=== PATIENT | female | born 1935 | race Hispanic/Latino ===

== ENCOUNTER → 2017-11-28 | Outpatient (CLI) | payer OTHER ==
[~2017-11-28] MED LIST: DIOVAN80 MG PO; METFORMIN HCL500 MG PO; OMEPRAZOLE40 MG PO; ULTRAM 50MG50 MG PO
--- NOTE | 2017-11-28 13:18 | Diagnostic Imaging Report ---
PROCEDURE:US RETROPERITONEAL ( KIDNEY ). COMPARISON:Patients [facility], US, US ABDOMEN COMPLETE, 05/24/2016, 10:15. INDICATIONS:Bladder Infection TECHNIQUE:Ultrasound examination was performed of the kidneys and bladder. FINDINGS: RIGHT KIDNEY:9.4 cm in length. No solid or cystic mass, echogenic calculi, or hydronephrosis. Normal parenchymal echogenicity. LEFT KIDNEY: 10.5 cm in length. No solid or cystic mass, echogenic calculi, or hydronephrosis. Normal parenchymal echogenicity. Mild prominence of the left renal pelvis likely a small extrarenal pelvis without dilatation of the calyceal system. BLADDER:Normal. CONCLUSION: Small left extrarenal pelvis, otherwise unremarkable renal ultrasound. Bettina ADAM M.D. DICTATED BY: Bettina ADAM M.D. ON 11/28/2017 AT 13:20 ELECTRONICALLY APPROVED BY: Bettina ADAM M.D. ON 11/28/2017 AT 13:20
== END ==
LOC: US 11:45
PROVIDERS: ATTEND Urology
DX: N30.90 Cystitis, unspecified without hematuria (principal)
CPT/HCPCS: 76770

== ENCOUNTER → 2018-07-16 | Outpatient (CLI) | payer OTHER ==
[~2018-07-16] MED LIST changes: +ACETAMINOPHEN325 M1 PO; +HYDROCHLOROTHIA25 MG PO; +IOPAMIDOL 370 MG/ML 200 ML INFUS..BTL INJ ONE; +LOSARTAN POTAS100 MG PO; +SODIUM CHLORIDE 0.9% 50ML 50 ML ONE; +TRADJENTA5 MG PEG; +linzess PO
[2018-07-16 14:05] LABS: BLOOD UREA NITROGEN 8 mg/dL (7-26); BUN/CREATININE RATIO 10 (6-25); EST GLOMERULAR FILTRATION RATE > 60 ML/MIN (60-)
--- NOTE | 2018-07-16 15:08 | Diagnostic Imaging Report ---
EXAM: CT Abdomen and Pelvis WITH contrast INDICATION: ^[id number] ^1430 ^LOWER ABD PAIN/DIVERTICULOSIS COMPARISON: None. TECHNIQUE: Abdomen and pelvis were scanned utilizing a multidetector helical scanner from the lung base to the pubic symphysis after administration of IV contrast. Coronal and sagittal reformations were obtained. Dose modulation, iterative reconstruction, and/or weight based adjustment of the mA/kV was utilized to reduce the radiation dose to as low as reasonably achievable. Routine protocol was performed. Scan was performed when during portal venous phase. IV CONTRAST: 100 mL of Isovue-370 ORAL CONTRAST: Water COMPLICATIONS: None RADIATION DOSE: Total DLP: 590.30 mGy*cm Estimated effective dose: (DLP x 0.015 x size factor) mSv CTDIvol has been reviewed. It is below the limits set by the Radiation Protocol Committee (RPC). FINDINGS: LINES and TUBES: None. LOWER THORAX: Unremarkable HEPATOBILIARY: No focal hepatic lesions. No biliary ductal dilation. GALLBLADDER: Not visualized. SPLEEN: No splenomegaly. PANCREAS: No focal masses or ductal dilatation. ADRENALS: No adrenal nodules KIDNEYS/URETERS: Kidneys enhance symmetrically. No hydronephrosis. Mildly hyperdense exophytic left inferior pole hypodensity, could represent a complex cyst. There are additional left renal subcentimeter hypodensities which are too small to characterize. No stones. GI TRACT: No abnormal distention, wall thickening, or evidence of bowel obstruction. Few scattered colonic diverticula without evidence of diverticulitis. Appendix is surgically absent. PELVIC ORGANS/BLADDER: Status post hysterectomy. Bladder is unremarkable. LYMPH NODES: No lymphadenopathy. VESSELS: Moderate aortoiliac atherosclerotic disease. PERITONEUM / RETROPERITONEUM: No free air or fluid. BONES: No acute osseous abnormalities. Degenerative changes of the hips and spine, most notable at L5-S1. SOFT TISSUES: Evidence of abdominal wall hernia repair. IMPRESSION: 1. No acute inflammatory process in the abdomen/pelvis. 2. Mildly hyperdense left renal inferior pole lesion is probably a complex cyst. Renal ultrasound can be obtained for further evaluation. Signed by: Dr. Mitul Guadarrama MD on 07/16/2018 3:05 PM
== END ==
LOC: CT 12:30
PROVIDERS: ATTEND Family Medicine
DX: R10.30 Lower abdominal pain, unspecified (principal); R11.2 Nausea with vomiting, unspecified; K57.90 Diverticulosis of intestine, part unspecified, without perforation or abscess without bleeding
CPT/HCPCS: 36415; 74177; 82565; 84520; Q9967

== ENCOUNTER 2018-07-17 22:57 | Emergency (ER) | payer MEDICARE ==
[~2018-07-17] VITALS: Ht 149.9 cm; Wt 60.8 kg
[~2018-07-17 22:57] MED LIST changes: -ACETAMINOPHEN325 M1 PO; -HYDROCHLOROTHIA25 MG PO; -IOPAMIDOL 370 MG/ML 200 ML INFUS..BTL INJ ONE; -LOSARTAN POTAS100 MG PO; -SODIUM CHLORIDE 0.9% 50ML 50 ML ONE; -TRADJENTA5 MG PEG; -linzess PO
--- OUTSIDE RECORDS SUMMARY | 2018-07-17 23:00 | XMS REPORT ---
Author Author [facility] Address Unknown Phone Unavailable Care Team Providers Care Destination Specialist Name Role Phone LIGIA WEST Unavailable Unavailable Christi RINCON Unavailable Unavailable Payers Payer Name Policy Type Policy Number Effective Date Expiration Date Problems This patient has no known problems. Allergies, Adverse Reactions, Alerts Allergy Name Allergy Type Status Severity Reaction(s) Onset Date Inactive Date Treating Clinician Comments codeine DA Active MO 2018-06-28 00:00:00 codeine DA Active MO 2017-07-17 00:00:00 Medications This patient has no known medications. Results Test Description Test Time Test Comments Text Results Atomic Results Result Comments CT ABDOMEN/PELVIS W 2018-07-16 14:47:00 [place] [address] Patient Name: SHARLENE MOORE MR #: [id number] : 1935 Age/Sex: 83/F Req #: [id number] Adm Physician: Ordered by: LIGIA WEST DO Report #: [id number] Location: CT Room/Bed: Procedure: [id number] CT/CT ABDOMEN/PELVIS W Exam Date: 07/16/18 Exam Time: 1430 REPORT STATUS: Signed EXAM: CT Abdomen and Pelvis WITH contrast INDICATIO N: [id number] 1430 LOWER ABD PAIN/DIVERTICULOSIS COMPARISON: None. TECHNIQUE: Abdomen and pelvis were scanned utilizing a multidetector helical scanner from the lung base to the pubic symphysis after administration of IV contrast. Coronal and sagittal reformations were obtained. Dose modulation, iterative reconstruction, and/or weight based adjustment of the mA/kV was utilized to reduce the radiation dose to as low as reasonably achievable. Routine protocol was performed. Scan was performed when during portal venous phase. IV CONTRAST: 100 mL of Isovue-370 ORAL CONTRAST: Water COMPLICATIONS: None RADIATION DOSE: Total DLP: 590.30 mGy*cm Estimated effective dose: (DLP x 0.015 x size factor) mSv CTDIvol has been reviewed. It is below the limits set by the Radiation Protocol Committee (RPC). FINDINGS: LINES and TUBES: None. LOWER THORAX: Unremarkable HEPATOBILIARY: No focal hepatic l esions. No biliary ductal dilation. GALLBLADDER: Not visualized. SPLEEN: No splenomegaly. PANCREAS: No focal masses or ductal dilatation. ADRENALS: No adrenal nodules KIDNEYS/URETERS: Kidneys enhance symmetrically. No hydronephrosis. Mildly hyperdense exophytic left inferior pole hypodensity, could represent a complex cyst. There are additional left renal subcentimeter hypodensities which are too small to characterize. No stones. GI TRACT: No abnormal distention, wall thickening, or evidence of bowel obstruction. Few scattered colonic diverticula without evidence of diverticulitis. Appendix is surgically absent. PELVIC ORGANS/BLADDER: Status post hysterectomy. Bladder is unremarkable. LYMPH NODES: No lymphadenopathy. VESSELS: Moderate aortoiliac atherosclerotic disease. PERITONEUM / RETROPERITONEUM: No free air or fluid. BONES: No acute osseous abnormalities. Degenerative changes of the hips and spine, most notable at L5- S1. SOFT TISSUES: Evidence of abdominal wall hernia repair. IMPRESSION: 1. No acute inflammatory process in the abdomen/pelvis. 2. Mildly hyperdense left renal inferior pole lesion is probably a complex cyst. Renal ultrasound can be obtained for further evaluation. Signed by: Dr. Mitul Witt MD on 07/16/2018 3:05 PM Dictated By: MITUL WITT MD 1502 Transcribed By: JOHN on 07/16/18 1501 COPY TO: LIGIA WEST DO US RENAL RETROPERITONEAL COMP [place] [address] Patient Name: SHARLENE MOORE MR #: [id number] : 1935 Age/Sex: 82/F Req #: [id number] Adm Physician: Ordered by: JILLIAN RINCON MD Report #: [id number] Location: Room/Bed: Procedure: [id number] US/US RENAL RETROPERITONEAL COMP Exam Date: Exam Time: REPORT STATUS: Signed PROCEDURE: US RETROPERITONEAL ( KIDNEY ). COMPARISON: Patients [facility], US, US ABDOMEN COMPLETE, 05/24/2016, 10:15. INDICATIONS: Bladder Infection TECHNIQUE: Ultrasound examination was performed of the kidneys and bladder. FINDINGS: RIGHT KIDNEY: 9.4 cm in length. No solid or cystic mass, echogenic calculi, or hydronephrosis. Normal parenchymal echogenicity. LEFT KIDNEY: 10.5 cm in length. No solid or cystic mass, echogenic calculi, or hydronephrosis. Normal parenchymal echogenicity. Mild prominence of the left renal pelvis likely a small extrarenal pelvis without dilatation of the calyceal system. BLADDER: Normal. CONCLUSION: Small left extrarenal pelvis, otherwise unremarkable renal ultrasound. Bettina ADAM M.D. DICTATED BY: Bettina ADAM M.D. ON 11/28/2017 AT 13:20 ELECTRONICALLY APPROVED BY: Bettina ADAM M.D. ON 11/28/2017 AT 13:20 Dictated By: YAMIL ADAM MD, MD 1320 Transcribed By: ALIN on 11/28/17 1320 COPY TO: JILLIAN RINCON MD
[2018-07-17] MEDS ORDERED: CLONIDINE HCL 0.2 MG TAB PO ONE (23:15)
[2018-07-17] MEDS ORDERED: HYDROCHLOROTHIA25 MG PO (23:58)
[2018-07-17] MEDS ORDERED: LOSARTAN POTAS100 MG PO (23:58)
[2018-07-17] MEDS ORDERED: TRADJENTA5 MG PEG (23:58)
[2018-07-17] MEDS ORDERED: ACETAMINOPHEN325 M1 PO (23:58)
[2018-07-18 01:41] VITALS: BP 140/69
[2018-07-19] MEDS ORDERED: linzess PO (21:22)
== END 2018-07-18 01:52 | disposition home or self-care (01) ==
LOC: ER 22:57
DX: I10 Essential (primary) hypertension (principal); E11.9 Type 2 diabetes mellitus without complications; E78.00 Pure hypercholesterolemia, unspecified
CPT/HCPCS: 99282

== ENCOUNTER 2018-07-19 16:38 | Observation (INO) | payer MEDICARE, OTHER ==
[~2018-07-19] VITALS: Ht 149.9 cm; Wt 61.0 kg
[~2018-07-19 16:38] MED LIST changes: +ACETAMINOPHEN325 M1 PO; +HYDROCHLOROTHIA25 MG PO; +LOSARTAN POTAS100 MG PO; +TRADJENTA5 MG PEG
[2018-07-19] MEDS ORDERED: ASPIRIN 81 MG CHEW TAB PO ONE (17:30)
--- NOTE | 2018-07-19 18:42 | Diagnostic Imaging Report ---
EXAMINATION: CHEST SINGLE (PORTABLE) INDICATION: CHEST PAIN COMPARISON: None FINDINGS: TUBES and LINES: None. LUNGS: Mild left basilar subsegmental atelectasis. There is no evidence of pneumonia or pulmonary edema. PLEURA: No pleural effusion or pneumothorax. HEART AND MEDIASTINUM: The cardiomediastinal silhouette is unremarkable. BONES AND SOFT TISSUES: No acute osseous lesion. UPPER ABDOMEN: No free air under the diaphragm. IMPRESSION: No acute thoracic abnormality. Signed by: Dr. Bettina Clements M.D. on 07/19/2018 6:38 PM
[2018-07-19 19:00] LABS: BASOPHILS % 0.5 % (0.0-1.0); EOSINOPHILS # (AUTO) 0.1 (0.0-0.4); EOSINOPHILS % 0.9 % (0.0-6.0); HEMATOCRIT 39.2 % (34.2-44.1); HEMOGLOBIN 13.7 g/dL (12.0-16.0); LYMPHOCYTES # (AUTO) 1.1 (1.0-3.2); LYMPHOCYTES % 14.2 % (18.0-39.1); MEAN CORPUSCULAR HEMOGLOBIN 32.9 pg (28-32); MEAN CORPUSCULAR HGB CONC 34.9 g/dL (31-35); MONOCYTES # (AUTO) 0.6 (0.2-0.8); MONOCYTES % 7.6 % (4.4-11.3); NEUTROPHILS # (AUTO) 5.6 (2.1-6.9); NEUTROPHILS % 76.1 % (38.7-80.0); PLATELET COUNT 293 x10e3/uL (140-360); RED BLOOD COUNT 4.17 x10e6/uL (3.6-5.1); RED CELL DISTRIBUTION WIDTH 11.8 % (11.7-14.4)
[2018-07-19 19:27] LABS: INR 0.84; PROTHROMBIN TIME 12.3 seconds (11.9-14.5)
[2018-07-19 19:28] LABS: ALANINE AMINOTRANSFERASE 15 IU/L (0-55); ALBUMIN 4.5 g/dL (3.5-5.0); ALBUMIN/GLOBULIN RATIO 1.4 (0.8-2.0); ALKALINE PHOSPHATASE 93 IU/L (40-150); ANION GAP 14.8 mmol/L (8-16); BLOOD UREA NITROGEN 13 mg/dL (7-26); BUN/CREATININE RATIO 16 (6-25); CALCIUM 9.7 mg/dL (8.4-10.2); CARBON DIOXIDE 23 mmol/L (22-29); CHLORIDE 91 mmol/L (98-107); CREATINE KINASE 123 IU/L (29-168); CREATININE, SERUM 0.81 mg/dL (0.57-1.11); EST GLOMERULAR FILTRATION RATE > 60 ML/MIN (60-); GLUCOSE 112 mg/dL (74-118); PARTIAL THROMBOPLASTIN TIME 29.9 seconds (23.8-35.5); POTASSIUM 3.8 mmol/L (3.5-5.1); SODIUM 125 mmol/L (136-145)
[2018-07-19] MEDS ORDERED: CLONIDINE HCL 0.1 MG TAB PO ONE (20:00)
[2018-07-19] MEDS ORDERED: SODIUM CHLORIDE 0.9% 1000ML 1,000 ML IV STA (20:10)
[2018-07-19] MEDS ORDERED: linzess PO (21:22)
[2018-07-19] MEDS ORDERED: SODIUM CHLORIDE 0.9% 1000ML 1,000 ML IV SCH (21:22)
[2018-07-19] MEDS ORDERED: HYDRALAZINE HCL 20 MG/ML VIAL IV PRN (21:30)
[2018-07-19] MEDS ORDERED: DEXTROSE 50% SYRINGE 50 ML IV PRN (21:30)
[2018-07-19 21:54] LABS: CLARITY,URINE HAZY (CLEAR); COLOR,URINE YELLOW (YELLOW)
[2018-07-19 21:55] LABS: BILIRUBIN,URINE NEGATIVE (NEGATIVE); KETONES,URINE NEGATIVE (NEGATIVE); LEUKOCYTE ESTERASE ,URINE 1+ (NEGATIVE); NITRITE,URINE NEGATIVE (NEGATIVE); PROTEIN,URINE DIPSTICK NEGATIVE (NEGATIVE); URINE UROBILINOGEN 0.2 mg/dL (0.2 - 1)
[2018-07-19 21:56] LABS: BACTERIA,URINE MODERATE /HPF; EPITHELIAL CELLS,URINE FEW /LPF
[2018-07-19 22:31] VITALS: BP 148/65
[2018-07-19 22:56] VITALS: BP_SYST 144; BP_SYST 148; BP_DIAS 47; BP_DIAS 65
--- NOTE | 2018-07-19 23:00 | NUR ---
Received patient from ER via stretcher. AAOx3 and amb with stand by assist. Patient claimed to have fallen in the past at the MD office few days ago. No s/s of resp distress. Denies pain, DOWNS, or n/v/d at this time. Has RAC20# and started n/s @ 75cc/hr. Noted edema to ble +1. Oriented to room. Call light within reach and instructed to call for assistance. Patient verbalized understanding to instructions. Bed alarm on.
[2018-07-19 23:06] VITALS: BP 144/65
[2018-07-20 04:00] VITALS: BP 121/55
[2018-07-20 05:58] LABS: BASOPHILS % 0.7 % (0.0-1.0); EOSINOPHILS # (AUTO) 0.1 (0.0-0.4); EOSINOPHILS % 1.9 % (0.0-6.0); HEMATOCRIT 32.8 % (34.2-44.1); HEMOGLOBIN 11.3 g/dL (12.0-16.0); LYMPHOCYTES % 16.8 % (18.0-39.1); MEAN CORPUSCULAR HEMOGLOBIN 32.8 pg (28-32); MEAN CORPUSCULAR HGB CONC 34.5 g/dL (31-35); MEAN CORPUSCULAR VOLUME 95.3 fL (81-99); MONOCYTES # (AUTO) 0.7 (0.2-0.8); MONOCYTES % 12.1 % (4.4-11.3); PLATELET COUNT 244 x10e3/uL (140-360); RED BLOOD COUNT 3.44 x10e6/uL (3.6-5.1); RED CELL DISTRIBUTION WIDTH 11.9 % (11.7-14.4)
[2018-07-20 06:11] LABS: ALANINE AMINOTRANSFERASE 11 IU/L (0-55); ALBUMIN 3.2 g/dL (3.5-5.0); ALBUMIN/GLOBULIN RATIO 1.3 (0.8-2.0); ALKALINE PHOSPHATASE 65 IU/L (40-150); BLOOD UREA NITROGEN 11 mg/dL (7-26); BUN/CREATININE RATIO 15 (6-25); CALCIUM 8.4 mg/dL (8.4-10.2); CARBON DIOXIDE 23 mmol/L (22-29); CHLORIDE 103 mmol/L (98-107); CREATININE, SERUM 0.72 mg/dL (0.57-1.11); EST GLOMERULAR FILTRATION RATE > 60 ML/MIN (60-); GLUCOSE 104 mg/dL (74-118); SODIUM 134 mmol/L (136-145)
--- NOTE | 2018-07-20 07:00 | NUR ---
SHIFT REPORT RECEIVED FROM NIGHT RN. PT DENIES NEEDS AT THIS TIME.
[2018-07-20] MEDS: INSULIN REGULAR, HUMAN 100 UNIT/1 ML 3ML VIAL SQ SCH ×4 (07:30→20:28)
[2018-07-20 08:00] VITALS: BP 121/55
[2018-07-20 08:34] VITALS: BP 132/60
[2018-07-20] MEDS ORDERED: LINZESS 145 MG PO SCH (09:00)
[2018-07-20] MEDS ORDERED: LINACLOTIDE 145 MCG CAPSULE PO SCH (09:00)
[2018-07-20] MEDS: NON-FORMULARY MEDICATION (Linagliptin (Tradjenta) 5 MG) PEG SCH (09:00)
[2018-07-20] MEDS: METOPROLOL TARTRATE 25 MG TAB PO SCH ×2 (09:10→17:43)
[2018-07-20] MEDS: LOSARTAN POTASSIUM 100 MG TAB PO SCH (09:10)
--- NOTE | 2018-07-20 10:16 | Consultation ---
DATE OF CONSULTATION: July 20, 2018 NEPHROLOGY CONSULTATION REASON FOR CONSULTATION: Hypertension and hyponatremia. HISTORY OF PRESENT ILLNESS: An 83-year-old female with history of hypertension presented to [facility] on July 19, 2018 with weakness and difficult to control blood pressure. The patient apparently had been in the hospital emergency room 2 nights prior with difficult to control blood pressure. Her blood pressure was brought down and she was told to followup with her primary care physician. The patient went to see her primary care physician and was instructed to go to the emergency room. The patient at this time feels much improved. She is eating breakfast and has no further complaints. REVIEW OF SYSTEMS: As above. All other systems negative. PAST MEDICAL HISTORY 1. Hypertension. 2. Diabetes. PAST SURGICAL HISTORY 1. Hernia repair. 2. Hysterectomy. 3. Appendectomy. 4. Cholecystectomy. SOCIAL HISTORY: No tobacco. No alcohol. No IV drugs. FAMILY HISTORY: Positive for hypertension and diabetes. ALLERGIES: CODEINE. CURRENT MEDICATIONS: See list. Home medications included hydrochlorothiazide, losartan, Linzess, Tradjenta. PHYSICAL EXAMINATION VITAL SIGNS: Blood pressure 121/55, pulse 76, respiratory rate 20, temperature 97.4. GENERAL: In no apparent distress. HEENT: Oropharynx is clear. No scleral icterus. No periorbital edema. NECK: Supple. No elevation of jugular venous pressure. No lymphadenopathy. CHEST: Clear to auscultation anteriorly bilaterally. CARDIOVASCULAR: Regular rhythm. No murmurs, rubs or gallops. ABDOMEN: Soft. Positive bowel sounds. No tenderness. No rebound. EXTREMITIES: No edema. No clubbing. No cyanosis. SKIN: Warm. LABS: Sodium 134 up from 125, potassium 4, chloride 103; CO2 of 23, BUN 11; creatinine 0.72, albumin 3.2. White count 5.89, hemoglobin 11.3, hematocrit 32.8; platelets 244. Urine osmolality pending, urine sodium 38, and 11 to 20 wbc's. ASSESSMENT AND PLAN 1. Hypertension. Blood pressure well controlled on current regimen. The patient should be discharged on metoprolol and losartan and hydrochlorothiazide should be discontinued. 2. Hyponatremia with symptoms of weakness suspected volume depletion. Hydrochlorothiazide again should be discontinued, instructed the patient. 3. Euvolemic on exam. The patient appeared dry when she came into the emergency room. We will discontinue IV fluids. 4. Diabetes per primary team. Job#: [id number] LAKIA
[2018-07-20] MEDS: CEFTRIAXONE SOD 1 GM/NS 50 ML 50 ML IV SCH (12:37)
--- NOTE | 2018-07-20 13:58 | History and Physical ---
CHIEF COMPLAINT: Weakness. HISTORY OF PRESENT ILLNESS: This is an 83-year-old woman who presented to [facility] with generalized weakness. Patient also states that she had diarrhea for 2 days. Patient currently take linaclotide in a formalin just for chronic constipation. In the emergency room, everything was unremarkable. Her sodium is 125. She was also found to have blood pressure of 197/86 on admission. The patient denies any chest pain at this time. Patient underwent a chest x-ray, which was unremarkable. Patient was admitted for further evaluation and treatment. Repeat electrolyte this morning revealed sodium of 134. Patient did receive a liter of normal saline overnight. Patient's B type natriuretic peptide level was normal at 29. In the emergency room, patient had urinalysis done, which revealed 1+ leukocytes esterase, 6 to 10 red blood cells per high power field, 11 to 20 white blood cells per high power field, and moderate bacteria. Urine was also hazy and yellow in color. REVIEW OF SYSTEMS GENERAL: Weight has been stable, just complaint of weakness over the last few days. HEENT: No headaches. No visual changes. CARDIOVASCULAR/RESPIRATORY: No chest pain or cough. GI: Has chronic constipation for the past few days. She has had diarrhea. : Complaints of urinary frequency, but no UTI type symptoms. NEUROMUSCULAR: No limb weakness or numbness. PAST MEDICAL HISTORY 1. Hypertensive heart disease. 2. Type 2 diabetes mellitus. 3. Chronic constipation. PAST SURGICAL HISTORY 1. Abdominal hernia repair 3 times, last one in 2016. 2. Cholecystectomy. 3. Hysterectomy. ALLERGIES: CODEINE. FAMILY HISTORY: Noncontributory. SOCIAL HISTORY: Woman has been for many years, currently lives with an adult son and granddaughter. No history of tobacco or alcohol use. HOME MEDICATIONS 1. Tradjenta 5 mg daily. 2. Losartan 100 mg daily. 3. Hydrochlorothiazide 25 mg. 4. Linzess 145 mcg daily. PHYSICAL EXAMINATION GENERAL: She is awake, alert and found in distress, very pleasant. VITALS: Height is 4 feet 11 inches, weight is 134 pounds, and BMI 27. Her adult son is at bedside who provides most of the history. Blood pressure is 130/60, pulse 72, respiratory rate is 18, oxygen saturation 99%, and temperature 97.0. INTEGUMENT: Skin is warm and dry. No pallor, jaundice or diaphoresis. HEENT: Anicteric sclerae. Moist mucous membranes. NECK: Supple. CARDIOVASCULAR: Distant heart sounds. Regular rate and rhythm. No S4 or gallops. LUNGS: No rales. No rhonchi. No wheezing. ABDOMEN: Soft. Nontender. No masses or organomegaly appreciated. EXTREMITIES: No edema or deformity. DIAGNOSES 1. Hypertensive heart disease. 2. Hypernatremia likely secondary to hypervolemia and diuretic use. 3. Urinary tract infection. 4. Type 2 diabetes mellitus. 5. Iatrogenic diarrhea (likely secondary to linaclotide). PLAN 1. Stop linaclotide in form of Linzess because of diarrhea. 2. Discontinue hydrochlorothiazide as per renal's recommendation. 3. Stop intravenous fluid, suspicion has hypertensive heart disease. 4. Blood pressure controlled. 5. Continue metoprolol 25 mg twice a day and losartan 100 mg for blood pressure control. 6. We will follow urine culture. 7. We will start empiric intravenous ceftriaxone for patient's urinary tract infection. 8. Follow electrolytes. I spent 45 minutes in the care of this patient. Job#: [id number] GEORGIA CENTENO
[2018-07-20 14:44] VITALS: BP 127/59
--- NOTE | 2018-07-20 15:11 | NUR ---
Nutrition Screen Note RD Recommendation for Physician: Continue diet as ordered Plan of Care: RD following, monitoring for adequacy and tolerance Nutrition reason for involvement: Nutrition Risk Trigger - MST Primary Diagnose(s): HTN/hyponatremia Ht:59 in Wt:134.44lbs BMI:27.2 kg/m2 IBW:95lbs RD Assessment:(07/20/2018) Initial encounter with patient. Pt denies nausea, vomiting or diarrhea, nor has any difficulty chewing or swallowing. Pt states that she avoids spicy foods. Current Diet: 1800 ADA Malnutrition Evaluation (07/20/2018) The patient does not meet criteria for a specified degree of malnutrition at this time. Will re-evaluate at follow-up as appropriate. Diet Education Needs Assessment: Diet education not indicated. Diet Adequacy: Meeting calorie needs, Meeting protein needs, Meeting fluid needs Tolerance: Tolerating PO Nutrition Care Level: Erik Figuerao RD, LD, CNSC
[2018-07-20 16:53] VITALS: BP 141/63
[2018-07-20 20:00] VITALS: BP 149/68
[2018-07-21] VITALS: BP 168/71
[2018-07-21 00:45] VITALS: BP 132/70
[2018-07-21 04:00] VITALS: BP 132/61
[2018-07-21 06:21] LABS: BASOPHILS # (AUTO) 0.1 (0.0-0.1); BASOPHILS % 0.8 % (0.0-1.0); EOSINOPHILS # (AUTO) 0.2 (0.0-0.4); HEMATOCRIT 37.6 % (34.2-44.1); HEMOGLOBIN 12.6 g/dL (12.0-16.0); LYMPHOCYTES # (AUTO) 1.3 (1.0-3.2); LYMPHOCYTES % 17.6 % (18.0-39.1); MEAN CORPUSCULAR HEMOGLOBIN 32.5 pg (28-32); MEAN CORPUSCULAR HGB CONC 33.5 g/dL (31-35); MEAN CORPUSCULAR VOLUME 96.9 fL (81-99); MONOCYTES # (AUTO) 0.9 (0.2-0.8); MONOCYTES % 11.7 % (4.4-11.3); NEUTROPHILS # (AUTO) 5.2 (2.1-6.9); NEUTROPHILS % 67.6 % (38.7-80.0); PLATELET COUNT 265 x10e3/uL (140-360); RED BLOOD COUNT 3.88 x10e6/uL (3.6-5.1); RED CELL DISTRIBUTION WIDTH 12.3 % (11.7-14.4)
[2018-07-21 06:51] LABS: ANION GAP 13.2 mmol/L (8-16); BLOOD UREA NITROGEN 13 mg/dL (7-26); BUN/CREATININE RATIO 18 (6-25); CALCIUM 9.3 mg/dL (8.4-10.2); CARBON DIOXIDE 24 mmol/L (22-29); CHLORIDE 104 mmol/L (98-107); CREATININE, SERUM 0.72 mg/dL (0.57-1.11); EST GLOMERULAR FILTRATION RATE > 60 ML/MIN (60-); GLUCOSE 104 mg/dL (74-118); POTASSIUM 4.2 mmol/L (3.5-5.1); SODIUM 137 mmol/L (136-145)
--- NOTE | 2018-07-21 07:00 | NUR ---
SHIFT REPORT RECEIVED FROM NIGHT RN. PT DENIES NEEDS AT THIS TIME.
[2018-07-21] MEDS: INSULIN REGULAR, HUMAN 100 UNIT/1 ML 3ML VIAL SQ SCH ×2 (07:30→11:30)
[2018-07-21 08:00] VITALS: BP 132/61
[2018-07-21 08:16] VITALS: BP 157/70
[2018-07-21] MEDS: NON-FORMULARY MEDICATION (Linagliptin (Tradjenta) 5 MG) PEG SCH (08:20)
[2018-07-21] MEDS: LOSARTAN POTASSIUM 100 MG TAB PO SCH (08:21)
[2018-07-21] MEDS ORDERED: METOPROLOL TARTRATE 25 MG TAB PO SCH (09:00)
[2018-07-21 12:02] VITALS: BP 142/66
[2018-07-21] MEDS: CEFTRIAXONE SOD 1 GM/NS 50 ML 50 ML IV SCH (12:39)
[2018-07-21] MEDS ORDERED: CEFUROXIME250 MG PO (12:59)
[2018-07-21] MEDS ORDERED: LOSARTAN POTAS100 MG PO (13:02)
[2018-07-21] MEDS ORDERED: METOPROLOL TART25 MG PO (13:02)
--- NOTE | 2018-07-21 13:12 | Discharge Summary ---
ADMISSION DIAGNOSES 1. Hypertensive heart disease. 2. Hyponatremia likely secondary to hypovolemia and diuretic use. 3. Urinary tract infection. 4. Type 2 diabetes mellitus. 5. Iatrogenic diarrhea likely secondary to linaclotide. DISCHARGE DIAGNOSES 1. Hyponatremia, resolved. 2. Hypertensive heart disease. 3. Urinary tract infection. 4. Iatrogenic diarrhea, resolved. HOSPITAL COURSE: This is an 83-year-old white woman who was initially admitted to [facility] with diagnosis of hypertensive heart disease and hyponatremia. The patient was seen by nephrology during this hospitalization, namely Dr. Marco Ferrera. Aboriginal Education Worker Coordinator felt that the patient's hyponatremia was secondary to volume depletion and diuretic use, namely hydrochlorothiazide. The patient was also diagnosed with urinary tract infection during this hospitalization, but urine culture did not reveal any bacterial growth. The patient's blood pressure was adequately controlled with oral losartan 100 mg daily and metoprolol tartrate 25 mg twice mg. The patient apparently had untoward reaction, namely altered mental status with intravenous hydralazine. The patient's hyponatremia resolved with intravenous saline and with the discontinuation of hydrochlorothiazide. The patient's condition on discharge was stable. DISCHARGE MEDICATIONS 1. Metoprolol tartrate 25 mg p.o. b.i.d. 2. Losartan 100 mg daily. 3. Cefuroxime 250 mg twice a day for 5 more days. We are going to discontinue hydrochlorothiazide, linagliptin, and Linzess. FOLLOWUP INSTRUCTIONS: Patient is instructed to follow up with her primary care doctor, namely Dr. Alma Rosa Silverio within 1 week. LEVON ESCOBAR MD Job#: [id number] ANGÉLICA cc: DR. AL[facility]
== END 2018-07-21 14:23 | disposition home or self-care (01) ==
LOC: ER 16:38 → INTOOBSV 21:32 → ERHOLD 21:32 → MED/SURG 22:32
DX: I11.9 Hypertensive heart disease without heart failure (principal); E87.1 Hypo-osmolality and hyponatremia; K52.1 Toxic gastroenteritis and colitis; T50.995A Adverse effect of other drugs, medicaments and biological substances, initial encounter; E11.9 Type 2 diabetes mellitus without complications; K59.09 Other constipation; T50.2X5A Adverse effect of carbonic-anhydrase inhibitors, benzothiadiazides and other diuretics, initial encounter; N39.0 Urinary tract infection, site not specified
CPT/HCPCS: 36415 ×3; 71045; 80048; 80053 ×2; 81001; 82550; 82553; 82948 ×3; 83880; 83935; 84300; 84484; 85025 ×3; 85610; 85730; 87086; 93005; 96361; 99284; G0378 ×3; J0360; J0696 ×2; J7030

== ENCOUNTER → 2018-08-05 | Outpatient (CLI) | payer OTHER ==
[~2018-08-05] MED LIST changes: +CEFUROXIME250 MG PO; +METOPROLOL TART25 MG PO; +linzess PO
--- NOTE | 2018-08-05 15:54 | Diagnostic Imaging Report ---
EXAM: BONE MINERAL DENSITY HISTORY: Bone mineralization evaluation COMPARISON: None DISCUSSION: Evaluation of the left hip and lumbar spine was performed utilizing DEXA Hologic bone densitometer. The study is technically adequate. The patient's fracture risk is compared to an age-matched control. The patient denies prior surgery/fracture of the spine, hips or forearm. Left hip femoral neck bone mineral density: 0.82 g/cm2, T-score is -0.2, Z-score is 2.3. Left hip total bone mineral density: 0.89 g/cm2, T-score is -0.4, Z-score is 1.9. Lumbar spine total bone mineral density: 0.95 gm/cm2, T-score is -0.9, Z-score is 1.9. Impression: Bone mineralization by WHO Classification is normal, the fracture risk is not increased. Signed by: Dr. Gregor Arrington M.D. on 08/05/2018 3:51 PM
== END ==
LOC: DX 13:08
PROVIDERS: ATTEND Family Medicine
DX: M81.0 Age-related osteoporosis without current pathological fracture (principal)
CPT/HCPCS: 77080

== ENCOUNTER 2018-08-11 14:48 | Emergency (ER) | payer OTHER ==
[~2018-08-11] VITALS: Ht 137.2 cm; Wt 58.5 kg
[2018-08-11 15:51] LABS: BASOPHILS # (AUTO) 0.1 (0.0-0.1); BASOPHILS % 0.8 % (0.0-1.0); EOSINOPHILS # (AUTO) 0.1 (0.0-0.4); EOSINOPHILS % 1.1 % (0.0-6.0); HEMATOCRIT 35.8 % (34.2-44.1); HEMOGLOBIN 12.6 g/dL (12.0-16.0); LYMPHOCYTES # (AUTO) 0.9 (1.0-3.2); LYMPHOCYTES % 14.1 % (18.0-39.1); MEAN CORPUSCULAR HEMOGLOBIN 33.4 pg (28-32); MEAN CORPUSCULAR HGB CONC 35.2 g/dL (31-35); MONOCYTES # (AUTO) 0.4 (0.2-0.8); MONOCYTES % 6.6 % (4.4-11.3); NEUTROPHILS # (AUTO) 4.8 (2.1-6.9); NEUTROPHILS % 77.1 % (38.7-80.0); PLATELET COUNT 266 x10e3/uL (140-360); RED BLOOD COUNT 3.77 x10e6/uL (3.6-5.1); RED CELL DISTRIBUTION WIDTH 12.4 % (11.7-14.4)
[2018-08-11 15:58] LABS: CLARITY,URINE CLEAR (CLEAR); COLOR,URINE YELLOW (YELLOW)
[2018-08-11 15:59] LABS: BILIRUBIN,URINE NEGATIVE (NEGATIVE); KETONES,URINE NEGATIVE (NEGATIVE); LEUKOCYTE ESTERASE ,URINE 1+ (NEGATIVE); NITRITE,URINE NEGATIVE (NEGATIVE); PROTEIN,URINE DIPSTICK NEGATIVE (NEGATIVE); URINE UROBILINOGEN 0.2 mg/dL (0.2 - 1)
[2018-08-11 16:03] LABS: BACTERIA,URINE FEW /HPF; EPITHELIAL CELLS,URINE FEW /LPF; RBC,URINE 0-5 /HPF (0-5)
[2018-08-11 16:04] LABS: ALANINE AMINOTRANSFERASE 22 IU/L (0-55); ALBUMIN 4.1 g/dL (3.5-5.0); ALBUMIN/GLOBULIN RATIO 1.4 (0.8-2.0); ALKALINE PHOSPHATASE 69 IU/L (40-150); BLOOD UREA NITROGEN 8 mg/dL (7-26); BUN/CREATININE RATIO 11 (6-25); CALCIUM 9.3 mg/dL (8.4-10.2); CARBON DIOXIDE 26 mmol/L (22-29); CHLORIDE 102 mmol/L (98-107); CREATININE, SERUM 0.75 mg/dL (0.57-1.11); EST GLOMERULAR FILTRATION RATE > 60 ML/MIN (60-); GLUCOSE 100 mg/dL (74-118); SODIUM 139 mmol/L (136-145)
--- NOTE | 2018-08-11 16:25 | NUR ---
AWAITING PHARMACY TO VERIFY MEDS.
--- NOTE | 2018-08-11 16:40 | NUR ---
AWAITING PHARMACY TO VERIFY MEDS.
--- NOTE | 2018-08-11 16:47 | NUR ---
S/W PHARMACY REGARDING UNVERIFIED MEDS
--- NOTE | 2018-08-11 17:16 | Diagnostic Imaging Report ---
EXAM: CT Abdomen and Pelvis WITHOUT contrast INDICATION: Pain COMPARISON: 07/16/2018 CT, no report available. TECHNIQUE: Abdomen and Pelvis was scanned utilizing a multidetector helical scanner without the use of IV contrast. Coronal and sagittal reformations were obtained. IV CONTRAST: None COMPLICATIONS: None RADIATION DOSE: Total DLP: 230 mGy*cm Estimated effective dose: (DLP x 0.015 x size factor) mSv CTDIvol has been reviewed. It is below the limits set by the Radiation Protocol Committee (RPC). Appropriate CT dose reduction techniques were utilized. FINDINGS: Abdomen: Lung Bases: Atelectasis. 3 x 6 mm nodule left lower lobe series 3 image 61 Solid Organs: Evaluation limited by lack of IV contrast. Mild bilateral perinephric stranding statistically senescent. No renal or ureteral calculi. Remainder nonenhanced exam unremarkable. Upper GI Tract: No small bowel obstructive changes. Vascularity: Moderate aortic vascular calcifications with no aneurysm. Lymph Nodes: No suspicious adenopathy. Other: Tiny fat-containing ventral wall hernia with additional postsurgical changes ventral wall. Pelvis: Bladder: Unremarkable. Other: Uterus absent. Colon: No acute colonic findings. Bones: Degenerative changes. IMPRESSION: 1. Within limitations of nonenhanced exam, no definite acute finding. No hydronephrosis or renal calculi. No definite ureteral calculi although presumed vascular calcifications are in close proximity to distal ureters, somewhat limiting evaluation. 2. Other stable findings as above. Signed by: Dr. Yasir Dias MD on 08/11/2018 5:13 PM
[2018-08-11] MEDS ORDERED: MORPHINE SULFATE 2 MG/ML SYR 1ML IV STA (17:30)
[2018-08-11] MEDS ORDERED: CEFTRIAXONE SOD 1 GM/NS 50 ML 50 ML IV ONE (17:30)
[2018-08-11] MEDS ORDERED: CEFTRIAXONE SOD 1 GM VIAL IV ONE (17:45)
[2018-08-11] MEDS ORDERED: ONDANSETRON HCL INJ 2MG/ML 2ML 2 MG/ML VIAL IV ONE (18:15)
[2018-08-11] MEDS ORDERED: TRAMADOL/APAP 37.5MG-325MG TAB PO PRN (18:45)
[2018-08-11] MEDS ORDERED: KEFLEX500 MG PO (19:06)
[2018-08-11] MEDS ORDERED: ULTRAM50 MG PO (19:07)
[2018-08-11 19:14] VITALS: BP 159/54
== END 2018-08-11 19:37 | disposition home or self-care (01) ==
LOC: ER 14:48
DX: R10.32 Left lower quadrant pain (principal); M54.5 Low back pain; R11.2 Nausea with vomiting, unspecified; N39.0 Urinary tract infection, site not specified; I10 Essential (primary) hypertension; E11.9 Type 2 diabetes mellitus without complications; K21.9 Gastro-esophageal reflux disease without esophagitis
CPT/HCPCS: 36415; 74176; 80053; 81001; 85025; 99284; J0696; J2405

== ENCOUNTER → 2018-08-29 | Day surgery (SDC) | payer MEDICARE, OTHER ==
[~2018-08-29] MED LIST changes: +KEFLEX500 MG PO; +LABETALOL HCL 5 MG/ML 20ML VIAL ONE; +OMEPRAZOLE20 MG PO; +PHENERGAN25 MG/1 ML PO; +PROPOFOL IV EMULSION 10 MG/ML 50 ML VIAL ONE; +ULTRAM50 MG PO
[2018-08-29 09:45] VITALS: BP 136/64
== END | disposition home or self-care (01) ==
LOC: OR 06:34
PROVIDERS: ATTEND Internal Medicine Gastroenterology
DX: K29.40 Chronic atrophic gastritis without bleeding (principal); K21.9 Gastro-esophageal reflux disease without esophagitis; K44.9 Diaphragmatic hernia without obstruction or gangrene; Z71.3 Dietary counseling and surveillance; E66.3 Overweight; I10 Essential (primary) hypertension; E11.9 Type 2 diabetes mellitus without complications; M19.90 Unspecified osteoarthritis, unspecified site; Z88.6 Allergy status to analgesic agent; Z79.84 Long term (current) use of oral hypoglycemic drugs; Z68.25 Body mass index [BMI] 25.0-25.9, adult
CPT/HCPCS: 36415; 43239; 82948; 88305; 88312; J2704; J3490

== ENCOUNTER 2019-02-10 16:23 | Emergency (ER) | payer MEDICARE, OTHER ==
[~2019-02-10] VITALS: Ht 137.2 cm; Wt 58.5 kg
[~2019-02-10 16:23] MED LIST changes: -LABETALOL HCL 5 MG/ML 20ML VIAL ONE; -PROPOFOL IV EMULSION 10 MG/ML 50 ML VIAL ONE
--- OUTSIDE RECORDS SUMMARY | 2019-02-10 16:27 | XMS REPORT | CCD ---
Author Author Auto Generated Organization [facility] Address Unknown Phone Unavailable Care Team Providers Care Record Press Supervisor Name Role Phone Apolonia Costello CP [phone] Zeina Venegas CP Jagdeep Britt CP Unavailable Adán Tran CP Unavailable Albert Tate CP ChartServer, Login CP Unavailable Donny Rivera CP Unavailable Antoinette Nieves CP Unavailable Charlie Badillo CP Unavailable Marilou Blair CP Unavailable SYSTEM, SYSTEM CP Unavailable Giancarlo Richardson CP [phone] Vilma Hernandez CP Unavailable Ángel Medellin CP Unavailable Samson Mathur CP Sharlene Maciel CP Unavailable Allergies, Adverse Reactions, Alerts Substance Reaction Status codeine ?? Active Medications Medication Instructions Start Date End Date Status Pepto-Bismol 262 262 mg, 15 ml, PO, QID, PRN, 120 05/22/2011 ?? Ordered mg/15 mL oral ml, for dyspepsia, Substitution suspension Allowed, SUSP Zofran 4 mg, Route: IVP, Drug form: INJ, 05/22/2011 05/22/2011 Completed ONCE, Priority: STAT, Start date: 05/22/11 23:06:00, Stop date: 05/22/11 23:06:00 morphine Sulfate 2 mg, Route: IVP, ONCE, Priority: 05/22/2011 05/22/2011 Completed STAT, Start date: 05/22/11 23:06:00, Stop date: 05/22/11 23:06:00 Sodium Chloride 0.9% 500 mL, Rate: 1,000 ml/hr, Infuse 05/22/2011 05/22/2011 Completed (Bolus) IV 500 mL over: 0.5 hr, Route: IV, Total Volume: 500, Bolus dose, Priority: STAT, Start date: 05/22/11 21:18:00, Duration: 1 doses or times, Stop date: 05/22/11 21:47:00 Saline Flush 0.9% 5 ml, Route: IVP, Drug Form: INJ, 05/22/2011 05/23/2011 Discontinued PRN, PRN Line Flush, Start date: 05/22/11 21:18:00, Duration: 24 hr, Stop date: 05/23/11 21:17:00 Reglan 10 mg oral 10 mg, 1 tab, PO, QID, PRN, 28 tab, 05/22/2011 05/29/2011 Ordered tablet nausea, Substitution Allowed, TAB Vital Signs Most recent to oldest [Reference Range]: 1 2 3 Height 152.40 cm (05/22/2011 19:11:00) ? Temperature Oral [96.4-99.1 DegF] 98.5 DegF (05/23/2011 00:12:00) ?? 98.3 DegF (05/23/2011 00:02:00) ?? 98 DegF (05/22/2011 22:23:00) ?? Systolic Blood Pressure [90-140 mmHg] 147 mmHg *HI* (05/23/2011 00:12:00) ?? 141 mmHg *HI* (05/23/2011 00:02:00) ?? 196 mmHg *HI* (05/22/2011 22:27:00) ?? Diastolic Blood Pressure [60-90 mmHg] 86 mmHg (05/23/2011 00:12:00) ?? 71 mmHg (05/23/2011 00:02:00) ?? 70 mmHg (05/22/2011 22:27:00) ?? Respiratory Rate [14-20 BRMIN] 18 BRMIN (05/23/2011 00:12:00) ?? 18 BRMIN (05/23/2011 00:02:00) ?? 16 BRMIN (05/22/2011 22:27:00) ?? Peripheral Pulse Rate [60-100 bpm] 78 bpm (05/23/2011 00:12:00) ?? 78 bpm (05/23/2011 00:02:00) ?? 72 bpm (05/22/2011 22:27:00) ?? Weight 63.636 kg (05/22/2011 19:11:00) ? Results URINALYSIS Most recent to oldest [Reference Range]: 1 UA Turbidity [>Clear] Clear (05/22/2011 19:40:00) ?? UA Color [>Yellow] Yellow *NA* (05/22/2011 19:40:00) ?? UA pH [5.0-8.0] 6.0 (05/22/2011 19:40:00) ?? UA Spec Grav [<<=1.030] 1.010 (05/22/2011 19:40:00) ?? UA Glucose [>Negative] Negative (05/22/2011 19:40:00) ?? UA Blood [>Negative] Negative (05/22/2011 19:40:00) ?? UA Ketones [>Negative] Negative *NA* (05/22/2011 19:40:00) ?? UA Protein [>Negative] Negative (05/22/2011 19:40:00) ?? UA Urobilinogen [0.1-1.0 EU/dL] 0.2 EU/dL (05/22/2011 19:40:00) ?? UA Bili [>Negative] Negative *NA* (05/22/2011 19:40:00) ?? UA Leuk Est [>Negative] Trace *ABN* (05/22/2011 19:40:00) ?? UA Nitrite [>Negative] Negative (05/22/2011 19:40:00) ?? UA WBC [>None Seen /HPF] 3-5 /HPF (05/22/2011 19:40:00) ?? UA RBC [>0-2] None Seen (05/22/2011 19:40:00) ?? UA Bacteria [>None Seen] None Seen (05/22/2011 19:40:00) ?? UA Sq Epi [>Few] None Seen (05/22/2011 19:40:00) ?? CHEMISTRY Most recent to oldest [Reference Range]: 1 Sodium Lvl [135-145 mEq/L] 140 mEq/L (05/22/2011 20:55:00) ?? Potassium Lvl [3.5-5.1 mEq/L] 3.9 mEq/L (05/22/2011 20:55:00) ?? Chloride Lvl [95-109 mEq/L] 103 mEq/L (05/22/2011 20:55:00) ?? CO2 [24-32 mEq/L] 32 mEq/L (05/22/2011 20:55:00) ?? AGAP [10.0-20.0 mEq/L] 8.9 mEq/L *LOW* (05/22/2011 20:55:00) ?? Creatinine Lvl [0.5-1.4 mg/dL] 0.6 mg/dL (05/22/2011 20:55:00) ?? BUN [7-22 mg/dL] 11 mg/dL (05/22/2011 20:55:00) ?? B/C Ratio [6-25] 18 (05/22/2011 20:55:00) ?? Glucose Lvl 105 mg/dL 1 *NA* (05/22/2011 20:55:00) ?? Total Protein [6.4-8.4 g/dL] 8.5 g/dL *HI* (05/22/2011 20:55:00) ?? Albumin Lvl [3.5-5.0 g/dL] 4.3 g/dL (05/22/2011 20:55:00) ?? Globulin [2.0-4.0 g/dL] 4.2 g/dL *HI* (05/22/2011 20:55:00) ?? A/G Ratio [0.7-1.6] 1.0 (05/22/2011 20:55:00) ?? Calcium Lvl [8.5-10.5 mg/dL] 9.3 mg/dL (05/22/2011 20:55:00) ?? ALT [0-65 U/L] 31 U/L (05/22/2011 20:55:00) ?? AST [0-37 U/L] 25 U/L (05/22/2011 20:55:00) ?? Alk Phos [39-136 U/L] 75 U/L (05/22/2011 20:55:00) ?? Bili Total [0.2-1.3 mg/dL] 0.4 mg/dL (05/22/2011 20:55:00) ?? Lipase Lvl [73-393 U/L] 88 U/L (05/22/2011 20:55:00) ?? Total CK [12-191 U/L] 90 U/L (05/22/2011 20:55:00) ?? CK MB [0.5-3.6 ng/mL] 0.6 ng/mL (05/22/2011 20:55:00) ?? CK MB Index [0.0-2.5] 0.7 (05/22/2011 20:55:00) ?? Troponin-I [0.00-0.40 ng/mL] <0.02 ng/mL (05/22/2011 20:55:00) ?? 1Interpretive Data: Reference Ranges : 0 - 7 days : 41 - 90 mg/dL7 days - 150 yrs : 70 - 99 mg/dL (fasting), based on the clinical recommendations of the [place] [employer]. HEMATOLOGY Most recent to oldest [Reference Range]: 1 WBC [3.7-10.4 K/CMM] 6.9 K/CMM (05/22/2011 20:55:00) ?? RBC [4.20-5.40 M/CMM] 4.14 M/CMM *LOW* (05/22/2011 20:55:00) ?? Hgb [12.0-16.0 g/dL] 13.3 g/dL (05/22/2011 20:55:00) ?? Hct [36.0-48.0 %] 38.4 % (05/22/2011 20:55:00) ?? MCV [81.0-99.0 fL] 92.9 fL (05/22/2011 20:55:00) ?? MCH [27.0-31.0 pg] 32.1 pg *HI* (05/22/2011:55:00) ?? MCHC [32.0-36.0 g/dL] 34.5 g/dL (05/22/2011 20:55:00) ?? RDW [11.5-14.5 %] 13.2 % (05/22/2011 20:55:00) ?? Platelet [133-450 K/CMM] 270 K/CMM (05/22/2011 20:55:00) ?? MPV [7.4-10.4 fL] 9.4 fL (05/22/2011 20:55:00) ?? Segs [45.0-75.0 %] 63.2 % (05/22/2011 20:55:00) ?? Lymphocytes [20.0-40.0 %] 24.8 % (05/22/2011 20:55:00) ?? Monocytes [2.0-12.0 %] 6.8 % (05/22/2011 20:55:00) ?? Eosinophils [0.0-4.0 %] 4.3 % *HI* (05/22/2011 20:55:00) ?? Basophils [0.0-1.0 %] 0.9 % (05/22/2011 20:55:00) ?? Segs-Bands # [1.5-8.1 K/CMM] 4.4 K/CMM (05/22/2011 20:55:00) ?? Lymphocytes # [1.0-5.5 K/CMM] 1.7 K/CMM (05/22/2011 20:55:00) ?? Monocytes # [0.0-0.8 K/CMM] 0.5 K/CMM (05/22/2011 20:55:00) ?? Eosinophils # [0.0-0.5 K/CMM] 0.3 K/CMM (05/22/2011 20:55:00) ?? Basophils # [0.0-0.2 K/CMM] 0.1 K/CMM (05/22/2011 20:55:00) ??
--- OUTSIDE RECORDS SUMMARY | 2019-02-10 16:27 | XMS REPORT | Continuity of Care Document ---
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 Role Phone [employer] Information [email or web address] Unavailable Unavailable Problems Problem Status Onset Date Classification Date Reported Comments Source DX: M25.512-PAIN IN LEFT SHOULDER Active 01/30/2019 [facility] OSTEOPOROSIS Active 03/11/2014 [facility] ROUTINE SCREENING Active 02/01/2012 [facility] ABNORMAL CHEST XRAY Active 08/21/2011 [facility] INCISIONAL HERNIA 553.21/62615 Active 07/28/2011 [facility] INCISIONAL HERNIA Active 07/28/2011 [facility] ABD PAIN Active 05/09/2011 [facility] DM - Diabetes mellitus Active Problem 08/29/2011 [facility] GERD - Gastro-esophageal reflux disease Active Problem 08/29/2011 [facility] HTN - Hypertension Active Problem 08/29/2011 [facility] Incisional hernia Active Problem 08/29/2011 [facility] Arthritis Active Problem 02/04/2019 [facility] DM - Diabetes mellitus Active Problem 02/04/2019 [facility] GERD - Gastro-esophageal reflux disease Active Problem 02/04/2019 [facility] HTN - Hypertension Active Problem 02/04/2019 [facility] Incisional hernia Active Problem 02/04/2019 [facility] Arthritis Active Problem 08/29/2011 [facility] Hypertension Active Problem 08/12/2018 [facility] Hyponatremia Active Problem 08/12/2018 [facility] INCISIONAL HERNIA Active [facility] Medications Medication Details Route Status Patient Instructions Ordering Provider Order Date Source Cephalexin Monohydrate (Keflex) 500 Mg Capsule Every 6 Hours Active Christian 08/11/2018 [facility] Tramadol Hcl (Ultram) 50 Mg Tablet Every 6 Hours as needed for Pain Active Christian 08/11/2018 [facility] Hydrochlorothiazide 25 Mg Tablet, 12.5 Mg Oral Daily@0600 Active 07/21/2018 [facility] Linagliptin (Tradjenta) 5 Mg Tablet, 5 Mg Peg Tube Daily Active 07/21/2018 [facility] Linzess , 145 Mg Oral Daily Active 07/21/2018 [facility] Acetaminophen 325 Mg Tablet, 325 Mg Oral Daily as needed for Pain Active 07/19/2018 [facility] Tramadol Hcl (Ultram 50MG*) 50 Mg Tab, 37.5 Mg Oral As Needed for Pain Active 07/19/2018 [facility] Metformin Hcl 500 Mg Tablet, 500 Mg Oral Twice A Day Active 07/17/2018 [facility] Omeprazole 40 Mg Capsule.dr, 1 Cap Oral Daily Active 07/17/2018 [facility] Valsartan (Diovan) 80 Mg Tab, 80 Mg Oral Daily Active 07/17/2018 [facility] Restoril 15 mg, 1 cap, Route: PO, Drug form: CAP, Bedtime, PRN Sleep, Start date: 08/26/11 12:04:00, Duration: 30 day, Stop date: 09/25/11 12:03:00 PO No Longer Active Gelber 08/26/2011 [facility] Crestor 20 mg, 2 tab, Route: PO, Drug form: TAB, Bedtime, Start date: 08/25/11 21:00:00, Duration: 30 day, Stop date: 09/23/11 21:00:00 PO No Longer Active Hadad 08/26/2011 [facility] tramadol 50 mg oral tablet 50 mg, 1 tab, Route: PO, Drug form: TAB, Q4H, PRN Pain, Start date: 08/25/11 17:31:00, Duration: 30 day, Stop date: 09/24/11 17:30:00 PO No Longer Active Hadad 08/25/2011 [facility] Tylenol 325 mg, 1 tab, Route: PO, Drug form: TAB, Q4H, PRN Pain, Start date: 08/25/11 17:31:00, Duration: 30 day, Stop date: 09/24/11 17:30:00 PO No Longer Active Hadad 08/25/2011 [facility] Ultracet oral tablet 1 tab, Route: PO, Drug Form: TAB, Q4H, PRN Pain, Start date: 08/25/11 11:05:00, Duration: 30 day, Stop date: 09/24/11 11:04:00 PO No Longer Active Hadad 08/25/2011 [facility] Milk of Magnesia 60 ml, Route: PO, Drug Form: SUSP, ONCE, Start date: 08/25/11 11:04:00, Stop date: 08/25/11 11:04:00 PO No Longer Active Hadad 08/25/2011 [facility] Diovan 80 mg, 1 tab, Route: PO, Drug form: TAB, Daily, Start date: 08/25/11 9:00:00, Duration: 30 day, Stop date: 09/23/11 9:00:00 PO No Longer Active Hadad 08/25/2011 [facility] metFORmin 500 mg oral tablet 500 mg, 1 tab, Route: PO, Drug form: TAB, Breakfast, Start date: 08/25/11 8:00:00, Duration: 30 day, Stop date: 09/23/11 8:00:00 PO No Longer Active Hadad 08/25/2011 [facility] acetaminophen-hydrocodone 325 mg-5 mg oral tablet 1 tab, Route: PO, Drug Form: TAB, Q4H, PRN Pain, Start date: 08/24/11 13:06:00, Duration: 30 day, Stop date: 09/23/11 13:05:00 PO No Longer Active Hadad 08/24/2011 [facility] Dilaudid 0.5 mg, 0.25 mL, Route: IVP, Drug form: INJ, Q3H, PRN Severe Pain, Start date: 08/24/11 13:06:00, Duration: 30 day, Stop date: 09/23/11 13:05:00 IVP No Longer Active Hadad 08/24/2011 [facility] NovoLog FlexPen 18 unit, 0.18 mL, Route: SUB-Q, Drug form: SOLN, Q6H, PRN Blood Glucose Results, Start date: 08/24/11 13:04:00, Duration: 30 day, Stop date: 09/23/11 13:03:00 SUB-Q No Longer Active Hadad 08/24/2011 [facility] glucagon 1 mg, Route: IM, Drug form: PDR/INJ, PRN, PRN Blood Glucose Results, Start date: 08/24/11 13:04:00, Duration: 30 day, Stop date: 09/23/11 14:03:00 IM No Longer Active Hadad 08/24/2011 [facility] Dextrose 50% in Water IV 50 mL, Route: IVP, PRN, Blood Glucose Results, Start date: 08/24/11 13:04:00, Duration: 30 day, Stop date: 09/23/11 14:03:00 IVP No Longer Active Hadad 08/24/2011 [facility] NovoLog FlexPen 9 unit, 0.09 mL, Route: SUB-Q, Drug form: SOLN, Q6H, PRN Blood Glucose Results, Start date: 08/24/11 13:03:00, Duration: 30 day, Stop date: 09/23/11 13:02:00 SUB-Q No Longer Active Hadad 08/24/2011 [facility] Crestor 20 mg oral tablet 20 mg, 1 tab, Bedtime, Substitution Allowed On Hold 08/24/2011 [facility] metFORmin 500 mg oral tablet 500 mg, 1 tab, PO, Daily, Substitution Allowed, with breakfastwith breakfast PO On Hold 08/24/2011 [facility] Unasyn 3 gm, 1 ea, Route: IVPB, ABXQ6H, Start date: 08/23/11 18:00:00, Duration: 24 hr, Stop date: 08/24/11 12:00:00 IVPB No Longer Active Hadad 08/24/2011 [facility] Protonix 40 mg, Route: IVP, Drug form: INJ, Before Dinner, Start date: 08/23/11 18:00:00, Duration: 30 day, Stop date: 09/22/11 16:30:00 IVP No Longer Active Hadad 08/24/2011 [facility] No Lovenox No Lovenox, 1, Drug form: MISC, Route: MISC, Continuous, 08/23/11 17:30:00, Duration: 30 day, Stop date: 09/22/11 18:29:00 MISC No Longer Active Hadad 08/23/2011 [facility] Dilaudid 1.5 mg, 0.75 mL, Route: IVP, Drug form: INJ, Q3H, PRN Pain, Start date: 08/23/11 17:06:00, Duration: 30 day, Stop date: 09/22/11 17:05:00 IVP No Longer Active Hadad 08/23/2011 [facility] Dextrose 5% with 0.45% NaCl IV 1,000 mL 1,000 mL, Rate: 120 ml/hr, Infuse over: 8.3 hr, Route: IV, Total Volume: 1,000, Start date: 08/23/11 17:04:00, Duration: 30 day, Stop date: 09/22/11 17:03:00 [facility] Diovan 80 mg, PO, Daily, Substitution Allowed PO On Hold 08/23/2011 [facility] lidocaine 1% 0.5 mL, Route: SUB-Q, Drug Form: INJ, ONCALL, Start date: 08/23/11 10:00:00, Duration: 1 doses or times SUB-Q No Longer Active [facility] 08/23/2011 [facility] Lactated Ringers Injection IV 1,000 mL 1,000 mL, Rate: 25 ml/hr, Infuse over: 40 hr, Route: IV, Total Volume: 1,000, Start date: 08/23/11 9:44:00, Duration: 30 day, Stop date: 09/22/11 9:43:00 IV No Longer Active [facility] 08/23/2011 [facility] Reglan 10 mg oral tablet 10 mg, 1 tab, PO, QID, PRN, 28 tab, nausea, Substitution Allowed, TAB PO Active [facility] 05/23/2011 [facility] Pepto-Bismol 262 mg/15 mL oral suspension 262 mg, 15 ml, PO, QID, PRN, 120 ml, for dyspepsia, Substitution Allowed, SUSP PO Active [facility] 05/23/2011 [facility] Zofran 4 mg, Route: IVP, Drug form: INJ, ONCE, Priority: STAT, Start date: 05/22/11 23:06:00, Stop date: 05/22/11 23:06:00 IVP No Longer Active [facility] 05/23/2011 [facility] morphine Sulfate 2 mg, Route: IVP, ONCE, Priority: STAT, Start date: 05/22/11 23:06:00, Stop date: 05/22/11 23:06:00 IVP No Longer Active [facility] 05/23/2011 [facility] Sodium Chloride 0.9% (Bolus) IV 500 mL 500 mL, Rate: 1,000 ml/hr, Infuse over: 0.5 hr, Route: IV, Total Volume: 500, Bolus dose, Priority: STAT, Start date: 05/22/11 21:18:00, Duration: 1 doses or times, Stop date: 05/22/11 21:47:00 IV No Longer Active [facility] 05/23/2011 [facility] Saline Flush 0.9% 5 ml, Route: IVP, Drug Form: INJ, PRN, PRN Line Flush, Start date: 05/22/11 21:18:00, Duration: 24 hr, Stop date: 05/23/11 21:17:00 IVP No Longer Active [facility] 05/23/2011 [facility] Cefuroxime Axetil (Cefuroxime) 250 Mg Tablet Every 12 Hours Active [facility] Losartan Potassium 100 Mg Tablet Daily Active [facility] Metoprolol Tartrate 25 Mg Tablet Twice A Day Active [facility] Allergies, Adverse Reactions, Alerts Substance Category Reaction Severity Reaction type Status Date Reported Comments Source Codeine STOMACH PAIN Intermediate Allergy to Substance Active 08/11/2018 [facility] codeine Assertion Drug allergy Active [facility] Immunizations No Data Provided for This Section Results Order Name Results Value Reference Range Date Interpretation Comments Source Urine color determination YELLOW YELLOW 08/11/2018 [facility] Urine clarity CLEAR CLEAR 08/11/2018 [facility] Specific gravity of Urine by Test strip 1.000 1.010 - 1.025 08/11/2018 [facility] Urine pH measurement by automated test strip 7 5 - 7 08/11/2018 [facility] Urine leukocyte esterase detection by dipstick 1+ NEGATIVE 08/11/2018 [facility] Urine nitrite detection NEGATIVE NEGATIVE 08/11/2018 [facility] Urine protein measurement by test strip (mass/volume) NEGATIVE NEGATIVE 08/11/2018 [facility] Urine glucose detection NEGATIVE NEGATIVE 08/11/2018 [facility] Urine ketones detection by automated test strip NEGATIVE NEGATIVE 08/11/2018 [facility] Urine urobilinogen measurement by test strip (mass/volume) 0.2 0.2 - 1 08/11/2018 [facility] Urine total bilirubin measurement (mass/volume) NEGATIVE NEGATIVE 08/11/2018 [facility] Urine erythrocytes detection NEGATIVE NEGATIVE 08/11/2018 [facility] Automated urine sediment leukocyte count by microscopy (number/high power field) 11-20 0 - 5 08/11/2018 [facility] Erythrocytes detection in urine sediment by light microscopy 0-5 0 - 5 08/11/2018 [facility] Bacteria detection in urine sediment by light microscopy FEW NONE 08/11/2018 [facility] Epithelial cells detection in urine sediment by light microscopy FEW NONE 08/11/2018 [facility] Blood leukocytes automated count (number/volume) 6.17 4.8 - 10.8 08/11/2018 [facility] Blood erythrocytes automated count (number/volume) 3.77 3.6 - 5.1 08/11/2018 [facility] Blood hemoglobin measurement (moles/volume) 12.6 12.0 - 16.0 08/11/2018 [facility] Automated blood hematocrit (volume fraction) 35.8 34.2 - 44.1 08/11/2018 [facility] Automated erythrocyte mean corpuscular volume 95.0 81 - 99 08/11/2018 [facility] Automated erythrocyte mean corpuscular hemoglobin (mass per erythrocyte) 33.4 28 - 32 08/11/2018 [facility] Automated erythrocyte mean corpuscular hemoglobin concentration measurement (mass/volume) 35.2 31 - 35 08/11/2018 [facility] RDW BldCo-Rto 12.4 11.7 - 14.4 08/11/2018 [facility] Automated blood platelet count (count/volume) 266 140 - 360 08/11/2018 [facility] Automated blood segmented neutrophil count as percentage of total leukocytes 77.1 38.7 - 80.0 08/11/2018 [facility] Automated blood lymphocyte count as percentage ot total leukocytes 14.1 18.0 - 39.1 08/11/2018 [facility] Automated blood monocyte count as percentage of total leukocytes 6.6 4.4 - 11.3 08/11/2018 [facility] Automated blood eosinophil count as percentage of total leukocytes 1.1 0.0 - 6.0 08/11/2018 [facility] Automated blood basophil count as percentage of total leukocytes 0.8 0.0 - 1.0 08/11/2018 [facility] IM GRANULOCYTES % 0.3 0.0 - 1.0 08/11/2018 [facility] Automated blood neutrophil count 4.8 2.1 - 6.9 08/11/2018 [facility] Blood lymphocytes count (number/volume) 0.9 1.0 - 3.2 08/11/2018 [facility] Blood monocytes automated count (number/volume) 0.4 0.2 - 0.8 08/11/2018 [facility] Automated blood eosinophil count 0.1 0.0 - 0.4 08/11/2018 [facility] Automated blood basophil count (count/volume) 0.1 0.0 - 0.1 08/11/2018 [facility] Absolute Immature Granulocyte (auto 0.02 0 - 0.1 08/11/2018 [facility] Serum or plasma sodium measurement (moles/volume) 139 136 - 145 08/11/2018 [facility] Serum or plasma potassium measurement (moles/volume) 4.0 3.5 - 5.1 08/11/2018 [facility] Serum or plasma chloride measurement (moles/volume) 102 98 - 107 08/11/2018 [facility] Serum or plasma carbon dioxide, total measurement (moles/volume) 26 22 - 29 08/11/2018 [facility] Serum or plasma anion gap 15.0 8 - 16 08/11/2018 [facility] Serum or plasma urea nitrogen measurement (mass/volume) 8 7 - 26 08/11/2018 [facility] Serum or plasma creatinine measurement (mass/volume) 0.75 0.57 - 1.11 08/11/2018 [facility] Serum or plasma urea nitrogen/creatinine mass ratio 11 6 - 25 08/11/2018 [facility] Estimated glomerular filtration rate (GFR) determination > 60 60 08/11/2018 [facility] Glucose measurement 100 74 - 118 08/11/2018 [facility] Serum or plasma calcium measurement (mass/volume) 9.3 8.4 - 10.2 08/11/2018 [facility] Serum or plasma total bilirubin measurement (mass/volume) 0.4 0.2 - 1.2 08/11/2018 [facility] Aspartate Amino Transf (AST/SGOT) 28 5 - 34 08/11/2018 [facility] Serum or plasma alanine aminotransferase measurement (enzymatic activity/volume) 22 0 - 55 08/11/2018 [facility] Serum or plasma protein measurement (mass/volume) 7.1 6.5 - 8.1 08/11/2018 [facility] Serum or plasma albumin measurement (mass/volume) 4.1 3.5 - 5.0 08/11/2018 [facility] Plasma globulin measurement (mass/volume) 3.0 2.3 - 3.5 08/11/2018 [facility] Serum or plasma albumin/globulin mass ratio 1.4 0.8 - 2.0 08/11/2018 [facility] Serum or plasma alkaline phosphatase measurement (enzymatic activity/volume) 69 40 - 150 08/11/2018 [facility] Capillary blood glucose measurement by glucometer (mass/volume) 145 70 - 120 07/21/2018 [facility] Prothrombin time (PT) in platelet poor plasma by coagulation assay 12.3 11.9 - 14.5 07/19/2018 [facility] INR in Platelet poor plasma by Coagulation assay 0.84 07/19/2018 [facility] Activated partial thromboplastin time (aPTT) in platelet poor plasma bycoagulation assay 29.9 23.8 - 35.5 07/19/2018 [facility] BNP Bld-mCnc 29.9 0 - 100 07/19/2018 [facility] Serum or plasma creatine kinase measurement (enzymatic activity/volume) 123 29 - 168 07/19/2018 [facility] Serum or plasma creatine kinase MB measurement (mass/volume) 1.40 0 - 5.0 07/19/2018 [facility] Troponin I measurement by highly sensitive enzyme immunoassay < 0.001 0 - 0.300 07/19/2018 [facility] Urine sodium measurement (moles/volume) 38 07/19/2018 [facility] Osmolality of Urine 136 . 07/19/2018 [facility] BEDSIDE GLUCOSE TESTING Comment1 Notify LOUISA/ 08/27/2011 NA [facility] BEDSIDE GLUCOSE TESTING Gluc POC Lifscn 108 65 - 110 08/27/2011 Normal <sup>1</sup>Interpretive Data: Upper Reportable Limit: 200 mg/dL. [facility] BEDSIDE GLUCOSE TESTING Gluc POC Lifscn 124 65 - 110 08/27/2011 HI <sup>2</sup>Interpretive Data: Upper Reportable Limit: 200 mg/dL. [facility] BEDSIDE GLUCOSE TESTING Comment1 Notify LOUISA/ 08/27/2011 [facility] BEDSIDE GLUCOSE TESTING Gluc POC Lifscn 117 65 - 110 08/26/2011 HI <sup>3</sup>Interpretive Data: Upper Reportable Limit: 200 mg/dL. [facility] BEDSIDE GLUCOSE TESTING Comment1 Notify LOUISA/ 08/26/2011 [facility] CHEMISTRY AGAP 12.3 10.0 - 20.0 08/25/2011 Normal [facility] CHEMISTRY Creatinine Lvl 0.6 0.5 - 1.4 08/25/2011 Normal [facility] CHEMISTRY Sodium Lvl 142 135 - 145 08/25/2011 Normal [facility] CHEMISTRY Potassium Lvl 4.3 3.5 - 5.1 08/25/2011 Normal [facility] CHEMISTRY Calcium Lvl 7.6 8.5 - 10.5 08/25/2011 LOW [facility] CHEMISTRY CO2 28 24 - 32 08/25/2011 Normal [facility] CHEMISTRY Chloride Lvl 106 95 - 109 08/25/2011 Normal [facility] CHEMISTRY BUN 5 7 - 22 08/25/2011 LOW [facility] CHEMISTRY Glucose Lvl 131 08/25/2011 NA <sup>4</sup>Interpretive Data: Reference Ranges : 0 - 7 days : 41 - 90 mg/dL 7 days - 150 yrs : 70 - 99 mg/dL (fasting), based on the clinical recommendations of the [place] [employer]. [facility] HEMATOLOGY Hgb 10.9 12.0 - 16.0 08/25/2011 LOW [facility] HEMATOLOGY RBC 3.48 4.20 - 5.40 08/25/2011 LOW [facility] HEMATOLOGY WBC 7.1 3.7 - 10.4 08/25/2011 Normal [facility] HEMATOLOGY RDW 13.9 11.5 - 14.5 08/25/2011 Normal [facility] HEMATOLOGY MCHC 33.5 32.0 - 36.0 08/25/2011 Normal [facility] HEMATOLOGY MCH 31.5 27.0 - 31.0 08/25/2011 HI [facility] HEMATOLOGY MCV 94.0 81.0 - 99.0 08/25/2011 Normal [facility] HEMATOLOGY Hct 32.7 36.0 - 48.0 08/25/2011 LOW [facility] HEMATOLOGY MPV 9.3 7.4 - 10.4 08/25/2011 Normal [facility] HEMATOLOGY Platelet 208 133 - 450 08/25/2011 Normal [facility] HEMATOLOGY Atypical Lymphs 0.0 <=0.0 08/25/2011 Normal [facility] HEMATOLOGY RBC Morph Normal (08/25/2011 04:07:00) 08/25/2011 Normal [facility] HEMATOLOGY Plt Morph Normal (08/25/2011 04:07:00) 08/25/2011 Normal [facility] HEMATOLOGY Tot Cell Ct 100 08/25/2011 NA [facility] HEMATOLOGY Monocytes 5.0 2.0 - 12.0 08/25/2011 Normal [facility] HEMATOLOGY Eosinophils 0.0 0.0 - 4.0 08/25/2011 Normal [facility] HEMATOLOGY Basophils 0.0 0.0 - 1.0 08/25/2011 Normal [facility] HEMATOLOGY Lymphocytes 26.0 20.0 - 40.0 08/25/2011 Normal [facility] HEMATOLOGY Segs-Bands # 4.9 1.5 - 8.1 08/25/2011 Normal [facility] HEMATOLOGY Monocytes # 0.4 0.0 - 0.8 08/25/2011 Normal [facility] HEMATOLOGY Bands 0.0 0.0 - 11.0 08/25/2011 Normal [facility] HEMATOLOGY Lymphocytes # 1.8 1.0 - 5.5 08/25/2011 Normal [facility] HEMATOLOGY Segs 69.0 45.0 - 75.0 08/25/2011 Normal [facility] CHEMISTRY AGAP 13.3 10.0 - 20.0 08/24/2011 Normal [facility] CHEMISTRY Glucose Lvl 133 08/24/2011 NA <sup>5</sup>Interpretive Data: Reference Ranges : 0 - 7 days : 41 - 90 mg/dL 7 days - 150 yrs : 70 - 99 mg/dL (fasting), based on the clinical recommendations of the [place] [employer]. [facility] CHEMISTRY CO2 26 24 - 32 08/24/2011 Normal [facility] CHEMISTRY Calcium Lvl 7.8 8.5 - 10.5 08/24/2011 LOW [facility] CHEMISTRY Potassium Lvl 4.3 3.5 - 5.1 08/24/2011 Normal [facility] CHEMISTRY Chloride Lvl 106 95 - 109 08/24/2011 Normal [facility] CHEMISTRY BUN 8 7 - 22 08/24/2011 Normal [facility] CHEMISTRY Sodium Lvl 141 135 - 145 08/24/2011 Normal [facility] CHEMISTRY Creatinine Lvl 0.7 0.5 - 1.4 08/24/2011 Normal [facility] HEMATOLOGY Segs-Bands # 7.4 1.5 - 8.1 08/24/2011 Normal [facility] HEMATOLOGY Monocytes # 0.7 0.0 - 0.8 08/24/2011 Normal [facility] HEMATOLOGY Lymphocytes # 0.7 1.0 - 5.5 08/24/2011 LOW [facility] HEMATOLOGY Basophils 0.0 0.0 - 1.0 08/24/2011 Normal [facility] HEMATOLOGY Eosinophils # 0.0 0.0 - 0.5 08/24/2011 Normal [facility] HEMATOLOGY Basophils # 0.0 0.0 - 0.2 08/24/2011 Normal [facility] HEMATOLOGY Segs 84.5 45.0 - 75.0 08/24/2011 HI [facility] HEMATOLOGY Monocytes 7.8 2.0 - 12.0 08/24/2011 Normal [facility] HEMATOLOGY Eosinophils 0.0 0.0 - 4.0 08/24/2011 Normal [facility] HEMATOLOGY Lymphocytes 7.7 20.0 - 40.0 08/24/2011 LOW [facility] HEMATOLOGY MCHC 34.5 32.0 - 36.0 08/24/2011 Normal [facility] HEMATOLOGY RDW 13.2 11.5 - 14.5 08/24/2011 Normal [facility] HEMATOLOGY WBC 8.7 3.7 - 10.4 08/24/2011 Normal [facility] HEMATOLOGY MCV 93.3 81.0 - 99.0 08/24/2011 Normal [facility] HEMATOLOGY MCH 32.2 27.0 - 31.0 08/24/2011 HI [facility] HEMATOLOGY Hct 33.1 36.0 - 48.0 08/24/2011 LOW [facility] HEMATOLOGY RBC 3.55 4.20 - 5.40 08/24/2011 LOW [facility] HEMATOLOGY Hgb 11.4 12.0 - 16.0 08/24/2011 LOW [facility] HEMATOLOGY Platelet 228 133 - 450 08/24/2011 Normal [facility] HEMATOLOGY MPV 9.2 7.4 - 10.4 08/24/2011 Normal [facility] CHEMISTRY ALT 24 0 - 65 08/21/2011 Normal [facility] CHEMISTRY Total Protein 7.5 6.4 - 8.4 08/21/2011 Normal [facility] CHEMISTRY Albumin Lvl 3.8 3.5 - 5.0 08/21/2011 Normal [facility] CHEMISTRY Alk Phos 95 39 - 136 08/21/2011 Normal [facility] CHEMISTRY Bili Total 0.3 0.2 - 1.3 08/21/2011 Normal [facility] CHEMISTRY AST 16 0 - 37 08/21/2011 Normal [facility] CHEMISTRY Calcium Lvl 8.4 8.5 - 10.5 08/21/2011 LOW [facility] CHEMISTRY CO2 27 24 - 32 08/21/2011 Normal [facility] CHEMISTRY Potassium Lvl 3.8 3.5 - 5.1 08/21/2011 Normal [facility] CHEMISTRY Chloride Lvl 104 95 - 109 08/21/2011 Normal [facility] CHEMISTRY BUN 13 7 - 22 08/21/2011 Normal [facility] CHEMISTRY Sodium Lvl 141 135 - 145 08/21/2011 Normal [facility] CHEMISTRY Creatinine Lvl 0.6 0.5 - 1.4 08/21/2011 Normal [facility] CHEMISTRY Glucose Lvl 117 08/21/2011 NA <sup>6</sup>Interpretive Data: Reference Ranges : 0 - 7 days : 41 - 90 mg/dL 7 days - 150 yrs : 70 - 99 mg/dL (fasting), based on the clinical recommendations of the [place] [employer]. [facility] CHEMISTRY Globulin 3.7 2.0 - 4.0 08/21/2011 Normal [facility] CHEMISTRY A/G Ratio 1.0 0.7 - 1.6 08/21/2011 Normal [facility] CHEMISTRY B/C Ratio 22 6 - 25 08/21/2011 Normal [facility] CHEMISTRY AGAP 13.8 10.0 - 20.0 08/21/2011 Normal [facility] HEMATOLOGY PTT 30.3 22.9 - 35.8 08/21/2011 Normal <sup>8</sup>Interpretive Data: Heparin Therapeutic Range: 57 - 92 Seconds [facility] HEMATOLOGY PT 11.8 12.0 - 14.7 08/21/2011 LOW [facility] HEMATOLOGY INR 0.86 0.85 - 1.17 08/21/2011 Normal <sup>7</sup>Interpretive Data: RECOMMENDED RANGES FOR PROTIME INR: 2.0-3.0 for most medical and surgical thromboembolic states. 2.5-3.5 for artificial heart valves and recurrent embolism. INR SHOULD BE USED ONLY FOR PATIENTS ON STABLE ANTICOAGULANT THERAPY. [facility] HEMATOLOGY MPV 9.3 7.4 - 10.4 08/21/2011 Normal [facility] HEMATOLOGY RDW 13.0 11.5 - 14.5 08/21/[address] [facility] Platelet 232 133 - 450 08/21/[address] [facility] Hct 36.6 36.0 - 48.0 08/21/[address] [facility] MCHC 34.6 32.0 - 36.0 08/21/2011 Normal [facility] HEMATOLOGY MCV 92.3 81.0 - 99.0 08/21/[address] [facility] Hgb 12.6 12.0 - 16.0 08/21/[address] [facility] MCH 31.9 27.0 - 31.0 08/21/2011 HI [facility] HEMATOLOGY RBC 3.96 4.20 - 5.40 08/21/2011 LOW [facility] HEMATOLOGY WBC 5.5 3.7 - 10.4 08/21/2011 Normal [facility] HEMATOLOGY Basophils # 0.0 0.0 - 0.2 08/21/2011 Normal [facility] HEMATOLOGY Lymphocytes # 1.0 1.0 - 5.5 08/21/2011 Normal [facility] HEMATOLOGY Eosinophils # 0.3 0.0 - 0.5 08/21/2011 Normal [facility] HEMATOLOGY Eosinophils 5.3 0.0 - 4.0 08/21/2011 HI [facility] HEMATOLOGY Segs-Bands # 3.7 1.5 - 8.1 08/21/2011 Normal [facility] HEMATOLOGY Monocytes # 0.4 0.0 - 0.8 08/21/2011 Normal [facility] HEMATOLOGY Basophils 0.9 0.0 - 1.0 08/21/2011 Normal [facility] HEMATOLOGY Monocytes 7.6 2.0 - 12.0 08/21/2011 Normal [facility] HEMATOLOGY Lymphocytes 18.7 20.0 - 40.0 08/21/2011 LOW [facility] HEMATOLOGY Segs 67.5 45.0 - 75.0 08/21/2011 Normal [facility] CHEMISTRY CK MB Index 0.7 0.0 - 2.5 05/23/2011 Normal [facility] CHEMISTRY CK MB 0.6 0.5 - 3.6 05/23/2011 Normal [facility] CHEMISTRY Total CK 90.0 12 - 191 05/23/2011 Normal [facility] CHEMISTRY Troponin-I <0.02 0.00 - 0.40 05/23/2011 Normal [facility] CHEMISTRY Lipase Lvl 88.0 73 - 393 05/23/2011 Normal [facility] CHEMISTRY A/G Ratio 1.0 0.7 - 1.6 05/23/2011 Normal [facility] CHEMISTRY AST 25.0 0 - 37 05/23/2011 Normal [facility] CHEMISTRY Bili Total 0.4 0.2 - 1.3 05/23/2011 Normal [facility] CHEMISTRY AGAP 8.9 10.0 - 20.0 05/23/2011 LOW [facility] CHEMISTRY B/C Ratio 18.0 6 - 25 05/23/2011 Normal [facility] CHEMISTRY Globulin 4.2 2.0 - 4.0 05/23/2011 HI [facility] CHEMISTRY Glucose Lvl 105.0 05/23/2011 NA <sup>1</sup>Interpretive Data: Reference Ranges : 0 - 7 days : 41 - 90 mg/dL 7 days - 150 yrs : 70 - 99 mg/dL (fasting), based on the clinical recommendations of the [place] [employer]. [facility] CHEMISTRY BUN 11.0 7 - 22 05/23/2011 Normal [facility] CHEMISTRY Creatinine Lvl 0.6 0.5 - 1.4 05/23/2011 Normal [facility] CHEMISTRY Chloride Lvl 103.0 95 - 109 05/23/2011 Normal [facility] CHEMISTRY CO2 32.0 24 - 32 05/23/2011 Normal [facility] CHEMISTRY Sodium Lvl 140.0 135 - 145 05/23/2011 Normal [facility] CHEMISTRY Potassium Lvl 3.9 3.5 - 5.1 05/23/2011 Normal [facility] CHEMISTRY Calcium Lvl 9.3 8.5 - 10.5 05/23/2011 Normal [facility] CHEMISTRY Total Protein 8.5 6.4 - 8.4 05/23/2011 HI [facility] CHEMISTRY Alk Phos 75.0 39 - 136 05/23/2011 Normal [facility] CHEMISTRY Albumin Lvl 4.3 3.5 - 5.0 05/23/2011 Normal [facility] CHEMISTRY ALT 31.0 0 - 65 05/23/2011 Normal [facility] HEMATOLOGY Monocytes # 0.5 0.0 - 0.8 05/23/2011 Normal [facility] HEMATOLOGY Eosinophils # 0.3 0.0 - 0.5 05/23/2011 Normal [facility] HEMATOLOGY Lymphocytes # 1.7 1.0 - 5.5 05/23/2011 Normal [facility] HEMATOLOGY Eosinophils 4.3 0.0 - 4.0 05/23/2011 HI [facility] HEMATOLOGY Segs-Bands # 4.4 1.5 - 8.1 05/23/2011 Normal [facility] HEMATOLOGY Basophils 0.9 0.0 - 1.0 05/23/2011 Normal [facility] HEMATOLOGY Monocytes 6.8 2.0 - 12.0 05/23/2011 Normal [facility] HEMATOLOGY Lymphocytes 24.8 20.0 - 40.0 05/23/2011 Normal [facility] HEMATOLOGY Segs 63.2 45.0 - 75.0 05/23/2011 Normal [facility] HEMATOLOGY Basophils # 0.1 0.0 - 0.2 05/23/2011 Normal [facility] HEMATOLOGY MPV 9.4 7.4 - 10.4 05/23/2011 Normal [facility] HEMATOLOGY Platelet 270.0 133 - 450 05/23/2011 Normal [facility] HEMATOLOGY RDW 13.2 11.5 - 14.5 05/23/2011 Normal [facility] HEMATOLOGY MCH 32.1 27.0 - 31.0 05/23/2011 [facility] HEMATOLOGY MCHC 34.5 32.0 - 36.0 05/23/2011 Normal [facility] HEMATOLOGY MCV 92.9 81.0 - 99.0 05/23/2011 Normal [facility] HEMATOLOGY Hgb 13.3 12.0 - 16.0 05/23/2011 Normal [facility] HEMATOLOGY Hct 38.4 36.0 - 48.0 05/23/2011 Normal [facility] HEMATOLOGY RBC 4.14 4.20 - 5.40 05/23/2011 LOW [facility] HEMATOLOGY WBC 6.9 3.7 - 10.4 05/23/2011 Normal [facility] URINALYSIS UA Nitrite Negative (05/22/2011 19:40:00) ?? >Negative 05/23/2011 Normal [facility] URINALYSIS UA Bacteria None Seen (05/22/2011 19:40:00) ?? >None Seen 05/23/2011 Normal [facility] URINALYSIS UA Leuk Est Trace *ABN* (05/22/2011 19:40:00) ?? >Negative 05/23/2011 ABN [facility] URINALYSIS UA Sq Epi None Seen (05/22/2011 19:40:00) ?? >Few 05/23/2011 Normal [facility] URINALYSIS UA WBC 3-5 /HPF (05/22/2011 19:40:00) ?? >None Seen 05/23/2011 Normal [facility] URINALYSIS UA Ketones Negative *NA* (05/22/2011 19:40:00) ?? >Negative 05/23/2011 NA [facility] URINALYSIS UA Bili Negative *NA* (05/22/2011 19:40:00) ?? >Negative 05/23/2011 NA [facility] URINALYSIS UA Blood Negative (05/22/2011 19:40:00) ?? >Negative 05/23/2011 Normal [facility] URINALYSIS UA Urobilinogen 0.2 0.1 - 1.0 05/23/2011 Normal [facility] URINALYSIS UA RBC None Seen (05/22/2011 19:40:00) ?? >0 - 2 05/23/2011 Normal [facility] URINALYSIS UA Glucose Negative (05/22/2011 19:40:00) ?? >Negative 05/23/2011 Normal [facility] URINALYSIS UA pH 6.0 5.0 - 8.0 05/23/2011 Normal [facility] URINALYSIS UA Protein Negative (05/22/2011 19:40:00) ?? >Negative 05/23/2011 Normal [facility] URINALYSIS UA Turbidity Clear (05/22/2011 19:40:00) ?? >Clear 05/23/2011 Normal [facility] URINALYSIS UA Spec Grav 1.01 <<=1.030 05/23/2011 Normal [facility] URINALYSIS UA Color Yellow *NA* (05/22/2011 19:40:00) ?? >Yellow 05/23/2011 NA [facility] Pathology Reports No Data Provided for This Section Diagnostic Reports No Data Provided for This Section Consultation Notes No Data Provided for This Section Discharge Summaries No Data Provided for This Section History and Physicals No Data Provided for This Section Vital Signs Vital Sign Value Date Comments Source Temperature Oral (F) 98.3 F 08/27/2011 [facility] Diastolic (mm Hg) 76 08/27/2011 [facility] Systolic (mm Hg) 119 08/27/2011 [facility] Respitory Rate 18 08/27/2011 [facility] Heart Rate 76 08/27/2011 [facility] Temperature Oral (F) 98.3 F 08/27/2011 [facility] Heart Rate 82 08/27/2011 [facility] Respitory Rate 18 08/27/2011 [facility] Systolic (mm Hg) 121 08/27/2011 [facility] Diastolic (mm Hg) 69 08/27/2011 [facility] Systolic (mm Hg) 116 08/27/2011 [facility] Respitory Rate 18 08/27/2011 [facility] Diastolic (mm Hg) 74 08/27/2011 [facility] Temperature Oral (F) 98.0 F 08/27/2011 [facility] Heart Rate 84 08/27/2011 [facility] Height 152.40 cm 08/25/2011 [facility] Weight 63.636 08/25/2011 [facility] Weight 63.636 08/21/2011 [facility] Height 154.94 cm 08/21/2011 [facility] Temperature Oral (F) 98.5 F 05/23/2011 [facility] Respitory Rate 18.0 05/23/2011 [facility] Diastolic (mm Hg) 86.0 05/23/2011 [facility] Heart Rate 78.0 05/23/2011 [facility] Systolic (mm Hg) 147.0 05/23/2011 [facility] Temperature Oral (F) 98.3 F 05/23/2011 [facility] Heart Rate 78.0 05/23/2011 [facility] Respitory Rate 18.0 05/23/2011 [facility] Systolic (mm Hg) 141.0 05/23/2011 [facility] Diastolic (mm Hg) 71.0 05/23/2011 [facility] Systolic (mm Hg) 196.0 05/23/2011 [facility] Respitory Rate 16.0 05/23/2011 [facility] Heart Rate 72.0 05/23/2011 [facility] Diastolic (mm Hg) 70.0 05/23/2011 [facility] Temperature Oral (F) 98.0 F 05/23/2011 [facility] Height 152.4 cm 05/23/2011 [facility] Weight 63.636 05/23/2011 [facility] Encounters Location Location Details Encounter Type Encounter Number Reason For Visit Attending Provider ADM Date DC Date Status Source [facility] Emergency [id number] ELISE OVALLES 05/22/2011 05/23/2011 Discharged [facility] [id number] ABNORMAL CHEST XRAY KIMBERLY HADAD 08/22/2011 Active [facility] [id number] INCISIONAL HERNIA [id number] KIMBERLY HADAD 08/23/2011 08/27/2011 Active [facility] [id number] JILLIAN RINCON MD 11/28/2017 [facility] Registered [facility] [id number] LIGIA WEST DO 07/16/2018 [facility] Departed Emergency Room [id number] ÁNGEL VERONICA MD 07/17/2018 07/18/2018 [facility] Discharged Inpatient (obs) [id number] HAYLEY PETERSEN MD 07/19/2018 07/21/2018 [facility] [id number] LIGIA WEST DO 08/05/2018 [facility] Departed Emergency Room [id number] DAVIDA ENAMORADO MD 08/11/2018 08/11/2018 [facility] Outpatient [id number] Ángel Soares 02/02/2019 02/03/2019 [facility] [id number] ROUTINE SCREENING KERON LYON Active [facility] Procedures Procedure Code Date Perfomer Comments Source CT of abdomen and pelvis without contrast [id number] 08/11/2018 CHRISTIAN [facility] Computed tomography of abdomen and pelvis with contrast [id number] 07/16/2018 [facility] Ultrasound, renal [id number] 11/28/2017 [facility] Assessment and Plan No Data Provided for This Section Plan of Care Plan of Care Date Source Discharge Date 08/11/18 7:37pm Disposition ADMITTED Condition at Discharge Stable Instructions/Education Provided Urinary Tract Infection - Women Forms Provided Work/School Excuse Prescriptions See Medication Section Referrals FANNIE FONTANA MD Address: [address] [place] [phone] Additional Instructions/Education 1. Please f/u with the urologist for your frequent UTIs 08/11/2018 [facility] Social History Social History Date Source Social History TypeResponse 02/03/2019 [facility] Smoking Status Start Date Stop Date Never Smoker 08/11/2018 [facility] Family History No Data Provided for This Section Advance Directives Order Name Results Value Date Source Advance Directives Advance Directives Directive Response Recorded Date/Time Does the patient have an advance directive? No 07/19/18 10:37pm Do you have a Directive to Physician? No 08/11/18 3:53pm Do you have a Medical Power of Manufacturing Project Engineer? No 08/11/18 3:53pm Do you have an out of hospital Do Not Resuscitate Order? No 08/11/18 3:53pm Do you have any special needs we should be aware of? No 08/11/18 3:53pm Do you have a support person here with you today? No 08/11/18 3:53pm Did patient receive Notice of Privacy Practices? Yes 08/11/18 3:53pm Did patient receive patient rights and responsibilities? Yes 08/11/18 3:53pm 08/11/2018 [facility] Functional Status No Data Provided for This Section
--- OUTSIDE RECORDS SUMMARY | 2019-02-10 16:27 | XMS REPORT | CCD ---
Author Author Auto Generated Organization [facility] Address Unknown Phone Unavailable Care Team Providers Care Auto Body Technician Name Role Phone Christo Hernadez RP Allergies, Adverse Reactions, Alerts Substance Reaction Status codeine Active Problem List Condition Effective Dates Status DM - Diabetes mellitus Active GERD - Gastro-esophageal reflux disease Active HTN - Hypertension Active Incisional hernia Active
--- OUTSIDE RECORDS SUMMARY | 2019-02-10 16:27 | XMS REPORT | Summary of Care ---
Author Author [facility] Organization [facility] Address Unknown Phone Unavailable Encounter HQ Encntr_rell(FIN) [id number] Date(s): 02/02/19 - 02/02/19 [facility] [address] [place] [address]- Discharge Disposition: Home or Self Care Attending Physician: Ángel Soares MD Referring Physician: Ángel Soares MD Vital Signs No data available for this section Problem List Condition Effective Dates Status Health Status Informant Arthritis(Confirmed) Active DM - Diabetes Active mellitus(Confirmed) GERD - Active Gastro-esophageal reflux disease(Confirmed) HTN - Active Hypertension(Confirm ed) Incisional Active hernia(Confirmed) Allergies, Adverse Reactions, Alerts Substance Reaction Severity Status codeine Active Medications No data available for this section Results No data available for this section Immunizations No data available for this section Procedures No data available for this section Social History Social History Type Response Assessment and Plan No data available for this section
--- OUTSIDE RECORDS SUMMARY | 2019-02-10 16:27 | XMS REPORT | CCD ---
Author Author Auto Generated Organization [facility] Address Unknown Phone Unavailable Care Team Providers Care Material Reclaimer Name Role Phone Christo Hernadez RP Allergies, Adverse Reactions, Alerts Substance Reaction Status codeine Active Problem List Condition Effective Dates Status Arthritis Active DM - Diabetes mellitus Active GERD - Gastro-esophageal reflux disease Active HTN - Hypertension Active Incisional hernia Active Medications Medication Instructions Start Date End Date Status NovoLog FlexPen 18 unit, 0.18 mL, Route: SUB-Q, 08/24/2011 08/27/2011 Discontinued Drug form: SOLN, Q6H, PRN Blood Glucose Results, Start date: 08/24/11 13:04:00, Duration: 30 day, Stop date: 09/23/11 13:03:00 NovoLog FlexPen 15 unit, 0.15 mL, Route: SUB-Q, 08/24/2011 08/27/2011 Discontinued Drug form: SOLN, Q6H, PRN Blood Glucose Results, Start date: 08/24/11 13:04:00, Duration: 30 day, Stop date: 09/23/11 13:03:00 NovoLog FlexPen 12 unit, 0.12 mL, Route: SUB-Q, 08/24/2011 08/27/2011 Discontinued Drug form: SOLN, Q6H, PRN Blood Glucose Results, Start date: 08/24/11 13:04:00, Duration: 30 day, Stop date: 09/23/11 13:03:00 NovoLog FlexPen 9 unit, 0.09 mL, Route: SUB-Q, Drug 08/24/2011 08/27/2011 Discontinued form: SOLN, Q6H, PRN Blood Glucose Results, Start date: 08/24/11 13:03:00, Duration: 30 day, Stop date: 09/23/11 13:02:00 NovoLog FlexPen 6 unit, 0.06 mL, Route: SUB-Q, Drug 08/24/2011 08/27/2011 Discontinued form: SOLN, Q6H, PRN Blood Glucose Results, Start date: 08/24/11 13:03:00, Duration: 30 day, Stop date: 09/23/11 13:02:00 Crestor 20 mg oral 20 mg, 1 tab, Bedtime, Substitution 08/24/2011 Suspended tablet Allowed NovoLog FlexPen 3 unit, 0.03 mL, Route: SUB-Q, Drug 08/24/2011 08/27/2011 Discontinued form: SOLN, Q6H, PRN Blood Glucose Results, Start date: 08/24/11 13:03:00, Duration: 30 day, Stop date: 09/23/11 13:02:00 metFORmin 500 mg 500 mg, 1 tab, PO, Daily, 08/24/2011 Suspended oral tablet Substitution Allowed, with breakfast with breakfast Crestor 20 mg, 2 tab, Route: PO, Drug form: 08/25/2011 08/27/2011 Discontinued TAB, Bedtime, Start date: 08/25/11 21:00:00, Duration: 30 day, Stop date: 09/23/11 21:00:00 Diovan 80 mg, 1 tab, Route: PO, Drug form: 08/25/2011 08/27/2011 Discontinued TAB, Daily, Start date: 08/25/11 9:00:00, Duration: 30 day, Stop date: 09/23/11 9:00:00 metFORmin 500 mg 500 mg, 1 tab, Route: PO, Drug 08/25/2011 08/27/2011 Discontinued oral tablet form: TAB, Breakfast, Start date: 08/25/11 8:00:00, Duration: 30 day, Stop date: 09/23/11 8:00:00 tramadol 50 mg oral 50 mg, 1 tab, Route: PO, Drug form: 08/25/2011 08/27/2011 Discontinued tablet TAB, Q4H, PRN Pain, Start date: 08/25/11 17:31:00, Duration: 30 day, Stop date: 09/24/11 17:30:00 Tylenol 325 mg, 1 tab, Route: PO, Drug 08/25/2011 08/27/2011 Discontinued form: TAB, Q4H, PRN Pain, Start date: 08/25/11 17:31:00, Duration: 30 day, Stop date: 09/24/11 17:30:00 Diovan 80 mg, PO, Daily, Substitution 08/23/2011 Suspended Allowed Unasyn 3 gm, 1 ea, Route: IVPB, ABXQ6H, 08/23/2011 08/24/2011 Completed Start date: 08/23/11 18:00:00, Duration: 24 hr, Stop date: 08/24/11 12:00:00 Ultracet oral tablet 1 tab, Route: PO, Drug Form: TAB, 08/25/2011 08/27/2011 Discontinued Q4H, PRN Pain, Start date: 08/25/11 11:05:00, Duration: 30 day, Stop date: 09/24/11 11:04:00 Milk of Magnesia 60 ml, Route: PO, Drug Form: SUSP, 08/25/2011 08/25/2011 Completed ONCE, Start date: 08/25/11 11:04:00, Stop date: 08/25/11 11:04:00 lidocaine 1% 0.5 mL, Route: SUB-Q, Drug Form: 08/23/2011 08/24/2011 Discontinued INJ, ONCALL, Start date: 08/23/11 10:00:00, Duration: 1 doses or times Lactated Ringers 1,000 mL, Rate: 25 ml/hr, Infuse 08/23/2011 08/23/2011 Discontinued Injection IV 1,000 over: 40 hr, Route: IV, Total mL Volume: 1,000, Start date: 08/23/11 9:44:00, Duration: 30 day, Stop date: 09/22/11 9:43:00 acetaminophen-hydroc 1 tab, Route: PO, Drug Form: TAB, 08/24/2011 08/25/2011 Deleted odone 325 mg-5 mg Q4H, PRN Pain, Start date: 08/24/11 oral tablet 13:06:00, Duration: 30 day, Stop date: 09/23/11 13:05:00 Restoril 15 mg, 1 cap, Route: PO, Drug form: 08/26/2011 08/27/2011 Discontinued CAP, Bedtime, PRN Sleep, Start date: 08/26/11 12:04:00, Duration: 30 day, Stop date: 09/25/11 12:03:00 Dilaudid 1.5 mg, 0.75 mL, Route: IVP, Drug 08/23/2011 08/24/2011 Discontinued form: INJ, Q3H, PRN Pain, Start date: 08/23/11 17:06:00, Duration: 30 day, Stop date: 09/22/11 17:05:00 Protonix 40 mg, Route: IVP, Drug form: INJ, 08/23/2011 08/27/2011 Discontinued Before Dinner, Start date: 08/23/11 18:00:00, Duration: 30 day, Stop date: 09/22/11 16:30:00 Dilaudid 0.5 mg, 0.25 mL, Route: IVP, Drug 08/24/2011 08/27/2011 Discontinued form: INJ, Q3H, PRN Severe Pain, Start date: 08/24/11 13:06:00, Duration: 30 day, Stop date: 09/23/11 13:05:00 No Lovenox No Lovenox, 1, Drug form: MISC, 08/23/2011 08/27/2011 Discontinued Route: MISC, Continuous, 08/23/11 17:30:00, Duration: 30 day, Stop date: 09/22/11 18:29:00 Dextrose 5% with 1,000 mL, Rate: 120 ml/hr, Infuse 08/23/2011 08/26/2011 Discontinued 0.45% NaCl IV 1,000 over: 8.3 hr, Route: IV, Total mL Volume: 1,000, Start date: 08/23/11 17:04:00, Duration: 30 day, Stop date: 09/22/11 17:03:00 glucagon 1 mg, Route: IM, Drug form: 08/24/2011 08/27/2011 Discontinued PDR/INJ, PRN, PRN Blood Glucose Results, Start date: 08/24/11 13:04:00, Duration: 30 day, Stop date: 09/23/11 14:03:00 Dextrose 50% in 50 mL, Route: IVP, PRN, Blood 08/24/2011 08/27/2011 Discontinued Water IV Glucose Results, Start date: 08/24/11 13:04:00, Duration: 30 day, Stop date: 09/23/11 14:03:00 Vital Signs Most recent to oldest [Reference Range]: 1 2 3 Height 152.40 cm (08/24/2011 19:24:00) 154.94 cm (08/21/2011 11:08:00) Temperature Oral [96.4-99.1 DegF] 98.3 DegF (08/27/2011 12:00:00) 98.3 DegF (08/27/2011 08:00:00) 98.0 DegF (08/27/2011 04:00:00) Systolic Blood Pressure [90-140 mmHg] 119 mmHg (08/27/2011 12:00:00) 121 mmHg (08/27/2011 08:00:00) 116 mmHg (08/27/2011 04:00:00) Diastolic Blood Pressure [60-90 mmHg] 76 mmHg (08/27/2011 12:00:00) 69 mmHg (08/27/2011 08:00:00) 74 mmHg (08/27/2011 04:00:00) Respiratory Rate [14-20 BRMIN] 18 BRMIN (08/27/2011 12:00:00) 18 BRMIN (08/27/2011 08:00:00) 18 BRMIN (08/27/2011 04:00:00) Peripheral Pulse Rate [60-100 bpm] 76 bpm (08/27/2011 12:00:00) 82 bpm (08/27/2011 08:00:00) 84 bpm (08/27/2011 04:00:00) Weight 63.636 kg (08/24/2011 19:24:00) 63.636 kg (08/21/2011 11:08:00) Results BEDSIDE GLUCOSE TESTING Most recent to oldest [Reference Range]: 1 2 3 Gluc POC Lif[place]n [65-110 mg/dL] 108 mg/dL 1 (08/27/2011 10:41:00) 124 mg/dL 2 *HI* (08/27/2011 07:05:00) 117 mg/dL 3 *HI* (08/26/2011 15:21:00) Comment1 Notify RN/MD *NA* (08/27/2011 10:41:00) Notify RN/MD *NA* (08/27/2011 07:05:00) Notify RN/MD *NA* (08/26/2011 15:21:00) 1Interpretive Data: Upper Reportable Limit: 200 mg/dL. 2Interpretive Data: Upper Reportable Limit: 200 mg/dL. 3Interpretive Data: Upper Reportable Limit: 200 mg/dL. CHEMISTRY Most recent to oldest [Reference Range]: 1 2 3 Sodium Lvl [135-145 mEq/L] 142 mEq/L (08/25/2011 04:07:00) 141 mEq/L (08/24/2011 04:20:00) 141 mEq/L (08/21/2011 11:20:00) Potassium Lvl [3.5-5.1 mEq/L] 4.3 mEq/L (08/25/2011 04:07:00) 4.3 mEq/L (08/24/2011 04:20:00) 3.8 mEq/L (08/21/2011 11:20:00) Chloride Lvl [95-109 mEq/L] 106 mEq/L (08/25/2011 04:07:00) 106 mEq/L (08/24/2011 04:20:00) 104 mEq/L (08/21/2011 11:20:00) CO2 [24-32 mEq/L] 28 mEq/L (08/25/2011 04:07:00) 26 mEq/L (08/24/2011 04:20:00) 27 mEq/L (08/21/2011 11:20:00) AGAP [10.0-20.0 mEq/L] 12.3 mEq/L (08/25/2011 04:07:00) 13.3 mEq/L (08/24/2011 04:20:00) 13.8 mEq/L (08/21/2011 11:20:00) Creatinine Lvl [0.5-1.4 mg/dL] 0.6 mg/dL (08/25/2011 04:07:00) 0.7 mg/dL (08/24/2011 04:20:00) 0.6 mg/dL (08/21/2011 11:20:00) BUN [7-22 mg/dL] 5 mg/dL *LOW* (08/25/2011 04:07:00) 8 mg/dL (08/24/2011 04:20:00) 13 mg/dL (08/21/2011 11:20:00) B/C Ratio [6-25] 22 (08/21/2011 11:20:00) Glucose Lvl 131 mg/dL 4 *NA* (08/25/2011 04:07:00) 133 mg/dL 5 *NA* (08/24/2011 04:20:00) 117 mg/dL 6 *NA* (08/21/2011 11:20:00) Total Protein [6.4-8.4 g/dL] 7.5 g/dL (08/21/2011 11:20:00) Albumin Lvl [3.5-5.0 g/dL] 3.8 g/dL (08/21/2011 11:20:00) Globulin [2.0-4.0 g/dL] 3.7 g/dL (08/21/2011 11:20:00) A/G Ratio [0.7-1.6] 1.0 (08/21/2011 11:20:00) Calcium Lvl [8.5-10.5 mg/dL] 7.6 mg/dL *LOW* (08/25/2011 04:07:00) 7.8 mg/dL *LOW* (08/24/2011 04:20:00) 8.4 mg/dL *LOW* (08/21/2011 11:20:00) ALT [0-65 U/L] 24 U/L (08/21/2011 11:20:00) AST [0-37 U/L] 16 U/L (08/21/2011 11:20:00) Alk Phos [39-136 U/L] 95 U/L (08/21/2011 11:20:00) Bili Total [0.2-1.3 mg/dL] 0.3 mg/dL (08/21/2011 11:20:00) 4Interpretive Data: Reference Ranges : 0 - 7 days : 41 - 90 mg/dL7 days - 150 yrs : 70 - 99 mg/dL (fasting), based on the clinical recommendations of the [place] [employer]. 5Interpretive Data: Reference Ranges : 0 - 7 days : 41 - 90 mg/dL7 days - 150 yrs : 70 - 99 mg/dL (fasting), based on the clinical recommendations of the [place] [employer]. 6Interpretive Data: Reference Ranges : 0 - 7 days : 41 - 90 mg/dL7 days - 150 yrs : 70 - 99 mg/dL (fasting), based on the clinical recommendations of the [place] [employer]. HEMATOLOGY Most recent to oldest [Reference Range]: 1 2 3 WBC [3.7-10.4 K/CMM] 7.1 K/CMM (08/25/2011 04:07:00) 8.7 K/CMM (08/24/2011 04:20:00) 5.5 K/CMM (08/21/2011 11:20:00) RBC [4.20-5.40 M/CMM] 3.48 M/CMM *LOW* (08/25/2011 04:07:00) 3.55 M/CMM *LOW* (08/24/2011 04:20:00) 3.96 M/CMM *LOW* (08/21/2011 11:20:00) Hgb [12.0-16.0 g/dL] 10.9 g/dL *LOW* (08/25/2011 04:07:00) 11.4 g/dL *LOW* (08/24/2011 04:20:00) 12.6 g/dL (08/21/2011 11:20:00) Hct [36.0-48.0 %] 32.7 % *LOW* (08/25/2011 04:07:00) 33.1 % *LOW* (08/24/2011 04:20:00) 36.6 % (08/21/2011 11:20:00) MCV [81.0-99.0 fL] 94.0 fL (08/25/2011 04:07:00) 93.3 fL (08/24/2011 04:20:00) 92.3 fL (08/21/2011 11:20:00) MCH [27.0-31.0 pg] 31.5 pg *HI* (08/25/2011 04:07:00) 32.2 pg *HI* (08/24/2011 04:20:00) 31.9 pg *HI* (08/21/2011 11:20:00) MCHC [32.0-36.0 g/dL] 33.5 g/dL (08/25/2011 04:07:00) 34.5 g/dL (08/24/2011 04:20:00) 34.6 g/dL (08/21/2011 11:20:00) RDW [11.5-14.5 %] 13.9 % (08/25/2011 04:07:00) 13.2 % (08/24/2011 04:20:00) 13.0 % (08/21/2011 11:20:00) Platelet [133-450 K/CMM] 208 K/CMM (08/25/2011 04:07:00) 228 K/CMM (08/24/2011 04:20:00) 232 K/CMM (08/21/2011 11:20:00) MPV [7.4-10.4 fL] 9.3 fL (08/25/2011 04:07:00) 9.2 fL (08/24/2011 04:20:00) 9.3 fL (08/21/2011 11:20:00) Segs [45.0-75.0 %] 69.0 % (08/25/2011 04:07:00) 84.5 % *HI* (08/24/2011 04:20:00) 67.5 % (08/21/2011 11:20:00) Bands [0.0-11.0 %] 0.0 % (08/25/2011 04:07:00) Lymphocytes [20.0-40.0 %] 26.0 % (08/25/2011 04:07:00) 7.7 % *LOW* (08/24/2011 04:20:00) 18.7 % *LOW* (08/21/2011 11:20:00) Atypical Lymphs [<=0.0 %] 0.0 % (08/25/2011 04:07:00) Monocytes [2.0-12.0 %] 5.0 % (08/25/2011 04:07:00) 7.8 % (08/24/2011 04:20:00) 7.6 % (08/21/2011 11:20:00) Eosinophils [0.0-4.0 %] 0.0 % (08/25/2011 04:07:00) 0.0 % (08/24/2011 04:20:00) 5.3 % *HI* (08/21/2011 11:20:00) Basophils [0.0-1.0 %] 0.0 % (08/25/2011 04:07:00) 0.0 % (08/24/2011 04:20:00) 0.9 % (08/21/2011 11:20:00) Segs-Bands # [1.5-8.1 K/CMM] 4.9 K/CMM (08/25/2011 04:07:00) 7.4 K/CMM (08/24/2011 04:20:00) 3.7 K/CMM (08/21/2011 11:20:00) Lymphocytes # [1.0-5.5 K/CMM] 1.8 K/CMM (08/25/2011 04:07:00) 0.7 K/CMM *LOW* (08/24/2011 04:20:00) 1.0 K/CMM (08/21/2011 11:20:00) Monocytes # [0.0-0.8 K/CMM] 0.4 K/CMM (08/25/2011 04:07:00) 0.7 K/CMM (08/24/2011 04:20:00) 0.4 K/CMM (08/21/2011 11:20:00) Eosinophils # [0.0-0.5 K/CMM] 0.0 K/CMM (08/24/2011 04:20:00) 0.3 K/CMM (08/21/2011 11:20:00) Basophils # [0.0-0.2 K/CMM] 0.0 K/CMM (08/24/2011 04:20:00) 0.0 K/CMM (08/21/2011 11:20:00) Tot Cell Ct 100 *NA* (08/25/2011 04:07:00) RBC Morph Normal (08/25/2011 04:07:00) Plt Morph Normal (08/25/2011 04:07:00) PT [12.0-14.7 seconds] 11.8 seconds *LOW* (08/21/2011 11:20:00) INR [0.85-1.17] 0.86 7 (08/21/2011 11:20:00) PTT [22.9-35.8 seconds] 30.3 seconds 8 (08/21/2011 11:20:00) 7Interpretive Data: RECOMMENDED RANGES FOR PROTIME INR: 2.0-3.0 for most medical and surgical thromboembolic states. 2.5-3.5 for artificial heart valves and recurrent embolism.INR SHOULD BE USED ONLY FOR PATIENTS ON STABLE ANTICOAGULANT THERAPY. 8Interpretive Data: Heparin Therapeutic Range: 57 - 92 Seconds
--- NOTE | 2019-02-10 17:21 | NUR ---
PATIENT TO ROOM 9
[2019-02-10 18:07] LABS: CLARITY,URINE CLEAR (CLEAR); COLOR,URINE YELLOW (YELLOW); LEUKOCYTE ESTERASE ,URINE TRACE (NEGATIVE); NITRITE,URINE NEGATIVE (NEGATIVE); URINE UROBILINOGEN 0.2 mg/dL (0.2 - 1)
[2019-02-10 18:08] LABS: BILIRUBIN,URINE NEGATIVE (NEGATIVE); KETONES,URINE NEGATIVE (NEGATIVE); PROTEIN,URINE DIPSTICK NEGATIVE (NEGATIVE)
[2019-02-10 18:32] LABS: WBC,URINE (MAN) 0-5 /HPF (0-5)
[2019-02-10 18:33] LABS: BACTERIA,URINE RARE /HPF; RBC,URINE 0-5 /HPF (0-5)
[2019-02-10 18:43] LABS: BASOPHILS % 0.5 % (0.0-1.0); EOSINOPHILS # (AUTO) 0.1 (0.0-0.4); EOSINOPHILS % 1.3 % (0.0-6.0); HEMATOCRIT 35.3 % (34.2-44.1); HEMOGLOBIN 11.6 g/dL (12.0-16.0); LYMPHOCYTES # (AUTO) 0.8 (1.0-3.2); LYMPHOCYTES % 12.9 % (18.0-39.1); MEAN CORPUSCULAR HEMOGLOBIN 31.5 pg (28-32); MEAN CORPUSCULAR HGB CONC 32.9 g/dL (31-35); MEAN CORPUSCULAR VOLUME 95.9 fL (81-99); MONOCYTES # (AUTO) 0.5 (0.2-0.8); MONOCYTES % 7.8 % (4.4-11.3); NEUTROPHILS # (AUTO) 4.9 (2.1-6.9); NEUTROPHILS % 77.2 % (38.7-80.0); PLATELET COUNT 265 x10e3/uL (140-360); RED BLOOD COUNT 3.68 x10e6/uL (3.6-5.1); RED CELL DISTRIBUTION WIDTH 12.2 % (11.7-14.4)
[2019-02-10 18:46] LABS: INR 0.85; PROTHROMBIN TIME 12.1 seconds (11.9-14.5)
[2019-02-10 18:47] LABS: PARTIAL THROMBOPLASTIN TIME 29.7 seconds (23.8-35.5)
[2019-02-10 18:55] LABS: ALANINE AMINOTRANSFERASE 12 IU/L (0-55); ALBUMIN 3.5 g/dL (3.5-5.0); ALKALINE PHOSPHATASE 85 IU/L (40-150); ANION GAP 15.1 mmol/L (8-16); BLOOD UREA NITROGEN 11 mg/dL (7-26); BUN/CREATININE RATIO 15 (6-25); CALCIUM 9.1 mg/dL (8.4-10.2); CARBON DIOXIDE 24 mmol/L (22-29); CHLORIDE 102 mmol/L (98-107); CREATINE KINASE 37 IU/L (29-168); CREATININE, SERUM 0.75 mg/dL (0.57-1.11); EST GLOMERULAR FILTRATION RATE > 60 ML/MIN (60-); GLUCOSE 103 mg/dL (74-118); POTASSIUM 4.1 mmol/L (3.5-5.1); SODIUM 137 mmol/L (136-145)
[2019-02-10] MEDS ORDERED: D3 PO (18:59)
[2019-02-10] MEDS ORDERED: TRADJENTA5 MG PO (18:59)
[2019-02-10] MEDS ORDERED: B-121000 MCG PO (18:59)
[2019-02-10 19:15] LABS: THYROID STIMULATING HORMONE 1.311 uIU/mL (0.350-4.940)
[2019-02-10 20:13] VITALS: BP 153/77
--- NOTE | 2019-02-10 20:17 | Diagnostic Imaging Report ---
Examination: Single AP view of the chest. COMPARISON: Portable chest 07/19/2018 INDICATION: Doesn't feel well, fatigue, bodyaches IMPRESSION: 1. Lines and Tubes: None 2. Lungs are grossly clear. No consolidation or effusion. 3. Cardiomediastinal silhouette is normal. Pulmonary vasculature is normal. 4. No acute bony abnormalities. Signed by: Dr. Albert Her M.D. on 02/10/2019 8:14 PM
== END 2019-02-10 20:20 | disposition home or self-care (01) ==
LOC: ER 16:23
DX: R53.83 Other fatigue (principal); R53.1 Weakness; I10 Essential (primary) hypertension; E11.9 Type 2 diabetes mellitus without complications; K21.9 Gastro-esophageal reflux disease without esophagitis
CPT/HCPCS: 36415; 71045; 80053; 81001; 82550; 82553; 84443; 84484; 85025; 85610; 85730; 87086; 93005; 99283

== ENCOUNTER → 2019-03-21 | Outpatient (CLI) | payer MEDICARE, OTHER ==
[~2019-03-21] MED LIST changes: +B-121000 MCG PO; +D3 PO; +TRADJENTA5 MG PO
--- NOTE | 2019-03-21 14:27 | Diagnostic Imaging Report ---
Exam: Cervical spine series Clinical history: Neck pain Findings: There is no evidence of acute fracture or malalignment. Mild degenerative changes are noted at C5-6 and C7-T1 levels with loss in disc height. The prevertebral soft tissue is unremarkable. Impression: 1. No radiographic evidence of acute osseous injury. Degenerative disc disease as described. Signed by: Dr. Darien Quiñones MD on 03/21/2019 2:24 PM
--- NOTE | 2019-03-21 14:30 | Diagnostic Imaging Report ---
Exam: Lumbar spine series Clinical history: Back pain Findings: There is no evidence of acute fracture or malalignment. Degenerative disc disease is noted at T11-T12 and L5-S1 levels with loss in disc heights and endplate sclerosis. Atherosclerotic calcification of the aorta is also noted. Impression: 1. No radiographic evidence of acute osseous injury. Degenerative disc disease as described. Signed by: Dr. Darien Quiñones MD on 03/21/2019 2:27 PM
--- NOTE | 2019-03-21 14:34 | Diagnostic Imaging Report ---
Exam: Bilateral knee 3 views Clinical history: Knee pain Findings: There is no evidence of acute fracture or malalignment. Mild narrowing of the left patellofemoral space is noted. In addition, chondrocalcinosis of bilateral knee joints are noted likely degenerative in nature. The soft tissue is unremarkable. Impression: 1. No radiographic evidence of acute osseous injury. Degenerative changes as noted. Signed by: Dr. Darien Quiñones MD on 03/21/2019 2:31 PM
== END ==
LOC: RAD 12:22
DX: M54.2 Cervicalgia (principal); M54.5 Low back pain; M25.562 Pain in left knee; M25.561 Pain in right knee
CPT/HCPCS: 72040; 72100

== ENCOUNTER 2019-09-28 04:45 | Inpatient (IN) | payer MEDICARE, OTHER ==
[~2019-09-28] VITALS: Ht 149.9 cm; Wt 58.5 kg
[2019-09-28] VITALS (7 sets, daily range): BP systolic 122–172; BP diastolic 73–90
[2019-09-28 05:31] LABS: BASOPHILS % 0.3 % (0.0-1.0); EOSINOPHILS # (AUTO) 0.1 (0.0-0.4); EOSINOPHILS % 0.5 % (0.0-6.0); HEMATOCRIT 41.6 % (34.2-44.1); HEMOGLOBIN 13.9 g/dL (12.0-16.0); LYMPHOCYTES # (AUTO) 1.2 (1.0-3.2); LYMPHOCYTES % 8.3 % (18.0-39.1); MEAN CORPUSCULAR HEMOGLOBIN 31.1 pg (28-32); MEAN CORPUSCULAR HGB CONC 33.4 g/dL (31-35); MEAN CORPUSCULAR VOLUME 93.1 fL (81-99); MONOCYTES # (AUTO) 0.6 (0.2-0.8); MONOCYTES % 4.5 % (4.4-11.3); PLATELET COUNT 295 x10e3/uL (140-360); RED BLOOD COUNT 4.47 x10e6/uL (3.6-5.1); RED CELL DISTRIBUTION WIDTH 13.2 % (11.7-14.4)
[2019-09-28 05:49] LABS: ALANINE AMINOTRANSFERASE 22 IU/L (0-55); ALBUMIN 4.3 g/dL (3.5-5.0); ALBUMIN/GLOBULIN RATIO 1.1 (0.8-2.0); ALKALINE PHOSPHATASE 79 IU/L (40-150); ANION GAP 14.3 mmol/L (8-16); BLOOD UREA NITROGEN 11 mg/dL (7-26); BUN/CREATININE RATIO 13 (6-25); CARBON DIOXIDE 25 mmol/L (22-29); CHLORIDE 100 mmol/L (98-107); CREATINE KINASE 39 IU/L (29-168); CREATININE, SERUM 0.84 mg/dL (0.57-1.11); EST GLOMERULAR FILTRATION RATE > 60 ML/MIN (60-); GLUCOSE 153 mg/dL (74-118); LIPASE 7 U/L (8-78); POTASSIUM 4.3 mmol/L (3.5-5.1); SODIUM 135 mmol/L (136-145)
[2019-09-28] MEDS ORDERED: IOPAMIDOL 370 MG/ML 200 ML INFUS..BTL INJ ONE (06:10)
[2019-09-28] MEDS ORDERED: SODIUM CHLORIDE 0.9% 50ML 50 ML ONE (06:10)
[2019-09-28 06:37] LABS: CLARITY,URINE CLEAR (CLEAR); COLOR,URINE YELLOW (YELLOW)
[2019-09-28 06:38] LABS: KETONES,URINE 1+ (NEGATIVE); LEUKOCYTE ESTERASE ,URINE SMALL (NEGATIVE); NITRITE,URINE NEGATIVE (NEGATIVE); PROTEIN,URINE DIPSTICK 1+ (NEGATIVE); URINE UROBILINOGEN 0.2 mg/dL (0.2 - 1)
[2019-09-28 06:39] LABS: BACTERIA,URINE RARE /HPF; BILIRUBIN,URINE SMALL (NEGATIVE); EPITHELIAL CELLS,URINE FEW /LPF
--- NOTE | 2019-09-28 07:04 | Diagnostic Imaging Report ---
EXAM: CT Abdomen and Pelvis WITH contrast INDICATION: Epigastric pain. COMPARISON: 04/28/19. TECHNIQUE: Abdomen and pelvis were scanned utilizing a multidetector helical scanner from the lung base to the pubic symphysis after administration of IV contrast. Coronal and sagittal reformations were obtained. Routine protocol was performed. Scan was performed when during portal venous phase. IV CONTRAST: 100 cc Isovue 300 ORAL CONTRAST: Water RADIATION DOSE: Total DLP: 259.58 mGy*cm Estimated effective dose: (DLP x 0.015 x size factor) mSv COMPLICATIONS: None FINDINGS: LINES and TUBES: None. LOWER THORAX: Unremarkable HEPATOBILIARY: Cholecystectomy. GALLBLADDER: No radio-opaque stones or sludge. No wall thickening. SPLEEN: No splenomegaly. PANCREAS: No focal masses or ductal dilatation. ADRENALS: No adrenal nodules KIDNEYS/URETERS: Kidneys enhance symmetrically. No hydronephrosis. Small low-attenuation lesions in the left kidney are too small to be characterize, however, most suggestive of cysts. 1.4 cm cyst in the lower pole of the left kidney. No stones. GI TRACT: Mild dilatation of multiple small bowel loops with a decompressed, narrow small bowel loop in the anterior pelvis on image 45 series 2. There is however mild distention of the small bowel loops proximal and distal to it. The compressed small bowel loop may represent stricture, however, evaluation is limited due to the lack of contrast. There is fluid attenuation throughout the colon. Appendix is nonvisualized. PELVIC ORGANS/BLADDER: The uterus is absent. LYMPH NODES: No lymphadenopathy. VESSELS: There is moderate atherosclerotic disease in the aorta and major arterial branches. PERITONEUM / RETROPERITONEUM: No free air or fluid. BONES: There are degenerative changes in the lumbar spine. SOFT TISSUES: Unremarkable. IMPRESSION: 1. Findings concerning for small bowel obstruction, possibly partial with transitional point in the anterior pelvis. Recommend surgical consultation. Signed by: Dr. Bettina Clements M.D. on 09/28/2019 7:01 AM
--- NOTE | 2019-09-28 07:07 | Diagnostic Imaging Report ---
EXAMINATION: CHEST 2 VIEWS INDICATION: Pain. COMPARISON: 07/19/2018. FINDINGS: TUBES and LINES: None. LUNGS: Lungs are well inflated. Mild bilateral perihilar peribronchial thickening. There is no evidence of pneumonia or pulmonary edema. PLEURA: No pleural effusion or pneumothorax. HEART AND MEDIASTINUM: The cardiomediastinal silhouette is unremarkable. BONES AND SOFT TISSUES: No acute osseous lesion. Soft tissues are unremarkable. UPPER ABDOMEN: No free air under the diaphragm. IMPRESSION: No acute thoracic abnormality. Signed by: Dr. Bettina Clements M.D. on 09/28/2019 7:04 AM
[2019-09-28] MEDS ORDERED: BENZOCAINE/TETRACAINE/BUTAMBEN AERO SPRAY 56 GM CAN TOP ONE (08:15)
[2019-09-28] MEDS ORDERED: ONDANSETRON HCL INJ 2MG/ML 2ML 2 MG/ML VIAL IV PRN ×2 (08:15→13:00)
[2019-09-28] MEDS: PIPER-TAZ 3.375 GM / NS 50ML IV SCH ×2 (09:00→20:31)
[2019-09-28] MEDS: SODIUM CHLORIDE 0.9% 1000ML 1,000 ML IV SCH ×2 (09:00→20:31)
--- NOTE | 2019-09-28 09:55 | NUR ---
patient received from ER via stretcher. see admit assess. left nare NGT to low int sx. patient very anxious. c/o loose stools. consult to Dr Dequan fuller.
--- NOTE | 2019-09-28 10:17 | Diagnostic Imaging Report ---
Exam: Abdominal film Clinical History: Enteric tube placement Comparison: None. DISCUSSION: Enteric tube with the distal tip left of midline overlying the left upper quadrant. Side port above the GE junction. IMPRESSION: Enteric tube in satisfactory position overlying the left upper quadrant Signed by: Dr. Gregor Arrington M.D. on 09/28/2019 10:13 AM
--- NOTE | 2019-09-28 12:08 | NUR ---
patient threatening to go AMA. convinced her to wait for the doctor.
[2019-09-28] MEDS ORDERED: HYDRALAZINE HCL 20 MG/ML VIAL IV PRN (12:45)
--- NOTE | 2019-09-28 13:21 | Consultation ---
DATE OF CONSULTATION: 09/28/2019 REASON FOR CONSULTATION: Small bowel obstruction. HISTORY OF PRESENT ILLNESS: The patient is an 84-year-old female, who developed abdominal pain yesterday, sort of mid abdominal, described as crampy, associated with nausea. Reason for which she came to the emergency room. In the emergency room, she had a CT scan of the abdomen that revealed a partial small bowel obstruction. Of note, this is the fact that the patient now complains of diarrhea following the performance of the CT scan. However, according to the report, this was given with water only. PAST MEDICAL HISTORY: Significant for hypertension, diabetes, and arthritis. She has a history of dyspeptic symptoms in the past. PAST SURGICAL HISTORY: She has had multiple abdominal surgeries, which include three ventral hernia repairs, open cholecystectomy, open appendectomy, and hysterectomy. SOCIAL HISTORY: The patient does not drink. Does not smoke. MEDICATIONS: She does not know the name of the medicines which she is currently taking, but she says she takes medicines for diabetes, hypertension, and arthritis. REVIEW OF SYSTEMS: Significant for what has been stated. PHYSICAL EXAMINATION: GENERAL: Reveals an 84-year-old female, awake and alert. She is in no acute distress. HEAD, EYES, EARS, NOSE, AND THROAT: Reveals no acute process. There is an NG tube, which is draining clear fluid. LUNGS: Clear. HEART: Reveals regular sinus rhythm. ABDOMEN: Soft without any peritoneal signs. There are multiple scars. There are no incarcerated ventral hernias. EXTREMITIES: Reveal no clubbing, cyanosis, or edema. LABORATORY DATA: Admission labs reveal a white count of 13, with a normal hemoglobin and hematocrit. Admission chemistries are essentially normal. Blood sugar 153. Admission urine reveals a trace of blood and a small amounts of leukocyte esterase. Admission CAT scan reveals a probable partial small bowel obstruction with transition zone in the anterior pelvis. Admission chest x-rays reveals no acute abnormality. ASSESSMENT: 1. Partial small bowel obstruction. 2. Multiple previous abdominal surgeries. 3. History of diabetes. 4. History of hypertension. 5. History of arthritis. PLAN: Continue NG tube decompression of the stomach. Check serial x-rays flat and right, and labs. I have discussed in detail the treatment plan with the patient. She clearly understands that at this point, the NG tube is required. I cannot tell her exactly how long she will be needing the NG tube and at this point, she is agreeable to the current treatment plan. MD MARIA VICTORIA Mayo/MARIE /[id number]
[2019-09-28 13:58] LABS: CREATINE KINASE MB 2.3 ng/mL (0-5.0)
--- NOTE | 2019-09-28 14:41 | History and Physical ---
HISTORY OF PRESENT ILLNESS: The patient is an 84-year-old female with past medical history positive for hypertension and diabetes, came here with abdominal pain and vomiting. She was found to have a small bowel obstruction, admitted to the hospital. REVIEW OF SYSTEMS: CARDIOVASCULAR: No chest pain, no palpitation. RESPIRATORY: No shortness of breath. No cough. GASTROINTESTINAL: She has nausea, vomiting, abdominal pain, which is less now after the NG tube was placed. GENITOURINARY: No frequency or dysuria. ALLERGIES: SHE IS ALLERGIC TO CODEINE AND LORAZEPAM. PAST MEDICAL HISTORY: Positive for hypertension and diabetes. SOCIAL HISTORY: She does not smoke. She does not drink. PHYSICAL EXAMINATION: HEART: Showed regular rhythm. Normal S1, S2 sounds. LUNGS: Clear bilaterally. ABDOMEN: Soft, nontender. No distention. No visceromegaly. EXTREMITIES: Show no edema. VITAL SIGNS: Blood pressure 154/73, temperature 97.5, heart rate 83 per minute, respiratory rate 18 per minute, oxygen saturation 100%. LABORATORY DATA: On the CBC, white blood count 13.93, hemoglobin 13.9, hematocrit 41.6, platelet count 295,000. On the CMP, sodium 135, potassium 4.3, chloride 100, CO2 of 25, BUN of 11, creatinine 0.84, GFR 60, glucose 153, calcium 10.0, total bilirubin 0.3, AST 27, ALT 22, alkaline phosphatase 79, creatine kinase 39, troponin 0.001, total protein 8.1, albumin 4.3, lipase 7. Urinalysis came back showing some red blood cells, white blood cells, and epithelial cells. On the abdomen and pelvis CT, it show findings concerning for small bowel obstruction, possible partial with transition up in the anterior pelvis. Recommend surgical consultation. Last abdominal x-ray done today show enteric tube in satisfactory position overlying the left upper quadrant. IMPRESSION: 1. Small-bowel obstruction. 2. Uncontrolled diabetes mellitus, type 2. 3. Hypertension. PLAN OF TREATMENT: N.p.o. NG tube to suction. Surgical consult, Dr. Baires. We are going to continue Zofran 4 mg IV q.4 hours as needed for nausea, normal saline 75 mL an hour, Zosyn 3.375 g IV q.8 hours. We are going to use hydralazine 25 mg IV every 4 hours as needed for hypertension. MD BLAKE Mcdonough/MARIE /[id number]
[2019-09-28] MEDS: INSULIN LISPRO 100 UNIT/1 ML 3ML VIAL SQ SCH ×2 (16:02→21:00)
[2019-09-28] MEDS: METOPROLOL TARTRATE 25 MG TAB PO SCH (17:15)
--- NOTE | 2019-09-28 17:17 | NUR ---
patient c/o chest pain. EKG ordered.
[2019-09-28] MEDS: NITROGLYCERIN 0.4 MG SUBL SL PRN ×2 (17:35→17:42)
--- NOTE | 2019-09-28 17:55 | NUR ---
spoke with Dr Neri. instructed to give SL nitro up to 3 times and if no relief, to consult cardiology. relief obtained with 2 sl doses 5 minutes apart.
[2019-09-28] MEDS ORDERED: CHLORASEPTIC SPRAY 177 ML BTL MM PRN (20:00)
[2019-09-28] MEDS ORDERED: ACETAMINOPHEN 1000 MG/100 ML IV PRN (20:00)
[2019-09-28] MEDS ORDERED: DIPHENHYDRAMINE HCL INJ 50 MG/ML VIAL IV PRN (20:00)
[2019-09-29] VITALS (11 sets, daily range): BP systolic 111–166; BP diastolic 64–85
[2019-09-29 05:51] LABS: BASOPHILS # (AUTO) 0.1 (0.0-0.1); BASOPHILS % 0.5 % (0.0-1.0); EOSINOPHILS # (AUTO) 0.2 (0.0-0.4); EOSINOPHILS % 1.8 % (0.0-6.0); HEMATOCRIT 40.7 % (34.2-44.1); HEMOGLOBIN 13.3 g/dL (12.0-16.0); LYMPHOCYTES # (AUTO) 1.7 (1.0-3.2); LYMPHOCYTES % 18.5 % (18.0-39.1); MEAN CORPUSCULAR HEMOGLOBIN 30.2 pg (28-32); MEAN CORPUSCULAR HGB CONC 32.7 g/dL (31-35); MEAN CORPUSCULAR VOLUME 92.3 fL (81-99); MONOCYTES # (AUTO) 0.9 (0.2-0.8); MONOCYTES % 9.4 % (4.4-11.3); NEUTROPHILS # (AUTO) 6.3 (2.1-6.9); NEUTROPHILS % 69.5 % (38.7-80.0); PLATELET COUNT 341 x10e3/uL (140-360); RED BLOOD COUNT 4.41 x10e6/uL (3.6-5.1); RED CELL DISTRIBUTION WIDTH 13.4 % (11.7-14.4)
--- NOTE | 2019-09-29 05:54 | Diagnostic Imaging Report ---
EXAM: ABDOMEN 2 VIEW, DATE: 09/29/2019 INDICATION: Small bowel obstruction. COMPARISON: 09/28/2019. FINDINGS: LINES/TUBES: NG/orogastric tube with distal tip projected on the gastric body, however, sidehole at the level of the GE junction; recommend advancing 2 to 3 cm. BOWEL PATTERN: Compared to the rn ent KUB of the recent CT examination, small bowel loops appear decreased in caliber. SOFT TISSUES: No abnormal calcifications. No mass effect. LUNG BASES: Clear. BONES: No acute findings. IMPRESSION: Findings suggesting resolving small bowel dilatation. Signed by: Dr. Bettina Clements M.D. on 09/29/2019 5:50 AM
[2019-09-29 06:14] LABS: ALANINE AMINOTRANSFERASE 19 IU/L (0-55); ALBUMIN 3.8 g/dL (3.5-5.0); ALBUMIN/GLOBULIN RATIO 1.2 (0.8-2.0); ALKALINE PHOSPHATASE 61 IU/L (40-150); ANION GAP 13.1 mmol/L (8-16); BLOOD UREA NITROGEN 9 mg/dL (7-26); BUN/CREATININE RATIO 12 (6-25); CALCIUM 9.1 mg/dL (8.4-10.2); CARBON DIOXIDE 22 mmol/L (22-29); CHLORIDE 108 mmol/L (98-107); CREATININE, SERUM 0.78 mg/dL (0.57-1.11); EST GLOMERULAR FILTRATION RATE > 60 ML/MIN (60-); GLUCOSE 95 mg/dL (74-118); POTASSIUM 4.1 mmol/L (3.5-5.1); SODIUM 139 mmol/L (136-145)
[2019-09-29] MEDS: PIPER-TAZ 3.375 GM / NS 50ML IV SCH ×3 (06:43→22:05)
[2019-09-29] MEDS: INSULIN LISPRO 100 UNIT/1 ML 3ML VIAL SQ SCH ×4 (07:30→20:41)
[2019-09-29] MEDS: PANTOPRAZOLE 40 MG 10ML VIAL IV SCH (08:25)
[2019-09-29] MEDS: METOPROLOL TARTRATE 25 MG TAB PO SCH ×2 (09:00→17:00)
--- NOTE | 2019-09-29 10:30 | NUR ---
DR MILLI PETERSEN TO SEE PT.
--- NOTE | 2019-09-29 10:30 | NUR ---
ASSESSMENT: Spiritual concern Pt relieved to be "feeling better" but worried about COVID-19. Pt identifies as Oriental Orthodox and is a student of the Bible. Intervention: Provided hospitality and information on how to reach chicle grinder feeder, if needed. Outcome: Pt expressed appreciation for visit. No need to follow at this time. CARMINE KAUR Photostatic Copy Maker Spiritual Care Department O: [phone]
--- NOTE | 2019-09-29 16:00 | NUR ---
PT RESTING. IV INFILTRATED WARM COMPRESS APPLIED.
--- NOTE | 2019-09-29 18:55 | NUR ---
BEDSIDE REPORT GIVEN NO OTHER CHANGES IN PT STATUS AT THIS TIME.
--- NOTE | 2019-09-29 19:00 | NUR ---
RECEIVED PATIENT IN BEDSIDE SHIFT REPORT. PATIENT RESTING AT THIS TIME, A&OX3. NO PAIN REPORTED. NO S&S OF DISTRESS NOTED. IV TO R AC 20G ASYMPTOMATIC, INTACT, AND PATENT, RUNNING NS @ 75ML/HR. BED LOCKED IN LOWEST POSITION, SIDE RIALS UPX2, CALL LIGHT IN REACH.
--- NOTE | 2019-09-29 21:29 | NUR ---
MADIHA PETERSEN AT THIS TIME, PATIENT REQUESTING PAIN MEDICATION, NONE AVAILABLE. AWAITING CALL BACK.
[2019-09-29] MEDS: CEPACOL SORE THROAT LOZENGES PO PRN (22:11)
--- NOTE | 2019-09-29 23:09 | NUR ---
SPOKE WITH MD Reji PETERSEN, NEW ORDERS RECEIVED. PATIENT HAS NO NG TUBE AND IS PASSING GAS, SO MD OK'D PAIN MEDICATION. NO SLEEP MEDS FOR NOW.
[2019-09-29] MEDS: HYDROMORPHONE 1MG/1ML INJ IV PRN (23:40)
[2019-09-30] VITALS (8 sets, daily range): BP systolic 123–176; BP diastolic 66–85
[2019-09-30 05:18] LABS: BASOPHILS % 0.6 % (0.0-1.0); EOSINOPHILS # (AUTO) 0.1 (0.0-0.4); HEMATOCRIT 34.3 % (34.2-44.1); HEMOGLOBIN 11.3 g/dL (12.0-16.0); LYMPHOCYTES # (AUTO) 1.3 (1.0-3.2); LYMPHOCYTES % 19.4 % (18.0-39.1); MEAN CORPUSCULAR HGB CONC 32.9 g/dL (31-35); MONOCYTES # (AUTO) 0.7 (0.2-0.8); MONOCYTES % 10.2 % (4.4-11.3); NEUTROPHILS # (AUTO) 4.4 (2.1-6.9); NEUTROPHILS % 67.3 % (38.7-80.0); PLATELET COUNT 234 x10e3/uL (140-360); RED BLOOD COUNT 3.65 x10e6/uL (3.6-5.1); RED CELL DISTRIBUTION WIDTH 13.4 % (11.7-14.4)
[2019-09-30 05:39] LABS: ANION GAP 13.6 mmol/L (8-16); BLOOD UREA NITROGEN 12 mg/dL (7-26); BUN/CREATININE RATIO 18 (6-25); CALCIUM 8.1 mg/dL (8.4-10.2); CARBON DIOXIDE 19 mmol/L (22-29); CHLORIDE 109 mmol/L (98-107); CREATININE, SERUM 0.66 mg/dL (0.57-1.11); EST GLOMERULAR FILTRATION RATE > 60 ML/MIN (60-); GLUCOSE 66 mg/dL (74-118); POTASSIUM 3.6 mmol/L (3.5-5.1); SODIUM 138 mmol/L (136-145)
[2019-09-30] MEDS: PIPER-TAZ 3.375 GM / NS 50ML IV SCH ×3 (05:51→21:19)
[2019-09-30] MEDS: INSULIN LISPRO 100 UNIT/1 ML 3ML VIAL SQ SCH ×4 (07:30→20:41)
--- NOTE | 2019-09-30 08:12 | Diagnostic Imaging Report ---
TECHNIQUE: Frontal views of the abdomen. INDICATION: 84-year-old woman with small bowel obstruction. COMPARISON: Abdomen radiographs 09/29/2019. IMPRESSION: Nonobstructive bowel gas pattern. Interval removal of the nasogastric/orogastric tube. Bones and soft tissues are unremarkable. Signed by: Polly Shepherd MD on 09/30/2019 8:08 AM
[2019-09-30] MEDS: METOPROLOL TARTRATE 25 MG TAB PO SCH ×2 (09:02→16:55)
[2019-09-30] MEDS: PANTOPRAZOLE 40 MG 10ML VIAL IV SCH (09:02)
--- NOTE | 2019-09-30 16:43 | NUR ---
Right AC infiltrated, removed IV, covered with dry dressing. New IV 20guage put in left forearm. Will continue to monitor.
[2019-09-30] MEDS: SODIUM CHLORIDE 0.9% 1000ML 1,000 ML IV SCH (18:44)
[2019-09-30] MEDS ORDERED: SODIUM CHLORIDE 0.9% 1000ML 1,000 ML ONE (18:49)
--- NOTE | 2019-09-30 19:00 | NUR ---
RECEIVED PATIENT IN BEDSIDE SHIFT REPORT. PATIENT RESTING IN BED AT THIS TIME. NO PAIN REPORTED. NO S&S OF DISTRESS NOTED. BED LOCKED IN LOWEST POSITION, SIDE RAILS UPX2, CALL LIGHT IN REACH.
--- NOTE | 2019-09-30 21:15 | NUR ---
PATIENT STATED SHE FELT OFF AND REQUESTED BP BE CHECKED. MANUAL BP CHECK SHOWED 176/78, PRN BP MEDS GIVEN.
[2019-09-30] MEDS: CEPACOL SORE THROAT LOZENGES PO PRN (22:18)
[2019-09-30] MEDS: HYDROMORPHONE 1MG/1ML INJ IV PRN (23:55)
[2019-10-01] VITALS: BP 122/62
[2019-10-01 04:00] VITALS: BP 128/71
[2019-10-01] MEDS: CEPACOL SORE THROAT LOZENGES PO PRN (05:13)
[2019-10-01] MEDS: PIPER-TAZ 3.375 GM / NS 50ML IV SCH (05:13)
--- NOTE | 2019-10-01 07:00 | NUR ---
RECEIVED PATIENT RESTING IN BED NO S/S OF DISTRESS. BED LOW, WHEELS LOCKED, SIDE RAILS X2. CALL LIGHT IN REACH WILL CONTINUE TO MONITOR PATIENT.
[2019-10-01] MEDS: INSULIN LISPRO 100 UNIT/1 ML 3ML VIAL SQ SCH ×2 (07:30→11:30)
[2019-10-01 07:42] VITALS: BP 161/70
[2019-10-01] MEDS: PANTOPRAZOLE 40 MG 10ML VIAL IV SCH (09:08)
[2019-10-01] MEDS: METOPROLOL TARTRATE 25 MG TAB PO SCH (09:08)
[2019-10-01 09:56] VITALS: BP 161/70
--- NOTE | 2019-10-01 11:22 | NUR ---
DR. Montrell LOFTON ROUNDING ON PATIENT. PATIENT OK TO BE DISCHARGED FROM HIS STANDPOINT.
--- NOTE | 2019-10-01 11:30 | NUR ---
SPOKE WITH DR. PETERSEN REGARDING NO INSULIN UNIT AMOUNT LISTED. PATIENT TO TAKE WHATEVER SHE TAKES AT HOME FOR BLOOD SUGAR COVERAGE. PATIENT IS BEING DISCHARGED AND WILL CONTINUE HOME MEDICATIONS UPON DISCHARGE.
[2019-10-01 11:31] VITALS: BP 142/65
--- NOTE | 2019-10-01 12:05 | NUR ---
REMOVED PATIENTS IV. CATHETER TIP INTACT AND PRESSURE DRESSING APPLIED.
--- NOTE | 2019-10-01 12:54 | NUR ---
PATIENT DISCHARGED FROM FACILITY. PATIENT GATHERED ALL PERSONAL BELONGINGS, DISCHARGE INSTRUCTIONS, AND FOLLOW UP INFORMATION. PATIENT LEFT UNIT IN WHEELCHAIR AND WENT HOME VIA PRIVATE AUTO. NO S/S OF DISTRESS WHEN LEAVING FACILITY.
--- NOTE | 2019-11-14 04:06 | Discharge Summary ---
CHIEF COMPLAINT: Abdominal pain and vomiting. FINAL DIAGNOSES: 1. Small bowel obstruction, resolved. 2. Diabetes type 2. 3. Hypertension. DISPOSITION: Home. HOSPITAL COURSE: 84-year-old female with past medical history of hypertension and diabetes, presents to the ER with complaints of abdominal pain and vomiting. Underwent review and evaluation in the emergency room. Following the conclusion of the studies, admission was made regarding findings of small bowel obstruction, uncontrolled diabetes type 2, and hypertension. NG tube will be placed to low intermittent wall suction requested surgical follow up, will be managing antibiotics as well as nausea medication, requesting a surgical followup. With her admission regarding the small bowel obstruction and findings, General Surgery was requested to follow with this. Was reviewed by Dr. Baires. Following his evaluation, his impression was partial small bowel obstruction, multiple previous abdominal surgeries, history of diabetes, hypertension, and arthritis. Recommend continuing NG tube management. Followup KUBs for resolution. The patient was admitted to the Med-Surg floor, she is on ADA diet, n.p.o. initially. She was resting comfortably. She has some gas. Her NG tube was in place. She was started on medication. Her vital signs as well as labs were being followed along with followup KUB. She was progressing her NG tube, was able to discontinue it. Diet was being slowly advanced as tolerated. The x-rays were showing resolution of her small bowel obstruction. She was tolerating her diet well. She was cleared for discharge and was able to be released home in good condition. IMAGING: Initial abdomen pelvis CT shows findings concerning for small bowel obstruction, possibly partial with transitional point in the anterior pelvis. Chest x-ray was carried out. Findings were showing no acute thoracic abnormality. Further KUBs were carried out to monitor the patient's progress of improvement. For final KUB shows nonobstructive bowel gas pattern. Interval removal of the NG tube. Bones and soft tissues are unremarkable. LABORATORY STUDIES: Shows a CBC with initial white cell count 13,900. Followup white cell counts were normal. Initial H and H were 13.9 and 41.6, final study 11.3 and 34.3. Urinalysis 1+ protein, 1+ ketones, trace of occult blood. Microscopic examination was showing 6 to 10 RBCs per high-power field, 6 to 10 WBCs by high-power field. Chemistries; initial panel, electrolytes stable, glucose 153. First set of cardiac enzymes were normal. Second set of cardiac enzymes were normal. Third set of enzymes are normal. Further electrolytes were normal. Glucose levels were normal. Final glucose 88. The patient recovered nicely, was able to be discharged home in good condition. With discharge, she will continue on her current diet. No equipments or supplies were necessary. No drain or Parikh was needed. Activity level as directed by myself as well as by Dr. Baires. She will be following up with her PCP within 7 to 10 days. CURRENT MEDICATIONS: She will be continuing on vitamin B12 a 1000 mcg daily p.o., Tradjenta 5 mg p.o. daily, metoprolol tartrate 25 mg p.o. b.i.d., tramadol 50 mg p.o. q.6, D3 of 25 mcg p.o. daily. She develops recurrence of abdominal pain, unrelieved or any new concerns, she will be contacting her PCP. Dictated by DEMETRIUS Davis Abdirizak Meng MD CC/MODL /[id number]
[2019-11-18] MEDS ORDERED: PRINIVIL20 MG PO (13:34)
== END 2019-10-01 12:54 | disposition home or self-care (01) | DRG 390 ==
LOC: ER 04:45 → ERHOLD 08:19 → MED/SURG 08:58
DX: K56.600 Partial intestinal obstruction, unspecified as to cause (principal); I10 Essential (primary) hypertension; E11.65 Type 2 diabetes mellitus with hyperglycemia; M19.90 Unspecified osteoarthritis, unspecified site
CPT/HCPCS: 36415; 71046; 74018; 74019; 74177; 80048; 80053; 81001; 82550; 82553; 82948; 83690; 84484; 85025; 93005; 96361; 99284; J0360; J1170; J1200; J2543; J7030; Q9967

== ENCOUNTER 2019-10-31 15:23 | Emergency (ER) | payer MEDICARE, OTHER ==
[~2019-10-31] VITALS: Ht 149.9 cm; Wt 58.5 kg
--- NOTE | 2019-10-31 15:43 | NUR ---
PATIENT CURRENTLY ON SUCRALAFATE AND FDGARD, BUT STATES THAT THEY DO NOT HELP
[2019-10-31 16:55] LABS: BILIRUBIN,URINE NEGATIVE (NEGATIVE); CLARITY,URINE SL CLOUDY (CLEAR); COLOR,URINE YELLOW (YELLOW); KETONES,URINE 1+ (NEGATIVE); LEUKOCYTE ESTERASE ,URINE 1+ (NEGATIVE); NITRITE,URINE NEGATIVE (NEGATIVE); PROTEIN,URINE DIPSTICK NEGATIVE (NEGATIVE); URINE UROBILINOGEN 0.2 mg/dL (0.2 - 1)
[2019-10-31 17:12] LABS: BACTERIA,URINE FEW /HPF; EPITHELIAL CELLS,URINE FEW /LPF; RBC,URINE 0-5 /HPF (0-5)
[2019-10-31 17:18] LABS: BASOPHILS # (AUTO) 0.1 (0.0-0.1); BASOPHILS % 0.7 % (0.0-1.0); EOSINOPHILS % 0.5 % (0.0-6.0); HEMATOCRIT 37.3 % (34.2-44.1); HEMOGLOBIN 12.6 g/dL (12.0-16.0); LYMPHOCYTES # (AUTO) 0.8 (1.0-3.2); LYMPHOCYTES % 10.9 % (18.0-39.1); MEAN CORPUSCULAR HEMOGLOBIN 31.2 pg (28-32); MEAN CORPUSCULAR HGB CONC 33.8 g/dL (31-35); MEAN CORPUSCULAR VOLUME 92.3 fL (81-99); MONOCYTES # (AUTO) 0.6 (0.2-0.8); MONOCYTES % 7.4 % (4.4-11.3); NEUTROPHILS # (AUTO) 6.2 (2.1-6.9); NEUTROPHILS % 80.2 % (38.7-80.0); PLATELET COUNT 293 x10e3/uL (140-360); RED BLOOD COUNT 4.04 x10e6/uL (3.6-5.1); RED CELL DISTRIBUTION WIDTH 13.2 % (11.7-14.4)
[2019-10-31 17:49] LABS: ALANINE AMINOTRANSFERASE 14 IU/L (0-55); ALBUMIN 4.1 g/dL (3.5-5.0); ALBUMIN/GLOBULIN RATIO 1.3 (0.8-2.0); ALKALINE PHOSPHATASE 69 IU/L (40-150); ANION GAP 15.3 mmol/L (8-16); BLOOD UREA NITROGEN 15 mg/dL (7-26); BUN/CREATININE RATIO 20 (6-25); CALCIUM 9.2 mg/dL (8.4-10.2); CARBON DIOXIDE 24 mmol/L (22-29); CHLORIDE 99 mmol/L (98-107); CREATINE KINASE 36 IU/L (29-168); CREATININE, SERUM 0.74 mg/dL (0.57-1.11); EST GLOMERULAR FILTRATION RATE > 60 ML/MIN (60-); GLUCOSE 93 mg/dL (74-118); POTASSIUM 4.3 mmol/L (3.5-5.1); SODIUM 134 mmol/L (136-145)
[2019-10-31] MEDS ORDERED: BELLADONNA ALK/PHENOBARBITAL 5 ML UDC PO SCH (18:15)
[2019-10-31] MEDS ORDERED: MAGNESIUM/ALUMINUM/SIMETHICONE 30 ML UDC PO ONE (18:15)
[2019-10-31] MEDS ORDERED: LIDOCAINE VISC 2% SOLN 15 ML UDC PO ONE (18:15)
--- NOTE | 2019-10-31 18:39 | Diagnostic Imaging Report ---
EXAM: Abdomen 1 View INDICATION: ^abd fullness ^[id number] ^1800 COMPARISON: Abdominal x-ray dated September 30, 2019 FINDINGS: Nonobstructive bowel gas pattern. No signs of pneumoperitoneum. Moderate colonic stool burden. Clear lung bases. No acute osseous abnormality. Degenerative changes of lower lumbar spine. IMPRESSION: Nonobstructive bowel gas pattern. Signed by: Dr. Mitul Guadarrama MD on 10/31/2019 6:35 PM
[2019-10-31 19:03] VITALS: BP 152/72
== END 2019-10-31 19:07 | disposition home or self-care (01) ==
LOC: ER 15:23
DX: R10.13 Epigastric pain (principal); R10.84 Generalized abdominal pain; I10 Essential (primary) hypertension; E11.9 Type 2 diabetes mellitus without complications; E78.5 Hyperlipidemia, unspecified; F41.9 Anxiety disorder, unspecified; K21.9 Gastro-esophageal reflux disease without esophagitis
CPT/HCPCS: 36415; 74018; 80053; 81001; 82150; 82550; 82553; 83690; 84484; 85025; 87086; 93005; 99283

== ENCOUNTER → 2019-11-24 | Day surgery (SDC) | payer MEDICARE, OTHER ==
[2019-11-20 09:33] LABS: BASOPHILS # (AUTO) 0.1 (0.0-0.1); BASOPHILS % 0.7 % (0.0-1.0); EOSINOPHILS # (AUTO) 0.2 (0.0-0.4); HEMOGLOBIN 11.8 g/dL (12.0-16.0); LYMPHOCYTES # (AUTO) 0.9 (1.0-3.2); LYMPHOCYTES % 13.3 % (18.0-39.1); MEAN CORPUSCULAR HEMOGLOBIN 30.2 pg (28-32); MEAN CORPUSCULAR HGB CONC 31.9 g/dL (31-35); MEAN CORPUSCULAR VOLUME 94.6 fL (81-99); MONOCYTES # (AUTO) 0.6 (0.2-0.8); MONOCYTES % 9.2 % (4.4-11.3); NEUTROPHILS # (AUTO) 5.1 (2.1-6.9); NEUTROPHILS % 73.4 % (38.7-80.0); PLATELET COUNT 273 x10e3/uL (140-360); RED BLOOD COUNT 3.91 x10e6/uL (3.6-5.1); RED CELL DISTRIBUTION WIDTH 13.4 % (11.7-14.4)
[~2019-11-24] MED LIST changes: +FENTANYL CITRATE/PF 100MCG/2 ML INJ ONE; +GLYCOPYRROLATE INJ 0.2 MG/ML VIAL ONE; +PRINIVIL20 MG PO; +PROPOFOL IV EMULSION 10 MG/ML 20 ML VIAL ONE; +VITAMIN D310 MCG PO
--- OUTSIDE RECORDS SUMMARY | 2019-11-24 08:13 | XMS REPORT | Summary of Care ---
Author Author [facility] Outpatient Imaging - [facility] Organization [facility] Outpatient Imaging - [facility] Address Unknown Phone Unavailable Encounter HQ Dianntr_rell(FIN) [id number] Date(s): 09/01/19 - 09/01/19 [facility] Outpatient Imaging - [place] [address] [place] [address] [phone] Discharge Disposition: Home or Self Care Attending Physician: Ángel Soares MD Referring Physician: Ángel Soares MD Vital Signs No data available for this section Problem List Condition Effective Dates Status Health Status Informan t Arthritis(Confirmed) Active DM - Diabetes Active mellitus(Confirmed) [...]
--- OUTSIDE RECORDS SUMMARY | 2019-11-24 08:13 | XMS REPORT | Summary of Care ---
Author Author [facility] Outpatient Imaging - [facility] Organization [facility] Outpatient Imaging - [facility] Address Unknown Phone Unavailable Encounter HQ Dianntr_rell(FIN) [id number] Date(s): 02/14/19 - 02/14/19 [facility] Outpatient Imaging - [place] [address] [place] [address] [phone] Discharge Disposition: Home or Self Care Attending [...]
--- OUTSIDE RECORDS SUMMARY | 2019-11-24 08:13 | XMS REPORT | Continuity of Care Document ---
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 Name Role Phone [employer] Unavailable Un available Problems Problem Status Onset Date Classification Date Reported Comments Source DX: M25.512-PAIN IN LEFT SHOULDER Active 01/30/2019 [facility] OSTEOPOROSIS Active 03/11/2014 [facility] ROUTINE SCREENING Active 02/01/2012 [facility] ABNORMAL CHEST XRAY Active 08/21/2011 [facility] INCISIONAL HERNIA [id number]/04024 Active 07/28/2011 [facility] INCISIONAL HERNIA Active 07/28/2011 [facility] ABD PAIN Active 05/09/2011 [facility] DM - Diabetes mellitus Active Problem 08/29/2011 [facility] GERD - Gastro-esophageal reflux disease Active Problem 08/29/2011 [facility] HTN - Hypertension Active Problem 08/29/2011 [facility] Incisional hernia Active Problem 08/29/2011 [facility] Arthritis (disorder) Active Problem 09/04/2019 [facility] [place] Diabetes mellitus (disorder) A ctive Problem [facility] [place] Gastroesophageal reflux disease (disorder) Active Problem 09/04/2019 [facility] [place] Hypertensive disorder, systemic arterial (disorder) Active Problem 09/04/2019 MARTIND [place] Incisional hernia (disorder) A ctive Problem [facility] [place] Arthritis Active Problem 08/29/2011 [facility] INCISIONAL HERNIA Active [facility] Medications Medication Details Route Status Patient Instructions Ordering Provider Order Date Source Restoril 15 mg, 1 cap, Route: PO, Drug form: CAP, Bedtime, PRN Sleep, Start date: 08/26/11 12:04:00, Duration: 30 day, Stop date: 09/25/11 12:03:00 PO No Longer Active Gelber 08/26/2011 [facility] Crestor 20 mg, 2 tab, Route: P O, Drug form: TAB, Bedtime, Start date: 08/25/11 21:00:00, Duration: 30 day, Stop date: 09/23/11 21:00:00 PO No Longer Active Hadad 08/26/2011 [facility] tramadol 50 mg oral tablet 50 mg, 1 tab, Route: PO, Drug form: TAB, Q4H, PRN Pain, Start date: 08/25/11 17:31:00, Duration: 30 day, Stop date: 09/24/11 17:30:00 PO No Longer Active Hadad 08/25/2011 [facility] Tylenol 325 mg, 1 tab, Route: PO, Drug form: TAB, Q4H, PRN Pain, Start date: 08/25/11 17:31:00, Duration: 30 day, Stop date: 09/24/11 17:30:00 PO No Longer Active Hadad 08/25/2011 [facility] Ultracet oral tablet 1 tab, Ro brody: PO, Drug Form: TAB, Q4H, PRN Pain, Start date: 08/25/11 11:05:00, Duration: 30 day, Stop date: 09/24/11 11:04:00 PO No Longer Active Hadad 08/25/2011 [facility] Milk of Magnesia 60 ml, Route: PO, Drug Form: SUSP, ONCE, Start date: 08/25/11 11:04:00, Stop date: 08/25/11 11:04:00 PO No Longer Active Hadad 08/25/2011 [facility] Diovan 80 mg, 1 tab, Route: PO , Drug form: TAB, Daily, Start date: 08/25/11 9:00:00, Duration: 30 day, Stop date: 09/23/11 9:00:00 PO No Longer Active Hadad 08/25 [facility] metFORmin 500 mg oral tablet 5 00 mg, 1 tab, Route: PO, Drug form: TAB, Breakfast, Start date: 08/25/11 8:00:00, Duration: 30 day, Stop date: 09/23/11 8:00:00 PO No Longer Active Hadad 08/25/2011 [facility] acetaminophen-hydrocodone 325 mg-5 mg oral tablet 1 tab, Route: PO, Drug Form: TAB, Q4H, PRN Pain, Start date: 08/24/11 13:06:00, Duration: 30 day, Stop date: 09/23/11 13:05:00 PO No Longer Active Hadad 08/24/2011 [facility] Dilaudid 0.5 mg, 0.25 mL, Rout e: IVP, Drug form: INJ, Q3H, PRN Severe Pain, Start date: 08/24/11 13:06:00, Duration: 30 day, Stop date: 09/23/11 13:05:00 IVP No Longer Active Hadad 08/24/2011 [facility] NovoLog FlexPen 18 unit, 0.18 mL, Route: SUB-Q, Drug form: SOLN, Q6H, PRN Blood Glucose Results, Start date: 08/24/11 13:04:00, Duration: 30 day, Stop date: 09/23/11 13:03:00 SUB-Q No Longer Active Hadad 08/24/2011 [facility] glucagon 1 mg, Route: IM, Drug form: PDR/INJ, PRN, PRN Blood Glucose Results, Start date: 08/24/11 13:04:00, Duration: 30 day, Stop date: 09/23/11 14:03:00 IM No Longer Active Hadad 08/24/2011 [facility] Dextrose 50% in Water IV 50 mL , Route: IVP, PRN, Blood Glucose Results, Start date: 08/24/11 13:04:00, Duration: 30 day, Stop date: 09/23/11 14:03:00 IVP No Longer Active Hadad 08/24/2011 [facility] NovoLog FlexPen 9 unit, 0.09 m L, Route: SUB-Q, Drug form: SOLN, Q6H, PRN Blood Glucose Results, Start date: 08/24/11 13:03:00, Duration: 30 day, Stop date: 09/23/11 13:02:00 SUB-Q No Longer Active Hadad 08/24/2011 [facility] Crestor 20 mg oral tablet 20 m g, 1 tab, Bedtime, Substitution Allowed On Hold 08/24/2011 [facility] metFORmin 500 mg oral tablet 5 00 mg, 1 tab, PO, Daily, Substitution Allowed, with breakfastwith breakfast PO On Hold 08/24/2011 [facility] Unasyn 3 gm, 1 ea, Route: IVPB , ABXQ6H, Start date: 08/23/11 18:00:00, Duration: 24 hr, Stop date: 08/24/11 12:00:00 IVPB No Longer Active Hadad 08/24/2011 [facility] Protonix 40 mg, Route: IVP, Dr ug form: INJ, Before Dinner, Start date: 08/23/11 18:00:00, Duration: 30 day, Stop date: 09/22/11 16:30:00 IVP No Longer Active Hadad 08/24/2011 [facility] No Lovenox No Lovenox, 1, Drug form: MISC, Route: MISC, Continuous, 08/23/11 17:30:00, Duration: 30 day, Stop date: 09/22/11 18:29:00 MISC No Longer Active Hadad 08/23 [facility] Dilaudid 1.5 mg, 0.75 mL, Rout e: IVP, Drug form: INJ, Q3H, PRN Pain, Start date: 08/23/11 17:06:00, Duration: 30 day, Stop date: 09/22/11 17:05:00 IVP No Longer Active Hadad 08/23/2011 [facility] Dextrose 5% with 0.45% NaCl IV 1,000 mL 1,000 mL, Rate: 120 ml/hr, Infuse over: 8.3 hr, Route: IV, Total Volume: 1,000, Start date: 08/23/11 17:04:00, Duration: 30 day, Stop date: 09/22/11 17:03:00 IV No Longer Active Hadad 08/23/2011 [facility] Diovan 80 mg, PO, Daily, Subst itution Allowed PO On Hold 08/23/2011 [facility] lidocaine 1% 0.5 mL, Route: RAINES B-Q, Drug Form: INJ, ONCALL, Start date: 08/23/11 10:00:00, Duration: 1 doses or times SUB-Q No Longer Active Hadad 08/23/2011 [facility] Lactated Ringers Injection IV 1,000 mL 1,000 mL, Rate: 25 ml/hr, Infuse over: 40 hr, Route: IV, Total Volume: 1,000, Start date: 08/23/11 9:44:00, Duration: 30 day, Stop date: 09/22/11 9:43:00 IV No Longer Active Jarred 08/23/2011 [facility] Reglan 10 mg oral tablet 10 mg , 1 tab, PO, QID, PRN, 28 tab, nausea, Substitution Allowed, TAB PO Active Zoe jasmine 05/23/2011 [facility] Pepto-Bismol 262 mg/15 mL oral suspension 262 mg, 15 ml, PO, QID, PRN, 120 ml, for dyspepsia, Substitution Allowed, SUSP PO Active joanne05/23/2011 [facility] Zofran 4 mg, Route: IVP, Drug form: INJ, ONCE, Priority: STAT, Start date: 05/22/11 23:06:00, Stop date: 05/22/11 23:06:00 IVP No Longer Active 05/23/2011 [facility] morphine Sulfate 2 mg, Route: IVP, ONCE, Priority: STAT, Start date: 05/22/11 23:06:00, Stop date: 05/22/11 23:06:00 IVP No Longer Active 05/23/2011 [facility] Sodium Chloride 0.9% (Bolus) IV 500 mL 500 mL, Rate: 1,000 ml/hr, Infuse over: 0.5 hr, Route: IV, Total Volume: 500, Bolus dose, Priority: STAT, Start date: 05/22/11 21:18:00, Duration: 1 doses or times, Stop date: 05/22/11 21:47:00 IV No Longer Active [facility] 05/23/2011 [facility] Saline Flush 0.9% 5 ml, Route: IVP, Drug Form: INJ, PRN, PRN Line Flush, Start date: 05/22/11 21:18:00, Duration: 24 hr, Stop date: 05/23/11 21:17:00 IVP No Longer Active [facility] 05/23/2011 [facility] Allergies, Adverse Reactions, Alerts Substance Category Reaction Severity Reaction type Status Date Reported Comments Source codeine Assertion Drug allergy Active [facility] [place] Immunizations No Data Provided for This Section Results Order Name Results Value Reference Range Date Interpretation Comments Source BEDSIDE GLUCOSE TESTING Comment1 Notify RN/ 08/27/2011 STARLA [facility] BEDSIDE GLUCOSE TESTING Gluc POC Lif scn 108 65 - 110 08/27/2011 Normal <sup>1</sup>Interpretive Data: Upper Reportable Limit: 200 mg/dL. [facility] BEDSIDE GLUCOSE TESTING Gluc POC Lif scn 124 65 - 110 08/27/2011 [place] <sup>2</sup>Interpretive Data: Upper Reportable Limit: 200 mg/dL. [facility] BEDSIDE GLUCOSE TESTING Comment1 Notify LOUISA/ 08/27/2011 NA [facility] BEDSIDE GLUCOSE TESTING Gluc POC Lif scn 117 65 - 110 08/26/2011 [place] <sup>3</sup>Interpretive Data: Upper Reportable Limit: 200 mg/dL. [facility] BEDSIDE GLUCOSE TESTING Comment1 Notify LOUISA/ 08/26/2011 NA [facility] CHEMISTRY AGAP 12.3 10.0 - 20.0 08/25/2011 Normal [facility] CHEMISTRY Creatinine Lvl 0.6 0.5 - 1.4 08/25/2011 Normal [facility] CHEMISTRY Sodium Lvl 142 135 - 145 08/25/2011 Normal [facility] CHEMISTRY Potassium Lvl 4.3 3.5 - 5.1 08/25/2011 Normal [facility] CHEMISTRY Calcium Lvl 7.6 8.5 - 10.5 08/25/2011 LOW [facility] CHEMISTRY CO2 28 24 - 32 08/25/2011 Normal [facility] CHEMISTRY Chloride Lvl 106 95 - 109 08/25/2011 Normal [facility] CHEMISTRY BUN 5 7 - 22 08/25/2011 LOW [facility] CHEMISTRY Glucose Lvl 131 08/25/2011 NA <sup>4</sup>Interpretive Data: Reference Ranges : 0 - 7 days : 41 - 90 mg/dL 7 days - 150 yrs : 70 - 99 mg/dL (fasting), based on the clinical recommendations of the [place] [employer]. [facility] HEMATOLOGY Hgb 10.9 12.0 - 16.0 08/25/2011 LOW [facility] HEMATOLOGY RBC 3.48 4.20 - 5.40 08/25/2011 LOW [facility] HEMATOLOGY WBC 7.1 3.7 - 10.4 08/25/2011 Normal [facility] HEMATOLOGY RDW 13.9 11.5 - 14.5 08/25/2011 Normal [facility] HEMATOLOGY MCHC 33.5 32.0 - 36.0 08/25/2011 Normal [facility] HEMATOLOGY MCH 31.5 27.0 - 31.0 08/25/2011 HI [facility] HEMATOLOGY MCV 94.0 81.0 - 99.0 08/25/2011 Normal [facility] HEMATOLOGY Hct 32.7 36.0 - 48.0 08/25/2011 LOW [facility] HEMATOLOGY MPV 9.3 7.4 - 10.4 08/25/2011 Normal [facility] HEMATOLOGY Platelet 208 133 - 450 08/25/2011 Normal [facility] HEMATOLOGY Atypical Lymphs 0.0 <=0.0 08/25/2011 Normal [facility] HEMATOLOGY RBC Morph Lynnette l (08/25/2011 04:07:00) 08/25/2011 Normal [facility] HEMATOLOGY Plt Morph Lynnette l (08/25/2011 04:07:00) 08/25/2011 Normal [facility] HEMATOLOGY Tot Cell Ct 100 08/25/2011 NA [facility] HEMATOLOGY Monocytes 5.0 2.0 - 12.0 08/25/2011 Normal [facility] HEMATOLOGY Eosinophils 0.0 0.0 - 4.0 08/25/2011 Normal [facility] HEMATOLOGY Basophils 0.0 0.0 - 1.0 08/25/2011 Normal [facility] HEMATOLOGY Lymphocytes 26.0 20.0 - 40.0 08/25/2011 Normal [facility] HEMATOLOGY Segs-Bands # 4.9 1.5 - 8.1 08/25/2011 Normal [facility] HEMATOLOGY Monocytes # 0.4 0.0 - 0.8 08/25/2011 Normal [facility] HEMATOLOGY Bands 0.0 0.0 - 11.0 08/25/2011 Normal [facility] HEMATOLOGY Lymphocytes # 1.8 1.0 - 5.5 08/25/2011 Normal [facility] HEMATOLOGY Segs 69.0 45.0 - 75.0 08/25/2011 Normal [facility] CHEMISTRY AGAP 13.3 10.0 - 20.0 08/24/2011 Normal [facility] CHEMISTRY Glucose Lvl 133 08/24/2011 NA <sup>5</sup>Interpretive Data: Reference Ranges : 0 - 7 days : 41 - 90 mg/dL 7 days - 150 yrs : 70 - 99 mg/dL (fasting), based on the clinical recommendations of the [place] [employer]. [facility] CHEMISTRY CO2 26 24 - 32 08/24/2011 Normal [facility] CHEMISTRY Calcium Lvl 7.8 8.5 - 10.5 08/24/2011 LOW [facility] CHEMISTRY Potassium Lvl 4.3 3.5 - 5.1 08/24/2011 Normal [facility] CHEMISTRY Chloride Lvl 106 95 - 109 08/24/2011 Normal [facility] CHEMISTRY BUN 8 7 - 22 08/24/2011 Normal [facility] CHEMISTRY Sodium Lvl 141 135 - 145 08/24/2011 Normal [facility] CHEMISTRY Creatinine Lvl 0.7 0.5 - 1.4 08/24/2011 Normal [facility] HEMATOLOGY Segs-Bands # 7.4 1.5 - 8.1 08/24/2011 Normal [facility] HEMATOLOGY Monocytes # 0.7 0.0 - 0.8 [...] MCHC 34.5 32.0 - 36.0 08/24/2011 Normal [facility] HEMATOLOGY RDW 13.2 11.5 - 14.5 08/24/2011 Normal [facility] HEMATOLOGY WBC 8.7 3.7 - 10.4 08/24/2011 Normal [facility] HEMATOLOGY MCV 93.3 81.0 - 99.0 08/24/2011 Normal [facility] HEMATOLOGY MCH 32.2 27.0 - 31.0 08/24/2011 [facility] HEMATOLOGY Hct 33.1 36.0 - 48.0 08/24/2011 LOW [facility] HEMATOLOGY RBC 3.55 4.20 - 5.40 08/24/2011 LOW [facility] HEMATOLOGY Hgb 11.4 12.0 - 16.0 08/24/2011 LOW [facility] HEMATOLOGY Platelet 228 133 - 450 08/24/2011 Normal [facility] HEMATOLOGY MPV 9.2 7.4 - 10.4 08/24/2011 Normal [facility] CHEMISTRY ALT 24 0 - 65 08/21/2011 Normal [facility] CHEMISTRY Total Protein 7.5 6.4 - 8.4 08/21/2011 Normal [facility] CHEMISTRY Albumin Lvl 3.8 3.5 - 5.0 08/21/2011 Normal [facility] CHEMISTRY Alk Phos 95 39 - 136 08/21/2011 Normal [facility] CHEMISTRY Bili Total 0.3 0.2 - 1.3 08/21/2011 Normal [facility] CHEMISTRY AST 16 0 - 37 08/21/2011 Normal [facility] CHEMISTRY Calcium Lvl 8.4 8.5 - 10.5 08/21/2011 LOW [facility] CHEMISTRY CO2 27 24 - 32 08/21/2011 Normal [facility] CHEMISTRY Potassium Lvl 3.8 3.5 - 5.1 08/21/2011 Normal [facility] CHEMISTRY Chloride Lvl 104 95 - 109 08/21/2011 Normal [facility] CHEMISTRY BUN 13 7 - 22 08/21/2011 Normal [facility] CHEMISTRY Sodium Lvl 141 135 - 145 08/21/2011 Normal [facility] CHEMISTRY Creatinine Lvl 0.6 0.5 - 1.4 08/21/2011 Normal [facility] CHEMISTRY Glucose Lvl 117 08/21/2011 NA <sup>6</sup>Interpretive Data: Reference Ranges : 0 - 7 days : 41 - 90 mg/dL 7 days - 150 yrs : 70 - 99 mg/dL (fasting), based on the clinical recommendations of the [place] [employer]. [facility] CHEMISTRY Globulin 3.7 2.0 - 4.0 08/21/2011 Normal [facility] CHEMISTRY A/G Ratio 1.0 0.7 - 1.6 08/21/2011 Normal [facility] CHEMISTRY B/C Ratio 22 6 - 25 08/21/2011 Normal [facility] CHEMISTRY AGAP 13.8 10.0 - 20.0 08/21/2011 Normal [facility] HEMATOLOGY PTT 30.3 22.9 - 35.8 08/21/2011 Normal <sup>8</sup>Interpretive Data: Heparin T herapeutic Range: 57 - 92 Seconds [facility] HEMATOLOGY PT 11.8 12.0 - 14.7 08/21/2011 LOW [facility] HEMATOLOGY INR 0.86 0.85 - 1.17 08/21/2011 Normal <sup>7</sup>Interpretive Data: RECOMMEND ED RANGES FOR PROTIME INR: 2.0-3.0 for most medical and surgical thromboembolic states. 2.5-3.5 for artificial heart valves and recurrent embolism. INR SHOULD BE USED ONLY FOR PATIENTS ON STABLE ANTICOAGULANT THERAPY. [facility] HEMATOLOGY MPV 9.3 7.4 - 10.4 08/21/2011 Normal [facility] HEMATOLOGY RDW 13.0 11.5 - 14.5 08/21/2011 Normal [facility] HEMATOLOGY Platelet 232 133 - 450 08/21/2011 Normal [facility] HEMATOLOGY Hct 36.6 36.0 - 48.0 08/21/2011 Normal [facility] HEMATOLOGY MCHC 34.6 32.0 - 36.0 08/21/2011 Normal [facility] HEMATOLOGY MCV 92.3 81.0 - 99.0 08/21/2011 Normal [facility] HEMATOLOGY Hgb 12.6 12.0 - 16.0 08/21/2011 Normal [facility] HEMATOLOGY MCH 31.9 27.0 - 31.0 08/21/2011 HI [facility] HEMATOLOGY RBC 3.96 4.20 - 5.40 08/21/2011 LOW [facility] HEMATOLOGY WBC 5.5 3.7 - 10.4 08/21/2011 Normal [facility] HEMATOLOGY Basophils # 0.0 0.0 - 0.2 08/21/2011 Normal [facility] HEMATOLOGY Lymphocytes # 1.0 1.0 - 5.5 08/21/2011 Normal [facility] HEMATOLOGY Eosinophils # 0.3 0.0 - 0.5 08/21/2011 Normal [facility] HEMATOLOGY Eosinophils 5.3 0.0 - 4.0 08/21/2011 HI [facility] HEMATOLOGY Segs-Bands # 3.7 1.5 - 8.1 08/21/2011 Normal [facility] HEMATOLOGY Monocytes # 0.4 0.0 - 0.8 08/21/2011 Normal [facility] HEMATOLOGY Basophils 0.9 0.0 - 1.0 08/21/2011 Normal [facility] HEMATOLOGY Monocytes 7.6 2.0 - 12.0 08/21/2011 Normal [facility] HEMATOLOGY Lymphocytes 18.7 20.0 - 40.0 08/21/2011 LOW [facility] HEMATOLOGY Segs 67.5 45.0 - 75.0 08/21/2011 Normal [facility] CHEMISTRY CK MB Index 0.7 0.0 - 2.5 05/23/2011 Normal [facility] CHEMISTRY CK MB 0.6 0.5 - 3.6 05/23/2011 Normal [facility] CHEMISTRY Total CK 90.0 12 - 191 05/23/2011 Normal [facility] CHEMISTRY Troponin-I <0.02 0.00 - 0.40 05/23/2011 Normal [facility] CHEMISTRY Lipase Lvl 88.0 73 - 393 05/23/2011 Normal [facility] CHEMISTRY A/G Ratio 1.0 0.7 - 1.6 05/23/2011 Normal [facility] CHEMISTRY AST 25.0 0 - 37 05/23/2011 Normal [facility] CHEMISTRY Bili Total 0.4 0.2 - 1.3 05/23/2011 Normal [facility] CHEMISTRY AGAP 8.9 10.0 - 20.0 05/23/2011 LOW [facility] CHEMISTRY B/C Ratio 18.0 6 - 25 05/23/2011 Normal [facility] CHEMISTRY Globulin 4.2 2.0 - 4.0 05/23/2011 [facility] CHEMISTRY Glucose Lvl 105.0 05/23/2011 NA <sup>1</sup>Interpretive Data: Reference Ranges : 0 - 7 days : 41 - 90 mg/dL 7 days - 150 yrs : 70 - 99 mg/dL (fasting), based on the clinical recommendations of the [place] [employer]. [facility] CHEMISTRY BUN 11.0 7 - 22 05/23/2011 Normal [facility] CHEMISTRY Creatinine Lvl 0.6 0.5 - 1.4 05/23/2011 Normal [facility] CHEMISTRY Chloride Lvl 103.0 95 - 109 05/23/2011 Normal [facility] CHEMISTRY CO2 32.0 24 - 32 05/23/2011 Normal [facility] CHEMISTRY Sodium Lvl 140.0 135 - 145 05/23/2011 Normal [facility] CHEMISTRY Potassium Lvl 3.9 3.5 - 5.1 05/23/2011 Normal [facility] CHEMISTRY Calcium Lvl 9.3 8.5 - 10.5 05/23/2011 Normal [facility] CHEMISTRY Total Protein 8.5 6.4 - 8.4 05/23/2011 [facility] CHEMISTRY Alk Phos 75.0 39 - [...] HEMATOLOGY Eosinophils 4.3 0.0 - 4.0 05/23/2011 [facility] HEMATOLOGY Segs-Bands # 4.4 1.5 - 8.1 05/23/2011 Normal [facility] HEMATOLOGY Basophils 0.9 0.0 - 1.0 05/23/2011 Normal [facility] HEMATOLOGY Monocytes 6.8 2.0 - 12.0 05/23/2011 Normal [facility] HEMATOLOGY Lymphocytes 24.8 20.0 - 40.0 05/23/2011 Normal [facility] HEMATOLOGY Segs 63.2 45.0 - 75.0 05/23/2011 Normal [facility] HEMATOLOGY Basophils # 0.1 0.0 - 0.2 05/23/2011 Normal [facility] HEMATOLOGY MPV 9.4 7.4 - 10.4 05/23/2011 Normal [facility] HEMATOLOGY Platelet 270.0 133 - 450 05/23/2011 Normal [facility] HEMATOLOGY RDW 13.2 11.5 - 14.5 05/23/2011 Normal [facility] HEMATOLOGY MCH 32.1 27.0 - 31.0 05/23/2011 HI [facility] HEMATOLOGY MCHC 34.5 32.0 - 36.0 05/23/2011 Normal [facility] HEMATOLOGY MCV 92.9 81.0 - 99.0 05/23/2011 Normal [facility] HEMATOLOGY Hgb 13.3 12.0 - 16.0 05/23/2011 Normal [facility] HEMATOLOGY Hct 38.4 36.0 - 48.0 05/23/2011 Normal [facility] HEMATOLOGY RBC 4.14 4.20 - 5.40 05/23/2011 LOW [facility] HEMATOLOGY WBC 6.9 3.7 - 10.4 05/23/2011 Normal [facility] URINALYSIS UA Nitrite Negat dayna (05/22/2011 19:40:00) ?? >Nega tive 05/23/2011 Normal [facility] URINALYSIS UA Bacteria None Seen (05/22/2011 19:40:00) ?? >None Seen 05/23/2011 Normal [facility] URINALYSIS UA Leuk Est Trace *ABN* (05/22/2011 19:40:00) ?? >Nega tive 05/23/2011 ABN [facility] URINALYSIS UA Sq Epi None Seen (05/22/2011 19:40:00) ?? >Few 05/23/2011 Normal [facility] URINALYSIS UA WBC 3-5 / HPF (05/22/2011 19:40:00) ?? >None Seen 05/23/2011 Normal [facility] URINALYSIS UA Ketones Negat dayna *NA* (05/22/2011 19:40:00) ?? >Nega tive 05/23/2011 NA [facility] URINALYSIS UA Bili Negat dayna *NA* (05/22/2011 19:40:00) ?? >Nega tive 05/23/2011 NA [facility] URINALYSIS UA Blood Negat dayna (05/22/2011 19:40:00) ?? >Nega tive 05/23/2011 Normal [facility] URINALYSIS UA Urobilinogen 0.2 0.1 - 1.0 05/23/2011 Normal [facility] URINALYSIS UA RBC None Seen (05/22/2011 19:40:00) ?? >0 - 2 05/23/2011 Normal [facility] URINALYSIS UA Glucose Negat dayna (05/22/2011 19:40:00) ?? >Nega tive 05/23/2011 Normal [facility] URINALYSIS UA pH 6.0 5.0 - 8.0 05/23/2011 Normal [facility] URINALYSIS UA Protein Negat dayna (05/22/2011 19:40:00) ?? >Nega tive 05/23/2011 Normal [facility] URINALYSIS UA Turbidity Clear (05/22/2011 19:40:00) ?? >Clear 05/23/2011 Normal [facility] URINALYSIS UA Spec Grav 1.01 <<=1.030 05/23/2011 Normal [facility] URINALYSIS UA Color Yello w *NA* (05/22/2011 19:40:00) ?? >Eagle ow 05/23/2011 NA [facility] Pathology Reports No Data Provided for This Section Diagnostic Reports Report Value Date Source Hand 2 views DX Exam: Wrist co mplete DX, Hand 2 views DX, left Reason for Exam: - M79.642 Pain in left hand Comparison Exam: None Discussion: No acute bony abnormalities appreciated. 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 No suspicious osteoblastic or osteolytic lesions seen to suggest pathologic involvement. Impression: 1. 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 09/01/2019 ADDISON Slade Wrist complete DX Exam: Wrist complete DX, Hand 2 views DX, left Reason for Exam: - M79.642 Pain in left hand Comparison Exam: None Discussion: No acute bony abnormalities appreciated. 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 No suspicious osteoblastic or osteolytic lesions seen to suggest pathologic involvement. Impression: 1. 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 09/01/2019 LEONEL Slade Shoulder wo contrast MRI EXAMI NATION: MR right shoulder without contrast HISTORY: M25.511 Pain in right shoulder - M25.511 Pain in right shoulder; AGE: 84 years GENDER: Female COMPARISON: There are no radiographs available for review. TECHNIQUE: Multiplanar, multisequence magnetic resonance imaging of the right shoulder is performed with a local coil. Transverse, oblique coronal, and oblique sagittal images are obtained. FINDINGS: Biceps: The long head of the biceps tendon is not visualized sinus intra- articular portion suggesting rupture. There is no significant tenosynovitis of the long head of the biceps tendon. Labrum: The glenoid labrum appears intact on this non-arthrographic examination. Rotator cuff tendons: Moderate subscapularis tendinosis without evidence of tear. Moderate supraspinatus tendinosis without tear. Mild infraspinatus tendinosis without tear. Muscles: There is normal signal intensity and muscle bulk of the rotator cuff musculature. Acromio-osseous outlet: There is a type 1 acromion without a subacromial spur. The coracoacromial and coracoclavicular ligaments are intact. Moderate acromioclavicular joint osteoarthritis Bone: There are no acute fractures. There are no suspicious bone marrow replacing lesions. Cartilage: There is no focal glenohumeral chondral defect. Soft tissue: There is no fluid in the subacromial-subdeltoid bursa. A physiologic amount of fluid is present in the glenohumeral joint. The glenohumeral capsule is intact. The inferior glenohumeral ligament is unremarkable..The axilla and visualized portions of the hemithorax are unremarkable. IMPRESSION: 1. Complete rupture of the intra-articul ar biceps tendon. 2. Moderate subscapularis and supraspina tus tendinosis without tear. 3. Moderate acromio clavicular joint ost eoarthritis. 02/14/2019 ADDISON Slade Consultation Notes No Data Provided for This Section Discharge Summaries No Data Provided for This Section History and Physicals No Data Provided for This Section Vital Signs Vital Sign Value Date Comments Source Temperature Oral (F) 98.3 F 08/27/2011 [facility] Diastolic (mm Hg) 76 08/27/2011 [facility] Systolic (mm Hg) 119 08/27/2011 [facility] Respitory Rate 18 08/27/2011 [facility] Heart Rate 76 08/27/2011 [facility] Temperature Oral (F) 98.3 F 08/27/2011 [facility] Heart Rate 82 08/27/2011 [facility] Respitory Rate 18 08/27/2011 [facility] Systolic (mm Hg) 121 08/27/2011 [facility] Diastolic (mm Hg) 69 08/27/2011 [facility] Systolic (mm Hg) 116 08/27/2011 [facility] Respitory Rate 18 08/27/2011 [facility] Diastolic (mm Hg) 74 08/27/2011 [facility] Temperature Oral (F) 98.0 F 08/27/2011 [facility] Heart Rate 84 08/27/2011 [facility] Height 152.40 cm 08/25/2011 [facility] Weight 63.636 08/25/2011 [facility] Weight 63.636 08/21/2011 [facility] Height 154.94 cm 08/21/2011 [facility] Temperature Oral (F) 98.5 F 05/23/2011 [facility] Respitory Rate 18.0 05/23/2011 [facility] Diastolic (mm Hg) 86.0 05/23/2011 [facility] Heart Rate 78.0 05/23/2011 [facility] Systolic (mm Hg) 147.0 05/23/2011 [facility] Temperature Oral (F) 98.3 F 05/23/2011 [facility] Heart Rate 78.0 05/23/2011 [facility] Respitory Rate 18.0 05/23/2011 [facility] Systolic (mm Hg) 141.0 05/23/2011 [facility] Diastolic (mm Hg) 71.0 05/23/2011 [facility] Systolic (mm Hg) 196.0 05/23/2011 [facility] Respitory Rate 16.0 05/23/2011 [facility] Heart Rate 72.0 05/23/2011 [facility] Diastolic (mm Hg) 70.0 05/23/2011 [facility] Temperature Oral (F) 98.0 F 05/23/2011 [facility] Height 152.4 cm 05/23/2011 [facility] Weight 63.636 05/23/2011 [facility] Encounters Location Location Details Encounter Type Encounter Number Reason For Visit Attending Provider ADM Date DC Date Status Source [facility] Emergency [id number] ELISE OVALLES 05/22/2011 05/23/2011 [facility]charged [facility] Outpatient [id number] ABNORMAL CHEST XR AY KIMBERLY HADAD 08/22/2011 [facility] Inpatient [id number] INCISIONAL HERNIA [phone] KIMBERLY HADAD 08/23/2011 08/27/2011 Active [facility] Outpatient [id number] Ángel Victorth 02/02/2019 02/03/2019 [facility] [place] [facility] [id number] Ángel [facility] 02[facility]14/2019 02/15/2019 [facility] [place] [facility] [place] [facility] [id number] [facility] 09/01/2019 09/02/2019 [facility] [place] [facility] Outpatient [id number] ROUTINE SCREENING KERON LYON Active [facility] Procedures No Data Provided for This Section Assessment and Plan No Data Provided for This Section Plan of Care No Data Provided for This Section Social History Social History Date Source Social History TypeResponse 09/02/2019 [facility] [place] Social History TypeResponse 02/03/2019 [facility] Family History No Data Provided for This Section Advance Directives No Data Provided for This Section Functional Status No Data Provided for This Section
--- OUTSIDE RECORDS SUMMARY | 2019-11-24 08:14 | XMS REPORT ---
Author Author [facility] t Organization [facility] Address [address] [place] [address] Phone Unavailable Care Team Providers Care Skill Training Program Coordinator Name Role Phone LIGIA WEST DO PCP DAVIDA VALE Attphys Unavailable HAYLEY PETERSEN Attphys Unavailable Homero Soares Attphys Montrell HOOPER Attphys Unavailable Patrick BAEZ (NON STAFF) FAVIOLA Attphys Unavailable Patrick ABDULLAHI Attphys Unavailable LIGIA WEST Attphys Unavailable Pramod FUNES Attphys Unavailable Christi RINCON Attphys Unavailable HAYLEY PETERSEN Admphys Unavailable Payers Payer Name Policy Type Policy Number Effective Date Expiration Date S chloé [employer] [id number] 2019 00:00:00 [facility] [id number] 2011 00:00 :00 [facility] [id number] 2018 00:00:00 [facility] [id number] 2018 00:00 :00 [facility] [id number] 2011 00:00 :00 [facility] [id number] [facility] [id number] 2018 00:00:00 [facility] [id number] 2011 00:00 :00 [facility] [id number] 2017 00:00:00 [facility] [id number] [facility] [id number] 2017 00:00 :00 [facility] [id number] [facility] Problems Condition Name Condition Details Condition Category Status Onset Date Resolution Date Last Treatment Date Treating Clinician Comments Source Hypertension Hypertension Problem Active [facility] Hyponatremia Hyponatremia Problem Active [facility] INTESTNL ADHESIONS, UNSP TO PARTIAL VERSUS COMPLETE OBS T Problem Active [facility] PARTIAL INTESTINAL OBSTRUCTION, UNSPECIFIED TO CAUSE Problem Active [facility] Allergies, Adverse Reactions, Alerts Allergy Name Allergy Type Status Severity Reaction(s) Onset Date Inacti ve Date Treating Clinician Comments Source Lorazepam Allergy to Substance Active Moderate 2019-09-28 00:00:00 [facility] Codeine Allergy to Substance Active Moderate STOMACH PAIN 2019-02-10 00 :00:00 [facility] codeine DA Active MO 2018-06-28 00:00:00 [facility] codeine DA Active MO 2017-07-17 00:00:00 [facility] Medications Ordered Medication Name Filled Medication Name Start Date Stop Da te Current Medication? Ordering Clinician Indication Dosage Frequency Signature (SIG) Comments Components Source Tramadol Hcl (Ultram) 50 Mg Tablet Tramadol Hcl (Ultram) 50 Mg Tablet 2018-08-11 00:00:00 Yes Marilyjulian Jenniferr Do 50 Every 6 Hours as n eeded for Pain [facility] Cephalexin Monohydrate (Keflex) 500 Mg Capsule, 500 Mg Oral Cephalexin Monohydrate (Keflex) 500 Mg Capsule, 500 Mg Oral 2018-08-11 00:00:00 08-29 00:00:00 No Davida Rodriguezr Do 500 Every 6 Hours [facility] Cyanocobalamin (Vitamin B-12) (B-12) 1,000 Mcg Tablet. er Cyanocobalamin (Vitamin B-12) (B-12) 1,000 Mcg Tablet.er Yes 1 Daily [facility] D3 D3 Yes 25 [facility] Linagliptin (Tradjenta) 5 Mg Tablet Linagliptin (Tradjenta) 5 Mg Tabl et Yes 5 Daily [facility] Metoprolol Tartrate 25 Mg Tablet Metoprolol Tartrate 25 Mg Tablet Yes 25 Twice A Day [facility] Losartan Potassium 100 Mg Tablet, 100 Mg Oral Losartan Potassium 100 Mg Tablet, 100 Mg Oral 2019-02-10 00:00:00 No 100 Daily [facility] Metformin Hcl 500 Mg Tablet, 500 Mg Oral Metformin Hcl 500 Mg Tablet, 500 Mg Oral 2019-02-10 00:00:00 No 500 Daily [facility] Omeprazole 20 Mg Capsule., 20 Mg Oral Omeprazole 20 Mg Cap olga., 20 Mg Oral 2019-02-10 00:00:00 No 20 Daily [facility] Promethazine Hcl (Phenergan) 25 Mg/1 Ml Ampul, 25 Mg O ral Promethazine Hcl (Phenergan) 25 Mg/1 Ml Ampul, 25 Mg Oral 2019-02-10 00:00:00 No 25 As Needed as needed for Nausea [facility] Cefuroxime Axetil (Cefuroxime) 250 Mg Tablet, 250 Mg O ral Cefuroxime Axetil (Cefuroxime) 250 Mg Tablet, 250 Mg Oral 2018-08-29 00:00:00 No 250 Every 12 Hours [facility] Losartan Potassium 100 Mg Tablet, 100 Mg Oral Losartan Potassium 100 Mg Tablet, 100 Mg Oral 2018-08-29 00:00:00 No 100 Daily [facility] Hydrochlorothiazide 25 Mg Tablet, 12.5 Mg Oral Hydroch lorothiazide 25 Mg Tablet, 12.5 Mg Oral 2018-07-21 00:00:00 No 12.5 Daily@0600 [facility] Linagliptin (Tradjenta) 5 Mg Tablet, 5 Mg Peg Tube Candace agliptin (Tradjenta) 5 Mg Tablet, 5 Mg Peg Tube 2018-07-21 00:00:00 No 5 Da bartolome [facility] Linzess , 145 Mg Oral Linzess , 145 Mg Oral 2018-07-21 00:00:00 No 145 Daily [facility] Acetaminophen 325 Mg Tablet, 325 Mg Oral Acetaminophen 325 Mg Tablet, 325 Mg Oral 2018-07-19 00:00:00 No 325 Daily as needed fo r Pain [facility] Tramadol Hcl (Ultram 50MG*) 50 Mg Tab, 37.5 Mg Oral Tr amadol Hcl (Ultram 50MG*) 50 Mg Tab, 37.5 Mg Oral 2018-07-19 00:00:00 No 37.5 As Needed for Pain [facility] Metformin Hcl 500 Mg Tablet, 500 Mg Oral Metformin Hcl 500 Mg Tablet, 500 Mg Oral 2018-07-17 00:00:00 No 500 Twice A Day [facility] Omeprazole 40 Mg Capsule., 1 Cap Oral Omeprazole 40 Mg Cap olga., 1 Cap Oral 2018-07-17 00:00:00 No 1 Daily [facility] Valsartan (Diovan) 80 Mg Tab, 80 Mg Oral Valsartan (Di ovan) 80 Mg Tab, 80 Mg Oral 2018-07-17 00:00:00 No 80 Daily [facility] Procedures Procedure Date / Time Performed Performing Clinician [facility] e Computed tomography of abdomen and pelvis with contrast 2019 00:00:00 ZAINAB CHUNG [facility] X-ray of chest, two views 2019-09-28 00:00:00 ZAINAB CHUNG [facility] Computed tomography of abdomen and pelvis with contrast 2018 00:00:00 FLORENCE HOOPER [facility] Encounters Start Date/Time End Date/Time [facility] ID Source 2019-09-28 08:19:00 2019-10-01 12:54:00 Discharged Inpatient 1 STEVEN PETERSENMAGI [facility] [id number] [facility] 2019-09-01 16:04:00 2019-09-01 23:59:00 [id number] Out patient Imaging - [facility] 2019-04-28 14:18:00 2019-04-28 18:43:00 Departed Emergency Room 1 FLORENCE HOOPER [facility] [id number] [facility] 2019-03-21 12:22:00 2019-03-21 12:22:00 Registered Clinic 3 FAVIOLA BAEZ [facility] [id number] [facility] 2019-02-14 08:53:00 2019-02-14 23:59:00 Outpatient Ángel Soares [facility] [id number] [facility] Out patient Imaging - [facility] 2019-02-10 16:23:00 2019-02-10 20:20:00 Departed Emergency Room 1 EMILY ABDULLAHI [facility] [id number] [facility] 2019-02-02 16:24:00 2019-02-02 23:59:00 Outpatient Ángel Soares [facility] [id number] [facility] 2019-02-02 16:24:00 2019-02-02 16:24:00 Outpatient [id number] 2018-08-29 06:34:00 2018-08-29 06:34:00 Registered Surgical Day Care [facility] [id number] [facility] 2018-08-11 14:48:00 2018-08-11 19:37:00 Departed Emergency Room 1 DAVIDA ENAMORADO [facility] [id number] [facility] 2018-08-05 13:08:00 2018-08-05 13:08:00 Registered Clinic 3 LIGIA CERVANTES [facility] [id number] [facility] 2018-07-19 21:32:00 2018-07-21 14:23:00 Discharged Inpatient (obs) 1 STELLA FUNES [facility] [id number] [facility] 2018-07-17 22:57:00 2018-07-18 01:52:00 Departed Emergency Room [facility] [id number] [facility] 2018-07-16 12:30:00 2018-07-16 12:30:00 Registered Clinic 3 LIGIA CERVANTES [facility] [id number] [facility] 2017-11-28 11:45:00 2017-11-28 11:45:00 Registered Clinic 3 JILLIAN RINCON [facility] [id number] [facility] Results Test Description Test Time Test Comments Results Result Comments Source ABDOMEN-1VIEW (KUB) 2019-10-31 18:34:00 [facility] [address] [place] [address] Patient Name: SHARLENE MOORE MR #: [id number] : 1935 Age/Sex: 84/F Req #: [id number] Adm Physician: Ordered by: ZAINAB PATTERSON FLARE WORKER Report #: [id number] Location: ER Room/Bed: Procedure: [id number] DX/ABDOMEN-1VIEW (KUB) Exam Date: 10/31/19 Exam Time: 1800 REPORT STATUS: Signed EXAM: Abdomen 1 View INDICATION: abd fullness [id number] COMPARISON: Abdominal x-ray dated September 30, 2019 FINDINGS: Nonobstructive bowel gas pattern. No signs of pneumoperitoneum. Moderate colonic stool burden. Clear lung bases. No acute osseous abnormality. Degenerative changes of lower lumbar spine. IMPRESSION: Nonobstructive bowel gas pattern. Signed by: Dr. Jenny Witt MD on 10/31/2019 6:35 PM Dictated By: JENNY WITT MD 34 Transcribed By: JOHN on 10/31/191834 COPY TO: ZAINAB PATTERSON FLARE WORKER Bedside Glucose 2019-10-01 14:39:00 Test Item Bedside Glucose (test code = 09710-0) 140 70-120 Meter ID: [id number] [facility] 2019-09-30 08:03:00 [place] [address] Patient Name: SHARLENE MOORE MR #: [id number] : 1935 Age/Sex: 84/F Req #: [id number] Adm Physician: HAYLEY PETERSEN MD Ordered by: CAREY LOFTON MD Report #: [id number] Location: MED/SURG Room/Bed: 114-1 Procedure: [id number] DX/ABDOMEN 2 VIEW Exam Date: 09/30/19 Exam Time: 05 REPORT STATUS: Signed TECHN IQUE: Frontal views of the abdomen. INDICATION: 84-year-old woman with smal l bowel obstruction. COMPARISON: Abdomen radiographs 09/29/2019. IMPRES JOHN: Nonobstructive bowel gas pattern. Interval removal of the nasogastr ic/orogastric tube. Bones and soft tissues are unremarkable. Signed by : Milton Shepherd MD on 09/30/2019 8:08 AM Dictated By: MILTON SHEPHERD MD 08 Transcribed By: Bev RAMIREZ on 09/30/19 0808 COPY TO: CAREY LOFTON MD Sodium Kciop7018-69-61 05:40:00* Test Item Value Reference Range Interpretation Comments Sodium Level (test code = 2951-2) 138 136-145 [facility] Center[facility]assium Naeqt1435-96-54 05:40:00* Test Item Value Reference Range Interpretation Comments Potassium Level (test code = 2823-3) 3.6 3.5-5.1 [facility] CenterChloride Gxrcu9197-13-44 05:40:00* Test Item Value Reference Range Interpretation Comments Chloride Level (test code = 2075-0) 109 98-107 [facility] CenterCarbon Dioxide Cybbj2105-82-68 05:40:00* Test Item Value Reference Range Interpretation Comments Carbon Dioxide Level (test code = 2028-9) 19 22-29 [facility] CenterAnion Hqa9004-10-59 05:40:00* Test Item Value Reference Range Interpretation Comments Anion Gap (test code = 47647-8) 13.6 8-16 [facility] CenterBlood Urea Unhdpxae1444-37-53 05:40:00* Test Item Value Reference Range Interpretation Comments Blood Urea Nitrogen (test code = 3094-0) 12 7-26 [facility] CenterCreatinine2020-03-24 05:40:00* Test Item Value Reference Range Interpretation Comments Creatinine (test code = 2160-0) 0.66 0.57-1.11 [facility] CenterBUN/Creatinine Bdkqc8881-97-08 05:40:00* Test Item Value Reference Range Interpretation Comments BUN/Creatinine Ratio (test code = 3097-3) 18 - [facility] CenterEstimat Glomerular Filtration Rate 2019-09-30 05:40:00* Test Item Value Reference Range Interpretation Comments Estimat Glomerular Filtration Rate (test code = 752860376) > 60 >60 Ranges were taken from the National Kidney Disease Education Program and the [facility] literature.Reference ranges:60 or greater: Kadzhk41-30 ( for 3 consecutive months): Chronic kidney disease 15 or less: Kidney failureHCA [facility] Healthcare Medical CenterGlucose Bqtll8169-09-29 05:40:00* Test Item Value Reference Range Interpretation Comments Glucose Level (test code = ETN4987) 66 74-118 [facility] CenterCalcium Zyskz1579-67-76 05:40:00* Test Item Value Reference Range Interpretation Comments Calcium Level (test code = 26869-9) 8.1 8.4-10.2 [facility] CenterWhite Blood Gogcv7256-15-96 05:21:00* Test Item Value Reference Range Interpretation Comments White Blood Count (test code = 6690-2) 6.54 4.8-10.8 [facility] CenterRed Blood Aigfc3481-46-46 05:21:00* Test Item Value Reference Range Interpretation Comments Red Blood Count (test code = 789-8) 3.65 3.6-5.1 [facility] CenterHemoglobin2020-03-24 05:21:00* Test Item Value Reference Range Interpretation Comments Hemoglobin (test code = 81992-3) 11.3 12.0-16.0 [facility] CenterHematocrit2020-03-24 05:21:00* Test Item Value Reference Range Interpretation Comments Hematocrit (test code = 4544-3) 34.3 34.2-44.1 [facility] CenterMean Corpuscular Inbigz8870-26-63 05:21:00* Test Item Value Reference Range Interpretation Comments Mean Corpuscular Volume (test code = 787-2) 94.0 81-99 [facility] CenterMean Corpuscular Tjinxtkmno3420-02-53 05:21:00* Test Item Value Reference Range Interpretation Comments Mean Corpuscular Hemoglobin (test code = 785-6) 31.0 28-32 [facility] CenterMean Corpuscular Hemoglobin Concent 2019-09-30 05:21:00* Test Item Value Reference Range Interpretation Comments Mean Corpuscular Hemoglobin Concent (test code = 786-4) 32.9 31-35 [facility] CenterRed Cell Distribution Conyz5844-09-77 05:21:00* Test Item Value Reference Range Interpretation Comments Red Cell Distribution Width (test code = 03912-1) 13.4 11.7 -14.4 [facility] CenterPlatelet Phadr5122-81-99 05:21:00* Test Item Value Reference Range Interpretation Comments Platelet Count (test code = 777-3) 234 140-360 [facility] CenterNeutrophils (%) (Auto)2019-09-30 05:21:00 * Test Item Value Reference Range Interpretation Comments Neutrophils (%) (Auto) (test code = 61139-4) 67.3 38.7-80.0 [facility] CenterLymphocytes (%) (Auto)2019-09-30 05:21:00 * Test Item Value Reference Range Interpretation Comments Lymphocytes (%) (Auto) (test code = 736-9) 19.4 18.0-39.1 [facility] CenterMonocytes (%) (Auto)2019-09-30 05:21:00* Test Item Value Reference Range Interpretation Comments Monocytes (%) (Auto) (test code = 5905-5) 10.2 4.4-11.3 [facility] CenterEosinophils (%) (Auto)2019-09-30 05:21:00 * Test Item Value Reference Range Interpretation Comments Eosinophils (%) (Auto) (test code = 713-8) 2.0 0.0-6.0 [facility] CenterBasophils (%) (Auto)2019-09-30 05:21:00* Test Item Value Reference Range Interpretation Comments Basophils (%) (Auto) (test code = 706-2) 0.6 0.0-1.0 [facility] CenterIM GRANULOCYTES %2019-09-30 05:21:00* Test Item Value Reference Range Interpretation Comments IM GRANULOCYTES % (test code = IM GRANULOCYTES %) 0.5 0.0- 1.0 [facility] CenterNeutrophils # (Auto)2019-09-30 05:21:00* Test Item Value Reference Range Interpretation Comments Neutrophils # (Auto) (test code = 751-8) 4.4 2.1-6.9 [facility] CenterLymphocytes # (Auto)2019-09-30 05:21:00* Test Item Value Reference Range Interpretation Comments Lymphocytes # (Auto) (test code = 32088-9) 1.3 1.0-3.2 [facility] CenterMonocytes # (Auto)2019-09-30 05:21:00* Test Item Value Reference Range Interpretation Comments Monocytes # (Auto) (test code = 742-7) 0.7 0.2-0.8 [facility] CenterEosinophils # (Auto)2019-09-30 05:21:00* Test Item Value Reference Range Interpretation Comments Eosinophils # (Auto) (test code = 711-2) 0.1 0.0-0.4 [facility] CenterBasophils # (Auto)2019-09-30 05:21:00* Test Item Value Reference Range Interpretation Comments Basophils # (Auto) (test code = 704-7) 0.0 0.0-0.1 [facility] CenterAbsolute Immature Granulocyte (auto 2019-09-30 05:21:00* Test Item Value Reference Range Interpretation Comments Absolute Immature Granulocyte (auto (lionel t code = Absolute Immature Granulocyte (auto) 0.03 0-0.1 [facility] CenterCreatine Kinase CN5243-31-50 06:37:00* Test Item Value Reference Range Interpretation Comments Creatine Kinase MB (test code = 42500-8) 2.00 0-5.0 [facility] CenterTroponin P0430-87-12 06:37:00* Test Item Value Reference Range Interpretation Comments Troponin I (test code = OEI6972) 0.001 0-0.300 [facility] CenterCreatine Gvggae3910-67-88 06:30:00* Test Item Value Reference Range Interpretation Comments Creatine Kinase (test code = 2157-6) 69 29-168 [facility] CenterTotal Xazfehkzw8633-56-05 06:22:00* Test Item Value Reference Range Interpretation Comments Total Bilirubin (test code = 1975-2) 0.5 0.2-1.2 [facility] CenterAspartate Amino Transf (AST/SGOT) 2019-09-29 06:22:00* Test Item Value Reference Range Interpretation Comments Aspartate Amino Transf (AST/SGOT) (test code = Aspartate Amino Transf (AST/SGOT)) 22 5-34 [facility] CenterAlanine Aminotransferase (ALT/SGPT) 2019-09-29 06:22:00* Test Item Value Reference Range Interpretation Comments Alanine Aminotransferase (ALT/SGPT) (test code = 1742-6) 19 0-55 [facility] CenterTotal Ttnhefz1689-95-94 06:22:00* Test Item Value Reference Range Interpretation Comments Total Protein (test code = 2885-2) 7.1 6.5-8.1 [facility] CenterAlbumin2020-03-23 06:22:00* Test Item Value Reference Range Interpretation Comments Albumin (test code = 1751-7) 3.8 3.5-5.0 [facility] CenterGlobulin2020-03-23 06:22:00* Test Item Value Reference Range Interpretation Comments Globulin (test code = 59255-2) 3.3 2.3-3.5 [facility] CenterAlbumin/Globulin Uqihg5588-89-93 06:22:00 * Test Item Value Reference Range Interpretation Comments Albumin/Globulin Ratio (test code = 1759-0) 1.2 0.8-2.0 [facility] CenterAlkaline Axclqkzkeis9817-61-77 06:22:00* Test Item Value Reference Range Interpretation Comments Alkaline Phosphatase (test code = 6768-6) 61 40-150 [facility] CenterABDOMEN 2 DJCD7606-38-67 05:44:00 [facility] [address] [place] [address] Patient Name: SHRALENE MOORE MR #: [id number] : 1935 Age/Sex: 84/F Req #: [id number] Adm Physician: HAYLEY PETERSEN MD Ordered by: CAREY LOFTON MD Report #: [id number] Location: MED/SURG Room/Bed: [facility] Procedure: 032 04 DX/ABDOMEN 2 VIEW Exam Date: 09/29/19 Exam Time: 0530 REPORT STATUS: Signed EXAM: ABDOMEN 2 VIEW, DATE: 09/29/2019 INDICATION: Small bowel obstruction. COMPARISON: 09/28/2019. FINDINGS: LINES/TUBES: NG/orogastric tube with d istal tip projected on the gastric body, however, sidehole at the level of the GE junction; recommend advancing 2 to 3 cm. BOWEL PATTERN: Compared to the makeup artist KUB of the recent CT examination, small bowel loops appear decreased in caliber. SOFT TISSUES: No abnormal calcifications. No mass effect. LUNG BASES: Clear. BONES: No acute findings. IMPRESSION: Findings s uggesting resolving small bowel dilatation. Signed by: Dr. Bettina Adam M.D. on 09/29/2019 5:50 AM Dictated By: YAMIL Baez MD 0550 Transcrib ed By: JOHN on 09/29/19 0550 COPY TO: CAREY LOFTON MD ABDOMEN-1VIEW (KUB)2019-09-28 10:12:00 [place] [address] Patient Name: SHARLENE MOORE MR #: [id number] : 1935 Age/Sex: 84/F Req #: [id number] Adm Physician: JAZZ CORDOVA MD Ordered by: EMILY ABDULLAHI MD Report #: [id number] Location: MED/SURG Room/Bed: [facility] Procedure: [id number] DX/ ABDOMEN-1VIEW (KUB) Exam Date: 09/28/19 Exam Time: 0 926 REPORT STATUS: Signed Exa m: Abdominal film Clinical History: Enteric tube placement Comparison : None. DISCUSSION: Enteric tube with the distal tip left of midline overlying the left upper quadrant. Side port above the GE junction. IM PRESSION: Enteric tube in satisfactory position overlying the left upper qu adrant Signed by: Dr. Alma Rosa Luna M.D. on 09/28/2019 1 0:13 AM Dictated By: ALMA ROSA LUNA MD 1013 Transcribed By: JOHN on 09/28/19 1013 COPY TO: EMILY ABDULLAHI MD CHEST 2 FFRJT4286-64-62 07:03:00 [place] [address] Patient Name: SHARLENE MOORE MR #: [id number] : 1935 Age/Sex: 84/F Req #: [id number] Adm Physician: Ordered by: ZAINAB CHUNG DO Report #: [id number] Location: ER Room/Bed: Procedure: [id number] DX/CH EST 2 VIEWS Exam Date: 09/28/19 Exam Time: 0620 REPORT STATUS: Signed EXAMINATION: CHEST 2 VIEWS INDICATION: Pain. COMPARISON: 07/19/2018. FINDINGS: TUBES and LINES: None. LUNGS: Lungs are well inflated. Mild b ilateral perihilar peribronchial thickening. There is no evidence of pneumonia or pulmonary edema. PLEURA: No pleural effusion or pneumothorax. HEA RT AND MEDIASTINUM: The cardiomediastinal silhouette is unremarkable. BONES AND SOFT TISSUES: No acute osseous lesion. Soft tissues are unremarkab le. UPPER ABDOMEN: No free air under the diaphragm. IMPRESSION: No acute thoracic abnormality. Signed by: Dr. Bettina Adam M.D. on 09/28/2019 7:04 AM Dictated By: YAMIL ADAM MD, MD 3 Transcribed By: JOHN on 703 COPY TO: ZAINAB CHUNG DO CT ABDOMEN/PELVIS W 2019-09-28 06:48:00 [place] [address] Patient Name: SHARLENE MOORE MR #: [id number] : 1935 Age/Sex: 84/F Req #: [id number] Adm Physician: Ordered by: ZAINAB CHUNG DO Report #: [id number] Location: ER Room/Bed: Procedure: [id number] CT/CT ABDOMEN/PELVIS W Exam Date: 09/28/19 Exam Time: 0620 REPORT STATUS: Signed EXAM: CT Abdomen and Pelvis WITH contrast INDICATION: Epigastric pain. COMPARISON: 04/28/19. TECHNIQUE: Abdomen and pelvis were scanned utilizing a multidetector helical scanner from the lung base to the pubic symphysis after administration of IV contrast. Coronal and sagittal reformations were obtained. Routine pr otocol was performed. Scan was performed when during portal venous phase. IV CONTRAST: 100 cc Isovue 300 ORAL CONTRAST: Water RADIATION DOSE: Total DLP: 259.58 mGy*cm Estimated effe ctive dose: (DLP x 0.015 x size factor) mSv COMPLICATIONS: None FINDINGS: LINES and TUBES: None. LOWER THORAX: Unremarkable H EPATOBILIARY: Cholecystectomy. GALLBLADDER: No radio-opaque stones or sludg e. No wall thickening. SPLEEN: No splenomegaly. PANCREAS: No focal m asses or ductal dilatation. ADRENALS: No adrenal nodules KIDNEYS /URETERS: Kidneys enhance symmetrically. No hydronephrosis. Small low-attenua tion lesions in the left kidney are too small to be characterize, however, mos t suggestive of cysts. 1.4 cm cyst in the lower pole of the left kidney. No st ones. GI TRACT: Mild dilatation of multiple small bowel loops with a decomp ressed, narrow small bowel loop in the anterior pelvis on image 45 series 2. T here is however mild distention of the small bowel loops proximal and distal t o it. The compressed small bowel loop may represent stricture, however, evalua tion is limited due to the lack of contrast. There is fluid attenuation throug hout the colon. Appendix is nonvisualized. PELVIC ORGANS/BLADDER: The uterus is absent. LYMPH NODES: No lymphadenopathy. VESSELS: There is moderate atherosclerotic disease in the aorta and major arterial branches. PERITONEUM / RETROPERITONEUM: No free air or fluid. BONES: There are degenerative changes in the lumbar spine. SOFT TISSUES: Unremarkable. IMPRESSION: 1. Findings concerning for small bowel obstruction, possibly partial with transitional point in the anterior pelvis. Recommend surgical c onsultation. Signed by: Dr. Bettina Adam M.D. on 09/28/2019 7:01 AM Dictated By: YAMIL ADAM MD, MD 0 Transcribed By: JOHN on 09/28/19700 COPY TO: ZAINAB CHUNG DO Urine [id number] 06:39:00* Test Item Value Reference Range Interpretation Comments Urine Color (test code = 5778-6) YELLOW YELLOW [facility] [id number] 06:39:00* Test Item Value Reference Range Interpretation Comments Urine Clarity (test code = 99971-0) CLEAR CLEAR [facility] Specific Dgikgqj9462-70-66 06:39:00 * Test Item Value Reference Range Interpretation Comments Urine Specific [place] (test code = 5811-5) >=1.030 1.010-1.02 5 [facility] [id number] 06:39:00* Test Item Value Reference Range Interpretation Comments Urine pH (test code = 89654-5) 5.5 5-7 [facility] Leukocyte Atzorlfu2278-71-95 06:39:00* Test Item Value Reference Range Interpretation Comments Urine Leukocyte Esterase (test code = 5799-2) SMALL NEGATIVE [facility] Ypffvrf8514-83-48 06:39:00* Test Item Value Reference Range Interpretation Comments Urine Nitrite (test code = 69154-1) NEGATIVE NEGATIVE [facility] Zaqjfns8972-21-90 06:39:00* Test Item Value Reference Range Interpretation Comments Urine Protein (test code = 5804-0) 1+ NEGATIVE [facility] Glucose (UA)2019-09-28 06:39:00* Test Item Value Reference Range Interpretation Comments Urine Glucose (UA) (test code = 2349-9) NEGATIVE NEGATIVE [facility] Kxdnowd1563-90-47 06:39:00* Test Item Value Reference Range Interpretation Comments Urine Ketones (test code = 13718-0) 1+ NEGATIVE [facility] Pzdpdnjzunsl5616-08-48 06:39:00* Test Item Value Reference Range Interpretation Comments Urine Urobilinogen (test code = 31654-5) 0.2 0.2-1 [facility] Odcrhblhj6299-49-79 06:39:00* Test Item Value Reference Range Interpretation Comments Urine Bilirubin (test code = 1978-6) SMALL NEGATIVE [facility] Jjbiq0542-36-14 06:39:00* Test Item Value Reference Range Interpretation Comments Urine Blood (test code = 50014-5) TRACE NEGATIVE [facility] [id number] 06:39:00* Test Item Value Reference Range Interpretation Comments Urine WBC (test code = 5821-4) 6-10 0-5 [facility] [id number] 06:39:00* Test Item Value Reference Range Interpretation Comments Urine RBC (test code = 26447-6) 6-10 0-5 [facility] Vxdtjhol8326-13-30 06:39:00* Test Item Value Reference Range Interpretation Comments Urine Bacteria (test code = 04400-6) RARE NONE [facility] Epithelial Uhham7353-67-07 06:39:00 * Test Item Value Reference Range Interpretation Comments Urine Epithelial Cells (test code = 17796-6) FEW NONE [facility] CenterLipase2020-03-22 05:57:00* Test Item Value Reference Range Interpretation Comments Lipase (test code = 3040-3) 7 8-78 [facility] CenterCT [facility]PELVIS [id number] 16:36:00 [facility] [address] [place] [address] Patient Name: SHARLENE MOORE MR #: [id number] : 1935 Age/Sex: 84/F Req #: [id number] Adm Physician: Ordered by: FLORENCE HOOPER MD Report #: [id number] Location: ER Room/Bed: Procedure: [id number] CT/CT ABDOMEN/PELVIS W Exam Date: 04/28/19 Exam Time : 1540 REPORT STATUS: Signed EXA M: CT Abdomen and Pelvis WITH intravenous contrast INDICATION: Abdominal pain, suprapubic pain COMPARISON: None. TECHNIQUE: Abdomen and pelvis were scanned utilizing a multidetector helical scanner from the lung base to t he pubic symphysis after administration of IV contrast. Coronal and sagittal r eformations were obtained. Routine protocol was performed. Scan was performed during portal venous phase. IV CONTRAST: 100mL of Isovue 370 ORAL CO NTRAST: Gastrografin RADIATION DOSE: Total DLP: 216.2 mGy*cm Dose m odulation, iterative reconstruction, and/or weight based adjustment of the mA/ kV was utilized to reduce the radiation dose to as low as reasonably achievabl e. FINDINGS: LOWER THORAX: Minimal bibasilar subsegmental atelectasis. HEPATOBILIARY: Diffuse hepatic steatosis. No focal liver lesions. No biliary ductal dilation. Status post cholecystectomy. SPLEEN: No splenomegaly. PANCREAS: No focal masses or ductal dilatation. ADRENALS: No adrenal nodul es. KIDNEYS/URETERS: No hydronephrosis, stones, or solid mass lesions. Left lo wer pole exophytic 1.5 cm cyst. PELVIC ORGANS/BLADDER: Status post hysterect dina. PERITONEUM / RETROPERITONEUM: No free air or fluid. LYMPH NODES: No lymphadenopathy. VESSELS: Scattered atherosclerotic calcifications of the linda neurysmal abdominal aorta and major branches. GI TRACT: Minimal diverticu losis. No CT evidence of diverticulitis. No abnormal bowel wall thickening. No bowel obstruction. Status post appendectomy. BONES AND SOFT TISSUES: Unrem arkable. IMPRESSION: Minimal diverticulosis. No CT evidence of diverticu litis. Diffuse hepatic steatosis. Signed by: Coy Churchill MD on 019 4:54 PM Dictated By: COY CHURCHILL MD 53 Transcribed By: JOHN on 04/28/191653 COPY TO: FLORENCE HOOPER MD URINALYSIS [id number] 22:55:00* Test Item Value Reference Range Interpretation Comments UA COLOR (test code = COLU) YELLOW YELLOW UA APPEARANCE (test code = APPU) CLEAR CLEAR UA GLUCOSE DIPSTICK (test code = DGLUU) norm mg/dL NEGATIVE UA BILIRUBIN DIPSTICK (test code = BILU) NEGATIVE mg/dL NEGATIVE UA KETONE DIPSTICK (test code = KETU) neg mg/dL NEGATIVE UA SPECIFIC GRAVITY (test code = SGU) 1.020 1.001-1.035 UA BLOOD DIPSTICK (test code = LASHAY) 25 (1+) Prosper/uL NEGATIVE A UA PH DIPSTICK (test code = GENNY) 5.0 5.0-8.0 UA PROTEIN DIPSTICK (test code = PROU) 30 (1+) mg/dL Neg-15 A UA UROBILINIOGEN DIPSTICK (test code = URO) norm mg/dL 0.0-0.2 UA NITRITE DIPSTICK (test code = MATTIE) NEGATIVE NEGATIVE UA LEUKOCYTE ESTERASE DIPSTICK (test code = LEUU) 500 Jerald/uL (3+) u L NEGATIVE A UA WBC (test code = WBCU) 11-20 per HPF 0-5 A UA RBC (test code = RBCU) 0-3 per HPF 0-5 UA EPITHELIAL CELLS (test code = EPIU) Few (2-5/hpf) per HPF Few UA BACTERIA (test code = BACU) MODERATE per HPF NONE A Urine Source? Clean CatchKNEE THREE VIEWS [id number] 14:30:00 [place] [id number] [place] [address] Patient Name: SHARLENE MOORE MR #: [id number] : 1935 Age/Sex: 84/F Req #: [id number] Adm Physician: Ordered by: FAVIOLA BAEZ Report #: [id number] Location: [facility] Room/Bed: Procedure: [id number] DX/KN EE THREE VIEWS BILATERAL Exam Date: 03/21/19 Exam Ti me: 1310 REPORT STATUS: Signed E xam: Bilateral knee 3 views Clinical history: Knee pain Findings: Ther e is no evidence of acute fracture or malalignment. Mild narrowing of the left patellofemoral space is noted. In addition, chondrocalcinosis of bilateral kn ee joints are noted likely degenerative in nature. The soft tissue is unremark able. Impression: 1. No radiographic evidence of acute osseous injury. De generative changes as noted. Signed by: Dr. Darien Quiñones MD on 03/21/2019 2:31 PM Dictated By: JAEL QUIÑONES MD 1431 Transcribed By: JOHN on 03/21/19 1431 COPY TO: FAVIOLA BAEZ (NON STAFF) SP LUMBAR AP LATERAL [id number] 14:26:00 [place] [address] Patient Name: SHARLENE MOORE MR #: [id number] : 1935 Age/Sex: 84/F Req #: [id number] Adm Physician: Ordered by: FAVIOLA BAEZ Report #: [id number] Location: RAD Room/Bed: Procedure: [id number] DX/SP LUMBAR AP LATERAL 2-3VWS Exam Date: 03/21/19 Exam Time: 1310 REPORT STATUS: Signed Exam: Lumbar spine series Clinical history: Back pain Findings: There is no evidence of acute fracture or malalignment. Degenerative disc disease is noted at T11-T12 and L5-S1 levels with loss in disc heights and endplate sc lerosis. Atherosclerotic calcification of the aorta is also noted. Impressi on: 1. No radiographic evidence of acute osseous injury. Degenerative disc dis ease as described. Signed by: Dr. Darien Quiñones MD on 03/21/2019 2:27 PM Dictated By: JAEL QUIÑONES MD 26 Transcribed By: JOHN on 03/21/191426 COPY TO: FAVIOLA RODRIGUEZ (NON STAFF) CERVICAL 3 [id number] 14:23:00 [place] [address] Patient Name: SHARLENE MOORE MR #: [id number] : 1935 Age/Sex: 84/F Req #: [id number] Adm Physician: Ordered by: FAVIOLA BAEZ Report #: [id number] Location: RAD Room/Bed: Procedure: [id number] DX/CE RVICAL 3 VIEWS Exam Date: 03/21/19 Exam Time: 1310 REPORT STATUS: Signed Exam: Cervi sunday spine series Clinical history: Neck pain Findings: There is no julian dence of acute fracture or malalignment. Mild degenerative changes are noted a t C5-6 and C7-T1 levels with loss in disc height. The prevertebral soft tissue is unremarkable. Impression: 1. No radiographic evidence of acute osseous injury. Degenerative disc disease as described. Signed by: Dr. Darien herrera MD on 03/21/2019 2:24 PM Dictated By: JAEL QUIÑONES MD Electronical ly Signed By: JAEL QUIÑONES MD on 03/21/191423 Transcribed By: JOHN on 1423 COPY TO: FAVIOLA BAEZ (NON STAFF) CHEST SINGLE (PORTABLE)2019-02-10 20:14:00 [place] [address] Patient Name: SHARLENE MOORE MR #: [id number] : 1935 Age/Sex: 84/F Req #: [id number] Adm Physician: Ordered by: EMILY ABDULLAHI MD Report #: [id number] Location: ER Room/Bed: Procedure: [id number] DX/C HEST SINGLE (PORTABLE) Exam Date: 02/10/19 Exam Time : 1845 REPORT STATUS: Signed Exa mination: Single AP view of the chest. COMPARISON: Portable chest 07/19/2018 INDICATION: Doesn't feel well, fatigue, bodyaches IMPRESSION: 1. Lines and Tubes: None 2. Lungs are grossly clear. No consolidation or effusion. 3. Cardiomediastinal silhouette is normal. Pulmonary vasculature is normal. 4. No acute bony abnormalities. Signed by: Dr. Albert lake M.D. on 02/10/2019 8:14 PM Dictated By: ALBERT EVERETT MD Electronic ally Signed By: ALBERT EVERETT MD on 02/10/192013 Transcribed By: JOHN on 0 02/10/192013 COPY TO: EMILY ABDULLAHI MD Thyroid Stimulating Hormone (TSH)2019-02-10 19:20:00* Test Item Value Reference Range Interpretation Comments Thyroid Stimulating Hormone (TSH) (test code = 60605-1) 1.311 0.350-4.940 [facility] CenterProthrombin [id number] 18:49:00* Test Item Value Reference Range Interpretation Comments Prothrombin Time (test code = 5902-2) 12.1 11.9-14.5 [facility] CenterProthromb Time International Ratio 2019-02-10 18:49:00* Test Item Value Reference Range Interpretation Comments Prothromb Time International Ratio (test code = 6301-6) 0.85 Oral Anticoagulant Therapy INR Values:1. Low Intensity Therapy 1.5 - 2.02 . Moderate Intensity Therapy 2.0 - 3.03. High Intensity Therapy(1) 2.5 - 3. 54. High Intensity Therapy(2) 3.0 - 4.05. Panic Value INR > 5.0 [facility] CenterActivated Partial Thromboplast Time 2019-02-10 18:49:00* Test Item Value Reference Range Interpretation Comments Activated Partial Thromboplast Time (test code = 24799-7) 29.7 23.8-35.5 [facility] CenterURINALYSIS [id number] 12:37:00* Test Item Value Reference Range Interpretation Comments UA COLOR (test code = COLU) YELLOW YELLOW UA APPEARANCE (test code = APPU) CLEAR CLEAR UA GLUCOSE DIPSTICK (test code = DGLUU) norm mg/dL NEGATIVE UA BILIRUBIN DIPSTICK (test code = BILU) NEGATIVE mg/dL NEGATIVE UA KETONE DIPSTICK (test code = KETU) neg mg/dL NEGATIVE UA SPECIFIC GRAVITY (test code = SGU) 1.010 1.001-1.035 UA BLOOD DIPSTICK (test code = LASHAY) neg Prosper/uL NEGATIVE UA PH DIPSTICK (test code = GENNY) 7.0 5.0-8.0 UA PROTEIN DIPSTICK (test code = PROU) neg mg/dL Neg-15 UA UROBILINIOGEN DIPSTICK (test code = URO) norm mg/dL 0.0-0.2 UA NITRITE DIPSTICK (test code = MATTIE) NEGATIVE NEGATIVE UA LEUKOCYTE ESTERASE DIPSTICK (test code = LEUU) 25 Jerald/uL (Tra ce) uL NEGATIVE A UA WBC (test code = WBCU) 3-5 per HPF 0-5 UA RBC (test code = RBCU) 0-3 per HPF 0-5 UA EPITHELIAL CELLS (test code = EPIU) FEW per HPF Few UA BACTERIA (test code = BACU) RARE per HPF NONE Urine Source? Clean CatchURINALYSIS [id number] 12:29:00* Test Item Value Reference Range Interpretation Comments UA COLOR (test code = COLU) YELLOW YELLOW UA APPEARANCE (test code = APPU) CLEAR CLEAR UA GLUCOSE DIPSTICK (test code = DGLUU) norm mg/dL NEGATIVE UA BILIRUBIN DIPSTICK (test code = BILU) NEGATIVE mg/dL NEGATIVE UA KETONE DIPSTICK (test code = KETU) neg mg/dL NEGATIVE UA SPECIFIC GRAVITY (test code = SGU) 1.010 1.001-1.035 UA BLOOD DIPSTICK (test code = LASHAY) neg Prosper/uL NEGATIVE UA PH DIPSTICK (test code = GENNY) 7.0 5.0-8.0 UA PROTEIN DIPSTICK (test code = PROU) neg mg/dL Neg-15 UA UROBILINIOGEN DIPSTICK (test code = URO) norm mg/dL 0.0-0.2 UA NITRITE DIPSTICK (test code = MATTIE) NEGATIVE NEGATIVE UA LEUKOCYTE ESTERASE DIPSTICK (test code = LEUU) 25 Jerald/uL (Tra ce) uL NEGATIVE A UA WBC (test code = WBCU) per HPF 0-5 UA RBC (test code = RBCU) per HPF 0-5 UA EPITHELIAL CELLS (test code = EPIU) per HPF Few UA BACTERIA (test code = BACU) per HPF NONE Urine Source? Clean CatchCT ABDOMEN/PELVIS [id number] 17:09:00 [place] [id number] [place] [address] Patient Name: SHARLENE MOORE MR #: [id number] : 1935 Age/Sex: 83/F Req #: [id number] Adm Physician: Ordered by: DAVIDA ENAMORADO MD Report #: [id number] Location: ER Room/Bed: Procedure: [id number] CT /CT ABDOMEN/PELVIS WO Exam Date: 08/11/18 Exam Time: 1642 REPORT STATUS: Signed EXAM: CT Abdomen and Pelvis WITHOUT contrast INDICATION: Pain COMPARIS ON: 07/16/2018 CT, no report available. TECHNIQUE: Abdomen and Pelvis was sc anned utilizing a multidetector helical scanner without the use of IV contrast . Coronal and sagittal reformations were obtained. IV CONTRAST: None COMPLICATIONS: None RADIATION DOSE: Tota l DLP: 230 mGy*cm Estimated effective dose: (DLP x 0.015 x size factor) m Sv CTDIvol has been reviewed. It is below the limits set by the Radiation Protocol Committee (RPC). Appropriate CT dose reduction techniques were uti lized. FINDINGS: Abdomen: Lung Bases: Atelectasis. 3 x 6 mm nodule left lower lobe series 3 image 61 Solid Organs: Evaluation limited by lack of IV contrast. Mild bilateral perinephric stranding statistically sen escent. No renal or ureteral calculi. Remainder nonenhanced exam unremarkable. Upper GI Tract: No small bowel obstructive changes. Vascularity: Mode rate aortic vascular calcifications with no aneurysm. Lymph Nodes: No suspi cious adenopathy. Other: Tiny fat-containing ventral wall hernia with addit ional postsurgical changes ventral wall. Pelvis: Bladder: Unr emarkable. Other: Uterus absent. Colon: No acute colonic findings. Bones: Degenerative changes. IMPRESSION: 1. Within limitations of nonenhanced exam, no definite acute finding. No hydronephrosis or renal calcul i. No definite ureteral calculi although presumed vascular calcifications are in close proximity to distal ureters, somewhat limiting evaluation. 2. O ther stable findings as above. Signed by: Dr. Sarai Dias MD on 08/11/2018 5:13 PM Dictated By: SARAI DIAS MD 12 Transcribed By: JOHN on 08/11/181712 COPY TO: DAVIDA ENAMORADO MD BONE DXA DUAL [id number] 15:50:00 [place] [address] Patient Name: SHARLENE MOORE MR #: [id number] : 1935 Age/Sex: 83/F Req #: [id number] Adm Physician: Ordered by: LIGIA WEST DO Report #: [id number] Location: DX Room/Bed: Procedure: [id number] DX/B ONE DXA DUAL ENERGY Exam Date: Exam Time: REPORT STATUS: Signed EXAM: BONE MINERAL DENSITY HISTORY: Bone mineralization evaluation COMPARISON: None DISCU SSION: Evaluation of the left hip and lumbar spine was performed utilizing [employer] Hologic bone densitometer. The study is technically adequate. The jami ent's fracture risk is compared to an age-matched control. The patient denies prior surgery/fracture of the spine, hips or forearm. Left hip femoral neck bone mineral density: 0.82 g/cm2, T-score is -0.2, Z-score is 2.3. Left h ip total bone mineral density: 0.89 g/cm2, T-score is -0.4, Z-score is 1.9. Lumbar spine total bone mineral density: 0.95 gm/cm2, T-score is -0.9, Z-score is 1.9. Impression: Bone mineralization by WHO Classification is nor mal, the fracture risk is not increased. Signed by: Edilberto Alcala on 08/05/2018 3:51 PM Dictated By: ALMA ROSA LUNA MD 50 Transcribed By: JOHN on 1550 COPY TO: JENNALIGIA DO CHEST SINGLE (PORTABLE) 2018-07-19 18:37:00 [place] [address] Patient Name: SHARLENE MOORE MR #: [id number] : 1935 Age/Sex: 83/F Req #: [id number] Adm Physician: Ordered by: STELLA FUNES MD Report #: [id number] Location: ER Room/Bed: Procedure: [id number] DX /CHEST SINGLE (PORTABLE) Exam Date: 07/19/18 Exam Ti me: 1810 REPORT STATUS: Signed E XAMINATION: CHEST SINGLE (PORTABLE) INDICATION: CHEST PAIN TAMIKO RISON: None FINDINGS: TUBES and LINES: None. LUNGS: Mild left basilar subsegmental atelectasis. There is no evidence of pneumonia or pulmon letha edema. PLEURA: No pleural effusion or pneumothorax. HEART AND MED IASTINUM: The cardiomediastinal silhouette is unremarkable. BONES AND SOFT TISSUES: No acute osseous lesion. UPPER ABDOMEN: No free air under t he diaphragm. IMPRESSION: No acute thoracic abnormality. Signed by: Dr. Bettina Adam M.D. on 07/19/2018 6:38 PM Dictated By: YAMIL ADAM MD, MD 37 Transcribed By: JOHN on 07/19/181837 COPY TO: STELLA FUNES MD CT ABDOMEN/PELVIS [id number] 14:47:00 [place] [address] Patient Name: SHARLENE MOORE MR #: [id number] : 1935 Age/Sex: 83/F Req #: [id number] Adm Physician: Ordered by: LIGIA WEST DO Report #: [id number] Location: CT Room/Bed: Procedure: [id number] CT/C T ABDOMEN/PELVIS W Exam Date: 07/16/18 Exam Time: 14 30 REPORT STATUS: Signed EXAM: C T Abdomen and Pelvis WITH contrast INDICATION: [id number] LOWER ABD PAIN/DIVERTICULOSIS COMPARISON: None. TECHNIQUE: Abdomen and pelv is were scanned utilizing a multidetector helical scanner from the lung base t o the pubic symphysis after administration of IV contrast. Coronal and sagitta l reformations were obtained. Dose modulation, iterative reconstruction, and/o r weight based adjustment of the mA/kV was utilized to reduce the radiation do se to as low as reasonably achievable. Routine protocol was performed. Scan wa s performed when during portal venous phase. IV CONTRAST: 100 mL of Isovue-370 ORAL CONTRAST: Water COMPLICATIONS: None RADIATION DOSE: Total DLP: 590.30 mGy*cm Estimated effective dose: (DLP x 0.015 x size factor) mSv CTDIvol has been reviewed. It is below the limits set by the Radiation Protocol Committee (RPC). FINDINGS: LINES and TUBES: None. LOWER THORAX: Unremarkable HEPATOBILIARY: No focal hepatic lesions. No biliary ductal dilation. GALLBLADDER: Not v isualized. SPLEEN: No splenomegaly. PANCREAS: No focal masses or duct al dilatation. ADRENALS: No adrenal nodules KIDNEYS/URETERS: Kid neys enhance symmetrically. No hydronephrosis. Mildly hyperdense exophytic le ft inferior pole hypodensity, could represent a complex cyst. There are additi onal left renal subcentimeter hypodensities which are too small to characteriz e. No stones. GI TRACT: No abnormal distention, wall thickening, or eviden ce of bowel obstruction. Few scattered colonic diverticula without evidence o f diverticulitis. Appendix is surgically absent. PELVIC ORGANS/BLADDER: Status post hysterectomy. Bladder is unremarkable. LYMPH NODES: No lymphade nopathy. VESSELS: Moderate aortoiliac atherosclerotic disease. PERITON EUM / RETROPERITONEUM: No free air or fluid. BONES: No acute osseous abnorm alities. Degenerative changes of the hips and spine, most notable at L5-S1. SOFT TISSUES: Evidence of abdominal wall hernia repair. IMPR ESSION: 1. No acute inflammatory process in the abdomen/pelvis. 2. Mildly hyperdense left renal inferior pole lesion is probably a complex cyst. Renal ultrasound can be obtained for further evaluation. Signed by: Dr. Jenny alarcon MD on 07/16/2018 3:05 PM Dictated By: JENNY WITT MD Electronicall y Signed By: JENNY WITT MD on 07/16/18 1504 Transcribed By: JOHN on 07/16 1505 COPY TO: LIGIA WEST DO RENAL RETROPERITONEAL COMP [place] [address] Patient Name: SHARLENE MOORE MR #: [id number] : 0 1935 Age/Sex: 82/F Req #: [id number] Adm Physician: Ordered by: JILLIAN RINCON MD Report #: [id number] Location: Room/ Bed: Procedure: [id number] US/US RENAL RETROPERITONEAL COMP Exam Date: Exam Time: REPORT STATUS: S igned PROCEDURE: US RETROPERITONEAL ( KIDNEY ). [facility] COM[facility]TE, 05/24/2016, 10:15. INDICATIO NS: Bladder Infection TECHNIQUE: Ultrasound examination was performed of the kidneys and bladder. FINDINGS: RIGHT KIDNEY: 9.4 cm in le ngth. No solid or cystic mass, echogenic calculi, or hydronephrosis. Normal parenchymal echogenicity. LEFT KIDNEY: 10.5 cm in length. No solid or c ystic mass, echogenic calculi, or hydronephrosis. Normal parenchymal echogeni city. Mild prominence of the left renal pelvis likely a small extrarenal pelv is without dilatation of the calyceal system. BLADDER: Normal. CONCLUSION: Small left extrarenal pelvis, otherwise unremarkable renal ultra sound. Bettina ADAM M.D. DICTATED BY: Bettina ADAM M.D. ON 11/28/2017 AT 13:20 ELECTRONICALLY APPROVED BY: Bettina ADAM M.D. ON 11/28/2017 AT 13:20 Dictated By: YAMIL ADAM MD, MD 1320 Transcribed By: ALIN on 11/28/17 1320 COPY TO: JILLIAN RINCON MD
[2019-11-24 13:30] VITALS: BP 119/70
--- NOTE | 2019-11-24 13:45 | Operative Report ---
DATE OF PROCEDURE: 11/24/2019 SURGEON: Calvin Meng MD PROCEDURE: EGD with polypectomy and biopsies. INDICATIONS FOR EGD: Upper abdominal pain, bloating, black stools. MEDICATIONS: The patient was done under MAC, please see anesthesiologist's note. PROCEDURE IN DETAIL: With the patient in the left lateral decubitus position, a flexible fiberoptic Olympus gastroscope was introduced into the esophagus under direct visualization without any difficulty. There was some patchy erythema noted in distal esophagus. The scope was then advanced with ease into the stomach. Mucosa overlying the body appeared somewhat atrophic and biopsies were obtained to rule out atrophic gastritis. Two minute polyps were partially excised with the cold biopsy forceps from the lesser curvature of the body. Biopsies were obtained from the antrum and sent to stain for H. pylori. Pylorus was of normal contour and shape, was intubated with ease and the scope was advanced all the way to the second portion of the duodenum. Biopsies were obtained from the proximal second portion and the duodenal bulb to rule out sprue. The scope was then withdrawn back into the stomach and retroflexed, and mucosa overlying the fundus and the cardia grossly appeared to be within normal limits. The scope was then straightened out, it was subsequently withdrawn, and the patient tolerated the procedure well. IMPRESSION: 1. Distal esophagitis, mild. 2. Rule out atrophic gastritis. 3. Gastric polyps, body, lesser curvature, partially excised with the cold biopsy forceps. 4. Rule out sprue. PLAN: Follow up histology. Initiate Protonix 40 mg one p.o. q.a.m. before meals and Carafate 1 g p.o. before meals t.i.d. and at bedtime. Calvin Meng MD [facility] [place]/MODL /[id number] cc: Salvatore Silverio DO
== END | disposition home or self-care (01) ==
LOC: OR 08:07
PROVIDERS: ATTEND Internal Medicine Gastroenterology
DX: K29.50 Unspecified chronic gastritis without bleeding (principal); K31.7 Polyp of stomach and duodenum; K29.80 Duodenitis without bleeding; K31.89 Other diseases of stomach and duodenum; K20.9 Esophagitis, unspecified; K59.00 Constipation, unspecified; I10 Essential (primary) hypertension; E11.9 Type 2 diabetes mellitus without complications; Z88.6 Allergy status to analgesic agent; Z88.8 Allergy status to other drugs, medicaments and biological substances; Z01.810 Encounter for preprocedural cardiovascular examination; Z01.812 Encounter for preprocedural laboratory examination; Z11.59 Encounter for screening for other viral diseases; Z79.84 Long term (current) use of oral hypoglycemic drugs
CPT/HCPCS: 36415 ×2; 43239; 82948; 85025; 87635; 93005; J2704; J3010

== ENCOUNTER 2019-12-15 07:07 | Emergency (ER) | payer MEDICARE, OTHER ==
[~2019-12-15] VITALS: Ht 149.9 cm; Wt 58.5 kg
[~2019-12-15 07:07] MED LIST changes: -FENTANYL CITRATE/PF 100MCG/2 ML INJ ONE; -GLYCOPYRROLATE INJ 0.2 MG/ML VIAL ONE; -PROPOFOL IV EMULSION 10 MG/ML 20 ML VIAL ONE
--- OUTSIDE RECORDS SUMMARY | 2019-12-15 07:11 | XMS REPORT | Continuity of Care Document ---
Author Author Joseph Altmanann [employer] ([place]), SHARLENE Mendoza Organization [employer] Address Unknown Phone Unavailable Care Team Providers Care Authorizer Name Role Phone [employer] Information [employer] Unavailable Un available Problems Problem Status Onset Date Classification Date Reported Comments Source DX: M25.512-PAIN IN LEFT SHOULDER Active 01/30/2019 [facility] OSTEOPOROSIS Active 03/11/2014 [facility] ROUTINE SCREENING Active 02/01/2012 [facility] ABNORMAL CHEST XRAY Active 08/21/2011 [facility] INCISIONAL HERNIA [id number] Active 07/28/2011 [facility] INCISIONAL HERNIA Active 07/28/2011 [facility] ABD PAIN Active 05/09/2011 [facility] DM - Diabetes mellitus Active Problem 08/29/2011 [facility] GERD - Gastro-esophageal reflux disease Active Problem 08/29/2011 [facility] HTN - Hypertension Active Problem 08/29/2011 [facility] Incisional hernia Active Problem 08/29/2011 [facility] Arthritis (disorder) Active Problem 09/04/2019 [facility] [place] Diabetes mellitus (disorder) A ctive Problem [facility] [place] Gastroesophageal reflux disease (disorder) Active Problem 09/04/2019 [facility] [place] Hypertensive disorder, systemic arterial (disorder) Active Problem 09/04/2019 MARTIND [place] Incisional hernia (disorder) A ctive Problem [facility] [place] Arthritis Active Problem 08/29/2011 [facility] INCISIONAL HERNIA Active [facility] Medications Medication Details Route Status Patient Instructions Ordering Provider Order Date Source Restoril 15 mg, 1 cap, Route: PO, Drug form: CAP, Bedtime, PRN Sleep, Start date: 08/26/11 12:04:00, Duration: 30 day, Stop date: 09/25/11 12:03:00 PO No Longer Active Gelber 08/26/2011 [facility] Crestor 20 mg, 2 tab, Route: P O, Drug form: TAB, Bedtime, Start date: 08/25/11 21:00:00, Duration: 30 day, Stop date: 09/23/11 21:00:00 PO No Longer Active Hadad 08/26/2011 [facility] tramadol 50 mg oral tablet 50 mg, 1 tab, Route: PO, Drug form: TAB, Q4H, PRN Pain, Start date: 08/25/11 17:31:00, Duration: 30 day, Stop date: 09/24/11 17:30:00 PO No Longer Active Hadad 08/25/2011 [facility] Tylenol 325 mg, 1 tab, Route: PO, Drug form: TAB, Q4H, PRN Pain, Start date: 08/25/11 17:31:00, Duration: 30 day, Stop date: 09/24/11 17:30:00 PO No Longer Active Hadad 08/25/2011 [facility] Ultracet oral tablet 1 tab, Ro brody: PO, Drug Form: TAB, Q4H, PRN Pain, Start date: 08/25/11 11:05:00, Duration: 30 day, Stop date: 09/24/11 11:04:00 PO No Longer Active Hadad 08/25/2011 [facility] Milk of Magnesia 60 ml, Route: PO, Drug Form: SUSP, ONCE, Start date: 08/25/11 11:04:00, Stop date: 08/25/11 11:04:00 PO No Longer Active Hadad 08/25/2011 [facility] Diovan 80 mg, 1 tab, Route: PO , Drug form: TAB, Daily, Start date: 08/25/11 9:00:00, Duration: 30 day, Stop date: 09/23/11 9:00:00 PO No Longer Active Hadad 08/25 [facility] metFORmin 500 mg oral tablet 5 00 mg, 1 tab, Route: PO, Drug form: TAB, Breakfast, Start date: 08/25/11 8:00:00, Duration: 30 day, Stop date: 09/23/11 8:00:00 PO No Longer Active Hadad 08/25/2011 [facility] acetaminophen-hydrocodone 325 mg-5 mg oral tablet 1 tab, Route: PO, Drug Form: TAB, Q4H, PRN Pain, Start date: 08/24/11 13:06:00, Duration: 30 day, Stop date: 09/23/11 13:05:00 PO No Longer Active Hadad 08/24/2011 [facility] Dilaudid 0.5 mg, 0.25 mL, Rout e: IVP, Drug form: INJ, Q3H, PRN Severe Pain, Start date: 08/24/11 13:06:00, Duration: 30 day, Stop date: 09/23/11 13:05:00 IVP No Longer Active Hadad 08/24/2011 [facility] NovoLog FlexPen 18 unit, 0.18 mL, Route: SUB-Q, Drug form: SOLN, Q6H, PRN Blood Glucose Results, Start date: 08/24/11 13:04:00, Duration: 30 day, Stop date: 09/23/11 13:03:00 SUB-Q No Longer Active Hadad 08/24/2011 [facility] glucagon 1 mg, Route: IM, Drug form: PDR/INJ, PRN, PRN Blood Glucose Results, Start date: 08/24/11 13:04:00, Duration: 30 day, Stop date: 09/23/11 14:03:00 IM No Longer Active Hadad 08/24/2011 [facility] Dextrose 50% in Water IV 50 mL , Route: IVP, PRN, Blood Glucose Results, Start date: 08/24/11 13:04:00, Duration: 30 day, Stop date: 09/23/11 14:03:00 IVP No Longer Active Hadad 08/24/2011 [facility] NovoLog FlexPen 9 unit, 0.09 m L, Route: SUB-Q, Drug form: SOLN, Q6H, PRN Blood Glucose Results, Start date: 08/24/11 13:03:00, Duration: 30 day, Stop date: 09/23/11 13:02:00 SUB-Q No Longer Active Hadad 08/24/2011 [facility] Crestor 20 mg oral tablet 20 m g, 1 tab, Bedtime, Substitution Allowed On Hold 08/24/2011 [facility] metFORmin 500 mg oral tablet 5 00 mg, 1 tab, PO, Daily, Substitution Allowed, with breakfastwith breakfast PO On Hold 08/24/2011 [facility] Unasyn 3 gm, 1 ea, Route: IVPB , ABXQ6H, Start date: 08/23/11 18:00:00, Duration: 24 hr, Stop date: 08/24/11 12:00:00 IVPB No Longer Active Hadad 08/24/2011 [facility] Protonix 40 mg, Route: IVP, Dr ug form: INJ, Before Dinner, Start date: 08/23/11 18:00:00, Duration: 30 day, Stop date: 09/22/11 16:30:00 IVP No Longer Active Hadad 08/24/2011 [facility] No Lovenox No Lovenox, 1, Drug form: MISC, Route: MISC, Continuous, 08/23/11 17:30:00, Duration: 30 day, Stop date: 09/22/11 18:29:00 MISC No Longer Active Hadad 08/23 [facility] Dilaudid 1.5 mg, 0.75 mL, Rout e: IVP, Drug form: INJ, Q3H, PRN Pain, Start date: 08/23/11 17:06:00, Duration: 30 day, Stop date: 09/22/11 17:05:00 IVP No Longer Active Hadad 08/23/2011 [facility] Dextrose 5% with 0.45% NaCl IV 1,000 mL 1,000 mL, Rate: 120 ml/hr, Infuse over: 8.3 hr, Route: IV, Total Volume: 1,000, Start date: 08/23/11 17:04:00, Duration: 30 day, Stop date: 09/22/11 17:03:00 IV No Longer Active Hadad 08/23/2011 [facility] Diovan 80 mg, PO, Daily, Subst itution Allowed PO On Hold 08/23/2011 [facility] lidocaine 1% 0.5 mL, Route: RAINES B-Q, Drug Form: INJ, ONCALL, Start date: 08/23/11 10:00:00, Duration: 1 doses or times SUB-Q No Longer Active Hadad 08/23/2011 [facility] Lactated Ringers Injection IV 1,000 mL 1,000 mL, Rate: 25 ml/hr, Infuse over: 40 hr, Route: IV, Total Volume: 1,000, Start date: 08/23/11 9:44:00, Duration: 30 day, Stop date: 09/22/11 9:43:00 IV No Longer Active Jarred 08/23/2011 [facility] Reglan 10 mg oral tablet 10 mg , 1 tab, PO, QID, PRN, 28 tab, nausea, Substitution Allowed, TAB PO Active Zoe jasmine 05/23/2011 [facility] Pepto-Bismol 262 mg/15 mL oral suspension 262 mg, 15 ml, PO, QID, PRN, 120 ml, for dyspepsia, Substitution Allowed, SUSP PO Active joanne05/23/2011 [facility] Zofran 4 mg, Route: IVP, Drug form: INJ, ONCE, Priority: STAT, Start date: 05/22/11 23:06:00, Stop date: 05/22/11 23:06:00 IVP No Longer Active 05/23/2011 [facility] morphine Sulfate 2 mg, Route: IVP, ONCE, Priority: STAT, Start date: 05/22/11 23:06:00, Stop date: 05/22/11 23:06:00 IVP No Longer Active 05/23/2011 [facility] Sodium Chloride 0.9% (Bolus) IV 500 mL 500 mL, Rate: 1,000 ml/hr, Infuse over: 0.5 hr, Route: IV, Total Volume: 500, Bolus dose, Priority: STAT, Start date: 05/22/11 21:18:00, Duration: 1 doses or times, Stop date: 05/22/11 21:47:00 IV No Longer Active [facility] 05/23/2011 [facility] Saline Flush 0.9% 5 ml, Route: IVP, Drug Form: INJ, PRN, PRN Line Flush, Start date: 05/22/11 21:18:00, Duration: 24 hr, Stop date: 05/23/11 21:17:00 IVP No Longer Active [facility] 05/23/2011 [facility] Allergies, Adverse Reactions, Alerts Substance Category Reaction Severity Reaction type Status Date Reported Comments Source codeine Assertion Drug allergy Active [facility] [place] Immunizations No Data Provided for This Section Results Order Name Results Value Reference Range Date Interpretation Comments Source BEDSIDE GLUCOSE TESTING Comment1 Notify RN/ 08/27/2011 STARLA [facility] BEDSIDE GLUCOSE TESTING Gluc POC Lif scn 108 65 - 110 08/27/2011 Normal <sup>1</sup>Interpretive Data: Upper Reportable Limit: 200 mg/dL. [facility] BEDSIDE GLUCOSE TESTING Gluc POC Lif scn 124 65 - 110 08/27/2011 [place] <sup>2</sup>Interpretive Data: Upper Reportable Limit: 200 mg/dL. [facility] BEDSIDE GLUCOSE TESTING Comment1 Notify LOUISA/ 08/27/2011 NA [facility] BEDSIDE GLUCOSE TESTING Gluc POC Lif scn 117 65 - 110 08/26/2011 [place] <sup>3</sup>Interpretive Data: Upper Reportable Limit: 200 mg/dL. [facility] BEDSIDE GLUCOSE TESTING Comment1 Notify LOUISA/ 08/26/2011 NA [facility] CHEMISTRY AGAP 12.3 10.0 - 20.0 08/25/2011 Normal [facility] CHEMISTRY Creatinine Lvl 0.6 0.5 - 1.4 08/25/2011 Normal [facility] CHEMISTRY Sodium Lvl 142 135 - 145 08/25/2011 Normal [facility] CHEMISTRY Potassium Lvl 4.3 3.5 - 5.1 08/25/2011 Normal [facility] CHEMISTRY Calcium Lvl 7.6 8.5 - 10.5 08/25/2011 LOW [facility] CHEMISTRY CO2 28 24 - 32 08/25/2011 Normal [facility] CHEMISTRY Chloride Lvl 106 95 - 109 08/25/2011 Normal [facility] CHEMISTRY BUN 5 7 - 22 08/25/2011 LOW [facility] CHEMISTRY Glucose Lvl 131 08/25/2011 NA <sup>4</sup>Interpretive Data: Reference Ranges : 0 - 7 days : 41 - 90 mg/dL 7 days - 150 yrs : 70 - 99 mg/dL (fasting), based on the clinical recommendations of the [place] [employer]. [facility] HEMATOLOGY Hgb 10.9 12.0 - 16.0 08/25/2011 LOW [facility] HEMATOLOGY RBC 3.48 4.20 - 5.40 08/25/2011 LOW [facility] HEMATOLOGY WBC 7.1 3.7 - 10.4 08/25/2011 Normal [facility] HEMATOLOGY RDW 13.9 11.5 - 14.5 08/25/2011 Normal [facility] HEMATOLOGY MCHC 33.5 32.0 - 36.0 08/25/2011 Normal [facility] HEMATOLOGY MCH 31.5 27.0 - 31.0 08/25/2011 HI [facility] HEMATOLOGY MCV 94.0 81.0 - 99.0 08/25/2011 Normal [facility] HEMATOLOGY Hct 32.7 36.0 - 48.0 08/25/2011 LOW [facility] HEMATOLOGY MPV 9.3 7.4 - 10.4 08/25/2011 Normal [facility] HEMATOLOGY Platelet 208 133 - 450 08/25/2011 Normal [facility] HEMATOLOGY Atypical Lymphs 0.0 <=0.0 08/25/2011 Normal [facility] HEMATOLOGY RBC Morph Lynnette l (08/25/2011 04:07:00) 08/25/2011 Normal [facility] HEMATOLOGY Plt Morph Lynnette l (08/25/2011 04:07:00) 08/25/2011 Normal [facility] HEMATOLOGY Tot Cell Ct 100 08/25/2011 NA [facility] HEMATOLOGY Monocytes 5.0 2.0 - 12.0 08/25/2011 Normal [facility] HEMATOLOGY Eosinophils 0.0 0.0 - 4.0 08/25/2011 Normal [facility] HEMATOLOGY Basophils 0.0 0.0 - 1.0 08/25/2011 Normal [facility] HEMATOLOGY Lymphocytes 26.0 20.0 - 40.0 08/25/2011 Normal [facility] HEMATOLOGY Segs-Bands # 4.9 1.5 - 8.1 08/25/2011 Normal [facility] HEMATOLOGY Monocytes # 0.4 0.0 - 0.8 08/25/2011 Normal [facility] HEMATOLOGY Bands 0.0 0.0 - 11.0 08/25/2011 Normal [facility] HEMATOLOGY Lymphocytes # 1.8 1.0 - 5.5 08/25/2011 Normal [facility] HEMATOLOGY Segs 69.0 45.0 - 75.0 08/25/2011 Normal [facility] CHEMISTRY AGAP 13.3 10.0 - 20.0 08/24/2011 Normal [facility] CHEMISTRY Glucose Lvl 133 08/24/2011 NA <sup>5</sup>Interpretive Data: Reference Ranges : 0 - 7 days : 41 - 90 mg/dL 7 days - 150 yrs : 70 - 99 mg/dL (fasting), based on the clinical recommendations of the [place] [employer]. [place] CHEMISTRY CO2 26 24 - 32 08/24/2011 Normal [facility] CHEMISTRY Calcium Lvl 7.8 8.5 - 10.5 08/24/2011 LOW [facility] CHEMISTRY Potassium Lvl 4.3 3.5 - 5.1 08/24/2011 Normal [facility] CHEMISTRY Chloride Lvl 106 95 - 109 08/24/2011 Normal [facility] CHEMISTRY BUN 8 7 - 22 08/24/2011 Normal [facility] CHEMISTRY Sodium Lvl 141 135 - 145 08/24/2011 Normal [facility] CHEMISTRY Creatinine Lvl 0.7 0.5 - [...] HEMATOLOGY MCH 32.2 27.0 - 31.0 08/24/2011 [facility] [place] HEMATOLOGY Hct 33.1 36.0 - [...] Total 0.3 0.2 - 1.3 08/21/2011 Normal [facility] CHEMISTRY AST 16 0 - 37 08/21/2011 Normal [facility] CHEMISTRY Calcium Lvl 8.4 8.5 - 10.5 08/21/2011 LOW [facility] CHEMISTRY CO2 27 24 - 32 08/21/2011 Normal [facility] CHEMISTRY Potassium Lvl 3.8 3.5 - 5.1 08/21/2011 Normal [facility] CHEMISTRY Chloride Lvl 104 95 - 109 08/21/2011 Normal [facility] CHEMISTRY BUN 13 7 - 22 08/21/2011 Normal [facility] CHEMISTRY Sodium Lvl 141 135 - 145 08/21/2011 Normal [facility] CHEMISTRY Creatinine Lvl 0.6 0.5 - 1.4 08/21/2011 Normal [facility] CHEMISTRY Glucose Lvl 117 08/21/2011 NA <sup>6</sup>Interpretive Data: Reference Ranges : 0 - 7 days : 41 - 90 mg/dL 7 days - 150 yrs : 70 - 99 mg/dL (fasting), based on the clinical recommendations of the [place] [employer]. [facility] CHEMISTRY Globulin 3.7 2.0 - 4.0 08/21/2011 Normal [facility] CHEMISTRY A/G Ratio 1.0 0.7 - 1.6 08/21/2011 Normal [facility] CHEMISTRY B/C Ratio 22 6 - 25 08/21/2011 Normal [facility] CHEMISTRY AGAP 13.8 10.0 - 20.0 08/21/2011 Normal [facility] HEMATOLOGY PTT 30.3 22.9 - 35.8 08/21/2011 Normal <sup>8</sup>Interpretive Data: Heparin T herapeutic Range: 57 - 92 Seconds [facility] HEMATOLOGY PT 11.8 12.0 - 14.7 08/21/2011 LOW [facility] HEMATOLOGY INR 0.86 0.85 - 1.17 08/21/2011 Normal <sup>7</sup>Interpretive Data: RECOMMEND ED RANGES FOR PROTIME INR: 2.0-3.0 for most medical and surgical thromboembolic states. 2.5-3.5 for artificial heart valves and recurrent embolism. INR SHOULD BE USED ONLY FOR PATIENTS ON STABLE ANTICOAGULANT THERAPY. [facility] HEMATOLOGY MPV 9.3 7.4 - 10.4 08/21/2011 Normal [facility] HEMATOLOGY RDW 13.0 11.5 - 14.5 08/21/2011 Normal [facility] HEMATOLOGY Platelet 232 133 - 450 [...] Troponin-I <0.02 0.00 - 0.40 05/23/2011 Normal [facility] CHEMISTRY Lipase Lvl 88.0 73 - 393 05/23/2011 Normal [facility] CHEMISTRY A/G Ratio 1.0 0.7 - 1.6 05/23/2011 Normal [facility] CHEMISTRY AST 25.0 0 - 37 05/23/2011 Normal [facility] CHEMISTRY Bili Total 0.4 0.2 - 1.3 05/23/2011 Normal [facility] CHEMISTRY AGAP 8.9 10.0 - 20.0 05/23/2011 LOW [facility] CHEMISTRY B/C Ratio 18.0 6 - 25 05/23/2011 Normal [facility] CHEMISTRY Globulin 4.2 2.0 - 4.0 05/23/2011 [facility] [place] CHEMISTRY Glucose Lvl 105.0 05/23/2011 NA <sup>1</sup>Interpretive Data: Reference Ranges : 0 - 7 days : 41 - 90 mg/dL 7 days - 150 yrs : 70 - 99 mg/dL (fasting), based on the clinical recommendations of the [place] [employer]. [facility] CHEMISTRY BUN 11.0 7 [...] Total Protein 8.5 6.4 - 8.4 05/23/2011 [facility] CHEMISTRY Alk Phos 75.0 39 [...] HEMATOLOGY Eosinophils 4.3 0.0 - 4.0 05/23/2011 [facility] HEMATOLOGY Segs-Bands # 4.4 1.5 - 8.1 05/23/2011 Normal [facility] HEMATOLOGY Basophils 0.9 0.0 - 1.0 05/23/2011 Normal [facility] HEMATOLOGY Monocytes 6.8 2.0 - 12.0 05/23/2011 Normal [facility] HEMATOLOGY Lymphocytes 24.8 20.0 - 40.0 05/23/2011 Normal [facility] HEMATOLOGY Segs 63.2 45.0 - 75.0 05/23/2011 Normal [facility] HEMATOLOGY Basophils # 0.1 0.0 - 0.2 05/23/2011 Normal [facility] HEMATOLOGY MPV 9.4 7.4 - 10.4 05/23/2011 Normal [facility] HEMATOLOGY Platelet 270.0 133 - 450 05/23/2011 Normal [facility] HEMATOLOGY RDW 13.2 11.5 - 14.5 05/23/2011 Normal [facility] HEMATOLOGY MCH 32.1 27.0 - 31.0 05/23/2011 HI [facility] HEMATOLOGY MCHC 34.5 32.0 - 36.0 05/23/2011 Normal [facility] HEMATOLOGY MCV 92.9 81.0 - 99.0 05/23/2011 Normal [facility] HEMATOLOGY Hgb 13.3 12.0 - 16.0 05/23/2011 Normal [facility] HEMATOLOGY Hct 38.4 36.0 - 48.0 05/23/2011 Normal [facility] HEMATOLOGY RBC 4.14 4.20 - 5.40 05/23/2011 LOW [facility] HEMATOLOGY WBC 6.9 3.7 - 10.4 05/23/2011 Normal [facility] URINALYSIS UA Nitrite Negat dayna (05/22/2011 19:40:00) ?? >Nega tive 05/23/2011 Normal [facility] URINALYSIS UA Bacteria None Seen (05/22/2011 19:40:00) ?? >None Seen 05/23/2011 Normal [facility] URINALYSIS UA Leuk Est Trace *ABN* (05/22/2011 19:40:00) ?? >Nega tive 05/23/2011 ABN [facility] URINALYSIS UA Sq Epi None Seen (05/22/2011 19:40:00) ?? >Few 05/23/2011 Normal [facility] URINALYSIS UA WBC 3-5 / HPF (05/22/2011 19:40:00) ?? >None Seen 05/23/2011 Normal [facility] URINALYSIS UA Ketones Negat dayna *NA* (05/22/2011 19:40:00) ?? >Nega tive 05/23/2011 NA [facility] URINALYSIS UA Bili Negat dayna *NA* (05/22/2011 19:40:00) ?? >Nega tive 05/23/2011 NA [facility] URINALYSIS UA Blood Negat dayna (05/22/2011 19:40:00) ?? >Nega tive 05/23/2011 Normal [facility] URINALYSIS UA Urobilinogen 0.2 0.1 - 1.0 05/23/2011 Normal [facility] URINALYSIS UA RBC None Seen (05/22/2011 19:40:00) ?? >0 - 2 05/23/2011 Normal [facility] URINALYSIS UA Glucose Negat dayna (05/22/2011 19:40:00) ?? >Nega tive 05/23/2011 Normal [facility] URINALYSIS UA pH 6.0 5.0 - 8.0 05/23/2011 Normal [facility] URINALYSIS UA Protein Negat dayna (05/22/2011 19:40:00) ?? >Nega tive 05/23/2011 Normal [facility] URINALYSIS UA Turbidity Clear (05/22/2011 19:40:00) ?? >Clear 05/23/2011 Normal [facility] URINALYSIS UA Spec Grav 1.01 <<=1.030 05/23/2011 Normal [facility] URINALYSIS UA Color Yello w *NA* (05/22/2011 19:40:00) ?? >[place] ow 05/23/2011 NA [facility] Pathology Reports No Data Provided for [...] 18 08/27/2011 [facility] Heart Rate 76 08/27/2011 [facility] Temperature Oral (F) 98.3 F 08/27/2011 [facility] Heart Rate 82 08/27/2011 [facility] Respitory Rate 18 08/27/2011 [facility] Systolic (mm Hg) 121 08/27/2011 [facility] Diastolic (mm Hg) 69 08/27/2011 [facility] Systolic (mm Hg) 116 08/27/2011 [facility] Respitory Rate 18 08/27/2011 [facility] Diastolic (mm Hg) 74 08/27/2011 [facility] Temperature Oral (F) 98.0 F 08/27/2011 [facility] Heart Rate 84 08/27/2011 [facility] Height 152.40 cm 08/25/2011 [facility] Weight 63.636 08/25/2011 [facility] Weight 63.636 08/21/2011 [facility] Height 154.94 cm 08/21/2011 [facility] Temperature Oral (F) 98.5 F 05/23/2011 [facility] Respitory Rate 18.0 05/23/2011 [facility] Diastolic (mm Hg) 86.0 05/23/2011 [facility] Heart Rate 78.0 05/23/2011 [facility] Systolic (mm Hg) 147.0 05/23/2011 [facility] Temperature Oral (F) 98.3 F 05/23/2011 [facility] Heart Rate 78.0 05/23/2011 [facility] Respitory Rate 18.0 05/23/2011 [facility] Systolic (mm Hg) 141.0 05/23/2011 [facility] Diastolic (mm Hg) 71.0 05/23/2011 [facility] Systolic (mm Hg) 196.0 05/23/2011 [facility] Respitory Rate 16.0 05/23/2011 [facility] Heart Rate 72.0 05/23/2011 [facility] Diastolic (mm Hg) 70.0 05/23/2011 [facility] Temperature Oral (F) 98.0 F 05/23/2011 [facility] Height 152.4 cm 05/23/2011 [facility] Weight 63.636 05/23/2011 [facility] Encounters Location Location Details Encounter Type Encounter Number Reason For Visit Attending Provider ADM Date DC Date Status Source [facility] Emergency [id number] ELISE OVALLES 05/22/2011 05/23/2011 Discharged [facility] Outpatient [id number] ABNORMAL CHEST XR AY KIMBERLY HADAD 08/22/2011 [facility] Inpatient [id number] INCISIONAL HERNIA [id number] KIMBERLY HADAD 08/23/2011 08/27/2011 Active [facility] Outpatient [id number] Ángel Victorth 02/02/2019 02/03/2019 [facility] [place] [facility] [id number] Ángel [facility] 02/14/2019 02/15/2019 [facility] [place] [facility] Outpatient Imaging - [place] [facility] Di[facility] Services [id number] [facility] 09/01/2019 09/02/2019 [facility] [place] [facility] Outpatient [id number] ROUTINE SCREENING KERON LYON Active [facility] Procedures No Data Provided for This Section Assessment and Plan No Data Provided for This Section Plan of Care No Data Provided for This Section Social History Social History Date Source Social History TypeResponse 09/02/2019 [facility] [place] Social History TypeResponse 02/03/2019 [facility] Family History No Data Provided for This Section Advance Directives No Data Provided for This Section Functional Status No Data Provided for This Section
--- OUTSIDE RECORDS SUMMARY | 2019-12-15 07:12 | XMS REPORT | Continuity of Care Document ---
Author Author [facility] t Organization [facility] Address [address] [place] [address] Phone Unavailable Care Team Providers Care Surgery Specialist Name Role Phone LIGIA WEST DO PCP DAVIDA GANT Attphys Unavailable PETERSEN, SOUHEIL Attphys Unavailable Homero Soares Attphys Montrell HOOPER Attphys Unavailable Patrick BAEZ (NON STAFF) FAVIOLA Attphys Unavailable Patrick ABDULLAHI Attphys Unavailable LIGIA WEST Attphys Unavailable Pramod FUNES Attphys Unavailable Christi RINCON Attphys Unavailable PETERSEN, SOUHEIL Admphys Unavailable Payers Payer Name Policy Type Policy Number Effective Date Expiration Date Reji luevano [facility] [id number] 2019 00:00:00 [facility] [id number] 2011 00:00 :00 [facility] [id number] 2017 00:00:[address] [facility] Reji [facility] Problems Condition Name Condition Details Condition Category Status Onset Date Resolution Date Last Treatment Date Treating Clinician Comments Source DX: M25.512-PAIN IN LEFT SHOULDER DX: M25.512-PAIN IN LEFT SHOULDER Active 01/30/2019 [facility] Active 2019-01-30 00:00:00 2019-02-02 16:34:00 [facility] OSTEOPOROSIS OSTE OPOROSIS Active 03/11/2014 [facility] Active 2014-03-11 00:00:00 2014-04-13 15:26:00 [facility] ROUTINE SCREENING ROUT INE SCREENING Active 02/01/2012 [facility] Active 2012-02-01 00:00:00 2012-03-15 13:58:00 [facility] ABNORMAL CHEST XRAY ABNO RMAL CHEST XRAY Active 08/21/2011 [facility] Active 2011-08-21 00:00:00 2011-08-22 14:12:00 [facility] INCISIONAL HERNIA 553.21/29917 INCISIONAL HERNIA 553.21/53089 Active 07/28/2011 [facility] Active 07-28 00:00:00 2011-12-25 11:49:00 [facility] INCISIONAL HERNIA INCI SIONAL HERNIA Active 07/28/2011 [facility] Active 2011-07-28 00:00:00 2011-08-11 13:57:00 [facility] ABD PAIN ABD PAIN Active 05/09/2011 [facility] Active 2011-05-09 00:00:00 2011-05-22 22:11:00 [facility] Hypertension Hypertension Problem Active [facility] Hyponatremia Hyponatremia Problem Active [facility] INTESTNL ADHESIONS, UNSP TO PARTIAL VERSUS COMPLETE OBS T Problem Active [facility] PARTIAL INTESTINAL OBSTRUCTION, UNSPECIFIED TO CAUSE Problem Active [facility] DM - Diabetes mellitus DM - Diabetes mellitus Active Problem 08/29/2011 [facility] Active 2011-08-29 09:01:4 5 [facility] GERD - Gastro-esophageal reflux disease GERD - Gastro- esophageal reflux disease Active Problem 08/29/2011 [facility] Problem A ctive 2011-08-29 09:01:45 [facility] HTN - Hypertension HTN - Hypertension Active Problem 08/29/2011 [facility] Problem Active 2011-08-29 09:01:45 [facility] Incisional hernia Inci sional hernia Active Problem 08/29/2011 [facility] Problem Active 2011-08-29 09:01:45 [facility] Arthritis (disorder) Arth ritis (disorder) Active Problem 09/04/2019 OPID [place] Problem Active 2019-09-04 00:02:54 [facility] Diabetes mellitus (disorder) D iabetes mellitus (disorder) Active Problem 09/04/2019 ADDISON Slade [facility] Problem Active 2019-09-04 00:02:54 [facility] Gastroesophageal reflux disease (disorder) Gastroesophageal reflux disease (disorder) Active Problem 09/04/2019 ADDISON Slade [facility] Problem Active 2019-09-04 00:02:54 [facility] Incisional hernia (disorder) I ncisional hernia (disorder) Active Problem 09/04/2019 ADDISON Slade [facility] Problem Active 2019-09-04 00:02:54 [facility] Arthritis Arth ritis Active Problem 08/29/2011 [facility] Problem Active 2011-08-29 09:01:45 Me morial [facility] INCISIONAL HERNIA INCI SIONAL HERNIA Active [facility] Diagnosis Active 2011-12-25 11:49:00 [facility] Allergies, Adverse Reactions, Alerts Allergy Name Allergy Type Status Severity Reaction(s) Onset Date Inacti ve Date Treating Clinician Comments Source Lorazepam Allergy to Substance Active Moderate 2019-09-28 00:00:00 [facility] codeine DA Active [place] 2018-06-28 00:00:00 [facility] codeine DA Active [place] 2017-07-17 00:00:00 [facility] codeine codeine Active [facility] Medications Ordered Medication Name Filled Medication Name Start Date Stop Da te Current Medication? Ordering Clinician Indication Dosage Frequency Signature (SIG) Comments Components Source Tramadol Hcl (Ultram) 50 Mg Tablet Tramadol Hcl (Ultram) 50 Mg Tablet 2018-08-11 00:00:00 Yes Davida Gant Do 50 Every 6 Hours as n eeded for Pain [facility] Cephalexin Monohydrate (Keflex) 500 Mg Capsule, 500 Mg Oral Cephalexin Monohydrate (Keflex) 500 Mg Capsule, 500 Mg Oral 2018-08-11 00:00:00 08-29 00:00:00 No Davida Gant Do 500 Every 6 Hours [facility] Restoril 2011-08-26 18:04:00 No Larry Boyer Gelber 15 mg, 1 cap, Route: PO, Drug form: CAP, Bedtime, PRN Sleep, Start date: 08/26/11 12:04:00, Duration: 30 day, Stop date: 09/25/11 12:03:00 [facility] rafa Obrien Crestor 2011-08-26 03:00:00 No Christo R Hadad 20 mg, 2 tab, Route: PO, Drug form: TAB, Bedtime, Start date: 08/25/11 21:00:00, Duration: 30 day, Stop date: 09/23/11 21:00:00 [facility] tramadol 50 mg oral tablet 2011-08-25 23:31:00 No Aniba l R Hadad 50 mg, 1 tab, Route: PO, Drug form: TAB, Q4H, PRN Pain, Start date: 08/25/11 17:31:00, Duration: 30 day, Stop date: 09/24/11 17:30:00 [facility] Tylenol 2011-08-25 23:31:00 No Christo R Hadad 325 mg, 1 tab, Route: PO, Drug form: TAB, Q4H, PRN Pain, Start date: 08/25/11 17:31:00, Duration: 30 day, Stop date: 09/24/11 17:30:00 [facility] Ultracet oral tablet 2011-08-25 17:05:00 No Christo R Goode dad 1 tab, Route: PO, Drug Form: TAB, Q4H, PRN Pain, Start date: 08/25/11 11:05:00, Duration: 30 day, Stop date: 09/24/11 11:04:00 [facility] Milk of Magnesia 2011-08-25 17:04:00 No Christo R Hadad 60 ml, Route: PO, Drug Form: SUSP, ONCE, Start date: 08/25/11 11:04:00, Stop date: 08/25/11 11:04:00 [facility] Diovan 2011-08-25 15:00:00 No Christo R Hadad 80 mg, 1 tab, Route: PO, Drug form: TAB, Daily, Start date: 08/25/11 9:00:00, Duration: 30 day, Stop date: 09/23/11 9:00:00 [facility] metFORmin 500 mg oral tablet 2011-08-25 14:00:00 No Ani bal R Hadad 500 mg, 1 tab, Route: PO, Drug form: TAB, Breakfast, Start date: 08/25/11 8:00:00, Duration: 30 day, Stop date: 09/23/11 8:00:00 [facility] acetaminophen-hydrocodone 325 mg-5 mg oral tablet 19:06:00 No Christo R Hadad 1 tab, Route: PO , Drug Form: TAB, Q4H, PRN Pain, Start date: 08/24/11 13:06:00, Duration: 30 day, Stop date: 09/23/11 13:05:00 [facility] Dilaudid 2011-08-24 19:06:00 No Christo R Hadad 0.5 mg, 0.25 mL, Route: IVP, Drug form: INJ, Q3H, PRN Severe Pain, Start date: 08/24/11 13:06:00, Duration: 30 day, Stop date: 09/23/11 13:05:00 [facility] NovoLog FlexPen 2011-08-24 19:04:00 No Christo R Hadad 18 unit, 0.18 mL, Route: SUB-Q, Drug form: SOLN, Q6H, PRN Blood Glucose Results, Start date: 08/24/11 13:04:00, Duration: 30 day, Stop date: 09/23/11 13:03:00 [facility] glucagon 2011-08-24 19:04:00 No Christo R Hadad 1 mg, Route: IM, Drug form: PDR/INJ, PRN, PRN Blood Glucose Results, Start date: 08/24/11 13:04:00, Duration: 30 day, Stop date: 09/23/11 14:03:00 [facility] Dextrose 50% in Water IV 2011-08-24 19:04:00 No Christo R Hadad 50 mL, Route: IVP, PRN, Blood Glucose Results, Start date: 08/24/11 13:04:00, Duration: 30 day, Stop date: 09/23/11 14:03:00 [facility] NovoLog FlexPen 2011-08-24 19:03:00 No Christo R Hadad 9 unit, 0.09 mL, Route: SUB-Q, Drug form: SOLN, Q6H, PRN Blood Glucose Results, Start date: 08/24/11 13:03:00, Duration: 30 day, Stop date: 09/23/11 13:02:00 [facility] Crestor 20 mg oral tablet 2011-08-24 17:53:48 Yes 20 mg, 1 tab, Bedtime, Substitution Allowed [facility] metFORmin 500 mg oral tablet 2011-08-24 17:52:53 Yes 500 mg, 1 tab, PO, Daily, Substitution Allowed, with breakfastwith breakfast [facility] Unasyn 2011-08-24 00:00:00 No Christo R Hadad 3 gm, 1 ea, Route: IVPB, ABXQ6H, Start date: 08/23/11 18:00:00, Duration: 24 hr, Stop date: 08/24/11 12:00:00 [facility] Protonix 2011-08-24 00:00:00 No Christo R Hadad 40 mg, Route: IVP, Drug form: INJ, Before Dinner, Start date: 08/23/11 18:00:00, Duration: 30 day, Stop date: 09/22/11 16:30:00 [facility] No Lovenox 2011-08-23 23:30:00 No Christo R Hadad No Lovenox, 1, Drug form: MISC, Route: MISC, Continuous, 08/23/11 17:30:00, Duration: 30 day, Stop date: 09/22/11 18:29:00 [facility] Dilaudid 2011-08-23 23:06:00 No Christo R Hadad 1.5 mg, 0.75 mL, Route: IVP, Drug form: INJ, Q3H, PRN Pain, Start date: 08/23/11 17:06:00, Duration: 30 day, Stop date: 09/22/11 17:05:00 Aristeo Hood Dextrose 5% with 0.45% NaCl IV 1,000 mL 2011-08-23 23:04:0 0 No Christo R Hadad 1,000 mL, Rate: 120 ml/hr, Infuse over: 8.3 hr, Route: IV, Total Volume: 1,000, Start date: 08/23/11 17:04:00, Duration: 30 day, Stop date: 09/22/11 17:03:00 [facility] Diovan 2011-08-23 16:32:59 Yes 80 mg, PO, Daily, Substitution Allowed [facility] lidocaine 1% 2011-08-23 16:00:00 No Christo R Hadad 0.5 mL, Route: SUB- Q, Drug Form: INJ, ONCALL, Start date: 08/23/11 10:00:00, Duration: 1 doses or times [facility] Lactated Ringers Injection IV 1,000 mL 2011-08-23 15:44:00 No Salvador Dumont Jarred 1,000 mL, Rate: 25 ml/hr, Infuse over: 40 hr, Route: IV, Total Volume: 1,000, Start date: 08/23/11 9:44:00, Duration: 30 day, Stop date: 09/22/11 9:43:00 [facility] Reglan 10 mg oral tablet 2011-05-23 05:47:07 Yes Samson Kutsen 10 mg, 1 tab, PO, QID, PRN, 28 tab, nausea, Substitution Allowed, TAB [facility] Pepto-Bismol 262 mg/15 mL oral suspension 2011-05-23 05:46 :38 Yes Samson Kutsen 262 mg, 15 ml, P O, QID, PRN, 120 ml, for dyspepsia, Substitution Allowed, SUSP [facility] Zofran 2011-05-23 05:06:00 No Samson Kutsen 4 mg, Route: IVP, Drug form: INJ, ONCE, Priority: STAT, Start date: 05/22/11 23:06:00, Stop date: 05/22/11 23:06:00 [facility] morphine Sulfate 2011-05-23 05:06:00 No Samson Kutsen 2 mg, Route: IVP, ONCE, Priority: STAT, Start date: 05/22/11 23:06:00, Stop date: 05/22/11 23:06:00 [facility] Sodium Chloride 0.9% (Bolus) IV 500 mL 2011-05-23 03:18:00 No Samson Kutsen 500 mL, Rate: 1, 000 ml/hr, Infuse over: 0.5 hr, Route: IV, Total Volume: 500, Bolus dose, Priority: STAT, Start date: 05/22/11 21:18:00, Duration: 1 doses or times, Stop date: 05/22/11 21:47:00 [facility] Saline Flush 0.9% 2011-05-23 03:18:00 No Samson Mathur 5 ml, Route: IVP, Drug Form: INJ, PRN, PRN Line Flush, Start date: 05/22/11 21:18:00, Duration: 24 hr, Stop date: 05/23/11 21:17:00 [facility] Cyanocobalamin (Vitamin B-12) (B-12) 1,000 Mcg Tablet. er Cyanocobalamin (Vitamin B-12) (B-12) 1,000 Mcg Tablet.er Yes 1 Daily [facility] D3 D3 Yes 25 [facility] Linagliptin (Tradjenta) 5 Mg Tablet Linagliptin (Tradjenta) 5 Mg Tabl et Yes 5 Daily [facility] Metoprolol Tartrate 25 Mg Tablet Metoprolol Tartrate 25 Mg Tablet Yes 25 Twice A Day [facility] Losartan Potassium 100 Mg Tablet, 100 Mg Oral Losartan Potassium 100 Mg Tablet, 100 Mg Oral 2019-02-10 00:00:00 No 100 Daily [facility] Metformin Hcl 500 Mg Tablet, 500 Mg Oral Metformin Hcl 500 Mg Tablet, 500 Mg Oral 2019-02-10 00:00:00 No 500 Daily [facility] Omeprazole 20 Mg Capsule., 20 Mg Oral Omeprazole 20 Mg Cap olga., 20 Mg Oral 2019-02-10 00:00:00 No 20 Daily [facility] Promethazine Hcl (Phenergan) 25 Mg/1 Ml Ampul, 25 Mg O ral Promethazine Hcl (Phenergan) 25 Mg/1 Ml Ampul, 25 Mg Oral 2019-02-10 00:00:00 No 25 As Needed as needed for Nausea [facility] Cefuroxime Axetil (Cefuroxime) 250 Mg Tablet, 250 Mg O ral Cefuroxime Axetil (Cefuroxime) 250 Mg Tablet, 250 Mg Oral 2018-08-29 00:00:00 No 250 Every 12 Hours [facility] Losartan Potassium 100 Mg Tablet, 100 Mg Oral Losartan Potassium 100 Mg Tablet, 100 Mg Oral 2018-08-29 00:00:00 No 100 Daily [facility] Hydrochlorothiazide 25 Mg Tablet, 12.5 Mg Oral Hydroch lorothiazide 25 Mg Tablet, 12.5 Mg Oral 2018-07-21 00:00:00 No 12.5 Daily@0600 [facility] Linagliptin (Tradjenta) 5 Mg Tablet, 5 Mg Peg Tube Candace agliptin (Tradjenta) 5 Mg Tablet, 5 Mg Peg Tube 2018-07-21 00:00:00 No 5 Da bartolome [facility] Linzess , 145 Mg Oral Linzess , 145 Mg Oral 2018-07-21 00:00:00 No 145 Daily [facility] Acetaminophen 325 Mg Tablet, 325 Mg Oral Acetaminophen 325 Mg Tablet, 325 Mg Oral 2018-07-19 00:00:00 No 325 Daily as needed fo r Pain [facility] Tramadol Hcl (Ultram 50MG*) 50 Mg Tab, 37.5 Mg Oral Tr amadol Hcl (Ultram 50MG*) 50 Mg Tab, 37.5 Mg Oral 2018-07-19 00:00:00 No 37.5 As Needed for Pain [facility] Metformin Hcl 500 Mg Tablet, 500 Mg Oral Metformin Hcl 500 Mg Tablet, 500 Mg Oral 2018-07-17 00:00:00 No 500 Twice A Day [facility] Omeprazole 40 Mg Capsule., 1 Cap Oral Omeprazole 40 Mg Cap olga., 1 Cap Oral 2018-07-17 00:00:00 No 1 Daily [facility] Valsartan (Diovan) 80 Mg Tab, 80 Mg Oral Valsartan (Di ovan) 80 Mg Tab, 80 Mg Oral 2018-07-17 00:00:00 No 80 Daily [facility] Vital Signs Vital Name Observation Time Observation Value Comments Source Temperature Oral (F) 2011-08-27 18:00:00 98.3 F [facility] Diastolic (mm Hg) 2011-08-27 18:00:00 Mem o[facility] Systolic (mm Hg) 2011-08-27 18:00:00 Jacob rial [facility]ah Respitory Rate 2011-08-27 18:00:00 [facility]ori [facility] Heart Rate 2011-08-27 18:00:00 [facility] Temperature Oral (F) 2011-08-27 14:00:00 98.3 F [facility] Heart Rate 2011-08-27 14:00:00 [facility] Respitory Rate 2011-08-27 14:00:00 [facility] Systolic (mm Hg) 2011-08-27 14:00:00 Jacob rial [facility] Diastolic (mm Hg) 2011-08-27 14:00:00 Mem [facility] Systolic (mm Hg) 2011-08-27 10:00:00 Jacob rial [facility] Respitory Rate 2011-08-27 10:00:00 [facility] Diastolic (mm Hg) 2011-08-27 10:00:00 Mem [facility] Temperature Oral (F) 2011-08-27 10:00:00 98.0 F [facility] Heart Rate 2011-08-27 10:00:00 [facility] Height 2011-08-25 01:24:00 152.40 cm [facility] Weight 2011-08-25 01:24:00 [facility] Weight 2011-08-21 17:08:00 [facility] Height 2011-08-21 17:08:00 154.94 cm [facility] Temperature Oral (F) 2011-05-23 06:12:00 98.5 F [facility] Respitory Rate 2011-05-23 06:12:00 [facility] Diastolic (mm Hg) 2011-05-23 06:12:00 Mem o[facility] Heart Rate 2011-05-23 06:12:00 [facility] Systolic (mm Hg) 2011-05-23 06:12:00 Jacob rial [facility] Temperature Oral (F) 2011-05-23 06:02:00 98.3 F [facility] Heart Rate 2011-05-23 06:02:00 [facility] Respitory Rate 2011-05-23 06:02:00 [facility] Systolic (mm Hg) 2011-05-23 06:02:00 Jacob rial [facility]ah Diastolic (mm Hg) 2011-05-23 06:02:00 Mem [facility] Systolic (mm Hg) 2011-05-23 04:27:00 Jacob rial [facility] Respitory Rate 2011-05-23 04:27:00 [facility] Heart Rate 2011-05-23 04:27:00 [facility] Diastolic (mm Hg) 2011-05-23 04:27:00 Mem o[facility] Temperature Oral (F) 2011-05-23 04:23:00 98.0 F [facility] Height 2011-05-23 01:11:00 152.4 cm [facility] Weight 2011-05-23 01:11:00 [facility] Procedures Procedure Date / Time Performed Performing Clinician [facility] e Computed tomography of abdomen and pelvis with contrast 2019 00:00:00 ZAINAB CHUNG [facility] X-ray of chest, two views 2019-09-28 00:00:00 ZAINAB CHUNG [facility] Computed tomography of abdomen and pelvis with contrast 2018 00:00:00 FLORENCE HOOPER [facility] Encounters Start Date/Time End Date/Time Encounter Type Admission Type [facility] Care Department Encounter ID Source 2019-09-28 08:19:00 2019-10-01 12:54:00 Discharged Inpatient 1 HAYLEY PETERSEN [facility] [id number] [facility] 2019-09-01 16:04:00 2019-09-01 23:59:00 Outpatient Ángel Soares [facility] [id number] 2019-04-28 14:18:00 2019-04-28 18:43:00 Departed Emergency Room 1 FLORENCE HOOPER [facility] [id number] [facility] 2019-03-21 12:22:00 2019-03-21 12:22:00 Registered Clinic 3 FAVIOLA BAEZ [facility] [id number] [facility] 2019-02-14 08:53:00 2019-02-14 23:59:00 Outpatient Ángel Soares [facility] [id number] 2019-02-10 16:23:00 2019-02-10 20:20:00 Departed Emergency Room 1 EMILY ABDULLAHI [facility] [id number] [facility] 2019-02-02 16:24:00 2019-02-02 23:59:00 Outpatient Fariba Soares [facility] [id number] 2019-02-02 16:24:00 2019-02-02 16:24:00 Outpatient [id number] [facility] 2018-08-29 06:34:00 2018-08-29 06:34:00 Registered Surgical Day Care [facility] [id number] [facility] 2018-08-11 14:48:00 2018-08-11 19:37:00 Departed Emergency Room 1 DAVIDA ENAMORADO [facility] [id number] [facility] 2018-08-05 13:08:00 2018-08-05 13:08:00 Registered Clinic 3 LIGIA CERVANTES [facility] [id number] [facility] 2018-07-19 21:32:00 2018-07-21 14:23:00 Discharged Inpatient (obs) 1 STELLA FUNES [facility] [id number] [facility] 2018-07-17 22:57:00 2018-07-18 01:52:00 Departed Emergency Room [facility] [id number] [facility] 2018-07-16 12:30:00 2018-07-16 12:30:00 Registered Clinic 3 LIGIA CERVANTES [facility] [id number] [facility] 2017-11-28 11:45:00 2017-11-28 11:45:00 Registered Clinic 3 JILLIAN RINCON [facility] [id number] [facility] Results Test Description Test Time Test Comments Results Result Comments Source ABDOMEN-1VIEW (KUB) 2019-10-31 18:34:00 [facility] [address] [place] [address] Patient Name: SHARLENE MOORE MR #: [id number] : 1935 Age/Sex: 84/F Req #: [id number] Adm Physician: Ordered by: ZAINAB PATTERSON ZINC ETCHER Report #: [id number] Location: ER Room/Bed: Procedure: [id number] DX/ABDOMEN-1VIEW (KUB) Exam Date: 10/31/19 Exam Time: 1800 REPORT STATUS: Signed EXAM: Abdomen 1 View INDICATION: abd fullness [id number] COMPARISON: Abdominal x-ray dated September 30, 2019 FINDINGS: Nonobstructive bowel gas pattern. No signs of pneumoperitoneum. Moderate colonic stool burden. Clear lung bases. No acute osseous abnormality. Degenerative changes of lower lumbar spine. IMPRESSION: Nonobstructive bowel gas pattern. Signed by: Dr. Mitul Witt MD on 10/31/2019 6:35 PM Dictated By: MITUL WITT MD 34 Transcribed By: JOHN on 10/31/191834 COPY TO: ZAINAB PATTERSON ZINC ETCHER Bedside Glucose 2019-10-01 14:39:00 Test Item Bedside Glucose (test code = 61084-6) 140 70-120 H Meter ID: [id number] 2019-09-30 08:03:00 [facility] [address] [place] [address] Patient Name: SHARLENE MOORE MR #: [id number] : 1935 Age/Sex: 84/F Req #: [id number] Adm Physician: HAYLEY PEETRSEN MD Ordered by: CAREY LOFTON MD Report #: [id number] Location: MED/SURG Room/Bed: 114-1 Procedure: [id number] DX/ABDOMEN 2 VIEW Exam Date: 09/30/19 Exam Time: 0530 REPORT STATUS: Signed TECHN IQUE: Frontal views of the abdomen. INDICATION: 84-year-old woman with smal l bowel obstruction. COMPARISON: Abdomen radiographs 09/29/2019. IMPRES JOHN: Nonobstructive bowel gas pattern. Interval removal of the nasogastr ic/orogastric tube. Bones and soft tissues are unremarkable. Signed by : Milton Shepherd MD on 09/30/2019 8:08 AM Dictated By: MILTON SHEPHERD MD [id number] Transcribed By: Bev RAMIREZ on 09/30/19 0808 COPY TO: CAREY LOFTON MD Sodium [id number] 05:40:00* Test Item Value Reference Range Interpretation Comments Sodium Level (test code = 2951-2) 138 136-145 [facility] [id number] 05:40:00* Test Item Value Reference Range Interpretation Comments Potassium Level (test code = 2823-3) 3.6 3.5-5.1 [facility] [id number] 05:40:00* Test Item Value Reference Range Interpretation Comments Chloride Level (test code = 2075-0) 109 98-107 H [facility] Dioxide [id number] 05:40:00* Test Item Value Reference Range Interpretation Comments Carbon Dioxide Level (test code = 2028-9) 19 22-29 L [facility]ion [id number] 05:40:00* Test Item Value Reference Range Interpretation Comments Anion Gap (test code = 26182-2) 13.6 8-16 [facility] Urea [id number] 05:40:00* Test Item Value Reference Range Interpretation Comments Blood Urea Nitrogen (test code = 3094-0) 12 7-26 [facility]2020-03-24 05:40:00* Test Item Value Reference Range Interpretation Comments Creatinine (test code = 2160-0) 0.66 0.57-1.11 [facility]/Creatinine [id number] 05:40:00* Test Item Value Reference Range Interpretation Comments BUN/Creatinine Ratio (test code = 3097-3) 18 6- [facility] Glomerular Filtration Rate 2019-09-30 05:40:00* Test Item Value Reference Range Interpretation Comments Estimat Glomerular Filtration Rate (test code = 119714987) > 60 >60 Ranges were taken from the National Kidney Disease Education Program and the [facility] literature.Reference ranges:60 or greater: Pmdiqh75-26 ( for 3 consecutive months): Chronic kidney disease 15 or less: Kidney failure[facility]Glucose Objte1530-53-79 05:40:00* Test Item Value Reference Range Interpretation Comments Glucose Level (test code = HJW5573) 66 74-118 L [facility]cium Ttvdf1415-15-10 05:40:00* Test Item Value Reference Range Interpretation Comments Calcium Level (test code = 17892-3) 8.1 8.4-10.2 L [facility] Blood [id number] 05:21:00* Test Item Value Reference Range Interpretation Comments White Blood Count (test code = 6690-2) 6.54 4.8-10.8 [facility] Blood Bfcoo6151-08-60 05:21:00* Test Item Value Reference Range Interpretation Comments Red Blood Count (test code = 789-8) 3.65 3.6-5.1 [facility]2020-03-24 05:21:00* Test Item Value Reference Range Interpretation Comments Hemoglobin (test code = 52794-1) 11.3 12.0-16.0 L [facility]ematocrit2020-03-24 05:21:00* Test Item Value Reference Range Interpretation Comments Hematocrit (test code = 4544-3) 34.3 34.2-44.1 [facility] Corpuscular Uwldbx0237-10-62 05:21:00* Test Item Value Reference Range Interpretation Comments Mean Corpuscular Volume (test code = 787-2) 94.0 81-99 [facility]Mean Corpuscular Qvipfpxtfj0820-37-60 05:21:00* Test Item Value Reference Range Interpretation Comments Mean Corpuscular Hemoglobin (test code = 785-6) 31.0 28-32 [facility] Corpuscular Hemoglobin Concent 2019-09-30 05:21:00* Test Item Value Reference Range Interpretation Comments Mean Corpuscular Hemoglobin Concent (test code = 786-4) 32.9 31-35 [facility]anoRed Cell Distribution Eenax7010-53-72 05:21:00* Test Item Value Reference Range Interpretation Comments Red Cell Distribution Width (test code = 88031-5) 13.4 11.7 -14.4 [facility]anoPlatelet Kmljh8764-58-31 05:21:00* Test Item Value Reference Range Interpretation Comments Platelet Count (test code = 777-3) 234 140-360 [facility]anoNeutrophils (%) (Auto)2019-09-30 05:21:00 * Test Item Value Reference Range Interpretation Comments Neutrophils (%) (Auto) (test code = 98595-3) 67.3 38.7-80.0 [facility]anoLymphocytes (%) (Auto)2019-09-30 05:21:00 * Test Item Value Reference Range Interpretation Comments Lymphocytes (%) (Auto) (test code = 736-9) 19.4 18.0-39.1 [facility]anoMonocytes (%) (Auto)2019-09-30 05:21:00* Test Item Value Reference Range Interpretation Comments Monocytes (%) (Auto) (test code = 5905-5) 10.2 4.4-11.3 [facility]anoEosinophils (%) (Auto)2019-09-30 05:21:00 * Test Item Value Reference Range Interpretation Comments Eosinophils (%) (Auto) (test code = 713-8) 2.0 0.0-6.0 [facility]Basophils (%) (Auto)2019-09-30 05:21:00* Test Item Value Reference Range Interpretation Comments Basophils (%) (Auto) (test code = 706-2) 0.6 0.0-1.0 [facility]anoIM GRANULOCYTES %2019-09-30 05:21:00* Test Item Value Reference Range Interpretation Comments IM GRANULOCYTES % (test code = IM GRANULOCYTES %) 0.5 0.0- 1.0 [facility]anoNeutrophils # (Auto)2019-09-30 05:21:00* Test Item Value Reference Range Interpretation Comments Neutrophils # (Auto) (test code = 751-8) 4.4 2.1-6.9 [facility]anoLymphocytes # (Auto)2019-09-30 05:21:00* Test Item Value Reference Range Interpretation Comments Lymphocytes # (Auto) (test code = 28711-2) 1.3 1.0-3.2 [facility]anoMonocytes # (Auto)2019-09-30 05:21:00* Test Item Value Reference Range Interpretation Comments Monocytes # (Auto) (test code = 742-7) 0.7 0.2-0.8 [facility]anoEosinophils # (Auto)2019-09-30 05:21:00* Test Item Value Reference Range Interpretation Comments Eosinophils # (Auto) (test code = 711-2) 0.1 0.0-0.4 [facility]anoBasophils # (Auto)2019-09-30 05:21:00* Test Item Value Reference Range Interpretation Comments Basophils # (Auto) (test code = 704-7) 0.0 0.0-0.1 [facility]anoAbsolute Immature Granulocyte (auto 2019-09-30 05:21:00* Test Item Value Reference Range Interpretation Comments Absolute Immature Granulocyte (auto (lionel t code = Absolute Immature Granulocyte (auto) 0.03 0-0.1 [facility]anoCreatine Kinase SC7497-59-32 06:37:00* Test Item Value Reference Range Interpretation Comments Creatine Kinase MB (test code = 90911-1) 2.00 0-5.0 [facility]anoTroponin A8193-23-04 06:37:00* Test Item Value Reference Range Interpretation Comments Troponin I (test code = ZME1392) 0.001 0-0.300 [facility]anoCreatine Ooywvb2782-58-58 06:30:00* Test Item Value Reference Range Interpretation Comments Creatine Kinase (test code = 2157-6) 69 29-168 [facility]anoTotal Zqavsiusw3941-87-75 06:22:00* Test Item Value Reference Range Interpretation Comments Total Bilirubin (test code = 1975-2) 0.5 0.2-1.2 [facility] PlanoAspartate Amino Transf (AST/SGOT) 2019-09-29 06:22:00* Test Item Value Reference Range Interpretation Comments Aspartate Amino Transf (AST/SGOT) (test code = Aspartate Amino Transf (AST/SGOT)) 22 5-34 [facility]anoAlanine Aminotransferase (ALT/SGPT) 2019-09-29 06:22:00* Test Item Value Reference Range Interpretation Comments Alanine Aminotransferase (ALT/SGPT) (test code = 1742-6) 19 0-55 [facility]anoTotal Tnrdprf9436-62-98 06:22:00* Test Item Value Reference Range Interpretation Comments Total Protein (test code = 2885-2) 7.1 6.5-8.1 [facility]anoAlbumin2020-03-23 06:22:00* Test Item Value Reference Range Interpretation Comments Albumin (test code = 1751-7) 3.8 3.5-5.0 [facility]anoGlobulin2020-03-23 06:22:00* Test Item Value Reference Range Interpretation Comments Globulin (test code = 83919-2) 3.3 2.3-3.5 [facility]anoAlbumin/Globulin Qhakq5278-03-28 06:22:00 * Test Item Value Reference Range Interpretation Comments Albumin/Globulin Ratio (test code = 1759-0) 1.2 0.8-2.0 [facility]anoAlkaline Kxbyqsoxhcp8166-48-24 06:22:00* Test Item Value Reference Range Interpretation Comments Alkaline Phosphatase (test code = 6768-6) 61 40-150 [facility]anoABDOMEN 2 DCFI2679-58-17 05:44:00 [facility] [address] [place] [address] Patient Name: SHARLENE MOORE MR #: [id number] : 1935 Age/Sex: 84/F Req #: [id number] Adm Physician: HAYLEY PETERSEN MD Ordered by: CAREY LOFTON MD Report #: [id number] Location: MED/SURG Room/Bed: [facility] Procedure: 032 04 DX/ABDOMEN 2 VIEW Exam Date: 09/29/19 Exam Time: 0530 REPORT STATUS: Signed EXAM: ABDOMEN 2 VIEW, DATE: 09/29/2019 INDICATION: Small bowel obstruction. COMPARISON: 09/28/2019. FINDINGS: LINES/TUBES: NG/orogastric tube with d istal tip projected on the gastric body, however, sidehole at the level of the GE junction; recommend advancing 2 to 3 cm. BOWEL PATTERN: Compared to the family practitioner KUB of the recent CT examination, small [...] TO: CAREY LOFTON MD ABDOMEN-1VIEW (KUB)2019-09-28 10:12:00 [place] [address] Patient Name: SHARLENE MOORE MR #: [id number] : 1935 Age/Sex: 84/F Req #: [id number] Adm Physician: JAZZ CORDOVA MD Ordered by: EMILY ABDULLAHI MD Report #: [id number] Location: MED/SURG Room/Bed: [facility] Procedure: [id number] DX/ ABDOMEN-1VIEW (KUB) Exam Date: 09/28/19 Exam [...] COPY TO: EMILY ABDULLAHI MD CHEST 2 RERWL9001-24-88 07:03:00 [place] [id number] [place] [address] Patient Name: SHARLENE MOORE MR #: [id number] : 1935 Age/Sex: 84/F Req #: [id number] Adm Physician: Ordered by: ZAINAB CHUNG DO Report #: [id number] Location: ER Room/Bed: Procedure: [id number] DX/CH EST 2 VIEWS Exam Date: 09/28/19 [...] YAMIL ADAM MD, MD 3 Transcribed By: OJHN on 0704 COPY TO: ZAINAB CHUNG DO CT ABDOMEN/PELVIS W 2019-09-28 06:48:00 [facility] [address] [place] [address] Patient Name: SHARLENE MOORE MR #: [id number] : 1935 Age/Sex: 84/F Req #: [id number] Adm Physician: Ordered by: ZAINAB CHUNG DO Report #: [id number] Location: ER Room/Bed: Procedure: [id number] CT/CT ABDOMEN/PELVIS W Exam Date: 09/28/19 Exam [...] 09/28/19700 COPY TO: ZAINAB CHUNG DO Urine Vphcb8470-29-74 06:39:00* Test Item Value Reference Range Interpretation Comments Urine Color (test code = 5778-6) YELLOW YELLOW [facility]anoUrine Dpdlnfw9766-01-89 06:39:00* Test Item Value Reference Range Interpretation Comments Urine Clarity (test code = 14352-8) CLEAR CLEAR [facility]anoUrine Specific Rpvykpz5204-44-22 06:39:00 * Test Item Value Reference Range Interpretation Comments Urine Specific [place] (test code = 5811-5) >=1.030 1.010-1.02 5 [facility]anoUrine pR8394-75-10 06:39:00* Test Item Value Reference Range Interpretation Comments Urine pH (test code = 37159-0) 5.5 5-7 [facility]anoUrine Leukocyte Qwlulqwo7530-85-02 06:39:00* Test Item Value Reference Range Interpretation Comments Urine Leukocyte Esterase (test code = 5799-2) SMALL NEGATIVE [facility]anoUrine Nrxfvkg5966-43-48 06:39:00* Test Item Value Reference Range Interpretation Comments Urine Nitrite (test code = 84874-9) NEGATIVE NEGATIVE [facility]anoUrine Eifeqjq6579-92-54 06:39:00* Test Item Value Reference Range Interpretation Comments Urine Protein (test code = 5804-0) 1+ NEGATIVE H [facility]anoUrine Glucose (UA)2019-09-28 06:39:00* Test Item Value Reference Range Interpretation Comments Urine Glucose (UA) (test code = 2349-9) NEGATIVE NEGATIVE [facility] Iguptxi5259-27-28 06:39:00* Test Item Value Reference Range Interpretation Comments Urine Ketones (test code = 05228-4) 1+ NEGATIVE H [facility] Xhwkqsyjdrzr8111-24-59 06:39:00* Test Item Value Reference Range Interpretation Comments Urine Urobilinogen (test code = 15080-0) 0.2 0.2-1 [facility] Rsfnnmsml9823-68-09 06:39:00* Test Item Value Reference Range Interpretation Comments Urine Bilirubin (test code = 1978-6) SMALL NEGATIVE [facility] Ynvzm5342-55-12 06:39:00* Test Item Value Reference Range Interpretation Comments Urine Blood (test code = 88514-0) TRACE NEGATIVE H [facility]anoUrine KYM5021-12-57 06:39:00* Test Item Value Reference Range Interpretation Comments Urine WBC (test code = 5821-4) 6-10 0-5 H [facility]anoUrine LRN4052-13-84 06:39:00* Test Item Value Reference Range Interpretation Comments Urine RBC (test code = 99452-0) 6-10 0-5 H [facility]anoUrine Gotfodmn8591-04-94 06:39:00* Test Item Value Reference Range Interpretation Comments Urine Bacteria (test code = 23731-1) RARE NONE [facility]anoUrine Epithelial Qfvca6052-96-69 06:39:00 * Test Item Value Reference Range Interpretation Comments Urine Epithelial Cells (test code = 26317-0) FEW NONE [facility] PlanoLipase2020-03-22 05:57:00* Test Item Value Reference Range Interpretation Comments Lipase (test code = 3040-3) 7 8-78 L [facility]anoCT ABDOMEN/PELVIS V8679-50-41 16:36:00 [facility] [address] [place] [address] Patient Name: SHARLENE MOORE MR #: [id number] : 1935 Age/Sex: 84/F Req #: [id number] Adm Physician: Ordered by: FLORENCE HOOPER MD Report #: [id number] Location: ER Room/Bed: Procedure: [id number] CT/CT ABDOMEN/PELVIS W Exam Date: 04/28/19 Exam [...] on 04/28/191653 COPY TO: FLORENCE HOOPER MD Urine VRZ8279-24-71 15:20:00* Test Item Value Reference Range Interpretation Comments Urine WBC (test code = 5821-4) 0-5 0-5 [facility]anoUrine PCR6475-56-28 15:20:00* Test Item Value Reference Range Interpretation Comments Urine RBC (test code = 85530-0) NONE 0-5 [facility]anoUrine Ukkajmdl1468-53-70 15:20:00* Test Item Value Reference Range Interpretation Comments Urine Bacteria (test code = 82568-4) NONE NONE [facility]anoUrine Epithelial Kyylz8820-18-14 15:20:00 * Test Item Value Reference Range Interpretation Comments Urine Epithelial Cells (test code = 24305-8) FEW NONE [facility]anoUrine Yoeiy4501-02-74 15:10:00* Test Item Value Reference Range Interpretation Comments Urine Color (test code = 5778-6) YELLOW YELLOW [facility]anoUrine Xkbmxug2336-88-92 15:10:00* Test Item Value Reference Range Interpretation Comments Urine Clarity (test code = 42922-0) CLEAR CLEAR [facility]anoUrine Specific Sqqwral6958-15-81 15:10:00 * Test Item Value Reference Range Interpretation Comments Urine Specific [place] (test code = 5811-5) 1.010 1.010-1.02 5 [facility]anoUrine rA6037-45-22 15:10:00* Test Item Value Reference Range Interpretation Comments Urine pH (test code = 46918-0) 6 5-7 [facility]anoUrine Leukocyte Ubtiqcwq1141-19-14 15:10:00* Test Item Value Reference Range Interpretation Comments Urine Leukocyte Esterase (test code = 27760-1) SMALL NEGATIV E [facility] Zhqfbrj5268-37-14 15:10:00* Test Item Value Reference Range Interpretation Comments Urine Nitrite (test code = 64702-1) NEGATIVE NEGATIVE [facility] Yjwnjqb6222-15-20 15:10:00* Test Item Value Reference Range Interpretation Comments Urine Protein (test code = 19614-1) NEGATIVE NEGATIVE [facility] Glucose (UA)2019-04-28 15:10:00* Test Item Value Reference Range Interpretation Comments Urine Glucose (UA) (test code = 75462-3) NEGATIVE NEGATIVE [facility] Cdvleqc2262-53-71 15:10:00* Test Item Value Reference Range Interpretation Comments Urine Ketones (test code = 23589-4) 1+ NEGATIVE H [facility] Zitgpppvmdof2833-61-52 15:10:00* Test Item Value Reference Range Interpretation Comments Urine Urobilinogen (test code = 52680-0) 0.2 0.2-1 [facility] Eefgqnyyh7868-67-28 15:10:00* Test Item Value Reference Range Interpretation Comments Urine Bilirubin (test code = 1977-8) NEGATIVE NEGATIVE [facility] Oeopu3494-66-97 15:10:00* Test Item Value Reference Range Interpretation Comments Urine Blood (test code = 28348-3) TRACE NEGATIVE H [facility] Vnmtl2151-08-81 15:09:00* Test Item Value Reference Range Interpretation Comments Sodium Level (test code = 2951-2) 134 136-145 L [facility]anoPotassium Lmeqr9234-95-97 15:09:00* Test Item Value Reference Range Interpretation Comments Potassium Level (test code = 2823-3) 5.0 3.5-5.1 [facility]anoChloride Pjoji1093-88-65 15:09:00* Test Item Value Reference Range Interpretation Comments Chloride Level (test code = 2075-0) 100 98-107 [facility] PlanoCarbon Dioxide Fvqfk2198-09-53 15:09:00* Test Item Value Reference Range Interpretation Comments Carbon Dioxide Level (test code = 2028-9) 20 22-29 L [facility] PlanoAnion Iuu2867-82-28 15:09:00* Test Item Value Reference Range Interpretation Comments Anion Gap (test code = 15331-3) 19.0 8-16 H [facility]anoBlood Urea Lqpqsllp0279-78-32 15:09:00* Test Item Value Reference Range Interpretation Comments Blood Urea Nitrogen (test code = 3094-0) 14 7-26 [facility]anoCreatinine2019-10-21 15:09:00* Test Item Value Reference Range Interpretation Comments Creatinine (test code = 2160-0) 0.82 0.57-1.11 [facility]anoBUN/Creatinine Lvhrh6626-54-14 15:09:00* Test Item Value Reference Range Interpretation Comments BUN/Creatinine Ratio (test code = 3097-3) 17 6-25 [facility] PlanoEstimat Glomerular Filtration Rate 2019-04-28 15:09:00* Test Item Value Reference Range Interpretation Comments Estimat Glomerular Filtration Rate (test code = 954829216) > 60 >60 Ranges were taken from the National Kidney Disease Education Program and the B[employer] replaced by [facility] [employer] literature.Reference ranges:60 or greater: Psedwq39-72 ( for 3 consecutive months): Chronic kidney disease 15 or less: Kidney failureTexas Health Presbyterian Hospital PlanoGlucose Gyihv7401-72-58 15:09:00* Test Item Value Reference Range Interpretation Comments Glucose Level (test code = MIE9188) 104 74-118 [facility]anoCalcium Upbkn8494-56-88 15:09:00* Test Item Value Reference Range Interpretation Comments Calcium Level (test code = 74781-2) 9.9 8.4-10.2 [facility]anoWhite Blood Uujji8963-59-44 14:49:00* Test Item Value Reference Range Interpretation Comments White Blood Count (test code = 6690-2) 7.98 4.8-10.8 [facility] PlanoRed Blood Tszjx9003-50-16 14:49:00* Test Item Value Reference Range Interpretation Comments Red Blood Count (test code = 789-8) 4.25 3.6-5.1 [facility]anoHemoglobin2019-10-21 14:49:00* Test Item Value Reference Range Interpretation Comments Hemoglobin (test code = 65052-3) 13.1 12.0-16.0 [facility]anoHematocrit2019-10-21 14:49:00* Test Item Value Reference Range Interpretation Comments Hematocrit (test code = 4544-3) 39.2 34.2-44.1 [facility]anoMean Corpuscular Ljsyzm5524-30-80 14:49:00* Test Item Value Reference Range Interpretation Comments Mean Corpuscular Volume (test code = 787-2) 92.2 81-99 [facility]anoMean Corpuscular Zkoyzlabay2066-45-90 14:49:00* Test Item Value Reference Range Interpretation Comments Mean Corpuscular Hemoglobin (test code = 785-6) 30.8 28-32 [facility]anoMean Corpuscular Hemoglobin Concent 2019-04-28 14:49:00* Test Item Value Reference Range Interpretation Comments Mean Corpuscular Hemoglobin Concent (test code = 786-4) 33.4 31-35 [facility] PlanoRed Cell Distribution Icocz7181-66-35 14:49:00* Test Item Value Reference Range Interpretation Comments Red Cell Distribution Width (test code = 91686-4) 12.5 11.7 -14.4 [facility] PlanoPlatelet Ryagd7099-40-84 14:49:00* Test Item Value Reference Range Interpretation Comments Platelet Count (test code = 777-3) 266 140-360 [facility]anoNeutrophils (%) (Auto)2019-04-28 14:49:00 * Test Item Value Reference Range Interpretation Comments Neutrophils (%) (Auto) (test code = 36591-8) 82.7 38.7-80.0 H [facility] PlanoLymphocytes (%) (Auto)2019-04-28 14:49:00 * Test Item Value Reference Range Interpretation Comments Lymphocytes (%) (Auto) (test code = 736-9) 10.5 18.0-39.1 L [facility]anoMonocytes (%) (Auto)2019-04-28 14:49:00* Test Item Value Reference Range Interpretation Comments Monocytes (%) (Auto) (test code = 5905-5) 5.4 4.4-11.3 [facility]anoEosinophils (%) (Auto)2019-04-28 14:49:00 * Test Item Value Reference Range Interpretation Comments Eosinophils (%) (Auto) (test code = 713-8) 0.5 0.0-6.0 [facility]anoBasophils (%) (Auto)2019-04-28 14:49:00* Test Item Value Reference Range Interpretation Comments Basophils (%) (Auto) (test code = 706-2) 0.5 0.0-1.0 [facility]anoIM GRANULOCYTES %2019-04-28 14:49:00* Test Item Value Reference Range Interpretation Comments IM GRANULOCYTES % (test code = IM GRANULOCYTES %) 0.4 0.0- 1.0 [facility]anoNeutrophils # (Auto)2019-04-28 14:49:00* Test Item Value Reference Range Interpretation Comments Neutrophils # (Auto) (test code = 751-8) 6.6 2.1-6.9 [facility]anoLymphocytes # (Auto)2019-04-28 14:49:00* Test Item Value Reference Range Interpretation Comments Lymphocytes # (Auto) (test code = 21533-1) 0.8 1.0-3.2 L [facility]anoMonocytes # (Auto)2019-04-28 14:49:00* Test Item Value Reference Range Interpretation Comments Monocytes # (Auto) (test code = 742-7) 0.4 0.2-0.8 [facility]anoEosinophils # (Auto)2019-04-28 14:49:00* Test Item Value Reference Range Interpretation Comments Eosinophils # (Auto) (test code = 711-2) 0.0 0.0-0.4 [facility]anoBasophils # (Auto)2019-04-28 14:49:00* Test Item Value Reference Range Interpretation Comments Basophils # (Auto) (test code = 704-7) 0.0 0.0-0.1 [facility]anoAbsolute Immature Granulocyte (auto 2019-04-28 14:49:00* Test Item Value Reference Range Interpretation Comments Absolute Immature Granulocyte (auto (lionel t code = Absolute Immature Granulocyte (auto) 0.03 0-0.1 [facility]anoURINALYSIS DFAFBDGB1604-25-31 22:55:00* Test Item Value Reference Range Interpretation [...] A Urine Source? Clean CatchKNEE THREE VIEWS LAUKCNXXJ2240-74-82 14:30:00 [place] [address] Patient Name: SHARLENE MOORE MR #: [id number] : 1935 Age/Sex: 84/F Req #: [id number] Adm Physician: Ordered by: FAVIOLA BAEZ Report #: [id number] Location: [facility] Room/Bed: Procedure: [id number] DX/KN EE THREE VIEWS BILATERAL Exam Date: [...] BAEZ (NON STAFF) SP LUMBAR AP LATERAL 9-0FPZ6182-873UIS4366-37-46 14:26:00 [place] [address] Patient Name: SHARLENE MOORE MR #: [id number] : 1935 Age/Sex: 84/F Req #: [id number] Adm Physician: Ordered by: FAVIOLA BAEZ Report #: [id number] Location: RAD Room/Bed: Procedure: [id number] DX/SP LUMBAR AP LATERAL 2-3VWS Exam Date: [...] QUIÑONES MD 26 Transcribed By: JOHN on 03/21/19 142 COPY TO: FAVIOLA RODRIGUEZ (NON STAFF) CERVICAL 3 NAOWZ7052-32-67 14:23:00 [place] [address] Patient Name: SHARLENE MOORE MR #: [id number] : 1935 Age/Sex: 84/F Req #: [id number] Adm Physician: Ordered by: FAVIOLA BAEZ Report #: [id number] Location: RAD Room/Bed: Procedure: DX/CE RVICAL 3 VIEWS Exam Date: 03/21/19 [...] ly Signed By: JAEL QUIÑONES MD on 03/21/19 1424 Transcribed By: JOHN on 1424 COPY TO: FAVIOLA BAEZ (NON STAFF) CHEST SINGLE (PORTABLE)2019-02-10 20:14:00 [place] [address] Patient Name: SHARLENE MOORE MR #: [id number] : 1935 Age/Sex: 84/F Req #: [id number] Adm Physician: Ordered by: EMILY ABDULLAHI MD Report #: [id number] Location: ER Room/Bed: Procedure: DX/C HEST SINGLE (PORTABLE) Exam Date: 02/10/19 [...] 0 02/10/192013 COPY TO: EMILY ABDULLAHI MD Creatine Kinase MB 2019-02-10 19:20:00* Test Item Value Reference Range Interpretation Comments Creatine Kinase MB (test code = 38637-1) 0.60 0-5.0 [facility] O1674-04-23 19:20:00* Test Item Value Reference Range Interpretation Comments Troponin I (test code = DRL7712) < 0.001 0-0.300 [facility]anoThyroid Stimulating Hormone (TSH) 2019-02-10 19:20:00* Test Item Value Reference Range Interpretation Comments Thyroid Stimulating Hormone (TSH) (test code = 11905-7) 1.311 0.350-4.940 [facility]anoCreatine Kinase ZX5825-79-05 19:20:00* Test Item Value Reference Range Interpretation Comments Creatine Kinase MB (test code = 94395-4) 0.60 0-5.0 [facility]anoTroponin K6880-69-60 19:20:00* Test Item Value Reference Range Interpretation Comments Troponin I (test code = KZQ3114) < 0.001 0-0.300 [facility]anoThyroid Stimulating Hormone (TSH) 2019-02-10 19:20:00* Test Item Value Reference Range Interpretation Comments Thyroid Stimulating Hormone (TSH) (test code = 40711-9) 1.311 0.350-4.940 [facility]anoThyroid Stimulating Hormone (TSH) 2019-02-10 19:20:00* Test Item Value Reference Range Interpretation Comments Thyroid Stimulating Hormone (TSH) (test code = 82088-6) 1.311 0.350-4.940 [facility] Obnzy5132-27-14 18:57:00* Test Item Value Reference Range Interpretation Comments Sodium Level (test code = 2951-2) 137 136-145 [facility]anoPotassium Ihryg0388-78-90 18:57:00* Test Item Value Reference Range Interpretation Comments Potassium Level (test code = 2823-3) 4.1 3.5-5.1 [facility]anoChloride Oyngn2948-41-35 18:57:00* Test Item Value Reference Range Interpretation Comments Chloride Level (test code = 2075-0) 102 98-107 [facility] PlanoCarbon Dioxide Ntfwp6439-67-87 18:57:00* Test Item Value Reference Range Interpretation Comments Carbon Dioxide Level (test code = 2028-9) 24 22-29 [facility] PlanoAnion Pgr5686-11-77 18:57:00* Test Item Value Reference Range Interpretation Comments Anion Gap (test code = 97078-8) 15.1 8-16 [facility]anoBlood Urea Biewrntt9457-01-67 18:57:00* Test Item Value Reference Range Interpretation Comments Blood Urea Nitrogen (test code = 3094-0) 11 7-26 [facility] [place]Creatinine2019-08-05 18:57:00* Test Item Value Reference Range Interpretation Comments Creatinine (test code = 2160-0) 0.75 0.57-1.11 [facility]anoBUN[facility]Creatinine Kfqoh5946-64-31 18:57:00* Test Item Value Reference Range Interpretation Comments BUN/Creatinine Ratio (test code = 3097-3) 15 6-25 [facility] [place]anoEstimat Glomerular Filtration Rate 2019-02-10 18:57:00* Test Item Value Reference Range Interpretation Comments Estimat Glomerular Filtration Rate (test code = 890950022) > 60 >60 Ranges were taken from the National Kidney Disease Education Program and the [facility] literature.Reference ranges:60 or greater: Gyljko11-33 ( for 3 consecutive months): Chronic kidney disease 15 or less: Kidney failureTexas [facility] PlanoGlucose Ttnpd9577-38-57 18:57:00* Test Item Value Reference Range Interpretation Comments Glucose Level (test code = VZR0043) 103 74-118 [facility] [place]anoCalcium Mdnqw2105-48-30 18:57:00* Test Item Value Reference Range Interpretation Comments Calcium Level (test code = 22654-0) 9.1 8.4-10.2 [facility] [place]anoTotal Gjknlypuf7287-07-31 18:57:00* Test Item Value Reference Range Interpretation Comments Total Bilirubin (test code = 1975-2) 0.2 0.2-1.2 [facility] PlanoAspartate Amino Transf (AST/SGOT) 2019-02-10 18:57:00* Test Item Value Reference Range Interpretation Comments Aspartate Amino Transf (AST/SGOT) (test code = Aspartate Amino Transf (AST/SGOT)) 19 5-34 [facility] [place]anoAlanine Aminotransferase (ALT/SGPT) 2019-02-10 18:57:00* Test Item Value Reference Range Interpretation Comments Alanine Aminotransferase (ALT/SGPT) (test code = 1742-6) 12 0-55 [facility] [place]anoTotal Mzrmshz0464-75-94 18:57:00* Test Item Value Reference Range Interpretation Comments Total Protein (test code = 2885-2) 6.9 6.5-8.1 [facility] [place]anoAlbumin2019-08-05 18:57:00* Test Item Value Reference Range Interpretation Comments Albumin (test code = 1751-7) 3.5 3.5-5.0 [facility] [place]anoGlobulin2019-08-05 18:57:00* Test Item Value Reference Range Interpretation Comments Globulin (test code = 00440-6) 3.4 2.3-3.5 [facility] [place]anoAlbumin/Globulin Pwksn8940-99-66 18:57:00 * Test Item Value Reference Range Interpretation Comments Albumin/Globulin Ratio (test code = 1759-0) 1.0 0.8-2.0 [facility] [place]anoAlkaline Owijfrpcebh7108-41-85 18:57:00* Test Item Value Reference Range Interpretation Comments Alkaline Phosphatase (test code = 6768-6) 85 40-150 [facility] PlanoCreatine Cjpnxi8460-57-77 18:57:00* Test Item Value Reference Range Interpretation Comments Creatine Kinase (test code = 2157-6) 37 29-168 [facility] [place]anoTotal Sipflrnew8757-58-94 18:57:00* Test Item Value Reference Range Interpretation Comments Total Bilirubin (test code = 1975-2) 0.2 0.2-1.2 [facility] [place]anoAspartate Amino Transf (AST/SGOT) 2019-02-10 18:57:00* Test Item Value Reference Range Interpretation Comments Aspartate Amino Transf (AST/SGOT) (test code = Aspartate Amino Transf (AST/SGOT)) 19 5-34 [facility] [place]anoAlanine Aminotransferase (ALT/SGPT) 2019-02-10 18:57:00* Test Item Value Reference Range Interpretation Comments Alanine Aminotransferase (ALT/SGPT) (test code = 1742-6) 12 0-55 [facility] [place]anoTotal Xdiahpa7837-92-10 18:57:00* Test Item Value Reference Range Interpretation Comments Total Protein (test code = 2885-2) 6.9 6.5-8.1 [facility] [place]anoAlbumin2019-08-05 18:57:00* Test Item Value Reference Range Interpretation Comments Albumin (test code = 1751-7) 3.5 3.5-5.0 [facility] [place]anoGlobulin2019-08-05 18:57:00* Test Item Value Reference Range Interpretation Comments Globulin (test code = 92657-4) 3.4 2.3-3.5 [facility] [place]anoAlbumin/Globulin Wqadj5022-00-38 18:57:00 * Test Item Value Reference Range Interpretation Comments Albumin/Globulin Ratio (test code = 1759-0) 1.0 0.8-2.0 [facility] [place]anoAlkaline Mcpbetfwkah5403-28-84 18:57:00* Test Item Value Reference Range Interpretation Comments Alkaline Phosphatase (test code = 6768-6) 85 40-150 [facility] [place]anoCreatine Eectte8142-94-90 18:57:00* Test Item Value Reference Range Interpretation Comments Creatine Kinase (test code = 2157-6) 37 29-168 [facility] PlanoProthrombin Fiye0000-99-99 18:49:00* Test Item Value Reference Range Interpretation Comments Prothrombin Time (test code = 5902-2) 12.1 11.9-14.5 [facility] PlanoProthromb Time International Ratio 2019-02-10 18:49:00* Test Item Value Reference Range Interpretation Comments Prothromb Time International Ratio (test code = 6301-6) 0.85 Oral Anticoagulant Therapy INR Values:1. Low Intensity Therapy 1.5 - 2.02 . Moderate Intensity Therapy 2.0 - 3.03. High Intensity Therapy(1) 2.5 - 3. 54. High Intensity Therapy(2) 3.0 - 4.05. Panic Value INR > 5.0 [facility] PlanoActivated Partial Thromboplast Time 2019-02-10 18:49:00* Test Item Value Reference Range Interpretation Comments Activated Partial Thromboplast Time (test code = 35908-2) 29.7 23.8-35.5 [facility] [place]anoProthrombin Shjv8781-71-05 18:49:00* Test Item Value Reference Range Interpretation Comments Prothrombin Time (test code = 5902-2) 12.1 11.9-14.5 [facility] [place]anoProthromb Time International Ratio 2019-02-10 18:49:00* Test Item Value Reference Range Interpretation Comments Prothromb Time International Ratio (test code = 6301-6) 0.85 Oral Anticoagulant Therapy INR Values:1. Low Intensity Therapy 1.5 - 2.02 . Moderate Intensity Therapy 2.0 - 3.03. High Intensity Therapy(1) 2.5 - 3. 54. High Intensity Therapy(2) 3.0 - 4.05. Panic Value INR > 5.0 [facility] [place]anoActivated Partial Thromboplast Time 2019-02-10 18:49:00* Test Item Value Reference Range Interpretation Comments Activated Partial Thromboplast Time (test code = 96990-5) 29.7 23.8-35.5 [facility] PlanoProthrombin Khnn3694-79-76 18:49:00* Test Item Value Reference Range Interpretation Comments Prothrombin Time (test code = 5902-2) 12.1 11.9-14.5 [facility] [place]anoProthromb Time International Ratio 2019-02-10 18:49:00* Test Item Value Reference Range Interpretation Comments Prothromb Time International Ratio (test code = 6301-6) 0.85 Oral Anticoagulant Therapy INR Values:1. Low Intensity Therapy 1.5 - 2.02 . Moderate Intensity Therapy 2.0 - 3.03. High Intensity Therapy(1) 2.5 - 3. 54. High Intensity Therapy(2) 3.0 - 4.05. Panic Value INR > 5.0 [facility] [place]anoActivated Partial Thromboplast Time 2019-02-10 18:49:00* Test Item Value Reference Range Interpretation Comments Activated Partial Thromboplast Time (test code = 29042-4) 29.7 23.8-35.5 [facility] [place]anoWhite Blood Qchcj4417-71-30 18:44:00* Test Item Value Reference Range Interpretation Comments White Blood Count (test code = 6690-2) 6.37 4.8-10.8 [facility] PlanoRed Blood Cfbrs4828-53-45 18:44:00* Test Item Value Reference Range Interpretation Comments Red Blood Count (test code = 789-8) 3.68 3.6-5.1 [facility] PlanoHemoglobin2019-08-05 18:44:00* Test Item Value Reference Range Interpretation Comments Hemoglobin (test code = 11688-6) 11.6 12.0-16.0 L [facility] PlanoHematocrit2019-08-05 18:44:00* Test Item Value Reference Range Interpretation Comments Hematocrit (test code = 4544-3) 35.3 34.2-44.1 [facility] [place]anoMean Corpuscular Ntdqnc6404-20-94 18:44:00* Test Item Value Reference Range Interpretation Comments Mean Corpuscular Volume (test code = 787-2) 95.9 81-99 [facility] [place]anoMean Corpuscular Snecuqbabu6210-47-56 18:44:00* Test Item Value Reference Range Interpretation Comments Mean Corpuscular Hemoglobin (test code = 785-6) 31.5 28-32 [facility] [place]anoMean Corpuscular Hemoglobin Concent 2019-02-10 18:44:00* Test Item Value Reference Range Interpretation Comments Mean Corpuscular Hemoglobin Concent (test code = 786-4) 32.9 31-35 [facility] PlanoRed Cell Distribution Ehddy3793-81-22 18:44:00* Test Item Value Reference Range Interpretation Comments Red Cell Distribution Width (test code = 76188-4) 12.2 11.7 -14.4 [facility] PlanoPlatelet Rlnuz4189-29-11 18:44:00* Test Item Value Reference Range Interpretation Comments Platelet Count (test code = 777-3) 265 140-360 [facility] PlanoNeutrophils (%) (Auto)2019-02-10 18:44:00 * Test Item Value Reference Range Interpretation Comments Neutrophils (%) (Auto) (test code = 13300-0) 77.2 38.7-80.0 [facility] PlanoLymphocytes (%) (Auto)2019-02-10 18:44:00 * Test Item Value Reference Range Interpretation Comments Lymphocytes (%) (Auto) (test code = 736-9) 12.9 18.0-39.1 L [facility] [place]anoMonocytes (%) (Auto)2019-02-10 18:44:00* Test Item Value Reference Range Interpretation Comments Monocytes (%) (Auto) (test code = 5905-5) 7.8 4.4-11.3 [facility] [place]anoEosinophils (%) (Auto)2019-02-10 18:44:00 * Test Item Value Reference Range Interpretation Comments Eosinophils (%) (Auto) (test code = 713-8) 1.3 0.0-6.0 [facility] [place]anoBasophils (%) (Auto)2019-02-10 18:44:00* Test Item Value Reference Range Interpretation Comments Basophils (%) (Auto) (test code = 706-2) 0.5 0.0-1.0 [facility] [place]anoIM GRANULOCYTES %2019-02-10 18:44:00* Test Item Value Reference Range Interpretation Comments IM GRANULOCYTES % (test code = IM GRANULOCYTES %) 0.3 0.0- 1.0 [facility] [place]anoNeutrophils # (Auto)2019-02-10 18:44:00* Test Item Value Reference Range Interpretation Comments Neutrophils # (Auto) (test code = 751-8) 4.9 2.1-6.9 [facility] PlanoLymphocytes # (Auto)2019-02-10 18:44:00* Test Item Value Reference Range Interpretation Comments Lymphocytes # (Auto) (test code = 05849-2) 0.8 1.0-3.2 L [facility] [place]anoMonocytes # (Auto)2019-02-10 18:44:00* Test Item Value Reference Range Interpretation Comments Monocytes # (Auto) (test code = 742-7) 0.5 0.2-0.8 [facility]anoEosinophils # (Auto)2019-02-10 18:44:00* Test Item Value Reference Range Interpretation Comments Eosinophils # (Auto) (test code = 711-2) 0.1 0.0-0.4 [facility]anoBasophils # (Auto)2019-02-10 18:44:00* Test Item Value Reference Range Interpretation Comments Basophils # (Auto) (test code = 704-7) 0.0 0.0-0.1 [facility] PlanoAbsolute Immature Granulocyte (auto 2019-02-10 18:44:00* Test Item Value Reference Range Interpretation Comments Absolute Immature Granulocyte (auto (lionel t code = Absolute Immature Granulocyte (auto) 0.02 0-0.1 [facility] PlanoUrine [id number] 18:33:00* Test Item Value Reference Range Interpretation Comments Urine WBC (test code = 5821-4) 0-5 0-5 [facility] PlanoUrine [id number] 18:33:00* Test Item Value Reference Range Interpretation Comments Urine RBC (test code = 99682-6) 0-5 0-5 [facility] PlanoUrine Mkcrlvvt3505-31-19 18:33:00* Test Item Value Reference Range Interpretation Comments Urine Bacteria (test code = 83227-1) RARE NONE [facility] PlanoUrine Epithelial Cxuvq9911-31-16 18:33:00 * Test Item Value Reference Range Interpretation Comments Urine Epithelial Cells (test code = 34834-6) NONE NONE [facility] PlanoUrine Aqzsy8822-95-18 18:08:00* Test Item Value Reference Range Interpretation Comments Urine Color (test code = 5778-6) YELLOW YELLOW [facility] PlanoUrine Sjefony1120-90-23 18:08:00* Test Item Value Reference Range Interpretation Comments Urine Clarity (test code = 94436-8) CLEAR CLEAR [facility] PlanoUrine Specific Fktsxxh7499-47-43 18:08:00 * Test Item Value Reference Range Interpretation Comments Urine Specific [place] (test code = 5811-5) 1.005 1.010-1.02 5 L [facility] PlanoUrine qD5455-94-40 18:08:00* Test Item Value Reference Range Interpretation Comments Urine pH (test code = 46895-8) 7 5-7 [facility] PlanoUrine Leukocyte Ocgytcor7542-72-64 18:08:00* Test Item Value Reference Range Interpretation Comments Urine Leukocyte Esterase (test code = 5799-2) TRACE NEGATIVE H [facility] PlanoUrine Ldmnyqd3981-32-85 18:08:00* Test Item Value Reference Range Interpretation Comments Urine Nitrite (test code = 60426-0) NEGATIVE NEGATIVE [facility] PlanoUrine Boxelmc7134-70-73 18:08:00* Test Item Value Reference Range Interpretation Comments Urine Protein (test code = 5804-0) NEGATIVE NEGATIVE [facility] PlanoUrine Glucose (UA)2019-02-10 18:08:00* Test Item Value Reference Range Interpretation Comments Urine Glucose (UA) (test code = 2349-9) NEGATIVE NEGATIVE [facility] PlanoUrine Pbuafzh7482-08-12 18:08:00* Test Item Value Reference Range Interpretation Comments Urine Ketones (test code = 74516-3) NEGATIVE NEGATIVE [facility] PlanoUrine Bqycpbsjqvgm5215-12-95 18:08:00* Test Item Value Reference Range Interpretation Comments Urine Urobilinogen (test code = 94140-6) 0.2 0.2-1 [facility]anoUrine Iaezqvbpd3879-08-34 18:08:00* Test Item Value Reference Range Interpretation Comments Urine Bilirubin (test code = 1978-6) NEGATIVE NEGATIVE [facility] PlanoUrine Tyvag7025-30-38 18:08:00* Test Item Value Reference Range Interpretation Comments Urine Blood (test code = 05722-6) TRACE NEGATIVE H [facility] PlanoURINALYSIS DPGLZQVM6423-66-74 12:37:00* Test Item Value Reference Range Interpretation [...] per HPF NONE Urine Source? Clean CatchURINALYSIS TRANPQJY2813-96-77 12:29:00* Test Item Value Reference Range Interpretation [...] BACU) per HPF NONE Urine Source? Clean CatchBedside Qajzfnt4172-90-64 08:01:00* Test Item Value Reference Range Interpretation Comments Bedside Glucose (test code = 71648-8) 115 70-120 Meter ID: [id number] [facility] 2018-08-29 08:01:00* Test Item Value Reference Range Interpretation Comments Bedside Glucose (test code = 62014-1) 115 70-120 Meter ID: [id number] [facility] 2018-08-11 17:09:00 [place] [address] Patient Name: SHARLENE MOORE MR #: [id number] : 1935 Age/Sex: 83/F Req #: [id number] Adm Physician: Ordered by: DAVIDA ENAMORADO MD Report #: [id number] Location: ER Room/Bed: Procedure: [id number] CT /CT ABDOMEN/PELVIS WO Exam Date: 08/11/18 [...] on 08/11/181712 COPY TO: DAVIDA ENAMORADO MD Sodium Mmtqo0981-23-00 16:07:00* Test Item Value Reference Range Interpretation Comments Sodium Level (test code = 2951-2) 139 136-145 [facility] PlanoPotassium Sqkqy6623-12-41 16:07:00* Test Item Value Reference Range Interpretation Comments Potassium Level (test code = 2823-3) 4.0 3.5-5.1 [facility] PlanoChloride Axfcn3583-42-67 16:07:00* Test Item Value Reference Range Interpretation Comments Chloride Level (test code = 2075-0) 102 98-107 [facility] PlanoCarbon Dioxide Qudvc3275-84-29 16:07:00* Test Item Value Reference Range Interpretation Comments Carbon Dioxide Level (test code = 2028-9) 26 22-29 [facility] PlanoAnion Tho7176-51-34 16:07:00* Test Item Value Reference Range Interpretation Comments Anion Gap (test code = 18140-5) 15.0 8-16 [facility] PlanoBlood Urea Awakgwdb1158-32-71 16:07:00* Test Item Value Reference Range Interpretation Comments Blood Urea Nitrogen (test code = 3094-0) 8 7-26 [facility] PlanoCreatinine2019-02-03 16:07:00* Test Item Value Reference Range Interpretation Comments Creatinine (test code = 2160-0) 0.75 0.57-1.11 [facility]anoBUN/Creatinine Toxnz5949-70-29 16:07:00* Test Item Value Reference Range Interpretation Comments BUN/Creatinine Ratio (test code = 3097-3) 11 6-25 [facility] PlanoEstimat Glomerular Filtration Rate 2018-08-11 16:07:00* Test Item Value Reference Range Interpretation Comments Estimat Glomerular Filtration Rate (test code = 390278736) > 60 >60 Ranges were taken from the National Kidney Disease Education Program and the [facility] literature.Reference ranges:60 or greater: Amxqhy75-31 ( for 3 consecutive months): Chronic kidney disease 15 or less: Kidney failureTexas [facility] Hospital PlanoGlucose Vihea8200-08-57 16:07:00* Test Item Value Reference Range Interpretation Comments Glucose Level (test code = ELR3227) 100 74-118 [facility] PlanoCalcium Ytgnu7819-38-13 16:07:00* Test Item Value Reference Range Interpretation Comments Calcium Level (test code = 62742-2) 9.3 8.4-10.2 [facility]anoTotal Abgvtfdhu5387-93-04 16:07:00* Test Item Value Reference Range Interpretation Comments Total Bilirubin (test code = 1975-2) 0.4 0.2-1.2 [facility] PlanoAspartate Amino Transf (AST/SGOT) 2018-08-11 16:07:00* Test Item Value Reference Range Interpretation Comments Aspartate Amino Transf (AST/SGOT) (test code = Aspartate Amino Transf (AST/SGOT)) 28 5-34 [facility] PlanoAlanine Aminotransferase (ALT/SGPT) 2018-08-11 16:07:00* Test Item Value Reference Range Interpretation Comments Alanine Aminotransferase (ALT/SGPT) (test code = 1742-6) 22 0-55 [facility] PlanoTotal Xtigbro5863-88-87 16:07:00* Test Item Value Reference Range Interpretation Comments Total Protein (test code = 2885-2) 7.1 6.5-8.1 [facility] PlanoAlbumin2019-02-03 16:07:00* Test Item Value Reference Range Interpretation Comments Albumin (test code = 1751-7) 4.1 3.5-5.0 [facility] PlanoGlobulin2019-02-03 16:07:00* Test Item Value Reference Range Interpretation Comments Globulin (test code = 73407-0) 3.0 2.3-3.5 [facility] PlanoAlbumin/Globulin Fqqoh9216-69-96 16:07:00 * Test Item Value Reference Range Interpretation Comments Albumin/Globulin Ratio (test code = 1759-0) 1.4 0.8-2.0 [facility] PlanoAlkaline Njflrszkjtf4920-63-02 16:07:00* Test Item Value Reference Range Interpretation Comments Alkaline Phosphatase (test code = 6768-6) 69 40-150 [facility] PlanoUrine NQO2511-04-14 16:03:00* Test Item Value Reference Range Interpretation Comments Urine WBC (test code = 5821-4) 11-20 0-5 H [facility] PlanoUrine EYI2281-23-20 16:03:00* Test Item Value Reference Range Interpretation Comments Urine RBC (test code = 79520-4) 0-5 0-5 [facility] PlanoUrine Cyvwjmiw6884-05-04 16:03:00* Test Item Value Reference Range Interpretation Comments Urine Bacteria (test code = 79440-4) FEW NONE [facility] PlanoUrine Epithelial Mpibe1221-72-00 16:03:00 * Test Item Value Reference Range Interpretation Comments Urine Epithelial Cells (test code = 04657-8) FEW NONE [facility] PlanoUrine Aqstt3989-98-85 15:59:00* Test Item Value Reference Range Interpretation Comments Urine Color (test code = 5778-6) YELLOW YELLOW [facility] PlanoUrine Okpzazi2341-16-19 15:59:00* Test Item Value Reference Range Interpretation Comments Urine Clarity (test code = 51338-7) CLEAR CLEAR [facility] PlanoUrine Specific Ovbdmks5577-20-41 15:59:00 * Test Item Value Reference Range Interpretation Comments Urine Specific [place] (test code = 5811-5) 1.000 1.010-1.02 5 L [facility] PlanoUrine [id number] 15:59:00* Test Item Value Reference Range Interpretation Comments Urine pH (test code = 06401-6) 7 5-7 [facility] PlanoUrine Leukocyte Vfdonnfd2058-06-45 15:59:00* Test Item Value Reference Range Interpretation Comments Urine Leukocyte Esterase (test code = 5799-2) 1+ NEGATIVE H [facility] PlanoUrine Waymfnh1080-48-28 15:59:00* Test Item Value Reference Range Interpretation Comments Urine Nitrite (test code = 53336-8) NEGATIVE NEGATIVE [facility] PlanoUrine Qhjuahn8924-64-94 15:59:00* Test Item Value Reference Range Interpretation Comments Urine Protein (test code = 5804-0) NEGATIVE NEGATIVE [facility]anoUrine Glucose (UA)2018-08-11 15:59:00* Test Item Value Reference Range Interpretation Comments Urine Glucose (UA) (test code = 2349-9) NEGATIVE NEGATIVE [facility] PlanoUrine Idrjfta9270-72-12 15:59:00* Test Item Value Reference Range Interpretation Comments Urine Ketones (test code = 95859-5) NEGATIVE NEGATIVE [facility] PlanoUrine Srkpadywifqe9958-12-92 15:59:00* Test Item Value Reference Range Interpretation Comments Urine Urobilinogen (test code = 55149-0) 0.2 0.2-1 [facility]anoUrine Agwvmxfyz7857-17-49 15:59:00* Test Item Value Reference Range Interpretation Comments Urine Bilirubin (test code = 1978-6) NEGATIVE NEGATIVE [facility] PlanoUrine Duzlt7079-25-95 15:59:00* Test Item Value Reference Range Interpretation Comments Urine Blood (test code = 46483-3) NEGATIVE NEGATIVE [facility] PlanoWhite Blood Dapkf8005-35-46 15:53:00* Test Item Value Reference Range Interpretation Comments White Blood Count (test code = 6690-2) 6.17 4.8-10.8 [facility] PlanoRed Blood Zkymz1983-17-67 15:53:00* Test Item Value Reference Range Interpretation Comments Red Blood Count (test code = 789-8) 3.77 3.6-5.1 [facility] PlanoHemoglobin2019-02-03 15:53:00* Test Item Value Reference Range Interpretation Comments Hemoglobin (test code = 79447-9) 12.6 12.0-16.0 [facility]anoHematocrit2019-02-03 15:53:00* Test Item Value Reference Range Interpretation Comments Hematocrit (test code = 4544-3) 35.8 34.2-44.1 [facility] PlanoMean Corpuscular Whdxlw4030-02-45 15:53:00* Test Item Value Reference Range Interpretation Comments Mean Corpuscular Volume (test code = 787-2) 95.0 81-99 [facility]anoMean Corpuscular Ugrauhbbdq0345-64-91 15:53:00* Test Item Value Reference Range Interpretation Comments Mean Corpuscular Hemoglobin (test code = 785-6) 33.4 28-32 H [facility]anoMean Corpuscular Hemoglobin Concent 2018-08-11 15:53:00* Test Item Value Reference Range Interpretation Comments Mean Corpuscular Hemoglobin Concent (test code = 786-4) 35.2 31-35 H [facility] PlanoRed Cell Distribution Ogqhd2117-76-40 15:53:00* Test Item Value Reference Range Interpretation Comments Red Cell Distribution Width (test code = 98799-9) 12.4 11.7 -14.4 [facility] PlanoPlatelet Uksqw2635-41-33 15:53:00* Test Item Value Reference Range Interpretation Comments Platelet Count (test code = 777-3) 266 140-360 [facility] PlanoNeutrophils (%) (Auto)2018-08-11 15:53:00 * Test Item Value Reference Range Interpretation Comments Neutrophils (%) (Auto) (test code = 88225-3) 77.1 38.7-80.0 [facility] PlanoLymphocytes (%) (Auto)2018-08-11 15:53:00 * Test Item Value Reference Range Interpretation Comments Lymphocytes (%) (Auto) (test code = 736-9) 14.1 18.0-39.1 L [facility] (%) (Auto)2018-08-11 15:53:00* Test Item Value Reference Range Interpretation Comments Monocytes (%) (Auto) (test code = 5905-5) 6.6 4.4-11.3 [facility]osinophils (%) (Auto)2018-08-11 15:53:00 * Test Item Value Reference Range Interpretation Comments Eosinophils (%) (Auto) (test code = 713-8) 1.1 0.0-6.0 [facility]Basophils (%) (Auto)2018-08-11 15:53:00* Test Item Value Reference Range Interpretation Comments Basophils (%) (Auto) (test code = 706-2) 0.8 0.0-1.0 [facility]anoIM GRANULOCYTES %2018-08-11 15:53:00* Test Item Value Reference Range Interpretation Comments IM GRANULOCYTES % (test code = IM GRANULOCYTES %) 0.3 0.0- 1.0 [facility]anoNeutrophils # (Auto)2018-08-11 15:53:00* Test Item Value Reference Range Interpretation Comments Neutrophils # (Auto) (test code = 751-8) 4.8 2.1-6.9 [facility]anoLymphocytes # (Auto)2018-08-11 15:53:00* Test Item Value Reference Range Interpretation Comments Lymphocytes # (Auto) (test code = 86002-3) 0.9 1.0-3.2 L [facility]anoMonocytes # (Auto)2018-08-11 15:53:00* Test Item Value Reference Range Interpretation Comments Monocytes # (Auto) (test code = 742-7) 0.4 0.2-0.8 [facility]Eosinophils # (Auto)2018-08-11 15:53:00* Test Item Value Reference Range Interpretation Comments Eosinophils # (Auto) (test code = 711-2) 0.1 0.0-0.4 [facility]Basophils # (Auto)2018-08-11 15:53:00* Test Item Value Reference Range Interpretation Comments Basophils # (Auto) (test code = 704-7) 0.1 0.0-0.1 [facility]anoAbsolute Immature Granulocyte (auto 2018-08-11 15:53:00* Test Item Value Reference Range Interpretation Comments Absolute Immature Granulocyte (auto (lionel t code = Absolute Immature Granulocyte (auto) 0.02 0-0.1 [facility]anoBONE DXA DUAL NYSATE8907-30-59 15:50:00 [facility] [address] [address] Patient Name: SHARLENE MOORE MR #: [id number] : 1935 Age/Sex: 83/F Req #: [id number] Adm Physician: Ordered by: LIGIA WEST DO Report #: [id number] Location: DX Room/Bed: Procedure: [id number] DX/B ONE DXA DUAL ENERGY Exam Date: Exam Time: REPORT STATUS: Signed EXAM: BONE MINERAL DENSITY HISTORY: Bone mineralization evaluation COMPARISON: None DISCU SSION: Evaluation of the left hip and lumbar spine was performed utilizing eCardio Hologic bone densitometer. The study is technically [...] PM Dictated By: ALMA ROSA LUNA MD [id number] Transcribed By: JOHN on 6301 COPY TO: LIGIA WEST DO Urine Gijvfjobum1364-45-71 22:38:00* Test Item Value Reference Range Interpretation Comments Urine Osmolality (test code = 2695-5) 136 . 24 hr : 300 - 900 Random: 50 - 1400 After 12hr fluid restriction: >850Performed at: HD - [facility] [address] [id number] Director: Lauri Read MD, Phone: [phone] Health Presbyterian Hospital PlanoUrine Osmolality 2018-07-22 22:38:00* Test Item Value Reference Range Interpretation Comments Urine Osmolality (test code = 2695-5) 136 . 24 hr : 300 - 900 Random: 50 - 1400 After 12hr fluid restriction: >850Performed at: HD - [facility] [address] [id number] Director: Lauri Read MD, Phone: [phone] Health Presbyterian Hospital PlanoUrine Osmolality 2018-07-22 22:38:00* Test Item Value Reference Range Interpretation Comments Urine Osmolality (test code = 2695-5) 136 . 24 hr : 300 - 900 Random: 50 - 1400 After 12hr fluid restriction: >850Performed at: HD - [facility] [address] [id number] Director: Lauri Read MD, Phone: [phone] Medical Center Glucose 2018-07-21 11:40:00* Test Item Value Reference Range Interpretation Comments Bedside Glucose (test code = 08669-9) 145 70-120 H Meter ID: [id number] Medical Center Glucose 2018-07-21 11:40:00* Test Item Value Reference Range Interpretation Comments Bedside Glucose (test code = 29503-8) 145 70-120 H Meter ID: [id number] Hermann Sugar Land Hospitalodium Level 2018-07-21 06:52:00* Test Item Value Reference Range Interpretation Comments Sodium Level (test code = 2951-2) 137 136-145 [facility] Centerassium Beiuw0162-32-69 06:52:00* Test Item Value Reference Range Interpretation Comments Potassium Level (test code = 2823-3) 4.2 3.5-5.1 [facility]anoChloride Fmjpq3467-20-62 06:52:00* Test Item Value Reference Range Interpretation Comments Chloride Level (test code = 2075-0) 104 98-107 [facility] PlanoCarbon Dioxide Bcbxu9815-27-07 06:52:00* Test Item Value Reference Range Interpretation Comments Carbon Dioxide Level (test code = 2028-9) 24 22-29 [facility]anoAnion Fpn7515-87-19 06:52:00* Test Item Value Reference Range Interpretation Comments Anion Gap (test code = 50708-5) 13.2 8-16 [facility]anoBlood Urea Nltndohv5733-65-13 06:52:00* Test Item Value Reference Range Interpretation Comments Blood Urea Nitrogen (test code = 3094-0) 13 7-26 [facility]anoCreatinine2019-01-13 06:52:00* Test Item Value Reference Range Interpretation Comments Creatinine (test code = 2160-0) 0.72 0.57-1.11 [facility]anoBUN/Creatinine Sukdz8408-14-15 06:52:00* Test Item Value Reference Range Interpretation Comments BUN/Creatinine Ratio (test code = 3097-3) 18 6-25 [facility]anoEstimat Glomerular Filtration Rate 2018-07-21 06:52:00* Test Item Value Reference Range Interpretation Comments Estimat Glomerular Filtration Rate (test code = 406260233) > 60 >60 Ranges were taken from the National Kidney Disease Education Program and the Bia replaced by [facility] Foundation literature.Reference ranges:60 or greater: Asosjf17-81 ( for 3 consecutive months): Chronic kidney disease 15 or less: Kidney failureTexas Health Presbyterian Hospital PlanoGlucose Zracv1157-05-43 06:52:00* Test Item Value Reference Range Interpretation Comments Glucose Level (test code = DYL4956) 104 74-118 [facility]anoCalcium Qtqzw5904-02-68 06:52:00* Test Item Value Reference Range Interpretation Comments Calcium Level (test code = 14666-0) 9.3 8.4-10.2 [facility]anoWhite Blood Gqttg1090-52-75 06:27:00* Test Item Value Reference Range Interpretation Comments White Blood Count (test code = 6690-2) 7.61 4.8-10.8 [facility] PlanoRed Blood Ligow6681-85-39 06:27:00* Test Item Value Reference Range Interpretation Comments Red Blood Count (test code = 789-8) 3.88 3.6-5.1 [facility]anoHemoglobin2019-01-13 06:27:00* Test Item Value Reference Range Interpretation Comments Hemoglobin (test code = 80313-3) 12.6 12.0-16.0 [facility]anoHematocrit2019-01-13 06:27:00* Test Item Value Reference Range Interpretation Comments Hematocrit (test code = 4544-3) 37.6 34.2-44.1 [facility]anoMean Corpuscular Iqihyh4952-80-26 06:27:00* Test Item Value Reference Range Interpretation Comments Mean Corpuscular Volume (test code = 787-2) 96.9 81-99 [facility]anoMean Corpuscular Pdmlpwuuzw5941-40-40 06:27:00* Test Item Value Reference Range Interpretation Comments Mean Corpuscular Hemoglobin (test code = 785-6) 32.5 28-32 H [facility] PlanoMean Corpuscular Hemoglobin Concent 2018-07-21 06:27:00* Test Item Value Reference Range Interpretation Comments Mean Corpuscular Hemoglobin Concent (test code = 786-4) 33.5 31-35 [facility] PlanoRed Cell Distribution Ejjxt3424-01-30 06:27:00* Test Item Value Reference Range Interpretation Comments Red Cell Distribution Width (test code = 96022-7) 12.3 11.7 -14.4 [facility] PlanoPlatelet Zndjg4010-39-12 06:27:00* Test Item Value Reference Range Interpretation Comments Platelet Count (test code = 777-3) 265 140-360 [facility]anoNeutrophils (%) (Auto)2018-07-21 06:27:00 * Test Item Value Reference Range Interpretation Comments Neutrophils (%) (Auto) (test code = 48900-1) 67.6 38.7-80.0 [facility] PlanoLymphocytes (%) (Auto)2018-07-21 06:27:00 * Test Item Value Reference Range Interpretation Comments Lymphocytes (%) (Auto) (test code = 736-9) 17.6 18.0-39.1 L [facility]anoMonocytes (%) (Auto)2018-07-21 06:27:00* Test Item Value Reference Range Interpretation Comments Monocytes (%) (Auto) (test code = 5905-5) 11.7 4.4-11.3 H [facility]anoEosinophils (%) (Auto)2018-07-21 06:27:00 * Test Item Value Reference Range Interpretation Comments Eosinophils (%) (Auto) (test code = 713-8) 2.0 0.0-6.0 [facility]anoBasophils (%) (Auto)2018-07-21 06:27:00* Test Item Value Reference Range Interpretation Comments Basophils (%) (Auto) (test code = 706-2) 0.8 0.0-1.0 [facility]anoIM GRANULOCYTES %2018-07-21 06:27:00* Test Item Value Reference Range Interpretation Comments IM GRANULOCYTES % (test code = IM GRANULOCYTES %) 0.3 0.0- 1.0 [facility]anoNeutrophils # (Auto)2018-07-21 06:27:00* Test Item Value Reference Range Interpretation Comments Neutrophils # (Auto) (test code = 751-8) 5.2 2.1-6.9 [facility]anoLymphocytes # (Auto)2018-07-21 06:27:00* Test Item Value Reference Range Interpretation Comments Lymphocytes # (Auto) (test code = 80099-6) 1.3 1.0-3.2 [facility]anoMonocytes # (Auto)2018-07-21 06:27:00* Test Item Value Reference Range Interpretation Comments Monocytes # (Auto) (test code = 742-7) 0.9 0.2-0.8 H [facility]anoEosinophils # (Auto)2018-07-21 06:27:00* Test Item Value Reference Range Interpretation Comments Eosinophils # (Auto) (test code = 711-2) 0.2 0.0-0.4 [facility]anoBasophils # (Auto)2018-07-21 06:27:00* Test Item Value Reference Range Interpretation Comments Basophils # (Auto) (test code = 704-7) 0.1 0.0-0.1 [facility]anoAbsolute Immature Granulocyte (auto 2018-07-21 06:27:00* Test Item Value Reference Range Interpretation Comments Absolute Immature Granulocyte (auto (lionel t code = Absolute Immature Granulocyte (auto) 0.02 0-0.1 [facility] PlanoUrine Random Ivuryc9211-31-96 07:45:00* Test Item Value Reference Range Interpretation Comments Urine Random Sodium (test code = 2955-3) 38 [facility] PlanoUrine Random Rltbkw2911-45-36 07:45:00* Test Item Value Reference Range Interpretation Comments Urine Random Sodium (test code = 2955-3) 38 [facility] PlanoUrine Random Ldoigf0454-15-76 07:45:00* Test Item Value Reference Range Interpretation Comments Urine Random Sodium (test code = 2955-3) 38 [facility] PlanoUrine Random Trcaxf8268-75-86 07:45:00* Test Item Value Reference Range Interpretation Comments Urine Random Sodium (test code = 2955-3) 38 [facility] PlanoTotal Ikvvijeah5182-72-25 06:14:00* Test Item Value Reference Range Interpretation Comments Total Bilirubin (test code = 1975-2) 0.5 0.2-1.2 [facility] PlanoAspartate Amino Transf (AST/SGOT) 2018-07-20 06:14:00* Test Item Value Reference Range Interpretation Comments Aspartate Amino Transf (AST/SGOT) (test code = Aspartate Amino Transf (AST/SGOT)) 15 5-34 [facility] PlanoAlanine Aminotransferase (ALT/SGPT) 2018-07-20 06:14:00* Test Item Value Reference Range Interpretation Comments Alanine Aminotransferase (ALT/SGPT) (test code = 1742-6) 11 0-55 [facility] PlanoTotal Uvgqyek7634-94-53 06:14:00* Test Item Value Reference Range Interpretation Comments Total Protein (test code = 2885-2) 5.7 6.5-8.1 L [facility] PlanoAlbumin2019-01-12 06:14:00* Test Item Value Reference Range Interpretation Comments Albumin (test code = 1751-7) 3.2 3.5-5.0 L [facility]anoGlobulin2019-01-12 06:14:00* Test Item Value Reference Range Interpretation Comments Globulin (test code = 30037-9) 2.5 2.3-3.5 [facility]anoAlbumin/Globulin Tkazg5415-15-97 06:14:00 * Test Item Value Reference Range Interpretation Comments Albumin/Globulin Ratio (test code = 1759-0) 1.3 0.8-2.0 [facility]anoAlkaline Catrywnfrod2402-60-46 06:14:00* Test Item Value Reference Range Interpretation Comments Alkaline Phosphatase (test code = 6768-6) 65 40-150 [facility] PlanoUrine Qembz4019-61-24 21:56:00* Test Item Value Reference Range Interpretation Comments Urine Color (test code = 5778-6) YELLOW YELLOW [facility]anoUrine Cdflwuj9654-00-67 21:56:00* Test Item Value Reference Range Interpretation Comments Urine Clarity (test code = 46511-1) HAZY CLEAR [facility] PlanoUrine Specific Ilagtvy3567-46-29 21:56:00 * Test Item Value Reference Range Interpretation Comments Urine Specific [place] (test code = 5811-5) 1.005 1.010-1.02 5 L [facility]anoUrine cE0706-31-27 21:56:00* Test Item Value Reference Range Interpretation Comments Urine pH (test code = 90119-5) 6.5 5-7 [facility]anoUrine Leukocyte Jacndpfw2507-06-60 21:56:00* Test Item Value Reference Range Interpretation Comments Urine Leukocyte Esterase (test code = 5799-2) 1+ NEGATIVE H [facility]anoUrine Xujxyyb0496-66-54 21:56:00* Test Item Value Reference Range Interpretation Comments Urine Nitrite (test code = 23388-4) NEGATIVE NEGATIVE [facility]anoUrine Jiwfcea4065-90-10 21:56:00* Test Item Value Reference Range Interpretation Comments Urine Protein (test code = 5804-0) NEGATIVE NEGATIVE [facility]anoUrine Glucose (UA)2018-07-19 21:56:00* Test Item Value Reference Range Interpretation Comments Urine Glucose (UA) (test code = 2349-9) 1+ NEGATIVE H [facility]anoUrine Rrpxpxe5764-82-68 21:56:00* Test Item Value Reference Range Interpretation Comments Urine Ketones (test code = 23494-4) NEGATIVE NEGATIVE [facility]anoUrine Fqjxobbdooth6537-60-90 21:56:00* Test Item Value Reference Range Interpretation Comments Urine Urobilinogen (test code = 40615-5) 0.2 0.2-1 [facility]anoUrine Xvrzottfg6025-20-17 21:56:00* Test Item Value Reference Range Interpretation Comments Urine Bilirubin (test code = 1978-6) NEGATIVE NEGATIVE [facility]anoUrine Majab9753-80-13 21:56:00* Test Item Value Reference Range Interpretation Comments Urine Blood (test code = 99703-0) TRACE NEGATIVE H [facility]anoUrine VDT0037-57-54 21:56:00* Test Item Value Reference Range Interpretation Comments Urine WBC (test code = 5821-4) 11-20 0-5 H [facility]anoUrine AKN3707-53-77 21:56:00* Test Item Value Reference Range Interpretation Comments Urine RBC (test code = 77498-3) 6-10 0-5 H [facility]anoUrine Alxqgyqd9122-25-72 21:56:00* Test Item Value Reference Range Interpretation Comments Urine Bacteria (test code = 81252-5) MODERATE NONE H [facility]anoUrine Epithelial Blwxh4073-19-56 21:56:00 * Test Item Value Reference Range Interpretation Comments Urine Epithelial Cells (test code = 42282-8) FEW NONE [facility] PlanoCreatine Kinase QZ9224-03-67 19:37:00* Test Item Value Reference Range Interpretation Comments Creatine Kinase MB (test code = 44286-0) 1.40 0-5.0 [facility]anooponin J9620-42-70 19:37:00* Test Item Value Reference Range Interpretation Comments Troponin I (test code = IXM5377) < 0.001 0-0.300 [facility]anoCreatine Kinase EV6893-87-46 19:37:00* Test Item Value Reference Range Interpretation Comments Creatine Kinase MB (test code = 05165-7) 1.40 0-5.0 [place] [address]4876019-01-11 19:37:00* Test Item Value Reference Range Interpretation Comments Troponin I (test code = OEO9983) < 0.001 0-0.300 [facility] PlanoB-Type Natriuretic Kybyemm4479-40-42 19:33:00* Test Item Value Reference Range Interpretation Comments B-Type Natriuretic Peptide (test code = 64336-0) 29.9 0-100 [facility]anoB-Type Natriuretic Brmyjro5796-27-61 19:33:00* Test Item Value Reference Range Interpretation Comments B-Type Natriuretic Peptide (test code = 49486-6) 29.9 0-100 [facility] PlanoB-Type Natriuretic Lqcsbgg0865-33-54 19:33:00* Test Item Value Reference Range Interpretation Comments B-Type Natriuretic Peptide (test code = 97354-4) 29.9 0-100 [facility]anoB-Type Natriuretic Oqgxjeo1991-46-72 19:33:00* Test Item Value Reference Range Interpretation Comments B-Type Natriuretic Peptide (test code = 95498-1) 29.9 0-100 [facility] PlanoActivated Partial Thromboplast Time 2018-07-19 19:30:00* Test Item Value Reference Range Interpretation Comments Activated Partial Thromboplast Time (test code = 85874-1) 29.9 23.8-35.5 [facility]anoActivated Partial Thromboplast Time 2018-07-19 19:30:00* Test Item Value Reference Range Interpretation Comments Activated Partial Thromboplast Time (test code = 52208-4) 29.9 23.8-35.5 [facility]anoCreatine Bqrdug7466-20-97 19:29:00* Test Item Value Reference Range Interpretation Comments Creatine Kinase (test code = 2157-6) 123 29-168 [facility]anoCrepho[facility] Kvwynu4989-98-20 19:29:00* Test Item Value Reference Range Interpretation Comments Creatine Kinase (test code = 2157-6) 123 29-168 [facility] PlanoProthrombin Rsqu3764-96-06 19:28:00* Test Item Value Reference Range Interpretation Comments Prothrombin Time (test code = 5902-2) 12.3 11.9-14.5 [facility] PlanoProthromb Time International Ratio 2018-07-19 19:28:00* Test Item Value Reference Range Interpretation Comments Prothromb Time International Ratio (test code = 6301-6) 0.84 Oral Anticoagulant Therapy INR Values:1. Low Intensity Therapy 1.5 - 2.02 . Moderate Intensity Therapy 2.0 - 3.03. High Intensity Therapy(1) 2.5 - 3. 54. High Intensity Therapy(2) 3.0 - 4.05. Panic Value INR > 5.0 [facility] PlanoProthrombin Wliw2270-80-67 19:28:00* Test Item Value Reference Range Interpretation Comments Prothrombin Time (test code = 5902-2) 12.3 11.9-14.5 [facility]anoProthromb Time International Ratio 2018-07-19 19:28:00* Test Item Value Reference Range Interpretation Comments Prothromb Time International Ratio (test code = 6301-6) 0.84 Oral Anticoagulant Therapy INR Values:1. Low Intensity Therapy 1.5 - 2.02 . Moderate Intensity Therapy 2.0 - 3.03. High Intensity Therapy(1) 2.5 - 3. 54. High Intensity Therapy(2) 3.0 - 4.05. Panic Value INR > 5.0 [facility]2018-07-19 18:37:00 [address] [address] Patient Name: SHARLENE MOORE MR #: [id number] : 1935 Age/Sex: 83/F Req #: [id number] Adm Physician: Ordered by: STELLA FUNES MD Report #: [id number] Location: ER Room/Bed: Procedure: [id number] DX /CHEST SINGLE (PORTABLE) Exam Date: 07/19/18 [...] COPY TO: STELLA FUNES MD CT ABDOMEN/PELVIS B9552-41-08 14:47:00 [address] [address] Patient Name: SHARLENE MOORE MR #: [id number] : 1935 Age/Sex: 83/F Req #: [id number] [facility] Physician: Ordered by: LIGIA WEST DO Report #: [id number] Location: CT Room/Bed: Procedure: [id number] CT/C T ABDOMEN/PELVIS W Exam Date: 07/16/18 Exam Time: 14 30 REPORT STATUS: Signed EXAM: C T Abdomen and Pelvis WITH contrast INDICATION: [id number] LOWER ABD PAIN/DIVERTICULOSIS COMPARISON: None. TECHNIQUE: Abdomen [...] for further evaluation. Signed by: Dr. Mitul alarcon MD on 07/16/2018 3:05 PM Dictated By: MITUL WITT MD Electronicall y Signed By: MITUL WITT MD on 07/16/18 1505 Transcribed By: JOHN on 07/16 1505 COPY TO: LIGIA WEST DO Blood Urea Anaeuclj4326-74-49 14:19:00* Test Item Value Reference Range Interpretation Comments Blood Urea Nitrogen (test code = 3094-0) 8 7-26 [facility]anoCreatinine2019-01-08 14:19:00* Test Item Value Reference Range Interpretation Comments Creatinine (test code = 2160-0) 0.80 0.57-1.11 [facility] PlanoBUN/Creatinine Igkil4855-09-27 14:19:00* Test Item Value Reference Range Interpretation Comments BUN/Creatinine Ratio (test code = 3097-3) 10 6-25 [facility] PlanoEstimat Glomerular Filtration Rate 2018-07-16 14:19:00* Test Item Value Reference Range Interpretation Comments Estimat Glomerular Filtration Rate (test code = 538200044) > 60 >60 Ranges were taken from the National Kidney Disease Education Program and the Bia replaced by [facility]ney Foundation literature.Reference ranges:60 or greater: Vnipdt65-94 ( for 3 consecutive months): Chronic kidney disease 15 or less: Kidney failureTexas Health Presbyterian Hospital PlanoBEDSIDE GLUCOSE JOPQRUB1961-51-56 16:41:64720 [facility] GLUCOSE YLRRGVZ4363-91-76 13:05:18348Ljinreyd Mccarr BEDSIDE GLUCOSE XEIWTBH6979-83-83 21:21:[address] RmygkkkXFFAPOAAH7187-46-42 10:07:0012.3[facility] WatbsgzNPKDXSUFV0896-07-91 10:07:000.6[facility] RFUXMJAAJ9771-13-53 10:07:97904Ehddjafv BsmkiohHJFYDLEMP4212-99-65 10:07:004.3 [facility] GrjipwoXQJWJUFRN6780-99-40 10:07:007.6[facility] HermannCHEMISTRY 2011-08-25 10:07:0028[facility] IutjrxsBMGUPADYO5985-77-27 10:07:47379Kojtpitl XijfmcvDDJYTCSCB2596-59-88 10:07:005[facility] EgjookqJGZMFHNMT2240-83-65 10:07:00 131[facility] MhuoitdMDGJMPTQHF3332-98-65 10:07:0010.9[facility] HermannHEMATOLOGY 2011-08-25 10:07:003.48[facility] SagwxnqQMTSKWWCJZ5283-24-14 10:07:007.1[facility] AbnbgdwUJIOGVZDPP0959-18-72 10:07:0013.9[facility] SxowvffZUKWWZXYPR8917-94-29 10:07:0033.5[facility] ZohuoblHZHSWTCMTH9153-27-77 10:07:00* Test Item Value Reference Range Interpretation Comments MCH (test code = MCH) 31.5 pg 27.0-31.0 H [facility] PpgnlqoNXEEEYQTRI8870-70-11 10:07:0094.0[facility] HermannHEMATOLOGY 2011-08-25 10:07:0032.7[facility] VhaezefFDUCQUADYT4877-01-05 10:07:009.3[facility] KcjdhdgSBRYFSWYBQ3262-78-91 10:07:14803Gyzbmmtn SxgoagdQFBAALYRCI2869-12-76 10:07:000.0[facility] MyqacqtZMDBWCQUXT1615-73-74 10:07:00Normal (08/25/2011 04:07:00) [facility] FqjnkizMJPBQRBEWU1738-62-39 10:07:00Normal (08/25/2011 04:07:00) [facility] NehtwmxTVZIMKWDXF2429-09-11 10:07:00* Test Item Value Reference Range Interpretation Comments Tot Cell Ct (test code = Tot Cell Ct) 100 1 [facility] FpebqmgUTMDUYUVKZ5054-02-69 10:07:005.0[facility] HermannHEMATOLOGY 2011-08-25 10:07:000.0[facility] PrenefmNQOHYWXNGG4236-68-50 10:07:000.0[facility] ZgocsypGWZXPRJAKS0832-31-03 10:07:0026.0[facility] AaqvfdvXMLUGTKXZH6509-50-92 10:07:004.9[facility] LvvrrhvVWCDVXTVMH9955-64-74 10:07:000.4[facility] M[facility] ZOFFDQEOMX8884-67-43 10:07:000.0[facility] UxtzmwuTDAZPLPTYG9138-56-90 10:07:001.8 [facility] NcdwplsQKQLQDSATE3534-46-53 10:07:0069.0[facility] HermannCHEMISTRY 2011-08-24 10:20:0013.3[facility] QqvzdwhBVREROCAC6830-08-47 10:20:95106Rlgyqoer QmsrwdxVZHRNTGFF4215-12-10 10:20:0026[facility] LptzgqlMMORMUFDB1134-62-04 10:20:007.8[facility] YijfrzbSFCTRZLPR8975-95-18 10:20:004.3[facility] UUWSGHGCS4801-24-30 10:20:87122Gliwgdtd HhwzewwRJDZZQPUA3471-82-75 10:20:008 [facility] AqnnzhlBUQNVXEJL5614-89-11 10:20:68055Uglaxvsi HermannCHEMISTRY 2011-08-24 10:20:000.7[facility] LfzwunzUVXSMHKYRI4233-20-83 10:20:007.4[facility] FfbjpkrREEYAYREIY3668-65-40 10:20:000.7[facility] UexvaswHWSCEHPOGB2464-41-27 10:20:000.7[facility] EemvketBOFJBNBZUB1075-17-83 10:20:000.0[facility] Mccarr QFMLBPUNQD3432-17-76 10:20:000.0[facility] JmsrissKQRGLNLIWK9340-93-38 10:20:000.0 [facility] SqdqjqhLNKNOKVTQI2256-21-05 10:20:0084.5[facility]annHEMATOLOGY 2011-08-24 10:20:007.8[facility] NazculfFTBSMDLUWZ4753-42-98 10:20:000.0[facility] TqepekuSFHBASZNVJ4701-50-92 10:20:007.7[facility] BhjexpkVFVINKJRZV8944-82-39 10:20:0034.5[facility] PvlrsisWXYQKBCEYQ6487-73-51 10:20:0013.2[facility] UKDFHSZTKK3554-67-97 10:20:008.7[facility] PphnjlkWKVXVKAEOA7176-85-48 10:20:00 93.3[facility] SgdgsdcTDNTLCWNAY6264-48-18 10:20:00* Test Item Value Reference Range Interpretation Comments MCH (test code = MCH) 32.2 pg 27.0-31.0 H [facility] AuwyjogWYGDLDNNOE8362-41-94 10:20:0033.1[facility]annHEMATOLOGY 2011-08-24 10:20:003.55[facility] MpcofdvLCOXSPHZJY1474-23-15 10:20:0011.4[facility] MzylhqwHGNJETNAEV2113-96-99 10:20:39500Ilvzwyct BqjcbbpICWFFUSYTU6620-24-03 10:20:009.2[facility] XjbemfcOMPCIRWJL9091-47-29 17:20:0024[facility] QWUKUMTAO5940-78-33 17:20:007.5[facility] BwdztacCMTUHRCJP9409-35-27 17:20:003.8 [facility] LarxiggQDQWSZQDE6136-64-19 17:20:0095[facility]annCHEMISTRY 2011-08-21 17:20:000.3[facility] ZoyigciELMKMCGTR6186-19-15 17:20:0016[facility] IubbzazSDKOVQMMN9485-54-30 17:20:008.4[facility] TsvtywvOEWWVHWIJ5900-09-24 17:20:0027[facility] TqmqqjoMQDHGPBXN3549-50-23 17:20:003.8[facility] GEPSYXNDJ7246-30-44 17:20:56240Sbpouqze GqwjfymHYRUJFFYB7302-67-80 17:20:0013 [facility] WbzjtpyTAVVMGEKS0771-00-59 17:20:17781Onqclmbl HermannCHEMISTRY 2011-08-21 17:20:000.6[facility] EmufhxjNHNJHYCRN0374-03-80 17:20:46499Kkzntzbk HyrekktQDILJMSLO9133-44-77 17:20:003.7[facility] GpuaddvLRZCSFVRO4784-80-54 17:20:001.0[facility] KcuamqeGEAODTGEH8495-67-08 17:20:0022[facility] TBLNWCUZA0589-32-83 17:20:0013.8[facility] BdltpnoETLRIYXLDH2281-47-92 17:20:00* Test Item Value Reference Range Interpretation Comments PTT (test code = PTT) 30.3 s 22.9-35.8 N [facility] MeajhvvEFUPUMWXHA9393-38-57 17:20:00* Test Item Value Reference Range Interpretation Comments PT (test code = PT) 11.8 s 12.0-14.7 L [facility] BwacfqiDYLIABIHTT7018-80-04 17:20:000.86[facility]annHEMATOLOGY 2011-08-21 17:20:009.3[facility] FfrflkuAQADTIMHFI8438-82-43 17:20:0013.0[facility] SfifzqpLSAKTHOIXF2988-14-37 17:20:74374Bungfyrv EetiwnpGSWRQZGOYZ3826-33-54 17:20:0036.6[facility] AsypnhkUSOIJCJWLH7777-22-72 17:20:0034.6[facility] OQTJICUSZD0881-17-63 17:20:0092.3[facility] SyqwgkkTYBSZRBWCS4684-52-72 17:20:00 12.6[facility] CprmtghOQFJKPITWF1288-17-47 17:20:00* Test Item Value Reference Range Interpretation Comments MCH (test code = MCH) 31.9 pg 27.0-31.0 H [facility] TbamwenNKMMWYWMBQ6305-86-88 17:20:003.96[facility]annHEMATOLOGY 2011-08-21 17:20:005.5[facility] YwhupcfSGTOSHQSHH6092-95-51 17:20:000.0[facility] SjzpcmfEOYMKNQPMC0799-04-32 17:20:001.0[facility] PizocfiEMHUZMVFFW4143-18-83 17:20:000.3[facility] YwavnzwGVAFJNRFXV5198-98-50 17:20:005.3[facility] VRPEMPDPPN2677-73-27 17:20:003.7[facility] YpuyqzgKGCEWKAQCA0644-99-66 17:20:000.4 [facility] VaylitiYVCJVZOXXS1781-98-27 17:20:000.9[facility]annHEMATOLOGY 2011-08-21 17:20:007.6[facility] YmpgvmlYUQHPTLUUB7528-26-33 17:20:0018.7[facility] JpsmppqNTIIMUVRQW6589-25-24 17:20:0067.5[facility] PechddiNOVYIVIDB8975-67-98 02:55:00* Test Item Value Reference Range Interpretation Comments CK MB Index (test code = CK MB Index) 0.7 1 <=2.5 N [facility] UcwfitnYLBPVYWNI1718-53-38 02:55:000.6[facility] HermannCHEMISTRY 2011-05-23 02:55:0090.0[facility] CzeuozvYRKFKXAYW8212-53-00 02:55:00<0.02[facility] RasyrpnSPIVKUZIF3778-66-11 02:55:0088.0[facility] RxymtcgWZPFEYFRN7186-40-51 02:55:00* Test Item Value Reference Range Interpretation Comments A/G Ratio (test code = A/G Ratio) 1.0 1 0.7-1.6 N [facility] DcbxetvXPNMCHLAP0854-52-53 02:55:0025.0[facility] HermannCHEMISTRY 2011-05-23 02:55:000.4[facility] RnypxaaIQMKDOXPE1408-79-63 02:55:008.9[facility] HzxydamKTRERNCYK7528-42-28 02:55:00* Test Item Value Reference Range Interpretation Comments B/C Ratio (test code = B/C Ratio) 18.0 1 6-25 N [facility] UeozcfgOVOEISFLV8843-52-25 02:55:004.2[facility] HermannCHEMISTRY 2011-05-23 02:55:70380.0[facility] XbqlgfiMSYQDYXNL3818-50-13 02:55:0011.0[facility] FkrhdaoJWSVWISPZ8693-96-86 02:55:000.6[facility] DoaeukvAVOCQQHFO7762-49-86 02:55:19240.0[facility] RgzoazdVXGIVDVFB6652-11-54 02:55:0032.0[facility] YJEUOSLYR4108-45-03 02:55:18690.0[facility] TsmnadwEXJDJPVYK7280-30-01 02:55:003.9 [facility] WcaydutEWXNPRYNA0676-95-69 02:55:009.3[facility] HermannCHEMISTRY 2011-05-23 02:55:008.5[facility] UpkjgrsCHVJKLLNA1563-11-61 02:55:0075.0[facility] IsqzeeaRNSKZKEZV9970-73-09 02:55:004.3[facility] GkmyplaMRKGQKDNA4789-98-92 02:55:0031.0[facility] CswmatrKMSTJMDAGH3754-32-48 02:55:000.5[facility] TLSAHSKIHH2007-46-63 02:55:000.3[facility] UhzdgljWZPHFRFUQO4000-75-70 02:55:001.7 [facility] XtfsauoKWHHYFMERP5886-16-38 02:55:004.3[facility]annHEMATOLOGY 2011-05-23 02:55:004.4[facility] ZjfaqmlRWJHRIZMAB3598-69-17 02:55:000.9[facility] NeimbqcVTCMKWSKFZ4682-50-11 02:55:006.8[facility] PrbsyngYIEQFOBTOW8816-43-67 02:55:0024.8[facility] DjcwbxjWQEBAGYSUL4888-47-25 02:55:0063.2[facility] IWUMBTQNNQ3629-52-11 02:55:000.1[facility] YclrxnxCJYLBOIBWC3386-96-23 02:55:009.4 [facility] TwjrdoeURWHLKSOAI6752-88-28 02:55:11717.0[facility] HermannHEMATOLOGY 2011-05-23 02:55:0013.2[facility] BnppdqaBEBTTCCFWN0453-29-99 02:55:00* Test Item Value Reference Range Interpretation Comments MCH (test code = MCH) 32.1 pg 27.0-31.0 H [facility] KyynrtdCQPHUHLOJF0678-47-27 02:55:0034.5[facility] HermannHEMATOLOGY 2011-05-23 02:55:0092.9[facility] TgutvogLEACSHZNTF7041-02-91 02:55:0013.3[facility] YnfymddZFIYNBRPHW5413-98-78 02:55:0038.4[facility] ZuuzdgjJNHULJFZTY2307-30-70 02:55:004.14[facility] VvvkbmtANYVTSZEAL4636-85-97 02:55:006.9[facility] VCTFQQYVRX6439-07-05 01:40:00Negative (05/22/2011 19:40:00) ??[facility] LOVEDCWURR5082-34-44 01:40:00None Seen (05/22/2011 19:40:00) ??[facility] KURABPIJMK2188-27-70 01:40:00Trace *ABN*(05/22/2011 19:40:00) ??[facility] MUCKNTDWNG2347-58-66 01:40:00None Seen (05/22/2011 19:40:00) ??[facility] NRBDVLVHHM6551-83-09 01:40:003-5 /HPF (05/22/2011 19:40:00) ??[facility] ZILNLZOBME7019-98-27 01:40:00Negative *NA*(05/22/2011 19:40:00) ??[facility] YehiecmQGWAVXHRVK8735-35-32 01:40:00Negative *NA*(05/22/2011 19:40:00) ?? [facility] KslivttUGSVTTPYMJ4655-07-22 01:40:00Negative (05/22/2011 19:40:00) ?? [facility] DtljrzoPWEHCAHPOX6257-60-99 01:40:000.2[facility] 2011-05-23 01:40:00None Seen (05/22/2011 19:40:00) ??[facility]annURINALYSIS 2011-05-23 01:40:00Negative (05/22/2011 19:40:00) ??[facility]annURINALYSIS 2011-05-23 01:40:00* Test Item Value Reference Range Interpretation Comments UA pH (test code = UA pH) 6.0 1 5.0-8.0 N [facility] GgndeedWZEZBDNDJA1871-22-11 01:40:00Negative (05/22/2011 19:40:00) ?? [facility] AdxlsbkAXJGUFSEMF2307-53-27 01:40:00Clear (05/22/2011 19:40:00) ?? [facility] ZbcfharVWKZKEJXOX9739-84-40 01:40:00* Test Item Value Reference Range Interpretation Comments UA Spec Grav (test code = UA Spec Grav) 1.01 1 N [facility] PxinwigCUEAVNHUXV1300-13-49 01:40:00Yellow *NA*(05/22/2011 19:40:00) ?? [facility] [place] [address] Patient Name: SHARLENE MOORE MR #: [id number] : 1935 Age/Sex: 82/F Req #: [id number] Adm Physician: Ordered by: JILLIAN RINCON MD Report #: [id number] Location: Room/Bed: Procedure: [id number] US/US RENAL RETROPERITONEAL COMP Exam Date: Exam [...] ON 11/28/2017 AT 13:20 Dictated By: YAMIL DAAM MD, MD 1320 Transcribed By: ALIN on 11/28/17 1320 COPY TO: JILLIAN RINCON MD
[2019-12-15] MEDS ORDERED: ASPIRIN 81 MG CHEW TAB PO ONE (07:30)
--- NOTE | 2019-12-15 07:33 | Emergency Department Note ---
History of Present Illnes History of Present Illness Chief Complaint: Hypertension History of Present Illness This is a 84 year old female . c/o elevated bp dizzinss generalized weakness on set last night Chief Complaint Comment 84 Y/O FEMALE PT A&OX3 PRESENTS TO THE ER C/O DIZZINESS AND WEAKNESS ONSET LAST NIGHT AROUND 2230; PT STATES SHE TOOK HER BP WITH SBP READING 192 AND TOOK X1 CLONIDINE; PT REPORTS BP WAS STILL ELEVATED AND TOOK ANOTHER CLONIDINE; PT REPORTS TAKING AM LISINOPRIL THIS AM AT 0600; CURRENT BP IN TRIAGE 153/66, HR 72; PT DENIES CP OR SOB; DENIES TINNITUS, BLURRED VISION, N/V, OR DOWNS; NO NEURO DEFICITS NOTED; PT HAS UPRIGHT AND STEADY GAIT; PERRLA NOTED; 20G IV CATH PLACED IN LT AC; BLOOD OBTAINED FOR ANALYSIS; PT GIVEN SPECIMEN CUP FOR ANALYSIS; EKG PERFORMED AND GIVEN TO ER MD FOR REVIEW; Joyce PATTERSON ENP IN TRIAGE FOR INITIAL EVAL. Historian: Patient Arrival Mode: Car Onset (how long ago): day(s) (last night) Radiation: non-radiation, back, neck, extremity, abdomen, periumbilical, flank, proximal, distal, other Severity: mild Onset quality: sudden Duration (how long): day(s) (on set last night ) Timing of current episode: constant Progression: unchanged Context: recent illness, recent surgery, recent immobilization, recent travel, trauma/injury, new medications, hx of DVT/PE, non-compliance w/ medications, other Relieving factors: none Exacerbating factors: none Treatments prior to arrival: none Past Medical/Family History Physician Review I have reviewed the patient's past medical and family history. Any updates have been documented here. Past Medical History Recent Fever: No Clinical Suspicion of Infectio: No New/Unexplained Change in Ment: No Past Medical History: Hypertension, Diabetes, UTI's, Anxiety, Depression, GERD, Hyperlipedemia, Osteoarthritis Other Medical History: ARTHRITIS CHRONIC PAIN OSTEOPOROSIS Past Surgical History: Cholecysctectomy, Appendectomy, Hysterectomy, Hernia Repair Other Surgery: HYST GB APPY HERNIA X3 LT EAR Social History Smoking Cessation: Never Smoker Alcohol Use: None Any Illegal Drug Use: No TB Exposure/Symptoms: No Physically hurt or threatened: No Family History Family history of heart diseas: No Other Last Tetanus: UNKNOWN Any Pre-Existing Lines (PICC,: No Review of Systems Review of Systems Constitutional: weakness, other (fatigue) EENTM: no symptoms Cardiovascular: chest pain Respiratory: no symptoms Gastrointestinal: no symptoms Genitourinary: no symptoms Musculoskeletal: no symptoms Neurological: weakness; headache, numbness, paresthesia, pre-existing deficit, tingling Psychological: no symptoms Endocrine: no symptoms Hematological/Lymphatic: no symptoms Review of other systems All other systems reviewed and negative. Physical Exam Related Data Allergies: Coded Allergies: codeine (Verified Allergy, Intermediate, STOMACH PAIN, 10/31/19) lorazepam (Verified Allergy, Intermediate, 10/31/19) Triage Vital Signs Date Time Temp Pulse Resp B/P (MAP) Pulse Ox O2 Delivery O2 Flow Rate FiO2 12/15/19 07:13 97.4 74 18 153/66 99 Vital signs reviewed: Yes Physical Exam CONSTITUTIONAL Constitutional: well-developed, well-nourished HENT HENT: normocephalic, atraumatic, oropharynx clear/moist, nose normal HENT L/R: left ext ear normal, right ext ear normal EYES Eyes: PERRL, conjunctivae normal NECK Neck: ROM normal PULMONARY Pulmonary: effort normal, breath sounds normal CARDIOVASCULAR Cardiovascular: regular rhythm, heart sounds normal, capillary refill normal, normal rate GASTROINTESTINAL Abdominal: soft, nontender, bowel sounds normal GENITOURINARY Genitourinary: exam deferred SKIN Skin: warm, dry MUSCULOSKELETAL Musculoskeletal: ROM normal NEUROLOGICAL Neurological: alert, oriented x 3, no gross motor or sensory deficits PSYCHOLOGICAL Psychological: mood/affect normal, judgement normal Exam - additional comments c/o elevated bp dizzinss generalized weakness on set last night Results Laboratory Laboratory Laboratory Tests Test 12/15/19 07:32 White Blood Count 5.87 x10e3/uL (4.8-10.8) Red Blood Count 3.79 x10e6/uL (3.6-5.1) Hemoglobin 11.5 g/dL (12.0-16.0) Hematocrit 35.4 % (34.2-44.1) Mean Corpuscular Volume 93.4 fL (81-99) Mean Corpuscular Hemoglobin 30.3 pg (28-32) Mean Corpuscular Hemoglobin Concent 32.5 g/dL (31-35) Red Cell Distribution Width 13.5 % (11.7-14.4) Platelet Count 245 x10e3/uL (140-360) Neutrophils (%) (Auto) 72.2 % (38.7-80.0) Lymphocytes (%) (Auto) 15.7 % (18.0-39.1) Monocytes (%) (Auto) 9.4 % (4.4-11.3) Eosinophils (%) (Auto) 1.5 % (0.0-6.0) Basophils (%) (Auto) 0.9 % (0.0-1.0) Neutrophils # (Auto) 4.2 (2.1-6.9) Lymphocytes # (Auto) 0.9 (1.0-3.2) Monocytes # (Auto) 0.6 (0.2-0.8) Eosinophils # (Auto) 0.1 (0.0-0.4) Basophils # (Auto) 0.1 (0.0-0.1) Absolute Immature Granulocyte (auto 0.02 x10e3/uL (0-0.1) Prothrombin Time 11.8 seconds (11.9-14.5) Prothromb Time International Ratio 0.82 Activated Partial Thromboplast Time 29.5 seconds (23.8-35.5) Urine Color Yellow (YELLOW) Urine Clarity Sl cloudy (CLEAR) Urine pH 6.5 (5 - 7) Urine Specific [place] 1.025 (1.010-1.025) Urine Protein Negative (NEGATIVE) Urine Glucose (UA) Negative (NEGATIVE) Urine Ketones Negative (NEGATIVE) Urine Blood Trace (NEGATIVE) Urine Nitrite Negative (NEGATIVE) Urine Bilirubin Negative (NEGATIVE) Urine Urobilinogen 0.2 mg/dL (0.2 - 1) Urine Leukocyte Esterase Moderate (NEGATIVE) Urine RBC 0-5 /HPF (0-5) Urine WBC 21-50 /HPF (0-5) Urine Epithelial Cells Few /LPF (NONE) Urine Transitional Epithelial Cells Few (NONE) Urine Bacteria Moderate /HPF (NONE) Sodium Level 129 mmol/L (136-145) Potassium Level 3.8 mmol/L (3.5-5.1) Chloride Level 97 mmol/L (98-107) Carbon Dioxide Level 21 mmol/L (22-29) Anion Gap 14.8 mmol/L (8-16) Blood Urea Nitrogen 16 mg/dL (7-26) Creatinine 0.70 mg/dL (0.57-1.11) Estimat Glomerular Filtration Rate > 60 ML/MIN (60-) BUN/Creatinine Ratio 23 (6-25) Glucose Level 119 mg/dL (74-118) Calcium Level 9.3 mg/dL (8.4-10.2) Magnesium Level 1.8 MG/DL (1.3-2.1) Total Bilirubin 0.4 mg/dL (0.2-1.2) Aspartate Amino Transf (AST/SGOT) 20 IU/L (5-34) Alanine Aminotransferase (ALT/SGPT) 17 IU/L (0-55) Alkaline Phosphatase 74 IU/L (40-150) Creatine Kinase 37 IU/L (29-168) Creatine Kinase MB < 1.00 ng/mL (0-4.3) Troponin I < 0.05 ng/mL (0.0-0.40) B-Type Natriuretic Peptide 77.6 pg/mL (0-100) Total Protein 7.1 g/dL (6.5-8.1) Albumin 3.8 g/dL (3.5-5.0) Globulin 3.3 g/dL (2.3-3.5) Albumin/Globulin Ratio 1.2 (0.8-2.0) Lab results reviewed: Yes Imaging Impressions ct brain No acute abnormalities. Chronic findings: 1. Mild supratentorial white matter small vessel ischemic changes. Signed by: DR Ki Burgos M.D. 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 Clinical Decision Tools NIH Stroke Scale Interval: baselline NIH Stroke Score: NIH Stroke Score Response (Comments) Value Level of Consciousness Alert, Keenly Responsive 0 Level of Consciousness Questions Answers Both Correctly 0 Level of Consciousness Commands Performs Both Tasks 0 Lateral Gaze Paresis Normal 0 Visual Field Loss No Visual Loss 0 Facial Palsy Normal Symmetrical Move 0 Motor Left Arm No Drift, Arm Stays 45/90 0 Motor Right Arm No Drift, Arm Stays 45/90 0 Motor Left Leg No Drift, Arm Stays 45/90 0 Motor Right Leg No Drift, Arm Stays 45/90 0 Limb Ataxia Absent 0 Sensory Loss Normal 0 Language Aphasia No Aphasia, Normal 0 Dysarthria Normal 0 Extinction and Inattention No Abnormality 0 Total 0 Baseline increased by 4: Yes Assessment & Plan Reassessment Reassessment time: 07:38 Reassessment 84y f presented to ed c/o generalized weakness dizziness reported elevated bp 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 follow up with your doctor in 1-2 days without fail 2. return to ed as needed 3. tylenol and motrin as needed 4. increase oral fluids 5. meclizine omnicef Depart Disposition: HOME, SELF-detention Meds Reported Medications Cholecalciferol (Vitamin D3) (Vitamin D3) 10 Mcg Capsule, PO DAILY 11/24/19 Lisinopril (PRINIVIL) 20 Mg Tablet, 20 MG PO DAILY, #30 TAB 11/18/19 Linagliptin (TRADJENTA) 5 Mg Tablet, 5 MG PO DAILY 02/10/19 CRIS SMITH Dec 15, 2019 07:33
[2019-12-15] MEDS ORDERED: ONDANSETRON HCL 4 MG ORAL DISINTEGRATING TAB PO ONE (07:45)
[2019-12-15] MEDS ORDERED: MECLIZINE HCL 12.5 MG TAB PO ONE (07:45)
[2019-12-15 07:52] LABS: BASOPHILS # (AUTO) 0.1 (0.0-0.1); BASOPHILS % 0.9 % (0.0-1.0); EOSINOPHILS # (AUTO) 0.1 (0.0-0.4); EOSINOPHILS % 1.5 % (0.0-6.0); HEMATOCRIT 35.4 % (34.2-44.1); HEMOGLOBIN 11.5 g/dL (12.0-16.0); LYMPHOCYTES # (AUTO) 0.9 (1.0-3.2); LYMPHOCYTES % 15.7 % (18.0-39.1); MEAN CORPUSCULAR HEMOGLOBIN 30.3 pg (28-32); MEAN CORPUSCULAR HGB CONC 32.5 g/dL (31-35); MEAN CORPUSCULAR VOLUME 93.4 fL (81-99); MONOCYTES # (AUTO) 0.6 (0.2-0.8); MONOCYTES % 9.4 % (4.4-11.3); NEUTROPHILS # (AUTO) 4.2 (2.1-6.9); NEUTROPHILS % 72.2 % (38.7-80.0); PLATELET COUNT 245 x10e3/uL (140-360); RED BLOOD COUNT 3.79 x10e6/uL (3.6-5.1); RED CELL DISTRIBUTION WIDTH 13.5 % (11.7-14.4)
[2019-12-15 08:03] LABS: INR 0.82; PARTIAL THROMBOPLASTIN TIME 29.5 seconds (23.8-35.5); PROTHROMBIN TIME 11.8 seconds (11.9-14.5)
[2019-12-15 08:13] LABS: ALANINE AMINOTRANSFERASE 17 IU/L (0-55); ALBUMIN 3.8 g/dL (3.5-5.0); ALBUMIN/GLOBULIN RATIO 1.2 (0.8-2.0); ALKALINE PHOSPHATASE 74 IU/L (40-150); ANION GAP 14.8 mmol/L (8-16); BLOOD UREA NITROGEN 16 mg/dL (7-26); BUN/CREATININE RATIO 23 (6-25); CALCIUM 9.3 mg/dL (8.4-10.2); CARBON DIOXIDE 21 mmol/L (22-29); CHLORIDE 97 mmol/L (98-107); CREATINE KINASE 37 IU/L (29-168); EST GLOMERULAR FILTRATION RATE > 60 ML/MIN (60-); GLUCOSE 119 mg/dL (74-118); MAGNESIUM 1.8 MG/DL (1.3-2.1); POTASSIUM 3.8 mmol/L (3.5-5.1); SODIUM 129 mmol/L (136-145)
[2019-12-15 08:14] LABS: BILIRUBIN,URINE NEGATIVE (NEGATIVE); CLARITY,URINE SL CLOUDY (CLEAR); COLOR,URINE YELLOW (YELLOW); KETONES,URINE NEGATIVE (NEGATIVE); LEUKOCYTE ESTERASE ,URINE MODERATE (NEGATIVE); NITRITE,URINE NEGATIVE (NEGATIVE); PROTEIN,URINE DIPSTICK NEGATIVE (NEGATIVE); URINE UROBILINOGEN 0.2 mg/dL (0.2 - 1)
[2019-12-15 08:19] LABS: CREATINE KINASE MB < 1.00 ng/mL (0-4.3)
--- NOTE | 2019-12-15 08:23 | Diagnostic Imaging Report ---
EXAM: CHEST SINGLE (PORTABLE) DATE: 12/15/2019 7:53 AM INDICATION: Hypertension COMPARISON: None FINDINGS: The trachea is midline. The lungs are symmetrically expanded without evidence for large focal consolidation, pneumothorax, or significant pleural effusion. The cardiomediastinal silhouette and pulmonary vasculature are within normal limits. No acute osseous abnormality is identified. The surrounding soft tissues are unremarkable. IMPRESSION: No acute cardiopulmonary process identified. Signed by: Dr. Tobin Nicole MD on 12/15/2019 8:20 AM
[2019-12-15 08:24] LABS: WBC,URINE (MAN) 21-50 /HPF (0-5)
[2019-12-15 08:25] LABS: BACTERIA,URINE MODERATE /HPF; EPITHELIAL CELLS,URINE FEW /LPF; RBC,URINE 0-5 /HPF (0-5); TRANSITIONAL EPI CELLS,URINE FEW
[2019-12-15] MEDS ORDERED: CEFTRIAXONE SOD 1 GM/NS 50 ML 50 ML IV ONE (08:45)
--- NOTE | 2019-12-15 08:48 | Diagnostic Imaging Report ---
History:High blood pressure, dizziness, weakness. Comparison studies:None Technique: Axial images were obtained from the skull base to the vertex. Coronal and sagittal images reconstructed from the axial data. Intravenous contrast: None Dose modulation, iterative reconstruction, and/or weight based adjustment of the mA/kV was utilized to reduce the radiation dose to as low as reasonably achievable. Findings: Scalp/skull: No abnormalities. Extra-axial spaces: No masses. No fluid collections. Brain sulci: Mildly prominent. Ventricles: Mild compensatory dilatation. No hydrocephalus. Parenchyma: Few subtle hypodensities in the supratentorial white matter are small vessel ischemic changes. No masses, hemorrhage, acute or chronic cortical vascular insults. Sellar/suprasellar region: No abnormalities. Craniocervical junction: Patent foramen magnum. No Chiari one malformation. Incidental findings: Atherosclerotic calcifications in the carotid siphons . Subcentimeter left frontal sinus osteoma, incidentally noted. Impression: No acute abnormalities. Chronic findings: 1. Mild supratentorial white matter small vessel ischemic changes. Signed by: DR Ki Burgos M.D. on 12/15/2019 8:44 AM
[2019-12-15 09:32] LABS: THYROID STIMULATING HORMONE 3.462 uIU/mL (0.350-4.940)
[2019-12-15] MEDS ORDERED: CEFTRIAXONE SOD 1 GM VIAL ONE (09:32)
== END 2019-12-15 09:41 | disposition home or self-care (01) ==
LOC: ER 07:07
DX: R42 Dizziness and giddiness (principal); R53.1 Weakness; N39.0 Urinary tract infection, site not specified; I10 Essential (primary) hypertension; E11.9 Type 2 diabetes mellitus without complications; F41.9 Anxiety disorder, unspecified; K21.9 Gastro-esophageal reflux disease without esophagitis; E78.5 Hyperlipidemia, unspecified
CPT/HCPCS: 36415; 70450; 71045; 80053; 81001; 82550; 82553; 83735; 83880; 84443; 84484; 85025; 85610; 85730; 87086; 93005; 99284; J0696; Q0162

== ENCOUNTER 2019-12-27 19:29 | Emergency (ER) | payer MEDICARE, OTHER ==
[~2019-12-27] VITALS: Ht 149.9 cm; Wt 58.5 kg
[2019-12-27] MEDS ORDERED: SODIUM CHLORIDE 0.9% 1000ML 1,000 ML IV STA (19:54)
--- NOTE | 2019-12-27 20:00 | Emergency Department Note ---
History of Present Illnes History of Present Illness Chief Complaint: Hypertension History of Present Illness This is a 84 year old female . Past Medical/Family History Physician Review I have reviewed the patient's past medical and family history. Any updates have been documented here. Past Medical History Past Medical History: Hypertension, Diabetes, UTI's, Anxiety, Depression, GERD, Hyperlipedemia, Osteoarthritis Other Medical History: ARTHRITIS CHRONIC PAIN OSTEOPOROSIS Past Surgical History: Cholecysctectomy, Appendectomy, Hysterectomy, Hernia Repair Other Surgery: HYST GB APPY HERNIA X3 LT EAR Other Last Tetanus: UNKNOWN Review of Systems Review of Systems Constitutional: Reports weakness EENTM: Reports no symptoms Cardiovascular: Reports no symptoms Respiratory: Reports no symptoms Gastrointestinal: Reports no symptoms Genitourinary: Reports no symptoms Musculoskeletal: Reports no symptoms Integumentary: Reports no symptoms Neurological: Reports no symptoms Psychological: Reports no symptoms Endocrine: Reports no symptoms Hematological/Lymphatic: Reports no symptoms Physical Exam Related Data Allergies: Coded Allergies: codeine (Verified Allergy, Intermediate, STOMACH PAIN, 10/31/19) lorazepam (Verified Allergy, Intermediate, 10/31/19) Triage Vital Signs Vital Signs Date Time Temp Pulse Resp B/P (MAP) Pulse Ox O2 Delivery O2 Flow Rate FiO2 12/27/19 19:48 98.2 79 18 160/91 98 Vital signs reviewed: Yes Physical Exam CONSTITUTIONAL Constitutional: Present well-developed, Present well-nourished, Present morbidly obese HENT HENT: Present normocephalic, Present atraumatic, Present oropharynx clear/moist, Present nose normal HENT L/R: Present left ext ear normal, Present right ext ear normal EYES Eyes: Reports PERRL, Reports conjunctivae normal NECK Neck: Present ROM normal PULMONARY Pulmonary: Present effort normal, Present breath sounds normal CARDIOVASCULAR Cardiovascular: Present regular rhythm, Present heart sounds normal, Present capillary refill normal, Present normal rate GASTROINTESTINAL Abdominal: Present soft, Present nontender, Present bowel sounds normal GENITOURINARY Genitourinary: Present exam deferred SKIN Skin: Present warm, Present dry MUSCULOSKELETAL Musculoskeletal: Present ROM normal NEUROLOGICAL Neurological: Present alert, Present oriented x 3, Present no gross motor or sensory deficits PSYCHOLOGICAL Psychological: Present mood/affect normal, Present judgement normal Results Laboratory Lab results reviewed: Yes Laboratory comments Laboratory Tests Test 12/27/19 20:02 White Blood Count 7.05 x10e3/uL (4.8-10.8) Red Blood Count 3.88 x10e6/uL (3.6-5.1) Hemoglobin 11.8 g/dL (12.0-16.0) Hematocrit 36.4 % (34.2-44.1) Mean Corpuscular Volume 93.8 fL (81-99) Mean Corpuscular Hemoglobin 30.4 pg (28-32) Mean Corpuscular Hemoglobin Concent 32.4 g/dL (31-35) Red Cell Distribution Width 13.3 % (11.7-14.4) Platelet Count 321 x10e3/uL (140-360) Neutrophils (%) (Auto) 80.2 % (38.7-80.0) Lymphocytes (%) (Auto) 12.2 % (18.0-39.1) Monocytes (%) (Auto) 6.1 % (4.4-11.3) Eosinophils (%) (Auto) 0.6 % (0.0-6.0) Basophils (%) (Auto) 0.6 % (0.0-1.0) Neutrophils # (Auto) 5.7 (2.1-6.9) Lymphocytes # (Auto) 0.9 (1.0-3.2) Monocytes # (Auto) 0.4 (0.2-0.8) Eosinophils # (Auto) 0.0 (0.0-0.4) Basophils # (Auto) 0.0 (0.0-0.1) Absolute Immature Granulocyte (auto 0.02 x10e3/uL (0-0.1) Urine Color Yellow (YELLOW) Urine Clarity Clear (CLEAR) Urine pH 6 (5 - 7) Urine Specific [place] 1.010 (1.010-1.025) Urine Protein Negative (NEGATIVE) Urine Glucose (UA) Negative (NEGATIVE) Urine Ketones Negative (NEGATIVE) Urine Blood Trace (NEGATIVE) Urine Nitrite Negative (NEGATIVE) Urine Bilirubin Negative (NEGATIVE) Urine Urobilinogen 0.2 mg/dL (0.2 - 1) Urine Leukocyte Esterase Small (NEGATIVE) Urine RBC 6-10 /HPF (0-5) Urine WBC 6-10 /HPF (0-5) Urine Epithelial Cells Few /LPF (NONE) Urine Bacteria Rare /HPF (NONE) Sodium Level 134 mmol/L (136-145) Potassium Level 4.5 mmol/L (3.5-5.1) Chloride Level 103 mmol/L (98-107) Carbon Dioxide Level 25 mmol/L (22-29) Anion Gap 10.5 mmol/L (8-16) Blood Urea Nitrogen 14 mg/dL (7-26) Creatinine 0.79 mg/dL (0.57-1.11) Estimat Glomerular Filtration Rate > 60 ML/MIN (60-) BUN/Creatinine Ratio 18 (6-25) Glucose Level 100 mg/dL (74-118) Calcium Level 9.7 mg/dL (8.4-10.2) Total Bilirubin 0.2 mg/dL (0.2-1.2) Aspartate Amino Transf (AST/SGOT) 23 IU/L (5-34) Alanine Aminotransferase (ALT/SGPT) 20 IU/L (0-55) Alkaline Phosphatase 113 IU/L (40-150) Creatine Kinase 34 IU/L (29-168) Creatine Kinase MB 0.30 ng/mL (0-5.0) Troponin I < 0.001 ng/mL (0-0.300) B-Type Natriuretic Peptide 27.2 pg/mL (0-100) Total Protein 7.6 g/dL (6.5-8.1) Albumin 3.7 g/dL (3.5-5.0) Globulin 3.9 g/dL (2.3-3.5) Albumin/Globulin Ratio 0.9 (0.8-2.0) Imaging Imaging results reviewed: Yes Impressions [place] [id number] Patient Name: SHARLENE MOORE MR #: [id number] : 1935 Age/Sex: 84/F Req #: [id number] Adm Physician: Ordered by: ZAINAB CHUNG DO Report #: [id number] Location: ER Room/Bed: Procedure: [id number] CT/CT CHEST WO Exam Date: 12/27/19 Exam Time: 2154 REPORT STATUS: Signed EXAM: CT Chest WITHOUT contrast INDICATION: Weakness, elevated blood pressure COMPARISON: None TECHNIQUE: Chest was scanned utilizing a multidetector helical scanner from the lung apex through the level of the adrenal glands without administration of IV contrast. Absence of intravenous contrast decreases sensitivity for detection of lymphadenopathy and vascular pathology. Coronal and sagittal reformations were obtained. Routine protocol was performed. IV CONTRAST: None COMPLICATIONS: None RADIATION DOSE: Total DLP: 397 mGy*cm Estimated effective dose: (DLP x 0.014 x size factor) mSv CTDIvol has been reviewed. It is below the limits set by the Radiation Protocol Committee (RPC). Dose modulation, iterative reconstruction, and/or weight based adjustment of the mA/kV was utilized to reduce the radiation dose to as low as reasonably achievable. FINDINGS: LINES/ TUBES: None. LUNGS AND AIRWAYS: The lungs are unremarkable. Airways are normal. PLEURA: The pleural spaces are clear. HEART AND MEDIASTINUM: Multiple thyroid nodules, largest measures 1.5 cm. No mediastinal, hilar or axillary lymphadenopathy. The heart is normal in size. There is no pericardial effusion. Calcifications of the aorta and major branches including the coronary arteries. UPPER ABDOMEN: Pancreatic atrophy. BONES: The visualized bony thorax is within normal limits. SOFT TISSUES: Unremarkable. IMPRESSION: Triple vessel coronary artery calcific atherosclerosis. Multiple thyroid nodules, largest measures 1.5 cm. Recommend thyroid ultrasound for further evaluation. Signed by: Adrian Edwards DO on 12/27/2019 11:42 PM Dictated By: ADRIAN EDWARDS DO 41 Transcribed By: JOHN on 12/27/192341 COPY TO: ZAINAB CHUNG DO~ [place] [id number] Patient Name: SHARLENE MOORE MR #: [id number] : 1935 Age/Sex: 84/F Req #: [id number] Adm Physician: Ordered by: ZAINAB CHUNG DO Report #: [id number] Location: Room/Bed: Procedure: [id number] CT/CT BRAIN WO Exam Date: 12/27/19 Exam Time: 2154 REPORT STATUS: Signed CT BRAIN WO HISTORY: Weakness, high blood pressure COMPARISON: Head CT 12/15/2019 Technique: Noncontrast axial scans were obtained from skull base to the vertex. Coronal and sagittal reconstructions obtained from the axial data. One or more of the following dose reduction techniques were used: Automated exposure control, adjustment of the mA and/or kV according to patient size, and/or utilization of iterative reconstruction technique. DISCUSSION: Scalp/Skull: Unremarkable. Brain sulci: Mildly prominent. Ventricles: Compensatory dilatation. Extra-axial spaces: No masses or fluid collections. Carotid siphon calcifications are present. Parenchyma: Mild bilateral deep white matter hypodensity is likely chronic microvascular ischemic change. Otherwise, no masses, hemorrhage, or large vascular territory acute infarct. Dural sinuses: No abnormal densities. Sellar/Suprasellar region: Intact. Skull base: Intact. 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 IMPRESSION: 1. No acute intracranial abnormalities. 2. Mild supratentorial chronic microvascular ischemic change. Mild generalized cerebral volume loss. Signed by: Dr. Rishi Shukla M.D. 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 Date: Dec 27, 2019 Time: 19:59 Prior ECG tracings: reviewed Rhythm: sinus rhythm Rate: normal BPM: 76 QRS axis: normal ST segments normal: Yes T waves normal: Yes Clinical Impression: normal ECG Assessment & Plan Assessment & Plan Final Impression: (1) Dizziness Home Meds Reported Medications Cholecalciferol (Vitamin D3) (Vitamin D3) 10 Mcg Capsule, PO DAILY 11/24/19 Lisinopril (PRINIVIL) 20 Mg Tablet, 20 MG PO DAILY, #30 TAB 11/18/19 Linagliptin (TRADJENTA) 5 Mg Tablet, 5 MG PO DAILY 02/10/19 Medications in the ED Sodium Chloride 1,000 ml @ 0 mls/hr Q0M STAT IV ; Start 12/27/19 at 19:54; Stop 12/27/19 at 19:56; Status ZAINAB PARRISH DO Dec 27, 2019 20:00
[2019-12-27 20:17] LABS: BASOPHILS % 0.6 % (0.0-1.0); EOSINOPHILS % 0.6 % (0.0-6.0); HEMATOCRIT 36.4 % (34.2-44.1); HEMOGLOBIN 11.8 g/dL (12.0-16.0); LYMPHOCYTES # (AUTO) 0.9 (1.0-3.2); LYMPHOCYTES % 12.2 % (18.0-39.1); MEAN CORPUSCULAR HEMOGLOBIN 30.4 pg (28-32); MEAN CORPUSCULAR HGB CONC 32.4 g/dL (31-35); MEAN CORPUSCULAR VOLUME 93.8 fL (81-99); MONOCYTES # (AUTO) 0.4 (0.2-0.8); MONOCYTES % 6.1 % (4.4-11.3); NEUTROPHILS # (AUTO) 5.7 (2.1-6.9); NEUTROPHILS % 80.2 % (38.7-80.0); PLATELET COUNT 321 x10e3/uL (140-360); RED BLOOD COUNT 3.88 x10e6/uL (3.6-5.1); RED CELL DISTRIBUTION WIDTH 13.3 % (11.7-14.4)
[2019-12-27 20:24] LABS: CLARITY,URINE CLEAR (CLEAR); COLOR,URINE YELLOW (YELLOW); LEUKOCYTE ESTERASE ,URINE SMALL (NEGATIVE)
[2019-12-27 20:25] LABS: BILIRUBIN,URINE NEGATIVE (NEGATIVE); KETONES,URINE NEGATIVE (NEGATIVE); NITRITE,URINE NEGATIVE (NEGATIVE); PROTEIN,URINE DIPSTICK NEGATIVE (NEGATIVE); URINE UROBILINOGEN 0.2 mg/dL (0.2 - 1)
[2019-12-27 20:36] LABS: ALANINE AMINOTRANSFERASE 20 IU/L (0-55); ALBUMIN 3.7 g/dL (3.5-5.0); ALBUMIN/GLOBULIN RATIO 0.9 (0.8-2.0); ALKALINE PHOSPHATASE 113 IU/L (40-150); ANION GAP 10.5 mmol/L (8-16); BACTERIA,URINE RARE /HPF; BLOOD UREA NITROGEN 14 mg/dL (7-26); BUN/CREATININE RATIO 18 (6-25); CALCIUM 9.7 mg/dL (8.4-10.2); CARBON DIOXIDE 25 mmol/L (22-29); CHLORIDE 103 mmol/L (98-107); CREATINE KINASE 34 IU/L (29-168); CREATININE, SERUM 0.79 mg/dL (0.57-1.11); EST GLOMERULAR FILTRATION RATE > 60 ML/MIN (60-); GLUCOSE 100 mg/dL (74-118); POTASSIUM 4.5 mmol/L (3.5-5.1); SODIUM 134 mmol/L (136-145)
[2019-12-27 20:37] LABS: EPITHELIAL CELLS,URINE FEW /LPF
--- NOTE | 2019-12-27 22:43 | Diagnostic Imaging Report ---
CT BRAIN WO HISTORY: Weakness, high blood pressure COMPARISON: Head CT 12/15/2019 Technique: Noncontrast axial scans were obtained from skull base to the vertex. Coronal and sagittal reconstructions obtained from the axial data. One or more of the following dose reduction techniques were used: Automated exposure control, adjustment of the mA and/or kV according to patient size, and/or utilization of iterative reconstruction technique. DISCUSSION: Scalp/Skull: Unremarkable. Brain sulci: Mildly prominent. Ventricles: Compensatory dilatation. Extra-axial spaces: No masses or fluid collections. Carotid siphon calcifications are present. Parenchyma: Mild bilateral deep white matter hypodensity is likely chronic microvascular ischemic change. Otherwise, no masses, hemorrhage, or large vascular territory acute infarct. Dural sinuses: No abnormal densities. Sellar/Suprasellar region: Intact. Skull base: Intact. 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 IMPRESSION: 1. No acute intracranial abnormalities. 2. Mild supratentorial chronic microvascular ischemic change. Mild generalized cerebral volume loss. Signed by: Dr. Rishi Shukla M.D. on 12/27/2019 10:40 PM
[2019-12-27] MEDS ORDERED: SODIUM CHLORIDE 0.9% 1000ML 1,000 ML ONE (23:36)
--- NOTE | 2019-12-27 23:46 | Diagnostic Imaging Report ---
EXAM: CT Chest WITHOUT contrast INDICATION: Weakness, elevated blood pressure COMPARISON: None TECHNIQUE: Chest was scanned utilizing a multidetector helical scanner from the lung apex through the level of the adrenal glands without administration of IV contrast. Absence of intravenous contrast decreases sensitivity for detection of lymphadenopathy and vascular pathology. Coronal and sagittal reformations were obtained. Routine protocol was performed. IV CONTRAST: None COMPLICATIONS: None RADIATION DOSE: Total DLP: 397 mGy*cm Estimated effective dose: (DLP x 0.014 x size factor) mSv CTDIvol has been reviewed. It is below the limits set by the Radiation Protocol Committee (RPC). Dose modulation, iterative reconstruction, and/or weight based adjustment of the mA/kV was utilized to reduce the radiation dose to as low as reasonably achievable. FINDINGS: LINES/ TUBES: None. LUNGS AND AIRWAYS: The lungs are unremarkable. Airways are normal. PLEURA: The pleural spaces are clear. HEART AND MEDIASTINUM: Multiple thyroid nodules, largest measures 1.5 cm. No mediastinal, hilar or axillary lymphadenopathy. The heart is normal in size. There is no pericardial effusion. Calcifications of the aorta and major branches including the coronary arteries. UPPER ABDOMEN: Pancreatic atrophy. BONES: The visualized bony thorax is within normal limits. SOFT TISSUES: Unremarkable. IMPRESSION: Triple vessel coronary artery calcific atherosclerosis. Multiple thyroid nodules, largest measures 1.5 cm. Recommend thyroid ultrasound for further evaluation. Signed by: Adrian Edwards DO on 12/27/2019 11:42 PM
== END 2019-12-28 01:09 | disposition home or self-care (01) ==
LOC: ER 19:29
DX: R42 Dizziness and giddiness (principal); I10 Essential (primary) hypertension; E11.9 Type 2 diabetes mellitus without complications; F41.9 Anxiety disorder, unspecified; K21.9 Gastro-esophageal reflux disease without esophagitis; E78.5 Hyperlipidemia, unspecified; G89.29 Other chronic pain
CPT/HCPCS: 36415; 70450; 71250; 80053; 81001; 82550; 82553; 83880; 84484; 85025; 99284; J7030; 93005

== ENCOUNTER → 2020-01-27 | Outpatient (CLI) | payer MEDICARE, OTHER ==
--- NOTE | 2020-01-27 13:38 | Diagnostic Imaging Report ---
Small bowel follow-through Comparison: None Clinical History: Back tarry stools. Abdominal pain since . Total Patient Fluoro Time: 2.1 minutes Radiation dose: 10.0 mGy Kerma-area. Total number of images submitted: 8. Circular Shear Operator radiographs were obtained. After oral ingestion of barium overhead x-ray images were obtained over the abdomen periodically until the barium across the ileocecal valve. Spot compression views of the areas of interest were obtained through photospot images additionally. Report: Circular Shear Operator: Nonobstructive bowel gas pattern. Copious amounts of fecal matter. No calculi. No pneumatosis. No air over the liver. 5 lumbar type vertebrae. Degenerative changes of the bones. No aggressive bony lesions seen. Lower chest unremarkable. There is no evidence of intrinsic or extrinsic mass effect or mass involving the stomach or duodenum. The colon was visualized in 2 hours. The terminal ileum is not well-visualized. There is no evidence of bowel obstruction. The small bowel loops are non- dilated and the small bowel folds are none thickened. Incidentally noted are two Small bowel diverticula on the mesenteric border. Impression: Unremarkable small bowel follow through. Signed by: Elias Shepherd MD on 01/27/2020 1:34 PM
== END ==
LOC: DX 08:17
PROVIDERS: ATTEND Internal Medicine Gastroenterology
DX: K92.1 Melena (principal); Z11.59 Encounter for screening for other viral diseases
CPT/HCPCS: 36415; 74250; 82948; U0002

== ENCOUNTER 2020-02-24 15:55 | Emergency (ER) | payer MEDICARE, OTHER ==
[~2020-02-24] VITALS: Ht 149.9 cm; Wt 58.5 kg
[2020-02-24] MEDS ORDERED: ONDANSETRON HCL INJ 2MG/ML 2ML 2 MG/ML VIAL IV PRN (16:15)
[2020-02-24] MEDS ORDERED: FENTANYL CITRATE/PF 100MCG/2 ML INJ IV ONE (16:15)
--- NOTE | 2020-02-24 16:18 | Emergency Department Note ---
History of Present Illnes History of Present Illness Chief Complaint: Abdominal Complaints History of Present Illness This is a 85 year old female Chief Complaint Comment first states abd pain LLQ and now states pain to entire lower abd and across entire back. pt states painful. pt states nausea. pt aaox4. ambulatory. states stools are dark, history of constipation. denies hx of diverticulitis. pt states she talked to a doctor for a colonoscopy, but doesnt know who he is. Historian: Patient Arrival Mode: Car Super[employer] Required: No Onset (how long ago): week(s) (1) Location: LLQ Quality: Sharp Radiation: Reports back Severity: moderate Onset quality: gradual Duration (how long): week(s) Timing of current episode: constant Progression: worsening Chronicity: new Context: Denies recent illness Relieving factors: none Exacerbating factors: none Associated symptoms: Reports denies other symptoms Treatments prior to arrival: none (JONATHAN UNDERWOOD MD) Past Medical/Family History Physician Review I have reviewed the patient's past medical and family history. Any updates have been documented here. (JONATHAN UNDERWOOD MD) Past Medical History Recent Fever: No Clinical Suspicion of Infectio: No New/Unexplained Change in Ment: No Past Medical History: Hypertension, Diabetes, UTI's, Anxiety, Depression, GERD, Hyperlipedemia, Osteoarthritis Other Medical History: ARTHRITIS CHRONIC PAIN OSTEOPOROSIS Past Surgical History: Cholecysctectomy, Appendectomy, Hysterectomy, Hernia Repair Other Surgery: HYST GB APPY HERNIA X3 LT EAR (JONATHAN UNDERWOOD MD) Other Last Tetanus: UNKNOWN (JONATHAN UNDERWOOD MD) Review of Systems Review of Systems Constitutional: Reports no symptoms EENTM: Reports no symptoms Cardiovascular: Reports no symptoms Respiratory: Reports no symptoms Gastrointestinal: Reports as per HPI, Reports abdominal pain (LLQ) Genitourinary: Reports no symptoms Musculoskeletal: Reports no symptoms Integumentary: Reports no symptoms Neurological: Reports no symptoms Psychological: Reports no symptoms Endocrine: Reports no symptoms Hematological/Lymphatic: Reports no symptoms (JONATHAN UNDERWOOD MD) Physical Exam Related Data Allergies: Coded Allergies: codeine (Verified Allergy, Intermediate, STOMACH PAIN, 10/31/19) lorazepam (Verified Allergy, Intermediate, 10/31/19) Triage Vital Signs Vital Signs Date Time Temp Pulse Resp B/P (MAP) Pulse Ox O2 Delivery O2 Flow Rate FiO2 02/24/20 16:07 98.8 96 16 106/91 99 Room Air Vital signs reviewed: Yes (JONATHAN UNDERWOOD MD) Physical Exam CONSTITUTIONAL Constitutional: Present well-developed, Present well-nourished HENT HENT: Present normocephalic, Present atraumatic, Present oropharynx clear/moist, Present nose normal HENT L/R: Present left ext ear normal, Present right ext ear normal EYES Eyes: Reports PERRL, Reports conjunctivae normal NECK Neck: Present ROM normal PULMONARY Pulmonary: Present effort normal, Present breath sounds normal CARDIOVASCULAR Cardiovascular: Present regular rhythm, Present heart sounds normal, Present capillary refill normal, Present normal rate GASTROINTESTINAL Abdominal: Present soft, Present bowel sounds normal, Present tender (LLQ) GENITOURINARY Genitourinary: Present exam deferred SKIN Skin: Present warm, Present dry MUSCULOSKELETAL Musculoskeletal: Present ROM normal NEUROLOGICAL Neurological: Present alert, Present oriented x 3, Present no gross motor or sensory deficits PSYCHOLOGICAL Psychological: Present mood/affect normal, Present judgement normal (JONATHAN UNDERWOOD MD) Results Laboratory Laboratory Laboratory Tests Test 02/24/20 17:23 02/24/20 16:11 White Blood Count 6.91 x10e3/uL (4.8-10.8) Red Blood Count 4.08 x10e6/uL (3.6-5.1) Hemoglobin 12.6 g/dL (12.0-16.0) Hematocrit 38.3 % (34.2-44.1) Mean Corpuscular Volume 93.9 fL (81-99) Mean Corpuscular Hemoglobin 30.9 pg (28-32) Mean Corpuscular Hemoglobin Concent 32.9 g/dL (31-35) Red Cell Distribution Width 12.9 % (11.7-14.4) Platelet Count 266 x10e3/uL (140-360) Neutrophils (%) (Auto) 75.6 % (38.7-80.0) Lymphocytes (%) (Auto) 15.2 % (18.0-39.1) Monocytes (%) (Auto) 7.5 % (4.4-11.3) Eosinophils (%) (Auto) 0.7 % (0.0-6.0) Basophils (%) (Auto) 0.7 % (0.0-1.0) Neutrophils # (Auto) 5.2 (2.1-6.9) Lymphocytes # (Auto) 1.1 (1.0-3.2) Monocytes # (Auto) 0.5 (0.2-0.8) Eosinophils # (Auto) 0.1 (0.0-0.4) Basophils # (Auto) 0.1 (0.0-0.1) Absolute Immature Granulocyte (auto 0.02 x10e3/uL (0-0.1) Sodium Level 134 mmol/L (136-145) Potassium Level 4.2 mmol/L (3.5-5.1) Chloride Level 99 mmol/L (98-107) Carbon Dioxide Level 24 mmol/L (22-29) Anion Gap 15.2 mmol/L (8-16) Blood Urea Nitrogen 12 mg/dL (7-26) Creatinine 0.78 mg/dL (0.57-1.11) Estimat Glomerular Filtration Rate > 60 ML/MIN (60-) BUN/Creatinine Ratio 15 (6-25) Glucose Level 99 mg/dL (74-118) Calcium Level 9.7 mg/dL (8.4-10.2) Total Bilirubin 0.3 mg/dL (0.2-1.2) Aspartate Amino Transf (AST/SGOT) 24 IU/L (5-34) Alanine Aminotransferase (ALT/SGPT) 19 IU/L (0-55) Alkaline Phosphatase 87 IU/L (40-150) Troponin I 0.009 ng/mL (0-0.300) Total Protein 8.1 g/dL (6.5-8.1) Albumin 4.1 g/dL (3.5-5.0) Globulin 4.0 g/dL (2.3-3.5) Albumin/Globulin Ratio 1.0 (0.8-2.0) Lipase 8 U/L (8-78) Urine Color Yellow (YELLOW) Urine Clarity Sl cloudy (CLEAR) Urine pH 6.5 (5 - 7) Urine Specific [place] 1.025 (1.010-1.025) Urine Protein Negative (NEGATIVE) Urine Glucose (UA) Negative (NEGATIVE) Urine Ketones Trace (NEGATIVE) Urine Blood Trace (NEGATIVE) Urine Nitrite Negative (NEGATIVE) Urine Bilirubin Negative (NEGATIVE) Urine Urobilinogen 0.2 mg/dL (0.2 - 1) Urine Leukocyte Esterase Small (NEGATIVE) Urine RBC 6-10 /HPF (0-5) Urine WBC 6-10 /HPF (0-5) Urine Epithelial Cells Few /LPF (NONE) Urine Transitional Epithelial Cells Few (NONE) Urine Bacteria Many /HPF (NONE) Urine Mucus Many (RARE) Lab results reviewed: Yes (JOVANI VERONICA MD) Imaging Imaging results reviewed: Yes Impressions EXAMINATION: CT of the abdomen and pelvis with contrast. TECHNIQUE: Spiral CT images of the abdomen and pelvis were performed from the lung bases to the lesser trochanters after the intravenous administration of 100 cc of Isovue 370 and the oral administration of water. Coronal and sagittal reformatted images were obtained. COMPARISON: CT abdomen and pelvis 04/28/2019 and 09/28/2019 CLINICAL HISTORY:Left lower quadrant pain, nausea DISCUSSION: ABDOMEN/PELVIS: LOWER THORAX:Unremarkable. HEPATOBILIARY: No focal hepatic lesions. Mild to moderate prominence of the central intrahepatic bile ducts. The common bile duct is borderline to minimally dilated, which measures 6-7 mm at the john hepatis. No radiopaque intraluminal filling defects. GALLBLADDER: Not visualized. SPLEEN: No splenomegaly. PANCREAS: No focal masses or ductal dilatation. ADRENALS: No adrenal nodules. KIDNEYS/URETERS: No hydronephrosis, renal or ureteral calculi or solid enhancing masses. Stable 1.4 cm fluid density simple cyst in the left inferior pole (coronal image 50). Mild prominence of the distal portion of the left ureter, with minimal wall enhancement (best seen in coronal image 62). No perinephric stranding. PELVIC ORGANS/BLADDER: Bladder is moderately distended. No focal lesions or wall thickening. PERITONEUM/RETROPERITONEUM: No free air or fluid. LYMPH NODES: No intra-abdominal, retroperitoneal, pelvic or inguinal lymphadenopathy. VESSELS: The celiac trunk,superior and inferior mesenteric and bilateral renal arteries are patent The portal, superior mesenteric and splenic veins are patent. Atherosclerotic calcification of the abdominal aorta and proximal iliac vessels. GI TRACT: No bowel dilation or evidence of obstruction. No pericolonic inflammatory changes. A few scattered diverticula are noted in the sigmoid colon, without diverticulitis. BONES AND SOFT TISSUE: No aggressive lytic or suspicious focal sclerotic lesions. Degenerated disc in the lumbosacral spine, predominantly at L5-S1. Soft tissues are grossly unremarkable. IMPRESSION: 1. No acute abdominopelvic abnormalities. Specifically, no acute abnormal findings in the left lower quadrant to explain the patient's pain. 2. Moderately distended bladder. Correlate for bladder outlet obstruction. 3. Mild to moderate prominence of the central intrahepatic bile ducts and borderline to minimal dilation of the common bile duct, likely reflecting postcholecystectomy status. No radiopaque intraluminal filling defects are noted. Signed by: Dr. Keron Her M.D. on 02/24/2020 7:33 PM Dictated By: KERON HER MD 32 Transcribed By: JOHN on 02/24/201932 COPY TO: JONATHAN UNDERWOOD MD~ (JOVANI VERONICA MD) Assessment & Plan Medical Decision Making MDM Handed Patient off to Dr. Veronica [address] pending (JONATHAN UNDERWOOD MD) Reassessment Reassessment time: 16:15 Reassessment Well appearing, NAD (JONATHAN UNDERWOOD MD) Assessment & Plan Final Impression: (1) Abdominal pain (2) UTI (urinary tract infection) (JONATHAN UNDERWOOD MD) Last Vital Signs Date Time Temp Pulse Resp B/P (MAP) Pulse Ox O2 Delivery O2 Flow Rate FiO2 02/24/20 16:07 98.8 96 16 106/91 99 Room Air (JONATHAN UNDERWOOD MD) Home Meds Reported Medications Cholecalciferol (Vitamin D3) (Vitamin D3) 10 Mcg Capsule, PO DAILY 11/24/19 Lisinopril (PRINIVIL) 20 Mg Tablet, 20 MG PO DAILY, #30 TAB 11/18/19 Linagliptin (TRADJENTA) 5 Mg Tablet, 5 MG PO DAILY 02/10/19 Medications in the ED Ondansetron HCl 4 mg Q4H PRN IV NAUSEA AND VOMITING; Start 02/24/20 at 16:15; Stop 03/25/20 at 16:14 (JONATHAN UNDERWOOD MD) JONATHAN UNDERWOOD MD Feb 24, 2020 16:17 JOVANI VERONICA MD Feb 24, 2020 19:49
--- NOTE | 2020-02-24 16:52 | NUR ---
urine obtained in triage
[2020-02-24 17:33] LABS: BASOPHILS # (AUTO) 0.1 (0.0-0.1); BASOPHILS % 0.7 % (0.0-1.0); EOSINOPHILS # (AUTO) 0.1 (0.0-0.4); EOSINOPHILS % 0.7 % (0.0-6.0); HEMATOCRIT 38.3 % (34.2-44.1); HEMOGLOBIN 12.6 g/dL (12.0-16.0); LYMPHOCYTES # (AUTO) 1.1 (1.0-3.2); LYMPHOCYTES % 15.2 % (18.0-39.1); MEAN CORPUSCULAR HEMOGLOBIN 30.9 pg (28-32); MEAN CORPUSCULAR HGB CONC 32.9 g/dL (31-35); MEAN CORPUSCULAR VOLUME 93.9 fL (81-99); MONOCYTES # (AUTO) 0.5 (0.2-0.8); MONOCYTES % 7.5 % (4.4-11.3); NEUTROPHILS # (AUTO) 5.2 (2.1-6.9); NEUTROPHILS % 75.6 % (38.7-80.0); PLATELET COUNT 266 x10e3/uL (140-360); RED BLOOD COUNT 4.08 x10e6/uL (3.6-5.1); RED CELL DISTRIBUTION WIDTH 12.9 % (11.7-14.4)
[2020-02-24 17:53] LABS: CLARITY,URINE SL CLOUDY (CLEAR); COLOR,URINE YELLOW (YELLOW); KETONES,URINE TRACE (NEGATIVE); LEUKOCYTE ESTERASE ,URINE SMALL (NEGATIVE); NITRITE,URINE NEGATIVE (NEGATIVE); PROTEIN,URINE DIPSTICK NEGATIVE (NEGATIVE)
[2020-02-24 17:54] LABS: BILIRUBIN,URINE NEGATIVE (NEGATIVE); URINE UROBILINOGEN 0.2 mg/dL (0.2 - 1)
[2020-02-24 18:01] LABS: BACTERIA,URINE MANY /HPF; EPITHELIAL CELLS,URINE FEW /LPF; MUCUS,URINE MANY (RARE); TRANSITIONAL EPI CELLS,URINE FEW
[2020-02-24 18:01] LABS: ALANINE AMINOTRANSFERASE 19 IU/L (0-55); ALBUMIN 4.1 g/dL (3.5-5.0); ALKALINE PHOSPHATASE 87 IU/L (40-150); ANION GAP 15.2 mmol/L (8-16); BLOOD UREA NITROGEN 12 mg/dL (7-26); BUN/CREATININE RATIO 15 (6-25); CALCIUM 9.7 mg/dL (8.4-10.2); CARBON DIOXIDE 24 mmol/L (22-29); CHLORIDE 99 mmol/L (98-107); CREATININE, SERUM 0.78 mg/dL (0.57-1.11); EST GLOMERULAR FILTRATION RATE > 60 ML/MIN (60-); GLUCOSE 99 mg/dL (74-118); POTASSIUM 4.2 mmol/L (3.5-5.1); SODIUM 134 mmol/L (136-145)
--- OUTSIDE RECORDS SUMMARY | 2020-02-24 18:10 | XMS REPORT | Continuity of Care Document ---
Author Author Joseph Micah [employer], SHARLENE Mendoza Organization [facility] Address Unknown Phone Unavailable Care Team Providers Care Finance Manager Name Role Phone [employer] Information [employer] Unavailable Un available Problems Problem Status Onset Date Classification Date Reported Comments Source DX: M25.512-PAIN IN LEFT SHOULDER Active 01/30/2019 [facility] OSTEOPOROSIS Active 03/11/2014 [facility] ROUTINE SCREENING Active 02/01/2012 [facility] ABNORMAL CHEST XRAY Active 08/21/2011 [facility] INCISIONAL HERNIA [id number] Active 07/28/2011 [facility] INCISIONAL HERNIA Active 07/28/2011 [facility] ABD PAIN Active 05/09/2011 [facility] DM - Diabetes mellitus Active Problem 08/29/2011 [facility] GERD - Gastro-esophageal reflux disease Active Problem 08/29/2011 [facility] HTN - Hypertension Active Problem 08/29/2011 [facility] Incisional hernia Active Problem 08/29/2011 [facility] Arthritis (disorder) Active Problem 09/04/2019 [facility] [place] Diabetes mellitus (disorder) A ctive Problem [facility] [place] Gastroesophageal reflux disease (disorder) Active Problem 09/04/2019 [facility] [place] Hypertensive disorder, systemic arterial (disorder) Active Problem 09/04/2019 [facility] [place] Incisional hernia (disorder) A ctive Problem [facility] [place] Arthritis Active Problem 08/29/2011 [facility] INCISIONAL HERNIA Active [facility] Medications Medication Details Route Status Patient Instructions Ordering Provider Order Date Source Restoril 15 mg, 1 cap, Route: PO, Drug form: CAP, Bedtime, PRN Sleep, Start date: 08/26/11 12:04:00, Duration: 30 day, Stop date: 09/25/11 12:03:00 PO No Longer Active Gelber 08/26/2011 [facility] Crestor 20 mg, 2 tab, Route: P O, Drug form: TAB, Bedtime, Start date: 08/25/11 21:00:00, Duration: 30 day, Stop date: 09/23/11 21:00:00 PO No Longer Active Hadad 08/26/2011 [facility] tramadol 50 mg oral tablet 50 mg, 1 tab, Route: PO, Drug form: TAB, Q4H, PRN Pain, Start date: 08/25/11 17:31:00, Duration: 30 day, Stop date: 09/24/11 17:30:00 PO No Longer Active Hadad 08/25/2011 [facility] Tylenol 325 mg, 1 tab, Route: PO, Drug form: TAB, Q4H, PRN Pain, Start date: 08/25/11 17:31:00, Duration: 30 day, Stop date: 09/24/11 17:30:00 PO No Longer Active Hadad 08/25/2011 [facility] Ultracet oral tablet 1 tab, Ro brody: PO, Drug Form: TAB, Q4H, PRN Pain, Start date: 08/25/11 11:05:00, Duration: 30 day, Stop date: 09/24/11 11:04:00 PO No Longer Active Hadad 08/25/2011 [facility] Milk of Magnesia 60 ml, Route: PO, Drug Form: SUSP, ONCE, Start date: 08/25/11 11:04:00, Stop date: 08/25/11 11:04:00 PO No Longer Active Hadad 08/25/2011 [facility] Diovan 80 mg, 1 tab, Route: PO , Drug form: TAB, Daily, Start date: 08/25/11 9:00:00, Duration: 30 day, Stop date: 09/23/11 9:00:00 PO No Longer Active Hadad 08/25 [facility] metFORmin 500 mg oral tablet 5 00 mg, 1 tab, Route: PO, Drug form: TAB, Breakfast, Start date: 08/25/11 8:00:00, Duration: 30 day, Stop date: 09/23/11 8:00:00 PO No Longer Active Hadad 08/25/2011 [facility] acetaminophen-hydrocodone 325 mg-5 mg oral tablet 1 tab, Route: PO, Drug Form: TAB, Q4H, PRN Pain, Start date: 08/24/11 13:06:00, Duration: 30 day, Stop date: 09/23/11 13:05:00 PO No Longer Active Hadad 08/24/2011 [facility] Dilaudid 0.5 mg, 0.25 mL, Rout e: IVP, Drug form: INJ, Q3H, PRN Severe Pain, Start date: 08/24/11 13:06:00, Duration: 30 day, Stop date: 09/23/11 13:05:00 IVP No Longer Active Hadad 08/24/2011 [facility] NovoLog FlexPen 18 unit, 0.18 mL, Route: SUB-Q, Drug form: SOLN, Q6H, PRN Blood Glucose Results, Start date: 08/24/11 13:04:00, Duration: 30 day, Stop date: 09/23/11 13:03:00 SUB-Q No Longer Active Hadad 08/24/2011 [facility] glucagon 1 mg, Route: IM, Drug form: PDR/INJ, PRN, PRN Blood Glucose Results, Start date: 08/24/11 13:04:00, Duration: 30 day, Stop date: 09/23/11 14:03:00 IM No Longer Active Hadad 08/24/2011 [facility] Dextrose 50% in Water IV 50 mL , Route: IVP, PRN, Blood Glucose Results, Start date: 08/24/11 13:04:00, Duration: 30 day, Stop date: 09/23/11 14:03:00 IVP No Longer Active Hadad 08/24/2011 [facility] NovoLog FlexPen 9 unit, 0.09 m L, Route: SUB-Q, Drug form: SOLN, Q6H, PRN Blood Glucose Results, Start date: 08/24/11 13:03:00, Duration: 30 day, Stop date: 09/23/11 13:02:00 SUB-Q No Longer Active Hadad 08/24/2011 [facility] Crestor 20 mg oral tablet 20 m g, 1 tab, Bedtime, Substitution Allowed On Hold 08/24/2011 [facility] metFORmin 500 mg oral tablet 5 00 mg, 1 tab, PO, Daily, Substitution Allowed, with breakfastwith breakfast PO On Hold 08/24/2011 [facility] Unasyn 3 gm, 1 ea, Route: IVPB , ABXQ6H, Start date: 08/23/11 18:00:00, Duration: 24 hr, Stop date: 08/24/11 12:00:00 IVPB No Longer Active Hadad 08/24/2011 [facility] Protonix 40 mg, Route: IVP, Dr ug form: INJ, Before Dinner, Start date: 08/23/11 18:00:00, Duration: 30 day, Stop date: 09/22/11 16:30:00 IVP No Longer Active Hadad 08/24/2011 [facility] No Lovenox No Lovenox, 1, Drug form: MISC, Route: MISC, Continuous, 08/23/11 17:30:00, Duration: 30 day, Stop date: 09/22/11 18:29:00 MISC No Longer Active Hadad 08/23 [facility] Dilaudid 1.5 mg, 0.75 mL, Rout e: IVP, Drug form: INJ, Q3H, PRN Pain, Start date: 08/23/11 17:06:00, Duration: 30 day, Stop date: 09/22/11 17:05:00 IVP No Longer Active Hadad 08/23/2011 [facility] Dextrose 5% with 0.45% NaCl IV 1,000 mL 1,000 mL, Rate: 120 ml/hr, Infuse over: 8.3 hr, Route: IV, Total Volume: 1,000, Start date: 08/23/11 17:04:00, Duration: 30 day, Stop date: 09/22/11 17:03:00 IV No Longer Active Hadad 08/23/2011 [facility] Diovan 80 mg, PO, Daily, Subst itution Allowed PO On Hold 08/23/2011 [facility] lidocaine 1% 0.5 mL, Route: RAINES B-Q, Drug Form: INJ, ONCALL, Start date: 08/23/11 10:00:00, Duration: 1 doses or times SUB-Q No Longer Active Hadad 08/23/2011 [facility] Lactated Ringers Injection IV 1,000 mL 1,000 mL, Rate: 25 ml/hr, Infuse over: 40 hr, Route: IV, Total Volume: 1,000, Start date: 08/23/11 9:44:00, Duration: 30 day, Stop date: 09/22/11 9:43:00 IV No Longer Active Jrared 08/23/2011 [facility] Reglan 10 mg oral tablet 10 mg , 1 tab, PO, QID, PRN, 28 tab, nausea, Substitution Allowed, TAB PO Active Zoe jasmine 05/23/2011 [facility] Pepto-Bismol 262 mg/15 mL oral suspension 262 mg, 15 ml, PO, QID, PRN, 120 ml, for dyspepsia, Substitution Allowed, SUSP PO Active joanne05/23/2011 [facility] Zofran 4 mg, Route: IVP, Drug form: INJ, ONCE, Priority: STAT, Start date: 05/22/11 23:06:00, Stop date: 05/22/11 23:06:00 IVP No Longer Active 05/23/2011 [facility] morphine Sulfate 2 mg, Route: IVP, ONCE, Priority: STAT, Start date: 05/22/11 23:06:00, Stop date: 05/22/11 23:06:00 IVP No Longer Active 05/23/2011 [facility] Sodium Chloride 0.9% (Bolus) IV 500 mL 500 mL, Rate: 1,000 ml/hr, Infuse over: 0.5 hr, Route: IV, Total Volume: 500, Bolus dose, Priority: STAT, Start date: 05/22/11 21:18:00, Duration: 1 doses or times, Stop date: 05/22/11 21:47:00 IV No Longer Active [facility] 05/23/2011 [facility] Saline Flush 0.9% 5 ml, Route: IVP, Drug Form: INJ, PRN, PRN Line Flush, Start date: 05/22/11 21:18:00, Duration: 24 hr, Stop date: 05/23/11 21:17:00 IVP No Longer Active [facility] 05/23/2011 [facility] Allergies, Adverse Reactions, Alerts Substance Category Reaction Severity Reaction type Status Date Reported Comments Source codeine Assertion Drug allergy Active [facility] [place] Immunizations No Data Provided for This Section Results Order Name Results Value Reference Range Date Interpretation Comments Source BEDSIDE GLUCOSE TESTING Comment1 Notify RN/ 08/27/2011 STARLA [facility] BEDSIDE GLUCOSE TESTING Gluc POC Lif scn 108 65 - 110 08/27/2011 Normal <sup>1</sup>Interpretive Data: Upper Reportable Limit: 200 mg/dL. [facility] BEDSIDE GLUCOSE TESTING Gluc POC Lif scn 124 65 - 110 08/27/2011 [place] <sup>2</sup>Interpretive Data: Upper Reportable Limit: 200 mg/dL. [facility] BEDSIDE GLUCOSE TESTING Comment1 Notify LOUISA/ 08/27/2011 NA [facility] BEDSIDE GLUCOSE TESTING Gluc POC Lif scn 117 65 - 110 08/26/2011 [place] <sup>3</sup>Interpretive Data: Upper Reportable Limit: 200 mg/dL. [facility] BEDSIDE GLUCOSE TESTING Comment1 Notify LOUISA/ 08/26/2011 NA [facility] CHEMISTRY AGAP 12.3 10.0 - 20.0 08/25/2011 Normal [facility] CHEMISTRY Creatinine Lvl 0.6 0.5 - 1.4 08/25/2011 Normal [facility] CHEMISTRY Sodium Lvl 142 135 - 145 08/25/2011 Normal [facility] CHEMISTRY Potassium Lvl 4.3 3.5 - 5.1 08/25/2011 Normal [facility] CHEMISTRY Calcium Lvl 7.6 8.5 - 10.5 08/25/2011 LOW [facility] CHEMISTRY CO2 28 24 - 32 08/25/2011 Normal [facility] CHEMISTRY Chloride Lvl 106 95 - 109 08/25/2011 Normal [facility] CHEMISTRY BUN 5 7 - 22 08/25/2011 LOW [facility] CHEMISTRY Glucose Lvl 131 08/25/2011 NA <sup>4</sup>Interpretive Data: Reference Ranges : 0 - 7 days : 41 - 90 mg/dL 7 days - 150 yrs : 70 - 99 mg/dL (fasting), based on the clinical recommendations of the [place] [employer]. [facility] HEMATOLOGY Hgb 10.9 12.0 - 16.0 08/25/2011 LOW [facility] HEMATOLOGY RBC 3.48 4.20 - 5.40 08/25/2011 LOW [facility] HEMATOLOGY WBC 7.1 3.7 - 10.4 08/25/2011 Normal [facility] HEMATOLOGY RDW 13.9 11.5 - 14.5 08/25/2011 Normal [facility] HEMATOLOGY MCHC 33.5 32.0 - 36.0 08/25/2011 Normal [facility] HEMATOLOGY MCH 31.5 27.0 - 31.0 08/25/2011 HI [facility] HEMATOLOGY MCV 94.0 81.0 - 99.0 08/25/2011 Normal [facility] HEMATOLOGY Hct 32.7 36.0 - 48.0 08/25/2011 LOW [facility] HEMATOLOGY MPV 9.3 7.4 - 10.4 08/25/2011 Normal [facility] HEMATOLOGY Platelet 208 133 - 450 08/25/2011 Normal [facility] HEMATOLOGY Atypical Lymphs 0.0 <=0.0 08/25/2011 Normal [facility] HEMATOLOGY RBC Morph Lynnette l (08/25/2011 04:07:00) 08/25/2011 Normal [facility] HEMATOLOGY Plt Morph Lynnette l (08/25/2011 04:07:00) 08/25/2011 Normal [facility] HEMATOLOGY Tot Cell Ct 100 08/25/2011 NA [facility] HEMATOLOGY Monocytes 5.0 2.0 - 12.0 08/25/2011 Normal [facility] HEMATOLOGY Eosinophils 0.0 0.0 - 4.0 08/25/2011 Normal [facility] HEMATOLOGY Basophils 0.0 0.0 - 1.0 08/25/2011 Normal [facility] HEMATOLOGY Lymphocytes 26.0 20.0 - 40.0 08/25/2011 Normal [facility] HEMATOLOGY Segs-Bands # 4.9 1.5 - 8.1 08/25/2011 Normal [facility] HEMATOLOGY Monocytes # 0.4 0.0 - 0.8 08/25/2011 Normal [facility] HEMATOLOGY Bands 0.0 0.0 - 11.0 08/25/2011 Normal [facility] HEMATOLOGY Lymphocytes # 1.8 1.0 - 5.5 08/25/2011 Normal [facility] HEMATOLOGY Segs 69.0 45.0 - 75.0 08/25/2011 Normal [facility] CHEMISTRY AGAP 13.3 10.0 - 20.0 08/24/2011 Normal [facility] CHEMISTRY Glucose Lvl 133 08/24/2011 NA <sup>5</sup>Interpretive Data: Reference Ranges : 0 - 7 days : 41 - 90 mg/dL 7 days - 150 yrs : 70 - 99 mg/dL (fasting), based on the clinical recommendations of the [place] [employer]. [facility] CHEMISTRY CO2 26 24 - 32 08/24/2011 Normal [facility] CHEMISTRY Calcium Lvl 7.8 8.5 - 10.5 08/24/2011 LOW [facility] CHEMISTRY Potassium Lvl 4.3 3.5 - 5.1 08/24/2011 Normal [facility] CHEMISTRY Chloride Lvl 106 95 - 109 08/24/2011 Normal [facility] CHEMISTRY BUN 8 7 - 22 08/24/2011 Normal [facility] CHEMISTRY Sodium Lvl 141 135 - 145 08/24/2011 Normal [facility] CHEMISTRY Creatinine Lvl 0.7 0.5 - [...] HEMATOLOGY MCH 32.2 27.0 - 31.0 08/24/2011 [facility] HEMATOLOGY Hct 33.1 36.0 - [...] Total 0.3 0.2 - 1.3 08/21/2011 Normal [facility] CHEMISTRY AST 16 0 - 37 08/21/2011 Normal [facility] CHEMISTRY Calcium Lvl 8.4 8.5 - 10.5 08/21/2011 LOW [facility] CHEMISTRY CO2 27 24 - 32 08/21/2011 Normal [facility] CHEMISTRY Potassium Lvl 3.8 3.5 - 5.1 08/21/2011 Normal [facility] CHEMISTRY Chloride Lvl 104 95 - 109 08/21/2011 Normal [facility] CHEMISTRY BUN 13 7 - 22 08/21/2011 Normal [facility] CHEMISTRY Sodium Lvl 141 135 - 145 08/21/2011 Normal [facility] CHEMISTRY Creatinine Lvl 0.6 0.5 - 1.4 08/21/2011 Normal [facility] CHEMISTRY Glucose Lvl 117 08/21/2011 NA <sup>6</sup>Interpretive Data: Reference Ranges : 0 - 7 days : 41 - 90 mg/dL 7 days - 150 yrs : 70 - 99 mg/dL (fasting), based on the clinical recommendations of the [place] [employer]. [facility] CHEMISTRY Globulin 3.7 2.0 - 4.0 08/21/2011 Normal [facility] CHEMISTRY A/G Ratio 1.0 0.7 - 1.6 08/21/2011 Normal [facility] CHEMISTRY B/C Ratio 22 6 - 25 08/21/2011 Normal [facility] CHEMISTRY AGAP 13.8 10.0 - 20.0 08/21/2011 Normal [facility] HEMATOLOGY PTT 30.3 22.9 - 35.8 08/21/2011 Normal <sup>8</sup>Interpretive Data: Heparin T herapeutic Range: 57 - 92 Seconds [facility] HEMATOLOGY PT 11.8 12.0 - 14.7 08/21/2011 LOW [facility] HEMATOLOGY INR 0.86 0.85 - 1.17 08/21/2011 Normal <sup>7</sup>Interpretive Data: RECOMMEND ED RANGES FOR PROTIME INR: 2.0-3.0 for most medical and surgical thromboembolic states. 2.5-3.5 for artificial heart valves and recurrent embolism. INR SHOULD BE USED ONLY FOR PATIENTS ON STABLE ANTICOAGULANT THERAPY. [facility] HEMATOLOGY MPV 9.3 7.4 - 10.4 08/21/2011 Normal [facility] HEMATOLOGY RDW 13.0 11.5 - 14.5 08/21/2011 Normal [facility] HEMATOLOGY Platelet 232 133 - 450 [...] Troponin-I <0.02 0.00 - 0.40 05/23/2011 Normal [facility] CHEMISTRY Lipase Lvl 88.0 73 - 393 05/23/2011 Normal [facility] CHEMISTRY A/G Ratio 1.0 0.7 - 1.6 05/23/2011 Normal [facility] CHEMISTRY AST 25.0 0 - 37 05/23/2011 Normal [facility] CHEMISTRY Bili Total 0.4 0.2 - 1.3 05/23/2011 Normal [facility] CHEMISTRY AGAP 8.9 10.0 - 20.0 05/23/2011 LOW [facility] CHEMISTRY B/C Ratio 18.0 6 - 25 05/23/2011 Normal [facility] CHEMISTRY Globulin 4.2 2.0 - 4.0 05/23/2011 [facility] CHEMISTRY Glucose Lvl 105.0 05/23/2011 NA <sup>1</sup>Interpretive Data: Reference Ranges : 0 - 7 days : 41 - 90 mg/dL 7 days - 150 yrs : 70 - 99 mg/dL (fasting), based on the clinical recommendations of the [place] [employer]. [facility] CHEMISTRY BUN 11.0 7 [...] Total Protein 8.5 6.4 - 8.4 05/23/2011 [facility] CHEMISTRY Alk Phos 75.0 39 [...] HEMATOLOGY Eosinophils 4.3 0.0 - 4.0 05/23/2011 [facility] HEMATOLOGY Segs-Bands # 4.4 1.5 - 8.1 05/23/2011 Normal [facility] HEMATOLOGY Basophils 0.9 0.0 - 1.0 05/23/2011 Normal [facility] HEMATOLOGY Monocytes 6.8 2.0 - 12.0 05/23/2011 Normal [facility] HEMATOLOGY Lymphocytes 24.8 20.0 - 40.0 05/23/2011 Normal [facility] HEMATOLOGY Segs 63.2 45.0 - 75.0 05/23/2011 Normal [facility] HEMATOLOGY Basophils # 0.1 0.0 - 0.2 05/23/2011 Normal [facility] HEMATOLOGY MPV 9.4 7.4 - 10.4 05/23/2011 Normal [facility] HEMATOLOGY Platelet 270.0 133 - 450 05/23/2011 Normal [facility] HEMATOLOGY RDW 13.2 11.5 - 14.5 05/23/2011 Normal [facility] HEMATOLOGY MCH 32.1 27.0 - 31.0 05/23/2011 HI [facility] HEMATOLOGY MCHC 34.5 32.0 - 36.0 05/23/2011 Normal [facility] HEMATOLOGY MCV 92.9 81.0 - 99.0 05/23/2011 Normal [facility] HEMATOLOGY Hgb 13.3 12.0 - 16.0 05/23/2011 Normal [facility] HEMATOLOGY Hct 38.4 36.0 - 48.0 05/23/2011 Normal [facility] HEMATOLOGY RBC 4.14 4.20 - 5.40 05/23/2011 LOW [facility] HEMATOLOGY WBC 6.9 3.7 - 10.4 05/23/2011 Normal [facility] URINALYSIS UA Nitrite Negat dayna (05/22/2011 19:40:00) ?? >Nega tive 05/23/2011 Normal [facility] URINALYSIS UA Bacteria None Seen (05/22/2011 19:40:00) ?? >None Seen 05/23/2011 Normal [facility] URINALYSIS UA Leuk Est Trace *ABN* (05/22/2011 19:40:00) ?? >Nega tive 05/23/2011 ABN [facility] URINALYSIS UA Sq Epi None Seen (05/22/2011 19:40:00) ?? >Few 05/23/2011 Normal [facility] URINALYSIS UA WBC 3-5 / HPF (05/22/2011 19:40:00) ?? >None Seen 05/23/2011 Normal [facility] URINALYSIS UA Ketones Negat dayna *NA* (05/22/2011 19:40:00) ?? >Nega tive 05/23/2011 NA [facility] URINALYSIS UA Bili Negat dayna *NA* (05/22/2011 19:40:00) ?? >Nega tive 05/23/2011 NA [facility] URINALYSIS UA Blood Negat dayna (05/22/2011 19:40:00) ?? >Nega tive 05/23/2011 Normal [facility] URINALYSIS UA Urobilinogen 0.2 0.1 - 1.0 05/23/2011 Normal [facility] URINALYSIS UA RBC None Seen (05/22/2011 19:40:00) ?? >0 - 2 05/23/2011 Normal [facility] URINALYSIS UA Glucose Negat dayna (05/22/2011 19:40:00) ?? >Nega tive 05/23/2011 Normal [facility] URINALYSIS UA pH 6.0 5.0 - 8.0 05/23/2011 Normal [facility] URINALYSIS UA Protein Negat dayna (05/22/2011 19:40:00) ?? >Nega tive 05/23/2011 Normal [facility] URINALYSIS UA Turbidity Clear (05/22/2011 19:40:00) ?? >Clear 05/23/2011 Normal [facility] URINALYSIS UA Spec Grav 1.01 <<=1.030 05/23/2011 Normal [facility] URINALYSIS UA Color Yello w *NA* (05/22/2011 19:40:00) ?? >Pondera ow 05/23/2011 NA [facility] Pathology Reports No Data Provided for [...] 18 08/27/2011 [facility] Heart Rate 76 08/27/2011 [facility] Temperature Oral (F) 98.3 F 08/27/2011 [facility] Heart Rate 82 08/27/2011 [facility] Respitory Rate 18 08/27/2011 [facility] Systolic (mm Hg) 121 08/27/2011 [facility] Diastolic (mm Hg) 69 08/27/2011 [facility] Systolic (mm Hg) 116 08/27/2011 [facility] Respitory Rate 18 08/27/2011 [facility] Diastolic (mm Hg) 74 08/27/2011 [facility] Temperature Oral (F) 98.0 F 08/27/2011 [facility] Heart Rate 84 08/27/2011 [facility] Height 152.40 cm 08/25/2011 [facility] Weight 63.636 08/25/2011 [facility] Weight 63.636 08/21/2011 [facility] Height 154.94 cm 08/21/2011 [facility] Temperature Oral (F) 98.5 F 05/23/2011 [facility] Respitory Rate 18.0 05/23/2011 [facility] Diastolic (mm Hg) 86.0 05/23/2011 [facility] Heart Rate 78.0 05/23/2011 [facility] Systolic (mm Hg) 147.0 05/23/2011 [facility] Temperature Oral (F) 98.3 F 05/23/2011 [facility] Heart Rate 78.0 05/23/2011 [facility] Respitory Rate 18.0 05/23/2011 [facility] Systolic (mm Hg) 141.0 05/23/2011 [facility] Diastolic (mm Hg) 71.0 05/23/2011 [facility] Systolic (mm Hg) 196.0 05/23/2011 [facility] Respitory Rate 16.0 05/23/2011 [facility] Heart Rate 72.0 05/23/2011 [facility] Diastolic (mm Hg) 70.0 05/23/2011 [facility] Temperature Oral (F) 98.0 F 05/23/2011 [facility] Height 152.4 cm 05/23/2011 [facility] Weight 63.636 05/23/2011 [facility] Encounters Location Location Details Encounter Type Encounter Number Reason For Visit Attending Provider ADM Date DC Date Status Source [facility] Emergency [id number] ELISE OVALLES 05/22/2011 05/23/2011 Discharged [facility] Outpatient [id number] ABNORMAL CHEST XR AY KIMBERLY HADAD 08/22/2011 [facility] [id number] INCISIONAL HERNIA [id number] KIMBERLY HADAD 08/23/2011 08/27/2011 Active [facility] Outpatient [id number] Ángel Victorth 02/02/2019 02/03/2019 [facility] [place] [facility] [id number] Ángel [facility] 02/14/2019 02/15/2019 [facility] [place] [facility] [place] [facility] [id number] [facility] 09/01/2019 09/02/2019 [facility] [place] [facility] [id number] ROUTINE SCREENING KERON LYON Active [facility] Procedures No Data Provided for This Section Assessment and Plan No Data Provided for This Section Plan of Care No Data Provided for This Section Social History Social History Date Source Social History TypeResponse 09/02/2019 [facility] [place] Social History TypeResponse 02/03/2019 [facility] Family History No Data Provided for This Section Advance Directives No Data Provided for This Section Functional Status No Data Provided for This Section
--- OUTSIDE RECORDS SUMMARY | 2020-02-24 18:11 | XMS REPORT | Continuity of Care Document ---
Author Author [facility] t Organization [facility] Address [address] [place] [address] Phone Unavailable Care Team Providers Care Dining Room Busser Name Role Phone DO LIGIA WEST DO PCP JAY PETERSEN Attphys Unavailable ZAINAB CHUNG Attphys Unavailable CRIS SMITH MD Attphys Unavailable DAVIDA VALE Attphys Unavailable PETERSEN, SOUHEIL Attphys Unavailable Homero Soares Attphys Montrell HOOPER Attphys Unavailable Patrick BAEZ (NON STAFF) FAVIOLA Attphys Unavailable Patrick ABDULLAHI Attphys Unavailable LIGIA WEST Attphys Unavailable Pramod FUNES Attphys Unavailable Christi RINCON Attphys Unavailable PETERSEN, SOUHEIL Admphys Unavailable Payers Payer Name Policy Type Policy Number Effective Date Expiration Date Reji luevano [facility] [id number] 2019 00:00:00 [facility] [id number] 2019 00:00 :00 [facility] Cdc Review [id number] [facility] [id number] 2017 00:00:00 [facility] Problems Condition Name Condition Details Condition Category Status Onset Date Resolution Date Last Treatment Date Treating Clinician Comments Source DX: M25.512-PAIN IN LEFT SHOULDER DX: M25.512-PAIN IN LEFT SHOULDER Active 01/30/2019 [facility] Active 2019-01-30 00:00:00 2019-02-02 16:34:00 [facility] OSTEOPOROSIS OSTE OPOROSIS Active 03/11/2014 [facility] Active 2014-03-11 00:00:00 2014-04-13 15:26:00 [facility] ROUTINE SCREENING ROUT INE SCREENING Active 02/01/2012 [facility] Active 2012-02-01 00:00:00 2012-03-15 13:58:00 [facility] ABNORMAL CHEST XRAY ABNO RMAL CHEST XRAY Active 08/21/2011 [facility] Active 2011-08-21 00:00:00 2011-08-22 14:12:00 [facility] INCISIONAL HERNIA 553.21/[id number] INCISIONAL HERNIA 553.21/01690 Active 07/28/2011 [facility] Active 07-28 00:00:00 2011-12-25 11:49:00 [facility] INCISIONAL HERNIA INCI SIONAL HERNIA Active 07/28/2011 [facility] Active 2011-07-28 00:00:00 2011-08-11 13:57:00 [facility] ABD PAIN ABD PAIN Active 05/09/2011 [facility] Active 2011-05-09 00:00:00 2011-05-22 22:11:00 [facility] Hypertension Hypertension Problem Active [facility] Hyponatremia Hyponatremia Problem Active [facility] Dizziness Problem Active [facility] Urinary tract infection Problem Active [facility] DM - Diabetes mellitus DM - Diabetes mellitus Active Problem 08/29/2011 [facility] Active 2011-08-29 09:01:4 5 [facility] [place] GERD - Gastro-esophageal reflux disease GERD - Gastro- esophageal reflux disease Active Problem 08/29/2011 [facility] Problem A ctive 2011-08-29 09:01:45 [facility] [place] HTN - Hypertension HTN - Hypertension Active Problem 08/29/2011 [facility] Problem Active 2011-08-29 09:01:45 [facility] Incisional hernia Inci sional hernia Active Problem 08/29/2011 [facility] Problem Active 2011-08-29 09:01:45 [facility] Arthritis (disorder) Arth ritis (disorder) Active Problem 09/04/2019 ADDISON Slade [facility] Problem Active 2019-09-04 00:02:54 [facility] Diabetes mellitus (disorder) D iabetes mellitus (disorder) Active Problem 09/04/2019 ADDISON Slade [facility] Problem Active 2019-09-04 00:02:54 [facility] Gastroesophageal reflux disease (disorder) Gastroesophageal reflux disease (disorder) Active Problem 09/04[facility]2019 [facility] Active 2019-09-04 00:02:54 [facility] Incisional hernia (disorder) I ncisional hernia (disorder) Active Problem 09/04/2019 [facility] Active 2019-09-04 00:02:54 [facility] Arthritis Arth ritis Active Problem 08/29/2011 [facility] Problem Active 2011-08-29 09:01:45 [facility] HERNIA INCI SIONAL HERNIA Active [facility] Diagnosis Active 2011-12-25 11:49:00 [facility] Allergies, Adverse Reactions, Alerts Allergy Name Allergy Type Status Severity Reaction(s) Onset Date Inacti ve Date Treating Clinician Comments Source Lorazepam Allergy to substance Active Moderate 2019-10-31 00:00:00 [facility] codeine DA Active CT 2018-06-28 00:00:00 [facility] codeine DA Active CT 2017-07-17 00:00:00 [facility] codeine codeine Active [facility] Social History Social Habit Start Date Stop Date Quantity Comments Source Sex Assigned At 1935 00:00:00 1935 00:00:00 Female [facility] Medications Ordered Medication Name Filled Medication Name Start Date Stop Da te Current Medication? Ordering Clinician Indication Dosage Frequency Signature (SIG) Comments Components Source Tramadol Hcl (Ultram) 50 Mg TABLET Tramadol Hcl (Ultram) 50 Mg TABLET 2018-08-11 18:07:00 2019-11-18 00:00:00 No 50 Every 6 Hours as needed for Pain [facility] Cephalexin Monohydrate (Keflex) 500 Mg CAPSULE Cephale darcy Monohydrate (Keflex) 500 Mg CAPSULE 2018-08-11 18:06:00 2018-08-29 00:00:00 No 5 00 Every 6 Hours [facility] Restoril 2011-08-26 18:04:00 No Larry Boyer Gelber 15 mg, 1 cap, Route: PO, Drug form: CAP, Bedtime, PRN Sleep, Start date: 08/26/11 12:04:00, Duration: 30 day, Stop date: 09/25/11 12:03:00 [facility] rafa Obrien Crestor 2011-08-26 03:00:00 No Christo R Hadad 20 mg, 2 tab, Route: PO, Drug form: TAB, Bedtime, Start date: 08/25/11 21:00:00, Duration: 30 day, Stop date: 09/23/11 21:00:00 [facility] tramadol 50 mg oral tablet 2011-08-25 23:31:00 No Aniba l R Hadad 50 mg, 1 tab, Route: PO, Drug form: TAB, Q4H, PRN Pain, Start date: 08/25/11 17:31:00, Duration: 30 day, Stop date: 09/24/11 17:30:00 [facility] Tylenol 2011-08-25 23:31:00 No Christo R Hadad 325 mg, 1 tab, Route: PO, Drug form: TAB, Q4H, PRN Pain, Start date: 08/25/11 17:31:00, Duration: 30 day, Stop date: 09/24/11 [facility]:30[facility]acet oral [facility] 2011-08-25 17:05:00 No Christo R Goode dad 1 tab, Route: PO, Drug Form: TAB, Q4H, PRN Pain, Start date: 08/25/11 11:05:00, Duration: 30 day, Stop date: 09/24/11 11:04:00 [facility] Milk of Magnesia 2011-08-25 17:04:00 No Christo R Hadad 60 ml, Route: PO, Drug Form: SUSP, ONCE, Start date: 08/25/11 11:04:00, Stop date: 08/25/11 11:04:00 [facility] Diovan 2011-08-25 15:00:00 No Christo R Hadad 80 mg, 1 tab, Route: PO, Drug form: TAB, Daily, Start date: 08/25/11 9:00:00, Duration: 30 day, Stop date: 09/23/11 9:00:00 [facility] metFORmin 500 mg oral tablet 2011-08-25 14:00:00 No Ani bal R Hadad 500 mg, 1 tab, Route: PO, Drug form: TAB, Breakfast, Start date: 08/25/11 8:00:00, Duration: 30 day, Stop date: 09/23/11 8:00:00 [facility] acetaminophen-hydrocodone 325 mg-5 mg oral tablet 19:06:00 No Christo R Hadad 1 tab, Route: PO , Drug Form: TAB, Q4H, PRN Pain, Start date: 08/24/11 13:06:00, Duration: 30 day, Stop date: 09/23/11 13:05:00 [facility] Dilaudid 2011-08-24 19:06:00 No Christo R Hadad 0.5 mg, 0.25 mL, Route: IVP, Drug form: INJ, Q3H, PRN Severe Pain, Start date: 08/24/11 13:06:00, Duration: 30 day, Stop date: 09/23/11 13:05:00 [facility] NovoLog FlexPen 2011-08-24 19:04:00 No Christo R Hadad 18 unit, 0.18 mL, Route: SUB-Q, Drug form: SOLN, Q6H, PRN Blood Glucose Results, Start date: 08/24/11 13:04:00, Duration: 30 day, Stop date: 09/23/11 13:03:00 [facility] glucagon 2011-08-24 19:04:00 No Christo R Hadad 1 mg, Route: IM, Drug form: PDR/INJ, PRN, PRN Blood Glucose Results, Start date: 08/24/11 13:04:00, Duration: 30 day, Stop date: 09/23/11 14:03:00 [facility] Dextrose 50% in Water IV 2011-08-24 19:04:00 No Hcristo R Hadad 50 mL, Route: IVP, PRN, Blood Glucose Results, Start date: 08/24/11 13:04:00, Duration: 30 day, Stop date: 09/23/11 14:03:00 Veronica Obrien NovoLog FlexPen 2011-08-24 19:03:00 No Christo R Hadad 9 unit, 0.09 mL, Route: SUB-Q, Drug form: SOLN, Q6H, PRN Blood Glucose Results, Start date: 08/24/11 13:03:00, Duration: 30 day, Stop date: 09/23/11 13:02:00 [facility] Crestor 20 mg oral tablet 2011-08-24 17:53:48 Yes 20 mg, 1 tab, Bedtime, Substitution Allowed [facility] metFORmin 500 mg oral tablet 2011-08-24 17:52:53 Yes 500 mg, 1 tab, PO, Daily, Substitution Allowed, with breakfastwith breakfast [facility] Unasyn 2011-08-24 00:00:00 No Christo R Hadad 3 gm, 1 ea, Route: IVPB, ABXQ6H, Start date: 08/23/11 18:00:00, Duration: 24 hr, Stop date: 08/24/11 12:00:00 [facility] Protonix 2011-08-24 00:00:00 No Christo R Hadad 40 mg, Route: IVP, Drug form: INJ, Before Dinner, Start date: 08/23/11 18:00:00, Duration: 30 day, Stop date: 09/22/11 16:30:00 [facility] No Lovenox 2011-08-23 23:30:00 No Christo R Hadad No Lovenox, 1, Drug form: MISC, Route: MISC, Continuous, 08/23/11 17:30:00, Duration: 30 day, Stop date: 09/22/11 18:29:00 [facility] Dilaudid 2011-08-23 23:06:00 No Christo R Hadad 1.5 mg, 0.75 mL, Route: IVP, Drug form: INJ, Q3H, PRN Pain, Start date: 08/23/11 17:06:00, Duration: 30 day, Stop date: 09/22/11 17:05:00 Aristeo Hodo Dextrose 5% with 0.45% NaCl IV 1,000 mL 2011-08-23 23:04:0 0 No Christo R Hadad 1,000 mL, Rate: 120 ml/hr, Infuse over: 8.3 hr, Route: IV, Total Volume: 1,000, Start date: 08/23/11 17:04:00, Duration: 30 day, Stop date: 09/22/11 17:03:00 [facility] Diovan 2011-08-23 16:32:59 Yes 80 mg, PO, Daily, Substitution Allowed [facility] lidocaine 1% 2011-08-23 16:00:00 No Christo R Hadad 0.5 mL, Route: SUB- Q, Drug Form: INJ, ONCALL, Start date: 08/23/11 10:00:00, Duration: 1 doses or times [facility] Lactated Ringers Injection IV 1,000 mL 2011-08-23 15:44:00 No Salvador Delgadoen 1,000 mL, Rate: 25 ml/hr, Infuse over: 40 hr, Route: IV, Total Volume: 1,000, Start date: 08/23/11 9:44:00, Duration: 30 day, Stop date: 09/22/11 9:43:00 [facility] [place] [facility] Reglan 10 mg oral tablet 2011-05-23 05:47:07 Yes Samson Kutsen 10 mg, 1 tab, PO, QID, PRN, 28 tab, nausea, Substitution Allowed, TAB [facility] Pepto-Bismol 262 mg/15 mL oral suspension 2011-05-23 05:46 :38 Yes Samson Kutsen 262 mg, 15 ml, P O, QID, PRN, 120 ml, for dyspepsia, Substitution Allowed, SUSP [facility] Zofran 2011-05-23 05:06:00 No Samson Kutsen 4 mg, Route: IVP, Drug form: INJ, ONCE, Priority: STAT, Start date: 05/22/11 23:06:00, Stop date: 05/22/11 23:06:00 [facility] morphine Sulfate 2011-05-23 05:06:00 No Samson Kutsen 2 mg, Route: IVP, ONCE, Priority: STAT, Start date: 05/22/11 23:06:00, Stop date: 05/22/11 23:06:00 [facility] Sodium Chloride 0.9% (Bolus) IV 500 mL 2011-05-23 03:18:00 No Samson Enriquezen 500 mL, Rate: 1, 000 ml/hr, Infuse over: 0.5 hr, Route: IV, Total Volume: 500, Bolus dose, Priority: STAT, Start date: 05/22/11 21:18:00, Duration: 1 doses or times, Stop date: 05/22/11 21:47:00 [facility] Saline Flush 0.9% 2011-05-23 03:18:00 No Samson Enriquezen 5 ml, Route: IVP, Drug Form: INJ, PRN, PRN Line Flush, Start date: 05/22/11 21:18:00, Duration: 24 hr, Stop date: 05/23/11 21:17:00 [facility] Cholecalciferol (Vitamin D3) (Vitamin D3) 10 Mcg CAPSU LE Cholecalciferol (Vitamin D3) (Vitamin D3) 10 Mcg CAPSULE Yes Daily [facility] Linagliptin (Tradjenta) 5 Mg TABLET Linagliptin (Tradjenta) 5 Mg TABL ET Yes 5 Daily [facility] Lisinopril (Prinivil) 20 Mg TABLET Lisinopril (Prinivil) 20 Mg TABLET Yes 20 Daily [facility] Cyanocobalamin (Vitamin B-12) (B-12) 1,000 Mcg TABLET. ER Cyanocobalamin (Vitamin B-12) (B-12) 1,000 Mcg TABLET.ER 2019-11-18 00:00:00 No 1 Daily [facility] D3 D3 2019-11-18 00:00:00 No 25 [facility] Metoprolol Tartrate Metoprolol Tartrate 2019-11-18 00:00:00 No 25 Twice A Day [facility] Losartan Potassium Losartan Potassium 2019-02-10 00:00:00 No 100 Daily [facility] Metformin Hcl Metformin Hcl 2019-02-10 00:00:00 No 500 Daily [facility] Omeprazole Omeprazole 2019-02-10 00:00:00 No 20 Carmen ly [facility] Promethazine Hcl (Phenergan) 25 Mg/1 Ml AMPUL Prometha zine Hcl (Phenergan) 25 Mg/1 Ml AMPUL 2019-02-10 00:00:00 No 25 As Needed as needed for Nausea [facility] Cefuroxime Axetil (Cefuroxime) 250 Mg TABLET Cefuroxim e Axetil (Cefuroxime) 250 Mg TABLET 2018-08-29 00:00:00 No 250 Every 12 Hours [facility] Losartan Potassium Losartan Potassium 2018-08-29 00:00:00 No 100 Daily [facility] Hydrochlorothiazide Hydrochlorothiazide 2018-07-21 00:00:00 No 12.5 Daily@0600 [facility] Linagliptin (Tradjenta) 5 Mg TABLET Linagliptin (Tradjenta) 5 Mg TABLET 2018-07-21 00:00:00 No 5 Daily [facility] Linzess Linzess 2018-07-21 00:00:00 No 145 Daily [facility] Acetaminophen Acetaminophen 2018-07-19 00:00:00 No 325 Daily as needed for Pain [facility] Tramadol Hcl (Ultram 50MG*) 50 Mg TAB Tramadol Hcl (Ultram 50MG* ) 50 Mg TAB 2018-07-19 00:00:00 No 37.5 As Needed for Pain [facility] Metformin Hcl Metformin Hcl 2018-07-17 00:00:00 No 500 Twice A Day [facility] Omeprazole Omeprazole 2018-07-17 00:00:00 No 1 Carmen ly [facility] Valsartan (Diovan) 80 Mg TAB Valsartan (Diovan) 80 Mg TAB 2018-07-17 00:00:00 No 80 Daily [facility] Vital Signs Vital Name Observation Time Observation Value Comments Source Weight 2019-12-27 19:48:00 129 [lb_av] [facility] BMI (Body Mass Index) 2019-12-27 19:48:00 26.1 kg/m2 [facility] Weight 2019-12-15 07:13:00 129 [lb_av] [facility] BMI (Body Mass Index) 2019-12-15 07:13:00 26.1 kg/m2 [facility] Body Temperature 2019-11-24 12:59:00 97.6 [degF] [facility] Temperature Oral (F) 2011-08-27 18:00:00 98.3 F [facility] Diastolic (mm Hg) 2011-08-27 18:00:00 [facility] Systolic (mm Hg) 2011-08-27 18:00:00 [facility] [place] Respitory Rate 2011-08-27 18:00:00 [facility] Heart Rate 2011-08-27 18:00:00 [facility] [place] Temperature Oral (F) 2011-08-27 14:00:00 98.3 F [facility] Heart Rate 2011-08-27 14:00:00 [facility] [place] Respitory Rate 2011-08-27 14:00:00 [facility] [place] Systolic (mm Hg) 2011-08-27 14:00:00 [facility] Diastolic (mm Hg) 2011-08-27 14:00:00 [facility] [place] Systolic (mm Hg) 2011-08-27 10:00:00 Jacob [facility] [place] Respitory Rate 2011-08-27 10:00:00 [facility] Diastolic (mm Hg) 2011-08-27 10:00:00 [facility] [place] Temperature Oral (F) 2011-08-27 10:00:00 98.0 F [facility] Heart Rate 2011-08-27 10:00:00 [facility] [place] Height 2011-08-25 01:24:00 152.40 cm [facility] Weight 2011-08-25 01:24:00 [facility] [place] Weight 2011-08-21 17:08:00 [facility] Height 2011-08-21 17:08:00 154.94 cm [facility] Temperature Oral (F) 2011-05-23 06:12:00 98.5 F [facility] [place] Respitory Rate 2011-05-23 06:12:00 [facility] Diastolic (mm Hg) 2011-05-23 06:12:00 [facility] Heart Rate 2011-05-23 06:12:00 [facility] [place] Systolic (mm Hg) 2011-05-23 06:12:00 Jacob rial [place] Temperature Oral (F) 2011-05-23 06:02:00 98.3 F [facility] [place] Heart Rate 2011-05-23 06:02:00 [facility] Respitory Rate 2011-05-23 06:02:00 [facility] [place] Systolic (mm Hg) 2011-05-23 06:02:00 Jacob [facility] [place] Diastolic (mm Hg) 2011-05-23 06:02:00 [facility] Systolic (mm Hg) 2011-05-23 04:27:00 Jacob [facility] [place] Respitory Rate 2011-05-23 04:27:00 [facility] [place] Heart Rate 2011-05-23 04:27:00 [facility] Diastolic (mm Hg) 2011-05-23 04:27:00 Mem [facility] [place] Temperature Oral (F) 2011-05-23 04:23:00 98.0 F [facility] [place] Height 2011-05-23 01:11:00 152.4 cm [facility] Weight 2011-05-23 01:11:00 [facility] [place] Procedures Procedure Date / Time Performed Performing Clinician [facility] e Computed tomography of brain without radiopaque contrast 2019-12 00:00:00 [facility] Computed tomography of chest without contrast 2019-12-27 00:00:0 0 [facility] Computed tomography of brain without radiopaque contrast 2019-12 00:00:00 [facility] EMERGENCY DEPT VISIT 2019-12-15 00:00:00 [facility] EGD BIOPSY SINGLE/MULTIPLE 2019-11-24 00:00:00 Bev REDMOND [facility] Computed tomography of abdomen and pelvis with contrast 2019 00:00:00 ZAINAB CHUNG [facility] X-ray of chest, two views 2019-09-28 00:00:00 ZAINAB CHUNG [facility] Computed tomography of abdomen and pelvis with contrast 2018 00:00:00 FLORENCE HOOPER [facility] Plan of Care Planned Activity Planned Date Details Comments Source Instructions Dizziness [facility] Instructions Hypertension [facility] Encounters Start Date/Time End Date/Time Encounter Type Admission Type Attendi RUST Care Department Encounter ID Source 2019-12-27 19:29:00 2019-12-28 01:09:00 Departed Emergency Room 1 CHUNG ZAINAB [facility] [id number] [facility] 2019-12-15 07:07:00 2019-12-15 09:41:00 Departed Emergency Room 1 CRIS SMITH MD [facility] [id number] [facility] 2019-11-24 08:07:00 2019-11-24 08:07:00 Registered Surgical Day Care [facility] [id number] [facility] 2019-10-31 15:23:00 2019-10-31 19:07:00 Departed Emergency Room 1 DAVIDA VALE [facility] [id number] [facility] 2019-09-28 08:19:00 2019-10-01 12:54:00 Discharged Inpatient 1 HAYLEY PETERSEN [facility] [id number] [facility] 2019-09-01 16:04:00 2019-09-01 23:59:00 Outpatient Ángel Soares [facility] [id number] 2019-04-28 14:18:00 2019-04-28 18:43:00 Departed Emergency Room 1 FLORENCE HOOPER [facility] [id number] [facility] 2019-03-21 12:22:00 2019-03-21 12:22:00 Registered Clinic 3 FAVIOLA BAEZ [facility] [id number] [facility] 2019-02-14 08:53:00 2019-02-14 23:59:00 Outpatient Ángel Soares [facility] [id number] 2019-02-10 16:23:00 2019-02-10 20:20:00 Departed Emergency Room 1 EMILY ABDULLAHI [facility] [id number] [facility] 2019-02-02 16:24:00 2019-02-02 23:59:00 Outpatient Fariba Soares [facility] [id number] 2019-02-02 16:24:00 2019-02-02 16:24:00 Outpatient [id number] 2018-08-29 06:34:00 2018-08-29 06:34:00 Registered Surgical Day Care [facility] [id number] [facility] 2018-08-11 14:48:00 2018-08-11 19:37:00 Departed Emergency Room 1 DAVIDA ENAMORADO [facility] [id number] [facility] 2018-08-05 13:08:00 2018-08-05 13:08:00 Registered Clinic 3 LIGIA CERVANTES [facility] [id number] [facility] 2018-07-19 21:32:00 2018-07-21 14:23:00 Discharged Inpatient (obs) 1 STELLA FUNES [facility] [id number] [facility] 2018-07-17 22:57:00 2018-07-18 01:52:00 Departed Emergency Room [facility] [id number] [facility] Patients [facility] 2018-07-16 12:30:00 2018-07-16 12:30:00 Registered Clinic 3 LIGIA CERVANTES [facility] [id number] [facility]. [facility] Patients [facility] 2017-11-28 11:45:00 2017-11-28 11:45:00 Registered Clinic 3 JILLIAN RINCON [facility] [id number] [facility] Results Test Description Test Time Test Comments Results Result Comments Source SMALL BOWEL SERIES 2020-01-27 13:26:00 [facility] [address] [place], [place] [address] Patient Name: SHARLENE MOORE MR #: [id number] : 1935 Age/Sex: 84/F Req #: [id number] Adm Physician: Ordered by: JAY PETERSEN MD Report #: [id number] Location: DX Room/Bed: Procedure: [id number] DX/SMALL BOWEL SERIES Exam Date: 01/27/20 Exam Time: 837 REPORT STATUS: Signed Small bowel follow-through Comparison: None Clinical History: Back tarry stools. Abdominal pain since . Total Patient Fluoro Time: 2.1 minutes Radiation dose: 10.0 mGy Kerma-area. Total number of images submitted: 8. Bellperson radiographs were obtained. After oral ingestion of barium overhead x-ray images were obtained over the abdomen periodically until the barium across the ileocecal valve. Spot compression views of the areas of interest were obtained through photospot images additionally. Report: Bellperson: Nonobstructive bowel gas pattern. Copious amounts of fecal matter. No calculi. No pneumatosis. No air over the liver. 5 lumbar type vertebrae. Degenerative changes of the bones. No aggressive bony lesions seen. Lower chest unremarkable. There is no evidence of intrinsic or extrinsic mass effect or mass involving the stomach or duodenum. The colon was visualized in 2 hours. The terminal ileum is not well-visualized. There is no evidence of bowel obstruction. The small bowel loops are non- dilated and the small bowel folds are none thickened. Incidentally noted are two Small bowel diverticula on the mesenteric border. Impression: Unremarkable small bowel follow through. Signed by: Elias Ferrer MD on 01/27/2020 1:34 PM Dictated By: ELIAS FERRER MD [id number] Transcribed By: JOHN on 01/27/201333 COPY TO: JAY PETERSEN MD CT CHEST WO 2019-12-27 23:38:00 [place] [address] Patient Name: SHARLENE MOORE MR #: [id number] : 1935 Age/Sex: 84/F Req #: [id number] Adm Physician: Ordered by: ZAINAB CHUNG DO Report #: [id number] Location: ER Room/Bed: Procedure: [id number] CT/CT CHEST WO Exam Date: 12/27/19 Exam Time: 2154 REPORT STATUS: Signed EXAM: CT Chest WITHOUT contrast INDICATION: Weakness, elevated blood pressure COMPARISON: None TECHNIQUE: Chest was scanned utilizing a multidetector helical scanner from the lung apex through the level of the adrenal glands without administration of IV contrast. Absence of intravenous contrast decreases sensitivity for detection of lymphadenopathy and vascular pathology. Coronal and sagittal reformations were obtained. Routine protocol was performed. IV CONTRAST: None COMPLICATIONS: None RADIATION DOSE: Total DLP: 397 mGy*cm Estimated effective dose: (DLP x 0.014 x size factor) mSv CTDIvol has been reviewed. It is below the limits set by the Radiation Protocol Committee (RPC). Dose modulation, iterative reconstruction, and/or weight based adjustment of the mA/kV was utilized to reduce the radiation dose to as low as reasonably achievable. FINDINGS: LINES/ TUBES: None. LUNGS AND AIRWAYS: The lungs are unremarkable. Airways are normal. PLEURA: The pleural spaces are clear. HEART AND MEDIASTINUM: Multiple thyroid nodules, largest measures 1.5 cm. No mediastinal, hilar or axillary lymphadenopathy. The heart is normal in size. There is no pericardial effusion. Calcifications of the aorta and major branches including the coronary arteries. UPPER ABDOMEN: Pancreatic atrophy. BONES: The visualized bony thorax is within normal limits. SOFT TISSUES: Unremarkable. IMPRESSION: Triple vessel coronary artery calcific atherosclerosis. Multiple thyroid nodules, largest measures 1.5 cm. Recommend thyroid ultrasound for further evaluation. Signed by: Adrian Murdock DO on 12/27/2019 11:42 PM Dictated By: ADRIAN MURDOCK DO 41 Transcribed By: JOHN on 12/27/192341 COPY TO: ZAINAB CHUNG DO CT BRAIN WO 2019-12-27 22:35:00 [place] [address] Patient Name: SHARLENE MOORE MR #: [id number] : 1935 Age/Sex: 84/F Req #: [id number] Adm Physician: Ordered by: ZAINAB CHUNG DO Report #: [id number] Location: ER Room/Bed: Procedure: [id number] CT/CT BRAIN WO Exam Date: 12/27/19 Exam Time: 2154 REPORT STATUS: Signed CT BRAIN WO HISTORY: Weakness, high blood pressure COMPARISON: Head CT 12/15/2019 Technique: Noncontrast axial scans were obtained from skull base to the vertex. Coronal and sagittal reconstructions obtained from the axial data. One or more of the following dose reduction techniques were used: Automated exposure control, adjustment of the mA and/or kV according to patient size, and/or utilization of iterative reconstruction technique. DISCUSSION: Scalp/Skull: Unremarkable. Brain sulci: Mildly prominent. Ventricles: Compensatory dilatation. Extra- axial spaces: No masses or fluid collections. Carotid siphon calcifications are present. Parenchyma: Mild bilateral deep white matter hypodensity is likely chronic microvascular ischemic change. Otherwise, no masses, hemorrhage, or large vascular territory acute infarct. Dural sinuses: No abnormal densities. Sellar/Suprasellar region: Intact. Skull base: Intact. 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 IMPRESSION: 1. No acute intracranial abnormalities. 2. Mild supratentorial chronic microvascular ischemic change. Mild generalized cerebral volume loss. Signed by: Dr. Rishi Shukla M.D. on 12/27/2019 10:40 PM Dictated By: RISHI SHUKLA MD 39 Transcribed By: JOHN on 12/27/192239 COPY TO: ZAINAB CHUNG DO Blood leukocytes automated count (number/volume) 2019-12-27 20:02:00 Test Item White Blood Count (test code = 6690-2) 7.05 4.8-10.8 [facility] automated count (number/volume)2019-12-27 20:02:00* Test Item Value Reference Range Interpretation Comments Red Blood Count (test code = 789-8) 3.88 3.6-5.1 [facility]Blood hemoglobin measurement (moles/volume)2019-12-27 20:02:00* Test Item Value Reference Range Interpretation Comments Hemoglobin (test code = 34268-8) 11.8 12.0-16.0 [facility] HospitalAutomated blood hematocrit (volume fraction)2019-12-27 20:02:00* Test Item Value Reference Range Interpretation Comments Hematocrit (test code = 4544-3) 36.4 34.2-44.1 [facility] HospitalAutomated erythrocyte mean corpuscular dttbgg6818-24-04 20:02:00* Test Item Value Reference Range Interpretation Comments Mean Corpuscular Volume (test code = 787-2) 93.8 81-99 [facility] HospitalAutomated erythrocyte mean corpuscular hemoglobin (mass per erythrocyte)2019-12-27 20:02:00* Test Item Value Reference Range Interpretation Comments Mean Corpuscular Hemoglobin (test code = 785-6) 30.4 28-32 [facility] HospitalAutomated erythrocyte mean corpuscular hemoglobin concentration measurement (mass/volume)2019-12-27 20:02:00* Test Item Value Reference Range Interpretation Comments Mean Corpuscular Hemoglobin Concent (test code = 786-4) 32.4 31-35 [facility] HospitalRDW PfzVu-Anp5512-22-20 20:02:00* Test Item Value Reference Range Interpretation Comments Red Cell Distribution Width (test code = 23264-7) 13.3 11.7 -14.4 [facility] HospitalAutomated blood platelet count (count/volume)2019-12-27 20:02:00* Test Item Value Reference Range Interpretation Comments Platelet Count (test code = 777-3) 321 140-360 [facility] HospitalAutomated blood segmented neutrophil count as percentage of total utjplovtdr9579-95-94 20:02:00* Test Item Value Reference Range Interpretation Comments Neutrophils (%) (Auto) (test code = 24225-3) 80.2 38.7-80.0 [facility] HospitalAutomated blood lymphocyte count as percentage ot total ayoyyqupya8939-16-58 20:02:00* Test Item Value Reference Range Interpretation Comments Lymphocytes (%) (Auto) (test code = 736-9) 12.2 18.0-39.1 [facility] HospitalAutomated blood monocyte count as percentage of total ldrhtykuqe9947-83-43 20:02:00* Test Item Value Reference Range Interpretation Comments Monocytes (%) (Auto) (test code = 5905-5) 6.1 4.4-11.3 [facility] HospitalAutomated blood eosinophil count as percentage of total zgjbznkacx5488-17-56 20:02:00* Test Item Value Reference Range Interpretation Comments Eosinophils (%) (Auto) (test code = 713-8) 0.6 0.0-6.0 [facility] HospitalAutomated blood basophil count as percentage of total xzvkhuqgxm9946-26-63 20:02:00* Test Item Value Reference Range Interpretation Comments Basophils (%) (Auto) (test code = 706-2) 0.6 0.0-1.0 [facility] HospitalFluoroscopic procedure less than one hour rkwukqlb9077-42-67 20:02:00* Test Item Value Reference Range Interpretation Comments IM GRANULOCYTES % (test code = IM GRANULOCYTES %) 0.3 0.0- 1.0 [facility] HospitalAutomated blood neutrophil count 2019-12-27 20:02:00* Test Item Value Reference Range Interpretation Comments Neutrophils # (Auto) (test code = 751-8) 5.7 2.1-6.9 [facility] HospitalBlood lymphocytes count (number/volume) 2019-12-27 20:02:00* Test Item Value Reference Range Interpretation Comments Lymphocytes # (Auto) (test code = 22582-7) 0.9 1.0-3.2 [facility] HospitalBlood monocytes automated count (number/volume)2019-12-27 20:02:00* Test Item Value Reference Range Interpretation Comments Monocytes # (Auto) (test code = 742-7) 0.4 0.2-0.8 [facility] HospitalAutomated blood eosinophil count 2019-12-27 20:02:00* Test Item Value Reference Range Interpretation Comments Eosinophils # (Auto) (test code = 711-2) 0.0 0.0-0.4 [facility] HospitalAutomated blood basophil count (count/volume)2019-12-27 20:02:00* Test Item Value Reference Range Interpretation Comments Basophils # (Auto) (test code = 704-7) 0.0 0.0-0.1 [facility] HospitalFluoroscopic procedure less than one hour wdzzlbuw9837-51-08 20:02:00* Test Item Value Reference Range Interpretation Comments Absolute Immature Granulocyte (auto (lionel t code = Absolute Immature Granulocyte (auto) 0.02 0-0.1 [facility] HospitalUrine color ajsrouchnshgl6547-53-70 20:02:00* Test Item Value Reference Range Interpretation Comments Urine Color (test code = 5778-6) YELLOW YELLOW [facility] HospitalUrine ovdttaa3387-64-27 20:02:00* Test Item Value Reference Range Interpretation Comments Urine Clarity (test code = 29673-4) CLEAR CLEAR [facility]pecific gravity of Urine by Test strip 2019-12-27 20:02:00* Test Item Value Reference Range Interpretation Comments Urine Specific [place] (test code = 5811-5) 1.010 1.010-1.02 5 [facility] HospitalUrine pH measurement by automated test kdbxs8608-00-53 20:02:00* Test Item Value Reference Range Interpretation Comments Urine pH (test code = 89699-9) 6 5-7 [facility] HospitalUrine leukocyte esterase detection by nlrggjqk5777-00-74 20:02:00* Test Item Value Reference Range Interpretation Comments Urine Leukocyte Esterase (test code = 5799-2) SMALL NEGATIVE [facility] HospitalUrine nitrite rhnonqjar7940-23-03 20:02:00* Test Item Value Reference Range Interpretation Comments Urine Nitrite (test code = 15093-6) NEGATIVE NEGATIVE [facility] HospitalUrine protein measurement by test strip (mass/volume)2019-12-27 20:02:00* Test Item Value Reference Range Interpretation Comments Urine Protein (test code = 5804-0) NEGATIVE NEGATIVE [facility] HospitalUrine glucose rbsvjncrm4747-75-59 20:02:00* Test Item Value Reference Range Interpretation Comments Urine Glucose (UA) (test code = 2349-9) NEGATIVE NEGATIVE [facility] HospitalUrine ketones detection by automated test bdqtj8279-94-94 20:02:00* Test Item Value Reference Range Interpretation Comments Urine Ketones (test code = 27534-1) NEGATIVE NEGATIVE [facility] HospitalUrine urobilinogen measurement by test strip (mass/volume)2019-12-27 20:02:00* Test Item Value Reference Range Interpretation Comments Urine Urobilinogen (test code = 91402-6) 0.2 0.2-1 [facility] HospitalUrine total bilirubin measurement (mass/volume)2019-12-27 20:02:00* Test Item Value Reference Range Interpretation Comments Urine Bilirubin (test code = 1978-6) NEGATIVE NEGATIVE [facility] HospitalUrine erythrocytes vwzjlmqld8382-78-14 20:02:00* Test Item Value Reference Range Interpretation Comments Urine Blood (test code = 72820-2) TRACE NEGATIVE [facility] HospitalAutomated urine sediment leukocyte count by microscopy (number/high power field)2019-12-27 20:02:00* Test Item Value Reference Range Interpretation Comments Urine WBC (test code = 5821-4) 6-10 0-5 [facility] HospitalErythrocytes detection in urine sediment by light lxstdolmnw6286-48-01 20:02:00* Test Item Value Reference Range Interpretation Comments Urine RBC (test code = 89038-0) 6-10 0-5 [facility] HospitalBacteria detection in urine sediment by light lgyvnjjkaw1245-00-06 20:02:00* Test Item Value Reference Range Interpretation Comments Urine Bacteria (test code = 58782-9) RARE NONE [facility] HospitalEpithelial cells detection in urine sediment by light krmfbacyrg2303-07-78 20:02:00* Test Item Value Reference Range Interpretation Comments Urine Epithelial Cells (test code = 21889-7) FEW NONE [facility]kinerum or plasma sodium measurement (moles/volume)2019-12-27 20:02:00* Test Item Value Reference Range Interpretation Comments Sodium Level (test code = 2951-2) 134 136-145 [facility]kinerum or plasma potassium measurement (moles/volume)2019-12-27 20:02:00* Test Item Value Reference Range Interpretation Comments Potassium Level (test code = 2823-3) 4.5 3.5-5.1 [facility]kinerum or plasma chloride measurement (moles/volume)2019-12-27 20:02:00* Test Item Value Reference Range Interpretation Comments Chloride Level (test code = 2075-0) 103 98-107 [facility]kinerum or plasma carbon dioxide, total measurement (moles/volume)2019-12-27 20:02:00* Test Item Value Reference Range Interpretation Comments Carbon Dioxide Level (test code = 2028-9) 25 22-29 [facility]kinerum or plasma anion zbz5039-74-70 20:02:00* Test Item Value Reference Range Interpretation Comments Anion Gap (test code = 28342-5) 10.5 8-16 [facility]kinerum or plasma urea nitrogen measurement (mass/volume)2019-12-27 20:02:00* Test Item Value Reference Range Interpretation Comments Blood Urea Nitrogen (test code = 3094-0) 14 7-26 [facility]kinerum or plasma creatinine measurement (mass/volume)2019-12-27 20:02:00* Test Item Value Reference Range Interpretation Comments Creatinine (test code = 2160-0) 0.79 0.57-1.11 [facility]kinerum or plasma urea nitrogen/creatinine mass mlivp2220-86-94 20:02:00* Test Item Value Reference Range Interpretation Comments BUN/Creatinine Ratio (test code = 3097-3) 18 6-25 [facility] HospitalEstimated glomerular filtration rate (GFR) wrjqncbyqzsed5940-43-81 20:02:00* Test Item Value Reference Range Interpretation Comments Estimat Glomerular Filtration Rate (test code = 433507728) > 60 >60 Ranges were taken from the National Kidney Disease Education Program and the Bia count includes the [facility] Kidney Foundation literature.Reference ranges:60 or greater: Qudxcc23-13 ( for 3 consecutive months): Chronic kidney disease 15 or less: Kidney failureMemorial Hermann Cypress HospitalGlucose pgkdnvnjvpq2183-67-96 20:02:00* Test Item Value Reference Range Interpretation Comments Glucose Level (test code = BXW5420) 100 74-118 [facility]kinerum or plasma calcium measurement (mass/volume)2019-12-27 20:02:00* Test Item Value Reference Range Interpretation Comments Calcium Level (test code = 20161-9) 9.7 8.4-10.2 [facility]kinerum or plasma total bilirubin measurement (mass/volume)2019-12-27 20:02:00* Test Item Value Reference Range Interpretation Comments Total Bilirubin (test code = 1975-2) 0.2 0.2-1.2 [facility] HospitalFluoroscopic procedure less than one hour hjfqpiaj8077-22-37 20:02:00* Test Item Value Reference Range Interpretation Comments Aspartate Amino Transf (AST/SGOT) (test code = Aspartate Amino Transf (AST/SGOT)) 23 5-34 [facility]kinerum or plasma alanine aminotransferase measurement (enzymatic activity/volume)2019-12-27 20:02:00* Test Item Value Reference Range Interpretation Comments Alanine Aminotransferase (ALT/SGPT) (test code = 1742-6) 20 0-55 [facility]kinerum or plasma protein measurement (mass/volume)2019-12-27 20:02:00* Test Item Value Reference Range Interpretation Comments Total Protein (test code = 2885-2) 7.6 6.5-8.1 [facility]kinerum or plasma albumin measurement (mass/volume)2019-12-27 20:02:00* Test Item Value Reference Range Interpretation Comments Albumin (test code = 1751-7) 3.7 3.5-5.0 [facility] HospitalPlasma globulin measurement (mass/volume) 2019-12-27 20:02:00* Test Item Value Reference Range Interpretation Comments Globulin (test code = 47404-1) 3.9 2.3-3.5 [facility]kinerum or plasma albumin/globulin mass xsyat4939-22-00 20:02:00* Test Item Value Reference Range Interpretation Comments Albumin/Globulin Ratio (test code = 1759-0) 0.9 0.8-2.0 [facility]kinerum or plasma alkaline phosphatase measurement (enzymatic activity/volume)2019-12-27 20:02:00* Test Item Value Reference Range Interpretation Comments Alkaline Phosphatase (test code = 6768-6) 113 40-150 [facility] HospitalBNP Ndd-eRgo9076-85-20 20:02:00* Test Item Value Reference Range Interpretation Comments B-Type Natriuretic Peptide (test code = 82627-5) 27.2 0-100 [facility]kinerum or plasma creatine kinase measurement (enzymatic activity/volume)2019-12-27 20:02:00* Test Item Value Reference Range Interpretation Comments Creatine Kinase (test code = 2157-6) 34 29-168 [facility]kinerum or plasma creatine kinase MB measurement (mass/volume)2019-12-27 20:02:00* Test Item Value Reference Range Interpretation Comments Creatine Kinase MB (test code = 79252-6) 0.30 0-5.0 [facility] HospitalTroponin I measurement by highly sensitive enzyme szexooouqoy9470-16-98 20:02:00* Test Item Value Reference Range Interpretation Comments Troponin I (test code = 87570-8) < 0.001 0-0.300 [facility] PK[facility]85[facility]89 08:41:00 [facility] [address] [address] Patient Name: SHARLENE MOORE MR #: [id number] : 1935 Age/Sex: 84/F Req #: [id number] Adm Physician: Ordered by: LUIS CLEMENS, CRIS CLEMENS Report #: [id number] Location: [facility]/Bed: Procedure: [id number] CT/CT BRAIN WO Exam Date: 12/15/19 Exam Time: 0753 REPORT STATUS: Signed History:High blood pre ssure, dizziness, weakness. Comparison studies:None Technique: Axial im ages were obtained from the skull base to the vertex. Coronal and sagittal abram ges reconstructed from the axial data. Intravenous contrast: None Dose modul ation, iterative reconstruction, and/or weight based adjustment of the mA/kV w as utilized to reduce the radiation dose to as low as reasonably achievable. Findings: Scalp/skull: No abnormalities. Extra-axial spaces: No masses. No fluid collections. Brain sulci: Mildly prominent. Ventric les: Mild compensatory dilatation. No hydrocephalus. Parenchyma: Few sub tle hypodensities in the supratentorial white matter are small vessel ischemic changes. No masses, hemorrhage, acute or chronic cortical vascular insults. Sellar/suprasellar region: No abnormalities. Craniocervical junction: Bates nt foramen magnum. No Chiari one malformation. Incidental findings: Athe rosclerotic calcifications in the carotid siphons . Subcentimeter left frontal sinus osteoma, incidentally noted. Impression: No acute abnormalities . Chronic findings: 1. Mild supratentorial white matter small vessel isc hemic changes. Signed by: DR Ki Burgos M.D. on 12/15/2019 8:44 AM Dictated By: KI DODGE MD 3 Transcribed By: JOHN on 12/15/19843 [employer] Y TO: CRIS SMITH CHEST SINGLE (PORTABLE)2019-12-15 08:20:00 [place] [address] Patient Name: SHARLENE MOORE MR #: [id number] : 1935 Age/Sex: 84/F Req #: [id number] Adm Physician: Ordered by: CRIS SMITH MD, MD Report #: [id number] Location: [facility]/Bed: Procedure: [id number] DX/CHEST SI NGLE (PORTABLE) Exam Date: 12/15/19 Exam Time: 0753 REPORT STATUS: Signed EXAM: [facility] ST SINGLE (PORTABLE) DATE: 12/15/2019 7:53 AM INDICATION: Hypertension COMPARISON: None FINDINGS: The trachea is midline. The lungs are s ymmetrically expanded without evidence for large focal consolidation, pneumoth orax, or significant pleural effusion. The cardiomediastinal silhouette and pulmonary vasculature are within normal limits. No acute osseous abnormality is identified. The surrounding soft tissues are unremarkable. IMPRESSI ON: No acute cardiopulmonary process identified. Signed by: Dr. Tobin garcia MD on 12/15/2019 8:20 AM Dictated By: TOBIN SANDERS MD Electronical ly Signed By: TOBIN SANDERS MD on 12/15/19819 Transcribed By: JOHN on 12/14 COPY TO: CRIS SMITH Blood leukocytes automated count (number/volume)2019-12-15 07:32:00* Test Item Value Reference Range Interpretation Comments White Blood Count (test code = 6690-2) 5.87 4.8-10.8 [facility] HospitalB[facility] erythrocytes automated count (number/volume)2019-12-15 07:32:00* Test Item Value Reference Range Interpretation Comments Red Blood Count (test code = 789-8) 3.79 3.6-5.1 [facility] HospitalBlood hemoglobin measurement (moles/volume)2019-12-15 07:32:00* Test Item Value Reference Range Interpretation Comments Hemoglobin (test code = 57930-5) 11.5 12.0-16.0 [facility] HospitalAutomated blood hematocrit (volume fraction)2019-12-15 07:32:00* Test Item Value Reference Range Interpretation Comments Hematocrit (test code = 4544-3) 35.4 34.2-44.1 [facility] HospitalAutomated erythrocyte mean corpuscular mmnduh8355-33-82 07:32:00* Test Item Value Reference Range Interpretation Comments Mean Corpuscular Volume (test code = 787-2) 93.4 81-99 [facility] HospitalAutomated erythrocyte mean corpuscular hemoglobin (mass per erythrocyte)2019-12-15 07:32:00* Test Item Value Reference Range Interpretation Comments Mean Corpuscular Hemoglobin (test code = 785-6) 30.3 28-32 [facility] HospitalAutomated erythrocyte mean corpuscular hemoglobin concentration measurement (mass/volume)2019-12-15 07:32:00* Test Item Value Reference Range Interpretation Comments Mean Corpuscular Hemoglobin Concent (test code = 786-4) 32.5 31-35 [facility] HospitalRDW ImdTd-Nhg2492-35-08 07:32:00* Test Item Value Reference Range Interpretation Comments Red Cell Distribution Width (test code = 80787-3) 13.5 11.7 -14.4 [facility] HospitalAutomated blood platelet count (count/volume)2019-12-15 07:32:00* Test Item Value Reference Range Interpretation Comments Platelet Count (test code = 777-3) 245 140-360 [facility] HospitalAutomated blood segmented neutrophil count as percentage of total ztpxewpcqa8328-39-29 07:32:00* Test Item Value Reference Range Interpretation Comments Neutrophils (%) (Auto) (test code = 93794-2) 72.2 38.7-80.0 [facility] HospitalAutomated blood lymphocyte count as percentage ot total rntsgfxios9001-06-00 07:32:00* Test Item Value Reference Range Interpretation Comments Lymphocytes (%) (Auto) (test code = 736-9) 15.7 18.0-39.1 [facility] HospitalAutomated blood monocyte count as percentage of total hjpxjukfzy5024-94-52 07:32:00* Test Item Value Reference Range Interpretation Comments Monocytes (%) (Auto) (test code = 5905-5) 9.4 4.4-11.3 [facility] HospitalAutomated blood eosinophil count as percentage of total fsuxvkxtie2878-78-53 07:32:00* Test Item Value Reference Range Interpretation Comments Eosinophils (%) (Auto) (test code = 713-8) 1.5 0.0-6.0 [facility] HospitalAutomated blood basophil count as percentage of total bobuladdmz8582-77-92 07:32:00* Test Item Value Reference Range Interpretation Comments Basophils (%) (Auto) (test code = 706-2) 0.9 0.0-1.0 [facility] HospitalFluoroscopic procedure less than one hour rnxchajm5838-82-81 07:32:00* Test Item Value Reference Range Interpretation Comments IM GRANULOCYTES % (test code = IM GRANULOCYTES %) 0.3 0.0- 1.0 [facility] HospitalAutomated blood neutrophil count 2019-12-15 07:32:00* Test Item Value Reference Range Interpretation Comments Neutrophils # (Auto) (test code = 751-8) 4.2 2.1-6.9 [facility] HospitalBlood lymphocytes count (number/volume) 2019-12-15 07:32:00* Test Item Value Reference Range Interpretation Comments Lymphocytes # (Auto) (test code = 92575-4) 0.9 1.0-3.2 [facility] HospitalBlood monocytes automated count (number/volume)2019-12-15 07:32:00* Test Item Value Reference Range Interpretation Comments Monocytes # (Auto) (test code = 742-7) 0.6 0.2-0.8 [facility] HospitalAutomated blood eosinophil count 2019-12-15 07:32:00* Test Item Value Reference Range Interpretation Comments Eosinophils # (Auto) (test code = 711-2) 0.1 0.0-0.4 [facility] HospitalAutomated blood basophil count (count/volume)2019-12-15 07:32:00* Test Item Value Reference Range Interpretation Comments Basophils # (Auto) (test code = 704-7) 0.1 0.0-0.1 [facility] HospitalFluoroscopic procedure less than one hour qrmjjwjy8837-59-02 07:32:00* Test Item Value Reference Range Interpretation Comments Absolute Immature Granulocyte (auto (lionel t code = Absolute Immature Granulocyte (auto) 0.02 0-0.1 [facility] HospitalProthrombin time (PT) in platelet poor plasma by coagulation zybkk5849-07-53 07:32:00* Test Item Value Reference Range Interpretation Comments Prothrombin Time (test code = 5902-2) 11.8 11.9-14.5 [facility] HospitalINR in Platelet poor plasma by Coagulation lcnyv9245-92-35 07:32:00* Test Item Value Reference Range Interpretation Comments Prothromb Time International Ratio (test code = 6301-6) 0.82 Oral Anticoagulant Therapy INR Values:1. Low Intensity Therapy 1.5 - 2.02 . Moderate Intensity Therapy 2.0 - 3.03. High Intensity Therapy(1) 2.5 - 3. 54. High Intensity Therapy(2) 3.0 - 4.05. Panic Value INR > 5.0 [facility] HospitalActivated partial thromboplastin time (aPTT) in platelet poor plasma by coagulation pdkan4409-51-63 07:32:00* Test Item Value Reference Range Interpretation Comments Activated Partial Thromboplast Time (test code = 18964-5) 29.5 23.8-35.5 [facility] HospitalUrine color xybazinybbccb9014-34-03 07:32:00* Test Item Value Reference Range Interpretation Comments Urine Color (test code = 5778-6) YELLOW YELLOW [facility] HospitalUrine nbppgka9585-41-29 07:32:00* Test Item Value Reference Range Interpretation Comments Urine Clarity (test code = 63193-5) SL CLOUDY CLEAR [facility] gravity of Urine by Test strip 2019-12-15 07:32:00* Test Item Value Reference Range Interpretation Comments Urine Specific [place] (test code = 5811-5) 1.025 1.010-1.02 5 [facility] HospitalU[facility] pH measurement by automated test wifrf3930-02-78 07:32:00* Test Item Value Reference Range Interpretation Comments Urine pH (test code = 60220-7) 6.5 5-7 [facility] HospitalUrine leukocyte esterase detection by avbxfwrw1961-60-50 07:32:00* Test Item Value Reference Range Interpretation Comments Urine Leukocyte Esterase (test code = 5799-2) MODERATE NEGATIVE [facility] HospitalUrine nitrite wznoxdqkk4160-49-99 07:32:00* Test Item Value Reference Range Interpretation Comments Urine Nitrite (test code = 40035-9) NEGATIVE NEGATIVE [facility] HospitalUrine protein measurement by test strip (mass/volume)2019-12-15 07:32:00* Test Item Value Reference Range Interpretation Comments Urine Protein (test code = 5804-0) NEGATIVE NEGATIVE [facility] HospitalUrine glucose vpfiaiqbx9262-73-51 07:32:00* Test Item Value Reference Range Interpretation Comments Urine Glucose (UA) (test code = 2349-9) NEGATIVE NEGATIVE [facility] HospitalUrine ketones detection by automated test uscro7095-44-98 07:32:00* Test Item Value Reference Range Interpretation Comments Urine Ketones (test code = 93907-3) NEGATIVE NEGATIVE [facility] HospitalUrine urobilinogen measurement by test strip (mass/volume)2019-12-15 07:32:00* Test Item Value Reference Range Interpretation Comments Urine Urobilinogen (test code = 99708-6) 0.2 0.2-1 [facility] HospitalUrine total bilirubin measurement (mass/volume)2019-12-15 07:32:00* Test Item Value Reference Range Interpretation Comments Urine Bilirubin (test code = 1978-6) NEGATIVE NEGATIVE [facility] HospitalUrine erythrocytes dfzinzais7195-48-32 07:32:00* Test Item Value Reference Range Interpretation Comments Urine Blood (test code = 53005-7) TRACE NEGATIVE [facility] HospitalAutomated urine sediment leukocyte count by microscopy (number/high power field)2019-12-15 07:32:00* Test Item Value Reference Range Interpretation Comments Urine WBC (test code = 5821-4) 21-50 0-5 [facility] HospitalErythrocytes detection in urine sediment by light lhwttiffca8869-76-01 07:32:00* Test Item Value Reference Range Interpretation Comments Urine RBC (test code = 08780-1) 0-5 0-5 [facility] HospitalBacteria detection in urine sediment by light hgydyjtxeo7072-66-66 07:32:00* Test Item Value Reference Range Interpretation Comments Urine Bacteria (test code = 43139-0) MODERATE NONE [facility] HospitalEpithelial cells detection in urine sediment by light zlsxkqorro3187-25-09 07:32:00* Test Item Value Reference Range Interpretation Comments Urine Epithelial Cells (test code = 17140-9) FEW NONE [facility] HospitalTransitional cells detection in urine sediment by light lzoxyzxpqb0823-36-11 07:32:00* Test Item Value Reference Range Interpretation Comments Urine Transitional Epithelial Cells (test code = 8249-5) FEW NONE [facility] or plasma sodium measurement (moles/volume)2019-12-15 07:32:00* Test Item Value Reference Range Interpretation Comments Sodium Level (test code = 2951-2) 129 136-145 [facility]um or plasma potassium measurement (moles/volume)2019-12-15 07:32:00* Test Item Value Reference Range Interpretation Comments Potassium Level (test code = 2823-3) 3.8 3.5-5.1 [facility]um or plasma chloride measurement (moles/volume)2019-12-15 07:32:00* Test Item Value Reference Range Interpretation Comments Chloride Level (test code = 2075-0) 97 98-107 [facility]um or plasma carbon dioxide, total measurement (moles/volume)2019-12-15 07:32:00* Test Item Value Reference Range Interpretation Comments Carbon Dioxide Level (test code = 2028-9) 21 22-29 [facility]um or plasma anion pfo6289-86-11 07:32:00* Test Item Value Reference Range Interpretation Comments Anion Gap (test code = 58700-8) 14.8 8-16 [facility] or plasma urea nitrogen measurement (mass/volume)2019-12-15 07:32:00* Test Item Value Reference Range Interpretation Comments Blood Urea Nitrogen (test code = 3094-0) 16 7-26 [facility] or plasma creatinine measurement (mass/volume)2019-12-15 07:32:00* Test Item Value Reference Range Interpretation Comments Creatinine (test code = 2160-0) 0.70 0.57-1.11 [facility]um or plasma urea nitrogen/creatinine mass fbwdt4056-97-89 07:32:00* Test Item Value Reference Range Interpretation Comments BUN/Creatinine Ratio (test code = 3097-3) 23 6-25 [facility] HospitalEstimated glomerular filtration rate (GFR) baakzhoiwrneo0198-18-04 07:32:00* Test Item Value Reference Range Interpretation Comments Estimat Glomerular Filtration Rate (test code = 594355891) > 60 >60 Ranges were taken from the National Kidney Disease Education Program and the [facility] Kid[facility] Foundation literature.Reference ranges:60 or greater: Noqfcn72-11 ( for 3 consecutive months): Chronic kidney disease 15 or less: Kidney failureMemorial Hermann Cypress HospitalGlucose ulrduybmidt0690-39-21 07:32:00* Test Item Value Reference Range Interpretation Comments Glucose Level (test code = JSY4995) 119 74-118 [facility] or plasma calcium measurement (mass/volume)2019-12-15 07:32:00* Test Item Value Reference Range Interpretation Comments Calcium Level (test code = 22699-1) 9.3 8.4-10.2 [facility] or plasma magnesium measurement (mass/volume)2019-12-15 07:32:00* Test Item Value Reference Range Interpretation Comments Magnesium Level (test code = 92978-9) 1.8 1.3-2.1 [facility] or plasma total bilirubin measurement (mass/volume)2019-12-15 07:32:00* Test Item Value Reference Range Interpretation Comments Total Bilirubin (test code = 1975-2) 0.4 0.2-1.2 [facility] HospitalFluoroscopic procedure less than one hour fgfjpwkm9218-61-45 07:32:00* Test Item Value Reference Range Interpretation Comments Aspartate Amino Transf (AST/SGOT) (test code = Aspartate Amino Transf (AST/SGOT)) 20 5-34 [facility] or plasma alanine aminotransferase measurement (enzymatic activity/volume)2019-12-15 07:32:00* Test Item Value Reference Range Interpretation Comments Alanine Aminotransferase (ALT/SGPT) (test code = 1742-6) 17 0-55 [facility] or plasma protein measurement (mass/volume)2019-12-15 07:32:00* Test Item Value Reference Range Interpretation Comments Total Protein (test code = 2885-2) 7.1 6.5-8.1 [facility] or plasma albumin measurement (mass/volume)2019-12-15 07:32:00* Test Item Value Reference Range Interpretation Comments Albumin (test code = 1751-7) 3.8 3.5-5.0 [facility] HospitalPlasma globulin measurement (mass/volume) 2019-12-15 07:32:00* Test Item Value Reference Range Interpretation Comments Globulin (test code = 27143-7) 3.3 2.3-3.5 [facility] or plasma albumin/globulin mass votkb3388-27-51 07:32:00* Test Item Value Reference Range Interpretation Comments Albumin/Globulin Ratio (test code = 1759-0) 1.2 0.8-2.0 [facility] or plasma alkaline phosphatase measurement (enzymatic activity/volume)2019-12-15 07:32:00* Test Item Value Reference Range Interpretation Comments Alkaline Phosphatase (test code = 6768-6) 74 40-150 [facility] HospitalBNP Wbw-zXaz3526-06-08 07:32:00* Test Item Value Reference Range Interpretation Comments B-Type Natriuretic Peptide (test code = 54388-2) 77.6 0-100 [facility] or plasma creatine kinase measurement (enzymatic activity/volume)2019-12-15 07:32:00* Test Item Value Reference Range Interpretation Comments Creatine Kinase (test code = 2157-6) 37 29-168 [facility] or plasma creatine kinase MB measurement (mass/volume)2019-12-15 07:32:00* Test Item Value Reference Range Interpretation Comments Creatine Kinase MB (test code = 06910-0) < 1.00 0-4.3 [facility] or plasma troponin i.cardiac measurement (mass/volume)2019-12-15 07:32:00* Test Item Value Reference Range Interpretation Comments Troponin I (test code = 85931-7) < 0.05 0.0-0.40 [facility] or plasma thyrotropin measurement by detection limit <= 0.005 miu/l (units/volume)2019-12-15 07:32:00* Test Item Value Reference Range Interpretation Comments Thyroid Stimulating Hormone (TSH) (test code = 03796-5) 3.462 0.350-4.940 [facility] HospitalProthrombin time (PT) in platelet poor plasma by coagulation iiaez8247-24-42 07:32:00* Test Item Value Reference Range Interpretation Comments Prothrombin Time (test code = 5902-2) 11.8 11.9-14.5 [facility] HospitalINR in Platelet poor plasma by Coagulation spxfa9388-98-17 07:32:00* Test Item Value Reference Range Interpretation Comments Prothromb Time International Ratio (test code = 6301-6) 0.82 Oral Anticoagulant Therapy INR Values:1. Low Intensity Therapy 1.5 - 2.02 . Moderate Intensity Therapy 2.0 - 3.03. High Intensity Therapy(1) 2.5 - 3. 54. High Intensity Therapy(2) 3.0 - 4.05. Panic Value INR > 5.0 [facility] HospitalActivated partial thromboplastin time (aPTT) in platelet poor plasma by coagulation xnqqn2934-78-23 07:32:00* Test Item Value Reference Range Interpretation Comments Activated Partial Thromboplast Time (test code = 40568-4) 29.5 23.8-35.5 [facility] HospitalTransitional cells detection in urine sediment by light ysgzqhimga8961-89-93 07:32:00* Test Item Value Reference Range Interpretation Comments Urine Transitional Epithelial Cells (test code = 8249-5) FEW NONE [facility] or plasma magnesium measurement (mass/volume)2019-12-15 07:32:00* Test Item Value Reference Range Interpretation Comments Magnesium Level (test code = 98232-7) 1.8 1.3-2.1 [facility] or plasma thyrotropin measurement by detection limit <= 0.005 miu/l (units/volume)2019-12-15 07:32:00* Test Item Value Reference Range Interpretation Comments Thyroid Stimulating Hormone (TSH) (test code = 81650-6) 3.462 0.350-4.940 [facility] HospitalCapillary blood glucose measurement by glucometer (mass/volume)2019-11-24 11:43:00* Test Item Value Reference Range Interpretation Comments Bedside Glucose (test code = 79178-6) 94 70-120 Meter ID: [id number] Hermann Cypress HospitalCapillary blood glucose measurement by glucometer (mass/volume)2019-11-24 11:43:00* Test Item Value Reference Range Interpretation Comments Bedside Glucose (test code = 13228-0) 94 70-120 Meter ID: [id number] [facility] HospitalFluoroscopic procedure less than one hour vldbfzjq7231-71-87 09:32:00* Test Item Value Reference Range Interpretation Comments Coronavirus (PCR) (test code = Coronavirus (PCR)) NOT DETECTED NOTD ETECTED SARS-COV-2 (COVID19), HIGHRISK, RT-PCRNegative results do not preclude SARS-CoV- 2 infection and should not be used as the sole basis for patient management deci sions. Negative results must be combined with clinical observations, patient his tory, and epidemiological information. Optimum specimen types and timing for pea k viral levels during infections caused by SARS-CoV-2 have not been determined. Collection of multiple specimens ot types of specimens may be necessary to detec t virus. Improper specimen collection and handling, sequence variability under p rimers/probes, or organism present below the limit of detection may lead to fals e negative results. Positive and negative predictive values of testing are highl y dependent on prevalance. False negative test results are more likely when prev alence is high.The expected result is negative (not detected).The SARS-CoV-2 lionel t is intended for the qualitative detection of nucleic acid from SARS-CoV-2 in n asopharyngeal and oropharyngeal swab samples from patients who meet COVID-19 cli nical and or epidemiological criteria. For lower respiratory tract specimens, th e assay is submitted for authoriztion by FDA under an Emergency Use Authorizatio n (EUA). Testing methodology is real time RT-PCR. If received as separate collec tion devices, nasopharygeal and oropharyngeal specimens are combined for analysi s. Additional specimens may be split to a separate accession for analysi and rep orting as this test includes a single unit of service.Test results must be corre lated with clinical presentation and evaluated in the context of other laborator y and epidemiologic data. Test performance can be affected because the epidemiol ogy and clinical spectrum of infection caused by SARS-CoV-2 is not fully known. For example, the optimum types of specimens to collect and when during the cours e of infection these specimens are most likely to contain detectable viral RNA m ay not be known.This test has not been Food and Drug Administration (FDA) cleare d or approved and has been authorized by FDA under an Emergency Use Authorizatio n (EUA). The test is only authorized for the duration of the declaration that ci rcumstances exist justifying the authorization of emergency use of in vitro diag nostic tests for detection and/or diagnosis of SARS-CoV-2 under section 564(b) o f the Act, 21 U.S.C. section 360bbb-3(b)(1), unless the authorization is termina tierra or revoked sooner. [facility] are certified under the C linical Laboratory Improvement Amendments of 1988 (CLIA), 42 U.S.C. section 263a , to perform high complexity tests.Testing performed by [facility] [address] [phone] Director: Carlos Man M.D.CLIA # [id number] [facility] Fluoroscopic procedure less than one hour gjukxhzw6277-76-12 09:32:00* Test Item Value Reference Range Interpretation Comments Coronavirus (PCR) (test code = Coronavirus (PCR)) NOT DETECTED NOTD ETECTED SARS-COV-2 (COVID19), HIGHRISK, RT-PCRNegative results do not preclude SARS-CoV- 2 infection and should not be used as the sole basis for patient management deci sions. Negative results must be combined with clinical observations, patient his tory, and epidemiological information. Optimum specimen types and timing for pea k viral levels during infections caused by SARS-CoV-2 have not been determined. Collection of multiple specimens ot types of specimens may be necessary to detec t virus. Improper specimen collection and handling, sequence variability under p rimers/probes, or organism present below the limit of detection may lead to fals e negative results. Positive and negative predictive values of testing are highl y dependent on prevalance. False negative test results are more likely when prev alence is high.The expected result is negative (not detected).The SARS-CoV-2 lionel t is intended for the qualitative detection of nucleic acid from SARS-CoV-2 in n asopharyngeal and oropharyngeal swab samples from patients who meet COVID-19 cli nical and or epidemiological criteria. For lower respiratory tract specimens, th e assay is submitted for authoriztion by FDA under an Emergency Use Authorizatio n (EUA). Testing methodology is real time RT-PCR. If received as separate collec tion devices, nasopharygeal and oropharyngeal specimens are combined for analysi s. Additional specimens may be split to a separate accession for analysi and rep orting as this test includes a single unit of service.Test results must be corre lated with clinical presentation and evaluated in the context of other laborator y and epidemiologic data. Test performance can be affected because the epidemiol ogy and clinical spectrum of infection caused by SARS-CoV-2 is not fully known. For example, the optimum types of specimens to collect and when during the cours e of infection these specimens are most likely to contain detectable viral RNA m ay not be known.This test has not been Food and Drug Administration (FDA) cleare d or approved and has been authorized by FDA under an Emergency Use Authorizatio n (EUA). The test is only authorized for the duration of the declaration that ci rcumstances exist justifying the authorization of emergency use of in vitro diag nostic tests for detection and/or diagnosis of SARS-CoV-2 under section 564(b) o f the Act, 21 U.S.C. section 360bbb-3(b)(1), unless the authorization is termina tierra or revoked sooner. [facility] are certified under the C linical Laboratory Improvement Amendments of 1988 (CLIA), 42 U.S.C. section 263a , to perform high complexity tests.Testing performed by [facility] [id number] [place], [place] [phone] Director: Carlos Man M.D.CLIA # [id number] [facility] ABDOMEN-1VIEW (KUB)2019-10-31 18:34:00 [place] [address] Patient Name: SHARLENE MOORE MR #: [id number] : 1935 Age/Sex: 84/F Req #: [id number] Adm Physician: Ordered by: ZAINAB PATTERSON [employer] Report #: [id number] Location: ER Room/Bed: Procedure: [id number] DX /ABDOMEN-1VIEW (KUB) Exam Date: 10/31/19 Exam Time: 1800 REPORT STATUS: Signed EXAM: Abdomen 1 View INDICATION: abd fullness [id number] COMPAR JC: Abdominal x-ray dated September 30, 2019 FINDINGS: Nonobstructive bowel gas pattern. No signs of pneumoperitoneum. Moderate colonic stool burde n. Clear lung bases. No acute osseous abnormality. Degenerative changes of l ower lumbar spine. IMPRESSION: Nonobstructive bowel gas pattern. Signed by: Dr. Jenny Witt MD on 10/31/2019 6:35 PM Dictated By: JENNY WITT MD 34 Transcr ibed By: JOHN on 10/31/191834 COPY TO: ZAINAB PATTERSON NP Serum or plasma amylase measurement (enzymatic activity/volume)2019-10-31 17:00:00* Test Item Value Reference Range Interpretation Comments Amylase Level (test code = 1798-8) 37 [facility] plasma lipase measurement (enzymatic activity/volume)2019-10-31 17:00:00* Test Item Value Reference Range Interpretation Comments Lipase (test code = 3040-3) [facility] plasma amylase measurement (enzymatic activity/volume)2019-10-31 17:00:00* Test Item Value Reference Range Interpretation Comments Amylase Level (test code = 1798-8) 37 25-125 [facility] plasma lipase measurement (enzymatic activity/volume)2019-10-31 17:00:00* Test Item Value Reference Range Interpretation Comments Lipase (test code = 3040-3) [facility] HospitalBedside Qmeoexe6433-59-63 14:39:00* Test Item Value Reference Range Interpretation Comments Bedside Glucose (test code = 93995-7) 140 70-120 H Meter ID: [id number] [facility] HospitalAB[facility] 2019-09-30 08:03:00 [facility] [address] [place] [address] Patient Name: SHARLENE MOORE MR #: [id number] : 1935 Age/Sex: 84/F Req #: [id number] Adm Physician: HAYLEY PETERSEN MD Ordered by: CAREY LOFTON MD Report #: [id number] Location: MED/SURG Room/Bed: [facility] Procedure: [id number] DX/ABDOMEN 2 VIEW Exam [...] 8:08 AM Dictated By: MILTON SHEPHERD MD 7 Transcribed By: Bev RAMIREZ on 09/30/19807 COPY TO: CAREY LOFTON MD Sodium Klfbz7957-69-50 05:40:00* Test Item Value Reference Range Interpretation Comments Sodium Level (test code = 2951-2) 138 136-145 [facility] HospitalPotassium Sndax5751-27-24 05:40:00* Test Item Value Reference Range Interpretation Comments Potassium Level (test code = 2823-3) 3.6 3.5-5.1 [facility] HospitalChloride Kdqwm1067-74-73 05:40:00* Test Item Value Reference Range Interpretation Comments Chloride Level (test code = 2075-0) 109 98-107 H [facility] HospitalCarbon Dioxide Tevva5548-90-79 05:40:00* Test Item Value Reference Range Interpretation Comments Carbon Dioxide Level (test code = 2028-9) 19 22-29 L [facility] HospitalAnion Trl5525-66-22 05:40:00* Test Item Value Reference Range Interpretation Comments Anion Gap (test code = 27459-5) 13.6 8-16 [facility] HospitalBlood Urea Rnmygsmj7344-74-80 05:40:00* Test Item Value Reference Range Interpretation Comments Blood Urea Nitrogen (test code = 3094-0) 12 7-26 [facility] HospitalCreatinine2020-03-24 05:40:00* Test Item Value Reference Range Interpretation Comments Creatinine (test code = 2160-0) 0.66 0.57-1.11 [facility] HospitalBUN/Creatinine Jahrl2319-81-10 05:40:00* Test Item Value Reference Range Interpretation Comments BUN/Creatinine Ratio (test code = 3097-3) 18 6-25 [facility] HospitalEstimat Glomerular Filtration Rate 2019-09-30 05:40:00* Test Item Value Reference Range Interpretation Comments Estimat Glomerular Filtration Rate (test code = 161433689) > 60 >60 Ranges were taken from the National Kidney Disease Education Program and the [facility] Kid[facility] Foundation literature.Reference ranges:60 or greater: Shxtyw66-47 ( for 3 consecutive months): Chronic kidney disease 15 or less: Kidney failureMemorial Hermann Cypress HospitalGlucose Ahcmt1804-76-58 05:40:00* Test Item Value Reference Range Interpretation Comments Glucose Level (test code = BAM8205) 66 74-118 L [facility] HospitalCalcium Itrjm3518-66-68 05:40:00* Test Item Value Reference Range Interpretation Comments Calcium Level (test code = 47889-5) 8.1 8.4-10.2 L [facility] HospitalWhite Blood Wlybc9537-95-49 05:21:00* Test Item Value Reference Range Interpretation Comments White Blood Count (test code = 6690-2) 6.54 4.8-10.8 [facility] HospitalRed Blood Cnycx8333-71-75 05:21:00* Test Item Value Reference Range Interpretation Comments Red Blood Count (test code = 789-8) 3.65 3.6-5.1 [facility] HospitalHemoglobin2020-03-24 05:21:00* Test Item Value Reference Range Interpretation Comments Hemoglobin (test code = 02207-3) 11.3 12.0-16.0 L [facility] HospitalHematocrit2020-03-24 05:21:00* Test Item Value Reference Range Interpretation Comments Hematocrit (test code = 4544-3) 34.3 34.2-44.1 [facility] HospitalMean Corpuscular Qrxppp6796-25-05 05:21:00* Test Item Value Reference Range Interpretation Comments Mean Corpuscular Volume (test code = 787-2) 94.0 81-99 [facility] HospitalMean Corpuscular Juyupyrmbc4807-01-51 05:21:00* Test Item Value Reference Range Interpretation Comments Mean Corpuscular Hemoglobin (test code = 785-6) 31.0 28-32 [facility] HospitalMean Corpuscular Hemoglobin Concent 2019-09-30 05:21:00* Test Item Value Reference Range Interpretation Comments Mean Corpuscular Hemoglobin Concent (test code = 786-4) 32.9 31-35 [facility] HospitalRed Cell Distribution Tazkf7869-50-78 05:21:00* Test Item Value Reference Range Interpretation Comments Red Cell Distribution Width (test code = 26483-3) 13.4 11.7 -14.4 [facility] HospitalPlatelet Dxvth9996-21-83 05:21:00* Test Item Value Reference Range Interpretation Comments Platelet Count (test code = 777-3) 234 140-360 [facility] HospitalNeutrophils (%) (Auto)2019-09-30 05:21:00 * Test Item Value Reference Range Interpretation Comments Neutrophils (%) (Auto) (test code = 14980-1) 67.3 38.7-80.0 [facility] HospitalLymphocytes (%) (Auto)2019-09-30 05:21:00 * Test Item Value Reference Range Interpretation Comments Lymphocytes (%) (Auto) (test code = 736-9) 19.4 18.0-39.1 [facility] HospitalMonocytes (%) (Auto)2019-09-30 05:21:00* Test Item Value Reference Range Interpretation Comments Monocytes (%) (Auto) (test code = 5905-5) 10.2 4.4-11.3 [facility] HospitalEosinophils (%) (Auto)2019-09-30 05:21:00 * Test Item Value Reference Range Interpretation Comments Eosinophils (%) (Auto) (test code = 713-8) 2.0 0.0-6.0 [facility] (Auto)2019-09-30 05:21:00* Test Item Value Reference Range Interpretation Comments Basophils (%) (Auto) (test code = 706-2) 0.6 0.0-1.0 [facility] HospitalIM GRANULOCYTES %2019-09-30 05:21:00* Test Item Value Reference Range Interpretation Comments IM GRANULOCYTES % (test code = IM GRANULOCYTES %) 0.5 0.0- 1.0 [facility] HospitalNeutrophils # (Auto)2019-09-30 05:21:00* Test Item Value Reference Range Interpretation Comments Neutrophils # (Auto) (test code = 751-8) 4.4 2.1-6.9 [facility] HospitalLymphocytes # (Auto)2019-09-30 05:21:00* Test Item Value Reference Range Interpretation Comments Lymphocytes # (Auto) (test code = 22672-6) 1.3 1.0-3.2 [facility] HospitalMonocytes # (Auto)2019-09-30 05:21:00* Test Item Value Reference Range Interpretation Comments Monocytes # (Auto) (test code = 742-7) 0.7 0.2-0.8 [facility] HospitalEosinophils # (Auto)2019-09-30 05:21:00* Test Item Value Reference Range Interpretation Comments Eosinophils # (Auto) (test code = 711-2) 0.1 0.0-0.4 [facility] HospitalBasophils # (Auto)2019-09-30 05:21:00* Test Item Value Reference Range Interpretation Comments Basophils # (Auto) (test code = 704-7) 0.0 0.0-0.1 [facility] HospitalAbsolute Immature Granulocyte (auto 2019-09-30 05:21:00* Test Item Value Reference Range Interpretation Comments Absolute Immature Granulocyte (auto (lionel t code = Absolute Immature Granulocyte (auto) 0.03 0-0.1 [facility] HospitalCreatine Kinase FS5969-17-51 06:37:00* Test Item Value Reference Range Interpretation Comments Creatine Kinase MB (test code = 92490-0) 2.00 0-5.0 [facility] HospitalTroponin B4835-23-67 06:37:00* Test Item Value Reference Range Interpretation Comments Troponin I (test code = CFS0546) 0.001 0-0.300 [facility] HospitalCreatine Frhbbv8051-66-18 06:30:00* Test Item Value Reference Range Interpretation Comments Creatine Kinase (test code = 2157-6) 69 29-168 [facility] HospitalTotal Lbrryqxbv9511-53-32 06:22:00* Test Item Value Reference Range Interpretation Comments Total Bilirubin (test code = 1975-2) 0.5 0.2-1.2 [facility] HospitalAspartate Amino Transf (AST/SGOT) 2019-09-29 06:22:00* Test Item Value Reference Range Interpretation Comments Aspartate Amino Transf (AST/SGOT) (test code = Aspartate Amino Transf (AST/SGOT)) 22 5-34 [facility] HospitalAlanine Aminotransferase (ALT/SGPT) 2019-09-29 06:22:00* Test Item Value Reference Range Interpretation Comments Alanine Aminotransferase (ALT/SGPT) (test code = 1742-6) 19 0-55 [facility] HospitalTotal Yfriavv5145-79-61 06:22:00* Test Item Value Reference Range Interpretation Comments Total Protein (test code = 2885-2) 7.1 6.5-8.1 [facility] HospitalAlbumin2020-03-23 06:22:00* Test Item Value Reference Range Interpretation Comments Albumin (test code = 1751-7) 3.8 3.5-5.0 [facility] HospitalGlobulin2020-03-23 06:22:00* Test Item Value Reference Range Interpretation Comments Globulin (test code = 25881-8) 3.3 2.3-3.5 [facility] HospitalAlbumin/Globulin Oebfy1778-00-53 06:22:00 * Test Item Value Reference Range Interpretation Comments Albumin/Globulin Ratio (test code = 1759-0) 1.2 0.8-2.0 [facility] HospitalAlkaline Zltvwmnejua3774-62-03 06:22:00* Test Item Value Reference Range Interpretation Comments Alkaline Phosphatase (test code = 6768-6) 61 40-150 [facility] HospitalABDOMEN 2 EBSZ3258-61-69 05:44:00 [facility] [address] [address] Patient Name: SHARLENE MOORE MR #: [id number] : 1935 Age/Sex: 84/F Req #: [id number] Adm Physician: HAYLEY PETERSEN MD Ordered by: CAREY LOFTON MD Report #: [id number] Location: MED/SURG Room/Bed: [facility] Procedure: 04 DX/ABDOMEN 2 VIEW Exam Date: 09/29/19 Exam Time: 0530 REPORT STATUS: Signed EXAM: ABDOMEN 2 VIEW, DATE: 09/29/2019 INDICATION: Small bowel obstruction. COMPARISON: 09/28/2019. FINDINGS: LINES/TUBES: NG/orogastric tube with d istal tip projected on the gastric body, however, sidehole at the level of the GE junction; recommend advancing 2 to 3 cm. BOWEL PATTERN: Compared to the mixer foam rubber KUB of the recent CT examination, small [...] TO: CAREY LOFTON MD ABDOMEN-1VIEW (KUB)2019-09-28 10:12:00 [address] [address] Patient Name: SHARLENE MOORE MR #: [id number] : 1935 Age/Sex: 84/F Req #: [id number] Adm Physician: JAZZ CORDOVA MD Ordered by: EMILY ABDULLAHI MD Report #: [id number] Location: MED/SURG Room/Bed: [facility] Procedure: [id number] DX/ ABDOMEN-1VIEW (KUB) Exam Date: 09/28/19 Exam [...] COPY TO: EMILY ABDULLAHI MD CHEST 2 KYPIL1225-23-36 07:03:00 [address] [address] Patient Name: SHARLENE MOORE MR #: [id number] : 1935 Age/Sex: 84/F Req #: [id number] Adm Physician: Ordered by: ZAINAB CHUNG DO Report #: [id number] Location: ER Room/Bed: Procedure: [id number] DX/CH EST 2 VIEWS Exam Date: 09/28/19 [...] IMPRESSION: No acute thoracic abnormality. Signed by: Clinton King on 09/28/2019 7:04 AM Dictated By: YAMIL ADAM MD, MD 3 Transcribed By: JOHN on 703 COPY TO: ZAINAB CHUNG DO CT ABDOMEN/PELVIS W 2019-09-28 06:48:00 [address] [address] Patient Name: SHARLENE MOORE MR #: [id number] : 1935 Age/Sex: 84/F Req #: [id number] Adm Physician: Ordered by: ZAINAB CHUNG DO Report #: [id number] Location: ER Room/Bed: Procedure: [id number] CT/CT ABDOMEN/PELVIS W Exam Date: 09/28/19 Exam Time: 062 0 REPORT STATUS: Signed EXAM: CT Abdomen and Pelvis WITH contrast INDICATION: Epigastric pain. COMPARISON: 04/28/19. TECHNIQUE: Abdomen and pelvis were scanned utilizing a multidetecto r helical scanner from the lung base to the pubic symphysis after administrati on of IV contrast. Coronal and sagittal reformations [...] is absent. LYMPH NODES: No lymphadenopathy. VESSELS: Ther e is moderate atherosclerotic disease in the aorta and major arterial branches . PERITONEUM / RETROPERITONEUM: No free air or fluid. BONES: There ar e degenerative changes in the lumbar spine. SOFT TISSUES: Unremarkable. IMPRESSION: 1. Findings concerning for small bowel obstruction, possibl y partial with transitional point in the anterior pelvis. Recommend surgical c onsultation. Signed by: Dr. Bettina Adam M.D. on 09/28/2019 7:01 AM Dictated By: YAMIL ADAM MD, MD 0 Transcribed By: JOHN on 09/28/19 07 COPY TO: ZAINAB CHUNG DO Urine Rnxqk9817-55-81 06:39:00* Test Item Value Reference Range Interpretation Comments Urine Color (test code = 5778-6) YELLOW YELLOW [facility] HospitalUrine Yvjhnjn0817-10-86 06:39:00* Test Item Value Reference Range Interpretation Comments Urine Clarity (test code = 00771-0) CLEAR CLEAR [facility] HospitalUrine Specific Nwobslf4538-41-32 06:39:00 * Test Item Value Reference Range Interpretation Comments Urine Specific [place] (test code = 5811-5) >=1.030 1.010-1.02 5 [facility] HospitalUrine wA7249-92-48 06:39:00* Test Item Value Reference Range Interpretation Comments Urine pH (test code = 55986-5) 5.5 5-7 [facility] HospitalUrine Leukocyte Ygnrbruf0488-33-06 06:39:00* Test Item Value Reference Range Interpretation Comments Urine Leukocyte Esterase (test code = 5799-2) SMALL NEGATIVE [facility] HospitalUrine Ctlfdbp2903-51-25 06:39:00* Test Item Value Reference Range Interpretation Comments Urine Nitrite (test code = 96507-4) NEGATIVE NEGATIVE [facility] HospitalUrine Fplxzel5340-37-32 06:39:00* Test Item Value Reference Range Interpretation Comments Urine Protein (test code = 5804-0) 1+ NEGATIVE H [facility] Glucose (UA)2019-09-28 06:39:00* Test Item Value Reference Range Interpretation Comments Urine Glucose (UA) (test code = 2349-9) NEGATIVE NEGATIVE [facility] HospitalUrine Pcmoibi1145-09-06 06:39:00* Test Item Value Reference Range Interpretation Comments Urine Ketones (test code = 38425-4) 1+ NEGATIVE H [facility] Thtixrgkijbx6528-79-77 06:39:00* Test Item Value Reference Range Interpretation Comments Urine Urobilinogen (test code = 13923-1) 0.2 0.2-1 [facility] HospitalUrine Wqdpjzqyn9963-71-63 06:39:00* Test Item Value Reference Range Interpretation Comments Urine Bilirubin (test code = 1978-6) SMALL NEGATIVE [facility] HospitalUrine Xzsac2651-51-91 06:39:00* Test Item Value Reference Range Interpretation Comments Urine Blood (test code = 17637-9) TRACE NEGATIVE H [facility] HospitalUrine TWU1940-05-37 06:39:00* Test Item Value Reference Range Interpretation Comments Urine WBC (test code = 5821-4) 6-10 0-5 H [facility] HospitalUrine DID0972-91-94 06:39:00* Test Item Value Reference Range Interpretation Comments Urine RBC (test code = 70474-9) 6-10 0-5 H [facility] HospitalUrine Ynubwncx7365-57-25 06:39:00* Test Item Value Reference Range Interpretation Comments Urine Bacteria (test code = 18810-4) RARE NONE [facility] HospitalUrine Epithelial Wzbwe0913-61-04 06:39:00 * Test Item Value Reference Range Interpretation Comments Urine Epithelial Cells (test code = 97854-9) FEW NONE [facility] HospitalLipase2020-03-22 05:57:00* Test Item Value Reference Range Interpretation Comments Lipase (test code = 3040-3) 7 8-78 L [facility] HospitalCT ABDOMEN/PELVIS W3159-82-31 16:36:00 [facility] [address] [address] Patient Name: SHARLENE MOORE MR #: [id number] : 3 Age/Sex: 84/F Req #: [id number] Adm Physician: Ordered by: FLORENCE HOOPER MD Report #: [id number] Location: ER Room/Bed: Procedure: [id number] CT/CT ABDOMEN/PELVIS W Exam Date: 04/28/19 Exam [...] 04/28/191653 COPY TO: FLORENCE HOOPER MD Urine GNF6769-76-52 15:20:00* Test Item Value Reference Range Interpretation Comments Urine WBC (test code = 5821-4) 0-5 0-5 [facility] HospitalUrine KTW5983-33-30 15:20:00* Test Item Value Reference Range Interpretation Comments Urine RBC (test code = 99064-4) NONE 0-5 [facility] HospitalUrine Erhuuqjo6773-73-60 15:20:00* Test Item Value Reference Range Interpretation Comments Urine Bacteria (test code = 03501-5) NONE NONE [facility] HospitalUrine Epithelial Lbcyq5260-91-66 15:20:00 * Test Item Value Reference Range Interpretation Comments Urine Epithelial Cells (test code = 01813-4) FEW NONE [facility] HospitalUrine Hlqji9921-80-05 15:10:00* Test Item Value Reference Range Interpretation Comments Urine Color (test code = 5778-6) YELLOW YELLOW [facility] HospitalUrine Qhflqum5269-57-67 15:10:00* Test Item Value Reference Range Interpretation Comments Urine Clarity (test code = 29257-8) CLEAR CLEAR [facility] Specific Kbptwbn4799-14-78 15:10:00 * Test Item Value Reference Range Interpretation Comments Urine Specific [place] (test code = 5811-5) 1.010 1.010-1.02 5 [facility] HospitalUrine lC5633-02-31 15:10:00* Test Item Value Reference Range Interpretation Comments Urine pH (test code = 46478-2) 6 5-7 [facility] Leukocyte Vzhwrmom9528-17-18 15:10:00* Test Item Value Reference Range Interpretation Comments Urine Leukocyte Esterase (test code = 52696-6) SMALL NEGATIV E [facility] Msonaxq5497-66-17 15:10:00* Test Item Value Reference Range Interpretation Comments Urine Nitrite (test code = 34172-8) NEGATIVE NEGATIVE [facility] Uahcbfn9200-78-72 15:10:00* Test Item Value Reference Range Interpretation Comments Urine Protein (test code = 71427-2) NEGATIVE NEGATIVE [facility] Glucose (UA)2019-04-28 15:10:00* Test Item Value Reference Range Interpretation Comments Urine Glucose (UA) (test code = 68055-1) NEGATIVE NEGATIVE [facility] HospitalUrine Zmasihz8609-51-75 15:10:00* Test Item Value Reference Range Interpretation Comments Urine Ketones (test code = 83748-9) 1+ NEGATIVE H [facility] Psoeintcxxsv6500-77-92 15:10:00* Test Item Value Reference Range Interpretation Comments Urine Urobilinogen (test code = 79492-0) 0.2 0.2-1 [facility] HospitalUrine Okcvnofte2033-48-13 15:10:00* Test Item Value Reference Range Interpretation Comments Urine Bilirubin (test code = 1977-8) NEGATIVE NEGATIVE [facility] HospitalUrine Cwytt5080-75-18 15:10:00* Test Item Value Reference Range Interpretation Comments Urine Blood (test code = 93349-1) TRACE NEGATIVE H [facility]odium Dsonx9783-14-44 15:09:00* Test Item Value Reference Range Interpretation Comments Sodium Level (test code = 2951-2) 134 136-145 L [facility] HospitalPotassium Vwhuu5183-94-80 15:09:00* Test Item Value Reference Range Interpretation Comments Potassium Level (test code = 2823-3) 5.0 3.5-5.1 [facility] HospitalChloride Uanmz8688-16-85 15:09:00* Test Item Value Reference Range Interpretation Comments Chloride Level (test code = 2075-0) 100 98-107 [facility] HospitalCarbon Dioxide Mbdhn4656-72-82 15:09:00* Test Item Value Reference Range Interpretation Comments Carbon Dioxide Level (test code = 2028-9) 20 22-29 L [facility] HospitalAnion Gxc5256-63-19 15:09:00* Test Item Value Reference Range Interpretation Comments Anion Gap (test code = 58589-6) 19.0 8-16 H [facility] HospitalBlood Urea Wazbsukg4068-93-33 15:09:00* Test Item Value Reference Range Interpretation Comments Blood Urea Nitrogen (test code = 3094-0) 14 7-26 [facility] HospitalCreatinine2019-10-21 15:09:00* Test Item Value Reference Range Interpretation Comments Creatinine (test code = 2160-0) 0.82 0.57-1.11 [facility] HospitalBUN/Creatinine Relpj8292-23-21 15:09:00* Test Item Value Reference Range Interpretation Comments BUN/Creatinine Ratio (test code = 3097-3) 17 6-25 [facility] HospitalEstimat Glomerular Filtration Rate 2019-04-28 15:09:00* Test Item Value Reference Range Interpretation Comments Estimat Glomerular Filtration Rate (test code = 302662199) > 60 >60 Ranges were taken from the National Kidney Disease Education Program and the [facility] [employer] Foundation literature.Reference ranges:60 or greater: Mxqway00-19 ( for 3 consecutive months): Chronic kidney disease 15 or less: Kidney failureMemorial Hermann Cypress HospitalGlucose Yoveo9934-94-97 15:09:00* Test Item Value Reference Range Interpretation Comments Glucose Level (test code = UOU0040) 104 74-118 [facility] HospitalCalcium Yefih3830-59-82 15:09:00* Test Item Value Reference Range Interpretation Comments Calcium Level (test code = 43729-7) 9.9 8.4-10.2 [facility] HospitalWhite Blood Oaohs6436-19-89 14:49:00* Test Item Value Reference Range Interpretation Comments White Blood Count (test code = 6690-2) 7.98 4.8-10.8 [facility] HospitalRed Blood Jnims2490-08-89 14:49:00* Test Item Value Reference Range Interpretation Comments Red Blood Count (test code = 789-8) 4.25 3.6-5.1 [facility] HospitalHemoglobin2019-10-21 14:49:00* Test Item Value Reference Range Interpretation Comments Hemoglobin (test code = 39484-4) 13.1 12.0-16.0 [facility] HospitalHematocrit2019-10-21 14:49:00* Test Item Value Reference Range Interpretation Comments Hematocrit (test code = 4544-3) 39.2 34.2-44.1 [facility] HospitalMean Corpuscular Aszcql0697-21-61 14:49:00* Test Item Value Reference Range Interpretation Comments Mean Corpuscular Volume (test code = 787-2) 92.2 81-99 [facility] HospitalMean Corpuscular Ucnoleqnzs5734-25-69 14:49:00* Test Item Value Reference Range Interpretation Comments Mean Corpuscular Hemoglobin (test code = 785-6) 30.8 28-32 [facility] HospitalMean Corpuscular Hemoglobin Concent 2019-04-28 14:49:00* Test Item Value Reference Range Interpretation Comments Mean Corpuscular Hemoglobin Concent (test code = 786-4) 33.4 31-35 [facility] HospitalRed Cell Distribution Qpuqb6689-29-16 14:49:00* Test Item Value Reference Range Interpretation Comments Red Cell Distribution Width (test code = 54466-2) 12.5 11.7 -14.4 [facility] HospitalPlatelet Zviyu5477-75-77 14:49:00* Test Item Value Reference Range Interpretation Comments Platelet Count (test code = 777-3) 266 140-360 [facility] HospitalNeutrophils (%) (Auto)2019-04-28 14:49:00 * Test Item Value Reference Range Interpretation Comments Neutrophils (%) (Auto) (test code = 29930-1) 82.7 38.7-80.0 H [facility] HospitalLymphocytes (%) (Auto)2019-04-28 14:49:00 * Test Item Value Reference Range Interpretation Comments Lymphocytes (%) (Auto) (test code = 736-9) 10.5 18.0-39.1 L [facility] HospitalMonocytes (%) (Auto)2019-04-28 14:49:00* Test Item Value Reference Range Interpretation Comments Monocytes (%) (Auto) (test code = 5905-5) 5.4 4.4-11.3 [facility] HospitalEosinophils (%) (Auto)2019-04-28 14:49:00 * Test Item Value Reference Range Interpretation Comments Eosinophils (%) (Auto) (test code = 713-8) 0.5 0.0-6.0 [facility] HospitalBasophils (%) (Auto)2019-04-28 14:49:00* Test Item Value Reference Range Interpretation Comments Basophils (%) (Auto) (test code = 706-2) 0.5 0.0-1.0 [facility] HospitalIM GRANULOCYTES %2019-04-28 14:49:00* Test Item Value Reference Range Interpretation Comments IM GRANULOCYTES % (test code = IM GRANULOCYTES %) 0.4 0.0- 1.0 [facility] HospitalNeutrophils # (Auto)2019-04-28 14:49:00* Test Item Value Reference Range Interpretation Comments Neutrophils # (Auto) (test code = 751-8) 6.6 2.1-6.9 [facility] HospitalLymphocytes # (Auto)2019-04-28 14:49:00* Test Item Value Reference Range Interpretation Comments Lymphocytes # (Auto) (test code = 47412-0) 0.8 1.0-3.2 L [facility] HospitalMonocytes # (Auto)2019-04-28 14:49:00* Test Item Value Reference Range Interpretation Comments Monocytes # (Auto) (test code = 742-7) 0.4 0.2-0.8 [facility] HospitalEosinophils # (Auto)2019-04-28 14:49:00* Test Item Value Reference Range Interpretation Comments Eosinophils # (Auto) (test code = 711-2) 0.0 0.0-0.4 [facility] HospitalBasophils # (Auto)2019-04-28 14:49:00* Test Item Value Reference Range Interpretation Comments Basophils # (Auto) (test code = 704-7) 0.0 0.0-0.1 [facility] HospitalAbsolute Immature Granulocyte (auto 2019-04-28 14:49:00* Test Item Value Reference Range Interpretation Comments Absolute Immature Granulocyte (auto (lionel t code = Absolute Immature Granulocyte (auto) 0.03 0-0.1 [facility] HospitalURINALYSIS HYTIETUU8046-49-09 22:55:00* Test Item Value Reference Range Interpretation [...] A Urine Source? Clean CatchKNEE THREE VIEWS BGHSGASXE1112-98-79 14:30:[address] [address] Patient Name: SHARLENE MOORE MR #: [id number] : 1935 Age/Sex: 84/F Req #: [id number] Adm Physician: Ordered by: FAVIOLA BAEZ Report #: [id number] Location: [facility] Room/Bed: Procedure: [id number] DX/KN EE THREE VIEWS BILATERAL Exam Date: [...] BAEZ (NON STAFF) SP LUMBAR AP LATERAL 2-3VWS 2019-03-21 14:26:00 [address] [address] Patient Name: SHARLENE MOORE MR #: [id number] : 1935 Age/Sex: 84/F Req #: [id number] Adm Physician: Ordered by: FAVIOLA BAEZ Report #: [id number] Location: [facility] Room/Bed: Procedure: [id number] DX/SP LUMBAR AP LATERAL 2-3VWS Exam Date: 03/21/19 Exam Time: 1310 REPORT STATUS: Signed Exam: Lumbar spine series Clinical history: Back pain Findings: Ther e is no evidence [...] 2:27 PM Dictated By: JAEL QUIÑONES MD 1427 Transcribed By: JOHN on 03/21/191426 COPY TO: FAVIOLA RODRIGUEZ (NON STAFF) CERVICAL 3 ECNWR2700-86-72 14:23:00 [address] [address] Patient Name: SHARLENE MOORE MR #: [id number] : 1935 Age/Sex: 84/F Req #: [id number] Adm Physician: Ordered by: FAVIOLA BAEZ Report #: [id number] Location: [facility] Room/Bed: Procedure: [id number] DX/CE RVICAL 3 VIEWS Exam Date: 03/21/19 Exam Time: 1310 REPORT STATUS: Signed Exam: Cervi sunday spine series Clinical history: Neck pain Findings: There is no julian dence of acute fracture or malalignment. Mild degenerative changes are noted a t C5-6 and C7-T1 levels with loss in disc height. The prevertebral soft tissue is unremarkable. Impression: 1. No radiographic evidence of acute osseou s injury. Degenerative disc disease as described. Signed by: Dr. Darien herrera MD on 03/21/2019 2:24 PM Dictated By: JAEL QUIÑONES MD Electronical ly Signed By: JAEL QUIÑONES MD on 03/21/191423 Transcribed By: JOHN on 1423 COPY TO: FAVIOLA BAEZ (NON STAFF) CHEST SINGLE (PORTABLE)2019-02-10 20:14:00 [address] [address] Patient Name: SHARLENE MOORE MR #: [id number] : 1935 Age/Sex: 84/F Req #: [id number] [facility] Physician: Ordered by: EMILY ABDULLAHI MD Report #: [id number] Location: ER Room/Bed: Procedure: [id number] DX/C HEST SINGLE (PORTABLE) Exam Date: 02/10/19 Exam Time : 1844 REPORT STATUS: Signed Exa mination: Single AP [...] Comments Creatine Kinase MB (test code = 98301-6) 0.60 0-5.0 [facility] HospitalTroponin H0745-20-25 19:20:00* Test Item Value Reference Range Interpretation Comments Troponin I (test code = LMJ1776) < 0.001 0-0.300 [facility] HospitalThyroid Stimulating Hormone (TSH) 2019-02-10 19:20:00* Test Item Value Reference Range Interpretation Comments Thyroid Stimulating Hormone (TSH) (test code = 50207-4) 1.311 0.350-4.940 [facility] HospitalCreatine Kinase BP3387-38-14 19:20:00* Test Item Value Reference Range Interpretation Comments Creatine Kinase MB (test code = 28098-5) 0.60 0-5.0 [facility] HospitalTroponin W9078-62-36 19:20:00* Test Item Value Reference Range Interpretation Comments Troponin I (test code = SZW9108) < 0.001 0-0.300 [facility] HospitalThyroid Stimulating Hormone (TSH) 2019-02-10 19:20:00* Test Item Value Reference Range Interpretation Comments Thyroid Stimulating Hormone (TSH) (test code = 73380-5) 1.311 0.350-4.940 [facility] HospitalThyroid Stimulating Hormone (TSH) 2019-02-10 19:20:00* Test Item Value Reference Range Interpretation Comments Thyroid Stimulating Hormone (TSH) (test code = 97843-3) 1.311 0.350-4.940 [facility] Jwgan5335-00-70 18:57:00* Test Item Value Reference Range Interpretation Comments Sodium Level (test code = 2951-2) 137 136-145 [facility] HospitalPotassium Vwrjf5876-30-15 18:57:00* Test Item Value Reference Range Interpretation Comments Potassium Level (test code = 2823-3) 4.1 3.5-5.1 [facility] HospitalChloride Ygtiz9871-25-31 18:57:00* Test Item Value Reference Range Interpretation Comments Chloride Level (test code = 2075-0) 102 98-107 [facility] HospitalCarbon Dioxide Bowfo1077-08-21 18:57:00* Test Item Value Reference Range Interpretation Comments Carbon Dioxide Level (test code = 2028-9) 24 22-29 [facility] HospitalAnion Wxz0575-99-59 18:57:00* Test Item Value Reference Range Interpretation Comments Anion Gap (test code = 47755-9) 15.1 8-16 [facility] HospitalBlood Urea Audpwvok3783-15-13 18:57:00* Test Item Value Reference Range Interpretation Comments Blood Urea Nitrogen (test code = 3094-0) 11 7-26 [facility] HospitalCreatinine2019-08-05 18:57:00* Test Item Value Reference Range Interpretation Comments Creatinine (test code = 2160-0) 0.75 0.57-1.11 [facility] HospitalBUN/Creatinine Ixylg2059-18-32 18:57:00* Test Item Value Reference Range Interpretation Comments BUN/Creatinine Ratio (test code = 3097-3) 15 6-25 [facility] HospitalEstimat Glomerular Filtration Rate 2019-02-10 18:57:00* Test Item Value Reference Range Interpretation Comments Estimat Glomerular Filtration Rate (test code = 741444800) > 60 >60 Ranges were taken from the National Kidney Disease Education Program and the [facility] literature.Reference ranges:60 or greater: Bieibg67-26 ( for 3 consecutive months): Chronic kidney disease 15 or less: Kidney failureMemorial Hermann Cyp[facility] HospitalGlucose Tssji3692-41-36 18:57:00* Test Item Value Reference Range Interpretation Comments Glucose Level (test code = CTH7021) 103 74-118 [facility] HospitalCalcium Cskvo5853-87-18 18:57:00* Test Item Value Reference Range Interpretation Comments Calcium Level (test code = 38714-7) 9.1 8.4-10.2 [facility] HospitalTotal Haxqphken7453-03-00 18:57:00* Test Item Value Reference Range Interpretation Comments Total Bilirubin (test code = 1975-2) 0.2 0.2-1.2 [facility] HospitalAspartate Amino Transf (AST/SGOT) 2019-02-10 18:57:00* Test Item Value Reference Range Interpretation Comments Aspartate Amino Transf (AST/SGOT) (test code = Aspartate Amino Transf (AST/SGOT)) 19 5-34 [facility] HospitalAlanine Aminotransferase (ALT/SGPT) 2019-02-10 18:57:00* Test Item Value Reference Range Interpretation Comments Alanine Aminotransferase (ALT/SGPT) (test code = 1742-6) 12 0-55 [facility] HospitalTotal Ognkzdh9911-31-79 18:57:00* Test Item Value Reference Range Interpretation Comments Total Protein (test code = 2885-2) 6.9 6.5-8.1 [facility] HospitalAlbumin2019-08-05 18:57:00* Test Item Value Reference Range Interpretation Comments Albumin (test code = 1751-7) 3.5 3.5-5.0 [facility] HospitalGlobulin2019-08-05 18:57:00* Test Item Value Reference Range Interpretation Comments Globulin (test code = 62432-5) 3.4 2.3-3.5 [facility] HospitalAlbumin/Globulin Kfdgy1429-43-50 18:57:00 * Test Item Value Reference Range Interpretation Comments Albumin/Globulin Ratio (test code = 1759-0) 1.0 0.8-2.0 [facility] HospitalAlkaline Wotalljwpyn4098-53-37 18:57:00* Test Item Value Reference Range Interpretation Comments Alkaline Phosphatase (test code = 6768-6) 85 40-150 [facility] HospitalCreatine Qoaavq0183-36-19 18:57:00* Test Item Value Reference Range Interpretation Comments Creatine Kinase (test code = 2157-6) 37 29-168 [facility] HospitalTotal Actwjhtav8731-70-41 18:57:00* Test Item Value Reference Range Interpretation Comments Total Bilirubin (test code = 1975-2) 0.2 0.2-1.2 [facility] HospitalAspartate Amino Transf (AST/SGOT) 2019-02-10 18:57:00* Test Item Value Reference Range Interpretation Comments Aspartate Amino Transf (AST/SGOT) (test code = Aspartate Amino Transf (AST/SGOT)) 19 5-34 [facility] HospitalAlanine Aminotransferase (ALT/SGPT) 2019-02-10 18:57:00* Test Item Value Reference Range Interpretation Comments Alanine Aminotransferase (ALT/SGPT) (test code = 1742-6) 12 0-55 [facility] HospitalTotal Kuxcqyw7980-22-10 18:57:00* Test Item Value Reference Range Interpretation Comments Total Protein (test code = 2885-2) 6.9 6.5-8.1 [facility] HospitalAlbumin2019-08-05 18:57:00* Test Item Value Reference Range Interpretation Comments Albumin (test code = 1751-7) 3.5 3.5-5.0 [facility] HospitalGlobulin2019-08-05 18:57:00* Test Item Value Reference Range Interpretation Comments Globulin (test code = 97723-4) 3.4 2.3-3.5 [facility] HospitalAlbumin/Globulin Mzvky5080-40-65 18:57:00 * Test Item Value Reference Range Interpretation Comments Albumin/Globulin Ratio (test code = 1759-0) 1.0 0.8-2.0 [facility] HospitalAlkaline Vtmvdvnbeex3053-38-30 18:57:00* Test Item Value Reference Range Interpretation Comments Alkaline Phosphatase (test code = 6768-6) 85 40-150 [facility] HospitalCreatine Vrbopu4226-04-86 18:57:00* Test Item Value Reference Range Interpretation Comments Creatine Kinase (test code = 2157-6) 37 29-168 [facility] HospitalProthrombin Nuin5435-80-46 18:49:00* Test Item Value Reference Range Interpretation Comments Prothrombin Time (test code = 5902-2) 12.1 11.9-14.5 [facility] HospitalProthromb Time International Ratio 2019-02-10 18:49:00* Test Item Value Reference Range Interpretation Comments Prothromb Time International Ratio (test code = 6301-6) 0.85 Oral Anticoagulant Therapy INR Values:1. Low Intensity Therapy 1.5 - 2.02 . Moderate Intensity Therapy 2.0 - 3.03. High Intensity Therapy(1) 2.5 - 3. 54. High Intensity Therapy(2) 3.0 - 4.05. Panic Value INR > 5.0 [facility] HospitalActivated Partial Thromboplast Time 2019-02-10 18:49:00* Test Item Value Reference Range Interpretation Comments Activated Partial Thromboplast Time (test code = 82757-4) 29.7 23.8-35.5 [facility] HospitalProthrombin Jlom8070-28-69 18:49:00* Test Item Value Reference Range Interpretation Comments Prothrombin Time (test code = 5902-2) 12.1 11.9-14.5 [facility] HospitalProthromb Time International Ratio 2019-02-10 18:49:00* Test Item Value Reference Range Interpretation Comments Prothromb Time International Ratio (test code = 6301-6) 0.85 Oral Anticoagulant Therapy INR Values:1. Low Intensity Therapy 1.5 - 2.02 . Moderate Intensity Therapy 2.0 - 3.03. High Intensity Therapy(1) 2.5 - 3. 54. High Intensity Therapy(2) 3.0 - 4.05. Panic Value INR > 5.0 [facility] HospitalActivated Partial Thromboplast Time 2019-02-10 18:49:00* Test Item Value Reference Range Interpretation Comments Activated Partial Thromboplast Time (test code = 75121-2) 29.7 23.8-35.5 [facility] HospitalProthrombin Kypf9269-50-55 18:49:00* Test Item Value Reference Range Interpretation Comments Prothrombin Time (test code = 5902-2) 12.1 11.9-14.5 [facility] HospitalProthromb Time International Ratio 2019-02-10 18:49:00* Test Item Value Reference Range Interpretation Comments Prothromb Time International Ratio (test code = 6301-6) 0.85 Oral Anticoagulant Therapy INR Values:1. Low Intensity Therapy 1.5 - 2.02 . Moderate Intensity Therapy 2.0 - 3.03. High Intensity Therapy(1) 2.5 - 3. 54. High Intensity Therapy(2) 3.0 - 4.05. Panic Value INR > 5.0 [facility] HospitalActivated Partial Thromboplast Time 2019-02-10 18:49:00* Test Item Value Reference Range Interpretation Comments Activated Partial Thromboplast Time (test code = 07168-9) 29.7 23.8-35.5 [facility] HospitalWhite Blood Vrokx4087-50-80 18:44:00* Test Item Value Reference Range Interpretation Comments White Blood Count (test code = 6690-2) 6.37 4.8-10.8 [facility] HospitalRed Blood Gueyu3006-76-47 18:44:00* Test Item Value Reference Range Interpretation Comments Red Blood Count (test code = 789-8) 3.68 3.6-5.1 [facility] HospitalHemoglobin2019-08-05 18:44:00* Test Item Value Reference Range Interpretation Comments Hemoglobin (test code = 75561-7) 11.6 12.0-16.0 L [facility] HospitalHematocrit2019-08-05 18:44:00* Test Item Value Reference Range Interpretation Comments Hematocrit (test code = 4544-3) 35.3 34.2-44.1 [facility] HospitalMean Corpuscular Ooblwv0951-42-31 18:44:00* Test Item Value Reference Range Interpretation Comments Mean Corpuscular Volume (test code = 787-2) 95.9 81-99 [facility] HospitalMean Corpuscular Jpupwyhxph0525-68-77 18:44:00* Test Item Value Reference Range Interpretation Comments Mean Corpuscular Hemoglobin (test code = 785-6) 31.5 28-32 [facility] HospitalMean Corpuscular Hemoglobin Concent 2019-02-10 18:44:00* Test Item Value Reference Range Interpretation Comments Mean Corpuscular Hemoglobin Concent (test code = 786-4) 32.9 31-35 [facility] HospitalRed Cell Distribution Qsafq1257-23-18 18:44:00* Test Item Value Reference Range Interpretation Comments Red Cell Distribution Width (test code = 67434-1) 12.2 11.7 -14.4 [facility] HospitalPlatelet Kgkro2924-15-56 18:44:00* Test Item Value Reference Range Interpretation Comments Platelet Count (test code = 777-3) 265 140-360 [facility] HospitalNeutrophils (%) (Auto)2019-02-10 18:44:00 * Test Item Value Reference Range Interpretation Comments Neutrophils (%) (Auto) (test code = 69885-3) 77.2 38.7-80.0 [facility] HospitalLymphocytes (%) (Auto)2019-02-10 18:44:00 * Test Item Value Reference Range Interpretation Comments Lymphocytes (%) (Auto) (test code = 736-9) 12.9 18.0-39.1 L [facility] HospitalMonocytes (%) (Auto)2019-02-10 18:44:00* Test Item Value Reference Range Interpretation Comments Monocytes (%) (Auto) (test code = 5905-5) 7.8 4.4-11.3 [facility] HospitalEosinophils (%) (Auto)2019-02-10 18:44:00 * Test Item Value Reference Range Interpretation Comments Eosinophils (%) (Auto) (test code = 713-8) 1.3 0.0-6.0 [facility] HospitalBasophils (%) (Auto)2019-02-10 18:44:00* Test Item Value Reference Range Interpretation Comments Basophils (%) (Auto) (test code = 706-2) 0.5 0.0-1.0 [facility] HospitalIM GRANULOCYTES %2019-02-10 18:44:00* Test Item Value Reference Range Interpretation Comments IM GRANULOCYTES % (test code = IM GRANULOCYTES %) 0.3 0.0- 1.0 [facility] HospitalNeutrophils # (Auto)2019-02-10 18:44:00* Test Item Value Reference Range Interpretation Comments Neutrophils # (Auto) (test code = 751-8) 4.9 2.1-6.9 [facility] HospitalLymphocytes # (Auto)2019-02-10 18:44:00* Test Item Value Reference Range Interpretation Comments Lymphocytes # (Auto) (test code = 65479-2) 0.8 1.0-3.2 L [facility] HospitalMonocytes # (Auto)2019-02-10 18:44:00* Test Item Value Reference Range Interpretation Comments Monocytes # (Auto) (test code = 742-7) 0.5 0.2-0.8 [facility] HospitalEosinophils # (Auto)2019-02-10 18:44:00* Test Item Value Reference Range Interpretation Comments Eosinophils # (Auto) (test code = 711-2) 0.1 0.0-0.4 [facility] HospitalBasophils # (Auto)2019-02-10 18:44:00* Test Item Value Reference Range Interpretation Comments Basophils # (Auto) (test code = 704-7) 0.0 0.0-0.1 [facility] HospitalAbsolute Immature Granulocyte (auto 2019-02-10 18:44:00* Test Item Value Reference Range Interpretation Comments Absolute Immature Granulocyte (auto (lionel t code = Absolute Immature Granulocyte (auto) 0.02 0-0.1 [facility] HospitalUrine KUI0791-60-58 18:33:00* Test Item Value Reference Range Interpretation Comments Urine WBC (test code = 5821-4) 0-5 0-5 [facility] HospitalUrine HVV9786-72-05 18:33:00* Test Item Value Reference Range Interpretation Comments Urine RBC (test code = 81882-8) 0-5 0-5 [facility] HospitalUrine Cbvoowdy2521-03-62 18:33:00* Test Item Value Reference Range Interpretation Comments Urine Bacteria (test code = 95210-5) RARE NONE [facility] HospitalUrine Epithelial Wnjqj9773-59-94 18:33:00 * Test Item Value Reference Range Interpretation Comments Urine Epithelial Cells (test code = 47566-3) NONE NONE [facility] HospitalUrine Pkxpj5760-67-09 18:08:00* Test Item Value Reference Range Interpretation Comments Urine Color (test code = 5778-6) YELLOW YELLOW [facility] HospitalUrine Xpbfpus9802-05-91 18:08:00* Test Item Value Reference Range Interpretation Comments Urine Clarity (test code = 85135-9) CLEAR CLEAR [facility] HospitalUrine Specific Jpadwsf4823-39-55 18:08:00 * Test Item Value Reference Range Interpretation Comments Urine Specific [place] (test code = 5811-5) 1.005 1.010-1.02 5 L [facility] HospitalUrine zP7179-55-53 18:08:00* Test Item Value Reference Range Interpretation Comments Urine pH (test code = 21395-0) 7 5-7 [facility] HospitalUrine Leukocyte Giycocsl3551-78-85 18:08:00* Test Item Value Reference Range Interpretation Comments Urine Leukocyte Esterase (test code = 5799-2) [facility]ACE NEGATIVE [facility] Snmdeno7820-31-49 18:08:00* Test Item Value Reference Range Interpretation Comments Urine Nitrite (test code = 43747-4) NEGATIVE NEGATIVE [facility] HospitalUrine Xnrqpme1333-18-66 18:08:00* Test Item Value Reference Range Interpretation Comments Urine Protein (test code = 5804-0) NEGATIVE NEGATIVE [facility] HospitalUrine Glucose (UA)2019-02-10 18:08:00* Test Item Value Reference Range Interpretation Comments Urine Glucose (UA) (test code = 2349-9) NEGATIVE NEGATIVE [facility] HospitalUrine Lqvjzkr3280-21-75 18:08:00* Test Item Value Reference Range Interpretation Comments Urine Ketones (test code = 09108-9) NEGATIVE NEGATIVE [facility] HospitalUrine Hizzzepxbnnc7291-97-32 18:08:00* Test Item Value Reference Range Interpretation Comments Urine Urobilinogen (test code = 43237-1) 0.2 0.2-1 [facility] HospitalUrine Ywtdmkbur0872-14-33 18:08:00* Test Item Value Reference Range Interpretation Comments Urine Bilirubin (test code = 1978-6) NEGATIVE NEGATIVE [facility] HospitalUrine Zukar7064-87-91 18:08:00* Test Item Value Reference Range Interpretation Comments Urine Blood (test code = 37742-8) TRACE NEGATIVE [facility] CenterURINAL[facility]IS TGLFSEJO4398-57-86 12:37:00* Test Item Value Reference Range Interpretation [...] per HPF NONE Urine Source? Clean CatchURINALYSIS EYBMLURM0639-71-96 12:29:00* Test Item Value Reference Range Interpretation [...] per HPF NONE Urine Source? Clean CatchBedside Ntraxiq2822-38-08 08:01:00* Test Item Value Reference Range Interpretation Comments Bedside Glucose (test code = 26691-5) 115 70-120 Meter ID: [id number] [facility] Glucose 2018-08-29 08:01:00* Test Item Value Reference Range Interpretation Comments Bedside Glucose (test code = 44962-2) 115 70-120 Meter ID: [id number] [facility]LV[facility] WO 2018-08-11 17:09:00 [facility] [address] [address] Patient Name: SHARLENE MOORE MR #: [id number] : 1935 Age/Sex: 83/F Req #: [id number] Adm Physician: Ordered by: DAVIDA ENAMORADO MD Report #: [id number] Location: ER Room/Bed: Procedure: [id number] CT /CT ABDOMEN/PELVIS WO Exam Date: 08/11/18 Exam Time: 1642 REPORT STATUS: Signed EXAM : CT Abdomen and Pelvis WITHOUT contrast INDICATION: [...] 08/11/181712 COPY TO: DAVIDA ENAMORADO MD Sodium Xikot3836-36-78 16:07:00* Test Item Value Reference Range Interpretation Comments Sodium Level (test code = 2951-2) 139 136-145 [facility] HospitalPotassium Sgwbo8328-64-95 16:07:00* Test Item Value Reference Range Interpretation Comments Potassium Level (test code = 2823-3) 4.0 3.5-5.1 [facility] HospitalChloride Paipc1811-66-25 16:07:00* Test Item Value Reference Range Interpretation Comments Chloride Level (test code = 2075-0) 102 98-107 [facility] HospitalCarbon Dioxide Igjex6098-68-81 16:07:00* Test Item Value Reference Range Interpretation Comments Carbon Dioxide Level (test code = 2028-9) 26 22-29 [facility] HospitalAnion Bmg4337-00-30 16:07:00* Test Item Value Reference Range Interpretation Comments Anion Gap (test code = 53689-4) 15.0 8-16 [facility] HospitalBlood Urea Xhdwnqta1988-62-60 16:07:00* Test Item Value Reference Range Interpretation Comments Blood Urea Nitrogen (test code = 3094-0) 8 7-26 [facility] HospitalCreatinine2019-02-03 16:07:00* Test Item Value Reference Range Interpretation Comments Creatinine (test code = 2160-0) 0.75 0.57-1.11 [facility] HospitalBUN/Creatinine Bzuxp1832-34-48 16:07:00* Test Item Value Reference Range Interpretation Comments BUN/Creatinine Ratio (test code = 3097-3) 11 6-25 [facility] HospitalEstimat Glomerular Filtration Rate 2018-08-11 16:07:00* Test Item Value Reference Range Interpretation Comments Estimat Glomerular Filtration Rate (test code = 949897464) > 60 >60 Ranges were taken from the National Kidney Disease Education Program and the [facility] Kidney Foundation literature.Reference ranges:60 or greater: Dsqaqb25-73 ( for 3 consecutive months): Chronic kidney disease 15 or less: Kidney failureMemorial Hermann Cypress HospitalGlucose Vpouy8655-19-48 16:07:00* Test Item Value Reference Range Interpretation Comments Glucose Level (test code = YDH1704) 100 74-118 [facility] HospitalCalcium Sbhcp4085-97-01 16:07:00* Test Item Value Reference Range Interpretation Comments Calcium Level (test code = 49053-1) 9.3 8.4-10.2 [facility] HospitalTotal Zfgdqjbyl7034-28-09 16:07:00* Test Item Value Reference Range Interpretation Comments Total Bilirubin (test code = 1975-2) 0.4 0.2-1.2 [facility] HospitalAspartate Amino Transf (AST/SGOT) 2018-08-11 16:07:00* Test Item Value Reference Range Interpretation Comments Aspartate Amino Transf (AST/SGOT) (test code = Aspartate Amino Transf (AST/SGOT)) 28 5-34 [facility] HospitalAlanine Aminotransferase (ALT/SGPT) 2018-08-11 16:07:00* Test Item Value Reference Range Interpretation Comments Alanine Aminotransferase (ALT/SGPT) (test code = 1742-6) 22 0-55 [facility] HospitalTotal Jakvvic8466-39-36 16:07:00* Test Item Value Reference Range Interpretation Comments Total Protein (test code = 2885-2) 7.1 6.5-8.1 [facility] HospitalAlbumin2019-02-03 16:07:00* Test Item Value Reference Range Interpretation Comments Albumin (test code = 1751-7) 4.1 3.5-5.0 [facility] HospitalGlobulin2019-02-03 16:07:00* Test Item Value Reference Range Interpretation Comments Globulin (test code = 96880-5) 3.0 2.3-3.5 [facility] HospitalAlbumin/Globulin Gupnk4614-50-47 16:07:00 * Test Item Value Reference Range Interpretation Comments Albumin/Globulin Ratio (test code = 1759-0) 1.4 0.8-2.0 [facility] HospitalAlkaline Kkngnnvpsna1709-63-43 16:07:00* Test Item Value Reference Range Interpretation Comments Alkaline Phosphatase (test code = 6768-6) 69 40-150 [facility] HospitalUrine PXU2175-90-87 16:03:00* Test Item Value Reference Range Interpretation Comments Urine WBC (test code = 5821-4) 11-20 0-5 H [facility] HospitalUrine MFN5883-27-15 16:03:00* Test Item Value Reference Range Interpretation Comments Urine RBC (test code = 38574-0) 0-5 0-5 [facility] HospitalUrine Peowmdnm6139-78-86 16:03:00* Test Item Value Reference Range Interpretation Comments Urine Bacteria (test code = 68800-0) FEW NONE [facility] HospitalUrine Epithelial Jpvhe7103-16-81 16:03:00 * Test Item Value Reference Range Interpretation Comments Urine Epithelial Cells (test code = 93356-8) FEW NONE [facility] HospitalUrine Nayry4252-65-06 15:59:00* Test Item Value Reference Range Interpretation Comments Urine Color (test code = 5778-6) YELLOW YELLOW [facility] HospitalUrine Uidsasg1374-13-17 15:59:00* Test Item Value Reference Range Interpretation Comments Urine Clarity (test code = 40061-4) CLEAR CLEAR [facility] HospitalUrine Specific Dmlbgbj4323-37-53 15:59:00 * Test Item Value Reference Range Interpretation Comments Urine Specific [place] (test code = 5811-5) 1.000 1.010-1.02 5 L [facility] HospitalUrine wB1818-23-33 15:59:00* Test Item Value Reference Range Interpretation Comments Urine pH (test code = 46358-6) 7 5-7 [facility] Leukocyte Ioqiosaq2710-19-17 15:59:00* Test Item Value Reference Range Interpretation Comments Urine Leukocyte Esterase (test code = 5799-2) 1+ NEGATIVE H [facility] Mghtslj3442-48-86 15:59:00* Test Item Value Reference Range Interpretation Comments Urine Nitrite (test code = 55935-6) NEGATIVE NEGATIVE [facility] Axhbusr1273-34-59 15:59:00* Test Item Value Reference Range Interpretation Comments Urine Protein (test code = 5804-0) NEGATIVE NEGATIVE [facility] Glucose (UA)2018-08-11 15:59:00* Test Item Value Reference Range Interpretation Comments Urine Glucose (UA) (test code = 2349-9) NEGATIVE NEGATIVE [facility] Zutueva6088-48-88 15:59:00* Test Item Value Reference Range Interpretation Comments Urine Ketones (test code = 59769-4) NEGATIVE NEGATIVE [facility] Pzmrqenaremj3788-88-17 15:59:00* Test Item Value Reference Range Interpretation Comments Urine Urobilinogen (test code = 79991-1) 0.2 0.2-1 [facility] HospitalUrine Pivkbxvhz5492-08-92 15:59:00* Test Item Value Reference Range Interpretation Comments Urine Bilirubin (test code = 1978-6) NEGATIVE NEGATIVE [facility] Pkxzw2921-84-26 15:59:00* Test Item Value Reference Range Interpretation Comments Urine Blood (test code = 93436-2) NEGATIVE NEGATIVE [facility] HospitalWhite Blood Krflt1990-99-42 15:53:00* Test Item Value Reference Range Interpretation Comments White Blood Count (test code = 6690-2) 6.17 4.8-10.8 [facility] HospitalRed Blood Srxmo0853-77-73 15:53:00* Test Item Value Reference Range Interpretation Comments Red Blood Count (test code = 789-8) 3.77 3.6-5.1 [facility] HospitalHemoglobin2019-02-03 15:53:00* Test Item Value Reference Range Interpretation Comments Hemoglobin (test code = 60206-8) 12.6 12.0-16.0 [facility] HospitalHematocrit2019-02-03 15:53:00* Test Item Value Reference Range Interpretation Comments Hematocrit (test code = 4544-3) 35.8 34.2-44.1 [facility] HospitalMean Corpuscular Nxdrfx5255-03-66 15:53:00* Test Item Value Reference Range Interpretation Comments Mean Corpuscular Volume (test code = 787-2) 95.0 81-99 [facility] HospitalMean Corpuscular Qjgavzoyky5480-71-90 15:53:00* Test Item Value Reference Range Interpretation Comments Mean Corpuscular Hemoglobin (test code = 785-6) 33.4 28-32 H [facility] HospitalMean Corpuscular Hemoglobin Concent 2018-08-11 15:53:00* Test Item Value Reference Range Interpretation Comments Mean Corpuscular Hemoglobin Concent (test code = 786-4) 35.2 31-35 H [facility] HospitalRed Cell Distribution Morui5122-26-33 15:53:00* Test Item Value Reference Range Interpretation Comments Red Cell Distribution Width (test code = 49274-6) 12.4 11.7 -14.4 [facility] HospitalPlatelet Qrtre9724-10-74 15:53:00* Test Item Value Reference Range Interpretation Comments Platelet Count (test code = 777-3) 266 140-360 [facility] HospitalNeutrophils (%) (Auto)2018-08-11 15:53:00 * Test Item Value Reference Range Interpretation Comments Neutrophils (%) (Auto) (test code = 53964-6) 77.1 38.7-80.0 [facility] HospitalLymphocytes (%) (Auto)2018-08-11 15:53:00 * Test Item Value Reference Range Interpretation Comments Lymphocytes (%) (Auto) (test code = 736-9) 14.1 18.0-39.1 L [facility] HospitalMonocytes (%) (Auto)2018-08-11 15:53:00* Test Item Value Reference Range Interpretation Comments Monocytes (%) (Auto) (test code = 5905-5) 6.6 4.4-11.3 [facility] HospitalEosinophils (%) (Auto)2018-08-11 15:53:00 * Test Item Value Reference Range Interpretation Comments Eosinophils (%) (Auto) (test code = 713-8) 1.1 0.0-6.0 [facility] HospitalBasophils (%) (Auto)2018-08-11 15:53:00* Test Item Value Reference Range Interpretation Comments Basophils (%) (Auto) (test code = 706-2) 0.8 0.0-1.0 [facility] HospitalIM GRANULOCYTES %2018-08-11 15:53:00* Test Item Value Reference Range Interpretation Comments IM GRANULOCYTES % (test code = IM GRANULOCYTES %) 0.3 0.0- 1.0 [facility] HospitalNeutrophils # (Auto)2018-08-11 15:53:00* Test Item Value Reference Range Interpretation Comments Neutrophils # (Auto) (test code = 751-8) 4.8 2.1-6.9 [facility] HospitalLymphocytes # (Auto)2018-08-11 15:53:00* Test Item Value Reference Range Interpretation Comments Lymphocytes # (Auto) (test code = 92659-2) 0.9 1.0-3.2 L [facility] HospitalMonocytes # (Auto)2018-08-11 15:53:00* Test Item Value Reference Range Interpretation Comments Monocytes # (Auto) (test code = 742-7) 0.4 0.2-0.8 [facility] HospitalEosinophils # (Auto)2018-08-11 15:53:00* Test Item Value Reference Range Interpretation Comments Eosinophils # (Auto) (test code = 711-2) 0.1 0.0-0.4 [facility] HospitalBasophils # (Auto)2018-08-11 15:53:00* Test Item Value Reference Range Interpretation Comments Basophils # (Auto) (test code = 704-7) 0.1 0.0-0.1 [facility] HospitalAbsolute Immature Granulocyte (auto 2018-08-11 15:53:00* Test Item Value Reference Range Interpretation Comments Absolute Immature Granulocyte (auto (lionel t code = Absolute Immature Granulocyte (auto) 0.02 0-0.1 [facility] HospitalBONE DXA DUAL IBSYKL0148-36-88 15:50:00 [facility] [address] [place] [address] Patient Name: SHARLENE MOORE MR #: [id number] : 3 Age/Sex: 83/F Req #: [id number] Adm Physician: Ordered by: LIGIA WEST DO Report #: [id number] Location: DX Room/Bed: Procedure: [id number] DX/B ONE DXA DUAL ENERGY Exam Date: Exam Time: REPORT STATUS: Signed EXAM: BONE MINERA L DENSITY HISTORY: Bone mineralization evaluation COMPARISON: None DISCU SSION: Evaluation of the left hip and lumbar spine was performed utilizing [employer] Hologic bone densitometer. The study is technically [...] mineral density: 0.95 gm/cm2, T-score is -0.9, Z-scor e is 1.9. Impression: Bone mineralization by WHO Classification is nor mal, the fracture risk is not increased. Signed by: Edilberto Alcala on 08/05/2018 3:51 PM Dictated By: ALMA ROSA LUNA MD 50 Transcribed By: JOHN on 1550 COPY TO: LIGIA WEST DO Urine Yldqeqjraq1222-95-54 22:38:00* Test Item Value Reference Range Interpretation Comments Urine Osmolality (test code = 2695-5) 136 . 24 hr : 300 - 900 Random: 50 - 1400 After 12hr fluid restriction: >850Performed at: HD - [facility] [address] [id number] Director: Lauri Read MD, Phone: [phone] Hermann [facility] HospitalUrine Osmolality 2018-07-22 22:38:00* Test Item Value Reference Range Interpretation Comments Urine Osmolality (test code = 2695-5) 136 . 24 hr : 300 - 900 Random: 50 - 1400 After 12hr fluid restriction: >850Performed at: HD - [facility] [address] [id number] Director: Lauir Read MD, Phone: [phone] Hermann [facility] HospitalUrine Osmolality 2018-07-22 22:38:00* Test Item Value Reference Range Interpretation Comments Urine Osmolality (test code = 2695-5) 136 . 24 hr : 300 - 900 Random: 50 - 1400 After 12hr fluid restriction: >850Performed at: HD - [facility] [address] [id number] Director: Lauri Read MD, Phone: [phone] Hermann Cyp[facility] HospitalBedside Glucose 2018-07-21 11:40:00* Test Item Value Reference Range Interpretation Comments Bedside Glucose (test code = 62617-3) 145 70-120 H Meter ID: [id number] Hermann Cypress HospitalBedside Glucose 2018-07-21 11:40:00* Test Item Value Reference Range Interpretation Comments Bedside Glucose (test code = 61882-0) 145 70-120 H Meter ID: [id number]. Luke's Health [facility] Lufkinodium Level 2018-07-21 06:52:00* Test Item Value Reference Range Interpretation Comments Sodium Level (test code = 2951-2) 137 136-145 [facility] HospitalPotassium Wfhki2870-18-95 06:52:00* Test Item Value Reference Range Interpretation Comments Potassium Level (test code = 2823-3) 4.2 3.5-5.1 [facility] HospitalChloride Ipeod0233-95-36 06:52:00* Test Item Value Reference Range Interpretation Comments Chloride Level (test code = 2075-0) 104 98-107 [facility] HospitalCarbon Dioxide Mwtpq4596-65-67 06:52:00* Test Item Value Reference Range Interpretation Comments Carbon Dioxide Level (test code = 2028-9) 24 22-29 [facility] HospitalAnion Bgs8852-58-87 06:52:00* Test Item Value Reference Range Interpretation Comments Anion Gap (test code = 04820-7) 13.2 8-16 [facility] HospitalBlood Urea Lwerhzke0088-00-75 06:52:00* Test Item Value Reference Range Interpretation Comments Blood Urea Nitrogen (test code = 3094-0) 13 7-26 [facility] HospitalCreatinine2019-01-13 06:52:00* Test Item Value Reference Range Interpretation Comments Creatinine (test code = 2160-0) 0.72 0.57-1.11 [facility] HospitalBUN/Creatinine Qufew9555-82-73 06:52:00* Test Item Value Reference Range Interpretation Comments BUN/Creatinine Ratio (test code = 3097-3) 18 6-25 [facility] HospitalEstimat Glomerular Filtration Rate 2018-07-21 06:52:00* Test Item Value Reference Range Interpretation Comments Estimat Glomerular Filtration Rate (test code = 159563700) > 60 >60 Ranges were taken from the National Kidney Disease Education Program and the [facility] Kid[facility] Foundation literature.Reference ranges:60 or greater: Fznfnl48-28 ( for 3 consecutive months): Chronic kidney disease 15 or less: Kidney failureMemorial Hermann Cypress HospitalGlucose Nnnbf5147-54-89 06:52:00* Test Item Value Reference Range Interpretation Comments Glucose Level (test code = STJ4682) 104 74-118 [facility] HospitalCalcium Ntfkd9217-72-51 06:52:00* Test Item Value Reference Range Interpretation Comments Calcium Level (test code = 99574-8) 9.3 8.4-10.2 [facility] HospitalWhite Blood Smupq2828-51-11 06:27:00* Test Item Value Reference Range Interpretation Comments White Blood Count (test code = 6690-2) 7.61 4.8-10.8 [facility] HospitalRed Blood Yxtmb8097-95-56 06:27:00* Test Item Value Reference Range Interpretation Comments Red Blood Count (test code = 789-8) 3.88 3.6-5.1 [facility] HospitalHemoglobin2019-01-13 06:27:00* Test Item Value Reference Range Interpretation Comments Hemoglobin (test code = 45240-0) 12.6 12.0-16.0 [facility] HospitalHematocrit2019-01-13 06:27:00* Test Item Value Reference Range Interpretation Comments Hematocrit (test code = 4544-3) 37.6 34.2-44.1 [facility] HospitalMean Corpuscular Vyjpqk8155-52-40 06:27:00* Test Item Value Reference Range Interpretation Comments Mean Corpuscular Volume (test code = 787-2) 96.9 81-99 [facility] HospitalMean Corpuscular Wxlqvhkxqn5333-11-96 06:27:00* Test Item Value Reference Range Interpretation Comments Mean Corpuscular Hemoglobin (test code = 785-6) 32.5 28-32 H [facility] HospitalMean Corpuscular Hemoglobin Concent 2018-07-21 06:27:00* Test Item Value Reference Range Interpretation Comments Mean Corpuscular Hemoglobin Concent (test code = 786-4) 33.5 31-35 [facility] HospitalRed Cell Distribution Clshg4063-72-94 06:27:00* Test Item Value Reference Range Interpretation Comments Red Cell Distribution Width (test code = 87334-1) 12.3 11.7 -14.4 [facility] HospitalPlatelet Duvho7905-01-74 06:27:00* Test Item Value Reference Range Interpretation Comments Platelet Count (test code = 777-3) 265 140-360 [facility] HospitalNeutrophils (%) (Auto)2018-07-21 06:27:00 * Test Item Value Reference Range Interpretation Comments Neutrophils (%) (Auto) (test code = 45949-8) 67.6 38.7-80.0 [facility] HospitalLymphocytes (%) (Auto)2018-07-21 06:27:00 * Test Item Value Reference Range Interpretation Comments Lymphocytes (%) (Auto) (test code = 736-9) 17.6 18.0-39.1 L [facility] HospitalMonocytes (%) (Auto)2018-07-21 06:27:00* Test Item Value Reference Range Interpretation Comments Monocytes (%) (Auto) (test code = 5905-5) 11.7 4.4-11.3 H [facility] HospitalEosinophils (%) (Auto)2018-07-21 06:27:00 * Test Item Value Reference Range Interpretation Comments Eosinophils (%) (Auto) (test code = 713-8) 2.0 0.0-6.0 [facility] HospitalBasophils (%) (Auto)2018-07-21 06:27:00* Test Item Value Reference Range Interpretation Comments Basophils (%) (Auto) (test code = 706-2) 0.8 0.0-1.0 [facility] HospitalIM GRANULOCYTES %2018-07-21 06:27:00* Test Item Value Reference Range Interpretation Comments IM GRANULOCYTES % (test code = IM GRANULOCYTES %) 0.3 0.0- 1.0 [facility] HospitalNeutrophils # (Auto)2018-07-21 06:27:00* Test Item Value Reference Range Interpretation Comments Neutrophils # (Auto) (test code = 751-8) 5.2 2.1-6.9 [facility] HospitalLymphocytes # (Auto)2018-07-21 06:27:00* Test Item Value Reference Range Interpretation Comments Lymphocytes # (Auto) (test code = 85201-8) 1.3 1.0-3.2 [facility] HospitalMonocytes # (Auto)2018-07-21 06:27:00* Test Item Value Reference Range Interpretation Comments Monocytes # (Auto) (test code = 742-7) 0.9 0.2-0.8 H [facility] HospitalEosinophils # (Auto)2018-07-21 06:27:00* Test Item Value Reference Range Interpretation Comments Eosinophils # (Auto) (test code = 711-2) 0.2 0.0-0.4 [facility] HospitalBasophils # (Auto)2018-07-21 06:27:00* Test Item Value Reference Range Interpretation Comments Basophils # (Auto) (test code = 704-7) 0.1 0.0-0.1 [facility] HospitalAbsolute Immature Granulocyte (auto 2018-07-21 06:27:00* Test Item Value Reference Range Interpretation Comments Absolute Immature Granulocyte (auto (lionel t code = Absolute Immature Granulocyte (auto) 0.02 0-0.1 [facility] HospitalUrine Random Mjvozr0670-24-07 07:45:00* Test Item Value Reference Range Interpretation Comments Urine Random Sodium (test code = 2955-3) 38 [facility] HospitalUrine Random Kkbpby2463-75-34 07:45:00* Test Item Value Reference Range Interpretation Comments Urine Random Sodium (test code = 2955-3) 38 [facility] HospitalUrine Random Kwdiuz0351-84-62 07:45:00* Test Item Value Reference Range Interpretation Comments Urine Random Sodium (test code = 2955-3) 38 [facility] HospitalUrine Random Xpkkmj7614-49-46 07:45:00* Test Item Value Reference Range Interpretation Comments Urine Random Sodium (test code = 2955-3) 38 [facility] HospitalTotal Dftjviyac5153-93-18 06:14:00* Test Item Value Reference Range Interpretation Comments Total Bilirubin (test code = 1975-2) 0.5 0.2-1.2 [facility] HospitalAspartate Amino Transf (AST/SGOT) 2018-07-20 06:14:00* Test Item Value Reference Range Interpretation Comments Aspartate Amino Transf (AST/SGOT) (test code = Aspartate Amino Transf (AST/SGOT)) 15 5-34 [facility] HospitalAlanine Aminotransferase (ALT/SGPT) 2018-07-20 06:14:00* Test Item Value Reference Range Interpretation Comments Alanine Aminotransferase (ALT/SGPT) (test code = 1742-6) 11 0-55 [facility] Ihazsxj5287-41-57 06:14:00* Test Item Value Reference Range Interpretation Comments Total Protein (test code = 2885-2) 5.7 6.5-8.1 L [facility] HospitalAlbumin2019-01-12 06:14:00* Test Item Value Reference Range Interpretation Comments Albumin (test code = 1751-7) 3.2 3.5-5.0 L [facility] HospitalGlobulin2019-01-12 06:14:00* Test Item Value Reference Range Interpretation Comments Globulin (test code = 61511-8) 2.5 2.3-3.5 [facility] HospitalAlbumin/Globulin Vravk8261-36-46 06:14:00 * Test Item Value Reference Range Interpretation Comments Albumin/Globulin Ratio (test code = 1759-0) 1.3 0.8-2.0 [facility] HospitalAlkaline Advilliarit2515-90-08 06:14:00* Test Item Value Reference Range Interpretation Comments Alkaline Phosphatase (test code = 6768-6) 65 40-150 [facility] HospitalUrine Hdvex7402-28-14 21:56:00* Test Item Value Reference Range Interpretation Comments Urine Color (test code = 5778-6) YELLOW YELLOW [facility] HospitalUrine Dfujtbi6176-84-06 21:56:00* Test Item Value Reference Range Interpretation Comments Urine Clarity (test code = 06439-3) HAZY CLEAR [facility] HospitalUrine Specific Uxjiofr8955-09-67 21:56:00 * Test Item Value Reference Range Interpretation Comments Urine Specific [place] (test code = 5811-5) 1.005 1.010-1.02 5 L [facility] HospitalUrine iR1707-13-95 21:56:00* Test Item Value Reference Range Interpretation Comments Urine pH (test code = 88238-3) 6.5 5-7 [facility] Leukocyte Qnvujsqs6913-55-67 21:56:00* Test Item Value Reference Range Interpretation Comments Urine Leukocyte Esterase (test code = 5799-2) 1+ NEGATIVE H [facility] Pqpdigz4403-38-25 21:56:00* Test Item Value Reference Range Interpretation Comments Urine Nitrite (test code = 68067-4) NEGATIVE NEGATIVE [facility] Obyxcoi7268-19-25 21:56:00* Test Item Value Reference Range Interpretation Comments Urine Protein (test code = 5804-0) NEGATIVE NEGATIVE [facility] Glucose (UA)2018-07-19 21:56:00* Test Item Value Reference Range Interpretation Comments Urine Glucose (UA) (test code = 2349-9) 1+ NEGATIVE H [facility] Fkwbbef1914-95-83 21:56:00* Test Item Value Reference Range Interpretation Comments Urine Ketones (test code = 21529-4) NEGATIVE NEGATIVE [facility] HospitalUrine Kehpbglkywap7076-01-51 21:56:00* Test Item Value Reference Range Interpretation Comments Urine Urobilinogen (test code = 67212-1) 0.2 0.2-1 [facility] HospitalUrine Whyjoiqht0443-99-41 21:56:00* Test Item Value Reference Range Interpretation Comments Urine Bilirubin (test code = 1978-6) NEGATIVE NEGATIVE [facility] HospitalUrine Waodh7336-82-48 21:56:00* Test Item Value Reference Range Interpretation Comments Urine Blood (test code = 53363-1) TRACE NEGATIVE H [facility] HospitalUrine OOX0908-06-21 21:56:00* Test Item Value Reference Range Interpretation Comments Urine WBC (test code = 5821-4) 11-20 0-5 H [facility] HospitalUrine HIQ1857-30-84 21:56:00* Test Item Value Reference Range Interpretation Comments Urine RBC (test code = 15499-4) 6-10 0-5 H [facility] HospitalUrine Qziyrnbt2949-56-45 21:56:00* Test Item Value Reference Range Interpretation Comments Urine Bacteria (test code = 93825-1) MODERATE NONE H [facility] HospitalUrine Epithelial Osqsb9254-26-50 21:56:00 * Test Item Value Reference Range Interpretation Comments Urine Epithelial Cells (test code = 09303-5) FEW NONE [facility] HospitalCreatine Kinase MQ3714-24-98 19:37:00* Test Item Value Reference Range Interpretation Comments Creatine Kinase MB (test code = 17007-8) 1.40 0-5.0 [facility] HospitalTroponin X8276-43-33 19:37:00* Test Item Value Reference Range Interpretation Comments Troponin I (test code = GOS9713) < 0.001 0-0.300 [facility] HospitalCreatine Kinase NL6926-98-50 19:37:00* Test Item Value Reference Range Interpretation Comments Creatine Kinase MB (test code = 36252-7) 1.40 0-5.0 [facility] HospitalTroponin B6186-66-54 19:37:00* Test Item Value Reference Range Interpretation Comments Troponin I (test code = XKE4630) < 0.001 0-0.300 [facility] HospitalB-Type Natriuretic Soarmfn4926-27-52 19:33:00* Test Item Value Reference Range Interpretation Comments B-Type Natriuretic Peptide (test code = 89329-5) 29.9 0-100 [facility] HospitalB-Type Natriuretic Imgvbdj5893-77-34 19:33:00* Test Item Value Reference Range Interpretation Comments B-Type Natriuretic Peptide (test code = 90216-8) 29.9 0-100 [facility] HospitalB-Type Natriuretic Qyxfhxt1082-98-16 19:33:00* Test Item Value Reference Range Interpretation Comments B-Type Natriuretic Peptide (test code = 21963-9) 29.9 0-100 [facility] HospitalB-Type Natriuretic Zdqgirx7326-44-68 19:33:00* Test Item Value Reference Range Interpretation Comments B-Type Natriuretic Peptide (test code = 33181-1) 29.9 0-100 [facility] HospitalActivated Partial Thromboplast Time 2018-07-19 19:30:00* Test Item Value Reference Range Interpretation Comments Activated Partial Thromboplast Time (test code = 13265-0) 29.9 23.8-35.5 [facility] HospitalActivated Partial Thromboplast Time 2018-07-19 19:30:00* Test Item Value Reference Range Interpretation Comments Activated Partial Thromboplast Time (test code = 06100-4) 29.9 23.8-35.5 [facility] HospitalCreatine Kwrmcq9240-11-51 19:29:00* Test Item Value Reference Range Interpretation Comments Creatine Kinase (test code = 2157-6) 123 29-168 [facility] HospitalCreatine Ubmymm5748-61-39 19:29:00* Test Item Value Reference Range Interpretation Comments Creatine Kinase (test code = 2157-6) 123 29-168 [facility] HospitalProthrombin Qpap2295-78-59 19:28:00* Test Item Value Reference Range Interpretation Comments Prothrombin Time (test code = 5902-2) 12.3 11.9-14.5 [facility] HospitalProthromb Time International Ratio 2018-07-19 19:28:00* Test Item Value Reference Range Interpretation Comments Prothromb Time International Ratio (test code = 6301-6) 0.84 Oral Anticoagulant Therapy INR Values:1. Low Intensity Therapy 1.5 - 2.02 . Moderate Intensity Therapy 2.0 - 3.03. High Intensity Therapy(1) 2.5 - 3. 54. High Intensity Therapy(2) 3.0 - 4.05. Panic Value INR > 5.0 [facility] HospitalProthrombin Mstq9694-62-29 19:28:00* Test Item Value Reference Range Interpretation Comments Prothrombin Time (test code = 5902-2) 12.3 11.9-14.5 [facility] HospitalProthromb Time International Ratio 2018-07-19 19:28:00* Test Item Value Reference Range Interpretation Comments Prothromb Time International Ratio (test code = 6301-6) 0.84 Oral Anticoagulant Therapy INR Values:1. Low Intensity Therapy 1.5 - 2.02 . Moderate Intensity Therapy 2.0 - 3.03. High Intensity Therapy(1) 2.5 - 3. 54. High Intensity Therapy(2) 3.0 - 4.05. Panic Value INR > 5.0 [facility] HospitalCHEST SINGLE (PORTABLE)2018-07-19 18:37:00 [place] [address] Patient Name: SHARLENE MOORE MR #: [id number] : 1935 Age/Sex: 83/F Req #: [id number] Adm Physician: Ordered by: STELLA FUNES MD Report #: [id number] Location: ER Room/Bed: Procedure: [id number] DX /CHEST SINGLE (PORTABLE) Exam Date: 07/19/18 [...] M.D. on 07/19/2018 6:38 PM Dictated By: CESIA ADAM MD, MD Transcribed By: JOHN on 07/19/181837 COPY TO: STELLA FUNES MD CT ABDOMEN/PELVIS E0538-56-80 14:47:00 [place] [address] Patient Name: SHARLENE MOORE MR #: [id number] : 1935 Age/Sex: 83/F Req #: [id number] Adm Physician: Ordered by: LIGIA WEST DO Report #: [id number] Location: CT Room/Bed: Procedure: [id number] CT/C T ABDOMEN/PELVIS W Exam Date: 07/16/18 Exam Time: 14 30 REPORT STATUS: Signed EXAM: C T Abdomen and Pelvis WITH contrast INDICATION: [id number] 1430 LOWER ABD PAIN/DIVERTICULOSIS COMPARISON: None. TECHNIQUE: [...] DOSE: Total DLP: 590.30 mGy*cm Estimated effective dos e: (DLP x 0.015 x size factor) mSv [...] Signed By: JENNY WITT MD on 07/16/18 1505 Transcribed By: JOHN on 07/16 1505 COPY TO: LIGIA WEST DO Blood Urea Xsocxpwh7338-12-02 14:19:00* Test Item Value Reference Range Interpretation Comments Blood Urea Nitrogen (test code = 3094-0) 8 7-26 [facility] HospitalCreatinine2019-01-08 14:19:00* Test Item Value Reference Range Interpretation Comments Creatinine (test code = 2160-0) 0.80 0.57-1.11 [facility] HospitalBUN/Creatinine Qdjpc7809-38-49 14:19:00* Test Item Value Reference Range Interpretation Comments BUN/Creatinine Ratio (test code = 3097-3) 10 12-31 [facility] HospitalEstimat Glomerular Filtration Rate 2018-07-16 14:19:00* Test Item Value Reference Range Interpretation Comments Estimat Glomerular Filtration Rate (test code = 863818267) > 60 >60 Ranges were taken from the National Kidney Disease Education Program and the [facility] Kidney Foundation literature.Reference ranges:60 or greater: Setkha15-88 ( for 3 consecutive months): Chronic kidney disease 15 or less: Kidney failureMemorial Hermann Cypress HospitalBEDSIDE GLUCOSE RNOTWGA8424-34-88 16:41:63660 [facility] GLUCOSE ACDTFHL2294-97-75 13:05:12276Lpxewflg Micah BEDSIDE GLUCOSE DCXUAKS6843-66-82 21:21:44000Kmwrpugn IlejvrrMNPDXYVLB4580-25-86 10:07:0012.3[facility] BclnahaSZGLKKWCE2604-39-09 10:07:000.6[facility] WIFJWPDAC1164-46-60 10:07:73616Hzrdhacu HdjvltrMTCSOYXME4792-31-03 10:07:004.3 Memorial KrvlymzWQYKOPGPZ5057-41-52 10:07:007.6[facility] HermannCHEMISTRY 2011-08-25 10:07:0028[facility] XuxvjzwHEZSZSORF6641-34-15 10:07:21702Deqmnjmc CchqhfzCQXIJAFPX0401-46-64 10:07:005[facility] SryoxovKNSGLDDAL1308-47-75 10:07:00 131[facility] DvrcywfBEQTRUJKAQ4357-05-13 10:07:0010.9[facility] HermannHEMATOLOGY 2011-08-25 10:07:003.48[facility] YppzxxdYAUKYJCAXX6055-05-96 10:07:007.1[facility] PochqkqOWURBBYYCJ1440-61-22 10:07:0013.9[facility] TphkfdhQKPMSKOBBH3298-06-98 10:07:0033.5[facility] EfpenksWBIXHALVBS8927-07-57 10:07:00* Test Item Value Reference Range Interpretation Comments MCH (test code = MCH) 31.5 pg 27.0-31.0 H [facility] XrhdnzqAUCLQLVRWI4493-06-18 10:07:0094.0[facility] HermannHEMATOLOGY 2011-08-25 10:07:0032.7[facility] HfuykkqWNMSHDOUTW2483-05-70 10:07:009.3[facility] ExueyfqSFSCCJAAKG4793-33-10 10:07:72184Rhszjejq FltpbrvYHOSWQFZDU9860-82-42 10:07:000.0[facility] OjxmlexOMCDDITFYJ2065-72-95 10:07:00Normal (08/25/2011 04:07:00) [facility] UvxqwvtXPZICOEFBH8846-14-55 10:07:00Normal (08/25/2011 04:07:00) [facility] AkmaynjSEYBIEFPKV1542-37-01 10:07:00* Test Item Value Reference Range Interpretation Comments Tot Cell Ct (test code = Tot Cell Ct) 100 1 [facility] WipnypjLAANGBKEVT6320-89-52 10:07:005.0[facility] HermannHEMATOLOGY 2011-08-25 10:07:000.0[facility] XzrykeaTRUJYNSANV8343-77-16 10:07:000.0[facility] XnuofhcGQARMJNQWK8824-31-44 10:07:0026.0[facility] PkiunpnXCIBEVNNOU1682-00-52 10:07:004.9[facility] NjsjqujSPWEACLURG0870-51-39 10:07:000.4[facility] [place] DKNAXPKZQT0325-62-93 10:07:000.0[facility] ElaeipnHHEAODVTSG6575-70-22 10:07:001.8 Memorial FbefsnmTTNMTMKNHF8634-81-28 10:07:0069.0[facility] HermannCHEMISTRY 2011-08-24 10:20:0013.3[facility] QcbgznjBXIOFQADI0496-42-22 10:20:30228Qplfmwmo UvlrxcvYGXUNKRAA0675-69-01 10:20:0026[facility] GjlxbwaLFKEVUVWQ7014-34-05 10:20:007.8[facility] NeasjheAYZDKJXSI3443-11-87 10:20:004.3[facility] SWNEYSGNC5717-90-18 10:20:65287Tacsvagz KjatqjcTMGYLYXSO6594-97-76 10:20:008 Memorial GsetfgpRYCFBHUOS0758-29-38 10:20:46887Vjouhgla HermannCHEMISTRY 2011-08-24 10:20:000.7[facility] RcjnfkrVRCSHAZYRO1589-58-38 10:20:007.4[facility] EmvsvptMEGWWAFAVU8167-13-33 10:20:000.7[facility] MzookhpEJLJTFAKSO8645-39-69 10:20:000.7[facility] KwzizbdUQCFFLAOCU4649-76-48 10:20:000.0[facility] DZZCOIPNBF7086-39-99 10:20:000.0[facility] JhlpfnwCXUEGLNZQB0636-53-88 10:20:000.0 Memorial QgpgtsySOGAJYCXOL3590-29-39 10:20:0084.5[facility] HermannHEMATOLOGY 2011-08-24 10:20:007.8[facility] KnaekroESEHCBEAUX0811-01-68 10:20:000.0[facility] BzlieziACICLFLCYD8734-90-55 10:20:007.7[facility] QqlizghKJUGDLZHEA0360-32-26 10:20:0034.5[facility] CmeusklGANANRNTUF1082-66-12 10:20:0013.2[facility] GVAVZTIAZD0357-48-39 10:20:008.7[facility] AjjyzjeEBOPERJTUU5950-10-76 10:20:00 93.3[facility] ExcnvlkEXMUTSXWQG9171-91-14 10:20:00* Test Item Value Reference Range Interpretation Comments MCH (test code = MCH) 32.2 pg 27.0-31.0 H Memorial LmvkpzxQDCOGBLHND5022-92-05 10:20:0033.1[facility] HermannHEMATOLOGY 2011-08-24 10:20:003.55[facility] XhdjvzzDXMZBAHTRM8160-36-43 10:20:0011.4[facility] LdsdsdyCJTYBYNCHE4392-70-68 10:20:89804Kwawkcrq VerqcneYUXFFBSPHQ5503-11-99 10:20:009.2[facility] GjxerzlKTHFBLBEE6048-54-31 17:20:0024[facility] HRLHRJAPV4002-06-46 17:20:007.5[facility] DxcdchuWTQCDAFCT5875-78-96 17:20:003.8 [facility] MijqllrJNNHWEWTE8034-08-35 17:20:0095[facility] HermannCHEMISTRY 2011-08-21 17:20:000.3[facility] UngevobASVXGRVJU2249-19-30 17:20:0016[facility] RhwdfzlZRBEJASLK9072-21-31 17:20:008.4[facility] PfeufdxXSRFEMAJQ4474-33-00 17:20:0027[facility] ShorjhpXQIDENPDG4459-29-23 17:20:003.8[facility] [place] AOFKFCCPB3496-42-93 17:20:88485Iweghddt VdohvciYVAKDDHBO6549-12-22 17:20:0013 Memorial MxkeveoFDMYDYBCK5226-36-18 17:20:27479Sfxneikx HermannCHEMISTRY 2011-08-21 17:20:000.6[facility] ZzniluhBETJUBYIV6504-27-64 17:20:16347Gylexzql OhdmcqgOQIMBYJGU3226-69-24 17:20:003.7[facility] YcduityKCMTTRYID1469-18-28 17:20:001.0[facility] FhfirczWYNQJHQRN8671-45-73 17:20:0022[facility] TBLWYXXQR6952-63-21 17:20:0013.8[facility] FvrpsehEQJBLKFKDL6654-78-38 17:20:00* Test Item Value Reference Range Interpretation Comments PTT (test code = PTT) 30.3 s 22.9-35.8 N [facility] QwuqvxoTVSEDJKNIC7322-99-54 17:20:00* Test Item Value Reference Range Interpretation Comments PT (test code = PT) 11.8 s 12.0-14.7 L [facility] FwehqzqCMMNUCUQZF0246-13-44 17:20:000.86[facility]annHEMATOLOGY 2011-08-21 17:20:009.3[facility] AbkiidsEPUGXTDLXE9648-75-70 17:20:0013.0[facility] CjrsdgaZZIIDEIGEN6077-41-26 17:20:72924Zaegddov QagxcskLQHXIKJDXJ1396-73-97 17:20:0036.6[facility] VjvdmgySHRUGAYMMT1431-66-04 17:20:0034.6[facility] RUQHNEEOFY9246-60-63 17:20:0092.3[facility] YeswxmpRZUQYJAYNW1746-68-02 17:20:00 12.6[facility] VbaqnnsLHELMGLZLT2040-71-82 17:20:00* Test Item Value Reference Range Interpretation Comments MCH (test code = MCH) 31.9 pg 27.0-31.0 H [facility] SuorwebTVQFOXYZSU5398-04-36 17:20:003.96[facility]annHEMATOLOGY 2011-08-21 17:20:005.5[facility] PynycmgHHEQWEIFUD0492-31-99 17:20:000.0[facility] RpsxeseXMUCZYGBWB0744-31-23 17:20:001.0[facility] WusftpwDDNPQVAYBC2481-96-61 17:20:000.3[facility] ZgktktxZTTJEMGYDT6799-64-40 17:20:005.3[facility] UUUEJNQIUF9965-05-54 17:20:003.7[facility] WdverheXUAZZBPFKM8193-08-04 17:20:000.4 [facility] PcqnehqJKIHVWOHFA0772-96-16 17:20:000.9[facility]annHEMATOLOGY 2011-08-21 17:20:007.6[facility] YpwvvacYAPCRNNPCJ7182-97-32 17:20:0018.7[facility] WutmwsqJORCPYTHYN8230-65-04 17:20:0067.5[facility] CsacyfkOVNEGFUTU7547-97-93 02:55:00* Test Item Value Reference Range Interpretation Comments CK MB Index (test code = CK MB Index) 0.7 1 <=2.5 N [facility] AdnzkyrTHROIXOMM0934-34-88 02:55:000.6[facility] HermannCHEMISTRY 2011-05-23 02:55:0090.0[facility] UjggnxkTIPZBMYIZ5683-22-07 02:55:00<0.02[facility] RrefgfqMZTDANWSQ8285-99-88 02:55:0088.0[facility] KikscbhCTMYTMWHV7775-23-61 02:55:00* Test Item Value Reference Range Interpretation Comments A/G Ratio (test code = A/G Ratio) 1.0 1 0.7-1.6 N [facility] BblttumWHHTWJJYA0741-96-73 02:55:0025.0[facility] HermannCHEMISTRY 2011-05-23 02:55:000.4[facility] OatibgeJCZCTIQRY6793-88-31 02:55:008.9[facility] IzqwzxcZATVYMLRI9758-61-12 02:55:00* Test Item Value Reference Range Interpretation Comments B/C Ratio (test code = B/C Ratio) 18.0 1 6-25 N [facility] QasiihdGAFCJGABR0418-09-15 02:55:004.2[facility] HermannCHEMISTRY 2011-05-23 02:55:04018.0[facility] CzxciehJAENRHXZL4980-53-65 02:55:0011.0[facility] ClwksknUYFOVIBBC3774-17-29 02:55:000.6[facility] UzriokhPKUXLZXYG2327-82-04 02:55:72641.0[facility] ArjpmhnBTUGTBZES4183-54-67 02:55:0032.0[facility] OITTWUFQR6993-79-65 02:55:27676.0[facility] NeyaqknEKSCNYOZZ5413-30-24 02:55:003.9 [facility] CnfaqdnVCAAEWASR3096-24-12 02:55:009.3[facility] HermannCHEMISTRY 2011-05-23 02:55:008.5[facility] AjjjhqeBNVHBPJIG0765-68-21 02:55:0075.0[facility] HarliogWXKFBZZBX5916-81-22 02:55:004.3[facility] QnzkazbTWZANWWTC5407-51-05 02:55:0031.0[facility] EgzqgatYIWKCZXHCZ7163-42-15 02:55:000.5[facility] CSSHFXRBQD8688-76-29 02:55:000.3[facility] DqwqygeEZOJIUWXCP8130-42-57 02:55:001.7 [facility] WewpbazNTXQOHTMRB6114-07-61 02:55:004.3[facility]annHEMATOLOGY 2011-05-23 02:55:004.4[facility] UxlfjckLFHKJMIKKR2759-98-92 02:55:000.9[facility] WjlpmsoUGZABOJOZD8380-80-59 02:55:006.8[facility] MottcwqUBOLEXEERU0030-17-40 02:55:0024.8[facility] ExpkedeADSDBHGYNY5365-03-11 02:55:0063.2[facility] LZWMCIOPZS8625-27-95 02:55:000.1[facility] ApyjzskEPJABZDAAC8791-85-05 02:55:009.4 [facility] KsuisgvPUWVUHPRNH6635-68-20 02:55:04569.0[facility]annHEMATOLOGY 2011-05-23 02:55:0013.2[facility] WiboybwLMUQRIAKUO7799-61-83 02:55:00* Test Item Value Reference Range Interpretation Comments MCH (test code = MCH) 32.1 pg 27.0-31.0 H [facility] KirmgliMSGUAHNJUM7699-00-72 02:55:0034.5[facility]annHEMATOLOGY 2011-05-23 02:55:0092.9[facility] BolqunkSKWPAAWWSP4634-98-46 02:55:0013.3[facility] KnkbgwiQHYLJJNPSB6685-97-22 02:55:0038.4[facility] ZwmddvuXPBGJGQFJT2252-38-19 02:55:004.14[facility] MepdrqcBDDGCCOAOV8638-96-65 02:55:006.9[facility] GFWXFUTJKK3765-05-79 01:40:00Negative (05/22/2011 19:40:00) ??[facility] PDQTQUTGNK5604-10-00 01:40:00None Seen (05/22/2011 19:40:00) ??[facility] YJGFBDEEFY5716-98-97 01:40:00Trace *ABN*(05/22/2011 19:40:00) ??[facility] XBNDFFCUJY9026-96-46 01:40:00None Seen (05/22/2011 19:40:00) ??[facility] VYDNFYVUSX5907-60-19 01:40:003-5 /HPF (05/22/2011 19:40:00) ??[facility] EOYTZQTEJH0378-71-55 01:40:00Negative *NA*(05/22/2011 19:40:00) ??[facility] YrlsrvgUTACJIYLSX6610-71-00 01:40:00Negative *NA*(05/22/2011 19:40:00) ?? [facility] PfjrdocMOGSVLXQZH4943-13-84 01:40:00Negative (05/22/2011 19:40:00) ?? [facility] CrpdcjrQVIXABLKXM9321-07-11 01:40:000.2[facility]ann[facility] 2011-05-23 01:40:00None Seen (05/22/2011 19:40:00) ??[facility]annURINALYSIS 2011-05-23 01:40:00Negative (05/22/2011 19:40:00) ??[facility]annURINALYSIS 2011-05-23 01:40:00* Test Item Value Reference Range Interpretation Comments UA pH (test code = UA pH) 6.0 1 5.0-8.0 N [facility] CqchitbBACUQTRZEB4367-32-97 01:40:00Negative (05/22/2011 19:40:00) ?? [facility] XaensvzDFEHNHQRLI4933-25-36 01:40:00Clear (05/22/2011 19:40:00) ?? [facility] DeqgbssVUTBFVQYFN9885-25-06 01:40:00* Test Item Value Reference Range Interpretation Comments UA Spec Grav (test code = UA Spec Grav) 1.01 1 N [facility] JcomayzQOGTUWHARJ0312-97-24 01:40:00Yellow *NA*(05/22/2011 19:40:00) ?? [facility] [place] [address] Patient Name: SHARLENE MOORE MR #: [id number] : 1935 Age/Sex: 82/F Req #: [id number] [facility] Physician: Ordered by: JILLIAN RINCON MD Report #: [id number] Location: Room/Bed: Procedure: [id number] US/US RENAL RETROPERITONEAL COMP Exam Date: Exam [...]
--- NOTE | 2020-02-24 19:36 | Diagnostic Imaging Report ---
EXAMINATION: CT of the abdomen and pelvis with contrast. TECHNIQUE: Spiral CT images of the abdomen and pelvis were performed from the lung bases to the lesser trochanters after the intravenous administration of 100 cc of Isovue 370 and the oral administration of water. Coronal and sagittal reformatted images were obtained. COMPARISON: CT abdomen and pelvis 04/28/2019 and 09/28/2019 CLINICAL HISTORY:Left lower quadrant pain, nausea DISCUSSION: ABDOMEN/PELVIS: LOWER THORAX:Unremarkable. HEPATOBILIARY: No focal hepatic lesions. Mild to moderate prominence of the central intrahepatic bile ducts. The common bile duct is borderline to minimally dilated, which measures 6-7 mm at the john hepatis. No radiopaque intraluminal filling defects. GALLBLADDER: Not visualized. SPLEEN: No splenomegaly. PANCREAS: No focal masses or ductal dilatation. ADRENALS: No adrenal nodules. KIDNEYS/URETERS: No hydronephrosis, renal or ureteral calculi or solid enhancing masses. Stable 1.4 cm fluid density simple cyst in the left inferior pole (coronal image 50). Mild prominence of the distal portion of the left ureter, with minimal wall enhancement (best seen in coronal image 62). No perinephric stranding. PELVIC ORGANS/BLADDER: Bladder is moderately distended. No focal lesions or wall thickening. PERITONEUM/RETROPERITONEUM: No free air or fluid. LYMPH NODES: No intra-abdominal, retroperitoneal, pelvic or inguinal lymphadenopathy. VESSELS: The celiac trunk,superior and inferior mesenteric and bilateral renal arteries are patent The portal, superior mesenteric and splenic veins are patent. Atherosclerotic calcification of the abdominal aorta and proximal iliac vessels. GI TRACT: No bowel dilation or evidence of obstruction. No pericolonic inflammatory changes. A few scattered diverticula are noted in the sigmoid colon, without diverticulitis. BONES AND SOFT TISSUE: No aggressive lytic or suspicious focal sclerotic lesions. Degenerated disc in the lumbosacral spine, predominantly at L5-S1. Soft tissues are grossly unremarkable. IMPRESSION: 1. No acute abdominopelvic abnormalities. Specifically, no acute abnormal findings in the left lower quadrant to explain the patient's pain. 2. Moderately distended bladder. Correlate for bladder outlet obstruction. 3. Mild to moderate prominence of the central intrahepatic bile ducts and borderline to minimal dilation of the common bile duct, likely reflecting postcholecystectomy status. No radiopaque intraluminal filling defects are noted. Signed by: Dr. Albert Her M.D. on 02/24/2020 7:33 PM
== END 2020-02-24 20:36 | disposition home or self-care (01) ==
LOC: ER 16:08
DX: R10.32 Left lower quadrant pain (principal); N39.0 Urinary tract infection, site not specified; M54.5 Low back pain; I10 Essential (primary) hypertension; E11.9 Type 2 diabetes mellitus without complications; E78.5 Hyperlipidemia, unspecified; K21.9 Gastro-esophageal reflux disease without esophagitis; F41.9 Anxiety disorder, unspecified; G89.29 Other chronic pain
CPT/HCPCS: 36415; 74177; 80053; 81001; 83690; 84484; 85025; 99284; J2405; J3010

== ENCOUNTER 2020-03-25 16:01 | Emergency (ER) | payer MEDICARE, OTHER ==
[~2020-03-25] VITALS: Ht 149.9 cm; Wt 58.5 kg
--- NOTE | 2020-03-25 18:11 | Diagnostic Imaging Report ---
Exam: Abdominal film Clinical History: Loss of appetite, abdominal pain., Left lower quadrant pain today Comparison: CT abdomen and pelvis 02/24/2020 DISCUSSION: Frontal view of the abdomen shows a nonobstructive bowel gas pattern with mild amount of retained stool.There are no dilated, air-filled loops of bowel. There are no abnormal calcifications.No acute bone abnormality. IMPRESSION: 1. Nonobstructive bowel gas pattern with mild retained stool. The staff physician below has personally reviewed this exam on the date of dictation. Signed by: Dr. Albert Her M.D. on 03/25/2020 6:08 PM
[2020-03-25] MEDS ORDERED: DIATRIZOATE MEGL/DIATRIZOA SOD 30 ML BTL PO ONE (19:14)
[2020-03-25 19:19] LABS: BASOPHILS # (AUTO) 0.1 (0.0-0.1); BASOPHILS % 0.7 % (0.0-1.0); EOSINOPHILS % 0.3 % (0.0-6.0); HEMATOCRIT 38.3 % (34.2-44.1); HEMOGLOBIN 12.3 g/dL (12.0-16.0); LYMPHOCYTES # (AUTO) 0.8 (1.0-3.2); LYMPHOCYTES % 10.6 % (18.0-39.1); MEAN CORPUSCULAR HEMOGLOBIN 30.6 pg (28-32); MEAN CORPUSCULAR HGB CONC 32.1 g/dL (31-35); MEAN CORPUSCULAR VOLUME 95.3 fL (81-99); MONOCYTES # (AUTO) 0.5 (0.2-0.8); MONOCYTES % 6.9 % (4.4-11.3); NEUTROPHILS % 81.2 % (38.7-80.0); PLATELET COUNT 225 x10e3/uL (140-360); RED BLOOD COUNT 4.02 x10e6/uL (3.6-5.1); RED CELL DISTRIBUTION WIDTH 13.4 % (11.7-14.4)
[2020-03-25] MEDS ORDERED: MORPHINE SULFATE 2 MG/ML SYR 1ML IV STA (19:30)
[2020-03-25] MEDS ORDERED: ONDANSETRON HCL INJ 2MG/ML 2ML 2 MG/ML VIAL IV STA (19:30)
--- NOTE | 2020-03-25 19:33 | Emergency Department Note ---
History of Present Illnes History of Present Illness Chief Complaint: Abdominal Complaints History of Present Illness This is a 85 year old female IN FROM HOME WITH COMPLAINTS OF ABDOMINAL PAIN AND CRAMPING SINCE THIS MORNING; STATES SHE TOOK A LAXATIVE LAST NIGHT. PATIENT STATES SHE HAS HAD THIS PAIN OFF AND ON "FOR A LONG TIME". STATES HAD A BM THIS MORNING, BUT NOW WITH LLQ PAIN . Historian: Patient Arrival Mode: Car Onset (how long ago): hour(s) (8) Location: LLQ Quality: PAIN Radiation: Reports non-radiation Severity: moderate Onset quality: sudden (8) Duration (how long): hour(s) Timing of current episode: constant Progression: unchanged Chronicity: recurrent Context: Denies recent illness, Denies recent surgery Relieving factors: none Exacerbating factors: none Associated symptoms: Reports denies other symptoms Past Medical/Family History Physician Review I have reviewed the patient's past medical and family history. Any updates have been documented here. Past Medical History Recent Fever: No Clinical Suspicion of Infectio: No New/Unexplained Change in Ment: No Past Medical History: Hypertension, Diabetes, UTI's, Anxiety, Depression, GERD, Hyperlipedemia, Osteoarthritis Other Medical History: ARTHRITIS CHRONIC PAIN OSTEOPOROSIS Past Surgical History: Cholecysctectomy, Appendectomy, Hysterectomy, Hernia Repair Other Surgery: HYST GB APPY HERNIA X3 LT EAR Social History Smoking Cessation: Unknown if ever smoked Counseling Performed: No Alcohol Use: None Any Illegal Drug Use: No Other Last Tetanus: UNKNOWN Any Pre-Existing Lines (PICC,: No Review of Systems Review of Systems Constitutional: Reports no symptoms EENTM: Reports no symptoms Cardiovascular: Reports no symptoms Respiratory: Reports no symptoms Gastrointestinal: Reports as per HPI Genitourinary: Reports no symptoms Musculoskeletal: Reports no symptoms Integumentary: Reports no symptoms Neurological: Reports no symptoms Psychological: Reports no symptoms Endocrine: Reports no symptoms Hematological/Lymphatic: Reports no symptoms Physical Exam Related Data Allergies: Coded Allergies: codeine (Verified Allergy, Intermediate, STOMACH PAIN, 03/25/20) lorazepam (Verified Allergy, Intermediate, 03/25/20) Triage Vital Signs Vital Signs Date Time Temp Pulse Resp B/P (MAP) Pulse Ox O2 Delivery O2 Flow Rate FiO2 03/25/20 16:16 99.1 96 18 147/89 100 Room Air Vital signs reviewed: Yes Physical Exam CONSTITUTIONAL Constitutional: Absent distressed HENT HENT: Present normocephalic, Present atraumatic, Present oropharynx clear/moist, Present nose normal HENT L/R: Present left ext ear normal, Present right ext ear normal EYES Eyes: Reports PERRL, Reports conjunctivae normal NECK Neck: Present ROM normal PULMONARY Pulmonary: Present effort normal, Present breath sounds normal CARDIOVASCULAR Cardiovascular: Present regular rhythm, Present heart sounds normal, Present capillary refill normal, Present normal rate GASTROINTESTINAL Abdominal: Present soft, Present bowel sounds normal, Present tender (MODERATE TENDERNESS LLQ AND SUPRAPUBIC AREA) GENITOURINARY Genitourinary: Present exam deferred SKIN Skin: Present warm, Present dry MUSCULOSKELETAL Musculoskeletal: Present ROM normal NEUROLOGICAL Neurological: Present alert, Present oriented x 3, Present no gross motor or sensory deficits PSYCHOLOGICAL Psychological: Present mood/affect normal, Present judgement normal Results Laboratory Result Diagram: 03/25/201909 Laboratory Laboratory Tests Test 03/25/20 19:40 03/25/20 19:10 Urine Color Yellow (YELLOW) Urine Clarity Sl cloudy (CLEAR) Urine pH 7 (5 - 7) Urine Specific [place] 1.020 (1.010-1.025) Urine Protein Negative (NEGATIVE) Urine Glucose (UA) Negative (NEGATIVE) Urine Ketones 1+ (NEGATIVE) Urine Blood Trace (NEGATIVE) Urine Nitrite Negative (NEGATIVE) Urine Bilirubin Negative (NEGATIVE) Urine Urobilinogen 0.2 mg/dL (0.2 - 1) Urine Leukocyte Esterase Moderate (NEGATIVE) Urine RBC 0-5 /HPF (0-5) Urine WBC 11-20 /HPF (0-5) Urine Epithelial Cells Few /LPF (NONE) Urine Bacteria Few /HPF (NONE) White Blood Count 7.39 x10e3/uL (4.8-10.8) Red Blood Count 4.02 x10e6/uL (3.6-5.1) Hemoglobin 12.3 g/dL (12.0-16.0) Hematocrit 38.3 % (34.2-44.1) Mean Corpuscular Volume 95.3 fL (81-99) Mean Corpuscular Hemoglobin 30.6 pg (28-32) Mean Corpuscular Hemoglobin Concent 32.1 g/dL (31-35) Red Cell Distribution Width 13.4 % (11.7-14.4) Platelet Count 225 x10e3/uL (140-360) Neutrophils (%) (Auto) 81.2 % (38.7-80.0) Lymphocytes (%) (Auto) 10.6 % (18.0-39.1) Monocytes (%) (Auto) 6.9 % (4.4-11.3) Eosinophils (%) (Auto) 0.3 % (0.0-6.0) Basophils (%) (Auto) 0.7 % (0.0-1.0) Neutrophils # (Auto) 6.0 (2.1-6.9) Lymphocytes # (Auto) 0.8 (1.0-3.2) Monocytes # (Auto) 0.5 (0.2-0.8) Eosinophils # (Auto) 0.0 (0.0-0.4) Basophils # (Auto) 0.1 (0.0-0.1) Absolute Immature Granulocyte (auto 0.02 x10e3/uL (0-0.1) Sodium Level 136 mmol/L (136-145) Potassium Level 3.8 mmol/L (3.5-5.1) Chloride Level 101 mmol/L (98-107) Carbon Dioxide Level 25 mmol/L (22-29) Anion Gap 13.8 mmol/L (8-16) Blood Urea Nitrogen 14 mg/dL (7-26) Creatinine 0.75 mg/dL (0.57-1.11) Estimat Glomerular Filtration Rate > 60 ML/MIN (60-) BUN/Creatinine Ratio 19 (6-25) Glucose Level 107 mg/dL (74-118) Calcium Level 9.4 mg/dL (8.4-10.2) Total Bilirubin 0.4 mg/dL (0.2-1.2) Aspartate Amino Transf (AST/SGOT) 26 IU/L (5-34) Alanine Aminotransferase (ALT/SGPT) 23 IU/L (0-55) Alkaline Phosphatase 87 IU/L (40-150) Total Protein 7.8 g/dL (6.5-8.1) Albumin 4.5 g/dL (3.5-5.0) Globulin 3.3 g/dL (2.3-3.5) Albumin/Globulin Ratio 1.4 (0.8-2.0) Amylase Level 38 U/L (25-125) Lipase 8 U/L (8-78) Laboratory Tests Test 03/25/20 19:10 White Blood Count 7.39 x10e3/uL (4.8-10.8) Red Blood Count 4.02 x10e6/uL (3.6-5.1) Hemoglobin 12.3 g/dL (12.0-16.0) Hematocrit 38.3 % (34.2-44.1) Mean Corpuscular Volume 95.3 fL (81-99) Mean Corpuscular Hemoglobin 30.6 pg (28-32) Mean Corpuscular Hemoglobin Concent 32.1 g/dL (31-35) Red Cell Distribution Width 13.4 % (11.7-14.4) Platelet Count 225 x10e3/uL (140-360) Neutrophils (%) (Auto) 81.2 % (38.7-80.0) Lymphocytes (%) (Auto) 10.6 % (18.0-39.1) Monocytes (%) (Auto) 6.9 % (4.4-11.3) Eosinophils (%) (Auto) 0.3 % (0.0-6.0) Basophils (%) (Auto) 0.7 % (0.0-1.0) Neutrophils # (Auto) 6.0 (2.1-6.9) Lymphocytes # (Auto) 0.8 (1.0-3.2) Monocytes # (Auto) 0.5 (0.2-0.8) Eosinophils # (Auto) 0.0 (0.0-0.4) Basophils # (Auto) 0.1 (0.0-0.1) Absolute Immature Granulocyte (auto 0.02 x10e3/uL (0-0.1) Imaging Imaging results reviewed: Yes Impressions Procedure: [id number] CT/CT ABDOMEN/PELVIS W Exam Date: 03/25/20 Exam Time: 2100 REPORT STATUS: Signed EXAM: CT Abdomen and Pelvis WITH contrast INDICATION: LLQ PAIN, EVAL FOR DIVERTICULITIS COMPARISON: CT dated 02/24/2020. TECHNIQUE: Abdomen and pelvis were scanned utilizing a multidetector helical scanner from the lung base to the pubic symphysis after administration of IV contrast. Coronal and sagittal reformations were obtained. Routine protocol was performed. Scan was performed when during portal venous phase. IV CONTRAST: 100 mL of Isovue 370 ORAL CONTRAST: CT dated 07/16/2018 COMPLICATIONS: None RADIATION DOSE: Total DLP: 183.81 mGy*cm Estimated effective dose: (DLP x 0.015 x size factor) mSv CTDIvol has been reviewed. It is below the limits set by the Radiation Protocol Committee (RPC). Dose modulation, iterative reconstruction, and/or weight based adjustment of the mA/kV was utilized to reduce the radiation dose to as low as reasonably achievable. FINDINGS: LINES and TUBES: None. LOWER THORAX: Unremarkable HEPATOBILIARY: No focal hepatic lesions. Unchanged minimal intrahepatic biliary dilation likely post cholecystectomy reservoir effect. GALLBLADDER: There are cholecystectomy clips. No wall thickening. SPLEEN: No splenomegaly. PANCREAS: No focal masses or ductal dilatation. ADRENALS: No adrenal nodules KIDNEYS/URETERS: Kidneys enhance symmetrically. No hydronephrosis. Unchanged small left renal cyst. No stones. GI TRACT: No abnormal distention, wall thickening, or evidence of bowel obstruction. There are diverticula within the colon without evidence of diverticulitis. Appendix is not clearly identified. There is however no fat stranding or adenopathy in the right lower quadrant to suggest appendicitis. PELVIC ORGANS/BLADDER: No significant abnormality. Urinary bladder unremarkable. LYMPH NODES: No lymphadenopathy. VESSELS: Atherosclerosis without aneurysmal dilatation of the abdominal aorta. PERITONEUM / RETROPERITONEUM: No free air or fluid. BONES: There are degenerative changes in the spine. IMPRESSION: 1. No acute abdominopelvic process. 2. Mild colonic diverticulosis without evidence of acute diverticulitis. Signed by: Jai Nieves MD on 03/25/2020 9:37 PM Dictated By: JAI NIEVES MD 36 Transcribed By: JOHN on 03/25/202136 COPY TO: JOVANI VERONICA MD~ Assessment & Plan Medical Decision Making MDM PT WITH LLQ PAIN CBC, CMP, UA, CT ABD/PELVIS ORDERED TO EVAL FOR UTI, DIVERTICULITIS, COLITIS, PROCTITIS, ELECTROLYTE ABNORMALITY Assessment & Plan Final Impression: (1) Diverticulitis (2) Abdominal pain Depart Disposition: HOME, SELF-CARE Last Vital Signs Date Time Temp Pulse Resp B/P (MAP) Pulse Ox O2 Delivery O2 Flow Rate FiO2 03/25/20 18:52 98.6 87 18 177/77 100 Room Air Home Meds Reported Medications Cholecalciferol (Vitamin D3) (Vitamin D3) 10 Mcg Capsule, PO DAILY 11/24/19 Lisinopril (PRINIVIL) 20 Mg Tablet, 20 MG PO DAILY, #30 TAB 11/18/19 Linagliptin (TRADJENTA) 5 Mg Tablet, 5 MG PO DAILY 02/10/19 Medications in the ED Diatrizoate Meglum/ Diatrizoate Sod 30 ml STK-MED ONCE PO ; Start 03/25/20 at 19:14; Stop 03/25/20 at 19:07; Status DC JOVANI VERONICA MD Mar 25, 2020 19:33
[2020-03-25 19:37] LABS: ALANINE AMINOTRANSFERASE 23 IU/L (0-55); ALBUMIN 4.5 g/dL (3.5-5.0); ALBUMIN/GLOBULIN RATIO 1.4 (0.8-2.0); ALKALINE PHOSPHATASE 87 IU/L (40-150); ANION GAP 13.8 mmol/L (8-16); BLOOD UREA NITROGEN 14 mg/dL (7-26); BUN/CREATININE RATIO 19 (6-25); CALCIUM 9.4 mg/dL (8.4-10.2); CARBON DIOXIDE 25 mmol/L (22-29); CHLORIDE 101 mmol/L (98-107); CREATININE, SERUM 0.75 mg/dL (0.57-1.11); EST GLOMERULAR FILTRATION RATE > 60 ML/MIN (60-); GLUCOSE 107 mg/dL (74-118); POTASSIUM 3.8 mmol/L (3.5-5.1); SODIUM 136 mmol/L (136-145)
[2020-03-25 19:55] LABS: AMYLASE 38 U/L (25-125); LIPASE 8 U/L (8-78)
[2020-03-25 20:01] LABS: BILIRUBIN,URINE NEGATIVE (NEGATIVE); CLARITY,URINE SL CLOUDY (CLEAR); COLOR,URINE YELLOW (YELLOW); KETONES,URINE 1+ (NEGATIVE); LEUKOCYTE ESTERASE ,URINE MODERATE (NEGATIVE); NITRITE,URINE NEGATIVE (NEGATIVE); PROTEIN,URINE DIPSTICK NEGATIVE (NEGATIVE); URINE UROBILINOGEN 0.2 mg/dL (0.2 - 1)
[2020-03-25 20:16] LABS: BACTERIA,URINE FEW /HPF; EPITHELIAL CELLS,URINE FEW /LPF; RBC,URINE 0-5 /HPF (0-5)
--- NOTE | 2020-03-25 21:40 | Diagnostic Imaging Report ---
EXAM: CT Abdomen and Pelvis WITH contrast INDICATION: LLQ PAIN, EVAL FOR DIVERTICULITIS COMPARISON: CT dated 02/24/2020. TECHNIQUE: Abdomen and pelvis were scanned utilizing a multidetector helical scanner from the lung base to the pubic symphysis after administration of IV contrast. Coronal and sagittal reformations were obtained. Routine protocol was performed. Scan was performed when during portal venous phase. IV CONTRAST: 100 mL of Isovue 370 ORAL CONTRAST: CT dated 07/16/2018 COMPLICATIONS: None RADIATION DOSE: Total DLP: 183.81 mGy*cm Estimated effective dose: (DLP x 0.015 x size factor) mSv CTDIvol has been reviewed. It is below the limits set by the Radiation Protocol Committee (RPC). Dose modulation, iterative reconstruction, and/or weight based adjustment of the mA/kV was utilized to reduce the radiation dose to as low as reasonably achievable. FINDINGS: LINES and TUBES: None. LOWER THORAX: Unremarkable HEPATOBILIARY: No focal hepatic lesions. Unchanged minimal intrahepatic biliary dilation likely post cholecystectomy reservoir effect. GALLBLADDER: There are cholecystectomy clips. No wall thickening. SPLEEN: No splenomegaly. PANCREAS: No focal masses or ductal dilatation. ADRENALS: No adrenal nodules KIDNEYS/URETERS: Kidneys enhance symmetrically. No hydronephrosis. Unchanged small left renal cyst. No stones. GI TRACT: No abnormal distention, wall thickening, or evidence of bowel obstruction. There are diverticula within the colon without evidence of diverticulitis. Appendix is not clearly identified. There is however no fat stranding or adenopathy in the right lower quadrant to suggest appendicitis. PELVIC ORGANS/BLADDER: No significant abnormality. Urinary bladder unremarkable. LYMPH NODES: No lymphadenopathy. VESSELS: Atherosclerosis without aneurysmal dilatation of the abdominal aorta. PERITONEUM / RETROPERITONEUM: No free air or fluid. BONES: There are degenerative changes in the spine. IMPRESSION: 1. No acute abdominopelvic process. 2. Mild colonic diverticulosis without evidence of acute diverticulitis. Signed by: Alcides Stanton MD on 03/25/2020 9:37 PM
[2020-03-25 21:55] VITALS: BP 151/69
[2020-03-25] MEDS ORDERED: SODIUM CHLORIDE 0.9% 50ML 50 ML ONE (22:23)
[2020-03-25] MEDS ORDERED: IOPAMIDOL 370 MG/ML 200 ML INFUS..BTL INJ ONE (22:23)
--- OUTSIDE RECORDS SUMMARY | 2020-03-26 10:28 | XMS REPORT | Continuity of Care Document ---
Author Author Joseph Micah [employer], SHARLENE Mendoza Organization [employer] Address Unknown Phone Unavailable Care Team Providers Care [employer] Name Role Phone [employer] Information [employer] Unavailable Un available Problems Problem Status Onset Date Classification Date Reported Comments Source DX: M25.512-PAIN IN LEFT SHOULDER Active 01/30/2019 [facility] OSTEOPOROSIS Active 03/11/2014 [facility] ROUTINE SCREENING Active 02/01/2012 [facility] ABNORMAL CHEST XRAY Active 08/21/2011 [facility] INCISIONAL HERNIA [id number] Active 07/28/2011 [facility] INCISIONAL HERNIA Active 07/28/2011 [facility] ABD PAIN Active 05/09/2011 [facility] DM - Diabetes mellitus Active Problem 08/29/2011 [facility] GERD - Gastro-esophageal reflux disease Active Problem 08/29/2011 [facility] HTN - Hypertension Active Problem 08/29/2011 [facility] Incisional hernia Active Problem 08/29/2011 [facility] Arthritis (disorder) Active Problem 09/04/2019 [facility] [place] Diabetes mellitus (disorder) A ctive Problem [facility] [place] Gastroesophageal reflux disease (disorder) Active Problem 09/04/2019 [facility] [place] Hypertensive disorder, systemic arterial (disorder) Active Problem 09/04/2019 [facility] [place] Incisional hernia (disorder) A ctive Problem [facility] [place] Arthritis Active Problem 08/29/2011 [facility] INCISIONAL HERNIA Active [facility] Medications Medication Details Route Status Patient Instructions Ordering Provider Order Date Source Restoril 15 mg, 1 cap, Route: PO, Drug form: CAP, Bedtime, PRN Sleep, Start date: 08/26/11 12:04:00, Duration: 30 day, Stop date: 09/25/11 12:03:00 PO No Longer Active Gelber 08/26/2011 [facility] Crestor 20 mg, 2 tab, Route: P O, Drug form: TAB, Bedtime, Start date: 08/25/11 21:00:00, Duration: 30 day, Stop date: 09/23/11 21:00:00 PO No Longer Active Hadad 08/26/2011 [facility] tramadol 50 mg oral tablet 50 mg, 1 tab, Route: PO, Drug form: TAB, Q4H, PRN Pain, Start date: 08/25/11 17:31:00, Duration: 30 day, Stop date: 09/24/11 17:30:00 PO No Longer Active Hadad 08/25/2011 [facility] Tylenol 325 mg, 1 tab, Route: PO, Drug form: TAB, Q4H, PRN Pain, Start date: 08/25/11 17:31:00, Duration: 30 day, Stop date: 09/24/11 17:30:00 PO No Longer Active Hadad 08/25/2011 [facility] Ultracet oral tablet 1 tab, Ro brody: PO, Drug Form: TAB, Q4H, PRN Pain, Start date: 08/25/11 11:05:00, Duration: 30 day, Stop date: 09/24/11 11:04:00 PO No Longer Active Hadad 08/25/2011 [facility] Milk of Magnesia 60 ml, Route: PO, Drug Form: SUSP, ONCE, Start date: 08/25/11 11:04:00, Stop date: 08/25/11 11:04:00 PO No Longer Active Hadad 08/25/2011 [facility] Diovan 80 mg, 1 tab, Route: PO , Drug form: TAB, Daily, Start date: 08/25/11 9:00:00, Duration: 30 day, Stop date: 09/23/11 9:00:00 PO No Longer Active Hadad 08/25 [facility] metFORmin 500 mg oral tablet 5 00 mg, 1 tab, Route: PO, Drug form: TAB, Breakfast, Start date: 08/25/11 8:00:00, Duration: 30 day, Stop date: 09/23/11 8:00:00 PO No Longer Active Hadad 08/25/2011 [facility] acetaminophen-hydrocodone 325 mg-5 mg oral tablet 1 tab, Route: PO, Drug Form: TAB, Q4H, PRN Pain, Start date: 08/24/11 13:06:00, Duration: 30 day, Stop date: 09/23/11 13:05:00 PO No Longer Active Hadad 08/24/2011 [facility] Dilaudid 0.5 mg, 0.25 mL, Rout e: IVP, Drug form: INJ, Q3H, PRN Severe Pain, Start date: 08/24/11 13:06:00, Duration: 30 day, Stop date: 09/23/11 13:05:00 IVP No Longer Active Hadad 08/24/2011 [facility] NovoLog FlexPen 18 unit, 0.18 mL, Route: SUB-Q, Drug form: SOLN, Q6H, PRN Blood Glucose Results, Start date: 08/24/11 13:04:00, Duration: 30 day, Stop date: 09/23/11 13:03:00 SUB-Q No Longer Active Hadad 08/24/2011 [facility] glucagon 1 mg, Route: IM, Drug form: PDR/INJ, PRN, PRN Blood Glucose Results, Start date: 08/24/11 13:04:00, Duration: 30 day, Stop date: 09/23/11 14:03:00 IM No Longer Active Hadad 08/24/2011 [facility] Dextrose 50% in Water IV 50 mL , Route: IVP, PRN, Blood Glucose Results, Start date: 08/24/11 13:04:00, Duration: 30 day, Stop date: 09/23/11 14:03:00 IVP No Longer Active Hadad 08/24/2011 [facility] NovoLog FlexPen 9 unit, 0.09 m L, Route: SUB-Q, Drug form: SOLN, Q6H, PRN Blood Glucose Results, Start date: 08/24/11 13:03:00, Duration: 30 day, Stop date: 09/23/11 13:02:00 SUB-Q No Longer Active Hadad 08/24/2011 [facility] Crestor 20 mg oral tablet 20 m g, 1 tab, Bedtime, Substitution Allowed On Hold 08/24/2011 [facility] metFORmin 500 mg oral tablet 5 00 mg, 1 tab, PO, Daily, Substitution Allowed, with breakfastwith breakfast PO On Hold 08/24/2011 [facility] Unasyn 3 gm, 1 ea, Route: IVPB , ABXQ6H, Start date: 08/23/11 18:00:00, Duration: 24 hr, Stop date: 08/24/11 12:00:00 IVPB No Longer Active Hadad 08/24/2011 [facility] Protonix 40 mg, Route: IVP, Dr ug form: INJ, Before Dinner, Start date: 08/23/11 18:00:00, Duration: 30 day, Stop date: 09/22/11 16:30:00 IVP No Longer Active Hadad 08/24/2011 [facility] No Lovenox No Lovenox, 1, Drug form: MISC, Route: MISC, Continuous, 08/23/11 17:30:00, Duration: 30 day, Stop date: 09/22/11 18:29:00 MISC No Longer Active Hadad 08/23 [facility] Dilaudid 1.5 mg, 0.75 mL, Rout e: IVP, Drug form: INJ, Q3H, PRN Pain, Start date: 08/23/11 17:06:00, Duration: 30 day, Stop date: 09/22/11 17:05:00 IVP No Longer Active Hadad 08/23/2011 [facility] Dextrose 5% with 0.45% NaCl IV 1,000 mL 1,000 mL, Rate: 120 ml/hr, Infuse over: 8.3 hr, Route: IV, Total Volume: 1,000, Start date: 08/23/11 17:04:00, Duration: 30 day, Stop date: 09/22/11 17:03:00 IV No Longer Active Hadad 08/23/2011 [facility] Diovan 80 mg, PO, Daily, Subst itution Allowed PO On Hold 08/23/2011 [facility] lidocaine 1% 0.5 mL, Route: RAINES B-Q, Drug Form: INJ, ONCALL, Start date: 08/23/11 10:00:00, Duration: 1 doses or times SUB-Q No Longer Active Hadad 08/23/2011 [facility] Lactated Ringers Injection IV 1,000 mL 1,000 mL, Rate: 25 ml/hr, Infuse over: 40 hr, Route: IV, Total Volume: 1,000, Start date: 08/23/11 9:44:00, Duration: 30 day, Stop date: 09/22/11 9:43:00 IV No Longer Active Jarred 08/23/2011 [facility] Reglan 10 mg oral tablet 10 mg , 1 tab, PO, QID, PRN, 28 tab, nausea, Substitution Allowed, TAB PO Active Zoe jasmine 05/23/2011 [facility] Pepto-Bismol 262 mg/15 mL oral suspension 262 mg, 15 ml, PO, QID, PRN, 120 ml, for dyspepsia, Substitution Allowed, SUSP PO Active joanne05/23/2011 [facility] Zofran 4 mg, Route: IVP, Drug form: INJ, ONCE, Priority: STAT, Start date: 05/22/11 23:06:00, Stop date: 05/22/11 23:06:00 IVP No Longer Active 05/23/2011 [facility] morphine Sulfate 2 mg, Route: IVP, ONCE, Priority: STAT, Start date: 05/22/11 23:06:00, Stop date: 05/22/11 23:06:00 IVP No Longer Active 05/23/2011 [facility] Sodium Chloride 0.9% (Bolus) IV 500 mL 500 mL, Rate: 1,000 ml/hr, Infuse over: 0.5 hr, Route: IV, Total Volume: 500, Bolus dose, Priority: STAT, Start date: 05/22/11 21:18:00, Duration: 1 doses or times, Stop date: 05/22/11 21:47:00 IV No Longer Active [facility] 05/23/2011 [facility] Saline Flush 0.9% 5 ml, Route: IVP, Drug Form: INJ, PRN, PRN Line Flush, Start date: 05/22/11 21:18:00, Duration: 24 hr, Stop date: 05/23/11 21:17:00 IVP No Longer Active [facility] 05/23/2011 [facility] Allergies, Adverse Reactions, Alerts Substance Category Reaction Severity Reaction type Status Date Reported Comments Source codeine Assertion Drug allergy Active [facility] [place] Immunizations No Data Provided for This Section Results Order Name Results Value Reference Range Date Interpretation Comments Source BEDSIDE GLUCOSE TESTING Comment1 Notify RN/ 08/27/2011 STARLA [facility] BEDSIDE GLUCOSE TESTING Gluc POC Lif scn 108 65 - 110 08/27/2011 Normal <sup>1</sup>Interpretive Data: Upper Reportable Limit: 200 mg/dL. [facility] BEDSIDE GLUCOSE TESTING Gluc POC Lif scn 124 65 - 110 08/27/2011 [place] <sup>2</sup>Interpretive Data: Upper Reportable Limit: 200 mg/dL. [facility] BEDSIDE GLUCOSE TESTING Comment1 Notify LOUISA/ 08/27/2011 NA [facility] BEDSIDE GLUCOSE TESTING Gluc POC Lif scn 117 65 - 110 08/26/2011 [place] <sup>3</sup>Interpretive Data: Upper Reportable Limit: 200 mg/dL. [facility] BEDSIDE GLUCOSE TESTING Comment1 Notify LOUISA/ 08/26/2011 NA [facility] CHEMISTRY AGAP 12.3 10.0 - 20.0 08/25/2011 Normal [facility] CHEMISTRY Creatinine Lvl 0.6 0.5 - 1.4 08/25/2011 Normal [facility] CHEMISTRY Sodium Lvl 142 135 - 145 08/25/2011 Normal [facility] CHEMISTRY Potassium Lvl 4.3 3.5 - 5.1 08/25/2011 Normal [facility] CHEMISTRY Calcium Lvl 7.6 8.5 - 10.5 08/25/2011 LOW [facility] CHEMISTRY CO2 28 24 - 32 08/25/2011 Normal [facility] CHEMISTRY Chloride Lvl 106 95 - 109 08/25/2011 Normal [facility] CHEMISTRY BUN 5 7 - 22 08/25/2011 LOW [facility] CHEMISTRY Glucose Lvl 131 08/25/2011 NA <sup>4</sup>Interpretive Data: Reference Ranges : 0 - 7 days : 41 - 90 mg/dL 7 days - 150 yrs : 70 - 99 mg/dL (fasting), based on the clinical recommendations of the [place] [employer]. [facility] HEMATOLOGY Hgb 10.9 12.0 - 16.0 08/25/2011 LOW [facility] HEMATOLOGY RBC 3.48 4.20 - 5.40 08/25/2011 LOW [facility] HEMATOLOGY WBC 7.1 3.7 - 10.4 08/25/2011 Normal [facility] HEMATOLOGY RDW 13.9 11.5 - 14.5 08/25/2011 Normal [facility] HEMATOLOGY MCHC 33.5 32.0 - 36.0 08/25/2011 Normal [facility] HEMATOLOGY MCH 31.5 27.0 - 31.0 08/25/2011 HI [facility] HEMATOLOGY MCV 94.0 81.0 - 99.0 08/25/2011 Normal [facility] HEMATOLOGY Hct 32.7 36.0 - 48.0 08/25/2011 LOW [facility] HEMATOLOGY MPV 9.3 7.4 - 10.4 08/25/2011 Normal [facility] HEMATOLOGY Platelet 208 133 - 450 08/25/2011 Normal [facility] HEMATOLOGY Atypical Lymphs 0.0 <=0.0 08/25/2011 Normal [facility] HEMATOLOGY RBC Morph Lynnette l (08/25/2011 04:07:00) 08/25/2011 Normal [facility] HEMATOLOGY Plt Morph Lynnette l (08/25/2011 04:07:00) 08/25/2011 Normal [facility] HEMATOLOGY Tot Cell Ct 100 08/25/2011 NA [facility] HEMATOLOGY Monocytes 5.0 2.0 - 12.0 08/25/2011 Normal [facility] HEMATOLOGY Eosinophils 0.0 0.0 - 4.0 08/25/2011 Normal [facility] HEMATOLOGY Basophils 0.0 0.0 - 1.0 08/25/2011 Normal [facility] HEMATOLOGY Lymphocytes 26.0 20.0 - 40.0 08/25/2011 Normal [facility] HEMATOLOGY Segs-Bands # 4.9 1.5 - 8.1 08/25/2011 Normal [facility] HEMATOLOGY Monocytes # 0.4 0.0 - 0.8 08/25/2011 Normal [facility] HEMATOLOGY Bands 0.0 0.0 - 11.0 08/25/2011 Normal [facility] HEMATOLOGY Lymphocytes # 1.8 1.0 - 5.5 08/25/2011 Normal [facility] HEMATOLOGY Segs 69.0 45.0 - 75.0 08/25/2011 Normal [facility] CHEMISTRY AGAP 13.3 10.0 - 20.0 08/24/2011 Normal [facility] CHEMISTRY Glucose Lvl 133 08/24/2011 NA <sup>5</sup>Interpretive Data: Reference Ranges : 0 - 7 days : 41 - 90 mg/dL 7 days - 150 yrs : 70 - 99 mg/dL (fasting), based on the clinical recommendations of the [place] [employer]. [place] CHEMISTRY CO2 26 24 - 32 08/24/2011 Normal [facility] CHEMISTRY Calcium Lvl 7.8 8.5 - 10.5 08/24/2011 LOW [facility] CHEMISTRY Potassium Lvl 4.3 3.5 - 5.1 08/24/2011 Normal [facility] CHEMISTRY Chloride Lvl 106 95 - 109 08/24/2011 Normal [facility] CHEMISTRY BUN 8 7 - 22 08/24/2011 Normal [facility] CHEMISTRY Sodium Lvl 141 135 - 145 08/24/2011 Normal [facility] CHEMISTRY Creatinine Lvl 0.7 0.5 - 1.4 [...] HEMATOLOGY MCH 32.2 27.0 - 31.0 08/24/2011 [facility] [place] HEMATOLOGY Hct 33.1 36.0 - [...] Total 0.3 0.2 - 1.3 08/21/2011 Normal [facility] CHEMISTRY AST 16 0 - 37 08/21/2011 Normal [facility] CHEMISTRY Calcium Lvl 8.4 8.5 - 10.5 08/21/2011 LOW [facility] CHEMISTRY CO2 27 24 - 32 08/21/2011 Normal [facility] CHEMISTRY Potassium Lvl 3.8 3.5 - 5.1 08/21/2011 Normal [facility] CHEMISTRY Chloride Lvl 104 95 - 109 08/21/2011 Normal [facility] CHEMISTRY BUN 13 7 - 22 08/21/2011 Normal [facility] CHEMISTRY Sodium Lvl 141 135 - 145 08/21/2011 Normal [facility] CHEMISTRY Creatinine Lvl 0.6 0.5 - 1.4 08/21/2011 Normal [facility] CHEMISTRY Glucose Lvl 117 08/21/2011 NA <sup>6</sup>Interpretive Data: Reference Ranges : 0 - 7 days : 41 - 90 mg/dL 7 days - 150 yrs : 70 - 99 mg/dL (fasting), based on the clinical recommendations of the [place] [employer]. [facility] CHEMISTRY Globulin 3.7 2.0 - 4.0 08/21/2011 Normal [facility] CHEMISTRY A/G Ratio 1.0 0.7 - 1.6 08/21/2011 Normal [facility] CHEMISTRY B/C Ratio 22 6 - 25 08/21/2011 Normal [facility] CHEMISTRY AGAP 13.8 10.0 - 20.0 08/21/2011 Normal [facility] HEMATOLOGY PTT 30.3 22.9 - 35.8 08/21/2011 Normal <sup>8</sup>Interpretive Data: Heparin T herapeutic Range: 57 - 92 Seconds [facility] HEMATOLOGY PT 11.8 12.0 - 14.7 08/21/2011 LOW [facility] HEMATOLOGY INR 0.86 0.85 - 1.17 08/21/2011 Normal <sup>7</sup>Interpretive Data: RECOMMEND ED RANGES FOR PROTIME INR: 2.0-3.0 for most medical and surgical thromboembolic states. 2.5-3.5 for artificial heart valves and recurrent embolism. INR SHOULD BE USED ONLY FOR PATIENTS ON STABLE ANTICOAGULANT THERAPY. [facility] HEMATOLOGY MPV 9.3 7.4 - 10.4 08/21/2011 Normal [facility] HEMATOLOGY RDW 13.0 11.5 - 14.5 08/21/2011 Normal [facility] HEMATOLOGY Platelet 232 133 - 450 08/21/2011 [...] Troponin-I <0.02 0.00 - 0.40 05/23/2011 Normal [facility] CHEMISTRY Lipase Lvl 88.0 73 - 393 05/23/2011 Normal [facility] CHEMISTRY A/G Ratio 1.0 0.7 - 1.6 05/23/2011 Normal [facility] CHEMISTRY AST 25.0 0 - 37 05/23/2011 Normal [facility] CHEMISTRY Bili Total 0.4 0.2 - 1.3 05/23/2011 Normal [facility] CHEMISTRY AGAP 8.9 10.0 - 20.0 05/23/2011 LOW [facility] CHEMISTRY B/C Ratio 18.0 6 - 25 05/23/2011 Normal [facility] CHEMISTRY Globulin 4.2 2.0 - 4.0 05/23/2011 [facility] [place] CHEMISTRY Glucose Lvl 105.0 05/23/2011 [...] Total Protein 8.5 6.4 - 8.4 05/23/2011 [facility] CHEMISTRY Alk Phos 75.0 39 [...] HEMATOLOGY Eosinophils 4.3 0.0 - 4.0 05/23/2011 [facility] HEMATOLOGY Segs-Bands # 4.4 1.5 - 8.1 05/23/2011 Normal [facility] HEMATOLOGY Basophils 0.9 0.0 - 1.0 05/23/2011 Normal [facility] HEMATOLOGY Monocytes 6.8 2.0 - 12.0 05/23/2011 Normal [facility] HEMATOLOGY Lymphocytes 24.8 20.0 - 40.0 05/23/2011 Normal [facility] HEMATOLOGY Segs 63.2 45.0 - 75.0 05/23/2011 Normal [facility] HEMATOLOGY Basophils # 0.1 0.0 - 0.2 05/23/2011 Normal [facility] HEMATOLOGY MPV 9.4 7.4 - 10.4 05/23/2011 Normal [facility] HEMATOLOGY Platelet 270.0 133 - 450 05/23/2011 Normal [facility] HEMATOLOGY RDW 13.2 11.5 - 14.5 05/23/2011 Normal [facility] HEMATOLOGY MCH 32.1 27.0 - 31.0 05/23/2011 HI [facility] HEMATOLOGY MCHC 34.5 32.0 - 36.0 05/23/2011 Normal [facility] HEMATOLOGY MCV 92.9 81.0 - 99.0 05/23/2011 Normal [facility] HEMATOLOGY Hgb 13.3 12.0 - 16.0 05/23/2011 Normal [facility] HEMATOLOGY Hct 38.4 36.0 - 48.0 05/23/2011 Normal [facility] HEMATOLOGY RBC 4.14 4.20 - 5.40 05/23/2011 LOW [facility] HEMATOLOGY WBC 6.9 3.7 - 10.4 05/23/2011 Normal [place] URINALYSIS UA Nitrite Negat dayna (05/22/2011 19:40:00) ?? >Nega tive 05/23/2011 Normal [facility] URINALYSIS UA Bacteria None Seen (05/22/2011 19:40:00) ?? >None Seen 05/23/2011 Normal [facility] URINALYSIS UA Leuk Est Trace *ABN* (05/22/2011 19:40:00) ?? >Nega tive 05/23/2011 ABN [facility] URINALYSIS UA Sq Epi None Seen (05/22/2011 19:40:00) ?? >Few 05/23/2011 Normal [facility] URINALYSIS UA WBC 3-5 / HPF (05/22/2011 19:40:00) ?? >None Seen 05/23/2011 Normal [facility] URINALYSIS UA Ketones Negat dayna *NA* (05/22/2011 19:40:00) ?? >Nega tive 05/23/2011 NA [facility] URINALYSIS UA Bili Negat dayna *NA* (05/22/2011 19:40:00) ?? >Nega tive 05/23/2011 NA [facility] URINALYSIS UA Blood Negat dayna (05/22/2011 19:40:00) ?? >Nega tive 05/23/2011 Normal [facility] URINALYSIS UA Urobilinogen 0.2 0.1 - 1.0 05/23/2011 Normal [facility] URINALYSIS UA RBC None Seen (05/22/2011 19:40:00) ?? >0 - 2 05/23/2011 Normal [facility] URINALYSIS UA Glucose Negat dayna (05/22/2011 19:40:00) ?? >Nega tive 05/23/2011 Normal [facility] URINALYSIS UA pH 6.0 5.0 - 8.0 05/23/2011 Normal [facility] URINALYSIS UA Protein Negat dayna (05/22/2011 19:40:00) ?? >Nega tive 05/23/2011 Normal [facility] URINALYSIS UA Turbidity Clear (05/22/2011 19:40:00) ?? >Clear 05/23/2011 Normal [facility] URINALYSIS UA Spec Grav 1.01 <<=1.030 05/23/2011 Normal [facility] URINALYSIS UA Color Yello w *NA* (05/22/2011 19:40:00) ?? >[place] ow 05/23/2011 NA [facility] Pathology Reports No Data Provided for This [...] 18 08/27/2011 [place] Heart Rate 76 08/27/2011 [facility] Temperature Oral (F) 98.3 F 08/27/2011 [facility] Heart Rate 82 08/27/2011 [facility] Respitory Rate 18 08/27/2011 [facility] Systolic (mm Hg) 121 08/27/2011 [facility] Diastolic (mm Hg) 69 08/27/2011 [place] Systolic (mm Hg) 116 08/27/2011 [facility] Respitory Rate 18 08/27/2011 [facility] Diastolic (mm Hg) 74 08/27/2011 [facility] Temperature Oral (F) 98.0 F 08/27/2011 [facility] Heart Rate 84 08/27/2011 [place] Height 152.40 cm 08/25/2011 [place] Weight 63.636 08/25/2011 [place] Weight 63.636 08/21/2011 [facility] Height 154.94 cm 08/21/2011 [facility] Temperature Oral (F) 98.5 F 05/23/2011 [place] Respitory Rate 18.0 05/23/2011 [facility] Diastolic (mm Hg) 86.0 05/23/2011 [facility] Heart Rate 78.0 05/23/2011 [place] Systolic (mm Hg) 147.0 05/23/2011 [facility] Temperature Oral (F) 98.3 F 05/23/2011 [facility] Heart Rate 78.0 05/23/2011 [facility] Respitory Rate 18.0 05/23/2011 [facility] Systolic (mm Hg) 141.0 05/23/2011 [facility] Diastolic (mm Hg) 71.0 05/23/2011 [facility] Systolic (mm Hg) 196.0 05/23/2011 [facility] Respitory Rate 16.0 05/23/2011 [facility] Heart Rate 72.0 05/23/2011 [facility] Diastolic (mm Hg) 70.0 05/23/2011 [facility] Temperature Oral (F) 98.0 F 05/23/2011 [facility] Height 152.4 cm 05/23/2011 [facility] Weight 63.636 05/23/2011 [facility] Encounters Location Location Details Encounter Type Encounter Number Reason For Visit Attending Provider ADM Date DC Date Status Source [facility] Emergency [id number] ELISE OVALLES 05/22/2011 05/23/2011 Discharged [facility] Outpatient [id number] ABNORMAL CHEST XR AY KIBMERLY HADAD 08/22/2011 [facility] In[facility] [id number] INCISIONAL HERNIA [id number] KIMBERLY HADAD 08/23/2011 08/27/2011 Active [facility] Outpatient [id number] Ángel Victorth 02/02/2019 02/03/2019 [facility] [place] [facility] [id number] Ángel [facility] 02/14/2019 02/15/2019 [facility] [place] [facility] [place] [facility] [id number] [facility] 09/01/2019 09/02/2019 [facility] [place] [facility] Outpatient [id number] ROUTINE SCREENING KERON LYON Active [facility] Procedures No Data Provided for This Section Assessment and Plan No Data Provided for This Section Plan of Care No Data Provided for This Section Social History Social History Date Source Social History TypeResponse 09/02/2019 [facility] [place] Social History TypeResponse 02/03/2019 [facility] Family History No Data Provided for This Section Advance Directives No Data Provided for This Section Functional Status No Data Provided for This Section
--- OUTSIDE RECORDS SUMMARY | 2020-03-26 10:29 | XMS REPORT | Continuity of Care Document ---
Author Author [facility] Organization [facility] Address [address] [place] [address] Phone Unavailable Care Team Providers Care Riveter Helper Name Role Phone DO LIGIA WEST DO PCP Christi VERONICA Attphys Unavailable Tyrell Garza Attphys Unavailable JAY PETERSEN Attphys Unavailable ZAINAB CHUNG Attphys [...] Number Effective Date Expiration Date Reji luevano [facility] [id number] 2019 00:00:00 [facility] [id number] 2011 00:00 :00 [facility] Cdc Review Covid19 [id number] [facility] [id number] 2017 00:00:00 [facility] Reji [facility] Problems Condition Name Condition Details Condition Category Status Onset Date Resolution Date Last Treatment Date Treating Clinician Comments Source DX: M25.512-PAIN IN LEFT SHOULDER DX: M25.512-PAIN IN LEFT SHOULDER Active 01/30/2019 [facility] Active 2019-01-30 00:00:00 2019-02-02 16:34:00 [facility] OSTEOPOROSIS OSTE OPOROSIS Active 03/11/2014 [facility] Active 2014-03-11 00:00:00 2014-04-13 15:26:00 [facility] ROUTINE SCREENING ROUT INE SCREENING Active 02/01/2012 [facility] Active 2012-02-01 00:00:00 2012-03-15 13:58:00 [facility] ABNORMAL CHEST XRAY ABNO RMAL CHEST XRAY Active 08/21/2011 [facility] Active 2011-08-21 00:00:00 2011-08-22 14:12:00 [facility] INCISIONAL HERNIA 553.21/24406 INCISIONAL HERNIA 553.21/41977 Active 07/28/2011 [facility] Active 07-28 00:00:00 2011-12-25 11:49:00 [facility] INCISIONAL HERNIA INCI SIONAL HERNIA Active 07/28/2011 [facility] Active 2011-07-28 00:00:00 2011-08-11 13:57:00 [facility] ABD PAIN ABD PAIN Active 05/09/2011 [facility] Active 2011-05-09 00:00:00 2011-05-22 22:11:00 [facility] Hypertension Hypertension Problem Active [facility] Hyponatremia Hyponatremia Problem Active [facility] Dizziness Problem Active [facility] Urinary tract infection Problem Active [facility] Abdominal pain Problem Active [facility] Diverticulitis Problem Active [facility] DM - Diabetes mellitus DM - Diabetes mellitus Active Problem 08/29/2011 [facility] Active 2011-08-29 09:01:4 5 [facility] GERD - Gastro-esophageal reflux disease GERD - Gastro- esophageal reflux disease Active Problem 08/29/2011 [facility] Problem A ctive 2011-08-29 09:01:45 Joseph Novoa delgadillo HTN - Hypertension HTN - Hypertension Active Problem 08/29/2011 [facility] Problem Active 2011-08-29 09:01:45 [facility] [place] Incisional hernia Inci sional hernia Active Problem 08/29/2011 [facility] Problem Active 2011-08-29 09:01:45 [facility] [place] Arthritis (disorder) Arth ritis (disorder) Active Problem 09/04/2019 ADDISON Yany [facility] Problem Active 2019-09-04 00:02:54 [facility] Diabetes mellitus (disorder) D iabetes mellitus (disorder) Active Problem 09/04/2019 ADDISON [place] [facility] Problem Active 2019-09-04 00:02:54 [facility] Gastroesophageal reflux disease (disorder) Gastroesophageal reflux disease (disorder) Active Problem 09/04/2019 MART[facility]asha [facility] Problem Active 2019-09-04 00:02:54 [facility] [place] Incisional hernia (disorder) I ncisional hernia (disorder) Active Problem 09/04/2019 ADDISON [facility] Problem Active 2019-09-04 00:02:54 [facility] Arthritis Arth ritis Active Problem 08/29/2011 [facility] Problem Active 2011-08-29 09:01:45 [facility] INCISIONAL HERNIA INCI SIONAL HERNIA Active [facility] Diagnosis Active 2011-12-25 11:49:00 [facility] Allergies, Adverse Reactions, Alerts Allergy Name Allergy Type Status Severity Reaction(s) Onset Date Inacti ve Date Treating Clinician Comments Source Lorazepam Allergy to substance Active Moderate 2020-03-25 00:00:00 [facility] codeine DA Active [place] 2018-06-28 00:00:00 [facility] codeine DA Active [place] 2017-07-17 00:00:00 [facility] codeine codeine Active [facility] Social History Social Habit Start Date Stop Date Quantity Comments Source Sex Assigned At 1935 00:00:00 1935 00:00:00 Female [facility] Medications Ordered Medication Name Filled Medication Name Start Date Stop Da te Current Medication? Ordering Clinician Indication Dosage Frequency Signature (SIG) Comments Components Source Tramadol Hcl (Ultram) 50 Mg TABLET Tramadol Hcl (Ultram) 50 Mg TABLET 2018-08-11 18:07:00 2019-11-18 00:00:00 No 50 Every 6 Hours as needed for Pain [facility] Cephalexin Monohydrate (Keflex) 500 Mg CAPSULE Cephale darcy Monohydrate (Keflex) 500 Mg CAPSULE 2018-08-11 18:06:00 2018-08-29 00:00:00 No 5 00 Every 6 Hours [facility] Restoril 2011-08-26 18:04:00 No Larry Merlin Gelber 15 mg, 1 cap, Route: PO, Drug form: CAP, Bedtime, PRN Sleep, Start date: 08/26/11 12:04:00, Duration: 30 day, Stop date: 09/25/11 12:03:00 Veronica Obrien Crestor 2011-08-26 03:00:00 No Christo R Hadad 20 mg, 2 tab, Route: PO, Drug form: TAB, Bedtime, Start date: 08/25/11 21:00:00, Duration: 30 day, Stop date: 09/23/11 21:00:00 [facility] tramadol 50 mg oral tablet 2011-08-25 23:31:00 No Aniba l R Hadad 50 mg, 1 tab, Route: PO, Drug form: TAB, Q4H, PRN Pain, Start date: 08/25/11 17:31:00, Duration: 30 day, Stop date: 09/24/11 17:30:00 [facility] Tylenol 2011-08-25 23:31:00 No Christo R Hadad 325 mg, 1 tab, Route: PO, Drug form: TAB, Q4H, PRN Pain, Start date: 08/25/11 17:31:00, Duration: 30 day, Stop date: 09/24/11 17:30:00 [facility] Ultracet oral tablet 2011-08-25 17:05:00 No Christo R Goode dad 1 tab, Route: PO, Drug Form: TAB, Q4H, PRN Pain, Start date: 08/25/11 11:05:00, Duration: 30 day, Stop date: 09/24/11 11:04:00 [facility] Milk of Magnesia 2011-08-25 17:04:00 No Christo R Hadad 60 ml, Route: PO, Drug Form: SUSP, ONCE, Start date: 08/25/11 11:04:00, Stop date: 08/25/11 11:04:00 [facility] Diovan 2011-08-25 15:00:00 No Christo R Hadad 80 mg, 1 tab, Route: PO, Drug form: TAB, Daily, Start date: 08/25/11 9:00:00, Duration: 30 day, Stop date: 09/23/11 9:00:00 [facility] metFORmin 500 mg oral tablet 2011-08-25 14:00:00 No Ani bal R Hadad 500 mg, 1 tab, Route: PO, Drug form: TAB, Breakfast, Start date: 08/25/11 8:00:00, Duration: 30 day, Stop date: 09/23/11 8:00:00 [facility] acetaminophen-hydrocodone 325 mg-5 mg oral tablet 19:06:00 No Christo R Hadad 1 tab, Route: PO , Drug Form: TAB, Q4H, PRN Pain, Start date: 08/24/11 13:06:00, Duration: 30 day, Stop date: 09/23/11 13:05:00 [facility] Dilaudid 2011-08-24 19:06:00 No Christo R Hadad 0.5 mg, 0.25 mL, Route: IVP, Drug form: INJ, Q3H, PRN Severe Pain, Start date: 08/24/11 13:06:00, Duration: 30 day, Stop date: 09/23/11 13:05:00 [facility] NovoLog FlexPen 2011-08-24 19:04:00 No Christo R Hadad 18 unit, 0.18 mL, Route: SUB-Q, Drug form: SOLN, Q6H, PRN Blood Glucose Results, Start date: 08/24/11 13:04:00, Duration: 30 day, Stop date: 09/23/11 13:03:00 [facility] glucagon 2011-08-24 19:04:00 No Christo R Hadad 1 mg, Route: IM, Drug form: PDR/INJ, PRN, PRN Blood Glucose Results, Start date: 08/24/11 13:04:00, Duration: 30 day, Stop date: 09/23/11 14:03:00 [facility] Dextrose 50% in Water IV 2011-08-24 19:04:00 No Christo R Hadad 50 mL, Route: IVP, PRN, Blood Glucose Results, Start date: 08/24/11 13:04:00, Duration: 30 day, Stop date: 09/23/11 14:03:00 [facility] NovoLog FlexPen 2011-08-24 19:03:00 No Christo R Hadad 9 unit, 0.09 mL, Route: SUB-Q, Drug form: SOLN, Q6H, PRN Blood Glucose Results, Start date: 08/24/11 13:03:00, Duration: 30 day, Stop date: 09/23/11 13:02:00 [facility] Crestor 20 mg oral tablet 2011-08-24 17:53:48 Yes 20 mg, 1 tab, Bedtime, Substitution Allowed [facility] metFORmin 500 mg oral tablet 2011-08-24 17:52:53 Yes 500 mg, 1 tab, PO, Daily, Substitution Allowed, with breakfastwith breakfast [facility] Unasyn 2011-08-24 00:00:00 No Christo R Hadad 3 gm, 1 ea, Route: IVPB, ABXQ6H, Start date: 08/23/11 18:00:00, Duration: 24 hr, Stop date: 08/24/11 12:00:00 [facility] Protonix 2011-08-24 00:00:00 No Christo R Hadad 40 mg, Route: IVP, Drug form: INJ, Before Dinner, Start date: 08/23/11 18:00:00, Duration: 30 day, Stop date: 09/22/11 16:30:00 [facility] No Lovenox 2011-08-23 23:30:00 No Christo R Hadad No Lovenox, 1, Drug form: MISC, Route: MISC, Continuous, 08/23/11 17:30:00, Duration: 30 day, Stop date: 09/22/11 18:29:00 [facility] Dilaudid 2011-08-23 23:06:00 No Christo R Hadad 1.5 mg, 0.75 mL, Route: IVP, Drug form: INJ, Q3H, PRN Pain, Start date: 08/23/11 17:06:00, Duration: 30 day, Stop date: 09/22/11 17:05:00 Aristeo sussy Obrien Dextrose 5% with 0.45% NaCl IV 1,000 mL 2011-08-23 23:04:0 0 No Christo R Hadad 1,000 mL, Rate: 120 ml/hr, Infuse over: 8.3 hr, Route: IV, Total Volume: 1,000, Start date: 08/23/11 17:04:00, Duration: 30 day, Stop date: 09/22/11 17:03:00 Joseph Obrien Diovan 2011-08-23 16:32:59 Yes 80 mg, PO, Daily, Substitution Allowed Joseph Obrien lidocaine 1% 2011-08-23 16:00:00 No Christo R Hadad 0.5 mL, Route: SUB- Q, Drug Form: INJ, ONCALL, Start date: 08/23/11 10:00:00, Duration: 1 doses or times Joseph Obrien Lactated Ringers Injection IV 1,000 mL 2011-08-23 15:44:00 No Salvador Dumont Jarred 1,000 mL, Rate: 25 ml/hr, Infuse over: 40 hr, Route: IV, Total Volume: 1,000, Start date: 08/23/11 9:44:00, Duration: 30 day, Stop date: 09/22/11 9:43:00 [facility] Micah Reglan 10 mg oral tablet 2011-05-23 05:47:07 Yes Samson Kutsen 10 mg, 1 tab, PO, QID, PRN, 28 tab, nausea, Substitution Allowed, TAB [facility] Pepto-Bismol 262 mg/15 mL oral suspension 2011-05-23 05:46 :38 Yes Samson Kutsen 262 mg, 15 ml, P O, QID, PRN, 120 ml, for dyspepsia, Substitution Allowed, SUSP [facility] Zofran 2011-05-23 05:06:00 No Samson Kutsen 4 mg, Route: IVP, Drug form: INJ, ONCE, Priority: STAT, Start date: 05/22/11 23:06:00, Stop date: 05/22/11 23:06:00 [facility] morphine Sulfate 2011-05-23 05:06:00 No Samson Kutsen 2 mg, Route: IVP, ONCE, Priority: STAT, Start date: 05/22/11 23:06:00, Stop date: 05/22/11 23:06:00 [facility] Sodium Chloride 0.9% (Bolus) IV 500 mL 2011-05-23 03:18:00 No Samson Kutsen 500 mL, Rate: 1, 000 ml/hr, Infuse over: 0.5 hr, Route: IV, Total Volume: 500, Bolus dose, Priority: STAT, Start date: 05/22/11 21:18:00, Duration: 1 doses or times, Stop date: 05/22/11 21:47:00 [facility] Saline Flush 0.9% 2011-05-23 03:18:00 No Samson Kutsen 5 ml, Route: IVP, Drug Form: INJ, PRN, PRN Line Flush, Start date: 05/22/11 21:18:00, Duration: 24 hr, Stop date: 05/23/11 21:17:00 [facility] Cholecalciferol (Vitamin D3) (Vitamin D3) 10 Mcg CAPSU LE Cholecalciferol (Vitamin D3) (Vitamin D3) 10 Mcg CAPSULE Yes Daily [facility] Linagliptin (Tradjenta) 5 Mg TABLET Linagliptin (Tradjenta) 5 Mg TABL ET Yes 5 Daily [facility] Lisinopril (Prinivil) 20 Mg TABLET Lisinopril (Prinivil) 20 Mg TABLET Yes 20 Daily [facility] Cyanocobalamin (Vitamin B-12) (B-12) 1,000 Mcg TABLET. ER Cyanocobalamin (Vitamin B-12) (B-12) 1,000 Mcg TABLET.ER 2019-11-18 00:00:00 No 1 Daily [facility] D3 D3 2019-11-18 00:00:00 No 25 [facility] Metoprolol Tartrate Metoprolol Tartrate 2019-11-18 00:00:00 No 25 Twice A Day [facility] Losartan Potassium Losartan Potassium 2019-02-10 00:00:00 No 100 Daily [facility] Metformin Hcl Metformin Hcl 2019-02-10 00:00:00 No 500 Daily [facility] Omeprazole Omeprazole 2019-02-10 00:00:00 No 20 Carmen ly [facility] Promethazine Hcl (Phenergan) 25 Mg/1 Ml AMPUL Prometha zine Hcl (Phenergan) 25 Mg/1 Ml AMPUL 2019-02-10 00:00:00 No 25 As Needed as needed for Nausea [facility] Cefuroxime Axetil (Cefuroxime) 250 Mg TABLET Cefuroxim e Axetil (Cefuroxime) 250 Mg TABLET 2018-08-29 00:00:00 No 250 Every 12 Hours [facility] Losartan Potassium Losartan Potassium 2018-08-29 00:00:00 No 100 Daily [facility] Hydrochlorothiazide Hydrochlorothiazide 2018-07-21 00:00:00 No 12.5 Daily@0600 [facility] Linagliptin (Tradjenta) 5 Mg TABLET Linagliptin (Tradjenta) 5 Mg TABLET 2018-07-21 00:00:00 No 5 Daily [facility] Linzess Linzess 2018-07-21 00:00:00 No 145 Daily [facility] Acetaminophen Acetaminophen 2018-07-19 00:00:00 No 325 Daily as needed for Pain [facility] Tramadol Hcl (Ultram 50MG*) 50 Mg TAB Tramadol Hcl (Ultram 50MG* ) 50 Mg TAB 2018-07-19 00:00:00 No 37.5 As Needed for Pain [facility] Metformin Hcl Metformin Hcl 2018-07-17 00:00:00 No 500 Twice A Day [facility] Omeprazole Omeprazole 2018-07-17 00:00:00 No 1 Carmen ly [facility] Valsartan (Diovan) 80 Mg TAB Valsartan (Diovan) 80 Mg TAB 2018-07-17 00:00:00 No 80 Daily [facility] Vital Signs Vital Name Observation Time Observation Value Comments Source Weight 2020-03-25 16:16:00 129 [lb_av] [facility] BMI (Body Mass Index) 2020-03-25 16:16:00 26.1 kg/m2 [facility] Weight 2019-12-27 19:48:00 129 [lb_av] [facility] BMI (Body Mass Index) 2019-12-27 19:48:00 26.1 kg/m2 [facility] Weight 2019-12-15 07:13:00 129 [lb_av] [facility] BMI (Body Mass Index) 2019-12-15 07:13:00 26.1 kg/m2 [facility] Body Temperature 2019-11-24 12:59:00 97.6 [degF] [facility] Temperature Oral (F) 2011-08-27 18:00:00 98.3 [facility] [place] Diastolic (mm Hg) 2011-08-27 18:00:00 [facility] [place] Systolic (mm Hg) 2011-08-27 18:00:00 [facility] [place] Respitory Rate 2011-08-27 18:00:00 [facility] [place] Heart Rate 2011-08-27 18:00:00 [facility] Temperature Oral (F) 2011-08-27 14:00:00 98.3 F [facility] Heart Rate 2011-08-27 14:00:00 [facility] Respitory Rate 2011-08-27 14:00:00 [facility] Systolic (mm Hg) 2011-08-27 14:00:00 [facility] [place] Diastolic (mm Hg) 2011-08-27 14:00:00 [facility] [place] Systolic (mm Hg) 2011-08-27 10:00:00 [facility] [place] Respitory Rate 2011-08-27 10:00:00 [facility] Diastolic (mm Hg) 2011-08-27 10:00:00 [facility] [place] Temperature Oral (F) 2011-08-27 10:00:00 98.0 F [facility] [place] Heart Rate 2011-08-27 10:00:00 [facility] Height 2011-08-25 01:24:00 152.40 cm [facility] Weight 2011-08-25 01:24:00 [facility] Weight 2011-08-21 17:08:00 [facility] Height 2011-08-21 17:08:00 154.94 cm [facility] Temperature Oral (F) 2011-05-23 06:12:00 98.5 F [facility] [place] Respitory Rate 2011-05-23 06:12:00 [facility] Diastolic (mm Hg) 2011-05-23 06:12:00 [facility] [place] Heart Rate 2011-05-23 06:12:00 [facility] [place] Systolic (mm Hg) 2011-05-23 06:12:00 Jacob [facility] [place] Temperature Oral (F) 2011-05-23 06:02:00 98.3 F [facility] [place] Heart Rate 2011-05-23 06:02:00 [facility] Respitory Rate 2011-05-23 06:02:00 [facility] [place] Systolic (mm Hg) 2011-05-23 06:02:00 [facility] Diastolic (mm Hg) 2011-05-23 06:02:00 [facility] [place] Systolic (mm Hg) 2011-05-23 04:27:00 [facility] [place] Respitory Rate 2011-05-23 04:27:00 [facility] Heart Rate 2011-05-23 04:27:00 [facility] Diastolic (mm Hg) 2011-05-23 04:27:00 [facility] Temperature Oral (F) 2011-05-23 04:23:00 98.0 F [facility] [place] Height 2011-05-23 01:11:00 152.4 cm [facility] [place] Weight 2011-05-23 01:11:00 [facility] [place] Procedures Procedure Date / Time Performed Performing Clinician [facility] e Computed tomography of abdomen and pelvis with contrast 00:00:00 [facility] Computed tomography of abdomen and pelvis with contrast 00:00:00 [facility] Computed tomography of brain without radiopaque contrast 2019-12 00:00:00 [facility] Computed tomography of chest without contrast 2019-12-27 00:00:0 0 [facility] EMERGENCY DEPT VISIT 2019-12-27 00:00:00 [facility] Computed tomography of brain without radiopaque contrast 2019-12 00:00:00 [facility] EMERGENCY DEPT VISIT 2019-12-15 00:00:00 [facility] EGD BIOPSY SINGLE/MULTIPLE 2019-11-24 00:00:00 Bev REDMOND [facility] Computed tomography of abdomen and pelvis with contrast 2019 00:00:00 ZAINAB CHUNG [facility] X-ray of chest, two views 2019-09-28 00:00:00 ZAINAB CHUNG [facility] Plan of Care Planned Activity Planned Date Details Comments Source Instructions Diverticulitis [facility] Encounters Start Date/Time End Date/Time Encounter Type Admission Type Attendi [facility] Care Department Encounter ID Source 2020-03-25 16:27:00 2020-03-25 22:01:00 Departed Emergency Room 1 JOVANI VERONICA [facility] [id number] [facility] 2020-02-24 16:08:00 2020-02-24 20:36:00 Departed Emergency Room 1 Jonathan Garza [facility] [id number] [facility] 2020-01-27 08:17:00 2020-01-27 08:17:00 Registered Clinic 3 JAY PETERSEN [facility] [id number] [facility] 2019-12-27 19:29:00 2019-12-28 01:09:00 Departed Emergency Room 1 ZAINAB CHUNG [facility] [id number] [facility] 2019-12-15 07:07:00 2019-12-15 09:41:00 Departed Emergency Room 1 CRIS SMITH MD [facility] [id number] [facility] 2019-11-24 08:07:00 2019-11-24 08:07:00 Registered Surgical Day Care [facility] [id number] [facility] 2019-10-31 15:23:00 2019-10-31 19:07:00 Departed Emergency Room 1 DAVIDA VALE [facility] [id number] [facility] 2019-09-28 08:19:00 2019-10-01 12:54:00 Discharged Inpatient 1 HAYLEY PETERSEN [facility] [id number] [facility] 2019-09-01 16:04:00 2019-09-01 23:59:00 Outpatient Jovani Soares [facility] M[facility]IP [id number] 2019-04-28 14:18:00 2019-04-28 18:43:00 Departed Emergency Room 1 FLORENCE HOOPER [facility] [id number] [facility] 2019-03-21 12:22:00 2019-03-21 12:22:00 Registered Clinic 3 FAVIOLA BAEZ [facility] [id number] [facility] 2019-02-14 08:53:00 2019-02-14 23:59:00 Outpatient Jovani Soares HOIP HOIP [id number] 2019-02-10 16:23:00 2019-02-10 20:20:00 Departed Emergency Room 1 EMILY ABDULLAHI [facility] [id number] [facility] 2019-02-02 16:24:00 2019-02-02 23:59:00 Outpatient Fariba Soares [facility] [id number] 2019-02-02 16:24:00 2019-02-02 16:24:00 Outpatient [id number] 2018-08-29 06:34:00 2018-08-29 06:34:00 Registered Surgical Day Care [facility] [id number] [facility] 2018-08-11 14:48:00 2018-08-11 19:37:00 Departed Emergency Room 1 DAVIDA ENAMORADO [facility] [id number] [facility] 2018-08-05 13:08:00 2018-08-05 13:08:00 Registered Clinic 3 LIGIA CERVANTES [facility] [id number] [facility] 2018-07-19 21:32:00 2018-07-21 14:23:00 Discharged Inpatient (obs) 1 STELLA FUNES [facility] [id number] [facility] 2018-07-17 22:57:00 2018-07-18 01:52:00 Departed Emergency Room [facility] [id number] [facility] 2018-07-16 12:30:00 2018-07-16 12:30:00 Registered Clinic 3 LIGIA CERVANTES [facility] [id number] [facility] 2017-11-28 11:45:00 2017-11-28 11:45:00 Registered Clinic 3 SERGEY JILLIAN [facility] [id number] [facility] Results Test Description Test Time Test Comments Results Result Comments Source CT ABDOMEN/PELVIS W 2020-03-25 21:25:00 [facility] [address] [place] [address] Patient Name: SHARLENE MOORE MR #: [id number] : 1935 Age/Sex: 85/F Req #: [id number] Adm Physician: Ordered by: JOVANI VERONICA MD Report #: [id number] Location: ER Room/Bed: Procedure: [id number] CT/CT ABDOMEN/PELVIS W Exam Date: 03/25/20 Exam Time: 2100 REPORT STATUS: Signed EXAM: CT Abdomen and Pelvis WITH contrast INDICATION: LLQ PAIN, EVAL FOR DIVERTICULITIS COMPARISON: CT dated 02/24/2020. TECHNIQUE: Abdomen and pelvis were scanned utilizing a multidetector helical scanner from the lung base to the pubic symphysis after administration of IV contrast. Coronal and sagittal reformations were obtained. Routine protocol was performed. Scan was performed when during portal venous phase. IV CONTRAST: 100 mL of Isovue 370 ORAL CONTRAST: CT dated 07/16/2018 COMPLICATIONS: None RADIATION DOSE: Total DLP: 183.81 mGy*cm Estimated effective dose: (DLP x 0.015 x size factor) mSv CTDIvol has been reviewed. It is below the limits set by the Radiation Protocol Committee (RPC). Dose modulation, iterative reconstruction, and/or weight based adjustment of the mA/kV was utilized to reduce the radiation dose to as low as reasonably achievable. FINDINGS: LINES and TUBES: None. LOWER THORAX: Unremarkable HEPATOBILIARY: No focal hepatic lesions. Unchanged minimal intrahepatic biliary dilation likely post cholecystectomy reservoir effect. GALLBLADDER: There are cholecystectomy clips. No wall thickening. SPLEEN: No splenomegaly. PANCREAS: No focal masses or ductal dilatation. ADRENALS: No adrenal nodules KIDNEYS/URETERS: Kidneys enhance symmetrically. No hydronephrosis. Unchanged small left renal cyst. No stones. GI TRACT: No abnormal distention, wall thickening, or evidence of bowel obstruction. There are diverticula within the colon without evidence of diverticulitis. Appendix is not clearly identified. There is however no fat stranding or adenopathy in the right lower quadrant to suggest appendicitis. PELVIC ORGANS/BLADDER: No significant abnormality. Urinary bladder un remarkable. LYMPH NODES: No lymphadenopathy. VESSELS: Atherosclerosis without aneurysmal dilatation of the abdominal aorta. PERITONEUM / RETROPERITONEUM: No free air or fluid. BONES: There are degenerative changes in the spine. IMPRESSION: 1. No acute abdominopelvic process. 2. Mild colonic diverticulosis without evidence of acute diverticulitis. Signed by: Jai Stanton MD on 03/25/2020 9:37 PM Dictated By: JAI STANTON MD 36 Transcribed By: JOHN on 03/25/202136 COPY TO: JOVANI VERONICA MD Urine color determination 2020-03-25 19:40:00 Test Item Urine Color (test code = 5778-6) YELLOW [facility]LLOW [facility] hhaecma1101-42-78 19:40:00* Test Item Value Reference Range Interpretation Comments Urine Clarity (test code = 64551-6) SL CLOUDY CLEAR [facility] gravity of Urine by Test strip 2020-03-25 19:40:00* Test Item Value Reference Range Interpretation Comments Urine Specific [place] (test code = 5811-5) 1.020 1.010-1.02 5 [facility] pH measurement by automated test wgeey2293-05-05 19:40:00* Test Item Value Reference Range Interpretation Comments Urine pH (test code = 66987-2) 7 5-7 [facility] TylerU[facility] leukocyte esterase detection by weuyxwnr9510-16-45 19:40:00* Test Item Value Reference Range Interpretation Comments Urine Leukocyte Esterase (test code = 5799-2) MODERATE NEGATIVE [facility] TylerU[facility] nitrite jrjdmdtzk7092-54-50 19:40:00* Test Item Value Reference Range Interpretation Comments Urine Nitrite (test code = 88105-7) NEGATIVE NEGATIVE [facility] TylerU[facility] protein measurement by test strip (mass/volume)2020-03-25 19:40:00* Test Item Value Reference Range Interpretation Comments Urine Protein (test code = 5804-0) NEGATIVE NEGATIVE [facility] TylerU[facility] glucose iidczebrk6645-77-53 19:40:00* Test Item Value Reference Range Interpretation Comments Urine Glucose (UA) (test code = 2349-9) NEGATIVE NEGATIVE [facility] TylerU[facility] ketones detection by automated test ipsbx2467-02-60 19:40:00* Test Item Value Reference Range Interpretation Comments Urine Ketones (test code = 84197-4) 1+ NEGATIVE [facility] TylerUrine urobilinogen measurement by test strip (mass/volume)2020-03-25 19:40:00* Test Item Value Reference Range Interpretation Comments Urine Urobilinogen (test code = 47490-2) 0.2 0.2-1 [facility] Tyler[facility] total bilirubin measurement (mass/volume)2020-03-25 19:40:00* Test Item Value Reference Range Interpretation Comments Urine Bilirubin (test code = 1978-6) NEGATIVE NEGATIVE [facility] TylerU[facility] erythrocytes ibtzofcbt3100-21-25 19:40:00* Test Item Value Reference Range Interpretation Comments Urine Blood (test code = 16876-3) TRACE NEGATIVE [facility] TylerAutomated urine sediment leukocyte count by microscopy (number/high power field)2020-03-25 19:40:00* Test Item Value Reference Range Interpretation Comments Urine WBC (test code = 5821-4) 11-20 0-5 [facility] TylerErythrocytes detection in urine sediment by light wziuwidqld9763-17-29 19:40:00* Test Item Value Reference Range Interpretation Comments Urine RBC (test code = 11378-3) 0-5 0-5 [facility] TylerBacteria detection in urine sediment by light bbguqhrkil0376-29-88 19:40:00* Test Item Value Reference Range Interpretation Comments Urine Bacteria (test code = 48902-8) FEW NONE [facility] TylerEpithelial cells detection in urine sediment by light vdhdnqzgdn1902-40-89 19:40:00* Test Item Value Reference Range Interpretation Comments Urine Epithelial Cells (test code = 12905-7) FEW NONE [facility] TylerBlood leukocytes automated count (number/volume)2020-03-25 19:10:00* Test Item Value Reference Range Interpretation Comments White Blood Count (test code = 6690-2) 7.39 4.8-10.8 [facility] TylerBlood erythrocytes automated count (number/volume)2020-03-25 19:10:00* Test Item Value Reference Range Interpretation Comments Red Blood Count (test code = 789-8) 4.02 3.6-5.1 [facility] TylerBlood hemoglobin measurement (moles/volume)2020-03-25 19:10:00* Test Item Value Reference Range Interpretation Comments Hemoglobin (test code = 58872-8) 12.3 12.0-16.0 [facility] TylerAutomated blood hematocrit (volume fraction)2020-03-25 19:10:00* Test Item Value Reference Range Interpretation Comments Hematocrit (test code = 4544-3) 38.3 34.2-44.1 [facility] TylerAutomated erythrocyte mean corpuscular bhmjgo9744-29-20 19:10:00* Test Item Value Reference Range Interpretation Comments Mean Corpuscular Volume (test code = 787-2) 95.3 81-99 [facility] TylerAutomated erythrocyte mean corpuscular hemoglobin (mass per erythrocyte)2020-03-25 19:10:00* Test Item Value Reference Range Interpretation Comments Mean Corpuscular Hemoglobin (test code = 785-6) 30.6 28-32 [facility] erythrocyte mean corpuscular hemoglobin concentration measurement (mass/volume)2020-03-25 19:10:00* Test Item Value Reference Range Interpretation Comments Mean Corpuscular Hemoglobin Concent (test code = 786-4) 32.1 31-35 [facility] TylerRDW CxzAg-Pzp4178-52-17 19:10:00* Test Item Value Reference Range Interpretation Comments Red Cell Distribution Width (test code = 59356-8) 13.4 11.7 -14.4 [facility]Aut[facility] blood platelet count (count/volume)2020-03-25 19:10:00* Test Item Value Reference Range Interpretation Comments Platelet Count (test code = 777-3) 225 140-360 [facility] blood segmented neutrophil count as percentage of total nyjrqqfruf8012-02-82 19:10:00* Test Item Value Reference Range Interpretation Comments Neutrophils (%) (Auto) (test code = 15159-1) 81.2 38.7-80.0 [facility] blood lymphocyte count as percentage ot total wjbvztvfcm6133-39-70 19:10:00* Test Item Value Reference Range Interpretation Comments Lymphocytes (%) (Auto) (test code = 736-9) 10.6 18.0-39.1 [facility] TylerAutomated blood monocyte count as percentage of total ewkunczwmp7781-20-09 19:10:00* Test Item Value Reference Range Interpretation Comments Monocytes (%) (Auto) (test code = 5905-5) 6.9 4.4-11.3 [facility] TylerAutomated blood eosinophil count as percentage of total mbjmgjzzak8490-07-77 19:10:00* Test Item Value Reference Range Interpretation Comments Eosinophils (%) (Auto) (test code = 713-8) 0.3 0.0-6.0 [facility] TylerAutomated blood basophil count as percentage of total weevlofvkm8744-73-50 19:10:00* Test Item Value Reference Range Interpretation Comments Basophils (%) (Auto) (test code = 706-2) 0.7 0.0-1.0 [facility] TylerFluoroscopic procedure less than one hour pluejrhb0900-22-16 19:10:00* Test Item Value Reference Range Interpretation Comments IM GRANULOCYTES % (test code = IM GRANULOCYTES %) 0.3 0.0- 1.0 [facility] TylerAutomated blood neutrophil count 2020-03-25 19:10:00* Test Item Value Reference Range Interpretation Comments Neutrophils # (Auto) (test code = 751-8) 6.0 2.1-6.9 [facility] TylerBlood lymphocytes count (number/volume) 2020-03-25 19:10:00* Test Item Value Reference Range Interpretation Comments Lymphocytes # (Auto) (test code = 71512-9) 0.8 1.0-3.2 [facility] TylerBlood monocytes automated count (number/volume)2020-03-25 19:10:00* Test Item Value Reference Range Interpretation Comments Monocytes # (Auto) (test code = 742-7) 0.5 0.2-0.8 [facility] TylerAutomated blood eosinophil count 2020-03-25 19:10:00* Test Item Value Reference Range Interpretation Comments Eosinophils # (Auto) (test code = 711-2) 0.0 0.0-0.4 [facility] TylerAutomated blood basophil count (count/volume)2020-03-25 19:10:00* Test Item Value Reference Range Interpretation Comments Basophils # (Auto) (test code = 704-7) 0.1 0.0-0.1 [facility] TylerFluoroscopic procedure less than one hour xyojghgh8658-55-84 19:10:00* Test Item Value Reference Range Interpretation Comments Absolute Immature Granulocyte (auto (lionel t code = Absolute Immature Granulocyte (auto) 0.02 0-0.1 [facility]um or plasma sodium measurement (moles/volume)2020-03-25 19:10:00* Test Item Value Reference Range Interpretation Comments Sodium Level (test code = 2951-2) 136 136-145 [facility]heasterum or plasma potassium measurement (moles/volume)2020-03-25 19:10:00* Test Item Value Reference Range Interpretation Comments Potassium Level (test code = 2823-3) 3.8 3.5-5.1 [facility] Southeasterum or plasma chloride measurement (moles/volume)2020-03-25 19:10:00* Test Item Value Reference Range Interpretation Comments Chloride Level (test code = 2075-0) 101 98-107 [facility] Southeasterum or plasma carbon dioxide, total measurement (moles/volume)2020-03-25 19:10:00* Test Item Value Reference Range Interpretation Comments Carbon Dioxide Level (test code = 2028-9) 25 22-29 [facility] Southeasterum or plasma anion eyp6376-02-06 19:10:00* Test Item Value Reference Range Interpretation Comments Anion Gap (test code = 39120-8) 13.8 8-16 [facility] Southeasterum or plasma urea nitrogen measurement (mass/volume)2020-03-25 19:10:00* Test Item Value Reference Range Interpretation Comments Blood Urea Nitrogen (test code = 3094-0) 14 7-26 [facility] Southeasterum or plasma creatinine measurement (mass/volume)2020-03-25 19:10:00* Test Item Value Reference Range Interpretation Comments Creatinine (test code = 2160-0) 0.75 0.57-1.11 [facility]heasterum or plasma urea nitrogen/creatinine mass gxkcd0528-88-70 19:10:00* Test Item Value Reference Range Interpretation Comments BUN/Creatinine Ratio (test code = 3097-3) 19 6-25 [facility] TylerEstimated glomerular filtration rate (GFR) whwbivyyrnydl2665-35-99 19:10:00* Test Item Value Reference Range Interpretation Comments Estimat Glomerular Filtration Rate (test code = 821753760) > 60 >60 Ranges were taken from the National Kidney Disease Education Program and the [facility] Foundation literature.Reference ranges:60 or greater: Akvjik91-21 ( for 3 consecutive months): Chronic kidney disease 15 or less: Kidney failureUT Health North Campus TylerGlucose lnowcgnwcxx5826-46-21 19:10:00* Test Item Value Reference Range Interpretation Comments Glucose Level (test code = SWX3018) 107 74-118 [facility]heasterum or plasma calcium measurement (mass/volume)2020-03-25 19:10:00* Test Item Value Reference Range Interpretation Comments Calcium Level (test code = 11244-9) 9.4 8.4-10.2 [facility] Southeasterum or plasma total bilirubin measurement (mass/volume)2020-03-25 19:10:00* Test Item Value Reference Range Interpretation Comments Total Bilirubin (test code = 1975-2) 0.4 0.2-1.2 [facility] TylerFluoroscopic procedure less than one hour pduinnvs3482-95-19 19:10:00* Test Item Value Reference Range Interpretation Comments Aspartate Amino Transf (AST/SGOT) (test code = Aspartate Amino Transf (AST/SGOT)) 26 5-34 [facility] Southeasterum or plasma alanine aminotransferase measurement (enzymatic activity/volume)2020-03-25 19:10:00* Test Item Value Reference Range Interpretation Comments Alanine Aminotransferase (ALT/SGPT) (test code = 1742-6) 23 0-55 [facility]heasterum or plasma protein measurement (mass/volume)2020-03-25 19:10:00* Test Item Value Reference Range Interpretation Comments Total Protein (test code = 2885-2) 7.8 6.5-8.1 [facility] Southeasterum or plasma albumin measurement (mass/volume)2020-03-25 19:10:00* Test Item Value Reference Range Interpretation Comments Albumin (test code = 1751-7) 4.5 3.5-5.0 [facility] TylerPlasma globulin measurement (mass/volume) 2020-03-25 19:10:00* Test Item Value Reference Range Interpretation Comments Globulin (test code = 53073-1) 3.3 2.3-3.5 [facility]heasterum or plasma albumin/globulin mass xgwdu5396-45-58 19:10:00* Test Item Value Reference Range Interpretation Comments Albumin/Globulin Ratio (test code = 1759-0) 1.4 0.8-2.0 [facility] Southeasterum or plasma alkaline phosphatase measurement (enzymatic activity/volume)2020-03-25 19:10:00* Test Item Value Reference Range Interpretation Comments Alkaline Phosphatase (test code = 6768-6) 87 40-150 [facility]heasterum or plasma amylase measurement (enzymatic activity/volume)2020-03-25 19:10:00* Test Item Value Reference Range Interpretation Comments Amylase Level (test code = 1798-8) 38 25-125 [facility]heasterum or plasma lipase measurement (enzymatic activity/volume)2020-03-25 19:10:00* Test Item Value Reference Range Interpretation Comments Lipase (test code = 3040-3) 8 8-78 [facility] TylerABDOMEN-1VIEW (KUB)2020-03-25 18:06:00 [facility] [address] [place] [address] Patient Name: SHARLENE MOORE MR #: [id number] : 1935 Age/Sex: 85/F Req #: [id number] Adm Physician: Ordered by: DAVIDA VALE eport #: [id number] Location: Room /Bed: Procedure: [id number] DX/ABDOMEN-1 VIEW (KUB) Exam Date: 03/25/20 Exam Time: 1645 REPORT STATUS: Signed Exam: Abdomi nal film Clinical History: Loss of appetite, abdominal pain., Left lower q uadrant pain today Comparison: CT abdomen and pelvis 02/24/2020 DISCU SSION: Frontal view of the abdomen shows a nonobstructive bowel gas pattern wi th mild amount of retained stool.There are no dilated, air-filled loops of bow el. There are no abnormal calcifications.No acute bone abnormality. IMPR ESSION: 1. Nonobstructive bowel gas pattern with mild retained stool. The staff physician below has personally reviewed this exam on the date of dic tation. Signed by: Dr. Albert Everett M.D. on 03/25/2020 6:08 PM Dictated By: ALBERT EVERETT MD 07 Transcribed By: JOHN on 03/25/201807 COPY TO: DAVIDA VALE DO CT ABDOMEN/PELVIS I0507-44-07 19:24:00 [place] [address] Patient Name: SHARLENE MOORE MR #: [id number] : 1935 Age/Sex: 85/F Req #: [id number] Adm Physician: Ordered by: Jonathan Garza MD Report #: [id number] Location: ER [facility]/Bed: Procedure: [id number] CT/CT ABDO MEN/PELVIS W Exam Date: 02/24/20 Exam Time: 1853 REPORT STATUS: Signed EXAMINATION: CT of the abdomen and pelvis with contrast. TECHNIQUE: Spiral CT images of the abdomen and pelvis were performed from the lung bases to the lesser tro chanters after the intravenous administration of 100 cc of Isovue 370 and the oral administration of water. Coronal and sagittal reformatted images were ob tained. COMPARISON: CT abdomen and pelvis 04/28/2019 and 09/28/2019 CLI NICAL HISTORY:Left lower quadrant pain, nausea DISCUSSION: ABDOME N/PELVIS: LOWER THORAX:Unremarkable. HEPATOBILIARY: No focal hepatic l esions. Mild to moderate prominence of the central intrahepatic bile ducts. T he common bile duct is borderline to minimally dilated, which measures 6-7 mm at the john hepatis. No radiopaque intraluminal filling defects. GALLBLA DDER: Not visualized. SPLEEN: No splenomegaly. PANCREAS: No focal masses or ductal dilatation. ADRENALS: No adrenal nodules. KIDNEYS/U RETERS: No hydronephrosis, renal or ureteral calculi or solid enhancing masses . Stable 1.4 cm fluid density simple cyst in the left inferior pole (coronal i mage 50). Mild prominence of the distal portion of the left ureter, with minim al wall enhancement (best seen in coronal image 62). No perinephric stranding. PELVIC ORGANS/BLADDER: Bladder is moderately distended. No focal lesions o r wall thickening. PERITONEUM/RETROPERITONEUM: No free air or fluid. LYMPH NODES: No intra-abdominal, retroperitoneal, pelvic or inguinal lymphade nopathy. VESSELS: The celiac trunk,superior and inferior mesenteric and jerica ateral renal arteries are patent The portal, superior mesenteric and splenic veins are patent. Atherosclerotic calcification of the abdominal aorta and pr oximal iliac vessels. GI TRACT: No bowel dilation or evidence of obstruct ion. No pericolonic inflammatory changes. A few scattered diverticula are note d in the sigmoid colon, without diverticulitis. BONES AND SOFT TISSUE: No aggressive lytic or suspicious focal sclerotic lesions. Degenerated disc in the lumbosacral spine, predominantly at L5-S1. Soft tissues are grossly unrem arkable. IMPRESSION: 1. No acute abdominopelvic abnormalities. Spe cifically, no acute abnormal findings in the left lower quadrant to explain th e patient's pain. 2. Moderately distended bladder. Correlate for bladder ou tlet obstruction. 3. Mild to moderate prominence of the central intrahepatic b ile ducts and borderline to minimal dilation of the common bile duct, likely r eflecting postcholecystectomy status. No radiopaque intraluminal filling defec ts are noted. Signed by: Dr. Albert Everett M.D. on 02/24/2020 7:33 PM Dictated By: ALBERT EVERETT MD 32 Transcribed By: JOHN on 02/24/201932 COPY TO: JONATHAN GARZA MD Troponin I measurement by highly sensitive enzyme pqohjkxgbjq8261-42-76 17:23:00* Test Item Value Reference Range Interpretation Comments Troponin I (test code = 16648-9) 0.009 0-0.300 [facility] TylerTransitional cells detection in urine sediment by light oejtfelesd4971-11-71 16:11:00* Test Item Value Reference Range Interpretation Comments Urine Transitional Epithelial Cells (test code = 8249-5) FEW NONE [facility] TylerMucus detection in urine sediment by light jvkguqwfnz3146-44-48 16:11:00* Test Item Value Reference Range Interpretation Comments Urine Mucus (test code = 8247-9) MANY RARE [facility]EL WVKMOH1169-92-01 13:26:00 [place] [address] Patient Name: SHARLENE MOORE MR #: [id number] : 1935 Age/Sex: 84/F Req #: [id number] Adm Physician: Ordered by: JAY PETERSEN MD Report #: [id number] Location: DX Room/Bed: Procedure: [id number] DX/SMALL BOWEL SERIES Exam Date: 01/27/20 Exam Time: 08 REPORT STATUS: Signed Small bowel follow -through Comparison: None Clinical History: Back tarry stools. Abdominal pain since . Total Patient Fluoro Time: 2.1 minutes Radiation dose: 10. 0 mGy Kerma-area. Total number of images submitted: 8. Sample Grinder radiographs were obtained. After oral ingestion of barium overhead x-ray images were obta ined over the abdomen periodically until the barium across the ileocecal valve . Spot compression views of the areas of interest were obtained through photos pot images additionally. Report: Sample Grinder: Nonobstructive bowel gas pattern . Copious amounts of fecal matter. No calculi. No pneumatosis. No air over the liver. 5 lumbar type vertebrae. Degenerative changes of the bones. No aggress dayna bony lesions seen. Lower chest unremarkable. There is no evidence of intrinsic or extrinsic mass effect or mass involving the stomach or duodenum. The colon was visualized in 2 hours. The terminal ileum is not well-visualize d. There is no evidence of bowel obstruction. The small bowel loops are non- dilated and the small bowel folds are none thickened. Incidentally noted are two Small bowel diverticula on the mesenteric border. Impression: Unrem arkable small bowel follow through. Signed by: Elias Ferrer MD on 01/26 1:34 PM Dictated By: ELIAS FERRER MD 1334 Transcribed By: JOHN on 01/27/20 1334 COPY TO: JAY PETERSEN MD Capillary blood glucose measurement by glucometer (mass/volume)2020-01-27 11:35:00* Test Item Value Reference Range Interpretation Comments Bedside Glucose (test code = 71593-9) 101 70-120 Meter ID: [id number] [facility] CampusFluoroscopic procedure less than one hour jrmoriem8972-88-10 11:42:00* Test Item Value Reference Range Interpretation Comments [...] complexity tests.Testing performed by Clinical Path[facility] [id number] [place], [place] [phone] Director: Carlos Man M.D.CLIA # [id number] [facility] CampusCT CHEST LR0001-29-21 23:38:00 [place] [address] Patient Name: SHARLENE MOORE MR #: [id number] : 1935 Age/Sex: 84/F Req #: [id number] Adm Physician: Ordered by: ZAINAB CHUNG DO Report #: [id number] Location: ER Room/Bed: Procedure: [id number] CT/CT CHEST WO Exam Date: 12/27/19 Exam Time: 2154 REPORT STATUS: Signed EXAM: CT Chest WITHOUT cont rast INDICATION: Weakness, elevated blood pressure COMPARISON: None TECHNIQUE: Chest was scanned utilizing a multidetector helical scanner fro m the lung apex through the level of the adrenal glands without administration of IV contrast. Absence of intravenous contrast decreases sensitivity for det ection of lymphadenopathy and vascular pathology. Coronal and sagittal reforma tions were obtained. Routine protocol was performed. IV CONTRAST: None COMPLICATIONS: None RADIATION DOSE: Total DLP: 397 mGy*cm Estimated effective dose: (DLP x 0.014 x size factor) mSv CTDIvol h as been reviewed. It is below the limits set by the Radiation Protocol Committ ee (RPC). Dose modulation, iterative reconstruction, and/or weight based adjustment of the mA/kV was utilized to reduce the radiation dose to as low as reasonably achievable. FINDINGS: LINES/ TUBES: None. LUNGS AND AIRWAYS: The lungs are unremarkable. Airways are normal. PLE URA: The pleural spaces are clear. HEART AND MEDIASTINUM: Multiple thyroid nodules, largest measures 1.5 cm. No mediastinal, hilar or axillary lymphade nopathy. The heart is normal in size. There is no pericardial effusion. Calcifications of the aorta and major branches including the coronary arteries . UPPER ABDOMEN: Pancreatic atrophy. BONES: The visualized bony thorax is within normal limits. SOFT TISSUES: Unremarkable. IMPRESSION: Triple vessel coronary artery calcific atherosclerosis. Multiple thyroid nod ules, largest measures 1.5 cm. Recommend thyroid ultrasound for further evalua tion. Signed by: Adrian Murdock DO on 12/27/2019 11:42 PM Dictated B y: ADRIAN MURDOCK DO 2342 COPY TO: ZAINAB CHUNG CT BRAIN [id number] 22:35:00 [place] [address] Patient Name: SHARLENE MOORE MR #: [id number] : 1935 Age/Sex: 84/F Req #: [id number] Adm Physician: Ordered by: ZAINAB CHUNG DO Report #: [id number] Location: ER Room/Bed: Procedure: [id number] CT/CT BRAIN WO Exam Date: 12/27/19 Exam Time: 2154 REPORT STATUS: Signed CT BRAIN WO HISTORY: W efeess, high blood pressure COMPARISON: Head CT 12/15/2019 Technique: Noncontrast axial scans were obtained from skull base to the vertex. Coronal and sagittal reconstructions obtained from the axial data. One or more of th e following dose reduction techniques were used: Automated exposure control, adjustment of the mA and/or kV according to patient size, and/or utilization of iterative reconstruction technique. DISCUSSION: Scalp/Skull: Unrema rkable. Brain sulci: Mildly prominent. Ventricles: Compensatory dilatation. Extra-axial spaces: No masses or fluid collections. Carotid siphon calcifica tions are present. Parenchyma: Mild bilateral deep white matter hypodens ity is likely chronic microvascular ischemic change. Otherwise, no masses, hemorrhage, or large vascular territory acute infarct. Dural sinuses: No a bnormal densities. Sellar/Suprasellar region: Intact. Skull base: Intact. 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 IMPRES JOHN: 1. No acute intracranial abnormalities. 2. Mild supratentorial chron ic microvascular ischemic change. Mild generalized cerebral volume loss. Signed by: Dr. Rishi Shukla M.D. on 12/27/2019 10:40 PM Dictated By: RISHI SHUKLA MD 39 Transcribed By: JOHN on 12/27/192239 COPY TO: ZAINAB CHUNG DO Blood leukocytes automated count (number/volume)2019-12-27 20:02:00* Test Item Value Reference Range Interpretation Comments White Blood Count (test code = 6690-2) 7.05 4.8-10.8 [facility] TylerBlood erythrocytes automated count (number/volume)2019-12-27 20:02:00* Test Item Value Reference Range Interpretation Comments Red Blood Count (test code = 789-8) 3.88 3.6-5.1 [facility] TylerBlood hemoglobin measurement (moles/volume)2019-12-27 20:02:00* Test Item Value Reference Range Interpretation Comments Hemoglobin (test code = 53035-2) 11.8 12.0-16.0 [facility] TylerAutomated blood hematocrit (volume fraction)2019-12-27 20:02:00* Test Item Value Reference Range Interpretation Comments Hematocrit (test code = 4544-3) 36.4 34.2-44.1 [facility] TylerAutomated erythrocyte mean corpuscular bebrhe0638-51-03 20:02:00* Test Item Value Reference Range Interpretation Comments Mean Corpuscular Volume (test code = 787-2) 93.8 81-99 [facility] TylerAutomated erythrocyte mean corpuscular hemoglobin (mass per erythrocyte)2019-12-27 20:02:00* Test Item Value Reference Range Interpretation Comments Mean Corpuscular Hemoglobin (test code = 785-6) 30.4 28-32 [facility] TylerAutomated erythrocyte mean corpuscular hemoglobin concentration measurement (mass/volume)2019-12-27 20:02:00* Test Item Value Reference Range Interpretation Comments Mean Corpuscular Hemoglobin Concent (test code = 786-4) 32.4 31-35 [facility] TylerRDW UqoBv-Otq8636-16-20 20:02:00* Test Item Value Reference Range Interpretation Comments Red Cell Distribution Width (test code = 15083-4) 13.3 11.7 -14.4 [facility] TylerAutomated blood platelet count (count/volume)2019-12-27 20:02:00* Test Item Value Reference Range Interpretation Comments Platelet Count (test code = 777-3) 321 140-360 [facility] TylerAutomated blood segmented neutrophil count as percentage of total jjpohfxgku1313-53-20 20:02:00* Test Item Value Reference Range Interpretation Comments Neutrophils (%) (Auto) (test code = 41521-9) 80.2 38.7-80.0 [facility] TylerAutomated blood lymphocyte count as percentage ot total gityvyudso1476-88-49 20:02:00* Test Item Value Reference Range Interpretation Comments Lymphocytes (%) (Auto) (test code = 736-9) 12.2 18.0-39.1 [facility] TylerAutomated blood monocyte count as percentage of total yrqekmfwwc6523-57-51 20:02:00* Test Item Value Reference Range Interpretation Comments Monocytes (%) (Auto) (test code = 5905-5) 6.1 4.4-11.3 [facility] TylerAutomated blood eosinophil count as percentage of total eyauqaxjjx3709-73-73 20:02:00* Test Item Value Reference Range Interpretation Comments Eosinophils (%) (Auto) (test code = 713-8) 0.6 0.0-6.0 [facility] TylerAutomated blood basophil count as percentage of total nlvjzubbvh9748-83-04 20:02:00* Test Item Value Reference Range Interpretation Comments Basophils (%) (Auto) (test code = 706-2) 0.6 0.0-1.0 [facility] TylerFluoroscopic procedure less than one hour jieabuxh3229-54-84 20:02:00* Test Item Value Reference Range Interpretation Comments IM GRANULOCYTES % (test code = IM GRANULOCYTES %) 0.3 0.0- 1.0 [facility] TylerAutomated blood neutrophil count 2019-12-27 20:02:00* Test Item Value Reference Range Interpretation Comments Neutrophils # (Auto) (test code = 751-8) 5.7 2.1-6.9 [facility] TylerBlood lymphocytes count (number/volume) 2019-12-27 20:02:00* Test Item Value Reference Range Interpretation Comments Lymphocytes # (Auto) (test code = 81063-0) 0.9 1.0-3.2 [facility] TylerBlood monocytes automated count (number/volume)2019-12-27 20:02:00* Test Item Value Reference Range Interpretation Comments Monocytes # (Auto) (test code = 742-7) 0.4 0.2-0.8 [facility] TylerAutomated blood eosinophil count 2019-12-27 20:02:00* Test Item Value Reference Range Interpretation Comments Eosinophils # (Auto) (test code = 711-2) 0.0 0.0-0.4 [facility] TylerAutomated blood basophil count (count/volume)2019-12-27 20:02:00* Test Item Value Reference Range Interpretation Comments Basophils # (Auto) (test code = 704-7) 0.0 0.0-0.1 [facility] TylerFluoroscopic procedure less than one hour kwskagkr3129-45-60 20:02:00* Test Item Value Reference Range Interpretation Comments Absolute Immature Granulocyte (auto (lionel t code = Absolute Immature Granulocyte (auto) 0.02 0-0.1 [facility] TylerUrine color qesgyjhdeooqp1950-63-61 20:02:00* Test Item Value Reference Range Interpretation Comments Urine Color (test code = 5778-6) YELLOW YELLOW [facility] TylerUrine yplaucv8912-92-81 20:02:00* Test Item Value Reference Range Interpretation Comments Urine Clarity (test code = 46570-1) CLEAR CLEAR [facility]pecific gravity of Urine by Test strip 2019-12-27 20:02:00* Test Item Value Reference Range Interpretation Comments Urine Specific [place] (test code = 5811-5) 1.010 1.010-1.02 5 [facility] TylerU[facility] pH measurement by automated test dasjq0056-26-25 20:02:00* Test Item Value Reference Range Interpretation Comments Urine pH (test code = 97008-5) 6 5-7 [facility] TylerUrine leukocyte esterase detection by xbpglkqj2228-23-83 20:02:00* Test Item Value Reference Range Interpretation Comments Urine Leukocyte Esterase (test code = 5799-2) SMALL NEGATIVE [facility] TylerUrine nitrite sxdfoodll1306-18-73 20:02:00* Test Item Value Reference Range Interpretation Comments Urine Nitrite (test code = 85513-6) NEGATIVE NEGATIVE [facility] TylerUrine protein measurement by test strip (mass/volume)2019-12-27 20:02:00* Test Item Value Reference Range Interpretation Comments Urine Protein (test code = 5804-0) NEGATIVE NEGATIVE [facility] TylerUrine glucose kjahvgndm3036-37-42 20:02:00* Test Item Value Reference Range Interpretation Comments Urine Glucose (UA) (test code = 2349-9) NEGATIVE NEGATIVE [facility] TylerUrine ketones detection by automated test mross5664-95-36 20:02:00* Test Item Value Reference Range Interpretation Comments Urine Ketones (test code = 24670-2) NEGATIVE NEGATIVE [facility] TylerUrine urobilinogen measurement by test strip (mass/volume)2019-12-27 20:02:00* Test Item Value Reference Range Interpretation Comments Urine Urobilinogen (test code = 39159-6) 0.2 0.2-1 [facility] TylerUrine total bilirubin measurement (mass/volume)2019-12-27 20:02:00* Test Item Value Reference Range Interpretation Comments Urine Bilirubin (test code = 1978-6) NEGATIVE NEGATIVE [facility] TylerUrine erythrocytes obtmgxxoa2309-88-59 20:02:00* Test Item Value Reference Range Interpretation Comments Urine Blood (test code = 55363-4) TRACE NEGATIVE [facility] TylerAutomated urine sediment leukocyte count by microscopy (number/high power field)2019-12-27 20:02:00* Test Item Value Reference Range Interpretation Comments Urine WBC (test code = 5821-4) 6-10 0-5 [facility] TylerErythrocytes detection in urine sediment by light bdhueszxdv9724-40-34 20:02:00* Test Item Value Reference Range Interpretation Comments Urine RBC (test code = 72202-1) 6-10 0-5 [facility] TylerBacteria detection in urine sediment by light aczsdmctic1973-53-01 20:02:00* Test Item Value Reference Range Interpretation Comments Urine Bacteria (test code = 57905-9) RARE NONE [facility] TylerEpithelial cells detection in urine sediment by light bgajundhjf1535-43-96 20:02:00* Test Item Value Reference Range Interpretation Comments Urine Epithelial Cells (test code = 97565-2) FEW NONE [facility]asterum or plasma sodium measurement (moles/volume)2019-12-27 20:02:00* Test Item Value Reference Range Interpretation Comments Sodium Level (test code = 2951-2) 134 136-145 [facility]heasterum or plasma potassium measurement (moles/volume)2019-12-27 20:02:00* Test Item Value Reference Range Interpretation Comments Potassium Level (test code = 2823-3) 4.5 3.5-5.1 [facility]heasterum or plasma chloride measurement (moles/volume)2019-12-27 20:02:00* Test Item Value Reference Range Interpretation Comments Chloride Level (test code = 2075-0) 103 98-107 [facility]heasterum or plasma carbon dioxide, total measurement (moles/volume)2019-12-27 20:02:00* Test Item Value Reference Range Interpretation Comments Carbon Dioxide Level (test code = 2028-9) 25 22-29 [facility]heasterum or plasma anion qnk7925-17-49 20:02:00* Test Item Value Reference Range Interpretation Comments Anion Gap (test code = 66781-6) 10.5 8-16 [facility]asterum or plasma urea nitrogen measurement (mass/volume)2019-12-27 20:02:00* Test Item Value Reference Range Interpretation Comments Blood Urea Nitrogen (test code = 3094-0) 14 7-26 [facility]asterum or plasma creatinine measurement (mass/volume)2019-12-27 20:02:00* Test Item Value Reference Range Interpretation Comments Creatinine (test code = 2160-0) 0.79 0.57-1.11 [facility]asterum or plasma urea nitrogen/creatinine mass admbk3046-12-25 20:02:00* Test Item Value Reference Range Interpretation Comments BUN/Creatinine Ratio (test code = 3097-3) 18 6-25 [facility] TylerEstimated glomerular filtration rate (GFR) pxqhiywztmhtz3689-73-42 20:02:00* Test Item Value Reference Range Interpretation Comments Estimat Glomerular Filtration Rate (test code = 834032712) > 60 >60 Ranges were taken from the National Kidney Disease Education Program and the [facility] [employer] literature.Reference ranges:60 or greater: Nbilec78-64 ( for 3 consecutive months): Chronic kidney disease 15 or less: Kidney failureUT Health [facility] Campus TylerGlucose wdfkjhtuhgn9819-84-28 20:02:00* Test Item Value Reference Range Interpretation Comments Glucose Level (test code = DQI6671) 100 74-118 [facility]asterum or plasma calcium measurement (mass/volume)2019-12-27 20:02:00* Test Item Value Reference Range Interpretation Comments Calcium Level (test code = 73932-6) 9.7 8.4-10.2 [facility]asterum or plasma total bilirubin measurement (mass/volume)2019-12-27 20:02:00* Test Item Value Reference Range Interpretation Comments Total Bilirubin (test code = 1975-2) 0.2 0.2-1.2 [facility] TylerFluoroscopic procedure less than one hour yatyqzsj3171-12-87 20:02:00* Test Item Value Reference Range Interpretation Comments Aspartate Amino Transf (AST/SGOT) (test code = Aspartate Amino Transf (AST/SGOT)) 23 5-34 [facility]heasterum or plasma alanine aminotransferase measurement (enzymatic activity/volume)2019-12-27 20:02:00* Test Item Value Reference Range Interpretation Comments Alanine Aminotransferase (ALT/SGPT) (test code = 1742-6) 20 0-55 [facility]asterum or plasma protein measurement (mass/volume)2019-12-27 20:02:00* Test Item Value Reference Range Interpretation Comments Total Protein (test code = 2885-2) 7.6 6.5-8.1 [facility]heasterum or plasma albumin measurement (mass/volume)2019-12-27 20:02:00* Test Item Value Reference Range Interpretation Comments Albumin (test code = 1751-7) 3.7 3.5-5.0 [facility] TylerPlasma globulin measurement (mass/volume) 2019-12-27 20:02:00* Test Item Value Reference Range Interpretation Comments Globulin (test code = 48589-4) 3.9 2.3-3.5 [facility]asterum or plasma albumin/globulin mass pxuiu8036-30-88 20:02:00* Test Item Value Reference Range Interpretation Comments Albumin/Globulin Ratio (test code = 1759-0) 0.9 0.8-2.0 [facility]heasterum or plasma alkaline phosphatase measurement (enzymatic activity/volume)2019-12-27 20:02:00* Test Item Value Reference Range Interpretation Comments Alkaline Phosphatase (test code = 6768-6) 113 40-150 [facility] TylerBNP Fdz-eKth4021-58-20 20:02:00* Test Item Value Reference Range Interpretation Comments B-Type Natriuretic Peptide (test code = 75264-2) 27.2 0-100 [facility]heasterum or plasma creatine kinase measurement (enzymatic activity/volume)2019-12-27 20:02:00* Test Item Value Reference Range Interpretation Comments Creatine Kinase (test code = 2157-6) 34 29-168 [facility]asterum or plasma creatine kinase MB measurement (mass/volume)2019-12-27 20:02:00* Test Item Value Reference Range Interpretation Comments Creatine Kinase MB (test code = 45085-2) 0.30 0-5.0 [facility] TylerTroponin I measurement by highly sensitive enzyme vcmlydwopbk7025-61-30 20:02:00* Test Item Value Reference Range Interpretation Comments Troponin I (test code = 37520-6) < 0.001 0-0.300 [facility]-lGqe1235-72-19 20:02:00* Test Item Value Reference Range Interpretation Comments B-Type Natriuretic Peptide (test code = 74978-8) 27.2 0-100 [facility]heasterum or plasma creatine kinase measurement (enzymatic activity/volume)2019-12-27 20:02:00* Test Item Value Reference Range Interpretation Comments Creatine Kinase (test code = 2157-6) 34 29-168 [facility]asterum or plasma creatine kinase MB measurement (mass/volume)2019-12-27 20:02:00* Test Item Value Reference Range Interpretation Comments Creatine Kinase MB (test code = 44194-3) 0.30 0-5.0 [facility] TylerCT BRAIN CI7803-64-42 08:41:00 [place] [address] Patient Name: SHARLENE MOORE MR #: [id number] : 1935 Age/Sex: 84/F Req #: [id number] Adm Physician: Ordered by: LUIS CLEMENS, CRIS CLEMENS Report #: [id number] Location: [facility]/Bed: Procedure: CT/CT BRAIN WO Exam Date: 12/15/19 Exam [...] MD 3 Transcribed By: JOHN on 12/15/19843 AS400 CONSULTANT Y TO: CRIS SMITH CHEST SINGLE (PORTABLE)2019-12-15 08:20:00 [place] [address] Patient Name: SHARLENE MOORE MR #: [id number] : 1935 Age/Sex: 84/F Req #: [id number] Adm Physician: Ordered by: CRIS SMITH MD, MD Report #: [id number] Location: [facility]/Bed: Procedure: [id number] DX/CHEST SI NGLE (PORTABLE) Exam Date: 12/15/19 Exam Time: 0753 REPORT STATUS: Signed EXAM: [facility] SINGLE (PORTABLE) DATE: 12/15/2019 7:53 AM INDICATION: [...] Count (test code = 6690-2) 5.87 4.8-10.8 [facility] TylerBlood erythrocytes automated count (number/volume)2019-12-15 07:32:00* Test Item Value Reference Range Interpretation Comments Red Blood Count (test code = 789-8) 3.79 3.6-5.1 [facility] TylerBlood hemoglobin measurement (moles/volume)2019-12-15 07:32:00* Test Item Value Reference Range Interpretation Comments Hemoglobin (test code = 32185-6) 11.5 12.0-16.0 [facility] TylerAutomated blood hematocrit (volume fraction)2019-12-15 07:32:00* Test Item Value Reference Range Interpretation Comments Hematocrit (test code = 4544-3) 35.4 34.2-44.1 [facility] TylerAutomated erythrocyte mean corpuscular qimpec8372-43-11 07:32:00* Test Item Value Reference Range Interpretation Comments Mean Corpuscular Volume (test code = 787-2) 93.4 81-99 [facility] TylerAutomated erythrocyte mean corpuscular hemoglobin (mass per erythrocyte)2019-12-15 07:32:00* Test Item Value Reference Range Interpretation Comments Mean Corpuscular Hemoglobin (test code = 785-6) 30.3 28-32 [facility] TylerAutomated erythrocyte mean corpuscular hemoglobin concentration measurement (mass/volume)2019-12-15 07:32:00* Test Item Value Reference Range Interpretation Comments Mean Corpuscular Hemoglobin Concent (test code = 786-4) 32.5 31-35 [facility] TylerRDW IoeLd-Ytc1008-14-08 07:32:00* Test Item Value Reference Range Interpretation Comments Red Cell Distribution Width (test code = 55222-3) 13.5 11.7 -14.4 [facility] TylerAutomated blood platelet count (count/volume)2019-12-15 07:32:00* Test Item Value Reference Range Interpretation Comments Platelet Count (test code = 777-3) 245 140-360 [facility] TylerAutomated blood segmented neutrophil count as percentage of total mdyxwppvuu3926-77-01 07:32:00* Test Item Value Reference Range Interpretation Comments Neutrophils (%) (Auto) (test code = 45993-9) 72.2 38.7-80.0 [facility] TylerAutomated blood lymphocyte count as percentage ot total kfuzhqyfsn4683-53-43 07:32:00* Test Item Value Reference Range Interpretation Comments Lymphocytes (%) (Auto) (test code = 736-9) 15.7 18.0-39.1 [facility] TylerAutomated blood monocyte count as percentage of total wiwyaaizvf5986-35-40 07:32:00* Test Item Value Reference Range Interpretation Comments Monocytes (%) (Auto) (test code = 5905-5) 9.4 4.4-11.3 [facility] TylerAutomated blood eosinophil count as percentage of total eqstrniloa1931-87-98 07:32:00* Test Item Value Reference Range Interpretation Comments Eosinophils (%) (Auto) (test code = 713-8) 1.5 0.0-6.0 [facility] TylerAutomated blood basophil count as percentage of total odotjtpskm4584-02-66 07:32:00* Test Item Value Reference Range Interpretation Comments Basophils (%) (Auto) (test code = 706-2) 0.9 0.0-1.0 [facility] TylerFluoroscopic procedure less than one hour lrpwhcma5142-01-11 07:32:00* Test Item Value Reference Range Interpretation Comments IM GRANULOCYTES % (test code = IM GRANULOCYTES %) 0.3 0.0- 1.0 [facility] TylerAutomated blood neutrophil count 2019-12-15 07:32:00* Test Item Value Reference Range Interpretation Comments Neutrophils # (Auto) (test code = 751-8) 4.2 2.1-6.9 [facility] TylerBlood lymphocytes count (number/volume) 2019-12-15 07:32:00* Test Item Value Reference Range Interpretation Comments Lymphocytes # (Auto) (test code = 10302-0) 0.9 1.0-3.2 [facility] TylerBlood monocytes automated count (number/volume)2019-12-15 07:32:00* Test Item Value Reference Range Interpretation Comments Monocytes # (Auto) (test code = 742-7) 0.6 0.2-0.8 [facility] TylerAutomated blood eosinophil count 2019-12-15 07:32:00* Test Item Value Reference Range Interpretation Comments Eosinophils # (Auto) (test code = 711-2) 0.1 0.0-0.4 [facility] TylerAutomated blood basophil count (count/volume)2019-12-15 07:32:00* Test Item Value Reference Range Interpretation Comments Basophils # (Auto) (test code = 704-7) 0.1 0.0-0.1 [facility] TylerFluoroscopic procedure less than one hour tqmeodvj7013-12-69 07:32:00* Test Item Value Reference Range Interpretation Comments Absolute Immature Granulocyte (auto (lionel t code = Absolute Immature Granulocyte (auto) 0.02 0-0.1 [facility] TylerProthrombin time (PT) in platelet poor plasma by coagulation eyoou4608-09-21 07:32:00* Test Item Value Reference Range Interpretation Comments Prothrombin Time (test code = 5902-2) 11.8 11.9-14.5 [facility] TylerINR in Platelet poor plasma by Coagulation agamd4251-19-58 07:32:00* Test Item Value Reference Range Interpretation Comments Prothromb Time International Ratio (test code = 6301-6) 0.82 Oral Anticoagulant Therapy INR Values:1. Low Intensity Therapy 1.5 - 2.02 . Moderate Intensity Therapy 2.0 - 3.03. High Intensity Therapy(1) 2.5 - 3. 54. High Intensity Therapy(2) 3.0 - 4.05. Panic Value INR > 5.0 [facility] TylerActivated partial thromboplastin time (aPTT) in platelet poor plasma by coagulation ykjsa4545-50-69 07:32:00* Test Item Value Reference Range Interpretation Comments Activated Partial Thromboplast Time (test code = 62253-2) 29.5 23.8-35.5 [facility] TylerUrine color jvdkdjzurkusn1172-34-26 07:32:00* Test Item Value Reference Range Interpretation Comments Urine Color (test code = 5778-6) YELLOW YELLOW [facility] TylerUrine xxklugt5867-71-09 07:32:00* Test Item Value Reference Range Interpretation Comments Urine Clarity (test code = 82930-9) SL CLOUDY CLEAR [facility] of Urine by Test strip 2019-12-15 07:32:00* Test Item Value Reference Range Interpretation Comments Urine Specific [place] (test code = 5811-5) 1.025 1.010-1.02 5 [facility] TylerUrine pH measurement by automated test txgdh3682-48-94 07:32:00* Test Item Value Reference Range Interpretation Comments Urine pH (test code = 57216-3) 6.5 5-7 [facility] TylerUrine leukocyte esterase detection by uqwxovap9711-75-66 07:32:00* Test Item Value Reference Range Interpretation Comments Urine Leukocyte Esterase (test code = 5799-2) MODERATE NEGATIVE [facility] TylerUrine nitrite xzvucfiqw1128-61-26 07:32:00* Test Item Value Reference Range Interpretation Comments Urine Nitrite (test code = 37390-6) NEGATIVE NEGATIVE [facility] TylerUrine protein measurement by test strip (mass/volume)2019-12-15 07:32:00* Test Item Value Reference Range Interpretation Comments Urine Protein (test code = 5804-0) NEGATIVE NEGATIVE [facility] TylerUrine glucose yazxrupwg7360-76-17 07:32:00* Test Item Value Reference Range Interpretation Comments Urine Glucose (UA) (test code = 2349-9) NEGATIVE NEGATIVE [facility] TylerUrine ketones detection by automated test ezhwu3527-62-70 07:32:00* Test Item Value Reference Range Interpretation Comments Urine Ketones (test code = 22885-0) NEGATIVE NEGATIVE [facility] TylerUrine urobilinogen measurement by test strip (mass/volume)2019-12-15 07:32:00* Test Item Value Reference Range Interpretation Comments Urine Urobilinogen (test code = 52943-2) 0.2 0.2-1 [facility] TylerUrine total bilirubin measurement (mass/volume)2019-12-15 07:32:00* Test Item Value Reference Range Interpretation Comments Urine Bilirubin (test code = 1978-6) NEGATIVE NEGATIVE [facility] TylerUrine erythrocytes ajfqahdfi9478-17-96 07:32:00* Test Item Value Reference Range Interpretation Comments Urine Blood (test code = 79333-1) TRACE NEGATIVE [facility] TylerAutomated urine sediment leukocyte count by microscopy (number/high power field)2019-12-15 07:32:00* Test Item Value Reference Range Interpretation Comments Urine WBC (test code = 5821-4) 21-50 0-5 [facility] TylerErythrocytes detection in urine sediment by light ogvexxnlbj6951-05-71 07:32:00* Test Item Value Reference Range Interpretation Comments Urine RBC (test code = 78299-7) 0-5 0-5 [facility] TylerBacteria detection in urine sediment by light cgwynlozlj6751-11-52 07:32:00* Test Item Value Reference Range Interpretation Comments Urine Bacteria (test code = 08439-4) MODERATE NONE [facility] TylerEpithelial cells detection in urine sediment by light duhuzrfzji9111-29-44 07:32:00* Test Item Value Reference Range Interpretation Comments Urine Epithelial Cells (test code = 54246-9) FEW NONE [facility] TylerTransitional cells detection in urine sediment by light ziudhzxsem4122-05-37 07:32:00* Test Item Value Reference Range Interpretation Comments Urine Transitional Epithelial Cells (test code = 8249-5) FEW NONE [facility] or plasma sodium measurement (moles/volume)2019-12-15 07:32:00* Test Item Value Reference Range Interpretation Comments Sodium Level (test code = 2951-2) 129 136-145 [facility]asterum or plasma potassium measurement (moles/volume)2019-12-15 07:32:00* Test Item Value Reference Range Interpretation Comments Potassium Level (test code = 2823-3) 3.8 3.5-5.1 [facility]heasterum or plasma chloride measurement (moles/volume)2019-12-15 07:32:00* Test Item Value Reference Range Interpretation Comments Chloride Level (test code = 2075-0) 97 98-107 [facility]heasterum or plasma carbon dioxide, total measurement (moles/volume)2019-12-15 07:32:00* Test Item Value Reference Range Interpretation Comments Carbon Dioxide Level (test code = 2028-9) 21 22-29 [facility]asterum or plasma anion tqn8681-57-55 07:32:00* Test Item Value Reference Range Interpretation Comments Anion Gap (test code = 38241-7) 14.8 8-16 [facility]asterum or plasma urea nitrogen measurement (mass/volume)2019-12-15 07:32:00* Test Item Value Reference Range Interpretation Comments Blood Urea Nitrogen (test code = 3094-0) 16 7-26 [facility]asterum or plasma creatinine measurement (mass/volume)2019-12-15 07:32:00* Test Item Value Reference Range Interpretation Comments Creatinine (test code = 2160-0) 0.70 0.57-1.11 [facility]asterum or plasma urea nitrogen/creatinine mass kxkuj9630-92-04 07:32:00* Test Item Value Reference Range Interpretation Comments BUN/Creatinine Ratio (test code = 3097-3) 23 6-25 [facility] TylerEstimated glomerular filtration rate (GFR) azzhsvwogzree9289-98-40 07:32:00* Test Item Value Reference Range Interpretation Comments Estimat Glomerular Filtration Rate (test code = 995657712) > 60 >60 Ranges were taken from the National Kidney Disease Education Program and the [facility] literature.Reference ranges:60 or greater: Zfkcmi67-76 ( for 3 consecutive months): Chronic kidney disease 15 or less: Kidney failureUT Health North Campus TylerGlucose fknximmvhyj5902-21-01 07:32:00* Test Item Value Reference Range Interpretation Comments Glucose Level (test code = PGY7497) 119 74-118 [facility] plasma calcium measurement (mass/volume)2019-12-15 07:32:00* Test Item Value Reference Range Interpretation Comments Calcium Level (test code = 98777-0) 9.3 8.4-10.2 [facility] or plasma magnesium measurement (mass/volume)2019-12-15 07:32:00* Test Item Value Reference Range Interpretation Comments Magnesium Level (test code = 09683-7) 1.8 1.3-2.1 [facility]um or plasma total bilirubin measurement (mass/volume)2019-12-15 07:32:00* Test Item Value Reference Range Interpretation Comments Total Bilirubin (test code = 1975-2) 0.4 0.2-1.2 [facility] TylerFluoroscopic procedure less than one hour tpvpokad5627-97-96 07:32:00* Test Item Value Reference Range Interpretation Comments Aspartate Amino Transf (AST/SGOT) (test code = Aspartate Amino Transf (AST/SGOT)) 20 5-34 [facility] or plasma alanine aminotransferase measurement (enzymatic activity/volume)2019-12-15 07:32:00* Test Item Value Reference Range Interpretation Comments Alanine Aminotransferase (ALT/SGPT) (test code = 1742-6) 17 0-55 [facility]um or plasma protein measurement (mass/volume)2019-12-15 07:32:00* Test Item Value Reference Range Interpretation Comments Total Protein (test code = 2885-2) 7.1 6.5-8.1 [facility] or plasma albumin measurement (mass/volume)2019-12-15 07:32:00* Test Item Value Reference Range Interpretation Comments Albumin (test code = 1751-7) 3.8 3.5-5.0 [facility] TylerPlasma globulin measurement (mass/volume) 2019-12-15 07:32:00* Test Item Value Reference Range Interpretation Comments Globulin (test code = 71634-7) 3.3 2.3-3.5 [facility] or plasma albumin/globulin mass rfcwd8331-17-19 07:32:00* Test Item Value Reference Range Interpretation Comments Albumin/Globulin Ratio (test code = 1759-0) 1.2 0.8-2.0 [facility] or plasma alkaline phosphatase measurement (enzymatic activity/volume)2019-12-15 07:32:00* Test Item Value Reference Range Interpretation Comments Alkaline Phosphatase (test code = 6768-6) 74 40-150 [facility] TylerBNP Kwd-bMtl5702-16-08 07:32:00* Test Item Value Reference Range Interpretation Comments B-Type Natriuretic Peptide (test code = 65863-3) 77.6 0-100 [facility] or plasma creatine kinase measurement (enzymatic activity/volume)2019-12-15 07:32:00* Test Item Value Reference Range Interpretation Comments Creatine Kinase (test code = 2157-6) 37 29-168 [facility]asterum or plasma creatine kinase MB measurement (mass/volume)2019-12-15 07:32:00* Test Item Value Reference Range Interpretation Comments Creatine Kinase MB (test code = 17387-7) < 1.00 0-4.3 [facility]asterum or plasma troponin i.cardiac measurement (mass/volume)2019-12-15 07:32:00* Test Item Value Reference Range Interpretation Comments Troponin I (test code = 06512-5) < 0.05 0.0-0.40 [facility]um or plasma thyrotropin measurement by detection limit <= 0.005 miu/l (units/volume)2019-12-15 07:32:00* Test Item Value Reference Range Interpretation Comments Thyroid Stimulating Hormone (TSH) (test code = 23420-1) 3.462 0.350-4.940 [facility] TylerProthrombin time (PT) in platelet poor plasma by coagulation sdxyq8582-39-37 07:32:00* Test Item Value Reference Range Interpretation Comments Prothrombin Time (test code = 5902-2) 11.8 11.9-14.5 [facility] TylerINR in Platelet poor plasma by Coagulation zrtze3699-04-75 07:32:00* Test Item Value Reference Range Interpretation Comments Prothromb Time International Ratio (test code = 6301-6) 0.82 Oral Anticoagulant Therapy INR Values:1. Low Intensity Therapy 1.5 - 2.02 . Moderate Intensity Therapy 2.0 - 3.03. High Intensity Therapy(1) 2.5 - 3. 54. High Intensity Therapy(2) 3.0 - 4.05. Panic Value INR > 5.0 [facility] TylerActivated partial thromboplastin time (aPTT) in platelet poor plasma by coagulation zofsp5926-78-74 07:32:00* Test Item Value Reference Range Interpretation Comments Activated Partial Thromboplast Time (test code = 58236-4) 29.5 23.8-35.5 [facility] TylerTransitional cells detection in urine sediment by light slklsthemn6354-89-52 07:32:00* Test Item Value Reference Range Interpretation Comments Urine Transitional Epithelial Cells (test code = 8249-5) FEW NONE [facility] or plasma magnesium measurement (mass/volume)2019-12-15 07:32:00* Test Item Value Reference Range Interpretation Comments Magnesium Level (test code = 64314-4) 1.8 1.3-2.1 [facility] or plasma thyrotropin measurement by detection limit <= 0.005 miu/l (units/volume)2019-12-15 07:32:00* Test Item Value Reference Range Interpretation Comments Thyroid Stimulating Hormone (TSH) (test code = 82429-9) 3.462 0.350-4.940 [facility] TylerProthrombin time (PT) in platelet poor plasma by coagulation ekndx3716-26-80 07:32:00* Test Item Value Reference Range Interpretation Comments Prothrombin Time (test code = 5902-2) 11.8 11.9-14.5 [facility] TylerINR in Platelet poor plasma by Coagulation wlpfs3710-46-33 07:32:00* Test Item Value Reference Range Interpretation Comments Prothromb Time International Ratio (test code = 6301-6) 0.82 Oral Anticoagulant Therapy INR Values:1. Low Intensity Therapy 1.5 - 2.02 . Moderate Intensity Therapy 2.0 - 3.03. High Intensity Therapy(1) 2.5 - 3. 54. High Intensity Therapy(2) 3.0 - 4.05. Panic Value INR > 5.0 [facility] TylerActivated partial thromboplastin time (aPTT) in platelet poor plasma by coagulation qfais9923-46-65 07:32:00* Test Item Value Reference Range Interpretation Comments Activated Partial Thromboplast Time (test code = 17716-5) 29.5 23.8-35.5 [facility] or plasma magnesium measurement (mass/volume)2019-12-15 07:32:00* Test Item Value Reference Range Interpretation Comments Magnesium Level (test code = 08032-9) 1.8 1.3-2.1 [facility]asterum or plasma thyrotropin measurement by detection limit <= 0.005 miu/l (units/volume)2019-12-15 07:32:00* Test Item Value Reference Range Interpretation Comments Thyroid Stimulating Hormone (TSH) (test code = 85724-2) 3.462 0.350-4.940 [facility] TylerCapillary blood glucose measurement by glucometer (mass/volume)2019-11-24 11:43:00* Test Item Value Reference Range Interpretation Comments Bedside Glucose (test code = 14174-5) 94 70-120 Meter ID: [id number] [facility] CampusCapillary blood glucose measurement by glucometer (mass/volume)2019-11-24 11:43:00* Test Item Value Reference Range Interpretation Comments Bedside Glucose (test code = 85652-1) 94 70-120 Meter ID: [id number] [facility] TylerFluoroscopic procedure less than one hour qfieopua2644-72-62 09:32:00* Test Item Value Reference Range Interpretation [...] complexity tests.Testing performed by [facility] [address] [place], [place] [phone] Director: Carlos Man M.D.CLIA # [id number] [facility] Fluoroscopic procedure less than one hour aeppcfzt7743-34-51 09:32:00* Test Item Value Reference Range Interpretation [...] complexity tests.Testing performed by [facility] [address] [place], [place] [phone] Director: GAYATRI Sifuentes # [id number] [facility] ABDOMEN-1VIEW (KUB)2019-10-31 18:34:00 [place] [address] Patient Name: SHARLENE MOORE MR #: [id number] : 1935 Age/Sex: 84/F Req #: [id number] Adm Physician: Ordered by: ZAINAB PATTERSON [employer]ISHER [employer]PRENTICE Report #: [id number] Location: ER Room/Bed: Procedure: [id number] DX /ABDOMEN-1VIEW (KUB) Exam Date: 10/31/19 Exam Time: 1800 REPORT STATUS: Signed EXAM: Abdomen 1 View INDICATION: abd fullness [id number] 1800 COMPAR JC: Abdominal x-ray dated September 30, [...] JOHN on 10/31/191834 COPY TO: ZAINAB PATTERSON [employer] FINISHER APPRENTICE Serum or plasma amylase measurement (enzymatic activity/volume)2019-10-31 17:00:00* Test Item Value Reference Range Interpretation Comments Amylase Level (test code = 1798-8) 37 25-125 [facility] or plasma lipase measurement (enzymatic activity/volume)2019-10-31 17:00:00* Test Item Value Reference Range Interpretation Comments Lipase (test code = 3040-3) 6 78 [facility] or plasma amylase measurement (enzymatic activity/volume)2019-10-31 17:00:00* Test Item Value Reference Range Interpretation Comments Amylase Level (test code = 1798-8) 37 25-125 [facility] or plasma lipase measurement (enzymatic activity/volume)2019-10-31 17:00:00* Test Item Value Reference Range Interpretation Comments Lipase (test code = 3040-3) 6 [facility] TylerBedside Srcbssi1600-43-83 14:39:00* Test Item Value Reference Range Interpretation Comments Bedside Glucose (test code = 24143-8) 140 70-120 H Meter ID: [id number] [facility] TylerABDOMEN 2 VIEW 2019-09-30 08:03:00 [place] [address] Patient Name: SHARLENE MOORE MR #: [id number] : 1935 Age/Sex: 84/F Req #: [id number] Adm Physician: HAYLEY PETERSEN MD Ordered by: CAREY LOFTON MD Report #: [id number] Location: MED/SURG Room/Bed: [facility] Procedure: 0324-00 01 DX/ABDOMEN 2 VIEW Exam [...] 09/30/19807 COPY TO: CAREY LOFTON MD Sodium Mdfga4735-62-56 05:40:00* Test Item Value Reference Range Interpretation Comments Sodium Level (test code = 2951-2) 138 136-145 [facility] TylerPotassium Xqsze4768-06-45 05:40:00* Test Item Value Reference Range Interpretation Comments Potassium Level (test code = 2823-3) 3.6 3.5-5.1 [facility] TylerChloride Zqvvg3922-64-92 05:40:00* Test Item Value Reference Range Interpretation Comments Chloride Level (test code = 2075-0) 109 98-107 H [facility] TylerCarbon Dioxide Zdccg3965-37-07 05:40:00* Test Item Value Reference Range Interpretation Comments Carbon Dioxide Level (test code = 2028-9) 19 22-29 L [facility] TylerAnion Plw8433-59-48 05:40:00* Test Item Value Reference Range Interpretation Comments Anion Gap (test code = 34061-5) 13.6 8-16 [facility] TylerBlood Urea Tzexlhhv1544-14-47 05:40:00* Test Item Value Reference Range Interpretation Comments Blood Urea Nitrogen (test code = 3094-0) 12 7-26 [facility] TylerCreatinine2020-03-24 05:40:00* Test Item Value Reference Range Interpretation Comments Creatinine (test code = 2160-0) 0.66 0.57-1.11 [facility] TylerBUN/Creatinine Evmwx9465-15-04 05:40:00* Test Item Value Reference Range Interpretation Comments BUN/Creatinine Ratio (test code = 3097-3) 18 6-25 [facility] TylerEstimat Glomerular Filtration Rate 2019-09-30 05:40:00* Test Item Value Reference Range Interpretation Comments Estimat Glomerular Filtration Rate (test code = 341409810) > 60 >60 Ranges were taken from the National Kidney Disease Education Program and the [facility] Foundation literature.Reference ranges:60 or greater: Lmigdc63-29 ( for 3 consecutive months): Chronic kidney disease 15 or less: Kidney failureUT Health North Campus TylerGlucose Xvila7657-81-60 05:40:00* Test Item Value Reference Range Interpretation Comments Glucose Level (test code = COL3033) 66 74-118 L [facility] TylerCalcium Nkouc9500-97-04 05:40:00* Test Item Value Reference Range Interpretation Comments Calcium Level (test code = 40753-2) 8.1 8.4-10.2 L [facility] TylerWhite Blood Qiqsc2140-64-69 05:21:00* Test Item Value Reference Range Interpretation Comments White Blood Count (test code = 6690-2) 6.54 4.8-10.8 [facility] TylerRed Blood Pnqqr5975-91-61 05:21:00* Test Item Value Reference Range Interpretation Comments Red Blood Count (test code = 789-8) 3.65 3.6-5.1 [facility] TylerHemoglobin2020-03-24 05:21:00* Test Item Value Reference Range Interpretation Comments Hemoglobin (test code = 15339-4) 11.3 12.0-16.0 L [facility] TylerHematocrit2020-03-24 05:21:00* Test Item Value Reference Range Interpretation Comments Hematocrit (test code = 4544-3) 34.3 34.2-44.1 [facility] TylerMean Corpuscular Qffggk1395-02-35 05:21:00* Test Item Value Reference Range Interpretation Comments Mean Corpuscular Volume (test code = 787-2) 94.0 81-99 [facility] TylerMean Corpuscular Zmikvkyght9775-94-34 05:21:00* Test Item Value Reference Range Interpretation Comments Mean Corpuscular Hemoglobin (test code = 785-6) 31.0 28-32 [facility] TylerMean Corpuscular Hemoglobin Concent 2019-09-30 05:21:00* Test Item Value Reference Range Interpretation Comments Mean Corpuscular Hemoglobin Concent (test code = 786-4) 32.9 31-35 [facility] TylerRed Cell Distribution Zahdj2841-68-56 05:21:00* Test Item Value Reference Range Interpretation Comments Red Cell Distribution Width (test code = 41140-6) 13.4 11.7 -14.4 [facility] TylerPlatelet Dpmir5353-56-34 05:21:00* Test Item Value Reference Range Interpretation Comments Platelet Count (test code = 777-3) 234 140-360 [facility] TylerNeutrophils (%) (Auto)2019-09-30 05:21:00 * Test Item Value Reference Range Interpretation Comments Neutrophils (%) (Auto) (test code = 31655-7) 67.3 38.7-80.0 [facility] TylerLymphocytes (%) (Auto)2019-09-30 05:21:00 * Test Item Value Reference Range Interpretation Comments Lymphocytes (%) (Auto) (test code = 736-9) 19.4 18.0-39.1 [facility] TylerMonocytes (%) (Auto)2019-09-30 05:21:00* Test Item Value Reference Range Interpretation Comments Monocytes (%) (Auto) (test code = 5905-5) 10.2 4.4-11.3 [facility] TylerEosinophils (%) (Auto)2019-09-30 05:21:00 * Test Item Value Reference Range Interpretation Comments Eosinophils (%) (Auto) (test code = 713-8) 2.0 0.0-6.0 [facility] TylerBasophils (%) (Auto)2019-09-30 05:21:00* Test Item Value Reference Range Interpretation Comments Basophils (%) (Auto) (test code = 706-2) 0.6 0.0-1.0 [facility] TylerIM GRANULOCYTES %2019-09-30 05:21:00* Test Item Value Reference Range Interpretation Comments IM GRANULOCYTES % (test code = IM GRANULOCYTES %) 0.5 0.0- 1.0 [facility] TylerNeutrophils # (Auto)2019-09-30 05:21:00* Test Item Value Reference Range Interpretation Comments Neutrophils # (Auto) (test code = 751-8) 4.4 2.1-6.9 [facility] TylerLymphocytes # (Auto)2019-09-30 05:21:00* Test Item Value Reference Range Interpretation Comments Lymphocytes # (Auto) (test code = 60512-1) 1.3 1.0-3.2 [facility] TylerMonocytes # (Auto)2019-09-30 05:21:00* Test Item Value Reference Range Interpretation Comments Monocytes # (Auto) (test code = 742-7) 0.7 0.2-0.8 [facility] TylerEosinophils # (Auto)2019-09-30 05:21:00* Test Item Value Reference Range Interpretation Comments Eosinophils # (Auto) (test code = 711-2) 0.1 0.0-0.4 [facility] TylerBasophils # (Auto)2019-09-30 05:21:00* Test Item Value Reference Range Interpretation Comments Basophils # (Auto) (test code = 704-7) 0.0 0.0-0.1 [facility] TylerAbsolute Immature Granulocyte (auto 2019-09-30 05:21:00* Test Item Value Reference Range Interpretation Comments Absolute Immature Granulocyte (auto (lionel t code = Absolute Immature Granulocyte (auto) 0.03 0-0.1 [facility] TylerCreatine Kinase FP2344-56-85 06:37:00* Test Item Value Reference Range Interpretation Comments Creatine Kinase MB (test code = 32836-0) 2.00 0-5.0 [facility] TylerTroponin I1479-63-01 06:37:00* Test Item Value Reference Range Interpretation Comments Troponin I (test code = MKS9246) 0.001 0-0.300 [facility] TylerCreatine Moxubl2808-08-50 06:30:00* Test Item Value Reference Range Interpretation Comments Creatine Kinase (test code = 2157-6) 69 29-168 [facility] TylerTotal Tednpqftf4243-03-32 06:22:00* Test Item Value Reference Range Interpretation Comments Total Bilirubin (test code = 1975-2) 0.5 0.2-1.2 [facility] TylerAspartate Amino Transf (AST/SGOT) 2019-09-29 06:22:00* Test Item Value Reference Range Interpretation Comments Aspartate Amino Transf (AST/SGOT) (test code = Aspartate Amino Transf (AST/SGOT)) 22 5-34 [facility] TylerAlanine Aminotransferase (ALT/SGPT) 2019-09-29 06:22:00* Test Item Value Reference Range Interpretation Comments Alanine Aminotransferase (ALT/SGPT) (test code = 1742-6) 19 0-55 [facility] TylerTotal Tdgasrn1504-13-23 06:22:00* Test Item Value Reference Range Interpretation Comments Total Protein (test code = 2885-2) 7.1 6.5-8.1 [facility] TylerAlbumin2020-03-23 06:22:00* Test Item Value Reference Range Interpretation Comments Albumin (test code = 1751-7) 3.8 3.5-5.0 [facility] TylerGlobulin2020-03-23 06:22:00* Test Item Value Reference Range Interpretation Comments Globulin (test code = 83253-2) 3.3 2.3-3.5 [facility] TylerAlbumin/Globulin Fpcvj5510-28-90 06:22:00 * Test Item Value Reference Range Interpretation Comments Albumin/Globulin Ratio (test code = 1759-0) 1.2 0.8-2.0 [facility] TylerAlkaline Ielrndgkbsm5317-28-78 06:22:00* Test Item Value Reference Range Interpretation Comments Alkaline Phosphatase (test code = 6768-6) 61 40-150 [facility] TylerABDOMEN 2 LTNT1883-74-70 05:44:00 [facility] [address] [place] [address] Patient Name: SHARLENE MOORE MR #: [id number] : 1935 Age/Sex: 84/F Req #: [id number] Adm Physician: HAYLEY PETERSEN MD Ordered by: CAREY LOFTON MD Report #: [id number] Location: MED/SURG Room/Bed: [facility] Procedure: 0323-00 04 DX/ABDOMEN 2 VIEW Exam Date: 09/29/19 Exam Time: 0530 REPORT STATUS: Signed EXAM: ABDOMEN 2 VIEW, DATE: 09/29/2019 INDICATION: Small bowel obstruction. COMPARISON: 09/28/2019. FINDINGS: LINES/TUBES: NG/orogastric tube with d istal tip projected on the gastric body, however, sidehole at the level of the GE junction; recommend advancing 2 to 3 cm. 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 SOFT TISSUES: No abnormal calcifications. No mass effect. LUNG BASES: Clear. BONES: No acute findings. IMPRESSION: Findings s uggesting resolving small bowel dilatation. Signed by: Dr. Bettina Adam M.D. on 09/29/2019 5:50 AM Dictated By: YAMIL Baez MD 0565 Transcrib ed By: JOHN on 09/29/19 0527 COPY TO: CAREY LOFTON MD ABDOMEN-1VIEW (KUB)2019-09-28 10:12:00 [place] [id number] Patient Name: SHARLENE MOORE MR #: [id number] : 1935 Age/Sex: 84/F Req #: [id number] Adm Physician: JAZZ CORDOVA MD Ordered by: EMILY ABDULLAHI MD Report #: [id number] Location: MED/SURG Room/Bed: [facility] Procedure: [id number] DX/ ABDOMEN-1VIEW (KUB) Exam Date: 09/28/19 Exam [...] COPY TO: EMILY ABDULLAHI MD CHEST 2 MINBZ3974-23-06 07:03:[address] [address] Patient Name: SHARLENE MOORE MR #: [id number] : 1935 Age/Sex: 84/F Req #: [id number] Adm Physician: Ordered by: ZAINAB CHUNG DO Report #: [id number] Location: ER Room/Bed: Procedure: [id number] DX/CH EST 2 VIEWS Exam Date: 09/28/19 [...] CHUNG DO CT ABDOMEN/PELVIS W 2019-09-28 06:48:00 [place] [address] Patient Name: SHARLENE MOORE MR #: [id number] : 1935 Age/Sex: 84/F Req #: [id number] Adm Physician: Ordered by: ZAINAB CHUNG DO Report #: [id number] Location: ER Room/Bed: Procedure: [id number] CT/CT ABDOMEN/PELVIS W Exam Date: 09/28/19 Exam [...] 09/28/19700 COPY TO: ZAINAB CHUNG DO Urine Guknz9287-80-41 06:39:00* Test Item Value Reference Range Interpretation Comments Urine Color (test code = 5778-6) YELLOW YELLOW [facility] TylerUrine Xluifpb9401-79-91 06:39:00* Test Item Value Reference Range Interpretation Comments Urine Clarity (test code = 18023-0) CLEAR CLEAR [facility] TylerUrine Specific Pusrpui0027-88-25 06:39:00 * Test Item Value Reference Range Interpretation Comments Urine Specific [place] (test code = 5811-5) >=1.030 1.010-1.02 5 [facility] TylerUrine hA7831-67-37 06:39:00* Test Item Value Reference Range Interpretation Comments Urine pH (test code = 58714-8) 5.5 5-7 [facility] TylerUrine Leukocyte Fuqfzmkt3759-56-68 06:39:00* Test Item Value Reference Range Interpretation Comments Urine Leukocyte Esterase (test code = 5799-2) SMALL NEGATIVE [facility] TylerUrine Gwyindt3762-08-58 06:39:00* Test Item Value Reference Range Interpretation Comments Urine Nitrite (test code = 14139-8) NEGATIVE NEGATIVE [facility] TylerUrine Uktupfo6495-15-77 06:39:00* Test Item Value Reference Range Interpretation Comments Urine Protein (test code = 5804-0) 1+ NEGATIVE H [facility] TylerUrine Glucose (UA)2019-09-28 06:39:00* Test Item Value Reference Range Interpretation Comments Urine Glucose (UA) (test code = 2349-9) NEGATIVE NEGATIVE [facility] TylerUrine Fhjqqye7931-30-46 06:39:00* Test Item Value Reference Range Interpretation Comments Urine Ketones (test code = 10270-9) 1+ NEGATIVE H [facility] TylerUrine Zltuonguhsjs1335-68-45 06:39:00* Test Item Value Reference Range Interpretation Comments Urine Urobilinogen (test code = 76148-0) 0.2 0.2-1 [facility] TylerUrine Dhkxeftom3912-41-40 06:39:00* Test Item Value Reference Range Interpretation Comments Urine Bilirubin (test code = 1978-6) SMALL NEGATIVE [facility] TylerUrine Wddyc2189-71-02 06:39:00* Test Item Value Reference Range Interpretation Comments Urine Blood (test code = 64233-5) TRACE NEGATIVE H [facility] TylerUrine NYU2649-68-75 06:39:00* Test Item Value Reference Range Interpretation Comments Urine WBC (test code = 5821-4) 6-10 0-5 H [facility] TylerUrine WJT0987-43-90 06:39:00* Test Item Value Reference Range Interpretation Comments Urine RBC (test code = 70105-4) 6-10 0-5 H [facility] TylerUrine Rehymsfs5222-57-02 06:39:00* Test Item Value Reference Range Interpretation Comments Urine Bacteria (test code = 03606-0) RARE NONE [facility] TylerUrine Epithelial Ysjjf3001-36-11 06:39:00 * Test Item Value Reference Range Interpretation Comments Urine Epithelial Cells (test code = 60874-6) FEW NONE [facility] TylerLipase2020-03-22 05:57:00* Test Item Value Reference Range Interpretation Comments Lipase (test code = 3040-3) 7 8-78 L [facility] TylerCT ABDOMEN/PELVIS H5516-37-83 16:36:00 [facility] [address] [place] [address] Patient Name: SHARLENE MOORE MR #: [id number] : 3 Age/Sex: 84/F Req #: [id number] Adm Physician: Ordered by: FLORENCE HOOPER MD Report #: [id number] Location: ER Room/Bed: Procedure: [id number] CT/CT ABDOMEN/PELVIS W Exam Date: 04/28/19 Exam [...] 4:54 PM Dictated By: COY CHURCHILL MD 1075 Transcribed By: JOHN on 04/28/191653 COPY TO: FLORENCE HOOPER MD Urine GVS2247-57-21 15:20:00* Test Item Value Reference Range Interpretation Comments Urine WBC (test code = 5821-4) 0-5 0-5 [facility] TylerUrine JVS5108-22-61 15:20:00* Test Item Value Reference Range Interpretation Comments Urine RBC (test code = 60958-7) NONE 0-5 [facility] TylerUrine Yqvrmhbw0928-14-59 15:20:00* Test Item Value Reference Range Interpretation Comments Urine Bacteria (test code = 08545-4) NONE NONE [facility] TylerUrine Epithelial Vvgic2701-96-84 15:20:00 * Test Item Value Reference Range Interpretation Comments Urine Epithelial Cells (test code = 82020-3) FEW NONE [facility] [facility] Fwdkm7486-00-74 15:10:00* Test Item Value Reference Range Interpretation Comments Urine Color (test code = 5778-6) YELLOW [facility]LLOW [facility] Omhwllj1655-50-23 15:10:00* Test Item Value Reference Range Interpretation Comments Urine Clarity (test code = 66679-1) CLEAR CLEAR [facility] TylerUrine Specific Whtlmxr6338-04-57 15:10:00 * Test Item Value Reference Range Interpretation Comments Urine Specific [place] (test code = 5811-5) 1.010 1.010-1.02 5 [facility] TylerUrine hD6080-62-45 15:10:00* Test Item Value Reference Range Interpretation Comments Urine pH (test code = 51636-4) 6 5-7 [facility] Leukocyte Exurkpte0119-18-89 15:10:00* Test Item Value Reference Range Interpretation Comments Urine Leukocyte Esterase (test code = 45379-9) SMALL NEGATIV E [facility] TylerU[facility] Aycsnyh8526-48-58 15:10:00* Test Item Value Reference Range Interpretation Comments Urine Nitrite (test code = 48038-1) NEGATIVE NEGATIVE [facility] Tyler[facility] Yekryfl6401-81-19 15:10:00* Test Item Value Reference Range Interpretation Comments Urine Protein (test code = 08092-5) NEGATIVE NEGATIVE [facility] TylerUrine Glucose (UA)2019-04-28 15:10:00* Test Item Value Reference Range Interpretation Comments Urine Glucose (UA) (test code = 79786-2) NEGATIVE NEGATIVE [facility] TylerUrine Ohzldsa4342-38-61 15:10:00* Test Item Value Reference Range Interpretation Comments Urine Ketones (test code = 54461-0) 1+ NEGATIVE H [facility] TylerUrine Drwqohqurjtg8327-73-78 15:10:00* Test Item Value Reference Range Interpretation Comments Urine Urobilinogen (test code = 87216-6) 0.2 0.2-1 [facility] TylerUrine Zazsfzmjg4004-24-57 15:10:00* Test Item Value Reference Range Interpretation Comments Urine Bilirubin (test code = 1977-8) NEGATIVE NEGATIVE [facility] Tyler[facility]rine Dihtq7923-03-76 15:10:00* Test Item Value Reference Range Interpretation Comments Urine Blood (test code = 98966-3) TRACE NEGATIVE H [facility] Kklru7144-76-35 15:09:00* Test Item Value Reference Range Interpretation Comments Sodium Level (test code = 2951-2) 134 136-145 L [facility] TylerPotassium Xdsiq8037-68-29 15:09:00* Test Item Value Reference Range Interpretation Comments Potassium Level (test code = 2823-3) 5.0 3.5-5.1 [facility] TylerChloride Certh3490-30-48 15:09:00* Test Item Value Reference Range Interpretation Comments Chloride Level (test code = 2075-0) 100 98-107 [facility] TylerCarbon Dioxide Emerb6036-23-00 15:09:00* Test Item Value Reference Range Interpretation Comments Carbon Dioxide Level (test code = 2028-9) 20 22-29 L [facility] TylerAnion Cpd1488-25-52 15:09:00* Test Item Value Reference Range Interpretation Comments Anion Gap (test code = 79789-5) 19.0 8-16 H [facility] TylerBlood Urea Rxwfyoon4895-08-36 15:09:00* Test Item Value Reference Range Interpretation Comments Blood Urea Nitrogen (test code = 3094-0) 14 01-31 [facility] TylerCreatinine2019-10-21 15:09:00* Test Item Value Reference Range Interpretation Comments Creatinine (test code = 2160-0) 0.82 0.57-1.11 [facility] TylerBUN/Creatinine Xzygm7741-06-78 15:09:00* Test Item Value Reference Range Interpretation Comments BUN/Creatinine Ratio (test code = 3097-3) 17 12-31 [facility] TylerEstimat Glomerular Filtration Rate 2019-04-28 15:09:00* Test Item Value Reference Range Interpretation Comments Estimat Glomerular Filtration Rate (test code = 591900699) > 60 >60 Ranges were taken from the National Kidney Disease Education Program and the [facility] literature.Reference ranges:60 or greater: Hzitrf32-22 ( for 3 consecutive months): Chronic kidney disease 15 or less: Kidney failureUT [facility] TylerGlucose Zpmix3729-01-65 15:09:00* Test Item Value Reference Range Interpretation Comments Glucose Level (test code = QAY8130) 104 74-118 [facility] TylerCalcium Jdmjn3081-16-64 15:09:00* Test Item Value Reference Range Interpretation Comments Calcium Level (test code = 79131-5) 9.9 8.4-10.2 [facility] TylerWhite Blood Bvhhz7654-74-29 14:49:00* Test Item Value Reference Range Interpretation Comments White Blood Count (test code = 6690-2) 7.98 4.8-10.8 [facility] TylerRed Blood Czcff2736-13-47 14:49:00* Test Item Value Reference Range Interpretation Comments Red Blood Count (test code = 789-8) 4.25 3.6-5.1 [facility] TylerHemoglobin2019-10-21 14:49:00* Test Item Value Reference Range Interpretation Comments Hemoglobin (test code = 62481-3) 13.1 12.0-16.0 [facility] TylerHematocrit2019-10-21 14:49:00* Test Item Value Reference Range Interpretation Comments Hematocrit (test code = 4544-3) 39.2 34.2-44.1 [facility] TylerMean Corpuscular Pzfvhh6064-84-71 14:49:00* Test Item Value Reference Range Interpretation Comments Mean Corpuscular Volume (test code = 787-2) 92.2 81-99 [facility] TylerMean Corpuscular Szwgpsrgby7354-87-68 14:49:00* Test Item Value Reference Range Interpretation Comments Mean Corpuscular Hemoglobin (test code = 785-6) 30.8 28-32 [facility] TylerMean Corpuscular Hemoglobin Concent 2019-04-28 14:49:00* Test Item Value Reference Range Interpretation Comments Mean Corpuscular Hemoglobin Concent (test code = 786-4) 33.4 31-35 [facility] TylerRed Cell Distribution Psozz7797-06-28 14:49:00* Test Item Value Reference Range Interpretation Comments Red Cell Distribution Width (test code = 23246-2) 12.5 11.7 -14.4 [facility] TylerPlatelet Krhcj6751-84-38 14:49:00* Test Item Value Reference Range Interpretation Comments Platelet Count (test code = 777-3) 266 140-360 [facility] TylerNeutrophils (%) (Auto)2019-04-28 14:49:00 * Test Item Value Reference Range Interpretation Comments Neutrophils (%) (Auto) (test code = 88677-6) 82.7 38.7-80.0 H [facility] TylerLymphocytes (%) (Auto)2019-04-28 14:49:00 * Test Item Value Reference Range Interpretation Comments Lymphocytes (%) (Auto) (test code = 736-9) 10.5 18.0-39.1 L [facility] TylerMonocytes (%) (Auto)2019-04-28 14:49:00* Test Item Value Reference Range Interpretation Comments Monocytes (%) (Auto) (test code = 5905-5) 5.4 4.4-11.3 [facility] TylerEosinophils (%) (Auto)2019-04-28 14:49:00 * Test Item Value Reference Range Interpretation Comments Eosinophils (%) (Auto) (test code = 713-8) 0.5 0.0-6.0 [facility] TylerBasophils (%) (Auto)2019-04-28 14:49:00* Test Item Value Reference Range Interpretation Comments Basophils (%) (Auto) (test code = 706-2) 0.5 0.0-1.0 [facility] TylerIM GRANULOCYTES %2019-04-28 14:49:00* Test Item Value Reference Range Interpretation Comments IM GRANULOCYTES % (test code = IM GRANULOCYTES %) 0.4 0.0- 1.0 [facility] TylerNeutrophils # (Auto)2019-04-28 14:49:00* Test Item Value Reference Range Interpretation Comments Neutrophils # (Auto) (test code = 751-8) 6.6 2.1-6.9 [facility] TylerLymphocytes # (Auto)2019-04-28 14:49:00* Test Item Value Reference Range Interpretation Comments Lymphocytes # (Auto) (test code = 62930-9) 0.8 1.0-3.2 L [facility] TylerMonocytes # (Auto)2019-04-28 14:49:00* Test Item Value Reference Range Interpretation Comments Monocytes # (Auto) (test code = 742-7) 0.4 0.2-0.8 [facility] TylerEosinophils # (Auto)2019-04-28 14:49:00* Test Item Value Reference Range Interpretation Comments Eosinophils # (Auto) (test code = 711-2) 0.0 0.0-0.4 [facility] TylerBasophils # (Auto)2019-04-28 14:49:00* Test Item Value Reference Range Interpretation Comments Basophils # (Auto) (test code = 704-7) 0.0 0.0-0.1 [facility] TylerAbsolute Immature Granulocyte (auto 2019-04-28 14:49:00* Test Item Value Reference Range Interpretation Comments Absolute Immature Granulocyte (auto (lionel t code = Absolute Immature Granulocyte (auto) 0.03 0-0.1 [facility] SZOYMLXG7964-11-24 22:55:00* Test Item Value Reference Range Interpretation [...] A Urine Source? Clean CatchKNEE THREE VIEWS BFTXDUYZM1187-58-36 14:30:00 [facility] [address] [address] Patient Name: SHARLENE MOORE MR #: [id number] : 1935 Age/Sex: 84/F Req #: [id number] Adm Physician: Ordered by: FAVIOLA BAEZ Report #: [id number] Location: [facility] Room/Bed: Procedure: DX/KN EE THREE VIEWS BILATERAL Exam Date: [...] SP LUMBAR AP LATERAL 2-3VWS 2019-03-21 14:26:00 [place] [address] Patient Name: SHARLENE MOORE MR #: [id number] : 1935 Age/Sex: 84/F Req #: [id number] [facility] Physician: Ordered by: FAVIOLA BAEZ Report #: [id number] Location: [facility] Room/Bed: Procedure: [id number] DX/SP LUMBAR AP LATERAL 2-3VWS Exam Date: [...] TO: FAVIOLA RODRIGUEZ (NON STAFF) CERVICAL 3 WAOOY9477-12-82 14:23:00 [address] [address] Patient Name: SHARLENE MOORE MR #: [id number] : 1935 Age/Sex: 84/F Req #: [id number] [facility] Physician: Ordered by: FAVIOLA BAEZ Report #: [id number] Location: [facility] Room/Bed: Procedure: [id number] DX/CE RVICAL 3 VIEWS Exam Date: 03/21/19 [...] BAEZ (NON STAFF) CHEST SINGLE (PORTABLE)2019-02-10 20:14:[address] [address] Patient Name: SHARLENE MOORE MR #: [id number] : 1935 Age/Sex: 84/F Req #: [id number] Adm Physician: Ordered by: EMILY ABDULLAHI MD Report #: [id number] Location: ER Room/Bed: Procedure: [id number] DX/C HEST SINGLE (PORTABLE) Exam Date: 02/10/19 [...] No acute bony abnormalities. Signed by: Dr. Albret lake M.D. on 02/10/2019 8:14 PM Dictated By: ALBERT EVERETT MD Electronic ally Signed By: ALBERT EVERETT MD on 02/10/192013 Transcribed By: JOHN on 02/10/192013 COPY TO: EMILY ABDULLAHI MD Creatine Kinase MB 2019-02-10 19:20:00* Test Item Value Reference Range Interpretation Comments Creatine Kinase MB (test code = 43700-4) 0.60 0-5.0 [place] 51203019-08-05 19:20:00* Test Item Value Reference Range Interpretation Comments Troponin I (test code = JCZ5389) < 0.001 0-0.300 [facility] TylerThyroid Stimulating Hormone (TSH) 2019-02-10 19:20:00* Test Item Value Reference Range Interpretation Comments Thyroid Stimulating Hormone (TSH) (test code = 56881-3) 1.311 0.350-4.940 [facility] TylerCreatine Kinase ZL4134-32-80 19:20:00* Test Item Value Reference Range Interpretation Comments Creatine Kinase MB (test code = 56081-2) 0.60 0-5.0 [place] 51203019-08-05 19:20:00* Test Item Value Reference Range Interpretation Comments Troponin I (test code = TOX0153) < 0.001 0-0.300 [facility] TylerThyroid Stimulating Hormone (TSH) 2019-02-10 19:20:00* Test Item Value Reference Range Interpretation Comments Thyroid Stimulating Hormone (TSH) (test code = 77371-8) 1.311 0.350-4.940 [facility] TylerThyroid Stimulating Hormone (TSH) 2019-02-10 19:20:00* Test Item Value Reference Range Interpretation Comments Thyroid Stimulating Hormone (TSH) (test code = 98476-4) 1.311 0.350-4.940 [facility] Tzolf7561-84-66 18:57:00* Test Item Value Reference Range Interpretation Comments Sodium Level (test code = 2951-2) 137 136-145 [facility] TylerPotassium Nordc6483-64-36 18:57:00* Test Item Value Reference Range Interpretation Comments Potassium Level (test code = 2823-3) 4.1 3.5-5.1 [facility] TylerChloride Kwbup6481-24-61 18:57:00* Test Item Value Reference Range Interpretation Comments Chloride Level (test code = 2075-0) 102 98-107 [facility] TylerCarbon Dioxide Zgyor3025-26-03 18:57:00* Test Item Value Reference Range Interpretation Comments Carbon Dioxide Level (test code = 2028-9) 24 22-29 [facility] TylerAnion Gxz3570-61-94 18:57:00* Test Item Value Reference Range Interpretation Comments Anion Gap (test code = 32446-8) 15.1 8-16 [facility] TylerBlood Urea Pzucnhux2197-28-71 18:57:00* Test Item Value Reference Range Interpretation Comments Blood Urea Nitrogen (test code = 3094-0) 11 7- [facility] TylerCreatinine2019-08-05 18:57:00* Test Item Value Reference Range Interpretation Comments Creatinine (test code = 2160-0) 0.75 0.57-1.11 [facility] TylerBUN/Creatinine Kerie2094-68-75 18:57:00* Test Item Value Reference Range Interpretation Comments BUN/Creatinine Ratio (test code = 3097-3) 15 6- [facility] TylerEstimat Glomerular Filtration Rate 2019-02-10 18:57:00* Test Item Value Reference Range Interpretation Comments Estimat Glomerular Filtration Rate (test code = 303208925) > 60 >60 Ranges were taken from the National Kidney Disease Education Program and the [facility] Foundation literature.Reference ranges:60 or greater: Mwtzyg12-60 ( for 3 consecutive months): Chronic kidney disease 15 or less: Kidney failureUT Health North Campus TylerGlucose Ybtqh7250-57-32 18:57:00* Test Item Value Reference Range Interpretation Comments Glucose Level (test code = AQS9421) 103 74-118 [facility] TylerCalcium Geoow4819-80-68 18:57:00* Test Item Value Reference Range Interpretation Comments Calcium Level (test code = 95501-9) 9.1 8.4-10.2 [facility] TylerTotal Hbuiiroez0281-86-07 18:57:00* Test Item Value Reference Range Interpretation Comments Total Bilirubin (test code = 1974-2) 0.2 0.2-1.2 [facility] TylerAspartate Amino Transf (AST/SGOT) 2019-02-10 18:57:00* Test Item Value Reference Range Interpretation Comments Aspartate Amino Transf (AST/SGOT) (test code = Aspartate Amino Transf (AST/SGOT)) 19 5-34 [facility] TylerAlanine Aminotransferase (ALT/SGPT) 2019-02-10 18:57:00* Test Item Value Reference Range Interpretation Comments Alanine Aminotransferase (ALT/SGPT) (test code = 1742-6) 12 0-55 [facility] TylerTotal Ybfqspa9146-51-60 18:57:00* Test Item Value Reference Range Interpretation Comments Total Protein (test code = 2885-2) 6.9 6.5-8.1 [facility] TylerAlbumin2019-08-05 18:57:00* Test Item Value Reference Range Interpretation Comments Albumin (test code = 1751-7) 3.5 3.5-5.0 [facility] TylerGlobulin2019-08-05 18:57:00* Test Item Value Reference Range Interpretation Comments Globulin (test code = 84427-2) 3.4 2.3-3.5 [facility] TylerAlbumin/Globulin Ecbae2516-44-67 18:57:00 * Test Item Value Reference Range Interpretation Comments Albumin/Globulin Ratio (test code = 1759-0) 1.0 0.8-2.0 [facility] TylerAlkaline Lmjjisvuhbv6717-62-35 18:57:00* Test Item Value Reference Range Interpretation Comments Alkaline Phosphatase (test code = 6768-6) 85 40-150 [facility] TylerCreatine Mjpgdh7926-97-70 18:57:00* Test Item Value Reference Range Interpretation Comments Creatine Kinase (test code = 2157-6) 37 29-168 [facility] TylerTotal Dbjfwednl2825-69-67 18:57:00* Test Item Value Reference Range Interpretation Comments Total Bilirubin (test code = 1974-2) 0.2 0.2-1.2 [facility] TylerAspartate Amino Transf (AST/SGOT) 2019-02-10 18:57:00* Test Item Value Reference Range Interpretation Comments Aspartate Amino Transf (AST/SGOT) (test code = Aspartate Amino Transf (AST/SGOT)) 19 5-34 [facility] TylerAlanine Aminotransferase (ALT/SGPT) 2019-02-10 18:57:00* Test Item Value Reference Range Interpretation Comments Alanine Aminotransferase (ALT/SGPT) (test code = 1742-6) 12 0-55 [facility] TylerTotal Fkzlxew5680-11-48 18:57:00* Test Item Value Reference Range Interpretation Comments Total Protein (test code = 2885-2) 6.9 6.5-8.1 [facility] TylerAlbumin2019-08-05 18:57:00* Test Item Value Reference Range Interpretation Comments Albumin (test code = 1751-7) 3.5 3.5-5.0 [facility] TylerGlobulin2019-08-05 18:57:00* Test Item Value Reference Range Interpretation Comments Globulin (test code = 13472-9) 3.4 2.3-3.5 [facility] TylerAlbumin/Globulin Ddnyz8317-63-15 18:57:00 * Test Item Value Reference Range Interpretation Comments Albumin/Globulin Ratio (test code = 1759-0) 1.0 0.8-2.0 [facility] TylerAlkaline Qdwxtuuvgfa0742-90-32 18:57:00* Test Item Value Reference Range Interpretation Comments Alkaline Phosphatase (test code = 6768-6) 85 40-150 [facility] TylerCreatine Dfoxsb8925-64-72 18:57:00* Test Item Value Reference Range Interpretation Comments Creatine Kinase (test code = 2157-6) 37 29-168 [facility] TylerProthrombin Nwsl5326-44-98 18:49:00* Test Item Value Reference Range Interpretation Comments Prothrombin Time (test code = 5902-2) 12.1 11.9-14.5 [facility] TylerProthromb Time International Ratio 2019-02-10 18:49:00* Test Item Value Reference Range Interpretation Comments Prothromb Time International Ratio (test code = 6301-6) 0.85 Oral Anticoagulant Therapy INR Values:1. Low Intensity Therapy 1.5 - 2.02 . Moderate Intensity Therapy 2.0 - 3.03. High Intensity Therapy(1) 2.5 - 3. 54. High Intensity Therapy(2) 3.0 - 4.05. Panic Value INR > 5.0 [facility] TylerActivated Partial Thromboplast Time 2019-02-10 18:49:00* Test Item Value Reference Range Interpretation Comments Activated Partial Thromboplast Time (test code = 71428-9) 29.7 23.8-35.5 [facility] TylerProthrombin Xpcn4755-39-19 18:49:00* Test Item Value Reference Range Interpretation Comments Prothrombin Time (test code = 5902-2) 12.1 11.9-14.5 [facility] TylerProthromb Time International Ratio 2019-02-10 18:49:00* Test Item Value Reference Range Interpretation Comments Prothromb Time International Ratio (test code = 6301-6) 0.85 Oral Anticoagulant Therapy INR Values:1. Low Intensity Therapy 1.5 - 2.02 . Moderate Intensity Therapy 2.0 - 3.03. High Intensity Therapy(1) 2.5 - 3. 54. High Intensity Therapy(2) 3.0 - 4.05. Panic Value INR > 5.0 [facility] TylerActivated Partial Thromboplast Time 2019-02-10 18:49:00* Test Item Value Reference Range Interpretation Comments Activated Partial Thromboplast Time (test code = 25113-2) 29.7 23.8-35.5 [facility] TylerProthrombin Jmqp6942-71-87 18:49:00* Test Item Value Reference Range Interpretation Comments Prothrombin Time (test code = 5902-2) 12.1 11.9-14.5 [facility] TylerProthromb Time International Ratio 2019-02-10 18:49:00* Test Item Value Reference Range Interpretation Comments Prothromb Time International Ratio (test code = 6301-6) 0.85 Oral Anticoagulant Therapy INR Values:1. Low Intensity Therapy 1.5 - 2.02 . Moderate Intensity Therapy 2.0 - 3.03. High Intensity Therapy(1) 2.5 - 3. 54. High Intensity Therapy(2) 3.0 - 4.05. Panic Value INR > 5.0 [facility] TylerActivated Partial Thromboplast Time 2019-02-10 18:49:00* Test Item Value Reference Range Interpretation Comments Activated Partial Thromboplast Time (test code = 33616-5) 29.7 23.8-35.5 [facility] TylerWhite Blood Labfx8900-87-66 18:44:00* Test Item Value Reference Range Interpretation Comments White Blood Count (test code = 6690-2) 6.37 4.8-10.8 [facility] TylerRed Blood Ltkmw8598-03-68 18:44:00* Test Item Value Reference Range Interpretation Comments Red Blood Count (test code = 789-8) 3.68 3.6-5.1 [facility] TylerHemoglobin2019-08-05 18:44:00* Test Item Value Reference Range Interpretation Comments Hemoglobin (test code = 90555-9) 11.6 12.0-16.0 L [facility] TylerHematocrit2019-08-05 18:44:00* Test Item Value Reference Range Interpretation Comments Hematocrit (test code = 4544-3) 35.3 34.2-44.1 [facility] TylerMean Corpuscular Mwzhtd9490-26-36 18:44:00* Test Item Value Reference Range Interpretation Comments Mean Corpuscular Volume (test code = 787-2) 95.9 81-99 [facility] TylerMean Corpuscular Diwdjcimxz8669-77-86 18:44:00* Test Item Value Reference Range Interpretation Comments Mean Corpuscular Hemoglobin (test code = 785-6) 31.5 28-32 [facility] Corp[facility] Hemoglobin Concent 2019-02-10 18:44:00* Test Item Value Reference Range Interpretation Comments Mean Corpuscular Hemoglobin Concent (test code = 786-4) 32.9 31-35 [facility] TylerRed Cell Distribution Tqecw0261-47-91 18:44:00* Test Item Value Reference Range Interpretation Comments Red Cell Distribution Width (test code = 09334-1) 12.2 11.7 -14.4 [facility] TylerPlatelet Teeic9596-44-70 18:44:00* Test Item Value Reference Range Interpretation Comments Platelet Count (test code = 777-3) 265 140-360 [facility] TylerNeutrophils (%) (Auto)2019-02-10 18:44:00 * Test Item Value Reference Range Interpretation Comments Neutrophils (%) (Auto) (test code = 39954-1) 77.2 38.7-80.0 [facility] TylerLymphocytes (%) (Auto)2019-02-10 18:44:00 * Test Item Value Reference Range Interpretation Comments Lymphocytes (%) (Auto) (test code = 736-9) 12.9 18.0-39.1 L [facility] TylerMonocytes (%) (Auto)2019-02-10 18:44:00* Test Item Value Reference Range Interpretation Comments Monocytes (%) (Auto) (test code = 5905-5) 7.8 4.4-11.3 [facility] TylerEosinophils (%) (Auto)2019-02-10 18:44:00 * Test Item Value Reference Range Interpretation Comments Eosinophils (%) (Auto) (test code = 713-8) 1.3 0.0-6.0 [facility] TylerBasophils (%) (Auto)2019-02-10 18:44:00* Test Item Value Reference Range Interpretation Comments Basophils (%) (Auto) (test code = 706-2) 0.5 0.0-1.0 [facility] TylerIM GRANULOCYTES %2019-02-10 18:44:00* Test Item Value Reference Range Interpretation Comments IM GRANULOCYTES % (test code = IM GRANULOCYTES %) 0.3 0.0- 1.0 [facility] TylerNeutrophils # (Auto)2019-02-10 18:44:00* Test Item Value Reference Range Interpretation Comments Neutrophils # (Auto) (test code = 751-8) 4.9 2.1-6.9 [facility] TylerLymphocytes # (Auto)2019-02-10 18:44:00* Test Item Value Reference Range Interpretation Comments Lymphocytes # (Auto) (test code = 04304-8) 0.8 1.0-3.2 L [facility] TylerMonocytes # (Auto)2019-02-10 18:44:00* Test Item Value Reference Range Interpretation Comments Monocytes # (Auto) (test code = 742-7) 0.5 0.2-0.8 [facility] TylerEosinophils # (Auto)2019-02-10 18:44:00* Test Item Value Reference Range Interpretation Comments Eosinophils # (Auto) (test code = 711-2) 0.1 0.0-0.4 [facility] TylerBasophils # (Auto)2019-02-10 18:44:00* Test Item Value Reference Range Interpretation Comments Basophils # (Auto) (test code = 704-7) 0.0 0.0-0.1 [facility] TylerAbsolute Immature Granulocyte (auto 2019-02-10 18:44:00* Test Item Value Reference Range Interpretation Comments Absolute Immature Granulocyte (auto (lionel t code = Absolute Immature Granulocyte (auto) 0.02 0-0.1 [facility] TylerUrine ONN3350-03-46 18:33:00* Test Item Value Reference Range Interpretation Comments Urine WBC (test code = 5821-4) 0-5 0-5 [facility] TylerUrine TSH0868-42-60 18:33:00* Test Item Value Reference Range Interpretation Comments Urine RBC (test code = 35884-4) 0-5 0-5 [facility] TylerUrine Ouhnnful6057-86-99 18:33:00* Test Item Value Reference Range Interpretation Comments Urine Bacteria (test code = 35773-3) RARE NONE [facility] TylerUrine Epithelial Ifiie1737-67-85 18:33:00 * Test Item Value Reference Range Interpretation Comments Urine Epithelial Cells (test code = 98419-1) NONE NONE [facility] TylerUrine Bxpot7592-85-22 18:08:00* Test Item Value Reference Range Interpretation Comments Urine Color (test code = 5778-6) YELLOW YELLOW [facility] TylerUrine Qtxvosh5762-27-47 18:08:00* Test Item Value Reference Range Interpretation Comments Urine Clarity (test code = 61384-9) CLEAR CLEAR [facility] TylerUrine Specific Pszousg1253-74-62 18:08:00 * Test Item Value Reference Range Interpretation Comments Urine Specific [place] (test code = 5811-5) 1.005 1.010-1.02 5 L [facility] TylerUrine oN0230-81-23 18:08:00* Test Item Value Reference Range Interpretation Comments Urine pH (test code = 20194-2) 7 5-7 [facility] Leukocyte Uxlgjvpr5521-74-62 18:08:00* Test Item Value Reference Range Interpretation Comments Urine Leukocyte Esterase (test code = 5799-2) TRACE NEGATIVE H [facility] Xylpaxs3564-63-62 18:08:00* Test Item Value Reference Range Interpretation Comments Urine Nitrite (test code = 28242-9) NEGATIVE NEGATIVE [facility] Tyler[facility] Hiliyia2327-40-49 18:08:00* Test Item Value Reference Range Interpretation Comments Urine Protein (test code = 5804-0) NEGATIVE NEGATIVE [facility] TylerU[facility] Glucose (UA)2019-02-10 18:08:00* Test Item Value Reference Range Interpretation Comments Urine Glucose (UA) (test code = 2349-9) NEGATIVE NEGATIVE [facility] TylerUrine Qbworwe6643-48-59 18:08:00* Test Item Value Reference Range Interpretation Comments Urine Ketones (test code = 05935-2) NEGATIVE NEGATIVE [facility] Tyler[facility] Zucycspbndta8846-23-71 18:08:00* Test Item Value Reference Range Interpretation Comments Urine Urobilinogen (test code = 08705-8) 0.2 0.2-1 [facility] TylerUrine Lltjadbis0818-08-45 18:08:00* Test Item Value Reference Range Interpretation Comments Urine Bilirubin (test code = 1978-6) NEGATIVE NEGATIVE [facility] Tyler[facility] Amxlf3498-65-44 18:08:00* Test Item Value Reference Range Interpretation Comments Urine Blood (test code = 14815-1) TRACE NEGATIVE H [facility] YLWQBNWJ8664-55-19 12:37:00* Test Item Value Reference Range Interpretation [...] per HPF NONE Urine Source? Clean CatchURINALYSIS PXXZNTGU4989-20-37 12:29:00* Test Item Value Reference Range Interpretation [...] BACU) per HPF NONE [facility] Ihtuagf6020-30-31 08:01:00* Test Item Value Reference Range Interpretation Comments Bedside Glucose (test code = 83457-1) 115 70-120 Meter ID: [id number] [facility] Campus[facility] Glucose 2018-08-29 08:01:00* Test Item Value Reference Range Interpretation Comments Bedside Glucose (test code = 16063-0) 115 70-120 Meter ID: [id number] [facility] CampusCT [facility]BDOMEN[facility]PELVIS WO 2018-08-11 17:09:00 [place] [address] Patient Name: SHARLENE MOORE MR #: [id number] : 1935 Age/Sex: 83/F Req #: [id number] Adm Physician: Ordered by: DAVIDA ENAMORADO MD Report #: [id number] Location: ER Room/Bed: Procedure: [id number] CT /CT ABDOMEN/PELVIS WO Exam Date: 08/11/18 [...] 08/11/181712 COPY TO: DAVIDA ENAMORADO MD Sodium Ykizy1124-44-33 16:07:00* Test Item Value Reference Range Interpretation Comments Sodium Level (test code = 2951-2) 139 136-145 [facility] TylerPotassium Stpwy1290-72-38 16:07:00* Test Item Value Reference Range Interpretation Comments Potassium Level (test code = 2823-3) 4.0 3.5-5.1 [facility] TylerChloride Ihssq1884-54-84 16:07:00* Test Item Value Reference Range Interpretation Comments Chloride Level (test code = 2075-0) 102 98-107 [facility] TylerCarbon Dioxide Jsbpr3021-65-44 16:07:00* Test Item Value Reference Range Interpretation Comments Carbon Dioxide Level (test code = 2028-9) 26 22-29 [facility] TylerAnion Wrz0669-96-72 16:07:00* Test Item Value Reference Range Interpretation Comments Anion Gap (test code = 62585-0) 15.0 8-16 [facility] TylerBlood Urea Ayflxpyn9271-30-10 16:07:00* Test Item Value Reference Range Interpretation Comments Blood Urea Nitrogen (test code = 3094-0) 8 7-26 [facility] TylerCreatinine2019-02-03 16:07:00* Test Item Value Reference Range Interpretation Comments Creatinine (test code = 2160-0) 0.75 0.57-1.11 [facility] TylerBUN/Creatinine Vnlve6781-71-78 16:07:00* Test Item Value Reference Range Interpretation Comments BUN/Creatinine Ratio (test code = 3097-3) 11 6- [facility] TylerEstimat Glomerular Filtration Rate 2018-08-11 16:07:00* Test Item Value Reference Range Interpretation Comments Estimat Glomerular Filtration Rate (test code = 137231128) > 60 >60 Ranges were taken from the National Kidney Disease Education Program and the [facility] Kid[facility] Foundation literature.Reference ranges:60 or greater: Gqxfhy75-44 ( for 3 consecutive months): Chronic kidney disease 15 or less: Kidney failureUT Health North Campus TylerGlucose Tukjo8579-67-69 16:07:00* Test Item Value Reference Range Interpretation Comments Glucose Level (test code = TDS9336) 100 74-118 [facility] TylerCalcium Hnjhj4074-16-13 16:07:00* Test Item Value Reference Range Interpretation Comments Calcium Level (test code = 42255-4) 9.3 8.4-10.2 [facility] TylerTotal Cwdripvch2107-12-66 16:07:00* Test Item Value Reference Range Interpretation Comments Total Bilirubin (test code = 1975-2) 0.4 0.2-1.2 [facility] TylerAspartate Amino Transf (AST/SGOT) 2018-08-11 16:07:00* Test Item Value Reference Range Interpretation Comments Aspartate Amino Transf (AST/SGOT) (test code = Aspartate Amino Transf (AST/SGOT)) 28 5-34 [facility] TylerAlanine Aminotransferase (ALT/SGPT) 2018-08-11 16:07:00* Test Item Value Reference Range Interpretation Comments Alanine Aminotransferase (ALT/SGPT) (test code = 1742-6) 22 0-55 [facility] TylerTotal Muapbhr0563-95-21 16:07:00* Test Item Value Reference Range Interpretation Comments Total Protein (test code = 2885-2) 7.1 6.5-8.1 [facility] TylerAlbumin2019-02-03 16:07:00* Test Item Value Reference Range Interpretation Comments Albumin (test code = 1751-7) 4.1 3.5-5.0 [facility] TylerGlobulin2019-02-03 16:07:00* Test Item Value Reference Range Interpretation Comments Globulin (test code = 70570-9) 3.0 2.3-3.5 [facility] TylerAlbumin/Globulin Eaudg1020-74-65 16:07:00 * Test Item Value Reference Range Interpretation Comments Albumin/Globulin Ratio (test code = 1759-0) 1.4 0.8-2.0 [facility] TylerAlkaline Nfkmqfunloy1643-28-90 16:07:00* Test Item Value Reference Range Interpretation Comments Alkaline Phosphatase (test code = 6768-6) 69 40-150 [facility] TylerUrine KEQ9301-76-85 16:03:00* Test Item Value Reference Range Interpretation Comments Urine WBC (test code = 5821-4) 11-20 0-5 H [facility] TylerUrine UTB6382-02-25 16:03:00* Test Item Value Reference Range Interpretation Comments Urine RBC (test code = 03399-9) 0-5 0-5 [facility] TylerUrine Pjmggcms9498-27-64 16:03:00* Test Item Value Reference Range Interpretation Comments Urine Bacteria (test code = 31241-1) FEW NONE [facility] TylerUrine Epithelial Dfrhr0881-24-46 16:03:00 * Test Item Value Reference Range Interpretation Comments Urine Epithelial Cells (test code = 19722-7) FEW NONE [facility] TylerUrine Pjbwp8195-90-77 15:59:00* Test Item Value Reference Range Interpretation Comments Urine Color (test code = 5778-6) YELLOW YELLOW [facility] TylerUrine Viomohd4890-35-27 15:59:00* Test Item Value Reference Range Interpretation Comments Urine Clarity (test code = 64210-9) CLEAR CLEAR [facility] Specific Ejdhgss8478-19-10 15:59:00 * Test Item Value Reference Range Interpretation Comments Urine Specific [place] (test code = 5811-5) 1.000 1.010-1.02 5 L [facility] TylerUrine rG6694-05-81 15:59:00* Test Item Value Reference Range Interpretation Comments Urine pH (test code = 88361-0) 7 5-7 [facility] TylerUrine Leukocyte Cczvxjce0915-35-98 15:59:00* Test Item Value Reference Range Interpretation Comments Urine Leukocyte Esterase (test code = 5799-2) 1+ NEGATIVE H [facility] TylerUrine Wbgffaf9839-06-40 15:59:00* Test Item Value Reference Range Interpretation Comments Urine Nitrite (test code = 15945-3) NEGATIVE NEGATIVE [facility] TylerUrine Bqgjznb5379-94-46 15:59:00* Test Item Value Reference Range Interpretation Comments Urine Protein (test code = 5804-0) NEGATIVE NEGATIVE [facility] TylerUrine Glucose (UA)2018-08-11 15:59:00* Test Item Value Reference Range Interpretation Comments Urine Glucose (UA) (test code = 2349-9) NEGATIVE NEGATIVE [facility] TylerUrine Mwbpgrr2075-37-76 15:59:00* Test Item Value Reference Range Interpretation Comments Urine Ketones (test code = 87363-4) NEGATIVE NEGATIVE [facility] TylerUrine Mstnguojktrl0389-50-14 15:59:00* Test Item Value Reference Range Interpretation Comments Urine Urobilinogen (test code = 83462-0) 0.2 0.2-1 [facility] TylerUrine Htkuztlpj8641-50-45 15:59:00* Test Item Value Reference Range Interpretation Comments Urine Bilirubin (test code = 1978-6) NEGATIVE NEGATIVE [facility] TylerUrine Qtglk1318-01-34 15:59:00* Test Item Value Reference Range Interpretation Comments Urine Blood (test code = 38696-2) NEGATIVE NEGATIVE [facility] TylerWhite Blood Tbqdl9717-43-48 15:53:00* Test Item Value Reference Range Interpretation Comments White Blood Count (test code = 6690-2) 6.17 4.8-10.8 [facility] TylerRed Blood Bivyc8611-63-92 15:53:00* Test Item Value Reference Range Interpretation Comments Red Blood Count (test code = 789-8) 3.77 3.6-5.1 [facility] TylerHemoglobin2019-02-03 15:53:00* Test Item Value Reference Range Interpretation Comments Hemoglobin (test code = 97681-4) 12.6 12.0-16.0 [facility] TylerHematocrit2019-02-03 15:53:00* Test Item Value Reference Range Interpretation Comments Hematocrit (test code = 4544-3) 35.8 34.2-44.1 [facility] TylerMean Corpuscular Bwulqk9759-23-38 15:53:00* Test Item Value Reference Range Interpretation Comments Mean Corpuscular Volume (test code = 787-2) 95.0 81-99 [facility] TylerMean Corpuscular Uyonwkntav3871-28-05 15:53:00* Test Item Value Reference Range Interpretation Comments Mean Corpuscular Hemoglobin (test code = 785-6) 33.4 28-32 H [facility] TylerMean Corpuscular Hemoglobin Concent 2018-08-11 15:53:00* Test Item Value Reference Range Interpretation Comments Mean Corpuscular Hemoglobin Concent (test code = 786-4) 35.2 31-35 H [facility] TylerRed Cell Distribution Xejst9846-08-80 15:53:00* Test Item Value Reference Range Interpretation Comments Red Cell Distribution Width (test code = 53509-5) 12.4 11.7 -14.4 [facility] TylerPlatelet Dkzfr5635-35-03 15:53:00* Test Item Value Reference Range Interpretation Comments Platelet Count (test code = 777-3) 266 140-360 [facility] TylerNeutrophils (%) (Auto)2018-08-11 15:53:00 * Test Item Value Reference Range Interpretation Comments Neutrophils (%) (Auto) (test code = 82361-3) 77.1 38.7-80.0 [facility] TylerLymphocytes (%) (Auto)2018-08-11 15:53:00 * Test Item Value Reference Range Interpretation Comments Lymphocytes (%) (Auto) (test code = 736-9) 14.1 18.0-39.1 L [facility] TylerMonocytes (%) (Auto)2018-08-11 15:53:00* Test Item Value Reference Range Interpretation Comments Monocytes (%) (Auto) (test code = 5905-5) 6.6 4.4-11.3 [facility] TylerEosinophils (%) (Auto)2018-08-11 15:53:00 * Test Item Value Reference Range Interpretation Comments Eosinophils (%) (Auto) (test code = 713-8) 1.1 0.0-6.0 [facility] TylerBasophils (%) (Auto)2018-08-11 15:53:00* Test Item Value Reference Range Interpretation Comments Basophils (%) (Auto) (test code = 706-2) 0.8 0.0-1.0 [facility] TylerIM GRANULOCYTES %2018-08-11 15:53:00* Test Item Value Reference Range Interpretation Comments IM GRANULOCYTES % (test code = IM GRANULOCYTES %) 0.3 0.0- 1.0 [facility] TylerNeutrophils # (Auto)2018-08-11 15:53:00* Test Item Value Reference Range Interpretation Comments Neutrophils # (Auto) (test code = 751-8) 4.8 2.1-6.9 [facility] TylerLymphocytes # (Auto)2018-08-11 15:53:00* Test Item Value Reference Range Interpretation Comments Lymphocytes # (Auto) (test code = 02385-8) 0.9 1.0-3.2 L [facility] TylerMonocytes # (Auto)2018-08-11 15:53:00* Test Item Value Reference Range Interpretation Comments Monocytes # (Auto) (test code = 742-7) 0.4 0.2-0.8 [facility] TylerEosinophils # (Auto)2018-08-11 15:53:00* Test Item Value Reference Range Interpretation Comments Eosinophils # (Auto) (test code = 711-2) 0.1 0.0-0.4 [facility] TylerBasophils # (Auto)2018-08-11 15:53:00* Test Item Value Reference Range Interpretation Comments Basophils # (Auto) (test code = 704-7) 0.1 0.0-0.1 [facility] TylerAbsolute Immature Granulocyte (auto 2018-08-11 15:53:00* Test Item Value Reference Range Interpretation Comments Absolute Immature Granulocyte (auto (lionel t code = Absolute Immature Granulocyte (auto) 0.02 0-0.1 [facility] TylerBONE DXA DUAL OXNNPO3227-24-60 15:50:00 [facility] [address] [place] [address] Patient Name: SHARLENE MOORE MR #: [id number] : 3 Age/Sex: 83/F Req #: [id number] Adm Physician: Ordered by: LIGIA WEST DO Report #: [id number] Location: DX Room/Bed: Procedure: [id number] DX/B ONE DXA DUAL ENERGY Exam Date: Exam Time: REPORT STATUS: Signed EXAM: BONE MINERA L DENSITY HISTORY: Bone mineralization evaluation COMPARISON: None DISCU SSION: Evaluation of the left hip and lumbar spine was performed utilizing [employer] bone densitometer. The study is technically [...] 1550 COPY TO: LIGIA WEST DO Urine Mcdjiuwlwn0098-45-07 22:38:00* Test Item Value Reference Range Interpretation Comments Urine Osmolality (test code = 2695-5) 136 . 24 hr : 300 - 900 Random: 50 - 1400 After 12hr fluid restriction: >850Performed at: [facility] [id number] Director: Lauri Read MD, Phone: [phone] Health [facility] TylerUrine Osmolality 2018-07-22 22:38:00* Test Item Value Reference Range Interpretation Comments Urine Osmolality (test code = 2695-5) 136 . 24 hr : 300 - 900 Random: 50 - 1400 After 12hr fluid restriction: >850Performed at: [facility] [address] [id number] Director: Lauri Read MD, Phone: [phone] [facility] TylerUrine Osmolality 2018-07-22 22:38:00* Test Item Value Reference Range Interpretation Comments Urine Osmolality (test code = 2695-5) 136 . 24 hr : 300 - 900 Random: 50 - 1400 After 12hr fluid restriction: >850Performed at: [facility] - [facility] [address] [id number] Director: Lauri Read MD, Phone: [phone] [facility] Glucose 2018-07-21 11:40:00* Test Item Value Reference Range Interpretation Comments Bedside Glucose (test code = 43645-4) 145 70-120 H Meter ID: [id number] [facility] Glucose 2018-07-21 11:40:00* Test Item Value Reference Range Interpretation Comments Bedside Glucose (test code = 62981-0) 145 70-120 H Meter ID: [id number] Houston Healthcare Southeastodium Level 2018-07-21 06:52:00* Test Item Value Reference Range Interpretation Comments Sodium Level (test code = 2951-2) 137 136-145 [facility] TylerPotassium Rieed1607-54-94 06:52:00* Test Item Value Reference Range Interpretation Comments Potassium Level (test code = 2823-3) 4.2 3.5-5.1 [facility] TylerChloride Hqgig4338-96-54 06:52:00* Test Item Value Reference Range Interpretation Comments Chloride Level (test code = 2075-0) 104 98-107 [facility] TylerCarbon Dioxide Jimsk4062-84-03 06:52:00* Test Item Value Reference Range Interpretation Comments Carbon Dioxide Level (test code = 2028-9) 24 22-29 [facility] TylerAnion Unl9976-36-15 06:52:00* Test Item Value Reference Range Interpretation Comments Anion Gap (test code = 84182-5) 13.2 8-16 [facility] TylerBlood Urea Yuelltty4104-13-25 06:52:00* Test Item Value Reference Range Interpretation Comments Blood Urea Nitrogen (test code = 3094-0) 13 01-31 [facility] TylerCreatinine2019-01-13 06:52:00* Test Item Value Reference Range Interpretation Comments Creatinine (test code = 2160-0) 0.72 0.57-1.11 [facility] TylerBUN/Creatinine Ukilc4840-88-26 06:52:00* Test Item Value Reference Range Interpretation Comments BUN/Creatinine Ratio (test code = 3097-3) 18 12-31 [facility] TylerEstimat Glomerular Filtration Rate 2018-07-21 06:52:00* Test Item Value Reference Range Interpretation Comments Estimat Glomerular Filtration Rate (test code = 448936854) > 60 >60 Ranges were taken from the National Kidney Disease Education Program and the [facility] Kidney Foundation literature.Reference ranges:60 or greater: Cvdxoz42-97 ( for 3 consecutive months): Chronic kidney disease 15 or less: Kidney failureUT Health North Campus TylerGlucose Kdait6581-84-09 06:52:00* Test Item Value Reference Range Interpretation Comments Glucose Level (test code = BNZ1894) 104 74-118 [facility] TylerCalcium Mvkkc0741-13-50 06:52:00* Test Item Value Reference Range Interpretation Comments Calcium Level (test code = 96540-2) 9.3 8.4-10.2 [facility] TylerWhite Blood Ixcte6541-39-26 06:27:00* Test Item Value Reference Range Interpretation Comments White Blood Count (test code = 6690-2) 7.61 4.8-10.8 [facility] TylerRed Blood Rddvg3469-15-69 06:27:00* Test Item Value Reference Range Interpretation Comments Red Blood Count (test code = 789-8) 3.88 3.6-5.1 [facility] TylerHemoglobin2019-01-13 06:27:00* Test Item Value Reference Range Interpretation Comments Hemoglobin (test code = 58138-7) 12.6 12.0-16.0 [facility] TylerHematocrit2019-01-13 06:27:00* Test Item Value Reference Range Interpretation Comments Hematocrit (test code = 4544-3) 37.6 34.2-44.1 [facility] TylerMean Corpuscular Gwvosu0953-03-02 06:27:00* Test Item Value Reference Range Interpretation Comments Mean Corpuscular Volume (test code = 787-2) 96.9 81-99 [facility] TylerMean Corpuscular Meilazqqek7506-81-83 06:27:00* Test Item Value Reference Range Interpretation Comments Mean Corpuscular Hemoglobin (test code = 785-6) 32.5 28-32 [facility] Corpuscular Hemoglobin Concent 2018-07-21 06:27:00* Test Item Value Reference Range Interpretation Comments Mean Corpuscular Hemoglobin Concent (test code = 786-4) 33.5 31-35 [facility] TylerRed Cell Distribution Hrnmj9289-36-97 06:27:00* Test Item Value Reference Range Interpretation Comments Red Cell Distribution Width (test code = 27781-3) 12.3 11.7 -14.4 [facility] TylerPlatelet Bhkpn2539-99-10 06:27:00* Test Item Value Reference Range Interpretation Comments Platelet Count (test code = 777-3) 265 140-360 [facility] TylerNeutrophils (%) (Auto)2018-07-21 06:27:00 * Test Item Value Reference Range Interpretation Comments Neutrophils (%) (Auto) (test code = 99013-9) 67.6 38.7-80.0 [facility] TylerLymphocytes (%) (Auto)2018-07-21 06:27:00 * Test Item Value Reference Range Interpretation Comments Lymphocytes (%) (Auto) (test code = 736-9) 17.6 18.0-39.1 L [facility] TylerMonocytes (%) (Auto)2018-07-21 06:27:00* Test Item Value Reference Range Interpretation Comments Monocytes (%) (Auto) (test code = 5905-5) 11.7 4.4-11.3 H [facility] TylerEosinophils (%) (Auto)2018-07-21 06:27:00 * Test Item Value Reference Range Interpretation Comments Eosinophils (%) (Auto) (test code = 713-8) 2.0 0.0-6.0 [facility] TylerBasophils (%) (Auto)2018-07-21 06:27:00* Test Item Value Reference Range Interpretation Comments Basophils (%) (Auto) (test code = 706-2) 0.8 0.0-1.0 [facility] TylerIM GRANULOCYTES %2018-07-21 06:27:00* Test Item Value Reference Range Interpretation Comments IM GRANULOCYTES % (test code = IM GRANULOCYTES %) 0.3 0.0- 1.0 [facility] TylerNeutrophils # (Auto)2018-07-21 06:27:00* Test Item Value Reference Range Interpretation Comments Neutrophils # (Auto) (test code = 751-8) 5.2 2.1-6.9 [facility] TylerLymphocytes # (Auto)2018-07-21 06:27:00* Test Item Value Reference Range Interpretation Comments Lymphocytes # (Auto) (test code = 45283-5) 1.3 1.0-3.2 [facility] TylerMonocytes # (Auto)2018-07-21 06:27:00* Test Item Value Reference Range Interpretation Comments Monocytes # (Auto) (test code = 742-7) 0.9 0.2-0.8 H [facility] TylerEosinophils # (Auto)2018-07-21 06:27:00* Test Item Value Reference Range Interpretation Comments Eosinophils # (Auto) (test code = 711-2) 0.2 0.0-0.4 [facility] TylerBasophils # (Auto)2018-07-21 06:27:00* Test Item Value Reference Range Interpretation Comments Basophils # (Auto) (test code = 704-7) 0.1 0.0-0.1 [facility] TylerAbsolute Immature Granulocyte (auto 2018-07-21 06:27:00* Test Item Value Reference Range Interpretation Comments Absolute Immature Granulocyte (auto (lionel t code = Absolute Immature Granulocyte (auto) 0.02 0-0.1 [facility] TylerUrine Random Kysqov3316-61-25 07:45:00* Test Item Value Reference Range Interpretation Comments Urine Random Sodium (test code = 2955-3) 38 [facility] TylerUrine Random Tnuojr4467-24-83 07:45:00* Test Item Value Reference Range Interpretation Comments Urine Random Sodium (test code = 2955-3) 38 [facility] TylerUrine Random Wvwnja5849-23-87 07:45:00* Test Item Value Reference Range Interpretation Comments Urine Random Sodium (test code = 2955-3) 38 [facility] TylerUrine Random Evytln2420-62-93 07:45:00* Test Item Value Reference Range Interpretation Comments Urine Random Sodium (test code = 2955-3) 38 [facility] TylerTotal Zqgyoipsv3106-47-82 06:14:00* Test Item Value Reference Range Interpretation Comments Total Bilirubin (test code = 1975-2) 0.5 0.2-1.2 [facility] TylerAspartate Amino Transf (AST/SGOT) 2018-07-20 06:14:00* Test Item Value Reference Range Interpretation Comments Aspartate Amino Transf (AST/SGOT) (test code = Aspartate Amino Transf (AST/SGOT)) 15 5-34 [facility] TylerAlanine Aminotransferase (ALT/SGPT) 2018-07-20 06:14:00* Test Item Value Reference Range Interpretation Comments Alanine Aminotransferase (ALT/SGPT) (test code = 1742-6) 11 0-55 [facility] TylerTotal Hkfotol4261-06-96 06:14:00* Test Item Value Reference Range Interpretation Comments Total Protein (test code = 2885-2) 5.7 6.5-8.1 L [facility] TylerAlbumin2019-01-12 06:14:00* Test Item Value Reference Range Interpretation Comments Albumin (test code = 1751-7) 3.2 3.5-5.0 L [facility] TylerGlobulin2019-01-12 06:14:00* Test Item Value Reference Range Interpretation Comments Globulin (test code = 99599-2) 2.5 2.3-3.5 [facility] TylerAlbumin/Globulin Lubxw1771-47-98 06:14:00 * Test Item Value Reference Range Interpretation Comments Albumin/Globulin Ratio (test code = 1759-0) 1.3 0.8-2.0 [facility] TylerAlkaline Mgltxljcavy8393-70-08 06:14:00* Test Item Value Reference Range Interpretation Comments Alkaline Phosphatase (test code = 6768-6) 65 40-150 [facility] TylerUrine Hofpp7062-85-66 21:56:00* Test Item Value Reference Range Interpretation Comments Urine Color (test code = 5778-6) YELLOW YELLOW [facility] TylerUrine Ioieskb6480-84-94 21:56:00* Test Item Value Reference Range Interpretation Comments Urine Clarity (test code = 88024-8) HAZY CLEAR [facility] TylerUrine Specific Hvkgxao8328-99-06 21:56:00 * Test Item Value Reference Range Interpretation Comments Urine Specific [place] (test code = 5811-5) 1.005 1.010-1.02 5 L [facility] TylerUrine aF3053-99-86 21:56:00* Test Item Value Reference Range Interpretation Comments Urine pH (test code = 52629-8) 6.5 5-7 [facility] TylerUrine Leukocyte Klkdhteg3543-64-79 21:56:00* Test Item Value Reference Range Interpretation Comments Urine Leukocyte Esterase (test code = 5799-2) 1+ NEGATIVE H [facility] TylerUrine Nqkmzml5848-24-53 21:56:00* Test Item Value Reference Range Interpretation Comments Urine Nitrite (test code = 54072-8) [facility] Gwbibll7418-29-74 21:56:00* Test Item Value Reference Range Interpretation Comments Urine Protein (test code = 5804-0) [facility]GATIVE [facility]IVE [facility] Glucose (UA)2018-07-19 21:56:00* Test Item Value Reference Range Interpretation Comments Urine Glucose (UA) (test code = 2349-9) 1+ [facility]GATIVE [facility] Uasbakt5557-97-04 21:56:00* Test Item Value Reference Range Interpretation Comments Urine Ketones (test code = 76877-8) NEGATIVE NEGATIVE [facility] Spmalsbtypoh8517-32-72 21:56:00* Test Item Value Reference Range Interpretation Comments Urine Urobilinogen (test code = 24592-8) 0.2 0.2-1 [facility] Dibtsxaqf9398-53-07 21:56:00* Test Item Value Reference Range Interpretation Comments Urine Bilirubin (test code = 1978-6) NEGATIVE [facility]IVE [facility] Sesdj6617-89-22 21:56:00* Test Item Value Reference Range Interpretation Comments Urine Blood (test code = 19636-6) TRACE NEGATIVE H [facility] NGZ1022-63-56 21:56:00* Test Item Value Reference Range Interpretation Comments Urine WBC (test code = 5821-4) 11-20 0-5 [facility] VDK2671-19-90 21:56:00* Test Item Value Reference Range Interpretation Comments Urine RBC (test code = 15860-7) 6-10 0-5 [facility] Msdzsddz8452-00-77 21:56:00* Test Item Value Reference Range Interpretation Comments Urine Bacteria (test code = 09642-4) MODERATE NONE [facility] Epithelial Esppe6998-78-63 21:56:00 * Test Item Value Reference Range Interpretation Comments Urine Epithelial Cells (test code = 36764-1) FEW NONE [facility] Tyler[facility] Kinase YE7117-76-45 19:37:00* Test Item Value Reference Range Interpretation Comments Creatine Kinase MB (test code = 64362-4) 1.40 0-5.0 [facility] TylerTroponin R9205-81-46 19:37:00* Test Item Value Reference Range Interpretation Comments Troponin I (test code = NKV0316) < 0.001 0-0.300 [facility] Tyler[facility] Kinase WF9990-23-19 19:37:00* Test Item Value Reference Range Interpretation Comments Creatine Kinase MB (test code = 12955-3) 1.40 0-5.0 [facility] TylerTroponin A6372-89-70 19:37:00* Test Item Value Reference Range Interpretation Comments Troponin I (test code = JAT8049) < 0.001 0-0.300 [facility] Tyler[facility] Natriuretic Oicjfuf7105-31-93 19:33:00* Test Item Value Reference Range Interpretation Comments B-Type Natriuretic Peptide (test code = 07466-0) 29.9 0-100 [facility] Nat[facility] Wbgnkrb2794-76-31 19:33:00* Test Item Value Reference Range Interpretation Comments B-Type Natriuretic Peptide (test code = 26792-7) 29.9 0-100 [facility] Vclmcml3304-58-77 19:33:00* Test Item Value Reference Range Interpretation Comments B-Type Natriuretic Peptide (test code = 01056-2) 29.9 0-100 [facility] Tyler[facility] Tfyoegt4707-13-91 19:33:00* Test Item Value Reference Range Interpretation Comments B-Type Natriuretic Peptide (test code = 57777-7) 29.9 0-100 [facility] TylerAct[facility] Partial Thromboplast Time 2018-07-19 19:30:00* Test Item Value Reference Range Interpretation Comments Activated Partial Thromboplast Time (test code = 73096-6) 29.9 23.8-35.5 [facility] Tyler[facility] Partial Thromboplast Time 2018-07-19 19:30:00* Test Item Value Reference Range Interpretation Comments Activated Partial Thromboplast Time (test code = 22202-5) 29.9 23.8-35.5 [facility] TylerCreatine Lcpafp6794-28-96 19:29:00* Test Item Value Reference Range Interpretation Comments Creatine Kinase (test code = 2157-6) 123 29-168 [facility] TylerCreatine Lkthiv6508-15-78 19:29:00* Test Item Value Reference Range Interpretation Comments Creatine Kinase (test code = 2157-6) 123 29168 [facility] TylerProthrombin Vakl0380-23-95 19:28:00* Test Item Value Reference Range Interpretation Comments Prothrombin Time (test code = 5902-2) 12.3 11.9-14.5 [facility] TylerProthromb Time International Ratio 2018-07-19 19:28:00* Test Item Value Reference Range Interpretation Comments Prothromb Time International Ratio (test code = 6301-6) 0.84 Oral Anticoagulant Therapy INR Values:1. Low Intensity Therapy 1.5 - 2.02 . Moderate Intensity Therapy 2.0 - 3.03. High Intensity Therapy(1) 2.5 - 3. 54. High Intensity Therapy(2) 3.0 - 4.05. Panic Value INR > 5.0 [facility] TylerProthrombin Xsfz1360-54-34 19:28:00* Test Item Value Reference Range Interpretation Comments Prothrombin Time (test code = 5902-2) 12.3 11.9-14.5 [facility] TylerProthromb Time International Ratio 2018-07-19 19:28:00* Test Item Value Reference Range Interpretation Comments Prothromb Time International Ratio (test code = 6301-6) 0.84 Oral Anticoagulant Therapy INR Values:1. Low Intensity Therapy 1.5 - 2.02 . Moderate Intensity Therapy 2.0 - 3.03. High Intensity Therapy(1) 2.5 - 3. 54. High Intensity Therapy(2) 3.0 - 4.05. Panic Value INR > 5.0 [facility] Tyler[facility]LE [facility])2018-07-19 18:37:00 [place] [address] Patient Name: SHARLENE MOORE MR #: [id number] : 1935 Age/Sex: 83/F Req #: [id number] Adm Physician: Ordered by: STELLA FUNES MD Report #: [id number] Location: ER Room/Bed: Procedure: [id number] DX /CHEST SINGLE (PORTABLE) Exam Date: 07/19/18 [...] COPY TO: STELLA FUNES MD CT ABDOMEN/PELVIS I6877-54-77 14:47:00 [place] [address] Patient Name: SHARLENE MOORE MR #: [id number] : 1935 Age/Sex: 83/F Req #: [id number] Adm Physician: Ordered by: LIGIA WEST DO Report #: [id number] Location: CT Room/Bed: Procedure: [id number] CT/C T ABDOMEN/PELVIS W Exam Date: 07/16/18 Exam Time: REPORT STATUS: Signed EXAM: C T Abdomen and Pelvis WITH contrast INDICATION: [id number] 1430 LOWER ABD PAIN/DIVERTICULOSIS COMPARISON: None. TECHNIQUE: [...] COPY TO: LIGIA WEST DO Blood Urea Exyvmguh5904-14-07 14:19:00* Test Item Value Reference Range Interpretation Comments Blood Urea Nitrogen (test code = 3094-0) 8 - [facility] TylerCreatinine2019-[facility] 14:19:00* Test Item Value Reference Range Interpretation Comments Creatinine (test code = 2160-0) 0.80 0.57-1.11 [facility] TylerBUN/Creatinine Byeuc8271-83-35 14:19:00* Test Item Value Reference Range Interpretation Comments BUN/Creatinine Ratio (test code = 3097-3) 10 12-31 [facility] TylerEstimat Glomerular Filtration Rate 2018-07-16 14:19:00* Test Item Value Reference Range Interpretation Comments Estimat Glomerular Filtration Rate (test code = 293393914) > 60 >60 Ranges were taken from the National Kidney Disease Education Program and the [facility] literature.Reference ranges:60 or greater: Cutdwh63-31 ( for 3 consecutive months): Chronic kidney disease 15 or less: Kidney failureUT Health North Campus TylerBEDSIDE GLUCOSE YAKYAYZ6869-39-47 16:41:03535 [facility] GLUCOSE WNUSTSE4620-26-64 13:05:43773Hpxwdtvo [facility] BEDSIDE GLUCOSE PCJUFVG8423-36-59 21:21:95591[place] GlvuajkLWNDEOUHJ2537-61-52 10:07:0012.3[facility] QtftzrqMTQOQYYEJ7014-15-85 10:07:000.6[facility] JEREKHCES6272-49-75 10:07:19240Abvwotqx LmhzfoqRSJJVUJDV4517-90-38 10:07:004.3 [facility] FaadbjeQNKKNVEUO5399-74-05 10:07:007.6[facility] HermannCHEMISTRY 2011-08-25 10:07:0028[facility] IkojapbEUKGICCBI0011-73-51 10:07:33218Pscgccip GawgdjzWVZRRORVM4621-05-86 10:07:005[facility] EsxirkqTKDTSDYCN6646-74-84 10:07:00 131[facility] BkjthemSNKKWOJTIR1044-98-26 10:07:0010.9[facility] HermannHEMATOLOGY 2011-08-25 10:07:003.48[facility] TekwnslLDTHUXWMYK3598-64-74 10:07:007.1[facility] NgnmknmAAJPSVCMFM6598-31-30 10:07:0013.9[facility] InsisoxGFWJUPZVQQ3390-60-96 10:07:0033.5[facility] NnbycidXFOOASANOJ9398-14-50 10:07:00* Test Item Value Reference Range Interpretation Comments MCH (test code = MCH) 31.5 pg 27.0-31.0 H [facility] IbxgiawDHNYDZQEHT2884-16-50 10:07:0094.0[facility] HermannHEMATOLOGY 2011-08-25 10:07:0032.7[facility] ZujdurbCNJBWVYPLB8427-87-31 10:07:009.3[facility] VudcyxdORVJLTRGHX5696-76-69 10:07:28493Dwbofryp KscoptoOSIZXMTVEO9022-42-25 10:07:000.0[facility] VilirtoRVJGBEBAIQ5649-70-98 10:07:00Normal (08/25/2011 04:07:00) [facility] QwkxmeyFRLZARFHEB6756-66-53 10:07:00Normal (08/25/2011 04:07:00) [facility] LyuixwvMKBGNUBIWV9311-91-55 10:07:00* Test Item Value Reference Range Interpretation Comments Tot Cell Ct (test code = Tot Cell Ct) 100 1 [facility] DdainwjWVPAFGQBVM4835-26-89 10:07:005.0[facility] HermannHEMATOLOGY 2011-08-25 10:07:000.0[facility] JvkehhxUCOWZQFVQI1917-87-25 10:07:000.0[facility] NtyutkyRRNINLLGGB6547-83-97 10:07:0026.0[facility] UmfjfeaIQXTZPBVZA9639-15-60 10:07:004.9[facility] SufkdraZOCVLECLYB7310-88-75 10:07:000.4[facility] [place] FOHTTRNIUH3222-42-97 10:07:000.0[facility] DsgbifzISXBBPBRIH3708-81-16 10:07:001.8 [facility] MgjzgsiCQHFSUTXGI9723-88-25 10:07:0069.0[facility] HermannCHEMISTRY 2011-08-24 10:20:0013.3[facility] SiymnjxKESWFZFLC9880-54-26 10:20:33082Tcybgkeo GkvrrkoDASJMBRLE6160-81-22 10:20:0026[facility] CahlmakEERLLVEAD5414-99-16 10:20:007.8[facility] LcduekjRZYYDEYGG3795-50-91 10:20:004.3[facility] MEWUAHXFU7901-37-86 10:20:29440Frrttrme WbesnnjIDSLBWQMC3306-09-69 10:20:008 [facility] IasikvdABXIEZHXZ6724-30-90 10:20:92635Alejxjhy HermannCHEMISTRY 2011-08-24 10:20:000.7[facility] ZayqbrgJRIJMUXZRH6626-16-53 10:20:007.4[facility] EvnbejnEYGEORIBHS0964-70-43 10:20:000.7[facility] WxewymtEAMYIJJUBH3341-15-37 10:20:000.7[facility] WdlinypQGRAGWVEOQ8482-31-35 10:20:000.0[facility] BJSBNNAJXH5815-23-59 10:20:000.0[facility] IhfxclpHYNSUJCLEL3196-54-65 10:20:000.0 [facility] GeaxssiUTSOBPBBEK6628-35-93 10:20:0084.5[facility] HermannHEMATOLOGY 2011-08-24 10:20:007.8[facility] TohkokeVUKBRSAXHF6868-85-06 10:20:000.0[facility] OkvxognXPAOIBTTYG4988-91-36 10:20:007.7[facility] DhlrfeuNRGWEINJOI4001-38-59 10:20:0034.5[facility] WhzrquuRPOLMNGOYG6556-44-71 10:20:0013.2[facility] [place] EVVOGIMXFB0106-73-69 10:20:008.7[facility] KqjcquhNGAFVNKNCD6421-12-53 10:20:00 93.3[facility] QdoiiouJVUEKPLKTN2978-24-93 10:20:00* Test Item Value Reference Range Interpretation Comments MCH (test code = MCH) 32.2 pg 27.0-31.0 H [facility] FthbxcsPSIGSMQTUK4690-99-75 10:20:0033.1[facility] HermannHEMATOLOGY 2011-08-24 10:20:003.55[facility] MdzbrhxZSWIXNHRMR9042-94-80 10:20:0011.4[facility] FrrhxriEYTWRCLRAI8363-05-72 10:20:22122Noatffel TnchtxbZTFFHNPVLM5409-11-32 10:20:009.2[facility] JntehnlBXWKOHHRP3018-40-96 17:20:0024[facility] [place] HGVKZZVHY3802-50-15 17:20:007.5[facility] WzilhzvGPZDFRPZU1914-55-65 17:20:003.8 [facility] HpusjadYTFRDAIZW2413-85-26 17:20:0095[facility]annCHEMISTRY 2011-08-21 17:20:000.3[facility] VbdshogSQCHDTDSH5565-41-89 17:20:0016[facility] IpshiotOUJGJWORV4451-33-18 17:20:008.4[facility] OliodjsKCCFZXHNH2009-33-25 17:20:0027[facility] NjbcuxlVQENPTUAP6446-15-80 17:20:003.8[facility] [place] IAOVEUFXQ9206-08-81 17:20:46731Ngwibxyk KyqiswxYQIAAHTWM2509-44-91 17:20:0013 [facility] VqxoyakOHDJIFHRQ5079-49-62 17:20:11760[place] HermannCHEMISTRY 2011-08-21 17:20:000.6[facility] CiecwapQPSHWEPBI5974-28-27 17:20:70913Cxnffhtw DtjmkpdLYSTAJSHN1250-27-32 17:20:003.7[facility] EdqkhtzDWOMAFDQQ8409-28-10 17:20:001.0[facility] BnbwwywNHLOBNCTT0711-94-05 17:20:0022[facility] QMTJLQJLL9151-53-33 17:20:0013.8[facility] ZqyxsrnNIRPJJEPHE7332-51-80 17:20:00* Test Item Value Reference Range Interpretation Comments PTT (test code = PTT) 30.3 s 22.9-35.8 N [facility] OagbhmbCAQGQZYDGR6727-33-33 17:20:00* Test Item Value Reference Range Interpretation Comments PT (test code = PT) 11.8 s 12.0-14.7 L [facility] ElijbwjINNYWMEDGH3518-31-65 17:20:000.86[facility] HermannHEMATOLOGY 2011-08-21 17:20:009.3[facility] TzeraaeANHGZKMSPE4384-97-84 17:20:0013.0[facility] OcovpqlUUJSXBHOAF0049-82-21 17:20:52179Pcwxdbpd DfdlgplCPUVLIGWRH5069-30-22 17:20:0036.6[facility] MjhllksJKVIFAJFQX2770-16-96 17:20:0034.6[facility] [place] DSHVXPFCPI9022-98-81 17:20:0092.3[facility] FxfinysUATUHTIPDU0434-96-15 17:20:00 12.6[facility] IddszemMJHIQEPMLJ0286-33-40 17:20:00* Test Item Value Reference Range Interpretation Comments MCH (test code = MCH) 31.9 pg 27.0-31.0 H [facility] NsegkkxBVLKZFVZVJ6727-06-45 17:20:003.96[facility] HermannHEMATOLOGY 2011-08-21 17:20:005.5[facility] SuskbhpEJNVOWIXCR7514-43-62 17:20:000.0[facility] EsiqrtuKFWJQKQBFL2761-74-41 17:20:001.0[facility] HhuvngeEIPSCMUYOK1542-93-79 17:20:000.3[facility] JjfitmdPHQVMJYAHE0414-45-14 17:20:005.3[facility] [place] QMUMBNTLSB1932-81-99 17:20:003.7[facility] WauttgrQTLWAOTIHB7416-78-46 17:20:000.4 [facility] LjyzrveDXJFHCZTUU4944-18-38 17:20:000.9[facility] HermannHEMATOLOGY 2011-08-21 17:20:007.6[facility] XlhgvtbZQQKYIAYLH1817-05-15 17:20:0018.7[facility] MocykkoDPYCWMWPSJ2605-06-71 17:20:0067.5[facility] FuiwzihARQXGQXPG7823-62-26 02:55:00* Test Item Value Reference Range Interpretation Comments CK MB Index (test code = CK MB Index) 0.7 1 <=2.5 N [facility] XzsgzpeKUMKGVBLD9165-24-11 02:55:000.6[facility] HermannCHEMISTRY 2011-05-23 02:55:0090.0[facility] KxvujedGRNAVVUAK6886-14-19 02:55:00<0.02[facility] VuqkwpxBZKKNLFHS7699-99-29 02:55:0088.0[facility] PkcgyvvHZQLAMMXD0469-83-97 02:55:00* Test Item Value Reference Range Interpretation Comments A/G Ratio (test code = A/G Ratio) 1.0 1 0.7-1.6 N [facility] YajgnngOCFQRUTLE9745-56-63 02:55:0025.0[facility] HermannCHEMISTRY 2011-05-23 02:55:000.4[facility] IdkfzgdOOSVNQQFR3141-52-63 02:55:008.9[facility] JgmzsclPJDZDRIZG2780-64-34 02:55:00* Test Item Value Reference Range Interpretation Comments B/C Ratio (test code = B/C Ratio) 18.0 1 6-25 N [facility] SwgqnqhHVRNUAFPH2103-49-10 02:55:004.2[facility] HermannCHEMISTRY 2011-05-23 02:55:27983.0[facility] UqktpbySFHTNKVVV1457-31-89 02:55:0011.0[facility] FgrgsecGRJWKOXJH0122-28-36 02:55:000.6[facility] GksnptuIVFXGMXLE8127-46-35 02:55:81812.0[facility] IqhrzvqMMSAINQPR3495-58-94 02:55:0032.0[facility] BVULPBCAA5310-89-08 02:55:21857.0[facility] UljxbvoUZVAKDXTY3047-05-00 02:55:003.9 [facility] VutxvmcZRONWSHZT1862-32-21 02:55:009.3[facility] HermannCHEMISTRY 2011-05-23 02:55:008.5[facility] JnihhjlGUEYOZTVO9115-54-09 02:55:0075.0[facility] UxkcrydLJUZWJESX5239-89-74 02:55:004.3[facility] ZdwlgjfCUUIURAOV3478-74-77 02:55:0031.0[facility] IvbptpqTJKLEPLWYY5372-21-20 02:55:000.5[facility] [place] NVKEUZRLSS5248-54-01 02:55:000.3[facility] IgeoynwEQFMEXUBGC7627-21-11 02:55:001.7 [facility] NinbcciWNTBCAGVFC5577-32-30 02:55:004.3[facility] HermannHEMATOLOGY 2011-05-23 02:55:004.4[facility] ModgjeyGMDTEJXWSC0564-67-63 02:55:000.9[facility] DrzkqaaAYLMGQCXNF3399-55-60 02:55:006.8[facility] BpoeewyVABFELPUCE4988-94-89 02:55:0024.8[facility] IbrauuvKMNHZZKQAQ1200-06-91 02:55:0063.2[facility] OCKFKBROGZ4642-31-93 02:55:000.1[facility] OggvbziISSNLAHSON3721-82-82 02:55:009.4 [facility] LiglyhsMBZAIHHTWT9537-05-21 02:55:49218.0[facility]annHEMATOLOGY 2011-05-23 02:55:0013.2[facility] LbjijpfKHDTNWFEOD7360-18-80 02:55:00* Test Item Value Reference Range Interpretation Comments MCH (test code = MCH) 32.1 pg 27.0-31.0 H [facility] FvqbrlzZKHCZMUUPW6162-49-97 02:55:0034.5[facility] HermannHEMATOLOGY 2011-05-23 02:55:0092.9[facility] OswpedfQAKFXPUIXH9320-07-78 02:55:0013.3[facility] RbdkxzrTCJAQVVRQJ3501-34-25 02:55:0038.4[facility] QpsbcljLCCHABCSZT6739-45-50 02:55:004.14[facility] RjzjyduAJGRGQEDOE4521-45-19 02:55:006.9[facility] DBCENYTTHI2532-08-76 01:40:00Negative (05/22/2011 19:40:00) ??[facility] WBVISRCTDI3211-74-83 01:40:00None Seen (05/22/2011 19:40:00) ??[facility] EAONNBVRRU3512-11-60 01:40:00Trace *ABN*(05/22/2011 19:40:00) ??[facility] SCKMNBWDHV2246-52-93 01:40:00None Seen (05/22/2011 19:40:00) ??[facility] HVYCGXGNVP3278-66-47 01:40:003-5 /HPF (05/22/2011 19:40:00) ??[facility] NBKOGWSRSA1905-40-55 01:40:00Negative *NA*(05/22/2011 19:40:00) ??[facility] AxhxgcfLSJDVFFOWR5162-67-93 01:40:00Negative *NA*(05/22/2011 19:40:00) ?? [facility] XyacddyUTDRUCQKMM7022-75-66 01:40:00Negative (05/22/2011 19:40:00) ?? [facility] JikphcnTTFMSNUWBV7844-91-08 01:40:000.2[facility] HermannURINALYSIS 2011-05-23 01:40:00None Seen (05/22/2011 19:40:00) ??[facility]annURINALYSIS 2011-05-23 01:40:00Negative (05/22/2011 19:40:00) ??[facility]annURINALYSIS 2011-05-23 01:40:00* Test Item Value Reference Range Interpretation Comments UA pH (test code = UA pH) 6.0 1 5.0-8.0 N [facility] WlcwwbyORNYVWKUSD4406-86-01 01:40:00Negative (05/22/2011 19:40:00) [facility] 01:40:00Clear (05/22/2011 19:40:00) [facility]qzilzXPLOTALNXY1989-[facility]-22 01:40:00* Test Item Value Reference Range Interpretation Comments UA Spec Grav (test code = UA Spec Grav) 1.01 1 N [facility]CsmrmzwQIMONSQATI3378-39-96 01:40:00Yellow *NA*(05/22/2011 19:40:00) ?? [facility] RENAL RETROPERITONEAL COMP [place] [address] Patient Name: SHARLENE MOORE MR #: [id number] : 1935 Age/Sex: 82/F Req #: [id number] Adm Physician: Ordered by: JILLIAN RINCON MD Report #: [id number] Location: US Room/Bed: Procedure: [id number] US/US RENAL RETROPERITONEAL COMP Exam Date: Exam Time: REPORT STATUS: S igned PROCEDURE: US RETROPERITONEAL ( KIDNEY ). COMPARISON: Patient s [facility], US, US ABDOMEN COMPLETE, 05/24/2016, 10:15. INDICATIO [...]
== END 2020-03-25 22:01 | disposition home or self-care (01) ==
LOC: ER 16:27
DX: R10.32 Left lower quadrant pain (principal); K57.90 Diverticulosis of intestine, part unspecified, without perforation or abscess without bleeding; I10 Essential (primary) hypertension; E11.9 Type 2 diabetes mellitus without complications; E78.5 Hyperlipidemia, unspecified; F41.9 Anxiety disorder, unspecified
CPT/HCPCS: 36415; 74018; 74177; 80053; 81001; 82150; 83690; 85025; 99284; J2270; J2405; Q9967

== ENCOUNTER 2020-04-15 17:22 | Emergency (ER) | payer MEDICARE, OTHER ==
[~2020-04-15] VITALS: Ht 149.9 cm; Wt 52.2 kg
[2020-04-15] MEDS ORDERED: FENTANYL CITRATE/PF 100MCG/2 ML INJ IV NR (17:30)
[2020-04-15] MEDS ORDERED: ONDANSETRON HCL INJ 2MG/ML 2ML 2 MG/ML VIAL IV PRN (17:30)
[2020-04-15 17:54] LABS: BASOPHILS # (AUTO) 0.1 (0.0-0.1); BASOPHILS % 0.8 % (0.0-1.0); EOSINOPHILS % 0.5 % (0.0-6.0); HEMATOCRIT 39.4 % (34.2-44.1); HEMOGLOBIN 12.9 g/dL (12.0-16.0); LYMPHOCYTES # (AUTO) 0.9 (1.0-3.2); LYMPHOCYTES % 12.1 % (18.0-39.1); MEAN CORPUSCULAR HEMOGLOBIN 30.4 pg (28-32); MEAN CORPUSCULAR HGB CONC 32.7 g/dL (31-35); MEAN CORPUSCULAR VOLUME 92.7 fL (81-99); MONOCYTES # (AUTO) 0.5 (0.2-0.8); MONOCYTES % 6.9 % (4.4-11.3); NEUTROPHILS # (AUTO) 6.1 (2.1-6.9); NEUTROPHILS % 79.3 % (38.7-80.0); PLATELET COUNT 254 x10e3/uL (140-360); RED BLOOD COUNT 4.25 x10e6/uL (3.6-5.1); RED CELL DISTRIBUTION WIDTH 13.2 % (11.7-14.4)
[2020-04-15 18:06] LABS: ALANINE AMINOTRANSFERASE 16 IU/L (0-55); ALBUMIN 4.3 g/dL (3.5-5.0); ALBUMIN/GLOBULIN RATIO 1.1 (0.8-2.0); ALKALINE PHOSPHATASE 91 IU/L (40-150); ANION GAP 16.3 mmol/L (8-16); BLOOD UREA NITROGEN 14 mg/dL (7-26); BUN/CREATININE RATIO 18 (6-25); CALCIUM 9.7 mg/dL (8.4-10.2); CARBON DIOXIDE 23 mmol/L (22-29); CHLORIDE 100 mmol/L (98-107); CREATININE, SERUM 0.77 mg/dL (0.57-1.11); EST GLOMERULAR FILTRATION RATE > 60 ML/MIN (60-); GLUCOSE 116 mg/dL (74-118); POTASSIUM 4.3 mmol/L (3.5-5.1); SODIUM 135 mmol/L (136-145)
--- NOTE | 2020-04-15 18:11 | Emergency Department Note ---
History of Present Illnes History of Present Illness Chief Complaint: Abdominal Complaints History of Present Illness This is a 85 year old female preseting to the ER with severe abdominal pain 01/15 that started 2-3 months ago. She was advised by PCP to come to ER and to be evaluated for persistent abdominal pain and elevated BP. She was recently treated for abdominal ulcer and "bladder infection." She also has recurring constipation. . Historian: Patient Arrival Mode: [place] Onset (how long ago): month(s) (3) Location: llq Quality: pain Radiation: Reports non-radiation Severity: severe Onset quality: gradual Duration (how long): month(s) (3) Timing of current episode: constant Progression: waxing and waning Chronicity: chronic Context: Denies recent illness, Denies recent surgery, Denies recent travel Relieving factors: none Exacerbating factors: none Associated symptoms: Reports denies other symptoms Past Medical/Family History Physician Review I have reviewed the patient's past medical and family history. Any updates have been documented here. Past Medical History Recent Fever: No Clinical Suspicion of Infectio: No New/Unexplained Change in Ment: No Past Medical History: Hypertension, Diabetes Other Medical History: stomach ulcer, bladder infections Past Surgical History: Cholecysctectomy, Appendectomy, Hysterectomy Other Surgery: hernia repairs Social History Smoking Cessation: Never Smoker Alcohol Use: None Any Illegal Drug Use: No Physically hurt or threatened: No Family History Family history of heart diseas: No Other Last Tetanus: UNKNOWN Review of Systems Review of Systems Constitutional: Reports no symptoms EENTM: Reports no symptoms Cardiovascular: Reports no symptoms Respiratory: Reports no symptoms Gastrointestinal: Reports as per HPI Genitourinary: Reports no symptoms Musculoskeletal: Reports no symptoms Integumentary: Reports no symptoms Neurological: Reports no symptoms Psychological: Reports no symptoms Endocrine: Reports no symptoms Hematological/Lymphatic: Reports no symptoms Physical Exam Related Data Allergies: Coded Allergies: codeine (Verified Allergy, Intermediate, STOMACH PAIN, 03/25/20) lorazepam (Verified Allergy, Intermediate, 03/25/20) Triage Vital Signs Vital Signs Date Time Temp Pulse Resp B/P (MAP) Pulse Ox O2 Delivery O2 Flow Rate FiO2 04/15/20 17:49 97.5 80 17 174/77 100 Room Air Vital signs reviewed: Yes Physical Exam CONSTITUTIONAL Constitutional: Present well-developed, Present well-nourished; Absent distressed HENT HENT: Present normocephalic, Present atraumatic, Present oropharynx clear/moist, Present nose normal HENT L/R: Present left ext ear normal, Present right ext ear normal EYES Eyes: Reports PERRL, Reports conjunctivae normal NECK Neck: Present ROM normal PULMONARY Pulmonary: Present effort normal, Present breath sounds normal CARDIOVASCULAR Cardiovascular: Present regular rhythm, Present heart sounds normal, Present capillary refill normal, Present normal rate GASTROINTESTINAL Abdominal: Present soft, Present bowel sounds normal, Present tender (llq); Absent guarding, Absent mass, Absent rebound GENITOURINARY Genitourinary: Present exam deferred SKIN Skin: Present warm, Present dry MUSCULOSKELETAL Musculoskeletal: Present ROM normal NEUROLOGICAL Neurological: Present alert, Present oriented x 3, Present no gross motor or sensory deficits PSYCHOLOGICAL Psychological: Present mood/affect normal, Present judgement normal Results Laboratory Result Diagram: 04/15/20 4950 Laboratory Laboratory Tests Test 04/15/20 17:41 White Blood Count 7.68 x10e3/uL (4.8-10.8) Red Blood Count 4.25 x10e6/uL (3.6-5.1) Hemoglobin 12.9 g/dL (12.0-16.0) Hematocrit 39.4 % (34.2-44.1) Mean Corpuscular Volume 92.7 fL (81-99) Mean Corpuscular Hemoglobin 30.4 pg (28-32) Mean Corpuscular Hemoglobin Concent 32.7 g/dL (31-35) Red Cell Distribution Width 13.2 % (11.7-14.4) Platelet Count 254 x10e3/uL (140-360) Neutrophils (%) (Auto) 79.3 % (38.7-80.0) Lymphocytes (%) (Auto) 12.1 % (18.0-39.1) Monocytes (%) (Auto) 6.9 % (4.4-11.3) Eosinophils (%) (Auto) 0.5 % (0.0-6.0) Basophils (%) (Auto) 0.8 % (0.0-1.0) Neutrophils # (Auto) 6.1 (2.1-6.9) Lymphocytes # (Auto) 0.9 (1.0-3.2) Monocytes # (Auto) 0.5 (0.2-0.8) Eosinophils # (Auto) 0.0 (0.0-0.4) Basophils # (Auto) 0.1 (0.0-0.1) Absolute Immature Granulocyte (auto 0.03 x10e3/uL (0-0.1) Sodium Level 135 mmol/L (136-145) Potassium Level 4.3 mmol/L (3.5-5.1) Chloride Level 100 mmol/L (98-107) Carbon Dioxide Level 23 mmol/L (22-29) Anion Gap 16.3 mmol/L (8-16) Blood Urea Nitrogen 14 mg/dL (7-26) Creatinine 0.77 mg/dL (0.57-1.11) Estimat Glomerular Filtration Rate > 60 ML/MIN (60-) BUN/Creatinine Ratio 18 (6-25) Glucose Level 116 mg/dL (74-118) Calcium Level 9.7 mg/dL (8.4-10.2) Total Bilirubin 0.2 mg/dL (0.2-1.2) Aspartate Amino Transf (AST/SGOT) 25 IU/L (5-34) Alanine Aminotransferase (ALT/SGPT) 16 IU/L (0-55) Alkaline Phosphatase 91 IU/L (40-150) Troponin I 0.006 ng/mL (0-0.300) Total Protein 8.1 g/dL (6.5-8.1) Albumin 4.3 g/dL (3.5-5.0) Globulin 3.8 g/dL (2.3-3.5) Albumin/Globulin Ratio 1.1 (0.8-2.0) Amylase Level 47 U/L (25-125) Lipase 14 U/L (8-78) Laboratory Tests Test 04/15/20 17:41 White Blood Count 7.68 x10e3/uL (4.8-10.8) Red Blood Count 4.25 x10e6/uL (3.6-5.1) Hemoglobin 12.9 g/dL (12.0-16.0) Hematocrit 39.4 % (34.2-44.1) Mean Corpuscular Volume 92.7 fL (81-99) Mean Corpuscular Hemoglobin 30.4 pg (28-32) Mean Corpuscular Hemoglobin Concent 32.7 g/dL (31-35) Red Cell Distribution Width 13.2 % (11.7-14.4) Platelet Count 254 x10e3/uL (140-360) Neutrophils (%) (Auto) 79.3 % (38.7-80.0) Lymphocytes (%) (Auto) 12.1 % (18.0-39.1) Monocytes (%) (Auto) 6.9 % (4.4-11.3) Eosinophils (%) (Auto) 0.5 % (0.0-6.0) Basophils (%) (Auto) 0.8 % (0.0-1.0) Neutrophils # (Auto) 6.1 (2.1-6.9) Lymphocytes # (Auto) 0.9 (1.0-3.2) Monocytes # (Auto) 0.5 (0.2-0.8) Eosinophils # (Auto) 0.0 (0.0-0.4) Basophils # (Auto) 0.1 (0.0-0.1) Absolute Immature Granulocyte (auto 0.03 x10e3/uL (0-0.1) Lab results reviewed: Yes Imaging Imaging results reviewed: Yes Impressions Procedure: [id number] CT/CT ABDOMEN/PELVIS W Exam Date: 04/15/20 Exam Time: 1833 REPORT STATUS: Signed EXAM: CT Abdomen and Pelvis WITH contrast INDICATION: Left lower quadrant abdominal pain. COMPARISON: Multiple prior CTs including most recent on 03/25/2020. TECHNIQUE: Abdomen and pelvis were scanned utilizing a multidetector helical scanner from the lung base to the pubic symphysis after administration of IV contrast. Coronal and sagittal reformations were obtained. Routine protocol was performed. Scan was performed when during portal venous phase. IV CONTRAST: 100 mL of Isovue 370 ORAL CONTRAST: None COMPLICATIONS: None RADIATION DOSE: Total DLP: 173.50 mGy*cm Estimated effective dose: (DLP x 0.015 x size factor) mSv CTDIvol has been reviewed. It is below the limits set by the Radiation Protocol Committee (RPC). Dose modulation, iterative reconstruction, and/or weight based adjustment of the mA/kV was utilized to reduce the radiation dose to as low as reasonably achievable. FINDINGS: LINES and TUBES: None. LOWER THORAX: There is bibasilar atelectasis. There is atherosclerotic calcification of the coronary vessels. HEPATOBILIARY: The liver is diffuse hypodense compared to the spleen, consistent with diffuse hepatic diffuse hepatic steatosis. No focal hepatic lesions. No biliary ductal dilation. GALLBLADDER: There are cholecystectomy clips. SPLEEN: No splenomegaly. PANCREAS: No focal masses or ductal dilatation. ADRENALS: No adrenal nodules KIDNEYS/URETERS: Kidneys enhance symmetrically. No hydronephrosis. Small left renal cyst is unchanged. 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 Similarly, there is a duplicated collecting system on the right which fuses into a single ureter around its midpoint. No stones. GI TRACT: No abnormal distention, wall thickening, or evidence of bowel obstruction. There are diverticula within the colon without evidence of diverticulitis. Appendix is normal. PELVIC ORGANS/BLADDER: Unremarkable. LYMPH NODES: No lymphadenopathy. VESSELS: Scattered mild to moderate arterial vascular calcifications. PERITONEUM / RETROPERITONEUM: No free air or fluid. BONES: There are degenerative changes in the spine. SOFT TISSUES: Unremarkable. IMPRESSION: 1. No acute abdominopelvic abdomen was identified. 2. Diverticulosis coli without evidence of active inflammation. 3. Hepatic steatosis. Signed by: Magda De La Rosa MD on 04/15/2020 7:40 PM Dictated By: MAGDA DE LA ROSA MD 39 Transcribed By: JOHN on 04/15/201939 COPY TO: JONATHAN UNDERWOOD MD~ Procedures 12 Lead ECG Interpretation ECG Interpretation : ECG: ECG 1 Geneticist: Interpreted by ED physician Date: Apr 15, 2020 Time: 18:00 Rhythm: sinus rhythm Rate: normal BPM: 87 QRS axis: normal ST segments normal: Yes T waves normal: Yes Other findings: no other findings Clinical Impression: normal ECG Assessment & Plan Medical Decision Making MDM pt with llq pain for several months cbc, cmp, lipase, ua, ct abd/pelvis ordered to eval for pancreatitis, dive rticulitis, constipation, sbo, colitis, uti Assessment & Plan Final Impression: (1) Diverticulosis (2) Abdominal pain Depart Disposition: HOME, SELF-CARE Last Vital Signs Date Time Temp Pulse Resp B/P (MAP) Pulse Ox O2 Delivery O2 Flow Rate FiO2 04/15/20 17:49 97.5 80 17 174/77 100 Room Air Home Meds Reported Medications Cholecalciferol (Vitamin D3) (Vitamin D3) 10 Mcg Capsule, PO DAILY 11/24/19 Lisinopril (PRINIVIL) 20 Mg Tablet, 20 MG PO DAILY, #30 TAB 11/18/19 Linagliptin (TRADJENTA) 5 Mg Tablet, 5 MG PO DAILY 02/10/19 Medications in the ED Ondansetron HCl 4 mg Q4H PRN IV NAUSEA AND VOMITING; Start 04/15/20 at 17:30; Stop 05/15/20 at 17:29 Fentanyl Citrate 50 mcg ONCE IV ; Start 04/15/20 at 17:30; Stop 04/15/20 at 18:15 JOVANI VERONICA MD Apr 15, 2020 18:11
[2020-04-15] MEDS ORDERED: SODIUM CHLORIDE 0.9% 50ML 50 ML ONE (18:31)
[2020-04-15] MEDS ORDERED: IOPAMIDOL 370 MG/ML 200 ML INFUS..BTL INJ ONE (18:31)
--- NOTE | 2020-04-15 19:44 | Diagnostic Imaging Report ---
EXAM: CT Abdomen and Pelvis WITH contrast INDICATION: Left lower quadrant abdominal pain. COMPARISON: Multiple prior CTs including most recent on 03/25/2020. TECHNIQUE: Abdomen and pelvis were scanned utilizing a multidetector helical scanner from the lung base to the pubic symphysis after administration of IV contrast. Coronal and sagittal reformations were obtained. Routine protocol was performed. Scan was performed when during portal venous phase. IV CONTRAST: 100 mL of Isovue 370 ORAL CONTRAST: None COMPLICATIONS: None RADIATION DOSE: Total DLP: 173.50 mGy*cm Estimated effective dose: (DLP x 0.015 x size factor) mSv CTDIvol has been reviewed. It is below the limits set by the Radiation Protocol Committee (RPC). Dose modulation, iterative reconstruction, and/or weight based adjustment of the mA/kV was utilized to reduce the radiation dose to as low as reasonably achievable. FINDINGS: LINES and TUBES: None. LOWER THORAX: There is bibasilar atelectasis. There is atherosclerotic calcification of the coronary vessels. HEPATOBILIARY: The liver is diffuse hypodense compared to the spleen, consistent with diffuse hepatic diffuse hepatic steatosis. No focal hepatic lesions. No biliary ductal dilation. GALLBLADDER: There are cholecystectomy clips. SPLEEN: No splenomegaly. PANCREAS: No focal masses or ductal dilatation. ADRENALS: No adrenal nodules KIDNEYS/URETERS: Kidneys enhance symmetrically. No hydronephrosis. Small left renal cyst is unchanged. 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 Similarly, there is a duplicated collecting system on the right which fuses into a single ureter around its midpoint. No stones. GI TRACT: No abnormal distention, wall thickening, or evidence of bowel obstruction. There are diverticula within the colon without evidence of diverticulitis. Appendix is normal. PELVIC ORGANS/BLADDER: Unremarkable. LYMPH NODES: No lymphadenopathy. VESSELS: Scattered mild to moderate arterial vascular calcifications. PERITONEUM / RETROPERITONEUM: No free air or fluid. BONES: There are degenerative changes in the spine. SOFT TISSUES: Unremarkable. IMPRESSION: 1. No acute abdominopelvic abdomen was identified. 2. Diverticulosis coli without evidence of active inflammation. 3. Hepatic steatosis. Signed by: Jose Carlos Rice MD on 04/15/2020 7:40 PM
--- OUTSIDE RECORDS SUMMARY | 2020-04-15 19:51 | XMS REPORT | Continuity of Care Document ---
Author Author Joseph Micah Sensiotec, SHARLENE Mendoza Organization [facility] Address Unknown Phone Unavailable Care Team Providers Care Credit Review Analyst Name Role Phone [employer] Information [employer] Unavailable Un available Problems Problem Status Onset Date Classification Date Reported Comments Source DX: M25.512-PAIN IN LEFT SHOULDER Active 01/30/2019 [facility] OSTEOPOROSIS Active 03/11/2014 [facility] ROUTINE SCREENING Active 02/01/2012 [facility] ABNORMAL CHEST XRAY Active 08/21/2011 [facility] INCISIONAL HERNIA [id number] Active 07/28/2011 [facility] INCISIONAL HERNIA Active 07/28/2011 [facility] ABD PAIN Active 05/09/2011 [facility] DM - Diabetes mellitus Active Problem 08/29/2011 [facility] GERD - Gastro-esophageal reflux disease Active Problem 08/29/2011 [facility] HTN - Hypertension Active Problem 08/29/2011 [facility] Incisional hernia Active Problem 08/29/2011 [facility] Arthritis (disorder) Active Problem 09/04/2019 [facility] [place] Diabetes mellitus (disorder) A ctive Problem [facility] [place] Gastroesophageal reflux disease (disorder) Active Problem 09/04/2019 [facility] [place] Hypertensive disorder, systemic arterial (disorder) Active Problem 09/04/2019 [facility] [place] Incisional hernia (disorder) A ctive Problem [facility] [place] Arthritis Active Problem 08/29/2011 [facility] INCISIONAL HERNIA Active [facility] Medications Medication Details Route Status Patient Instructions Ordering Provider Order Date Source Restoril 15 mg, 1 cap, Route: PO, Drug form: CAP, Bedtime, PRN Sleep, Start date: 08/26/11 12:04:00, Duration: 30 day, Stop date: 09/25/11 12:03:00 PO No Longer Active Gelber 08/26/2011 [facility] Crestor 20 mg, 2 tab, Route: P O, Drug form: TAB, Bedtime, Start date: 08/25/11 21:00:00, Duration: 30 day, Stop date: 09/23/11 21:00:00 PO No Longer Active Hadad 08/26/2011 [facility] tramadol 50 mg oral tablet 50 mg, 1 tab, Route: PO, Drug form: TAB, Q4H, PRN Pain, Start date: 08/25/11 17:31:00, Duration: 30 day, Stop date: 09/24/11 17:30:00 PO No Longer Active Hadad 08/25/2011 [facility] Tylenol 325 mg, 1 tab, Route: PO, Drug form: TAB, Q4H, PRN Pain, Start date: 08/25/11 17:31:00, Duration: 30 day, Stop date: 09/24/11 17:30:00 PO No Longer Active Hadad 08/25/2011 [facility] Ultracet oral tablet 1 tab, Ro brody: PO, Drug Form: TAB, Q4H, PRN Pain, Start date: 08/25/11 11:05:00, Duration: 30 day, Stop date: 09/24/11 11:04:00 PO No Longer Active Hadad 08/25/2011 [facility] Milk of Magnesia 60 ml, Route: PO, Drug Form: SUSP, ONCE, Start date: 08/25/11 11:04:00, Stop date: 08/25/11 11:04:00 PO No Longer Active Hadad 08/25/2011 [facility] Diovan 80 mg, 1 tab, Route: PO , Drug form: TAB, Daily, Start date: 08/25/11 9:00:00, Duration: 30 day, Stop date: 09/23/11 9:00:00 PO No Longer Active Hadad 08/25 [facility] metFORmin 500 mg oral tablet 5 00 mg, 1 tab, Route: PO, Drug form: TAB, Breakfast, Start date: 08/25/11 8:00:00, Duration: 30 day, Stop date: 09/23/11 8:00:00 PO No Longer Active Hadad 08/25/2011 [facility] acetaminophen-hydrocodone 325 mg-5 mg oral tablet 1 tab, Route: PO, Drug Form: TAB, Q4H, PRN Pain, Start date: 08/24/11 13:06:00, Duration: 30 day, Stop date: 09/23/11 13:05:00 PO No Longer Active Hadad 08/24/2011 [facility] Dilaudid 0.5 mg, 0.25 mL, Rout e: IVP, Drug form: INJ, Q3H, PRN Severe Pain, Start date: 08/24/11 13:06:00, Duration: 30 day, Stop date: 09/23/11 13:05:00 IVP No Longer Active Hadad 08/24/2011 [facility] NovoLog FlexPen 18 unit, 0.18 mL, Route: SUB-Q, Drug form: SOLN, Q6H, PRN Blood Glucose Results, Start date: 08/24/11 13:04:00, Duration: 30 day, Stop date: 09/23/11 13:03:00 SUB-Q No Longer Active Hadad 08/24/2011 [facility] glucagon 1 mg, Route: IM, Drug form: PDR/INJ, PRN, PRN Blood Glucose Results, Start date: 08/24/11 13:04:00, Duration: 30 day, Stop date: 09/23/11 14:03:00 IM No Longer Active Hadad 08/24/2011 [facility] Dextrose 50% in Water IV 50 mL , Route: IVP, PRN, Blood Glucose Results, Start date: 08/24/11 13:04:00, Duration: 30 day, Stop date: 09/23/11 14:03:00 IVP No Longer Active Hadad 08/24/2011 [facility] NovoLog FlexPen 9 unit, 0.09 m L, Route: SUB-Q, Drug form: SOLN, Q6H, PRN Blood Glucose Results, Start date: 08/24/11 13:03:00, Duration: 30 day, Stop date: 09/23/11 13:02:00 SUB-Q No Longer Active Hadad 08/24/2011 [facility] Crestor 20 mg oral tablet 20 m g, 1 tab, Bedtime, Substitution Allowed On Hold 08/24/2011 [facility] metFORmin 500 mg oral tablet 5 00 mg, 1 tab, PO, Daily, Substitution Allowed, with breakfastwith breakfast PO On Hold 08/24/2011 [facility] Unasyn 3 gm, 1 ea, Route: IVPB , ABXQ6H, Start date: 08/23/11 18:00:00, Duration: 24 hr, Stop date: 08/24/11 12:00:00 IVPB No Longer Active Hadad 08/24/2011 [facility] Protonix 40 mg, Route: IVP, Dr ug form: INJ, Before Dinner, Start date: 08/23/11 18:00:00, Duration: 30 day, Stop date: 09/22/11 16:30:00 IVP No Longer Active Hadad 08/24/2011 [facility] No Lovenox No Lovenox, 1, Drug form: MISC, Route: MISC, Continuous, 08/23/11 17:30:00, Duration: 30 day, Stop date: 09/22/11 18:29:00 MISC No Longer Active Hadad 08/23 [facility] Dilaudid 1.5 mg, 0.75 mL, Rout e: IVP, Drug form: INJ, Q3H, PRN Pain, Start date: 08/23/11 17:06:00, Duration: 30 day, Stop date: 09/22/11 17:05:00 IVP No Longer Active Hadad 08/23/2011 [facility] Dextrose 5% with 0.45% NaCl IV 1,000 mL 1,000 mL, Rate: 120 ml/hr, Infuse over: 8.3 hr, Route: IV, Total Volume: 1,000, Start date: 08/23/11 17:04:00, Duration: 30 day, Stop date: 09/22/11 17:03:00 IV No Longer Active Hadad 08/23/2011 [facility] Diovan 80 mg, PO, Daily, Subst itution Allowed PO On Hold 08/23/2011 [facility] lidocaine 1% 0.5 mL, Route: RAINES B-Q, Drug Form: INJ, ONCALL, Start date: 08/23/11 10:00:00, Duration: 1 doses or times SUB-Q No Longer Active Hadad 08/23/2011 [facility] Lactated Ringers Injection IV 1,000 mL 1,000 mL, Rate: 25 ml/hr, Infuse over: 40 hr, Route: IV, Total Volume: 1,000, Start date: 08/23/11 9:44:00, Duration: 30 day, Stop date: 09/22/11 9:43:00 IV No Longer Active Jarred 08/23/2011 [facility] Reglan 10 mg oral tablet 10 mg , 1 tab, PO, QID, PRN, 28 tab, nausea, Substitution Allowed, TAB PO Active Zoe jasmine 05/23/2011 [facility] Pepto-Bismol 262 mg/15 mL oral suspension 262 mg, 15 ml, PO, QID, PRN, 120 ml, for dyspepsia, Substitution Allowed, SUSP PO Active joanne05/23/2011 [facility] Zofran 4 mg, Route: IVP, Drug form: INJ, ONCE, Priority: STAT, Start date: 05/22/11 23:06:00, Stop date: 05/22/11 23:06:00 IVP No Longer Active 05/23/2011 [facility] morphine Sulfate 2 mg, Route: IVP, ONCE, Priority: STAT, Start date: 05/22/11 23:06:00, Stop date: 05/22/11 23:06:00 IVP No Longer Active 05/23/2011 [facility] Sodium Chloride 0.9% (Bolus) IV 500 mL 500 mL, Rate: 1,000 ml/hr, Infuse over: 0.5 hr, Route: IV, Total Volume: 500, Bolus dose, Priority: STAT, Start date: 05/22/11 21:18:00, Duration: 1 doses or times, Stop date: 05/22/11 21:47:00 IV No Longer Active [facility] 05/23/2011 [facility] Saline Flush 0.9% 5 ml, Route: IVP, Drug Form: INJ, PRN, PRN Line Flush, Start date: 05/22/11 21:18:00, Duration: 24 hr, Stop date: 05/23/11 21:17:00 IVP No Longer Active [facility] 05/23/2011 [facility] Allergies, Adverse Reactions, Alerts Substance Category Reaction Severity Reaction type Status Date Reported Comments Source codeine Assertion Drug allergy Active [facility] [place] Immunizations No Data Provided for This Section Results Order Name Results Value Reference Range Date Interpretation Comments Source BEDSIDE GLUCOSE TESTING Comment1 Notify RN/ 08/27/2011 STARLA [facility] BEDSIDE GLUCOSE TESTING Gluc POC Lif scn 108 65 - 110 08/27/2011 Normal <sup>1</sup>Interpretive Data: Upper Reportable Limit: 200 mg/dL. [facility] BEDSIDE GLUCOSE TESTING Gluc POC Lif scn 124 65 - 110 08/27/2011 [place] <sup>2</sup>Interpretive Data: Upper Reportable Limit: 200 mg/dL. [facility] BEDSIDE GLUCOSE TESTING Comment1 Notify LOUISA/ 08/27/2011 NA [facility] BEDSIDE GLUCOSE TESTING Gluc POC Lif scn 117 65 - 110 08/26/2011 [place] <sup>3</sup>Interpretive Data: Upper Reportable Limit: 200 mg/dL. [facility] BEDSIDE GLUCOSE TESTING Comment1 Notify LOUISA/ 08/26/2011 NA [facility] CHEMISTRY AGAP 12.3 10.0 - 20.0 08/25/2011 Normal [facility] CHEMISTRY Creatinine Lvl 0.6 0.5 - 1.4 08/25/2011 Normal [facility] CHEMISTRY Sodium Lvl 142 135 - 145 08/25/2011 Normal [facility] CHEMISTRY Potassium Lvl 4.3 3.5 - 5.1 08/25/2011 Normal [facility] CHEMISTRY Calcium Lvl 7.6 8.5 - 10.5 08/25/2011 LOW [facility] CHEMISTRY CO2 28 24 - 32 08/25/2011 Normal [facility] CHEMISTRY Chloride Lvl 106 95 - 109 08/25/2011 Normal [facility] CHEMISTRY BUN 5 7 - 22 08/25/2011 LOW [facility] CHEMISTRY Glucose Lvl 131 08/25/2011 NA <sup>4</sup>Interpretive Data: Reference Ranges : 0 - 7 days : 41 - 90 mg/dL 7 days - 150 yrs : 70 - 99 mg/dL (fasting), based on the clinical recommendations of the [place] [employer]. [facility] HEMATOLOGY Hgb 10.9 12.0 - 16.0 08/25/2011 LOW [facility] HEMATOLOGY RBC 3.48 4.20 - 5.40 08/25/2011 LOW [facility] HEMATOLOGY WBC 7.1 3.7 - 10.4 08/25/2011 Normal [facility] HEMATOLOGY RDW 13.9 11.5 - 14.5 08/25/2011 Normal [facility] HEMATOLOGY MCHC 33.5 32.0 - 36.0 08/25/2011 Normal [facility] HEMATOLOGY MCH 31.5 27.0 - 31.0 08/25/2011 HI [facility] HEMATOLOGY MCV 94.0 81.0 - 99.0 08/25/2011 Normal [facility] HEMATOLOGY Hct 32.7 36.0 - 48.0 08/25/2011 LOW [facility] HEMATOLOGY MPV 9.3 7.4 - 10.4 08/25/2011 Normal [facility] HEMATOLOGY Platelet 208 133 - 450 08/25/2011 Normal [facility] HEMATOLOGY Atypical Lymphs 0.0 <=0.0 08/25/2011 Normal [facility] HEMATOLOGY RBC Morph Lynnette l (08/25/2011 04:07:00) 08/25/2011 Normal [facility] HEMATOLOGY Plt Morph Lynnette l (08/25/2011 04:07:00) 08/25/2011 Normal [facility] HEMATOLOGY Tot Cell Ct 100 08/25/2011 NA [facility] HEMATOLOGY Monocytes 5.0 2.0 - 12.0 08/25/2011 Normal [facility] HEMATOLOGY Eosinophils 0.0 0.0 - 4.0 08/25/2011 Normal [facility] HEMATOLOGY Basophils 0.0 0.0 - 1.0 08/25/2011 Normal [facility] HEMATOLOGY Lymphocytes 26.0 20.0 - 40.0 08/25/2011 Normal [facility] HEMATOLOGY Segs-Bands # 4.9 1.5 - 8.1 08/25/2011 Normal [facility] HEMATOLOGY Monocytes # 0.4 0.0 - 0.8 08/25/2011 Normal [facility] HEMATOLOGY Bands 0.0 0.0 - 11.0 08/25/2011 Normal [facility] HEMATOLOGY Lymphocytes # 1.8 1.0 - 5.5 08/25/2011 Normal [facility] HEMATOLOGY Segs 69.0 45.0 - 75.0 08/25/2011 Normal [facility] CHEMISTRY AGAP 13.3 10.0 - 20.0 08/24/2011 Normal [facility] CHEMISTRY Glucose Lvl 133 08/24/2011 NA <sup>5</sup>Interpretive Data: Reference Ranges : 0 - 7 days : 41 - 90 mg/dL 7 days - 150 yrs : 70 - 99 mg/dL (fasting), based on the clinical recommendations of the [place] [employer]. [place] CHEMISTRY CO2 26 24 - 32 08/24/2011 Normal [facility] CHEMISTRY Calcium Lvl 7.8 8.5 - 10.5 08/24/2011 LOW [facility] CHEMISTRY Potassium Lvl 4.3 3.5 - 5.1 08/24/2011 Normal [facility] CHEMISTRY Chloride Lvl 106 95 - 109 08/24/2011 Normal [facility] CHEMISTRY BUN 8 7 - 22 08/24/2011 Normal [facility] CHEMISTRY Sodium Lvl 141 135 - 145 08/24/2011 Normal [facility] CHEMISTRY Creatinine Lvl 0.7 0.5 - [...] HEMATOLOGY MCH 32.2 27.0 - 31.0 08/24/2011 [facility] [place] HEMATOLOGY Hct 33.1 36.0 - 48.0 [...] Total 0.3 0.2 - 1.3 08/21/2011 Normal [facility] CHEMISTRY AST 16 0 - 37 08/21/2011 Normal [facility] CHEMISTRY Calcium Lvl 8.4 8.5 - 10.5 08/21/2011 LOW [facility] CHEMISTRY CO2 27 24 - 32 08/21/2011 Normal [facility] CHEMISTRY Potassium Lvl 3.8 3.5 - 5.1 08/21/2011 Normal [facility] CHEMISTRY Chloride Lvl 104 95 - 109 08/21/2011 Normal [facility] CHEMISTRY BUN 13 7 - 22 08/21/2011 Normal [facility] CHEMISTRY Sodium Lvl 141 135 - 145 08/21/2011 Normal [facility] CHEMISTRY Creatinine Lvl 0.6 0.5 - 1.4 08/21/2011 Normal [facility] CHEMISTRY Glucose Lvl 117 08/21/2011 NA <sup>6</sup>Interpretive Data: Reference Ranges : 0 - 7 days : 41 - 90 mg/dL 7 days - 150 yrs : 70 - 99 mg/dL (fasting), based on the clinical recommendations of the [place] [employer]. [facility] CHEMISTRY Globulin 3.7 2.0 - 4.0 08/21/2011 Normal [facility] CHEMISTRY A/G Ratio 1.0 0.7 - 1.6 08/21/2011 Normal [facility] CHEMISTRY B/C Ratio 22 6 - 25 08/21/2011 Normal [facility] CHEMISTRY AGAP 13.8 10.0 - 20.0 08/21/2011 Normal [facility] HEMATOLOGY PTT 30.3 22.9 - 35.8 08/21/2011 Normal <sup>8</sup>Interpretive Data: Heparin T herapeutic Range: 57 - 92 Seconds [facility] HEMATOLOGY PT 11.8 12.0 - 14.7 08/21/2011 LOW [facility] HEMATOLOGY INR 0.86 0.85 - 1.17 08/21/2011 Normal <sup>7</sup>Interpretive Data: RECOMMEND ED RANGES FOR PROTIME INR: 2.0-3.0 for most medical and surgical thromboembolic states. 2.5-3.5 for artificial heart valves and recurrent embolism. INR SHOULD BE USED ONLY FOR PATIENTS ON STABLE ANTICOAGULANT THERAPY. [facility] HEMATOLOGY MPV 9.3 7.4 - 10.4 08/21/2011 Normal [facility] HEMATOLOGY RDW 13.0 11.5 - 14.5 08/21/2011 Normal [facility] HEMATOLOGY Platelet 232 133 - 450 [...] Troponin-I <0.02 0.00 - 0.40 05/23/2011 Normal [facility] CHEMISTRY Lipase Lvl 88.0 73 - 393 05/23/2011 Normal [facility] CHEMISTRY A/G Ratio 1.0 0.7 - 1.6 05/23/2011 Normal [facility] CHEMISTRY AST 25.0 0 - 37 05/23/2011 Normal [facility] CHEMISTRY Bili Total 0.4 0.2 - 1.3 05/23/2011 Normal [facility] CHEMISTRY AGAP 8.9 10.0 - 20.0 05/23/2011 LOW [facility] CHEMISTRY B/C Ratio 18.0 6 - 25 05/23/2011 Normal [facility] CHEMISTRY Globulin 4.2 2.0 - 4.0 05/23/2011 [facility] [place] CHEMISTRY Glucose Lvl 105.0 05/23/2011 NA <sup>1</sup>Interpretive Data: Reference Ranges : 0 - 7 days : 41 - 90 mg/dL 7 days - 150 yrs : 70 - 99 mg/dL (fasting), based on the clinical recommendations of the [place] [employer]. [facility] CHEMISTRY BUN 11.0 7 [...] Total Protein 8.5 6.4 - 8.4 05/23/2011 [facility] CHEMISTRY Alk Phos 75.0 39 - [...] HEMATOLOGY Eosinophils 4.3 0.0 - 4.0 05/23/2011 [facility] HEMATOLOGY Segs-Bands # 4.4 1.5 - 8.1 05/23/2011 Normal [facility] HEMATOLOGY Basophils 0.9 0.0 - 1.0 05/23/2011 Normal [facility] HEMATOLOGY Monocytes 6.8 2.0 - 12.0 05/23/2011 Normal [facility] HEMATOLOGY Lymphocytes 24.8 20.0 - 40.0 05/23/2011 Normal [facility] HEMATOLOGY Segs 63.2 45.0 - 75.0 05/23/2011 Normal [facility] HEMATOLOGY Basophils # 0.1 0.0 - 0.2 05/23/2011 Normal [facility] HEMATOLOGY MPV 9.4 7.4 - 10.4 05/23/2011 Normal [facility] HEMATOLOGY Platelet 270.0 133 - 450 05/23/2011 Normal [facility] HEMATOLOGY RDW 13.2 11.5 - 14.5 05/23/2011 Normal [facility] HEMATOLOGY MCH 32.1 27.0 - 31.0 05/23/2011 [place] [facility] HEMATOLOGY MCHC 34.5 32.0 - 36.0 05/23/2011 Normal [facility] HEMATOLOGY MCV 92.9 81.0 - 99.0 05/23/2011 Normal [facility] HEMATOLOGY Hgb 13.3 12.0 - 16.0 05/23/2011 Normal [facility] HEMATOLOGY Hct 38.4 36.0 - 48.0 05/23/2011 Normal [facility] HEMATOLOGY RBC 4.14 4.20 - 5.40 05/23/2011 LOW [facility] HEMATOLOGY WBC 6.9 3.7 - 10.4 05/23/2011 Normal [facility] URINALYSIS UA Nitrite Negat dayna (05/22/2011 19:40:00) ?? >Nega tive 05/23/2011 Normal [facility] URINALYSIS UA Bacteria None Seen (05/22/2011 19:40:00) ?? >None Seen 05/23/2011 Normal [facility] URINALYSIS UA Leuk Est Trace *ABN* (05/22/2011 19:40:00) ?? >Nega tive 05/23/2011 ABN [facility] URINALYSIS UA Sq Epi None Seen (05/22/2011 19:40:00) ?? >Few 05/23/2011 Normal [facility] URINALYSIS UA WBC 3-5 / HPF (05/22/2011 19:40:00) ?? >None Seen 05/23/2011 Normal [facility] URINALYSIS UA Ketones Negat dayna *NA* (05/22/2011 19:40:00) ?? >Nega tive 05/23/2011 NA [facility] URINALYSIS UA Bili Negat dayna *NA* (05/22/2011 19:40:00) ?? >Nega tive 05/23/2011 NA [facility] URINALYSIS UA Blood Negat dayna (05/22/2011 19:40:00) ?? >Nega tive 05/23/2011 Normal [facility] URINALYSIS UA Urobilinogen 0.2 0.1 - 1.0 05/23/2011 Normal [facility] URINALYSIS UA RBC None Seen (05/22/2011 19:40:00) ?? >0 - 2 05/23/2011 Normal [facility] URINALYSIS UA Glucose Negat dayna (05/22/2011 19:40:00) ?? >Nega tive 05/23/2011 Normal [facility] URINALYSIS UA pH 6.0 5.0 - 8.0 05/23/2011 Normal [facility] URINALYSIS UA Protein Negat dayna (05/22/2011 19:40:00) ?? >Nega tive 05/23/2011 Normal [facility] URINALYSIS UA Turbidity Clear (05/22/2011 19:40:00) ?? >Clear 05/23/2011 Normal [facility] URINALYSIS UA Spec Grav 1.01 <<=1.030 05/23/2011 Normal [facility] URINALYSIS UA Color Yello w *NA* (05/22/2011 19:40:00) ?? >Lipscomb ow 05/23/2011 NA [facility] Pathology Reports No Data Provided for [...] 18 08/27/2011 [facility] Heart Rate 76 08/27/2011 [facility] Temperature Oral (F) 98.3 F 08/27/2011 [facility] Heart Rate 82 08/27/2011 [facility] Respitory Rate 18 08/27/2011 [facility] Systolic (mm Hg) 121 08/27/2011 [facility] Diastolic (mm Hg) 69 08/27/2011 [facility] Systolic (mm Hg) 116 08/27/2011 [facility] Respitory Rate 18 08/27/2011 [facility] Diastolic (mm Hg) 74 08/27/2011 [facility] Temperature Oral (F) 98.0 F 08/27/2011 [facility] Heart Rate 84 08/27/2011 [facility] Height 152.40 cm 08/25/2011 [facility] Weight 63.636 08/25/2011 [facility] Weight 63.636 08/21/2011 [facility] Height 154.94 cm 08/21/2011 [facility] Temperature Oral (F) 98.5 F 05/23/2011 [facility] Respitory Rate 18.0 05/23/2011 [facility] Diastolic (mm Hg) 86.0 05/23/2011 [facility] Heart Rate 78.0 05/23/2011 [facility] Systolic (mm Hg) 147.0 05/23/2011 [facility] Temperature Oral (F) 98.3 F 05/23/2011 [facility] Heart Rate 78.0 05/23/2011 [facility] Respitory Rate 18.0 05/23/2011 [facility] Systolic (mm Hg) 141.0 05/23/2011 [facility] Diastolic (mm Hg) 71.0 05/23/2011 [facility] Systolic (mm Hg) 196.0 05/23/2011 [facility] Respitory Rate 16.0 05/23/2011 [facility] Heart Rate 72.0 05/23/2011 [facility] Diastolic (mm Hg) 70.0 05/23/2011 [facility] Temperature Oral (F) 98.0 F 05/23/2011 [facility] Height 152.4 cm 05/23/2011 [facility] Weight 63.636 05/23/2011 [facility] Encounters Location Location Details Encounter Type Encounter Number Reason For Visit Attending Provider ADM Date DC Date Status Source [facility] Emergency [id number] ELISE OVALLES 05/22/2011 05/23/2011 Discharged [facility] Outpatient [id number] ABNORMAL CHEST XR AY KIMBERLY HADAD 08/22/2011 [facility] Inpatient [id number] INCISIONAL HERNIA [id number] KIMBERLY HADAD 08/23/2011 08/27/2011 Active [facility] Outpatient [id number] Ángel Victorth 02/02/2019 02/03/2019 [facility] [place] [facility] [id number] Ángel [facility] 02/14/2019 02/15/2019 [facility] [place] [facility] [place] [facility] [id number] [facility] 09/01/2019 09/02/2019 [facility] [place] [facility] Outpatient [id number] ROUTINE SCREENING KERON LYON Active [facility] Procedures No Data Provided for This Section Assessment and Plan No Data Provided for This Section Plan of Care No Data Provided for This Section Social History Social History Date Source Social History TypeResponse 09/02/2019 [facility] [place] Social History TypeResponse 02/03/2019 [facility] Family History No Data Provided for This Section Advance Directives No Data Provided for This Section Functional Status No Data Provided for This Section
--- OUTSIDE RECORDS SUMMARY | 2020-04-15 19:52 | XMS REPORT | Continuity of Care Document ---
Author Author [facility] t Organization [facility] Address [address] [place] [address] Phone Unavailable Care Team Providers Care Credit Card Specialist Name Role Phone DO LIGIA WEST DO [...] Policy Number Effective Date Expiration Date Reji chloé [facility] [id number] 2019 00:00:00 [facility] [id number] 2011 00:00 :00 [facility] Cdc Review Covid19 [id number] [facility] [id number] 2017 00:00:00 [facility] Problems Condition Name Condition Details Condition Category Status Onset Date Resolution Date Last Treatment Date Treating Clinician Comments Source DX: M25.512-PAIN IN LEFT SHOULDER DX: M25.512-PAIN IN LEFT SHOULDER Active 01/30/2019 [facility] Active 2019-01-30 00:00:00 2019-02-02 16:34:00 [facility] OSTEOPOROSIS OSTE OPOROSIS Active 03/11/2014 [facility] Active 2014-03-11 00:00:00 2014-04-13 15:26:00 [facility] ROUTINE SCREENING ROUT INE SCREENING Active 02/01/2012 [facility] Active 2012-02-01 00:00:00 2012-03-15 13:58:00 [facility] ABNORMAL CHEST XRAY ABNO RMAL CHEST XRAY Active 08/21/2011 [facility] Active 2011-08-21 00:00:00 2011-08-22 14:12:00 [facility] INCISIONAL HERNIA [id number]/[id number] INCISIONAL HERNIA 553.21/38232 Active 07/28/2011 [facility] Active 07-28 00:00:00 2011-12-25 11:49:00 [facility] INCISIONAL HERNIA INCI SIONAL HERNIA Active 07/28/2011 [facility] Active 2011-07-28 00:00:00 2011-08-11 13:57:00 [facility] ABD PAIN ABD PAIN Active 05/09/2011 [facility] Active 2011-05-09 00:00:00 2011-05-22 22:11:00 [facility] Hypertension Hypertension Problem Active [facility] Hyponatremia Hyponatremia Problem Active [facility] Dizziness Problem Active [facility] Urinary tract infection Problem Active [facility] Abdominal pain Problem Active [facility] Diverticulitis Problem Active [facility] DM - Diabetes mellitus DM - Diabetes mellitus Active Problem 08/29/2011 [facility] Problem Active 2011-08-29 09:01:4 5 [facility] GERD - Gastro-esophageal reflux disease GERD - Gastro- esophageal reflux disease Active Problem 08/29/2011 [facility] Problem A ctive 2011-08-29 09:01:45 Joseph Novoa leona HTN - Hypertension HTN - Hypertension Active Problem 08/29/2011 [facility] Problem Active 2011-08-29 09:01:45 [facility] Incisional hernia Inci sional hernia Active Problem 08/29/2011 [facility] Problem Active 2011-08-29 09:01:45 [facility] Arthritis (disorder) Arth ritis (disorder) Active Problem 09/04/2019 MARTINSasha Yany [facility] Problem Active 2019-09-04 00:02:54 [facility] Diabetes mellitus (disorder) D iabetes mellitus (disorder) Active Problem 09/04/2019 ADDISON [place] [facility] Problem Active 2019-09-04 00:02:54 [facility] Gastroesophageal reflux disease (disorder) Gastroesophageal reflux disease (disorder) Active Problem 09/04/2019 [facility] Problem Active 2019-09-04 00:02:54 [facility] Incisional hernia (disorder) I ncisional hernia (disorder) Active Problem 09/04/2019 ADDISON [place] [facility] Problem Active 2019-09-04 00:02:54 [facility] Arthritis Arth ritis Active Problem 08/29/2011 [facility] Problem Active 2011-08-29 09:01:45 [facility] [place] INCISIONAL HERNIA INCI SIONAL HERNIA Active [facility] Diagnosis Active 2011-12-25 11:49:00 [facility] Allergies, Adverse Reactions, Alerts Allergy Name Allergy Type Status Severity Reaction(s) Onset Date Inacti ve Date Treating Clinician Comments Source Lorazepam Allergy to substance Active Moderate 2020-03-25 00:00:00 [facility] codeine DA Active [place] 2018-06-28 00:00:00 [facility] codeine DA Active [place] 2017-07-17 00:00:00 [facility] codeine codeine Active [facility] Social History Social Habit Start Date Stop Date Quantity Comments Source Sex Assigned At 1935 00:00:00 1935 00:00:00 Female [facility] Medications Ordered Medication Name Filled Medication Name Start Date Stop Da te Current Medication? Ordering Clinician Indication Dosage Frequency Signature (SIG) Comments Components Source Tramadol Hcl (Ultram) 50 Mg TABLET Tramadol Hcl (Ultram) 50 Mg TABLET 2018-08-11 18:07:00 2019-11-18 00:00:00 No 50 Every 6 Hours as needed for Pain [facility] Cephalexin Monohydrate (Keflex) 500 Mg CAPSULE Cephale darcy Monohydrate (Keflex) 500 Mg CAPSULE 2018-08-11 18:06:00 2018-08-29 00:00:00 No 5 00 Every [address] [facility] Restoril 2011-08-26 18:04:00 No Larry Boyer Gelber 15 mg, 1 cap, Route: PO, Drug form: CAP, Bedtime, PRN Sleep, Start date: 08/26/11 12:04:00, Duration: 30 day, Stop date: 09/25/11 12:03:00 Veronica Obrien Crestor 2011-08-26 03:00:00 No Christo R Hadad 20 mg, 2 tab, Route: PO, Drug form: TAB, Bedtime, Start date: 08/25/11 21:00:00, Duration: 30 day, Stop date: 09/23/11 21:00:00 [facility] tramadol 50 mg oral tablet 2011-08-25 23:31:00 No Aniba l R Hadad 50 mg, 1 tab, Route: PO, Drug form: TAB, Q4H, PRN Pain, Start date: 08/25/11 17:31:00, Duration: 30 day, Stop date: 09/24/11 17:30:00 [facility] Tylenol 2011-08-25 23:31:00 No Christo R Hadad 325 mg, 1 tab, Route: PO, Drug form: TAB, Q4H, PRN Pain, Start date: 08/25/11 17:31:00, Duration: 30 day, Stop date: 09/24/11 [facility]:30:[address] [facility] Ultracet oral [facility] 2011-08-25 17:05:00 No Christo R Goode dad 1 tab, Route: PO, Drug Form: TAB, Q4H, PRN Pain, Start date: 08/25/11 11:05:00, Duration: 30 day, Stop date: 09/24/11 11:04:00 [facility] Milk of Magnesia 2011-08-25 17:04:00 No Christo R Hadad 60 ml, Route: PO, Drug Form: SUSP, ONCE, Start date: 08/25/11 11:04:00, Stop date: 08/25/11 11:04:00 [facility] Diovan 2011-08-25 15:00:00 No Christo R Hadad 80 mg, 1 tab, Route: PO, Drug form: TAB, Daily, Start date: 08/25/11 9:00:00, Duration: 30 day, Stop date: 09/23/11 9:00:00 [facility] metFORmin 500 mg oral tablet 2011-08-25 14:00:00 No Ani bal R Hadad 500 mg, 1 tab, Route: PO, Drug form: TAB, Breakfast, Start date: 08/25/11 8:00:00, Duration: 30 day, Stop date: 09/23/11 8:00:00 [facility] acetaminophen-hydrocodone 325 mg-5 mg oral tablet 19:06:00 No Christo R Hadad 1 tab, Route: PO , Drug Form: TAB, Q4H, PRN Pain, Start date: 08/24/11 13:06:00, Duration: 30 day, Stop date: 09/23/11 13:05:00 [facility] Dilaudid 2011-08-24 19:06:00 No Christo R Hadad 0.5 mg, 0.25 mL, Route: IVP, Drug form: INJ, Q3H, PRN Severe Pain, Start date: 08/24/11 13:06:00, Duration: 30 day, Stop date: 09/23/11 13:05:00 [facility] NovoLog FlexPen 2011-08-24 19:04:00 No Christo R Hadad 18 unit, 0.18 mL, Route: SUB-Q, Drug form: SOLN, Q6H, PRN Blood Glucose Results, Start date: 08/24/11 13:04:00, Duration: 30 day, Stop date: 09/23/11 13:03:00 [facility] glucagon 2011-08-24 19:04:00 No Christo R Hadad 1 mg, Route: IM, Drug form: PDR/INJ, PRN, PRN Blood Glucose Results, Start date: 08/24/11 13:04:00, Duration: 30 day, Stop date: 09/23/11 14:03:00 [facility] Dextrose 50% in Water IV 2011-08-24 19:04:00 No Christo R Hadad 50 mL, Route: IVP, PRN, Blood Glucose Results, Start date: 08/24/11 13:04:00, Duration: 30 day, Stop date: 09/23/11 14:03:[address] [facility]oLog FlexPen 2011-08-24 19:03:00 No Christo R Hadad 9 unit, 0.09 mL, Route: SUB-Q, Drug form: SOLN, Q6H, PRN Blood Glucose Results, Start date: 08/24/11 13:03:00, Duration: 30 day, Stop date: 09/23/11 13:02:00 [facility] Crestor 20 mg oral tablet 2011-08-24 17:53:48 Yes 20 mg, 1 tab, Bedtime, Substitution Allowed [facility] metFORmin 500 mg oral tablet 2011-08-24 17:52:53 Yes 500 mg, 1 tab, PO, Daily, Substitution Allowed, with breakfastwith breakfast [facility] Unasyn 2011-08-24 00:00:00 No Christo R Hadad 3 gm, 1 ea, Route: IVPB, ABXQ6H, Start date: 08/23/11 18:00:00, Duration: 24 hr, Stop date: 08/24/11 12:00:00 [facility] Protonix 2011-08-24 00:00:00 No Christo R Hadad 40 mg, Route: IVP, Drug form: INJ, Before Dinner, Start date: 08/23/11 18:00:00, Duration: 30 day, Stop date: 09/22/11 16:30:00 [facility] No Lovenox 2011-08-23 23:30:00 No Christo R Hadad No Lovenox, 1, Drug form: MISC, Route: MISC, Continuous, 08/23/11 17:30:00, Duration: 30 day, Stop date: 09/22/11 18:29:00 [facility] Dilaudid 2011-08-23 23:06:00 No Christo R Hadad 1.5 mg, 0.75 mL, Route: IVP, Drug form: INJ, Q3H, PRN Pain, Start date: 08/23/11 17:06:00, Duration: 30 day, Stop date: 09/22/11 17:05:00 Veronicarashmi sussy Obrien Dextrose 5% with 0.45% NaCl IV 1,000 mL 2011-08-23 23:04:0 0 No Christo R Hadad 1,000 mL, Rate: 120 ml/hr, Infuse over: 8.3 hr, Route: IV, Total Volume: 1,000, Start date: 08/23/11 17:04:00, Duration: 30 day, Stop date: 09/22/11 17:03:00 Joseph Obrien Diovan 2011-08-23 16:32:59 Yes 80 mg, PO, Daily, Substitution Allowed [facility] lidocaine 1% 2011-08-23 16:00:00 No Christo R Hadad 0.5 mL, Route: SUB- Q, Drug Form: INJ, ONCALL, Start date: 08/23/11 10:00:00, Duration: 1 doses or times [facility] Lactated Ringers Injection IV 1,000 mL 2011-08-23 15:44:00 No Salvador Dumont Jarred 1,000 mL, Rate: 25 ml/hr, Infuse over: 40 hr, Route: IV, Total Volume: 1,000, Start date: 08/23/11 9:44:00, Duration: 30 day, Stop date: 09/22/11 9:43:00 [facility] Reglan 10 mg oral tablet 2011-05-23 05:47:07 Yes Samson Kutsen 10 mg, 1 tab, PO, QID, PRN, 28 tab, nausea, Substitution Allowed, TAB [facility] Pepto-Bismol 262 mg/15 mL oral suspension 2011-05-23 05:46 :38 Yes Samson Kutsen 262 mg, 15 ml, P O, QID, PRN, 120 ml, for dyspepsia, Substitution Allowed, SUSP [facility] Zofran 2011-05-23 05:06:00 No Samson Kutsen 4 mg, Route: IVP, Drug form: INJ, ONCE, Priority: STAT, Start date: 05/22/11 23:06:00, Stop date: 05/22/11 23:06:00 [facility] morphine Sulfate 2011-05-23 05:06:00 No Samson Kutsen 2 mg, Route: IVP, ONCE, Priority: STAT, Start date: 05/22/11 23:06:00, Stop date: 05/22/11 23:06:00 [facility] Sodium Chloride 0.9% (Bolus) IV 500 mL 2011-05-23 03:18:00 No Samson Kutsen 500 mL, Rate: 1, 000 ml/hr, Infuse over: 0.5 hr, Route: IV, Total Volume: 500, Bolus dose, Priority: STAT, Start date: 05/22/11 21:18:00, Duration: 1 doses or times, Stop date: 05/22/11 21:47:00 [facility] Saline Flush 0.9% 2011-05-23 03:18:00 No Samson Kutsen 5 ml, Route: IVP, Drug Form: INJ, PRN, PRN Line Flush, Start date: 05/22/11 21:18:00, Duration: 24 hr, Stop date: 05/23/11 21:17:00 [facility] Cholecalciferol (Vitamin D3) (Vitamin D3) 10 Mcg CAPSU LE Cholecalciferol (Vitamin D3) (Vitamin D3) 10 Mcg CAPSULE Yes Daily [facility] Linagliptin (Tradjenta) 5 Mg TABLET Linagliptin (Tradjenta) 5 Mg TABL ET Yes 5 Daily [facility] Lisinopril (Prinivil) 20 Mg TABLET Lisinopril (Prinivil) 20 Mg TABLET Yes 20 Daily [facility] Cyanocobalamin (Vitamin B-12) (B-12) 1,000 Mcg TABLET. ER Cyanocobalamin (Vitamin B-12) (B-12) 1,000 Mcg TABLET.ER 2019-11-18 00:00:00 No 1 Daily [facility] D3 D3 2019-11-18 00:00:00 No 25 [facility] Metoprolol Tartrate Metoprolol Tartrate 2019-11-18 00:00:00 No 25 Twice A Day [facility] Losartan Potassium Losartan Potassium 2019-02-10 00:00:00 No 100 Daily [facility] Metformin Hcl Metformin Hcl 2019-02-10 00:00:00 No 500 Daily [facility] Omeprazole Omeprazole 2019-02-10 00:00:00 No 20 Carmen ly [facility] Promethazine Hcl (Phenergan) 25 Mg/1 Ml AMPUL Prometha zine Hcl (Phenergan) 25 Mg/1 Ml AMPUL 2019-02-10 00:00:00 No 25 As Needed as needed for Nausea [facility] Cefuroxime Axetil (Cefuroxime) 250 Mg TABLET Cefuroxim e Axetil (Cefuroxime) 250 Mg TABLET 2018-08-29 00:00:00 No 250 Every 12 Hours [facility] Losartan Potassium Losartan Potassium 2018-08-29 00:00:00 No 100 Daily [facility] Hydrochlorothiazide Hydrochlorothiazide 2018-07-21 00:00:00 No 12.5 Daily@0600 [facility] Linagliptin (Tradjenta) 5 Mg TABLET Linagliptin (Tradjenta) 5 Mg TABLET 2018-07-21 00:00:00 No 5 Daily [facility] Linzess Linzess 2018-07-21 00:00:00 No 145 Daily [facility] Acetaminophen Acetaminophen 2018-07-19 00:00:00 No 325 Daily as needed for Pain [facility] Tramadol Hcl (Ultram 50MG*) 50 Mg TAB Tramadol Hcl (Ultram 50MG* ) 50 Mg TAB 2018-07-19 00:00:00 No 37.5 As Needed for Pain [facility] Metformin Hcl Metformin Hcl 2018-07-17 00:00:00 No 500 Twice A Day [facility] Omeprazole Omeprazole 2018-07-17 00:00:00 No 1 Carmen ly [facility] Valsartan (Diovan) 80 Mg TAB Valsartan (Diovan) 80 Mg TAB 2018-07-17 00:00:00 No 80 Daily [facility] Vital Signs Vital Name Observation Time Observation Value Comments Source Weight 2020-03-25 16:16:00 129 [lb_av] [facility] BMI (Body Mass Index) 2020-03-25 16:16:00 26.1 kg/m2 [facility] Weight 2019-12-27 19:48:00 129 [lb_av] [facility] BMI (Body Mass Index) 2019-12-27 19:48:00 26.1 kg/m2 [facility] Weight 2019-12-15 07:13:00 129 [lb_av] [facility] BMI (Body Mass Index) 2019-12-15 07:13:00 26.1 kg/m2 [facility] Body Temperature 2019-11-24 12:59:00 97.6 [degF] [facility] Temperature Oral (F) 2011-08-27 18:00:00 98.3 F [facility] Diastolic (mm Hg) 2011-08-27 18:00:00 Mem [facility] [place] Systolic (mm Hg) 2011-08-27 18:00:00 Jacob [facility] [place] Respitory Rate 2011-08-27 18:00:00 [facility] [place] Heart Rate 2011-08-27 18:00:00 [facility] Temperature Oral (F) 2011-08-27 14:00:00 98.3 F [facility] Heart Rate 2011-08-27 14:00:00 [facility] [place] Respitory Rate 2011-08-27 14:00:00 [facility] [place] Systolic (mm Hg) 2011-08-27 14:00:00 Jacob rial [place] Diastolic (mm Hg) 2011-08-27 14:00:00 [facility] [place] Systolic (mm Hg) 2011-08-27 10:00:00 Jacob rial [place] Respitory Rate 2011-08-27 10:00:00 [facility] [place] Diastolic (mm Hg) 2011-08-27 10:00:00 [facility] [place] Temperature Oral (F) 2011-08-27 10:00:00 98.0 F [facility] Heart Rate 2011-08-27 10:00:00 [facility] [place] Height 2011-08-25 01:24:00 152.40 cm [facility] Weight 2011-08-25 01:24:00 [facility] [place] Weight 2011-08-21 17:08:00 [facility] [place] Height 2011-08-21 17:08:00 154.94 cm [facility] Temperature Oral (F) 2011-05-23 06:12:00 98.5 F [facility] [place] Respitory Rate 2011-05-23 06:12:00 Memori [facility] [place] Diastolic (mm Hg) 2011-05-23 06:12:00 [facility] [place] Heart Rate 2011-05-23 06:12:00 [facility] [place] Systolic (mm Hg) 2011-05-23 06:12:00 Jacob [facility] [place] Temperature Oral (F) 2011-05-23 06:02:00 98.3 F [facility] Heart Rate 2011-05-23 06:02:00 [facility] [place] Respitory Rate 2011-05-23 06:02:00 [facility] [place] Systolic (mm Hg) 2011-05-23 06:02:00 Jacob rial [place] Diastolic (mm Hg) 2011-05-23 06:02:00 [facility] [place] Systolic (mm Hg) 2011-05-23 04:27:00 Jacob rial [place] Respitory Rate 2011-05-23 04:27:00 [facility] [place] Heart Rate 2011-05-23 04:27:00 [facility] [place] Diastolic (mm Hg) 2011-05-23 04:27:00 [facility] [place] Temperature Oral (F) 2011-05-23 04:23:00 98.0 F [facility] Height 2011-05-23 01:11:00 152.4 cm [facility] Weight 2011-05-23 01:11:00 [facility] Procedures Procedure Date / Time Performed Performing Clinician [facility] e Computed tomography of abdomen and pelvis with contrast 00:00:00 [facility] Computed tomography of abdomen and pelvis with contrast 00:00:00 [facility] Computed tomography of brain without radiopaque contrast 2019-12 00:00:00 [facility] Computed tomography of chest without contrast 2019-12-27 00:00:0 0 [facility] EMERGENCY DEPT VISIT 2019-12-27 00:00:00 [facility] Computed tomography of brain without radiopaque contrast 2019-12 00:00:00 [facility] EMERGENCY DEPT VISIT 2019-12-15 00:00:00 [facility] EGD BIOPSY SINGLE/MULTIPLE 2019-11-24 00:00:00 Bev REDMOND [facility] Computed tomography of abdomen and pelvis with contrast 2019 00:00:00 ZAINAB CHUNG [facility] X-ray of chest, two views 2019-09-28 00:00:00 ZAINAB CHUNG [facility] Plan of Care Planned Activity Planned Date Details Comments Source Instructions Diverticulitis [facility] Encounters Start Date/Time End Date/Time Encounter Type Admission Type Attendi [facility] Care Department Encounter ID Source 2020-03-25 16:27:00 2020-03-25 22:01:00 Departed Emergency Room 1 JOVANI VERONICA [facility] [id number] [facility] 2020-02-24 16:08:00 2020-02-24 20:36:00 Departed Emergency Room 1 Jonathan Garza [facility] [id number] [facility] 2020-01-27 08:17:00 2020-01-27 08:17:00 Registered Clinic 3 JAY PETERSEN [facility] [id number] [facility] 2019-12-27 19:29:00 2019-12-28 01:09:00 Departed Emergency Room 1 ZAINAB CHUNG [facility] [id number] [facility] 2019-12-15 07:07:00 2019-12-15 09:41:00 Departed Emergency Room 1 CRIS SMITH MD [facility] [id number] [facility] 2019-11-24 08:07:00 2019-11-24 08:07:00 Registered Surgical Day Care [facility] [id number] [facility] 2019-10-31 15:23:00 2019-10-31 19:07:00 Departed Emergency Room 1 DAVIDA VALE [facility] [id number] [facility] 2019-09-28 08:19:00 2019-10-01 12:54:00 Discharged Inpatient 1 HAYLEY PETERSEN [facility] [id number] [facility] 2019-09-01 16:04:00 2019-09-01 23:59:00 Outpatient Jovani Soares [facility] M[facility] [id number] 2019-04-28 14:18:00 2019-04-28 18:43:00 Departed Emergency Room 1 FLORENCE HOOPER [facility] [id number] [facility] 2019-03-21 12:22:00 2019-03-21 12:22:00 Registered Clinic 3 FAVIOLA BAEZ [facility] [id number] [facility] 2019-02-14 08:53:00 2019-02-14 23:59:00 Outpatient Jovani Soares HOIP M[facility] [id number] 2019-02-10 16:23:00 2019-02-10 20:20:00 Departed Emergency Room 1 EMILY ABDULLAHI [facility] [id number] [facility] 2019-02-02 16:24:00 2019-02-02 23:59:00 Outpatient Fariba Soares [facility] [id number] 2019-02-02 16:24:00 2019-02-02 16:24:00 Outpatient MHSE [id number] 2018-08-29 06:34:00 2018-08-29 06:34:00 Registered Surgical Day Care [facility] [id number] [facility] 2018-08-11 14:48:00 2018-08-11 19:37:00 Departed Emergency Room 1 DAVIDA ENAMORADO [facility] [id number] [facility] 2018-08-05 13:08:00 2018-08-05 13:08:00 Registered Clinic 3 LIGIA CERVANTES [facility] [id number] [facility] 2018-07-19 21:32:00 2018-07-21 14:23:00 Discharged Inpatient (obs) 1 STELLA FUNES [facility] [id number] [facility] 2018-07-17 22:57:00 2018-07-18 01:52:00 Departed Emergency Room [facility] [id number] [facility] 2018-07-16 12:30:00 2018-07-16 12:30:00 Registered Clinic 3 LIGIA CERVANTES [facility] [id number] [facility] 2017-11-28 11:45:00 2017-11-28 11:45:00 Registered Clinic 3 RINCONJILLIAN KANG [facility] [id number] [facility] Results Test Description Test Time Test Comments Results Result Comments Source CT ABDOMEN/PELVIS W 2020-04-15 19:18:00 [facility] [address] [place] [address] Patient Name: SHARLENE MOORE MR #: [id number] : 1935 Age/Sex: 85/F Req #: [id number] Adm Physician: Ordered by: Jonathan Garza MD Report #: [id number] Location: ER Room/Bed: Procedure: [id number] CT/CT ABDOMEN/PELVIS W Exam Date: 04/15/20 Exam Time: 1833 REPORT STATUS: Signed EXAM: CT Abdomen and Pelvis WITH contrast INDICATION: Left lower quadrant abdominal pain. COMPARISON: Multiple prior CTs including most recent on 03/25/2020. TECHNIQUE: Abdomen and pelvis were scanned utilizing a multidetector helical scanner from the lung base to the pubic symphysis after administration of IV contrast. Coronal and sagittal reformations were obtained. Routine protocol was performed. Scan was performed when during portal venous phase. IV CONTRAST: 100 mL of Isovue 370 ORAL CONTRAST: None COMPLICATIONS: None RADIATION DOSE: Total DLP: 173.50 mGy*cm Estimated effective dose: (DLP x 0.015 x size factor) mSv CTDIvol has been reviewed. It is below the limits set by the Radiation Protocol Committee (RPC). Dose modulation, iterative reconstruction, and/or weight based adjustment of the mA/kV was utilized to reduce the radiation dose to as low as reasonably achievable. FINDINGS: LINES and TUBES: None. LOWER THORAX: There is bibasilar atelectasis. There is atherosclerotic calcification of the coronary vessels. HEPATOBILIARY: The liver is diffuse hypodense compared to the spleen, consistent with diffuse hepatic diffuse hepatic steatosis. No focal hepatic lesions. No biliary ductal dilation. GALLBLADDER: There are cholecystectomy clips. SPLEEN: No splenomegaly. PANCREAS: No focal masses or ductal dilatation. ADRENALS: No adrenal nodules KIDNEYS/URETERS: Kidneys enhance symmetrically. No hydronephrosis. Small left renal cyst is unchanged. 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 Similarly, there is a duplicated collecting system on the right which fuses into a single ureter around its midpoint. No stones. GI TRACT: No abnormal distention, wall thickening, or evidence of bowel obstruction. There are diverticula within the colon without evidence of diverticulitis. Appendix is normal. PELVIC ORGANS/BLADDER: Unremarkable. LYMPH NODES: No lymphadenopathy. VESSELS: Scattered mild to moderate arterial vascular calcifications. PERITONEUM / RETROPERITONEUM: No free air or fluid. BONES: There are de generative changes in the spine. SOFT TISSUES: Unremarkable. IMPRESSION: 1. No acute abdominopelvic abdomen was identified. 2. Diverticulosis coli without evidence of active inflammation. 3. Hepatic steatosis. Signed by: Jose Carlos De La Rosa MD on 04/15/2020 7:40 PM Dictated By: JOSE CARLOS DE LA ROSA MD 39 Transcribed By: JOHN on 04/15/201939 COPY TO: JONATHAN GARZA MD CT ABDOMEN/PELVIS W 2020-03-25 21:25:00 [place] [address] Patient Name: SHARLENE MOORE MR #: [id number] : 1935 Age/Sex: 85/F Req #: [id number] [facility] Physician: Ordered by: JOVANI VERONICA MD Report #: [id number] Location: ER Room/Bed: Procedure: [id number] CT/CT ABDOMEN/PELVIS W Exam Date: 03/25/20 Exam [...] (test code = 5778-6) YELLOW YELLOW [facility] qwazqbf0048-44-54 19:40:00* Test Item Value Reference Range Interpretation Comments Urine Clarity (test code = 17453-1) SL CLOUDY CLEAR [facility] Urine by Test strip 2020-03-25 19:40:00* Test Item Value Reference Range Interpretation Comments Urine Specific [place] (test code = 5811-5) 1.020 1.010-1.02 5 [facility] ChildrenU[facility] pH measurement by automated test zhyoa9926-60-21 19:40:00* Test Item Value Reference Range Interpretation Comments Urine pH (test code = 75652-9) 7 5-7 [facility] ChildrenUrine leukocyte esterase detection by ofnekyai3514-98-91 19:40:00* Test Item Value Reference Range Interpretation Comments Urine Leukocyte Esterase (test code = 5799-2) MODERATE NEGATIVE [facility] ChildrenUrine nitrite lflqaolch8700-16-93 19:40:00* Test Item Value Reference Range Interpretation Comments Urine Nitrite (test code = 97078-3) NEGATIVE NEGATIVE [facility] ChildrenU[facility] protein measurement by test strip (mass/volume)2020-03-25 19:40:00* Test Item Value Reference Range Interpretation Comments Urine Protein (test code = 5804-0) NEGATIVE NEGATIVE [facility] ChildrenU[facility] glucose ifdweqhyu1241-47-88 19:40:00* Test Item Value Reference Range Interpretation Comments Urine Glucose (UA) (test code = 2349-9) NEGATIVE NEGATIVE [facility] ChildrenUrine ketones detection by automated test xldkw1035-25-79 19:40:00* Test Item Value Reference Range Interpretation Comments Urine Ketones (test code = 10369-8) 1+ NEGATIVE [facility] ChildrenUrine urobilinogen measurement by test strip (mass/volume)2020-03-25 19:40:00* Test Item Value Reference Range Interpretation Comments Urine Urobilinogen (test code = 92989-0) 0.2 0.2-1 [facility] ChildrenU[facility] total bilirubin measurement (mass/volume)2020-03-25 19:40:00* Test Item Value Reference Range Interpretation Comments Urine Bilirubin (test code = 1978-6) NEGATIVE NEGATIVE [facility] ChildrenUrine erythrocytes grjwofcah7904-88-15 19:40:00* Test Item Value Reference Range Interpretation Comments Urine Blood (test code = 27030-2) TRACE NEGATIVE [facility] ChildrenAutomated urine sediment leukocyte count by microscopy (number/high power field)2020-03-25 19:40:00* Test Item Value Reference Range Interpretation Comments Urine WBC (test code = 5821-4) 11-20 0-5 [facility] ChildrenErythrocytes detection in urine sediment by light egzjwwadrv1464-74-00 19:40:00* Test Item Value Reference Range Interpretation Comments Urine RBC (test code = 20169-1) 0-5 0-5 [facility] ChildrenBacteria detection in urine sediment by light feulxxoowe0331-95-05 19:40:00* Test Item Value Reference Range Interpretation Comments Urine Bacteria (test code = 57876-0) FEW NONE [facility] ChildrenEpithelial cells detection in urine sediment by light qxmoockioj6353-93-83 19:40:00* Test Item Value Reference Range Interpretation Comments Urine Epithelial Cells (test code = 31858-4) FEW NONE [facility] ChildrenBlood leukocytes automated count (number/volume)2020-03-25 19:10:00* Test Item Value Reference Range Interpretation Comments White Blood Count (test code = 6690-2) 7.39 4.8-10.8 [facility] ChildrenBlood erythrocytes automated count (number/volume)2020-03-25 19:10:00* Test Item Value Reference Range Interpretation Comments Red Blood Count (test code = 789-8) 4.02 3.6-5.1 [facility] ChildrenBlood hemoglobin measurement (moles/volume)2020-03-25 19:10:00* Test Item Value Reference Range Interpretation Comments Hemoglobin (test code = 95662-8) 12.3 12.0-16.0 [facility] ChildrenAutomated blood hematocrit (volume fraction)2020-03-25 19:10:00* Test Item Value Reference Range Interpretation Comments Hematocrit (test code = 4544-3) 38.3 34.2-44.1 [facility] ChildrenAutomated erythrocyte mean corpuscular wpgmbw1484-19-02 19:10:00* Test Item Value Reference Range Interpretation Comments Mean Corpuscular Volume (test code = 787-2) 95.3 81-99 [facility] ChildrenAutomated erythrocyte mean corpuscular hemoglobin (mass per erythrocyte)2020-03-25 19:10:00* Test Item Value Reference Range Interpretation Comments Mean Corpuscular Hemoglobin (test code = 785-6) 30.6 28-32 [facility] ChildrenAutomated erythrocyte mean corpuscular hemoglobin concentration measurement (mass/volume)2020-03-25 19:10:00* Test Item Value Reference Range Interpretation Comments Mean Corpuscular Hemoglobin Concent (test code = 786-4) 32.1 31-35 [facility] ChildrenRDW FyrIa-Dpy2236-95-17 19:10:00* Test Item Value Reference Range Interpretation Comments Red Cell Distribution Width (test code = 57085-0) 13.4 11.7 -14.4 [facility] ChildrenAutomated blood platelet count (count/volume)2020-03-25 19:10:00* Test Item Value Reference Range Interpretation Comments Platelet Count (test code = 777-3) 225 140-360 [facility] ChildrenAutomated blood segmented neutrophil count as percentage of total foftildukw4059-96-36 19:10:00* Test Item Value Reference Range Interpretation Comments Neutrophils (%) (Auto) (test code = 92214-8) 81.2 38.7-80.0 [facility] ChildrenAutomated blood lymphocyte count as percentage ot total uaczcjorzs3000-08-87 19:10:00* Test Item Value Reference Range Interpretation Comments Lymphocytes (%) (Auto) (test code = 736-9) 10.6 18.0-39.1 [facility] ChildrenAutomated blood monocyte count as percentage of total wnrwpqwrzp3886-87-67 19:10:00* Test Item Value Reference Range Interpretation Comments Monocytes (%) (Auto) (test code = 5905-5) 6.9 4.4-11.3 [facility] ChildrenAutomated blood eosinophil count as percentage of total zetbincpla4755-28-87 19:10:00* Test Item Value Reference Range Interpretation Comments Eosinophils (%) (Auto) (test code = 713-8) 0.3 0.0-6.0 [facility] ChildrenAutomated blood basophil count as percentage of total mujfhlucfc9834-99-24 19:10:00* Test Item Value Reference Range Interpretation Comments Basophils (%) (Auto) (test code = 706-2) 0.7 0.0-1.0 [facility] ChildrenFluoroscopic procedure less than one hour swsztieo9085-19-45 19:10:00* Test Item Value Reference Range Interpretation Comments IM GRANULOCYTES % (test code = IM GRANULOCYTES %) 0.3 0.0- 1.0 [facility] ChildrenAutomated blood neutrophil count 2020-03-25 19:10:00* Test Item Value Reference Range Interpretation Comments Neutrophils # (Auto) (test code = 751-8) 6.0 2.1-6.9 [facility] ChildrenBlood lymphocytes count (number/volume) 2020-03-25 19:10:00* Test Item Value Reference Range Interpretation Comments Lymphocytes # (Auto) (test code = 70683-8) 0.8 1.0-3.2 [facility] ChildrenBlood monocytes automated count (number/volume)2020-03-25 19:10:00* Test Item Value Reference Range Interpretation Comments Monocytes # (Auto) (test code = 742-7) 0.5 0.2-0.8 [facility] ChildrenAutomated blood eosinophil count 2020-03-25 19:10:00* Test Item Value Reference Range Interpretation Comments Eosinophils # (Auto) (test code = 711-2) 0.0 0.0-0.4 [facility] ChildrenAutomated blood basophil count (count/volume)2020-03-25 19:10:00* Test Item Value Reference Range Interpretation Comments Basophils # (Auto) (test code = 704-7) 0.1 0.0-0.1 [facility] ChildrenFluoroscopic procedure less than one hour eakjmyty4851-99-65 19:10:00* Test Item Value Reference Range Interpretation Comments Absolute Immature Granulocyte (auto (lionel t code = Absolute Immature Granulocyte (auto) 0.02 0-0.1 [facility]ererum or plasma sodium measurement (moles/volume)2020-03-25 19:10:00* Test Item Value Reference Range Interpretation Comments Sodium Level (test code = 2951-2) 136 136-145 [facility]ererum or plasma potassium measurement (moles/volume)2020-03-25 19:10:00* Test Item Value Reference Range Interpretation Comments Potassium Level (test code = 2823-3) 3.8 3.5-5.1 [facility]ererum or plasma chloride measurement (moles/volume)2020-03-25 19:10:00* Test Item Value Reference Range Interpretation Comments Chloride Level (test code = 2075-0) 101 98-107 [facility]ererum or plasma carbon dioxide, total measurement (moles/volume)2020-03-25 19:10:00* Test Item Value Reference Range Interpretation Comments Carbon Dioxide Level (test code = 2028-9) 25 22-29 [facility]ererum or plasma anion wkh4903-87-80 19:10:00* Test Item Value Reference Range Interpretation Comments Anion Gap (test code = 48813-0) 13.8 8-16 [facility]ererum or plasma urea nitrogen measurement (mass/volume)2020-03-25 19:10:00* Test Item Value Reference Range Interpretation Comments Blood Urea Nitrogen (test code = 3094-0) 14 7-26 [facility]ererum or plasma creatinine measurement (mass/volume)2020-03-25 19:10:00* Test Item Value Reference Range Interpretation Comments Creatinine (test code = 2160-0) 0.75 0.57-1.11 [facility]ererum or plasma urea nitrogen/creatinine mass vexvp6567-79-47 19:10:00* Test Item Value Reference Range Interpretation Comments BUN/Creatinine Ratio (test code = 3097-3) 19 6-25 [facility] ChildrenEstimated glomerular filtration rate (GFR) ekqmjkazjbtcq0306-64-07 19:10:00* Test Item Value Reference Range Interpretation Comments Estimat Glomerular Filtration Rate (test code = 898661610) > 60 >60 Ranges were taken from the National Kidney Disease Education Program and the [facility] [employer] literature.Reference ranges:60 or greater: Vkkrjg86-55 ( for 3 consecutive months): Chronic kidney disease 15 or less: Kidney failureTexas [facility] Rite Hospital for ChildrenGlucose zvrnajrmbfv7097-13-90 19:10:00* Test Item Value Reference Range Interpretation Comments Glucose Level (test code = JLX5379) 107 74-118 [facility]ererum or plasma calcium measurement (mass/volume)2020-03-25 19:10:00* Test Item Value Reference Range Interpretation Comments Calcium Level (test code = 88456-2) 9.4 8.4-10.2 [facility]ererum or plasma total bilirubin measurement (mass/volume)2020-03-25 19:10:00* Test Item Value Reference Range Interpretation Comments Total Bilirubin (test code = 1975-2) 0.4 0.2-1.2 [facility] ChildrenFluoroscopic procedure less than one hour xxplmyff9048-22-41 19:10:00* Test Item Value Reference Range Interpretation Comments Aspartate Amino Transf (AST/SGOT) (test code = Aspartate Amino Transf (AST/SGOT)) 26 5-34 [facility] Centererum or plasma alanine aminotransferase measurement (enzymatic activity/volume)2020-03-25 19:10:00* Test Item Value Reference Range Interpretation Comments Alanine Aminotransferase (ALT/SGPT) (test code = 1742-6) 23 0-55 [facility]ererum or plasma protein measurement (mass/volume)2020-03-25 19:10:00* Test Item Value Reference Range Interpretation Comments Total Protein (test code = 2885-2) 7.8 6.5-8.1 [facility]ererum or plasma albumin measurement (mass/volume)2020-03-25 19:10:00* Test Item Value Reference Range Interpretation Comments Albumin (test code = 1751-7) 4.5 3.5-5.0 [facility] ChildrenPlasma globulin measurement (mass/volume) 2020-03-25 19:10:00* Test Item Value Reference Range Interpretation Comments Globulin (test code = 30979-4) 3.3 2.3-3.5 [facility]ererum or plasma albumin/globulin mass myife3191-85-25 19:10:00* Test Item Value Reference Range Interpretation Comments Albumin/Globulin Ratio (test code = 1759-0) 1.4 0.8-2.0 [facility]ererum or plasma alkaline phosphatase measurement (enzymatic activity/volume)2020-03-25 19:10:00* Test Item Value Reference Range Interpretation Comments Alkaline Phosphatase (test code = 6768-6) 87 40-150 [facility]ererum or plasma amylase measurement (enzymatic activity/volume)2020-03-25 19:10:00* Test Item Value Reference Range Interpretation Comments Amylase Level (test code = 1798-8) 38 25-125 [facility] Centererum or plasma lipase measurement (enzymatic activity/volume)2020-03-25 19:10:00* Test Item Value Reference Range Interpretation Comments Lipase (test code = 3040-3) 8 8-78 [facility] ChildrenABDOMEN-1VIEW (KUB)2020-03-25 18:06:00 [facility] [address] [address] Patient Name: SHARLENE MOORE MR #: [id number] : 1935 Age/Sex: 85/F Req #: [id number] Adm Physician: Ordered by: DAVIDA VALE DO R eport #: [id number] Location: ER Room /Bed: Procedure: [id number] DX/ABDOMEN-1 VIEW (KUB) Exam Date: 03/25/20 Exam [...] COPY TO: DAVIDA VALE DO CT ABDOMEN/PELVIS [id number] 19:24:00 [place] [address] Patient Name: SHARLENE MOORE MR #: [id number] : 1935 Age/Sex: 85/F Req #: [id number] Adm Physician: Ordered by: Jonathan Garza MD Report #: [id number] Location: [facility]/Bed: Procedure: [id number] CT/CT ABDO MEN/PELVIS W Exam Date: 02/24/20 [...] Troponin I measurement by highly sensitive enzyme bawlhcsgqjo6011-73-13 17:23:00* Test Item Value Reference Range Interpretation Comments Troponin I (test code = 84637-0) 0.009 0-0.300 [facility] ChildrenTransitional cells detection in urine sediment by light petisqyono8674-37-30 16:11:00* Test Item Value Reference Range Interpretation Comments Urine Transitional Epithelial Cells (test code = 8249-5) FEW NONE [facility] ChildrenMucus detection in urine sediment by light avswfenauc7732-38-49 16:11:00* Test Item Value Reference Range Interpretation Comments Urine Mucus (test code = 8247-9) [facility] CenterMALL BOWEL XKBHBJ1037-73-54 13:26:00 [facility] [address] [address] Patient Name: SHARLENE MOORE MR #: [id number] : 1935 Age/Sex: 84/F Req #: [id number] Adm Physician: Ordered by: JAY PETERSEN MD Report #: [id number] Location: DX Room/Bed: Procedure: [id number] DX/SMALL BOWEL SERIES Exam Date: 01/27/20 Exam Time: 08 REPORT STATUS: Signed Small bowel follow -through Comparison: None Clinical History: Back tarry stools. Abdominal pain since . Total Patient Fluoro Time: 2.1 minutes Radiation dose: 10. 0 mGy Kerma-area. Total number of images submitted: 8. Physician General Internal Medicine radiographs were obtained. After oral ingestion of barium overhead x-ray images were obta ined over the abdomen periodically until the barium across the ileocecal valve . Spot compression views of the areas of interest were obtained through photos pot images additionally. Report: Physician General Internal Medicine: Nonobstructive bowel gas pattern . Copious amounts [...] Interpretation Comments Bedside Glucose (test code = 64804-4) 101 70-120 Meter ID: [id number] [facility] HospitalFlu[facility] procedure less than one hour nrgadcdh8559-33-39 11:42:00* Test Item Value Reference Range Interpretation [...] complexity tests.Testing performed by [facility] Path[facility] [address] [place], [place] [phone] Director: Carlos Man M.D.CLIA # [id number] [facility] CHEST CR6636-78-89 23:38:00 [place] [address] Patient Name: SHARLENE MOORE MR #: [id number] : 1935 Age/Sex: 84/F Req #: [id number] Adm Physician: Ordered by: ZAINAB CHUNG DO Report #: [id number] Location: ER Room/Bed: Procedure: [id number] CT/CT CHEST WO Exam Date: 12/27/19 Exam [...] 2342 COPY TO: ZAINAB CHUNG CT BRAIN TE1572-04-44 22:35:00 [facility] [address] [address] Patient Name: SHARLENE MOORE MR #: [id number] : 1935 Age/Sex: 84/F Req #: [id number] Adm Physician: Ordered by: ZAINAB CHUNG DO Report #: [id number] Location: ER Room/Bed: Procedure: [id number] CT/CT BRAIN WO Exam Date: 12/27/19 Exam Time: 2154 REPORT STATUS: Signed CT BRAIN WO HISTORY: W eakness, high blood pressure COMPARISON: Head CT 12/15/2019 [...] Count (test code = 6690-2) 7.05 4.8-10.8 [facility] ChildrenBlood erythrocytes automated count (number/volume)2019-12-27 20:02:00* Test Item Value Reference Range Interpretation Comments Red Blood Count (test code = 789-8) 3.88 3.6-5.1 [facility] ChildrenBlood hemoglobin measurement (moles/volume)2019-12-27 20:02:00* Test Item Value Reference Range Interpretation Comments Hemoglobin (test code = 34398-1) 11.8 12.0-16.0 [facility] ChildrenAutomated blood hematocrit (volume fraction)2019-12-27 20:02:00* Test Item Value Reference Range Interpretation Comments Hematocrit (test code = 4544-3) 36.4 34.2-44.1 [facility] ChildrenAutomated erythrocyte mean corpuscular hwzjwn4923-52-10 20:02:00* Test Item Value Reference Range Interpretation Comments Mean Corpuscular Volume (test code = 787-2) 93.8 81-99 [facility] ChildrenAutomated erythrocyte mean corpuscular hemoglobin (mass per erythrocyte)2019-12-27 20:02:00* Test Item Value Reference Range Interpretation Comments Mean Corpuscular Hemoglobin (test code = 785-6) 30.4 28-32 [facility] ChildrenAutomated erythrocyte mean corpuscular hemoglobin concentration measurement (mass/volume)2019-12-27 20:02:00* Test Item Value Reference Range Interpretation Comments Mean Corpuscular Hemoglobin Concent (test code = 786-4) 32.4 31-35 [facility] for ChildrenRDW ScuEb-Hme3518-03-20 20:02:00* Test Item Value Reference Range Interpretation Comments Red Cell Distribution Width (test code = 96091-8) 13.3 11.7 -14.4 [facility] ChildrenAutomated blood platelet count (count/volume)2019-12-27 20:02:00* Test Item Value Reference Range Interpretation Comments Platelet Count (test code = 777-3) 321 140-360 [facility] ChildrenAutomated blood segmented neutrophil count as percentage of total padotyjezb7022-38-98 20:02:00* Test Item Value Reference Range Interpretation Comments Neutrophils (%) (Auto) (test code = 70618-8) 80.2 38.7-80.0 [facility] ChildrenAutomated blood lymphocyte count as percentage ot total dqjdrzfpcm6054-33-07 20:02:00* Test Item Value Reference Range Interpretation Comments Lymphocytes (%) (Auto) (test code = 736-9) 12.2 18.0-39.1 [facility] ChildrenAutomated blood monocyte count as percentage of total xkwcsbhqzf2339-62-67 20:02:00* Test Item Value Reference Range Interpretation Comments Monocytes (%) (Auto) (test code = 5905-5) 6.1 4.4-11.3 [facility] ChildrenAutomated blood eosinophil count as percentage of total xxdqxsihep0525-68-04 20:02:00* Test Item Value Reference Range Interpretation Comments Eosinophils (%) (Auto) (test code = 713-8) 0.6 0.0-6.0 [facility] ChildrenAutomated blood basophil count as percentage of total kohboesegs4242-69-22 20:02:00* Test Item Value Reference Range Interpretation Comments Basophils (%) (Auto) (test code = 706-2) 0.6 0.0-1.0 [facility] ChildrenFluoroscopic procedure less than one hour qoijxhbv2726-30-97 20:02:00* Test Item Value Reference Range Interpretation Comments IM GRANULOCYTES % (test code = IM GRANULOCYTES %) 0.3 0.0- 1.0 [facility] ChildrenAutomated blood neutrophil count 2019-12-27 20:02:00* Test Item Value Reference Range Interpretation Comments Neutrophils # (Auto) (test code = 751-8) 5.7 2.1-6.9 [facility] ChildrenBlood lymphocytes count (number/volume) 2019-12-27 20:02:00* Test Item Value Reference Range Interpretation Comments Lymphocytes # (Auto) (test code = 55025-3) 0.9 1.0-3.2 [facility] ChildrenBlood monocytes automated count (number/volume)2019-12-27 20:02:00* Test Item Value Reference Range Interpretation Comments Monocytes # (Auto) (test code = 742-7) 0.4 0.2-0.8 [facility] ChildrenAutomated blood eosinophil count 2019-12-27 20:02:00* Test Item Value Reference Range Interpretation Comments Eosinophils # (Auto) (test code = 711-2) 0.0 0.0-0.4 [facility] ChildrenAutomated blood basophil count (count/volume)2019-12-27 20:02:00* Test Item Value Reference Range Interpretation Comments Basophils # (Auto) (test code = 704-7) 0.0 0.0-0.1 [facility] ChildrenFluoroscopic procedure less than one hour opmadhdu6648-35-52 20:02:00* Test Item Value Reference Range Interpretation Comments Absolute Immature Granulocyte (auto (lionel t code = Absolute Immature Granulocyte (auto) 0.02 0-0.1 [facility] ChildrenUrine color umdexondjavxa6185-94-90 20:02:00* Test Item Value Reference Range Interpretation Comments Urine Color (test code = 5778-6) YELLOW YELLOW [facility] ChildrenUrine murughu3043-77-51 20:02:00* Test Item Value Reference Range Interpretation Comments Urine Clarity (test code = 54264-7) CLEAR CLEAR [facility] Centerpecific gravity of Urine by Test strip 2019-12-27 20:02:00* Test Item Value Reference Range Interpretation Comments Urine Specific [place] (test code = 5811-5) 1.010 1.010-1.02 5 [facility] ChildrenUrine pH measurement by automated test ijird4340-86-47 20:02:00* Test Item Value Reference Range Interpretation Comments Urine pH (test code = 21412-4) 6 5-7 [facility] ChildrenUrine leukocyte esterase detection by csenhcbq8563-74-28 20:02:00* Test Item Value Reference Range Interpretation Comments Urine Leukocyte Esterase (test code = 5799-2) SMALL NEGATIVE [facility] ChildrenUrine nitrite artbitkba1918-84-87 20:02:00* Test Item Value Reference Range Interpretation Comments Urine Nitrite (test code = 21129-7) NEGATIVE NEGATIVE [facility] ChildrenUrine protein measurement by test strip (mass/volume)2019-12-27 20:02:00* Test Item Value Reference Range Interpretation Comments Urine Protein (test code = 5804-0) NEGATIVE NEGATIVE [facility] ChildrenUrine glucose uqvotjmsg9546-21-85 20:02:00* Test Item Value Reference Range Interpretation Comments Urine Glucose (UA) (test code = 2349-9) NEGATIVE NEGATIVE [facility] ChildrenUrine ketones detection by automated test huawm3828-04-82 20:02:00* Test Item Value Reference Range Interpretation Comments Urine Ketones (test code = 11292-2) NEGATIVE NEGATIVE [facility] ChildrenUrine urobilinogen measurement by test strip (mass/volume)2019-12-27 20:02:00* Test Item Value Reference Range Interpretation Comments Urine Urobilinogen (test code = 27520-1) 0.2 0.2-1 [facility] ChildrenUrine total bilirubin measurement (mass/volume)2019-12-27 20:02:00* Test Item Value Reference Range Interpretation Comments Urine Bilirubin (test code = 1978-6) NEGATIVE NEGATIVE [facility] ChildrenUrine erythrocytes jihlqerit9006-43-50 20:02:00* Test Item Value Reference Range Interpretation Comments Urine Blood (test code = 01034-2) TRACE NEGATIVE [facility] ChildrenAutomated urine sediment leukocyte count by microscopy (number/high power field)2019-12-27 20:02:00* Test Item Value Reference Range Interpretation Comments Urine WBC (test code = 5821-4) 6-10 0-5 [facility] ChildrenErythrocytes detection in urine sediment by light ztkeexdetj4069-35-50 20:02:00* Test Item Value Reference Range Interpretation Comments Urine RBC (test code = 40415-3) 6-10 0-5 [facility] ChildrenBacteria detection in urine sediment by light zxofvndfot4339-82-61 20:02:00* Test Item Value Reference Range Interpretation Comments Urine Bacteria (test code = 93775-4) RARE NONE [facility] ChildrenEpithelial cells detection in urine sediment by light tbulesatgn2204-02-05 20:02:00* Test Item Value Reference Range Interpretation Comments Urine Epithelial Cells (test code = 24471-5) FEW NONE [facility] sodium [facility] (moles/volume)2019-12-27 20:02:00* Test Item Value Reference Range Interpretation Comments Sodium Level (test code = 2951-2) 134 136-145 [facility] potassium measurement (moles/volume)2019-12-27 20:02:00* Test Item Value Reference Range Interpretation Comments Potassium Level (test code = 2823-3) 4.5 3.5-5.1 [facility] chloride measurement (moles/volume)2019-12-27 20:02:00* Test Item Value Reference Range Interpretation Comments Chloride Level (test code = 2075-0) 103 98-107 [facility] carbon dioxide, total measurement (moles/volume)2019-12-27 20:02:00* Test Item Value Reference Range Interpretation Comments Carbon Dioxide Level (test code = 2028-9) 25 22-29 [facility] anion ozc2290-53-76 20:02:00* Test Item Value Reference Range Interpretation Comments Anion Gap (test code = 49542-8) 10.5 8-16 [facility] urea nitrogen measurement (mass/volume)2019-12-27 20:02:00* Test Item Value Reference Range Interpretation Comments Blood Urea Nitrogen (test code = 3094-0) 14 7-26 [facility] creatinine measurement (mass/volume)2019-12-27 20:02:00* Test Item Value Reference Range Interpretation Comments Creatinine (test code = 2160-0) 0.79 0.57-1.11 [facility] urea nitrogen/creatinine mass jlqyj6367-99-71 20:02:00* Test Item Value Reference Range Interpretation Comments BUN/Creatinine Ratio (test code = 3097-3) 18 6-25 [facility] ChildrenEstimated glomerular filtration rate (GFR) gbkzkqncebvvo1412-37-12 20:02:00* Test Item Value Reference Range Interpretation Comments Estimat Glomerular Filtration Rate (test code = 880445048) > 60 >60 Ranges were taken from the National Kidney Disease Education Program and the [facility] Kidney Foundation literature.Reference ranges:60 or greater: Pfewau81-86 ( for 3 consecutive months): Chronic kidney disease 15 or less: Kidney failureTexas [facility]ite Hospital for ChildrenGlucose xbfqtzakgli2082-43-51 20:02:00* Test Item Value Reference Range Interpretation Comments Glucose Level (test code = NZM5442) 100 74-118 [facility] calcium measurement (mass/volume)2019-12-27 20:02:00* Test Item Value Reference Range Interpretation Comments Calcium Level (test code = 46426-3) 9.7 8.4-10.2 [facility] total bilirubin measurement (mass/volume)2019-12-27 20:02:00* Test Item Value Reference Range Interpretation Comments Total Bilirubin (test code = 1975-2) 0.2 0.2-1.2 [facility] ChildrenFluoroscopic procedure less than one hour kysfomne3979-33-70 20:02:00* Test Item Value Reference Range Interpretation Comments Aspartate Amino Transf (AST/SGOT) (test code = Aspartate Amino Transf (AST/SGOT)) 23 5-34 [facility] plasma alanine aminotransferase measurement (enzymatic activity/volume)2019-12-27 20:02:00* Test Item Value Reference Range Interpretation Comments Alanine Aminotransferase (ALT/SGPT) (test code = 1742-6) 20 0-55 [facility] protein measurement (mass/volume)2019-12-27 20:02:00* Test Item Value Reference Range Interpretation Comments Total Protein (test code = 2885-2) 7.6 6.5-8.1 [facility] albumin measurement (mass/volume)2019-12-27 20:02:00* Test Item Value Reference Range Interpretation Comments Albumin (test code = 1751-7) 3.7 3.5-5.0 [facility] ChildrenPlasma globulin measurement (mass/volume) 2019-12-27 20:02:00* Test Item Value Reference Range Interpretation Comments Globulin (test code = 37309-5) 3.9 2.3-3.5 [facility] albumin/globulin mass dyckq6565-25-04 20:02:00* Test Item Value Reference Range Interpretation Comments Albumin/Globulin Ratio (test code = 1759-0) 0.9 0.8-2.0 [facility] alkaline phosphatase measurement (enzymatic activity/volume)2019-12-27 20:02:00* Test Item Value Reference Range Interpretation Comments Alkaline Phosphatase (test code = 6768-6) 113 40-150 [facility] ChildrenBNP Kmc-zFho0845-70-20 20:02:00* Test Item Value Reference Range Interpretation Comments B-Type Natriuretic Peptide (test code = 73062-2) 27.2 0-100 [facility] or [facility] creatine kinase measurement (enzymatic activity/volume)2019-12-27 20:02:00* Test Item Value Reference Range Interpretation Comments Creatine Kinase (test code = 2157-6) 34 29-168 [facility]ererum or plasma creatine kinase MB measurement (mass/volume)2019-12-27 20:02:00* Test Item Value Reference Range Interpretation Comments Creatine Kinase MB (test code = 25711-5) 0.30 0-5.0 [facility] ChildrenTroponin I measurement by highly sensitive enzyme rltoxagmead5307-65-55 20:02:00* Test Item Value Reference Range Interpretation Comments Troponin I (test code = 18138-8) < 0.001 0-0.300 [facility] ChildrenBNP Qcj-jNqp9474-23-20 20:02:00* Test Item Value Reference Range Interpretation Comments B-Type Natriuretic Peptide (test code = 94372-1) 27.2 0-100 [facility] or [facility] creatine kinase measurement (enzymatic activity/volume)2019-12-27 20:02:00* Test Item Value Reference Range Interpretation Comments Creatine Kinase (test code = 2157-6) 34 29-168 [facility]rum or plasma creatine kinase MB measurement (mass/volume)2019-12-27 20:02:00* Test Item Value Reference Range Interpretation Comments Creatine Kinase MB (test code = 30339-9) 0.30 0-5.0 [facility] ChildrenCT BRAIN [id number] 08:41:00 [facility] [address] [place] [address] Patient Name: SHARLENE MOORE MR #: [id number] : 1935 Age/Sex: 84/F Req #: [id number] Adm Physician: Ordered by: LUIS CLEMENS, CRIS CLEMENS Report #: [id number] Location: [facility]/Bed: Procedure: [id number] CT/CT BRAIN WO Exam Date: 12/15/19 Exam [...] MD 3 Transcribed By: JOHN on 12/15/19843 SHELL MOLD BONDER Y TO: CRIS SMITH CHEST SINGLE (PORTABLE)2019-12-15 08:20:00 [place] [address] Patient Name: SHARLENE MOORE MR #: [id number] : 1935 Age/Sex: 84/F Req #: [id number] Adm Physician: Ordered by: CRIS SMITH MD, MD Report #: [id number] Location: [facility]/Bed: Procedure: [id number] DX/CHEST SI NGLE (PORTABLE) Exam Date: 12/15/19 Exam Time: 0753 REPORT STATUS: Signed EXAM: SADIE ST SINGLE (PORTABLE) DATE: 12/15/2019 7:53 AM [...] Count (test code = 6690-2) 5.87 4.8-10.8 [facility] ChildrenBlood erythrocytes automated count (number/volume)2019-12-15 07:32:00* Test Item Value Reference Range Interpretation Comments Red Blood Count (test code = 789-8) 3.79 3.6-5.1 [facility] ChildrenBlood hemoglobin measurement (moles/volume)2019-12-15 07:32:00* Test Item Value Reference Range Interpretation Comments Hemoglobin (test code = 03975-6) 11.5 12.0-16.0 [facility] ChildrenAutomated blood hematocrit (volume fraction)2019-12-15 07:32:00* Test Item Value Reference Range Interpretation Comments Hematocrit (test code = 4544-3) 35.4 34.2-44.1 [facility] ChildrenAutomated erythrocyte mean corpuscular mblyrq0238-39-53 07:32:00* Test Item Value Reference Range Interpretation Comments Mean Corpuscular Volume (test code = 787-2) 93.4 81-99 [facility] ChildrenAutomated erythrocyte mean corpuscular hemoglobin (mass per erythrocyte)2019-12-15 07:32:00* Test Item Value Reference Range Interpretation Comments Mean Corpuscular Hemoglobin (test code = 785-6) 30.3 28-32 [facility] ChildrenAutomated erythrocyte mean corpuscular hemoglobin concentration measurement (mass/volume)2019-12-15 07:32:00* Test Item Value Reference Range Interpretation Comments Mean Corpuscular Hemoglobin Concent (test code = 786-4) 32.5 31-35 [facility] ChildrenRDW QrtGo-Ezs3275-07-08 07:32:00* Test Item Value Reference Range Interpretation Comments Red Cell Distribution Width (test code = 79958-3) 13.5 11.7 -14.4 [facility] ChildrenAutomated blood platelet count (count/volume)2019-12-15 07:32:00* Test Item Value Reference Range Interpretation Comments Platelet Count (test code = 777-3) 245 140-360 [facility] ChildrenAutomated blood segmented neutrophil count as percentage of total ejfqerdads7150-73-67 07:32:00* Test Item Value Reference Range Interpretation Comments Neutrophils (%) (Auto) (test code = 68585-6) 72.2 38.7-80.0 [facility] ChildrenAutomated blood lymphocyte count as percentage ot total zbpvytowbt2934-48-48 07:32:00* Test Item Value Reference Range Interpretation Comments Lymphocytes (%) (Auto) (test code = 736-9) 15.7 18.0-39.1 [facility] ChildrenAutomated blood monocyte count as percentage of total cflskvykwc5250-52-25 07:32:00* Test Item Value Reference Range Interpretation Comments Monocytes (%) (Auto) (test code = 5905-5) 9.4 4.4-11.3 [facility] ChildrenAutomated blood eosinophil count as percentage of total jlwpqegxue8672-49-31 07:32:00* Test Item Value Reference Range Interpretation Comments Eosinophils (%) (Auto) (test code = 713-8) 1.5 0.0-6.0 [facility] ChildrenAutomated blood basophil count as percentage of total owtvmbyktw3697-96-40 07:32:00* Test Item Value Reference Range Interpretation Comments Basophils (%) (Auto) (test code = 706-2) 0.9 0.0-1.0 [facility] ChildrenFluoroscopic procedure less than one hour wmzpqbjy6088-83-87 07:32:00* Test Item Value Reference Range Interpretation Comments IM GRANULOCYTES % (test code = IM GRANULOCYTES %) 0.3 0.0- 1.0 [facility] ChildrenAutomated blood neutrophil count 2019-12-15 07:32:00* Test Item Value Reference Range Interpretation Comments Neutrophils # (Auto) (test code = 751-8) 4.2 2.1-6.9 [facility] ChildrenBlood lymphocytes count (number/volume) 2019-12-15 07:32:00* Test Item Value Reference Range Interpretation Comments Lymphocytes # (Auto) (test code = 68160-3) 0.9 1.0-3.2 [facility] ChildrenBlood monocytes automated count (number/volume)2019-12-15 07:32:00* Test Item Value Reference Range Interpretation Comments Monocytes # (Auto) (test code = 742-7) 0.6 0.2-0.8 [facility] ChildrenAutomated blood eosinophil count 2019-12-15 07:32:00* Test Item Value Reference Range Interpretation Comments Eosinophils # (Auto) (test code = 711-2) 0.1 0.0-0.4 [facility] ChildrenAutomated blood basophil count (count/volume)2019-12-15 07:32:00* Test Item Value Reference Range Interpretation Comments Basophils # (Auto) (test code = 704-7) 0.1 0.0-0.1 [facility] ChildrenFluoroscopic procedure less than one hour zkbnirpe0658-12-01 07:32:00* Test Item Value Reference Range Interpretation Comments Absolute Immature Granulocyte (auto (lionel t code = Absolute Immature Granulocyte (auto) 0.02 0-0.1 [facility] ChildrenProthrombin time (PT) in platelet poor plasma by coagulation asbcv1194-27-35 07:32:00* Test Item Value Reference Range Interpretation Comments Prothrombin Time (test code = 5902-2) 11.8 11.9-14.5 [facility] ChildrenINR in Platelet poor plasma by Coagulation mkkja6059-10-42 07:32:00* Test Item Value Reference Range Interpretation Comments Prothromb Time International Ratio (test code = 6301-6) 0.82 Oral Anticoagulant Therapy INR Values:1. Low Intensity Therapy 1.5 - 2.02 . Moderate Intensity Therapy 2.0 - 3.03. High Intensity Therapy(1) 2.5 - 3. 54. High Intensity Therapy(2) 3.0 - 4.05. Panic Value INR > 5.0 [facility] ChildrenActivated partial thromboplastin time (aPTT) in platelet poor plasma by coagulation tfzwl2340-80-36 07:32:00* Test Item Value Reference Range Interpretation Comments Activated Partial Thromboplast Time (test code = 84108-8) 29.5 23.8-35.5 [facility] ChildrenUrine color pwpkvnbcsjunm9635-99-09 07:32:00* Test Item Value Reference Range Interpretation Comments Urine Color (test code = 5778-6) YELLOW YELLOW [facility] ChildrenUrine nwtdjep5717-96-43 07:32:00* Test Item Value Reference Range Interpretation Comments Urine Clarity (test code = 15703-9) SL CLOUDY CLEAR [facility] Centerpecific gravity of Urine by Test strip 2019-12-15 07:32:00* Test Item Value Reference Range Interpretation Comments Urine Specific [place] (test code = 5811-5) 1.025 1.010-1.02 5 [facility] ChildrenUrine pH measurement by automated test ydalw8112-67-70 07:32:00* Test Item Value Reference Range Interpretation Comments Urine pH (test code = 91960-9) 6.5 5-7 [facility] ChildrenUrine leukocyte esterase detection by frrqsyuv5288-00-77 07:32:00* Test Item Value Reference Range Interpretation Comments Urine Leukocyte Esterase (test code = 5799-2) MODERATE NEGATIVE [facility] ChildrenUrine nitrite icbmymiol0126-72-92 07:32:00* Test Item Value Reference Range Interpretation Comments Urine Nitrite (test code = 90685-4) NEGATIVE NEGATIVE [facility] ChildrenUrine protein measurement by test strip (mass/volume)2019-12-15 07:32:00* Test Item Value Reference Range Interpretation Comments Urine Protein (test code = 5804-0) NEGATIVE NEGATIVE [facility] ChildrenUrine glucose scefdrzdo0145-91-76 07:32:00* Test Item Value Reference Range Interpretation Comments Urine Glucose (UA) (test code = 2349-9) NEGATIVE NEGATIVE [facility] ChildrenUrine ketones detection by automated test pptzx2316-64-42 07:32:00* Test Item Value Reference Range Interpretation Comments Urine Ketones (test code = 92968-2) NEGATIVE NEGATIVE [facility] ChildrenUrine urobilinogen measurement by test strip (mass/volume)2019-12-15 07:32:00* Test Item Value Reference Range Interpretation Comments Urine Urobilinogen (test code = 94787-2) 0.2 0.2-1 [facility] ChildrenUrine total bilirubin measurement (mass/volume)2019-12-15 07:32:00* Test Item Value Reference Range Interpretation Comments Urine Bilirubin (test code = 1978-6) NEGATIVE NEGATIVE [facility] ChildrenUrine erythrocytes efsfrwdta1696-29-06 07:32:00* Test Item Value Reference Range Interpretation Comments Urine Blood (test code = 18624-8) TRACE NEGATIVE [facility] ChildrenAutomated urine sediment leukocyte count by microscopy (number/high power field)2019-12-15 07:32:00* Test Item Value Reference Range Interpretation Comments Urine WBC (test code = 5821-4) 21-50 0-5 [facility] ChildrenErythrocytes detection in urine sediment by light eslyrqnsoi9486-89-04 07:32:00* Test Item Value Reference Range Interpretation Comments Urine RBC (test code = 37464-8) 0-5 0-5 [facility] ChildrenBacteria detection in urine sediment by light mlcvfechfx8944-59-79 07:32:00* Test Item Value Reference Range Interpretation Comments Urine Bacteria (test code = 04592-0) MODERATE NONE [facility] ChildrenEpithelial cells detection in urine sediment by light cbuakvzzjz9797-82-13 07:32:00* Test Item Value Reference Range Interpretation Comments Urine Epithelial Cells (test code = 73247-1) FEW NONE [facility] ChildrenTransitional cells detection in urine sediment by light oiosozyxur0960-57-04 07:32:00* Test Item Value Reference Range Interpretation Comments Urine Transitional Epithelial Cells (test code = 8249-5) FEW NONE [facility] sodium measurement (moles/volume)2019-12-15 07:32:00* Test Item Value Reference Range Interpretation Comments Sodium Level (test code = 2951-2) 129 136-145 [facility]ererum or plasma potassium measurement (moles/volume)2019-12-15 07:32:00* Test Item Value Reference Range Interpretation Comments Potassium Level (test code = 2823-3) 3.8 3.5-5.1 [facility]ere[facility] or plasma chloride measurement (moles/volume)2019-12-15 07:32:00* Test Item Value Reference Range Interpretation Comments Chloride Level (test code = 2075-0) 97 98-107 [facility]ererum or plasma carbon dioxide, total measurement (moles/volume)2019-12-15 07:32:00* Test Item Value Reference Range Interpretation Comments Carbon Dioxide Level (test code = 2028-9) 21 22-29 [facility] or plasma anion zoz4494-03-79 07:32:00* Test Item Value Reference Range Interpretation Comments Anion Gap (test code = 24109-1) 14.8 8-16 [facility] or [facility] urea nitrogen measurement (mass/volume)2019-12-15 07:32:00* Test Item Value Reference Range Interpretation Comments Blood Urea Nitrogen (test code = 3094-0) 16 7-26 [facility]ere[facility] or plasma creatinine measurement (mass/volume)2019-12-15 07:32:00* Test Item Value Reference Range Interpretation Comments Creatinine (test code = 2160-0) 0.70 0.57-1.11 [facility]ere[facility] or plasma urea nitrogen/creatinine mass gmkkr9007-69-89 07:32:00* Test Item Value Reference Range Interpretation Comments BUN/Creatinine Ratio (test code = 3097-3) 23 6-25 [facility] ChildrenEstimated glomerular filtration rate (GFR) gbcesktwajegm0828-11-20 07:32:00* Test Item Value Reference Range Interpretation Comments Estimat Glomerular Filtration Rate (test code = 985443453) > 60 >60 Ranges were taken from the National Kidney Disease Education Program and the [facility] Foundation literature.Reference ranges:60 or greater: Nfyhzd63-95 ( for 3 consecutive months): Chronic kidney disease 15 or less: Kidney failureTexas [facility] Rite Hospital for ChildrenGlucose abaqeuxjoxn5021-60-43 07:32:00* Test Item Value Reference Range Interpretation Comments Glucose Level (test code = WHF1735) 119 74-118 [facility] calcium measurement (mass/volume)2019-12-15 07:32:00* Test Item Value Reference Range Interpretation Comments Calcium Level (test code = 03194-0) 9.3 8.4-10.2 [facility] or plasma magnesium measurement (mass/volume)2019-12-15 07:32:00* Test Item Value Reference Range Interpretation Comments Magnesium Level (test code = 78652-5) 1.8 1.3-2.1 [facility] or plasma total bilirubin measurement (mass/volume)2019-12-15 07:32:00* Test Item Value Reference Range Interpretation Comments Total Bilirubin (test code = 1975-2) 0.4 0.2-1.2 [facility] ChildrenFluoroscopic procedure less than one hour cdbnoldj1945-61-54 07:32:00* Test Item Value Reference Range Interpretation Comments Aspartate Amino Transf (AST/SGOT) (test code = Aspartate Amino Transf (AST/SGOT)) 20 5-34 [facility]rum or plasma alanine aminotransferase measurement (enzymatic activity/volume)2019-12-15 07:32:00* Test Item Value Reference Range Interpretation Comments Alanine Aminotransferase (ALT/SGPT) (test code = 1742-6) 17 0-55 [facility] or plasma protein measurement (mass/volume)2019-12-15 07:32:00* Test Item Value Reference Range Interpretation Comments Total Protein (test code = 2885-2) 7.1 6.5-8.1 [facility] albumin measurement (mass/volume)2019-12-15 07:32:00* Test Item Value Reference Range Interpretation Comments Albumin (test code = 1751-7) 3.8 3.5-5.0 [facility] ChildrenPlasma globulin measurement (mass/volume) 2019-12-15 07:32:00* Test Item Value Reference Range Interpretation Comments Globulin (test code = 35582-9) 3.3 2.3-3.5 [facility] or plasma albumin/globulin mass rvotk2257-46-28 07:32:00* Test Item Value Reference Range Interpretation Comments Albumin/Globulin Ratio (test code = 1759-0) 1.2 0.8-2.0 [facility] or plasma alkaline phosphatase measurement (enzymatic activity/volume)2019-12-15 07:32:00* Test Item Value Reference Range Interpretation Comments Alkaline Phosphatase (test code = 6768-6) 74 40-150 [facility] ChildrenBNP Rhe-uAal7517-94-08 07:32:00* Test Item Value Reference Range Interpretation Comments B-Type Natriuretic Peptide (test code = 93139-2) 77.6 0-100 [facility] or plasma creatine kinase measurement (enzymatic activity/volume)2019-12-15 07:32:00* Test Item Value Reference Range Interpretation Comments Creatine Kinase (test code = 2157-6) 37 29-168 [facility]ererum or plasma creatine kinase MB measurement (mass/volume)2019-12-15 07:32:00* Test Item Value Reference Range Interpretation Comments Creatine Kinase MB (test code = 80301-8) < 1.00 0-4.3 [facility]ererum or plasma troponin i.cardiac measurement (mass/volume)2019-12-15 07:32:00* Test Item Value Reference Range Interpretation Comments Troponin I (test code = 04891-3) < 0.05 0.0-0.40 [facility]rum or plasma thyrotropin measurement by detection limit <= 0.005 miu/l (units/volume)2019-12-15 07:32:00* Test Item Value Reference Range Interpretation Comments Thyroid Stimulating Hormone (TSH) (test code = 66254-5) 3.462 0.350-4.940 [facility] ChildrenProthrombin time (PT) in platelet poor plasma by coagulation prigt1110-79-69 07:32:00* Test Item Value Reference Range Interpretation Comments Prothrombin Time (test code = 5902-2) 11.8 11.9-14.5 [facility] ChildrenINR in Platelet poor plasma by Coagulation rmtdr2590-57-86 07:32:00* Test Item Value Reference Range Interpretation Comments Prothromb Time International Ratio (test code = 6301-6) 0.82 Oral Anticoagulant Therapy INR Values:1. Low Intensity Therapy 1.5 - 2.02 . Moderate Intensity Therapy 2.0 - 3.03. High Intensity Therapy(1) 2.5 - 3. 54. High Intensity Therapy(2) 3.0 - 4.05. Panic Value INR > 5.0 [facility] ChildrenActivated partial thromboplastin time (aPTT) in platelet poor plasma by coagulation iuvyp9443-96-57 07:32:00* Test Item Value Reference Range Interpretation Comments Activated Partial Thromboplast Time (test code = 71842-2) 29.5 23.8-35.5 [facility] ChildrenTransitional cells detection in urine sediment by light cqlqrkvhjl4615-47-46 07:32:00* Test Item Value Reference Range Interpretation Comments Urine Transitional Epithelial Cells (test code = 8249-5) FEW NONE [facility] magnesium measurement (mass/volume)2019-12-15 07:32:00* Test Item Value Reference Range Interpretation Comments Magnesium Level (test code = 59008-1) 1.8 1.3-2.1 [facility] or plasma thyrotropin measurement by detection limit <= 0.005 miu/l (units/volume)2019-12-15 07:32:00* Test Item Value Reference Range Interpretation Comments Thyroid Stimulating Hormone (TSH) (test code = 62937-6) 3.462 0.350-4.940 [facility] ChildrenProthrombin time (PT) in platelet poor plasma by coagulation ygdzo5889-50-19 07:32:00* Test Item Value Reference Range Interpretation Comments Prothrombin Time (test code = 5902-2) 11.8 11.9-14.5 [facility] ChildrenINR in Platelet poor plasma by Coagulation hgxbf3767-69-94 07:32:00* Test Item Value Reference Range Interpretation Comments Prothromb Time International Ratio (test code = 6301-6) 0.82 Oral Anticoagulant Therapy INR Values:1. Low Intensity Therapy 1.5 - 2.02 . Moderate Intensity Therapy 2.0 - 3.03. High Intensity Therapy(1) 2.5 - 3. 54. High Intensity Therapy(2) 3.0 - 4.05. Panic Value INR > 5.0 [facility] ChildrenActivated partial thromboplastin time (aPTT) in platelet poor plasma by coagulation bgyoc6360-83-63 07:32:00* Test Item Value Reference Range Interpretation Comments Activated Partial Thromboplast Time (test code = 57101-4) 29.5 23.8-35.5 [facility] or plasma magnesium measurement (mass/volume)2019-12-15 07:32:00* Test Item Value Reference Range Interpretation Comments Magnesium Level (test code = 61873-0) 1.8 1.3-2.1 [facility] or plasma thyrotropin measurement by detection limit <= 0.005 miu/l (units/volume)2019-12-15 07:32:00* Test Item Value Reference Range Interpretation Comments Thyroid Stimulating Hormone (TSH) (test code = 93134-8) 3.462 0.350-4.940 [facility] ChildrenCapillary blood glucose measurement by glucometer (mass/volume)2019-11-24 11:43:00* Test Item Value Reference Range Interpretation Comments Bedside Glucose (test code = 39800-9) 94 70-120 Meter ID: [id number] [facility] for ChildrenCapillary blood glucose measurement by glucometer (mass/volume)2019-11-24 11:43:00* Test Item Value Reference Range Interpretation Comments Bedside Glucose (test code = 63751-5) 94 70-120 Meter ID: [id number] Scottish Rite Hospital for ChildrenFluoroscopic procedure less than one hour gmckvxgg2066-79-70 09:32:00* Test Item Value Reference Range Interpretation [...] complexity tests.Testing performed by [facility] [id number] [place] [address] [phone] Director: Carlos Man M.D.CLIA # [id number] [facility] Fluoroscopic procedure less than one hour odnnuasf0957-53-03 09:32:00* Test Item Value Reference Range Interpretation [...] complexity tests.Testing performed by [facility] [id number] [place], [place] [phone] Director: Carlos Man M.D.CLIA # [id number] [facility] ABDOMEN-1VIEW (KUB)2019-10-31 18:34:00 [address] [place] [address] Patient Name: SHARLENE MOORE MR #: [id number] : 1935 Age/Sex: 84/F Req #: [id number] Adm Physician: Ordered by: ZAINAB PATTERSON CERTIFIED PEDIATRIC NURSE PRACTITIONER Report #: [id number] Location: ER Room/Bed: Procedure: [id number] DX /ABDOMEN-1VIEW (KUB) Exam Date: 10/31/19 Exam [...] Amylase Level (test code = 1798-8) 37 [facility] or plasma lipase measurement (enzymatic activity/volume)2019-10-31 17:00:00* Test Item Value Reference Range Interpretation Comments Lipase (test code = 3040-3) [facility] or plasma amylase measurement (enzymatic activity/volume)2019-10-31 17:00:00* Test Item Value Reference Range Interpretation Comments Amylase Level (test code = 1798-8) 37 - [facility]ererum or plasma lipase measurement (enzymatic activity/volume)2019-10-31 17:00:00* Test Item Value Reference Range Interpretation Comments Lipase (test code = 3040-3) [facility] ChildrenBedside Eondegj9300-26-42 14:39:00* Test Item Value Reference Range Interpretation Comments Bedside Glucose (test code = 27817-0) 140 70-120 H Meter ID: [id number] [facility]AB[facility] 2019-09-30 08:03:00 [facility] [address] [address] Patient Name: SHARLENE MOORE MR #: [id number] : 1935 Age/Sex: 84/F Req #: [id number] Adm Physician: HAYLEY PETERSEN MD Ordered by: CAREY LOFTON MD Report #: [id number] Location: MED/SURG Room/Bed: [facility] Procedure: 0324-00 01 DX/ABDOMEN 2 VIEW Exam [...] 08 Transcribed By: Bev RAMIREZ on 09/30/19 08 COPY TO: CAREY LOFTON MD Sodium Wqrrh4334-73-17 05:40:00* Test Item Value Reference Range Interpretation Comments Sodium Level (test code = 2951-2) 138 136-145 [facility] HospitalPotassium Jgpfo5873-07-01 05:40:00* Test Item Value Reference Range Interpretation Comments Potassium Level (test code = 2823-3) 3.6 3.5-5.1 [facility] ChildrenChloride Ridif7677-23-09 05:40:00* Test Item Value Reference Range Interpretation Comments Chloride Level (test code = 2075-0) 109 98-107 H [facility] ChildrenCarbon Dioxide Vwupj3657-13-72 05:40:00* Test Item Value Reference Range Interpretation Comments Carbon Dioxide Level (test code = 2028-9) 19 22-29 L [facility] ChildrenAnion Urb7051-69-53 05:40:00* Test Item Value Reference Range Interpretation Comments Anion Gap (test code = 77804-4) 13.6 8-16 [facility] ChildrenBlood Urea Naskrtuh9385-55-65 05:40:00* Test Item Value Reference Range Interpretation Comments Blood Urea Nitrogen (test code = 3094-0) 12 7-26 [facility] ChildrenCreatinine2020-03-24 05:40:00* Test Item Value Reference Range Interpretation Comments Creatinine (test code = 2160-0) 0.66 0.57-1.11 [facility] ChildrenBUN/Creatinine Vjtfn9832-16-28 05:40:00* Test Item Value Reference Range Interpretation Comments BUN/Creatinine Ratio (test code = 3097-3) 18 6-25 [facility] ChildrenEstimat Glomerular Filtration Rate 2019-09-30 05:40:00* Test Item Value Reference Range Interpretation Comments Estimat Glomerular Filtration Rate (test code = 900379015) > 60 >60 Ranges were taken from the National Kidney Disease Education Program and the [facility] literature.Reference ranges:60 or greater: Xwfbls68-68 ( for 3 consecutive months): Chronic kidney disease 15 or less: Kidney failureTexas Scottish Rite Hospital for ChildrenGlucose Sbjjj1717-52-17 05:40:00* Test Item Value Reference Range Interpretation Comments Glucose Level (test code = KZS8058) 66 74-118 L [facility] ChildrenCalcium Fbzhh9300-81-72 05:40:00* Test Item Value Reference Range Interpretation Comments Calcium Level (test code = 77367-8) 8.1 8.4-10.2 L [facility] ChildrenWhite Blood Tjkni2821-31-17 05:21:00* Test Item Value Reference Range Interpretation Comments White Blood Count (test code = 6690-2) 6.54 4.8-10.8 [facility] for ChildrenRed Blood Sqwwg0078-64-82 05:21:00* Test Item Value Reference Range Interpretation Comments Red Blood Count (test code = 789-8) 3.65 3.6-5.1 [facility] ChildrenHemoglobin2020-03-24 05:21:00* Test Item Value Reference Range Interpretation Comments Hemoglobin (test code = 23795-9) 11.3 12.0-16.0 L [facility] ChildrenHematocrit2020-03-24 05:21:00* Test Item Value Reference Range Interpretation Comments Hematocrit (test code = 4544-3) 34.3 34.2-44.1 [facility] ChildrenMean Corpuscular Khxsve2613-18-30 05:21:00* Test Item Value Reference Range Interpretation Comments Mean Corpuscular Volume (test code = 787-2) 94.0 81-99 [facility] ChildrenMean Corpuscular Ecpxekiiwn9794-34-08 05:21:00* Test Item Value Reference Range Interpretation Comments Mean Corpuscular Hemoglobin (test code = 785-6) 31.0 28-32 [facility] for ChildrenMean Corpuscular Hemoglobin Concent 2019-09-30 05:21:00* Test Item Value Reference Range Interpretation Comments Mean Corpuscular Hemoglobin Concent (test code = 786-4) 32.9 31-35 [facility] for ChildrenRed Cell Distribution Hvhcx9860-30-20 05:21:00* Test Item Value Reference Range Interpretation Comments Red Cell Distribution Width (test code = 68763-0) 13.4 11.7 -14.4 [facility] for ChildrenPlatelet Luyjh0318-21-96 05:21:00* Test Item Value Reference Range Interpretation Comments Platelet Count (test code = 777-3) 234 140-360 [facility] ChildrenNeutrophils (%) (Auto)2019-09-30 05:21:00 * Test Item Value Reference Range Interpretation Comments Neutrophils (%) (Auto) (test code = 12722-2) 67.3 38.7-80.0 [facility] ChildrenLymphocytes (%) (Auto)2019-09-30 05:21:00 * Test Item Value Reference Range Interpretation Comments Lymphocytes (%) (Auto) (test code = 736-9) 19.4 18.0-39.1 [facility] ChildrenMonocytes (%) (Auto)2019-09-30 05:21:00* Test Item Value Reference Range Interpretation Comments Monocytes (%) (Auto) (test code = 5905-5) 10.2 4.4-11.3 [facility] ChildrenEosinophils (%) (Auto)2019-09-30 05:21:00 * Test Item Value Reference Range Interpretation Comments Eosinophils (%) (Auto) (test code = 713-8) 2.0 0.0-6.0 [facility] ChildrenBasophils (%) (Auto)2019-09-30 05:21:00* Test Item Value Reference Range Interpretation Comments Basophils (%) (Auto) (test code = 706-2) 0.6 0.0-1.0 [facility] for ChildrenIM GRANULOCYTES %2019-09-30 05:21:00* Test Item Value Reference Range Interpretation Comments IM GRANULOCYTES % (test code = IM GRANULOCYTES %) 0.5 0.0- 1.0 [facility] ChildrenNeutrophils # (Auto)2019-09-30 05:21:00* Test Item Value Reference Range Interpretation Comments Neutrophils # (Auto) (test code = 751-8) 4.4 2.1-6.9 [facility] ChildrenLymphocytes # (Auto)2019-09-30 05:21:00* Test Item Value Reference Range Interpretation Comments Lymphocytes # (Auto) (test code = 46417-1) 1.3 1.0-3.2 [facility] ChildrenMonocytes # (Auto)2019-09-30 05:21:00* Test Item Value Reference Range Interpretation Comments Monocytes # (Auto) (test code = 742-7) 0.7 0.2-0.8 [facility] ChildrenEosinophils # (Auto)2019-09-30 05:21:00* Test Item Value Reference Range Interpretation Comments Eosinophils # (Auto) (test code = 711-2) 0.1 0.0-0.4 [facility] ChildrenBasophils # (Auto)2019-09-30 05:21:00* Test Item Value Reference Range Interpretation Comments Basophils # (Auto) (test code = 704-7) 0.0 0.0-0.1 [facility] ChildrenAbsolute Immature Granulocyte (auto 2019-09-30 05:21:00* Test Item Value Reference Range Interpretation Comments Absolute Immature Granulocyte (auto (lionel t code = Absolute Immature Granulocyte (auto) 0.03 0-0.1 [facility] ChildrenCreatine Kinase PX9387-75-67 06:37:00* Test Item Value Reference Range Interpretation Comments Creatine Kinase MB (test code = 00974-0) 2.00 0-5.0 [facility] ChildrenTroponin N9854-19-01 06:37:00* Test Item Value Reference Range Interpretation Comments Troponin I (test code = PGV6549) 0.001 0-0.300 [facility] ChildrenCreatine Jvrdco8951-25-68 06:30:00* Test Item Value Reference Range Interpretation Comments Creatine Kinase (test code = 2157-6) 69 29-168 [facility] ChildrenTotal Xcsnfilqw3955-99-48 06:22:00* Test Item Value Reference Range Interpretation Comments Total Bilirubin (test code = 1975-2) 0.5 0.2-1.2 [facility] ChildrenAspartate Amino Transf (AST/SGOT) 2019-09-29 06:22:00* Test Item Value Reference Range Interpretation Comments Aspartate Amino Transf (AST/SGOT) (test code = Aspartate Amino Transf (AST/SGOT)) 22 5-34 [facility] ChildrenAlanine Aminotransferase (ALT/SGPT) 2019-09-29 06:22:00* Test Item Value Reference Range Interpretation Comments Alanine Aminotransferase (ALT/SGPT) (test code = 1742-6) 19 0-55 [facility] ChildrenTotal Knedcrw2173-72-78 06:22:00* Test Item Value Reference Range Interpretation Comments Total Protein (test code = 2885-2) 7.1 6.5-8.1 [facility] ChildrenAlbumin2020-03-23 06:22:00* Test Item Value Reference Range Interpretation Comments Albumin (test code = 1751-7) 3.8 3.5-5.0 [facility] ChildrenGlobulin2020-03-23 06:22:00* Test Item Value Reference Range Interpretation Comments Globulin (test code = 45653-7) 3.3 2.3-3.5 [facility] ChildrenAlbumin/Globulin Umnsa6385-41-85 06:22:00 * Test Item Value Reference Range Interpretation Comments Albumin/Globulin Ratio (test code = 1759-0) 1.2 0.8-2.0 [facility] ChildrenAlkaline Iqtnzojvlsk2444-48-01 06:22:00* Test Item Value Reference Range Interpretation Comments Alkaline Phosphatase (test code = 6768-6) 61 40-150 [facility] ChildrenABDOMEN 2 WKJB8788-18-87 05:44:00 [facility] [address] [address] Patient Name: SHARLENE MOORE MR #: [id number] : 1935 Age/Sex: 84/F Req #: [id number] Adm Physician: HAYLEY PETERSEN MD Ordered by: CAREY LOFTON MD Report #: [id number] Location: MED/SURG Room/Bed: [facility] Procedure: 0323-00 04 DX/ABDOMEN 2 VIEW Exam Date: 09/29/19 Exam Time: 0530 REPORT STATUS: Signed EXAM: ABDOMEN 2 VIEW, DATE: 09/29/2019 INDICATION: Small bowel obstruction. COMPARISON: 09/28/2019. FINDINGS: LINES/TUBES: NG/orogastric tube with d istal tip projected on the gastric body, however, sidehole at the level of the GE junction; recommend advancing 2 to 3 cm. BOWEL PATTERN: Compared to the road mender KUB of the recent CT examination, small [...] TO: CAREY LOFTON MD ABDOMEN-1VIEW (KUB)2019-09-28 10:12:00 [place] [address] Patient Name: SHARLENE MOORE MR #: [id number] : 1935 Age/Sex: 84/F Req #: [id number] Adm Physician: JAZZ CORDOVA MD Ordered by: EMILY ABDULLAHI MD Report #: [id number] Location: MED/SURG Room/Bed: [facility] Procedure: [id number] DX/ ABDOMEN-1VIEW (KUB) Exam Date: 09/28/19 Exam [...] COPY TO: EMILY ABDULLAHI MD CHEST 2 ETULW3233-87-06 07:03:00 [place] [address] Patient Name: SHARLENE MOORE MR #: [id number] : 1935 Age/Sex: 84/F Req #: [id number] Adm Physician: Ordered by: ZAINAB CHUNG DO Report #: [id number] Location: ER Room/Bed: Procedure: [id number] DX/CH EST 2 VIEWS Exam Date: 09/28/19 [...] CHUNG DO CT ABDOMEN/PELVIS W 2019-09-28 06:48:00 [place] [address] Patient Name: SHARLENE MOORE MR #: [id number] : 1935 Age/Sex: 84/F Req #: [id number] Adm Physician: Ordered by: ZAINAB CHUNG DO Report #: [id number] Location: ER Room/Bed: Procedure: [id number] CT/CT ABDOMEN/PELVIS W Exam Date: 09/28/19 Exam [...] 07 COPY TO: ZAINAB CHUNG DO Urine Pluzq0173-78-60 06:39:00* Test Item Value Reference Range Interpretation Comments Urine Color (test code = 5778-6) YELLOW YELLOW [facility] ChildrenUrine Wefrkvu1245-90-84 06:39:00* Test Item Value Reference Range Interpretation Comments Urine Clarity (test code = 45957-1) CLEAR CLEAR [facility] ChildrenUrine Specific Pqyounk3108-32-02 06:39:00 * Test Item Value Reference Range Interpretation Comments Urine Specific [place] (test code = 5811-5) >=1.030 1.010-1.02 5 [facility] ChildrenUrine kV5075-62-96 06:39:00* Test Item Value Reference Range Interpretation Comments Urine pH (test code = 49436-4) 5.5 5-7 [facility] ChildrenUrine Leukocyte Qeuirnmv8736-32-98 06:39:00* Test Item Value Reference Range Interpretation Comments Urine Leukocyte Esterase (test code = 5799-2) SMALL NEGATIVE [facility] ChildrenUrine Qscyvjp7281-02-20 06:39:00* Test Item Value Reference Range Interpretation Comments Urine Nitrite (test code = 56174-4) NEGATIVE NEGATIVE [facility] ChildrenUrine Wkgalrj2120-16-16 06:39:00* Test Item Value Reference Range Interpretation Comments Urine Protein (test code = 5804-0) 1+ NEGATIVE H [facility] ChildrenUrine Glucose (UA)2019-09-28 06:39:00* Test Item Value Reference Range Interpretation Comments Urine Glucose (UA) (test code = 2349-9) NEGATIVE NEGATIVE [facility] Xaponeq4750-83-32 06:39:00* Test Item Value Reference Range Interpretation Comments Urine Ketones (test code = 69395-6) 1+ NEGATIVE H [facility] ChildrenUrine Nknpdyiwonap4677-63-45 06:39:00* Test Item Value Reference Range Interpretation Comments Urine Urobilinogen (test code = 33489-8) 0.2 0.2-1 [facility] ChildrenUrine Qmgxtotaw8314-27-00 06:39:00* Test Item Value Reference Range Interpretation Comments Urine Bilirubin (test code = 1978-6) SMALL NEGATIVE [facility] ChildrenUrine Wivjc8610-21-41 06:39:00* Test Item Value Reference Range Interpretation Comments Urine Blood (test code = 85818-7) TRACE NEGATIVE H [facility] ChildrenUrine LUM2443-81-48 06:39:00* Test Item Value Reference Range Interpretation Comments Urine WBC (test code = 5821-4) 6-10 0-5 H [facility] ChildrenUrine URR4071-29-45 06:39:00* Test Item Value Reference Range Interpretation Comments Urine RBC (test code = 16992-2) 6-10 0-5 H [facility] ChildrenUrine Pdxkxlow9076-32-88 06:39:00* Test Item Value Reference Range Interpretation Comments Urine Bacteria (test code = 03102-4) RARE NONE [facility] ChildrenUrine Epithelial Flemk9778-48-77 06:39:00 * Test Item Value Reference Range Interpretation Comments Urine Epithelial Cells (test code = 80691-5) FEW NONE [facility] ChildrenLipase2020-03-22 05:57:00* Test Item Value Reference Range Interpretation Comments Lipase (test code = 3040-3) 7 8-78 L [facility] ChildrenCT ABDOMEN/PELVIS A4651-43-00 16:36:00 [facility] [address] [address] Patient Name: SHARLENE MOORE MR #: [id number] : 3 Age/Sex: 84/F Req #: [id number] Adm Physician: Ordered by: FLORENCE HOOPER MD Report #: [id number] Location: ER Room/Bed: Procedure: [id number] CT/CT ABDOMEN/PELVIS W Exam Date: 04/28/19 Exam [...] 04/28/191653 COPY TO: FLORENCE HOOPER MD Urine BND0287-36-79 15:20:00* Test Item Value Reference Range Interpretation Comments Urine WBC (test code = 5821-4) 0-5 0-5 [facility] ChildrenUrine ZMB5793-08-27 15:20:00* Test Item Value Reference Range Interpretation Comments Urine RBC (test code = 45904-5) NONE 0-5 [facility] ChildrenUrine Ycavxvqj8728-63-36 15:20:00* Test Item Value Reference Range Interpretation Comments Urine Bacteria (test code = 80873-8) NONE NONE [facility] ChildrenUrine Epithelial Obccf8790-83-06 15:20:00 * Test Item Value Reference Range Interpretation Comments Urine Epithelial Cells (test code = 55043-4) FEW NONE [facility] ChildrenUrine Zdguh5584-93-62 15:10:00* Test Item Value Reference Range Interpretation Comments Urine Color (test code = 5778-6) YELLOW YELLOW [facility] ChildrenUrine Gltrxjv6080-93-92 15:10:00* Test Item Value Reference Range Interpretation Comments Urine Clarity (test code = 37483-2) CLEAR CLEAR [facility] ChildrenUrine Specific Sodjast0063-99-90 15:10:00 * Test Item Value Reference Range Interpretation Comments Urine Specific [place] (test code = 5811-5) 1.010 1.010-1.02 5 [facility] ChildrenUrine dB9031-60-07 15:10:00* Test Item Value Reference Range Interpretation Comments Urine pH (test code = 67507-3) 6 5-7 [facility] ChildrenUrine Leukocyte Zdpzdeuy2619-31-37 15:10:00* Test Item Value Reference Range Interpretation Comments Urine Leukocyte Esterase (test code = 69586-1) SMALL NEGATIV E [facility] ChildrenUrine Vnofqhq4449-99-51 15:10:00* Test Item Value Reference Range Interpretation Comments Urine Nitrite (test code = 15143-1) NEGATIVE NEGATIVE [facility] ChildrenUrine Jzfmcgv3604-41-16 15:10:00* Test Item Value Reference Range Interpretation Comments Urine Protein (test code = 87358-9) NEGATIVE NEGATIVE [facility] ChildrenUrine Glucose (UA)2019-04-28 15:10:00* Test Item Value Reference Range Interpretation Comments Urine Glucose (UA) (test code = 00755-0) NEGATIVE NEGATIVE [facility] ChildrenUrine Qadmyhi4286-65-06 15:10:00* Test Item Value Reference Range Interpretation Comments Urine Ketones (test code = 74338-9) 1+ NEGATIVE H [facility] ChildrenUrine Jmgnmwgusski3835-78-35 15:10:00* Test Item Value Reference Range Interpretation Comments Urine Urobilinogen (test code = 55030-9) 0.2 0.2-1 [facility] ChildrenUrine Dceusvbqo8568-26-41 15:10:00* Test Item Value Reference Range Interpretation Comments Urine Bilirubin (test code = 1977-8) NEGATIVE NEGATIVE [facility] ChildrenUrine Hqolj0962-91-89 15:10:00* Test Item Value Reference Range Interpretation Comments Urine Blood (test code = 77549-2) TRACE NEGATIVE H [facility] Xqtyu9645-06-37 15:09:00* Test Item Value Reference Range Interpretation Comments Sodium Level (test code = 2951-2) 134 136-145 L [facility] ChildrenPotassium Yyrrf3160-90-47 15:09:00* Test Item Value Reference Range Interpretation Comments Potassium Level (test code = 2823-3) 5.0 3.5-5.1 [facility] ChildrenChloride Dnflo0044-18-13 15:09:00* Test Item Value Reference Range Interpretation Comments Chloride Level (test code = 2075-0) 100 98-107 [facility] ChildrenCarbon Dioxide Qelpn4397-37-04 15:09:00* Test Item Value Reference Range Interpretation Comments Carbon Dioxide Level (test code = 2028-9) 20 22-29 L [facility] ChildrenAnion Msd1211-10-48 15:09:00* Test Item Value Reference Range Interpretation Comments Anion Gap (test code = 16237-6) 19.0 8-16 H [facility] ChildrenBlood Urea Pbyspbdk0501-11-64 15:09:00* Test Item Value Reference Range Interpretation Comments Blood Urea Nitrogen (test code = 3094-0) 14 7-26 [facility] ChildrenCreatinine2019-10-21 15:09:00* Test Item Value Reference Range Interpretation Comments Creatinine (test code = 2160-0) 0.82 0.57-1.11 [facility] ChildrenBUN/Creatinine Jsvfp1779-11-43 15:09:00* Test Item Value Reference Range Interpretation Comments BUN/Creatinine Ratio (test code = 3097-3) 17 6-25 [facility] ChildrenEstimat Glomerular Filtration Rate 2019-04-28 15:09:00* Test Item Value Reference Range Interpretation Comments Estimat Glomerular Filtration Rate (test code = 781112602) > 60 >60 Ranges were taken from the National Kidney Disease Education Program and the [facility] literature.Reference ranges:60 or greater: Bukvmu03-92 ( for 3 consecutive months): Chronic kidney disease 15 or less: Kidney failureTexas Scottish Rite Hospital for ChildrenGlucose Vrbgm4038-57-80 15:09:00* Test Item Value Reference Range Interpretation Comments Glucose Level (test code = USY4842) 104 74-118 [facility] ChildrenCalcium Pbnfx8122-93-21 15:09:00* Test Item Value Reference Range Interpretation Comments Calcium Level (test code = 42763-5) 9.9 8.4-10.2 [facility] ChildrenWhite Blood Rvvox5179-46-68 14:49:00* Test Item Value Reference Range Interpretation Comments White Blood Count (test code = 6690-2) 7.98 4.8-10.8 [facility] ChildrenRed Blood Cvlkp5017-75-24 14:49:00* Test Item Value Reference Range Interpretation Comments Red Blood Count (test code = 789-8) 4.25 3.6-5.1 [facility] ChildrenHemoglobin2019-10-21 14:49:00* Test Item Value Reference Range Interpretation Comments Hemoglobin (test code = 85221-0) 13.1 12.0-16.0 [facility] ChildrenHematocrit2019-10-21 14:49:00* Test Item Value Reference Range Interpretation Comments Hematocrit (test code = 4544-3) 39.2 34.2-44.1 [facility] ChildrenMean Corpuscular Wmvbtm9561-30-38 14:49:00* Test Item Value Reference Range Interpretation Comments Mean Corpuscular Volume (test code = 787-2) 92.2 81-99 [facility] ChildrenMean Corpuscular Ubdbsnzvvx7970-86-56 14:49:00* Test Item Value Reference Range Interpretation Comments Mean Corpuscular Hemoglobin (test code = 785-6) 30.8 28-32 [facility] ChildrenMean Corpuscular Hemoglobin Concent 2019-04-28 14:49:00* Test Item Value Reference Range Interpretation Comments Mean Corpuscular Hemoglobin Concent (test code = 786-4) 33.4 31-35 [facility] ChildrenRed Cell Distribution Tpywh1227-99-46 14:49:00* Test Item Value Reference Range Interpretation Comments Red Cell Distribution Width (test code = 13476-3) 12.5 11.7 -14.4 [facility] ChildrenPlatelet Fowxj3203-30-49 14:49:00* Test Item Value Reference Range Interpretation Comments Platelet Count (test code = 777-3) 266 140-360 [facility] ChildrenNeutrophils (%) (Auto)2019-04-28 14:49:00 * Test Item Value Reference Range Interpretation Comments Neutrophils (%) (Auto) (test code = 50421-3) 82.7 38.7-80.0 H [facility] ChildrenLymphocytes (%) (Auto)2019-04-28 14:49:00 * Test Item Value Reference Range Interpretation Comments Lymphocytes (%) (Auto) (test code = 736-9) 10.5 18.0-39.1 L [facility] ChildrenMonocytes (%) (Auto)2019-04-28 14:49:00* Test Item Value Reference Range Interpretation Comments Monocytes (%) (Auto) (test code = 5905-5) 5.4 4.4-11.3 [facility] ChildrenEosinophils (%) (Auto)2019-04-28 14:49:00 * Test Item Value Reference Range Interpretation Comments Eosinophils (%) (Auto) (test code = 713-8) 0.5 0.0-6.0 [facility] ChildrenBasophils (%) (Auto)2019-04-28 14:49:00* Test Item Value Reference Range Interpretation Comments Basophils (%) (Auto) (test code = 706-2) 0.5 0.0-1.0 [facility] ChildrenIM GRANULOCYTES %2019-04-28 14:49:00* Test Item Value Reference Range Interpretation Comments IM GRANULOCYTES % (test code = IM GRANULOCYTES %) 0.4 0.0- 1.0 [facility] ChildrenNeutrophils # (Auto)2019-04-28 14:49:00* Test Item Value Reference Range Interpretation Comments Neutrophils # (Auto) (test code = 751-8) 6.6 2.1-6.9 [facility] ChildrenLymphocytes # (Auto)2019-04-28 14:49:00* Test Item Value Reference Range Interpretation Comments Lymphocytes # (Auto) (test code = 15871-9) 0.8 1.0-3.2 L [facility] ChildrenMonocytes # (Auto)2019-04-28 14:49:00* Test Item Value Reference Range Interpretation Comments Monocytes # (Auto) (test code = 742-7) 0.4 0.2-0.8 [facility] ChildrenEosinophils # (Auto)2019-04-28 14:49:00* Test Item Value Reference Range Interpretation Comments Eosinophils # (Auto) (test code = 711-2) 0.0 0.0-0.4 [facility] ChildrenBasophils # (Auto)2019-04-28 14:49:00* Test Item Value Reference Range Interpretation Comments Basophils # (Auto) (test code = 704-7) 0.0 0.0-0.1 [facility] ChildrenAbsolute Immature Granulocyte (auto 2019-04-28 14:49:00* Test Item Value Reference Range Interpretation Comments Absolute Immature Granulocyte (auto (lionel t code = Absolute Immature Granulocyte (auto) 0.03 0-0.1 [facility] ChildrenURINALYSIS IWUNICXW3219-91-47 22:55:00* Test Item Value Reference Range Interpretation [...] A Urine Source? Clean CatchKNEE THREE VIEWS LRRCWXMKF9895-68-87 14:30:[address] [place] [address] Patient Name: SHARLENE MOORE MR #: [id number] : 1935 Age/Sex: 84/F Req #: [id number] Adm Physician: Ordered by: FAVIOLA BAEZ Report #: [id number] Location: [facility] Room/Bed: Procedure: [id number] DX/KN EE THREE VIEWS BILATERAL Exam Date: [...] 2:31 PM Dictated By: JAEL QUIÑONES MD 30 Transcribed By: JOHN on 03/21/191430 COPY TO: FAVIOLA BAEZ (NON STAFF) SP LUMBAR AP LATERAL 2-3VWS 2019-03-21 14:26:00 [place] [address] Patient Name: SHARLENE MOORE MR #: [id number] : 1935 Age/Sex: 84/F Req #: [id number] Adm Physician: Ordered by: FAVIOLA BAEZ Report #: [id number] Location: [facility] Room/Bed: Procedure: [id number] DX/SP LUMBAR AP LATERAL 2-3VWS Exam Date: [...] TO: FAVIOLA RODRIGUEZ (NON STAFF) CERVICAL 3 [id number] 14:23:00 [facility] [address] [id number] Patient Name: SHARLENE MOORE MR #: [id number] : 1935 Age/Sex: 84/F Req #: [id number] Adm Physician: Ordered by: FAVIOLA BAEZ Report #: [id number] Location: [facility] Room/Bed: Procedure: [id number] DX/CE RVICAL 3 VIEWS Exam Date: 03/21/19 [...] BAEZ (NON STAFF) CHEST SINGLE (PORTABLE)2019-02-10 20:14:00 [place] [address] Patient Name: SHARLENE MOORE MR #: [id number] : 1935 Age/Sex: 84/F Req #: [id number] Adm Physician: Ordered by: EMILY ABDULLAHI MD Report #: [id number] Location: ER Room/Bed: Procedure: [id number] DX/C HEST SINGLE (PORTABLE) Exam Date: 02/10/19 [...] Comments Creatine Kinase MB (test code = 48116-9) 0.60 0-5.0 [facility] ChildrenTroponin [id number] 19:20:00* Test Item Value Reference Range Interpretation Comments Troponin I (test code = ASQ5245) < 0.001 0-0.300 [facility] ChildrenThyroid Stimulating Hormone (TSH) 2019-02-10 19:20:00* Test Item Value Reference Range Interpretation Comments Thyroid Stimulating Hormone (TSH) (test code = 84976-0) 1.311 0.350-4.940 [facility] ChildrenCreatine Kinase [id number] 19:20:00* Test Item Value Reference Range Interpretation Comments Creatine Kinase MB (test code = 51617-9) 0.60 0-5.0 [facility] ChildrenTroponin [id number] 19:20:00* Test Item Value Reference Range Interpretation Comments Troponin I (test code = OPE8770) < 0.001 0-0.300 [facility] ChildrenThyroid Stimulating Hormone (TSH) 2019-02-10 19:20:00* Test Item Value Reference Range Interpretation Comments Thyroid Stimulating Hormone (TSH) (test code = 33935-5) 1.311 0.350-4.940 [facility] ChildrenThyroid Stimulating Hormone (TSH) 2019-02-10 19:20:00* Test Item Value Reference Range Interpretation Comments Thyroid Stimulating Hormone (TSH) (test code = 80375-5) 1.311 0.350-4.940 [facility] Crvcf3702-27-05 18:57:00* Test Item Value Reference Range Interpretation Comments Sodium Level (test code = 2951-2) 137 136-145 [facility] ChildrenPotassium Hmaez3506-07-18 18:57:00* Test Item Value Reference Range Interpretation Comments Potassium Level (test code = 2823-3) 4.1 3.5-5.1 [facility] ChildrenChloride Yojbl7696-31-18 18:57:00* Test Item Value Reference Range Interpretation Comments Chloride Level (test code = 2075-0) 102 98-107 [facility] ChildrenCarbon Dioxide Jpgdy6706-81-05 18:57:00* Test Item Value Reference Range Interpretation Comments Carbon Dioxide Level (test code = 2028-9) 24 22-29 [facility] ChildrenAnion Yjz5261-75-77 18:57:00* Test Item Value Reference Range Interpretation Comments Anion Gap (test code = 20469-1) 15.1 8-16 [facility] ChildrenBlood Urea Lhpqmwix8562-55-79 18:57:00* Test Item Value Reference Range Interpretation Comments Blood Urea Nitrogen (test code = 3094-0) 11 7-26 [facility] ChildrenCreatinine2019-08-05 18:57:00* Test Item Value Reference Range Interpretation Comments Creatinine (test code = 2160-0) 0.75 0.57-1.11 [facility] ChildrenBUN/Creatinine Ylsqk6089-69-13 18:57:00* Test Item Value Reference Range Interpretation Comments BUN/Creatinine Ratio (test code = 3097-3) 15 6-25 [facility] ChildrenEstimat Glomerular Filtration Rate 2019-02-10 18:57:00* Test Item Value Reference Range Interpretation Comments Estimat Glomerular Filtration Rate (test code = 529861984) > 60 >60 Ranges were taken from the National Kidney Disease Education Program and the [facility] Kidney Foundation literature.Reference ranges:60 or greater: Hmpseb19-66 ( for 3 consecutive months): Chronic kidney disease 15 or less: Kidney failureTexas [facility]ite Hospital for ChildrenGlucose Ypuaj5190-11-88 18:57:00* Test Item Value Reference Range Interpretation Comments Glucose Level (test code = TBU5230) 103 74-118 [facility] ChildrenCalcium Fvyrq8665-69-40 18:57:00* Test Item Value Reference Range Interpretation Comments Calcium Level (test code = 11739-2) 9.1 8.4-10.2 [facility] ChildrenTotal Kzofohzuh5937-36-64 18:57:00* Test Item Value Reference Range Interpretation Comments Total Bilirubin (test code = 1975-2) 0.2 0.2-1.2 [facility] ChildrenAspartate Amino Transf (AST/SGOT) 2019-02-10 18:57:00* Test Item Value Reference Range Interpretation Comments Aspartate Amino Transf (AST/SGOT) (test code = Aspartate Amino Transf (AST/SGOT)) 19 5-34 [facility] ChildrenAlanine Aminotransferase (ALT/SGPT) 2019-02-10 18:57:00* Test Item Value Reference Range Interpretation Comments Alanine Aminotransferase (ALT/SGPT) (test code = 1742-6) 12 0-55 [facility] ChildrenTotal Aymduxi8117-92-03 18:57:00* Test Item Value Reference Range Interpretation Comments Total Protein (test code = 2885-2) 6.9 6.5-8.1 [facility] ChildrenAlbumin2019-08-05 18:57:00* Test Item Value Reference Range Interpretation Comments Albumin (test code = 1751-7) 3.5 3.5-5.0 [facility] ChildrenGlobulin2019-08-05 18:57:00* Test Item Value Reference Range Interpretation Comments Globulin (test code = 71236-7) 3.4 2.3-3.5 [facility] ChildrenAlbumin/Globulin Qwsvs0435-81-56 18:57:00 * Test Item Value Reference Range Interpretation Comments Albumin/Globulin Ratio (test code = 1759-0) 1.0 0.8-2.0 [facility] ChildrenAlkaline Mznieigvdsf8781-42-58 18:57:00* Test Item Value Reference Range Interpretation Comments Alkaline Phosphatase (test code = 6768-6) 85 40-150 [facility] ChildrenCreatine Bbzbqg6478-84-10 18:57:00* Test Item Value Reference Range Interpretation Comments Creatine Kinase (test code = 2157-6) 37 29-168 [facility] ChildrenTotal Criuynalv7154-05-10 18:57:00* Test Item Value Reference Range Interpretation Comments Total Bilirubin (test code = 1975-2) 0.2 0.2-1.2 [facility] ChildrenAspartate Amino Transf (AST/SGOT) 2019-02-10 18:57:00* Test Item Value Reference Range Interpretation Comments Aspartate Amino Transf (AST/SGOT) (test code = Aspartate Amino Transf (AST/SGOT)) 19 5-34 [facility] ChildrenAlanine Aminotransferase (ALT/SGPT) 2019-02-10 18:57:00* Test Item Value Reference Range Interpretation Comments Alanine Aminotransferase (ALT/SGPT) (test code = 1742-6) 12 0-55 [facility] ChildrenTotal Uxvbcee7012-83-08 18:57:00* Test Item Value Reference Range Interpretation Comments Total Protein (test code = 2885-2) 6.9 6.5-8.1 [facility] ChildrenAlbumin2019-08-05 18:57:00* Test Item Value Reference Range Interpretation Comments Albumin (test code = 1751-7) 3.5 3.5-5.0 [facility] ChildrenGlobulin2019-08-05 18:57:00* Test Item Value Reference Range Interpretation Comments Globulin (test code = 71022-1) 3.4 2.3-3.5 [facility] ChildrenAlbumin/Globulin Twkdr4533-00-19 18:57:00 * Test Item Value Reference Range Interpretation Comments Albumin/Globulin Ratio (test code = 1759-0) 1.0 0.8-2.0 [facility] ChildrenAlkaline Vzrevwvbrdy8160-99-65 18:57:00* Test Item Value Reference Range Interpretation Comments Alkaline Phosphatase (test code = 6768-6) 85 40-150 [facility] ChildrenCreatine Gurulb2859-92-03 18:57:00* Test Item Value Reference Range Interpretation Comments Creatine Kinase (test code = 2157-6) 37 29-168 [facility] ChildrenProthrombin Zmyf7095-12-32 18:49:00* Test Item Value Reference Range Interpretation Comments Prothrombin Time (test code = 5902-2) 12.1 11.9-14.5 [facility] ChildrenProthromb Time International Ratio 2019-02-10 18:49:00* Test Item Value Reference Range Interpretation Comments Prothromb Time International Ratio (test code = 6301-6) 0.85 Oral Anticoagulant Therapy INR Values:1. Low Intensity Therapy 1.5 - 2.02 . Moderate Intensity Therapy 2.0 - 3.03. High Intensity Therapy(1) 2.5 - 3. 54. High Intensity Therapy(2) 3.0 - 4.05. Panic Value INR > 5.0 [facility] ChildrenActivated Partial Thromboplast Time 2019-02-10 18:49:00* Test Item Value Reference Range Interpretation Comments Activated Partial Thromboplast Time (test code = 68157-6) 29.7 23.8-35.5 [facility] ChildrenProthrombin Zxya9441-76-86 18:49:00* Test Item Value Reference Range Interpretation Comments Prothrombin Time (test code = 5902-2) 12.1 11.9-14.5 [facility] ChildrenProthromb Time International Ratio 2019-02-10 18:49:00* Test Item Value Reference Range Interpretation Comments Prothromb Time International Ratio (test code = 6301-6) 0.85 Oral Anticoagulant Therapy INR Values:1. Low Intensity Therapy 1.5 - 2.02 . Moderate Intensity Therapy 2.0 - 3.03. High Intensity Therapy(1) 2.5 - 3. 54. High Intensity Therapy(2) 3.0 - 4.05. Panic Value INR > 5.0 [facility] ChildrenActivated Partial Thromboplast Time 2019-02-10 18:49:00* Test Item Value Reference Range Interpretation Comments Activated Partial Thromboplast Time (test code = 63513-2) 29.7 23.8-35.5 [facility] ChildrenProthrombin Utyp6302-04-29 18:49:00* Test Item Value Reference Range Interpretation Comments Prothrombin Time (test code = 5902-2) 12.1 11.9-14.5 [facility] ChildrenProthromb Time International Ratio 2019-02-10 18:49:00* Test Item Value Reference Range Interpretation Comments Prothromb Time International Ratio (test code = 6301-6) 0.85 Oral Anticoagulant Therapy INR Values:1. Low Intensity Therapy 1.5 - 2.02 . Moderate Intensity Therapy 2.0 - 3.03. High Intensity Therapy(1) 2.5 - 3. 54. High Intensity Therapy(2) 3.0 - 4.05. Panic Value INR > 5.0 [facility] ChildrenActivated Partial Thromboplast Time 2019-02-10 18:49:00* Test Item Value Reference Range Interpretation Comments Activated Partial Thromboplast Time (test code = 16586-1) 29.7 23.8-35.5 [facility] ChildrenWhite Blood Zucdv0124-96-47 18:44:00* Test Item Value Reference Range Interpretation Comments White Blood Count (test code = 6690-2) 6.37 4.8-10.8 [facility] ChildrenRed Blood Vlgzb9850-93-12 18:44:00* Test Item Value Reference Range Interpretation Comments Red Blood Count (test code = 789-8) 3.68 3.6-5.1 [facility] ChildrenHemoglobin2019-08-05 18:44:00* Test Item Value Reference Range Interpretation Comments Hemoglobin (test code = 98958-2) 11.6 12.0-16.0 L [facility] ChildrenHematocrit2019-08-05 18:44:00* Test Item Value Reference Range Interpretation Comments Hematocrit (test code = 4544-3) 35.3 34.2-44.1 [facility] ChildrenMean Corpuscular Rlpaew3797-27-77 18:44:00* Test Item Value Reference Range Interpretation Comments Mean Corpuscular Volume (test code = 787-2) 95.9 81-99 [facility] ChildrenMean Corpuscular Visthuwxfg5058-33-11 18:44:00* Test Item Value Reference Range Interpretation Comments Mean Corpuscular Hemoglobin (test code = 785-6) 31.5 28-32 [facility] ChildrenMean Corpuscular Hemoglobin Concent 2019-02-10 18:44:00* Test Item Value Reference Range Interpretation Comments Mean Corpuscular Hemoglobin Concent (test code = 786-4) 32.9 31-35 [facility] ChildrenRed Cell Distribution Kjxvi3967-61-88 18:44:00* Test Item Value Reference Range Interpretation Comments Red Cell Distribution Width (test code = 07823-3) 12.2 11.7 -14.4 [facility] ChildrenPlatelet Cvyhq6005-16-88 18:44:00* Test Item Value Reference Range Interpretation Comments Platelet Count (test code = 777-3) 265 140-360 [facility] ChildrenNeutrophils (%) (Auto)2019-02-10 18:44:00 * Test Item Value Reference Range Interpretation Comments Neutrophils (%) (Auto) (test code = 29304-5) 77.2 38.7-80.0 [facility] ChildrenLymphocytes (%) (Auto)2019-02-10 18:44:00 * Test Item Value Reference Range Interpretation Comments Lymphocytes (%) (Auto) (test code = 736-9) 12.9 18.0-39.1 L [facility] ChildrenMonocytes (%) (Auto)2019-02-10 18:44:00* Test Item Value Reference Range Interpretation Comments Monocytes (%) (Auto) (test code = 5905-5) 7.8 4.4-11.3 [facility] ChildrenEosinophils (%) (Auto)2019-02-10 18:44:00 * Test Item Value Reference Range Interpretation Comments Eosinophils (%) (Auto) (test code = 713-8) 1.3 0.0-6.0 [facility] ChildrenBasophils (%) (Auto)2019-02-10 18:44:00* Test Item Value Reference Range Interpretation Comments Basophils (%) (Auto) (test code = 706-2) 0.5 0.0-1.0 [facility] ChildrenIM GRANULOCYTES %2019-02-10 18:44:00* Test Item Value Reference Range Interpretation Comments IM GRANULOCYTES % (test code = IM GRANULOCYTES %) 0.3 0.0- 1.0 [facility] ChildrenNeutrophils # (Auto)2019-02-10 18:44:00* Test Item Value Reference Range Interpretation Comments Neutrophils # (Auto) (test code = 751-8) 4.9 2.1-6.9 [facility] ChildrenLymphocytes # (Auto)2019-02-10 18:44:00* Test Item Value Reference Range Interpretation Comments Lymphocytes # (Auto) (test code = 10552-5) 0.8 1.0-3.2 L [facility] ChildrenMonocytes # (Auto)2019-02-10 18:44:00* Test Item Value Reference Range Interpretation Comments Monocytes # (Auto) (test code = 742-7) 0.5 0.2-0.8 [facility] ChildrenEosinophils # (Auto)2019-02-10 18:44:00* Test Item Value Reference Range Interpretation Comments Eosinophils # (Auto) (test code = 711-2) 0.1 0.0-0.4 [facility] ChildrenBasophils # (Auto)2019-02-10 18:44:00* Test Item Value Reference Range Interpretation Comments Basophils # (Auto) (test code = 704-7) 0.0 0.0-0.1 [facility] ChildrenAbsolute Immature Granulocyte (auto 2019-02-10 18:44:00* Test Item Value Reference Range Interpretation Comments Absolute Immature Granulocyte (auto (lionel t code = Absolute Immature Granulocyte (auto) 0.02 0-0.1 [facility] ChildrenUrine JEH8898-56-26 18:33:00* Test Item Value Reference Range Interpretation Comments Urine WBC (test code = 5821-4) 0-5 0-5 [facility] ChildrenUrine MGW5811-91-79 18:33:00* Test Item Value Reference Range Interpretation Comments Urine RBC (test code = 94561-7) 0-5 0-5 [facility] ChildrenUrine Bryrgubr4676-22-62 18:33:00* Test Item Value Reference Range Interpretation Comments Urine Bacteria (test code = 30709-6) RARE NONE [facility] ChildrenUrine Epithelial Vfqyw0180-69-59 18:33:00 * Test Item Value Reference Range Interpretation Comments Urine Epithelial Cells (test code = 66090-7) NONE NONE [facility] ChildrenUrine Iufoy6995-49-15 18:08:00* Test Item Value Reference Range Interpretation Comments Urine Color (test code = 5778-6) YELLOW YELLOW [facility] ChildrenUrine Clsdsfv6745-67-67 18:08:00* Test Item Value Reference Range Interpretation Comments Urine Clarity (test code = 16244-3) CLEAR CLEAR [facility] ChildrenUrine Specific Myswobw0776-79-22 18:08:00 * Test Item Value Reference Range Interpretation Comments Urine Specific [place] (test code = 5811-5) 1.005 1.010-1.02 5 L [facility] ChildrenUrine sB7220-16-45 18:08:00* Test Item Value Reference Range Interpretation Comments Urine pH (test code = 86602-3) 7 5-7 [facility] ChildrenUrine Leukocyte Mwiwlodl2875-42-11 18:08:00* Test Item Value Reference Range Interpretation Comments Urine Leukocyte Esterase (test code = 5799-2) TRACE NEGATIVE H [facility] ChildrenUrine Ztcxabz3663-63-13 18:08:00* Test Item Value Reference Range Interpretation Comments Urine Nitrite (test code = 29750-3) NEGATIVE NEGATIVE [facility] ChildrenUrine Tthnfss3988-20-15 18:08:00* Test Item Value Reference Range Interpretation Comments Urine Protein (test code = 5804-0) NEGATIVE NEGATIVE [facility] ChildrenUrine Glucose (UA)2019-02-10 18:08:00* Test Item Value Reference Range Interpretation Comments Urine Glucose (UA) (test code = 2349-9) NEGATIVE NEGATIVE [facility] ChildrenUrine Gakoehj5155-53-66 18:08:00* Test Item Value Reference Range Interpretation Comments Urine Ketones (test code = 59403-1) NEGATIVE NEGATIVE [facility] ChildrenUrine Tyttxyqdgtdo9798-91-05 18:08:00* Test Item Value Reference Range Interpretation Comments Urine Urobilinogen (test code = 54237-5) 0.2 0.2-1 [facility] ChildrenUrine Uqxxgegwv5789-59-45 18:08:00* Test Item Value Reference Range Interpretation Comments Urine Bilirubin (test code = 1978-6) NEGATIVE NEGATIVE [facility] ChildrenUrine Nfxrg3449-13-45 18:08:00* Test Item Value Reference Range Interpretation Comments Urine Blood (test code = 10224-4) TRACE NEGATIVE H [facility] ChildrenURINALYSIS PWHRJFKH8831-07-63 12:37:00* Test Item Value Reference Range Interpretation [...] per HPF NONE Urine Source? Clean CatchURINALYSIS GCFMKCTW8804-43-17 12:29:00* Test Item Value Reference Range Interpretation [...] per HPF NONE Urine Source? Clean CatchBedside Ofmqvpg0982-05-85 08:01:00* Test Item Value Reference Range Interpretation Comments Bedside Glucose (test code = 28686-9) 115 70-120 Meter ID: [id number] [facility] 2018-08-29 08:01:00* Test Item Value Reference Range Interpretation Comments Bedside Glucose (test code = 63631-8) 115 70-120 M[facility]: [id number] [facility] 17:09:00 [facility] [address] [address] Patient Name: SHARLENE MOORE MR #: [id number] : 1935 Age/Sex: 83/F Req #: [id number] Adm Physician: Ordered by: DAVIDA ENAMORADO MD Report #: [id number] Location: ER Room/Bed: Procedure: [id number] CT /CT ABDOMEN/PELVIS WO Exam Date: 08/11/18 [...] 08/11/181712 COPY TO: DAVIDA ENAMORADO MD Sodium Bkmtp5334-85-55 16:07:00* Test Item Value Reference Range Interpretation Comments Sodium Level (test code = 2951-2) 139 136-145 [facility] ChildrenPotassium Lejes0678-42-39 16:07:00* Test Item Value Reference Range Interpretation Comments Potassium Level (test code = 2823-3) 4.0 3.5-5.1 [facility] ChildrenChloride Galph6201-06-05 16:07:00* Test Item Value Reference Range Interpretation Comments Chloride Level (test code = 2075-0) 102 98-107 [facility] ChildrenCarbon Dioxide Wasnh2740-35-77 16:07:00* Test Item Value Reference Range Interpretation Comments Carbon Dioxide Level (test code = 2028-9) 26 22-29 [facility] ChildrenAnion Ugo2691-48-80 16:07:00* Test Item Value Reference Range Interpretation Comments Anion Gap (test code = 04692-0) 15.0 8-16 [facility] ChildrenBlood Urea Papzogec5223-82-43 16:07:00* Test Item Value Reference Range Interpretation Comments Blood Urea Nitrogen (test code = 3094-0) 8 7-26 [facility] ChildrenCreatinine2019-02-03 16:07:00* Test Item Value Reference Range Interpretation Comments Creatinine (test code = 2160-0) 0.75 0.57-1.11 [facility] ChildrenBUN/Creatinine Rmdjf4511-51-01 16:07:00* Test Item Value Reference Range Interpretation Comments BUN/Creatinine Ratio (test code = 3097-3) 11 6-25 [facility] ChildrenEstimat Glomerular Filtration Rate 2018-08-11 16:07:00* Test Item Value Reference Range Interpretation Comments Estimat Glomerular Filtration Rate (test code = 751347322) > 60 >60 Ranges were taken from the National Kidney Disease Education Program and the [facility] Kidney Foundation literature.Reference ranges:60 or greater: Xrteyg34-24 ( for 3 consecutive months): Chronic kidney disease 15 or less: Kidney failureTexas Scottish Rite Hospital for ChildrenGlucose Wytij7201-87-63 16:07:00* Test Item Value Reference Range Interpretation Comments Glucose Level (test code = CAU1351) 100 74-118 [facility] ChildrenCalcium Xuozx3021-86-87 16:07:00* Test Item Value Reference Range Interpretation Comments Calcium Level (test code = 48384-5) 9.3 8.4-10.2 [facility] ChildrenTotal Xxenhhxph5010-50-52 16:07:00* Test Item Value Reference Range Interpretation Comments Total Bilirubin (test code = 1975-2) 0.4 0.2-1.2 [facility] ChildrenAspartate Amino Transf (AST/SGOT) 2018-08-11 16:07:00* Test Item Value Reference Range Interpretation Comments Aspartate Amino Transf (AST/SGOT) (test code = Aspartate Amino Transf (AST/SGOT)) 28 5-34 [facility] ChildrenAlanine Aminotransferase (ALT/SGPT) 2018-08-11 16:07:00* Test Item Value Reference Range Interpretation Comments Alanine Aminotransferase (ALT/SGPT) (test code = 1742-6) 22 0-55 [facility] ChildrenTotal Nqobegn8521-69-95 16:07:00* Test Item Value Reference Range Interpretation Comments Total Protein (test code = 2885-2) 7.1 6.5-8.1 [facility] ChildrenAlbumin2019-02-03 16:07:00* Test Item Value Reference Range Interpretation Comments Albumin (test code = 1751-7) 4.1 3.5-5.0 [facility] ChildrenGlobulin2019-02-03 16:07:00* Test Item Value Reference Range Interpretation Comments Globulin (test code = 54356-0) 3.0 2.3-3.5 [facility] ChildrenAlbumin/Globulin Hifct2854-35-45 16:07:00 * Test Item Value Reference Range Interpretation Comments Albumin/Globulin Ratio (test code = 1759-0) 1.4 0.8-2.0 [facility] ChildrenAlkaline Gituomzkpmu6173-09-11 16:07:00* Test Item Value Reference Range Interpretation Comments Alkaline Phosphatase (test code = 6768-6) 69 40-150 [facility] ChildrenUrine WYF9882-28-75 16:03:00* Test Item Value Reference Range Interpretation Comments Urine WBC (test code = 5821-4) 11-20 0-5 H [facility] ChildrenUrine HCA8360-84-57 16:03:00* Test Item Value Reference Range Interpretation Comments Urine RBC (test code = 91034-5) 0-5 0-5 [facility] ChildrenUrine Aocclnuw6595-65-53 16:03:00* Test Item Value Reference Range Interpretation Comments Urine Bacteria (test code = 76544-6) FEW NONE [facility] ChildrenUrine Epithelial Xocpq2662-42-56 16:03:00 * Test Item Value Reference Range Interpretation Comments Urine Epithelial Cells (test code = 54196-7) FEW NONE [facility] ChildrenUrine Dwxox2600-62-53 15:59:00* Test Item Value Reference Range Interpretation Comments Urine Color (test code = 5778-6) YELLOW YELLOW [facility] ChildrenUrine Frbwwef7458-77-27 15:59:00* Test Item Value Reference Range Interpretation Comments Urine Clarity (test code = 83003-2) CLEAR CLEAR [facility] ChildrenUrine Specific Ndqbwex1141-32-16 15:59:00 * Test Item Value Reference Range Interpretation Comments Urine Specific [place] (test code = 5811-5) 1.000 1.010-1.02 5 L [facility] ChildrenUrine uL5026-90-76 15:59:00* Test Item Value Reference Range Interpretation Comments Urine pH (test code = 88736-3) 7 5-7 [facility] ChildrenUrine Leukocyte Kcgvjweo1493-61-54 15:59:00* Test Item Value Reference Range Interpretation Comments Urine Leukocyte Esterase (test code = 5799-2) 1+ NEGATIVE H [facility] ChildrenUrine Uhuhujm8907-97-27 15:59:00* Test Item Value Reference Range Interpretation Comments Urine Nitrite (test code = 79982-9) NEGATIVE NEGATIVE [facility] ChildrenUrine Tgjgeid2676-71-95 15:59:00* Test Item Value Reference Range Interpretation Comments Urine Protein (test code = 5804-0) NEGATIVE NEGATIVE [facility] Glucose (UA)2018-08-11 15:59:00* Test Item Value Reference Range Interpretation Comments Urine Glucose (UA) (test code = 2349-9) NEGATIVE NEGATIVE [facility] ChildrenUrine Ovzukba0486-88-34 15:59:00* Test Item Value Reference Range Interpretation Comments Urine Ketones (test code = 75845-9) NEGATIVE NEGATIVE [facility] Cbpwqooornzg8781-58-31 15:59:00* Test Item Value Reference Range Interpretation Comments Urine Urobilinogen (test code = 74619-8) 0.2 0.2-1 [facility] ChildrenUrine Fkxdubogw4351-48-18 15:59:00* Test Item Value Reference Range Interpretation Comments Urine Bilirubin (test code = 1978-6) NEGATIVE NEGATIVE [facility] ChildrenUrine Esofc3840-83-32 15:59:00* Test Item Value Reference Range Interpretation Comments Urine Blood (test code = 34245-6) NEGATIVE NEGATIVE [facility] ChildrenWhite Blood Fpckf6556-12-26 15:53:00* Test Item Value Reference Range Interpretation Comments White Blood Count (test code = 6690-2) 6.17 4.8-10.8 [facility] ChildrenRed Blood Iipja3493-64-76 15:53:00* Test Item Value Reference Range Interpretation Comments Red Blood Count (test code = 789-8) 3.77 3.6-5.1 [facility] ChildrenHemoglobin2019-02-03 15:53:00* Test Item Value Reference Range Interpretation Comments Hemoglobin (test code = 78886-7) 12.6 12.0-16.0 [facility] ChildrenHematocrit2019-02-03 15:53:00* Test Item Value Reference Range Interpretation Comments Hematocrit (test code = 4544-3) 35.8 34.2-44.1 [facility] ChildrenMean Corpuscular Einxxd7830-62-98 15:53:00* Test Item Value Reference Range Interpretation Comments Mean Corpuscular Volume (test code = 787-2) 95.0 81-99 [facility] ChildrenMean Corpuscular Rbqusaqnnv9817-21-24 15:53:00* Test Item Value Reference Range Interpretation Comments Mean Corpuscular Hemoglobin (test code = 785-6) 33.4 28-32 H [facility] ChildrenMean Corpuscular Hemoglobin Concent 2018-08-11 15:53:00* Test Item Value Reference Range Interpretation Comments Mean Corpuscular Hemoglobin Concent (test code = 786-4) 35.2 31-35 H [facility] ChildrenRed Cell Distribution Bldmn7544-49-33 15:53:00* Test Item Value Reference Range Interpretation Comments Red Cell Distribution Width (test code = 02139-8) 12.4 11.7 -14.4 [facility] ChildrenPlatelet Ibckj5931-55-94 15:53:00* Test Item Value Reference Range Interpretation Comments Platelet Count (test code = 777-3) 266 140-360 [facility] ChildrenNeutrophils (%) (Auto)2018-08-11 15:53:00 * Test Item Value Reference Range Interpretation Comments Neutrophils (%) (Auto) (test code = 43939-5) 77.1 38.7-80.0 [facility] ChildrenLymphocytes (%) (Auto)2018-08-11 15:53:00 * Test Item Value Reference Range Interpretation Comments Lymphocytes (%) (Auto) (test code = 736-9) 14.1 18.0-39.1 L [facility] ChildrenMonocytes (%) (Auto)2018-08-11 15:53:00* Test Item Value Reference Range Interpretation Comments Monocytes (%) (Auto) (test code = 5905-5) 6.6 4.4-11.3 [facility] ChildrenEosinophils (%) (Auto)2018-08-11 15:53:00 * Test Item Value Reference Range Interpretation Comments Eosinophils (%) (Auto) (test code = 713-8) 1.1 0.0-6.0 [facility] ChildrenBasophils (%) (Auto)2018-08-11 15:53:00* Test Item Value Reference Range Interpretation Comments Basophils (%) (Auto) (test code = 706-2) 0.8 0.0-1.0 [facility] ChildrenIM GRANULOCYTES %2018-08-11 15:53:00* Test Item Value Reference Range Interpretation Comments IM GRANULOCYTES % (test code = IM GRANULOCYTES %) 0.3 0.0- 1.0 [facility] ChildrenNeutrophils # (Auto)2018-08-11 15:53:00* Test Item Value Reference Range Interpretation Comments Neutrophils # (Auto) (test code = 751-8) 4.8 2.1-6.9 [facility] ChildrenLymphocytes # (Auto)2018-08-11 15:53:00* Test Item Value Reference Range Interpretation Comments Lymphocytes # (Auto) (test code = 78686-3) 0.9 1.0-3.2 L [facility] ChildrenMonocytes # (Auto)2018-08-11 15:53:00* Test Item Value Reference Range Interpretation Comments Monocytes # (Auto) (test code = 742-7) 0.4 0.2-0.8 [facility] ChildrenEosinophils # (Auto)2018-08-11 15:53:00* Test Item Value Reference Range Interpretation Comments Eosinophils # (Auto) (test code = 711-2) 0.1 0.0-0.4 [facility] ChildrenBasophils # (Auto)2018-08-11 15:53:00* Test Item Value Reference Range Interpretation Comments Basophils # (Auto) (test code = 704-7) 0.1 0.0-0.1 [facility] ChildrenAbsolute Immature Granulocyte (auto 2018-08-11 15:53:00* Test Item Value Reference Range Interpretation Comments Absolute Immature Granulocyte (auto (lionel t code = Absolute Immature Granulocyte (auto) 0.02 0-0.1 [facility] ChildrenBONE DXA DUAL ESWOVE5960-73-80 15:50:00 [place] [address] Patient Name: SHARLENE MOORE MR #: [id number] : 3 Age/Sex: 83/F Req #: [id number] Adm Physician: Ordered by: LIGIA WEST DO Report #: [id number] Location: DX Room/Bed: Procedure: [id number] DX/B ONE DXA DUAL ENERGY Exam Date: Exam Time: REPORT STATUS: Signed EXAM: BONE MINERA L DENSITY HISTORY: Bone mineralization evaluation COMPARISON: None DISCU SSION: Evaluation of the left hip and lumbar spine was performed utilizing [employer] bone densitometer. The study is technically [...] 1550 COPY TO: LIGIA WEST DO Urine Msxkmmefqu7536-63-35 22:38:00* Test Item Value Reference Range Interpretation Comments Urine Osmolality (test code = 2695-5) 136 . 24 hr : 300 - 900 Random: 50 - 1400 After 12hr fluid restriction: >850Performed at: - [facility] [address] [id number] Director: Lauri Read MD, Phone: [phone] [facility] for ChildrenUrine Osmolality 2018-07-22 22:38:00* Test Item Value Reference Range Interpretation Comments Urine Osmolality (test code = 2695-5) 136 . 24 hr : 300 - 900 Random: 50 - 1400 After 12hr fluid restriction: >850Performed at: HD - [facility] [address] [id number] Director: Lauri Read MD, Phone: [phone] Scottish Rite Hospital for ChildrenUrine Osmolality 2018-07-22 22:38:00* Test Item Value Reference Range Interpretation Comments Urine Osmolality (test code = 2695-5) 136 . 24 hr : 300 - 900 Random: 50 - 1400 After 12hr fluid restriction: >850Performed at: HD - [facility] [address] [id number] Director: Lauri Read MD, Phone: [phone] Health Hospital [facility] Glucose 2018-07-21 11:40:00* Test Item Value Reference Range Interpretation Comments Bedside Glucose (test code = 48593-8) 145 70-120 H Meter ID: [id number] Health Hospital [facility] Glucose 2018-07-21 11:40:00* Test Item Value Reference Range Interpretation Comments Bedside Glucose (test code = 10465-6) 145 70-120 H Meter ID: [id number] Medical Centerodium Level 2018-07-21 06:52:00* Test Item Value Reference Range Interpretation Comments Sodium Level (test code = 2951-2) 137 136-145 [facility] ChildrenPotassium Dpasm4496-98-09 06:52:00* Test Item Value Reference Range Interpretation Comments Potassium Level (test code = 2823-3) 4.2 3.5-5.1 [facility] ChildrenChloride Hcnwx9592-38-83 06:52:00* Test Item Value Reference Range Interpretation Comments Chloride Level (test code = 2075-0) 104 98-107 [facility] ChildrenCarbon Dioxide Owhyi8666-56-64 06:52:00* Test Item Value Reference Range Interpretation Comments Carbon Dioxide Level (test code = 2028-9) 24 22-29 [facility] ChildrenAnion Pvn8998-61-17 06:52:00* Test Item Value Reference Range Interpretation Comments Anion Gap (test code = 29442-2) 13.2 8-16 [facility] ChildrenBlood Urea Nmdpdcox5069-61-59 06:52:00* Test Item Value Reference Range Interpretation Comments Blood Urea Nitrogen (test code = 3094-0) 13 7-26 [facility] ChildrenCreatinine2019-01-13 06:52:00* Test Item Value Reference Range Interpretation Comments Creatinine (test code = 2160-0) 0.72 0.57-1.11 [facility] ChildrenBUN/Creatinine Xhvwo4443-63-95 06:52:00* Test Item Value Reference Range Interpretation Comments BUN/Creatinine Ratio (test code = 3097-3) 18 6-25 [facility] ChildrenEstimat Glomerular Filtration Rate 2018-07-21 06:52:00* Test Item Value Reference Range Interpretation Comments Estimat Glomerular Filtration Rate (test code = 027370977) > 60 >60 Ranges were taken from the National Kidney Disease Education Program and the [facility] Kidney Foundation literature.Reference ranges:60 or greater: Faodhm01-46 ( for 3 consecutive months): Chronic kidney disease 15 or less: Kidney failureTexas Scottish Rite Hospital for ChildrenGlucose Jjgss1033-34-29 06:52:00* Test Item Value Reference Range Interpretation Comments Glucose Level (test code = ERL2667) 104 74-118 [facility] ChildrenCalcium Zsazm8105-02-96 06:52:00* Test Item Value Reference Range Interpretation Comments Calcium Level (test code = 62078-6) 9.3 8.4-10.2 [facility] ChildrenWhite Blood Cxbbc7370-12-70 06:27:00* Test Item Value Reference Range Interpretation Comments White Blood Count (test code = 6690-2) 7.61 4.8-10.8 [facility] ChildrenRed Blood Malcm0665-80-57 06:27:00* Test Item Value Reference Range Interpretation Comments Red Blood Count (test code = 789-8) 3.88 3.6-5.1 [facility] ChildrenHemoglobin2019-01-13 06:27:00* Test Item Value Reference Range Interpretation Comments Hemoglobin (test code = 83590-8) 12.6 12.0-16.0 [facility] ChildrenHematocrit2019-01-13 06:27:00* Test Item Value Reference Range Interpretation Comments Hematocrit (test code = 4544-3) 37.6 34.2-44.1 [facility] ChildrenMean Corpuscular Bbovbc6701-37-69 06:27:00* Test Item Value Reference Range Interpretation Comments Mean Corpuscular Volume (test code = 787-2) 96.9 81-99 [facility] ChildrenMean Corpuscular Eofnbqpyrh4609-95-87 06:27:00* Test Item Value Reference Range Interpretation Comments Mean Corpuscular Hemoglobin (test code = 785-6) 32.5 28-32 H [facility] ChildrenMe Corpuscular Hemoglobin Concent 2018-07-21 06:27:00* Test Item Value Reference Range Interpretation Comments Mean Corpuscular Hemoglobin Concent (test code = 786-4) 33.5 31-35 [facility] ChildrenRed Cell Distribution Rwquu5413-52-34 06:27:00* Test Item Value Reference Range Interpretation Comments Red Cell Distribution Width (test code = 20118-1) 12.3 11.7 -14.4 [facility] ChildrenPlatelet Rweyx6892-68-79 06:27:00* Test Item Value Reference Range Interpretation Comments Platelet Count (test code = 777-3) 265 140-360 [facility] ChildrenNeutrophils (%) (Auto)2018-07-21 06:27:00 * Test Item Value Reference Range Interpretation Comments Neutrophils (%) (Auto) (test code = 44080-5) 67.6 38.7-80.0 [facility] ChildrenLymphocytes (%) (Auto)2018-07-21 06:27:00 * Test Item Value Reference Range Interpretation Comments Lymphocytes (%) (Auto) (test code = 736-9) 17.6 18.0-39.1 L [facility] ChildrenMonocytes (%) (Auto)2018-07-21 06:27:00* Test Item Value Reference Range Interpretation Comments Monocytes (%) (Auto) (test code = 5905-5) 11.7 4.4-11.3 H [facility] ChildrenEosinophils (%) (Auto)2018-07-21 06:27:00 * Test Item Value Reference Range Interpretation Comments Eosinophils (%) (Auto) (test code = 713-8) 2.0 0.0-6.0 [facility] ChildrenBasophils (%) (Auto)2018-07-21 06:27:00* Test Item Value Reference Range Interpretation Comments Basophils (%) (Auto) (test code = 706-2) 0.8 0.0-1.0 [facility] ChildrenIM GRANULOCYTES %2018-07-21 06:27:00* Test Item Value Reference Range Interpretation Comments IM GRANULOCYTES % (test code = IM GRANULOCYTES %) 0.3 0.0- 1.0 [facility] ChildrenNeutrophils # (Auto)2018-07-21 06:27:00* Test Item Value Reference Range Interpretation Comments Neutrophils # (Auto) (test code = 751-8) 5.2 2.1-6.9 [facility] ChildrenLymphocytes # (Auto)2018-07-21 06:27:00* Test Item Value Reference Range Interpretation Comments Lymphocytes # (Auto) (test code = 89054-4) 1.3 1.0-3.2 [facility] ChildrenMonocytes # (Auto)2018-07-21 06:27:00* Test Item Value Reference Range Interpretation Comments Monocytes # (Auto) (test code = 742-7) 0.9 0.2-0.8 H [facility] ChildrenEosinophils # (Auto)2018-07-21 06:27:00* Test Item Value Reference Range Interpretation Comments Eosinophils # (Auto) (test code = 711-2) 0.2 0.0-0.4 [facility] ChildrenBasophils # (Auto)2018-07-21 06:27:00* Test Item Value Reference Range Interpretation Comments Basophils # (Auto) (test code = 704-7) 0.1 0.0-0.1 [facility] ChildrenAbsolute Immature Granulocyte (auto 2018-07-21 06:27:00* Test Item Value Reference Range Interpretation Comments Absolute Immature Granulocyte (auto (lionel t code = Absolute Immature Granulocyte (auto) 0.02 0-0.1 [facility] ChildrenUrine Random Immmrz6912-32-46 07:45:00* Test Item Value Reference Range Interpretation Comments Urine Random Sodium (test code = 2955-3) 38 [facility] ChildrenUrine Random Zdqkjp9725-81-34 07:45:00* Test Item Value Reference Range Interpretation Comments Urine Random Sodium (test code = 2955-3) 38 [facility] ChildrenUrine Random Vkdiyr1147-34-12 07:45:00* Test Item Value Reference Range Interpretation Comments Urine Random Sodium (test code = 2955-3) 38 [facility] ChildrenUrine Random Cixmmj2081-42-84 07:45:00* Test Item Value Reference Range Interpretation Comments Urine Random Sodium (test code = 2955-3) 38 [facility] ChildrenTotal Tyqripylp7442-09-09 06:14:00* Test Item Value Reference Range Interpretation Comments Total Bilirubin (test code = 1975-2) 0.5 0.2-1.2 [facility] ChildrenAspartate Amino Transf (AST/SGOT) 2018-07-20 06:14:00* Test Item Value Reference Range Interpretation Comments Aspartate Amino Transf (AST/SGOT) (test code = Aspartate Amino Transf (AST/SGOT)) 15 5-34 [facility] ChildrenAlanine Aminotransferase (ALT/SGPT) 2018-07-20 06:14:00* Test Item Value Reference Range Interpretation Comments Alanine Aminotransferase (ALT/SGPT) (test code = 1742-6) 11 0-55 [facility] Sfiooid9173-59-11 06:14:00* Test Item Value Reference Range Interpretation Comments Total Protein (test code = 2885-2) 5.7 6.5-8.1 L [facility] ChildrenAlbumin2019-01-12 06:14:00* Test Item Value Reference Range Interpretation Comments Albumin (test code = 1751-7) 3.2 3.5-5.0 L [facility] ChildrenGlobulin2019-01-12 06:14:00* Test Item Value Reference Range Interpretation Comments Globulin (test code = 98772-3) 2.5 2.3-3.5 [facility] ChildrenAlbumin/Globulin Xrfuh8756-68-28 06:14:00 * Test Item Value Reference Range Interpretation Comments Albumin/Globulin Ratio (test code = 1759-0) 1.3 0.8-2.0 [facility] ChildrenAlkaline Tndtyvwzzsp3525-84-05 06:14:00* Test Item Value Reference Range Interpretation Comments Alkaline Phosphatase (test code = 6768-6) 65 40-150 [facility] ChildrenUrine Ymmog8685-57-35 21:56:00* Test Item Value Reference Range Interpretation Comments Urine Color (test code = 5778-6) YELLOW YELLOW [facility] ChildrenUrine Sccwjsl1321-19-34 21:56:00* Test Item Value Reference Range Interpretation Comments Urine Clarity (test code = 57558-5) HAZY CLEAR [facility] ChildrenUrine Specific Pjfwiik9837-74-68 21:56:00 * Test Item Value Reference Range Interpretation Comments Urine Specific [place] (test code = 5811-5) 1.005 1.010-1.02 5 L [facility] ChildrenUrine vX7437-46-17 21:56:00* Test Item Value Reference Range Interpretation Comments Urine pH (test code = 18039-8) 6.5 5-7 [facility] ChildrenUrine Leukocyte Tetmegau2293-72-77 21:56:00* Test Item Value Reference Range Interpretation Comments Urine Leukocyte Esterase (test code = 5799-2) 1+ NEGATIVE H [facility] Duucdws3826-03-08 21:56:00* Test Item Value Reference Range Interpretation Comments Urine Nitrite (test code = 46464-0) NEGATIVE NEGATIVE [facility] ChildrenUrine Hmiaslh0734-83-85 21:56:00* Test Item Value Reference Range Interpretation Comments Urine Protein (test code = 5804-0) NEGATIVE NEGATIVE [facility] Glucose (UA)2018-07-19 21:56:00* Test Item Value Reference Range Interpretation Comments Urine Glucose (UA) (test code = 2349-9) 1+ NEGATIVE H [facility] ChildrenUrine [place]2438-99-87 21:56:00* Test Item Value Reference Range Interpretation Comments Urine Ketones (test code = 03982-2) NEGATIVE NEGATIVE [facility] ChildrenUrine Pxaxpfdtkykj4759-51-14 21:56:00* Test Item Value Reference Range Interpretation Comments Urine Urobilinogen (test code = 39214-5) 0.2 0.2-1 [facility] ChildrenUrine Richhyntk9918-55-37 21:56:00* Test Item Value Reference Range Interpretation Comments Urine Bilirubin (test code = 1978-6) NEGATIVE NEGATIVE [facility] ChildrenUrine Usweo2169-98-61 21:56:00* Test Item Value Reference Range Interpretation Comments Urine Blood (test code = 02954-1) TRACE NEGATIVE H [facility] ChildrenUrine NPL8326-34-06 21:56:00* Test Item Value Reference Range Interpretation Comments Urine WBC (test code = 5821-4) 11-20 0-5 H [facility] ChildrenUrine AGG4935-07-22 21:56:00* Test Item Value Reference Range Interpretation Comments Urine RBC (test code = 11593-3) 6-10 0-5 H [facility] ChildrenUrine Ytuzjxzx3438-29-89 21:56:00* Test Item Value Reference Range Interpretation Comments Urine Bacteria (test code = 71150-0) MODERATE NONE H [facility] ChildrenUrine Epithelial Vwqmr4953-11-11 21:56:00 * Test Item Value Reference Range Interpretation Comments Urine Epithelial Cells (test code = 19626-2) FEW NONE [facility] ChildrenCreatine Kinase XM9413-30-89 19:37:00* Test Item Value Reference Range Interpretation Comments Creatine Kinase MB (test code = 13167-2) 1.40 0-5.0 [facility] ChildrenTroponin L0728-59-21 19:37:00* Test Item Value Reference Range Interpretation Comments Troponin I (test code = YCI2502) < 0.001 0-0.300 [place] [facility] [facility] DE3303-02-08 19:37:00* Test Item Value Reference Range Interpretation Comments Creatine Kinase MB (test code = 00478-2) 1.40 0-5.0 [facility] ChildrenT[facility] R7193-50-64 19:37:00* Test Item Value Reference Range Interpretation Comments Troponin I (test code = VKQ3560) < 0.001 0-0.300 [facility] Children[facility] Natriuretic Rmojlam8606-22-75 19:33:00* Test Item Value Reference Range Interpretation Comments B-Type Natriuretic Peptide (test code = 99975-0) 29.9 0-100 [facility] Kirsbeu5159-58-73 19:33:00* Test Item Value Reference Range Interpretation Comments B-Type Natriuretic Peptide (test code = 41971-7) 29.9 0-100 [facility] Natri[facility]tic Puokqoa5287-28-84 19:33:00* Test Item Value Reference Range Interpretation Comments B-Type Natriuretic Peptide (test code = 10765-7) 29.9 0-100 [facility] Natriuretic Tsopsau7755-14-69 19:33:00* Test Item Value Reference Range Interpretation Comments B-Type Natriuretic Peptide (test code = 29918-1) 29.9 0-100 [facility] ChildrenAct[facility] Partial Thromboplast Time 2018-07-19 19:30:00* Test Item Value Reference Range Interpretation Comments Activated Partial Thromboplast Time (test code = 04123-2) 29.9 23.8-35.5 [facility] ChildrenAct[facility] Partial Thromboplast Time 2018-07-19 19:30:00* Test Item Value Reference Range Interpretation Comments Activated Partial Thromboplast Time (test code = 64024-0) 29.9 23.8-35.5 [facility] ChildrenCreatine Beahqt5981-84-99 19:29:00* Test Item Value Reference Range Interpretation Comments Creatine Kinase (test code = 2157-6) 123 29-168 [facility] ChildrenCreatine Gdxqip4069-45-41 19:29:00* Test Item Value Reference Range Interpretation Comments Creatine Kinase (test code = 2157-6) 123 29-168 [facility] ChildrenProthrombin Hfrt9613-89-40 19:28:00* Test Item Value Reference Range Interpretation Comments Prothrombin Time (test code = 5902-2) 12.3 11.9-14.5 [facility] ChildrenProthromb Time International Ratio 2018-07-19 19:28:00* Test Item Value Reference Range Interpretation Comments Prothromb Time International Ratio (test code = 6301-6) 0.84 Oral Anticoagulant Therapy INR Values:1. Low Intensity Therapy 1.5 - 2.02 . Moderate Intensity Therapy 2.0 - 3.03. High Intensity Therapy(1) 2.5 - 3. 54. High Intensity Therapy(2) 3.0 - 4.05. Panic Value INR > 5.0 [facility] ChildrenProthrombin Ydiw7307-44-86 19:28:00* Test Item Value Reference Range Interpretation Comments Prothrombin Time (test code = 5902-2) 12.3 11.9-14.5 [facility] ChildrenProthromb Time International Ratio 2018-07-19 19:28:00* Test Item Value Reference Range Interpretation Comments Prothromb Time International Ratio (test code = 6301-6) 0.84 Oral Anticoagulant Therapy INR Values:1. Low Intensity Therapy 1.5 - 2.02 . Moderate Intensity Therapy 2.0 - 3.03. High Intensity Therapy(1) 2.5 - 3. 54. High Intensity Therapy(2) 3.0 - 4.05. Panic Value INR > 5.0 [facility] ChildrenCHEST SINGLE (PORTABLE)2018-07-19 18:37:00 [facility] [address] [address] Patient Name: SHARLENE MOORE MR #: [id number] : 1935 Age/Sex: 83/F Req #: [id number] Adm Physician: Ordered by: STELLA FUNES MD Report #: [id number] Location: ER Room/Bed: Procedure: [id number] DX /CHEST SINGLE (PORTABLE) Exam Date: 07/19/18 [...] PM Dictated By: CESIA ADAM MD, MD 38 Transcribed By: JOHN on 07/19/18 1838 COPY TO: STELLA FUNES MD CT ABDOMEN/PELVIS T8466-63-65 14:47:[address] [address] Patient Name: SHARLENE MOORE MR #: [id number] : 1935 Age/Sex: 83/F Req #: [id number] Adm Physician: Ordered by: LIGIA WEST DO Report #: [id number] Location: CT Room/Bed: Procedure: [id number] CT/C T ABDOMEN/PELVIS W Exam Date: 07/16/18 Exam Time: 14 30 REPORT STATUS: Signed EXAM: C T Abdomen and Pelvis WITH contrast INDICATION: [id number] LOWER ABD PAIN/DIVERTICULOSIS COMPARISON: None. TECHNIQUE: [...] COPY TO: LIGIA WEST DO Blood Urea Reowcqlv5550-36-74 14:19:00* Test Item Value Reference Range Interpretation Comments Blood Urea Nitrogen (test code = 3094-0) 8 7-26 [facility] ChildrenCreatinine2019-01-08 14:19:00* Test Item Value Reference Range Interpretation Comments Creatinine (test code = 2160-0) 0.80 0.57-1.11 [facility] ChildrenBUN/Creatinine Nptpf7029-88-23 14:19:00* Test Item Value Reference Range Interpretation Comments BUN/Creatinine Ratio (test code = 3097-3) 10 12-31 [facility]Estim[facility] Glomerular Filtration Rate 2018-07-16 14:19:00* Test Item Value Reference Range Interpretation Comments Estimat Glomerular Filtration Rate (test code = 942180461) > 60 >60 Ranges were taken from the National Kidney Disease Education Program and the [facility] Kidney Foundation literature.Reference ranges:60 or greater: Smxxve96-76 ( for 3 consecutive months): Chronic kidney disease 15 or less: Kidney failureCHI [facility] Katy HospitalBEDSIDE GLUCOSE VHGNGIL8571-56-42 16:41:89442 [facility] HermannBEDSIDE GLUCOSE GABUOUR6255-07-80 13:05:11610Xqaupmen [place] BEDSIDE GLUCOSE HCKUUBH3039-11-84 21:21:60978Nqxlqzge CxrgcwuJVWRWGJAF0563-64-13 10:07:0012.3[facility] XqnrqmnQNDEDMNCD8810-09-39 10:07:000.6[facility] BNSZTOWZU7546-32-60 10:07:62599Fhnkggex WiuxscjZMKHXWBWN4984-35-48 10:07:004.3 [facility] LuaflzxMNCOQEDOK8044-05-41 10:07:007.6[facility] HermannCHEMISTRY 2011-08-25 10:07:0028[facility] PkaxzzeZOUKFULRY1169-20-70 10:07:61251Mbcrqogc IcgnsduLKWALEDOH7368-01-96 10:07:005[facility] EkfeyfmCUPKSKFHW5474-43-10 10:07:00 131[facility] HobdalaLTYHFVHDVC9040-08-41 10:07:0010.9[facility] HermannHEMATOLOGY 2011-08-25 10:07:003.48[facility] VtazhaiCXMRIIMIHZ9525-62-45 10:07:007.1[facility] AfbbsuiRRHUNYZVRN9844-56-76 10:07:0013.9[facility] OumqtbbEKBXVHDETZ3304-13-34 10:07:0033.5[facility] MpzcucqORGWFBMURK8076-09-98 10:07:00* Test Item Value Reference Range Interpretation Comments MCH (test code = MCH) 31.5 pg 27.0-31.0 H [facility] PnayoadMVVNPLJYBA5131-53-04 10:07:0094.0[facility] HermannHEMATOLOGY 2011-08-25 10:07:0032.7[facility] HdfzguiKHTSJDREUF8835-31-72 10:07:009.3[facility] MyfzvkfXMQXDBURHK8711-82-72 10:07:65761Rhiiffff SwmzxihRYYDWKQOHG7132-70-77 10:07:000.0[facility] CcbzrixIEOFBFARZC4318-84-05 10:07:00Normal (08/25/2011 04:07:00) [facility] NwcbewzNQSHWWJYOQ1442-87-78 10:07:00Normal (08/25/2011 04:07:00) [facility] MfkvfajIUPMVOLHWZ2703-25-09 10:07:00* Test Item Value Reference Range Interpretation Comments Tot Cell Ct (test code = Tot Cell Ct) 100 1 [facility] UfnyxvfPBBUHZFCRU9553-27-54 10:07:005.0[facility] HermannHEMATOLOGY 2011-08-25 10:07:000.0[facility] GsctnqqITUCTSCZDD7491-01-10 10:07:000.0[facility] KlishxlQKDIIIDZLL3491-44-51 10:07:0026.0[facility] OuekljeUJFPTCLZGB0419-81-17 10:07:004.9[facility] AogvcpsADCTXHQAWV6734-66-34 10:07:000.4[facility] [place] GMGAZZFUOC1660-40-77 10:07:000.0[facility] LcgyahwXFOKUNRFDW4009-54-97 10:07:001.8 [facility] GhsdqacGRVWYXEZMC7571-70-64 10:07:0069.0[facility] HermannCHEMISTRY 2011-08-24 10:20:0013.3[facility] QpurrfzESIZZVBUC5287-14-84 10:20:30875Hhxctwzl HepqahfKGKVYQCRH6325-73-44 10:20:0026[facility] JvicivsHIDBGPAFT0388-33-97 10:20:007.8[facility] FvvdkbyASCKPBRKU9873-74-17 10:20:004.3[facility] [place] VNKJOZCBD4572-37-27 10:20:54770Pzxtvgmu MiafeaeHKJZMMNIW5768-09-35 10:20:008 [facility] TcdfppuSCGZCSIQM9946-38-77 10:20:88609Ztcruzcm HermannCHEMISTRY 2011-08-24 10:20:000.7[facility] YenqabbMEWZFUAJUB9465-88-62 10:20:007.4[facility] GfxgihwVYLOCINXQD8843-69-85 10:20:000.7[facility] LenmtvrAYSOBUGGQN3842-62-89 10:20:000.7[facility] XjhnnmpQSUXBKGYQK7578-87-38 10:20:000.0[facility] [place] INFZPXFGXJ6957-34-94 10:20:000.0[facility] OnbiqtlMTSFNXNRUO8171-92-90 10:20:000.0 [facility] VtrbdguFKKKJXVBQU3981-43-31 10:20:0084.5[facility] HermannHEMATOLOGY 2011-08-24 10:20:007.8[facility] FxfvhctOYCFFGYTBU6771-60-79 10:20:000.0[facility] PurxriaQGIHVWPAVQ1924-30-65 10:20:007.7[facility] XecodraXDEOZVUJPD4305-89-88 10:20:0034.5[facility] YvqwvlzRFXHXSWKKD9683-75-72 10:20:0013.2[facility] FOLKACAXHK8354-76-11 10:20:008.7[facility] QnntavrVBGTQZMZWN8824-49-51 10:20:00 93.3[facility] SqbkqkzWGPBWMLCRS8466-25-43 10:20:00* Test Item Value Reference Range Interpretation Comments MCH (test code = MCH) 32.2 pg 27.0-31.0 H [facility] TzoxukvGUHAWJCTCI9803-79-61 10:20:0033.1[facility] HermannHEMATOLOGY 2011-08-24 10:20:003.55[facility] WahvbgpKGCJISRYCJ3951-75-78 10:20:0011.4[facility] SbipfvpJAJOACJVTT1355-37-71 10:20:90849Qiippyvh QkanljoWUCOLAFGES9322-22-44 10:20:009.2[facility] AurmrvdHUODCITFV4390-89-39 17:20:0024[facility] [place] QYAFWVWJT7376-93-98 17:20:007.5[facility] GeejclnSLDALMWWQ7528-24-39 17:20:003.8 [facility] ZwlbyuwPCEYUOWGQ6568-77-99 17:20:0095[facility] HermannCHEMISTRY 2011-08-21 17:20:000.3[facility] AtwkpcbZMQAJJXSN5556-24-07 17:20:0016[facility] XvqjbnfPBNKZUVWJ7810-92-63 17:20:008.4[facility] SjaheduMZRJYMQHH2672-58-90 17:20:0027[facility] EbspjhzWNGITQXGA9701-31-69 17:20:003.8[facility] [place] WYFKJYQGF5925-04-21 17:20:37676Ngpslgxc VvmrdxnUKONISXRA8667-54-92 17:20:0013 [facility] JxluiftRWMEPLUZO3972-96-54 17:20:64600Vchtaami HermannCHEMISTRY 2011-08-21 17:20:000.6[facility] CpaaluvDHYVMQXST0243-32-67 17:20:12693Uygntvlb ZqvzwmtEGTTAABYA4735-97-15 17:20:003.7[facility] PzhlnokHOCZRVLFQ3145-32-52 17:20:001.0[facility] VnmvyhzPMTITTKBV9383-90-60 17:20:0022[facility] [place] PGTCIMOGB6884-90-24 17:20:0013.8[facility] WcgukusJKKAIKJNCH7633-93-25 17:20:00* Test Item Value Reference Range Interpretation Comments PTT (test code = PTT) 30.3 s 22.9-35.8 N [facility] PnulenyPZDVZWFGII2521-60-64 17:20:00* Test Item Value Reference Range Interpretation Comments PT (test code = PT) 11.8 s 12.0-14.7 L [facility] OrhznnuKUQTSFBVWN7934-49-07 17:20:000.86[facility] HermannHEMATOLOGY 2011-08-21 17:20:009.3[facility] YrbathrEXUCRNKHPT4586-23-10 17:20:0013.0[facility] GsmykypTDOCQHLXJV1433-76-61 17:20:42210Jiyzppcg HjahmblFDDERWTYNY6128-02-77 17:20:0036.6[facility] TvolmtkPAEMQUSXEM4991-50-67 17:20:0034.6[facility] [place] HGKUUCWMMK5527-69-63 17:20:0092.3[facility] ZtejsqhKMBTPQPEMT2947-42-96 17:20:00 12.6[facility] XmeaifiRCXENMEQTZ2798-49-20 17:20:00* Test Item Value Reference Range Interpretation Comments MCH (test code = MCH) 31.9 pg 27.0-31.0 H [facility] MqcsvffKHLRGAOAGV7127-48-11 17:20:003.96[facility] HermannHEMATOLOGY 2011-08-21 17:20:005.5[facility] YmevbgpNKFAYHIGSB4153-84-52 17:20:000.0[facility] ZelyqvxTDFBDANTJX1591-17-94 17:20:001.0[facility] LtudelnGKDZRLQZRA7753-47-24 17:20:000.3[facility] JqqxnxdSSFYXUIEDK0307-02-10 17:20:005.3[facility] KRGOXSIJUI1130-10-94 17:20:003.7[facility] WgifcvsQGIMFBBWLG3157-38-80 17:20:000.4 [facility] GenfcllIAVSPTWSHT0551-24-15 17:20:000.9[facility] HermannHEMATOLOGY 2011-08-21 17:20:007.6[facility] TsddihxQHORUXTJZS9527-04-83 17:20:0018.7[facility] CpnagnfSKNMYHGDGW7765-18-74 17:20:0067.5[facility] HggyminIHJBNJSVO3318-27-12 02:55:00* Test Item Value Reference Range Interpretation Comments CK MB Index (test code = CK MB Index) 0.7 1 <=2.5 N [facility] XxkpkqgCQLKPTVWZ6793-58-54 02:55:000.6[facility] HermannCHEMISTRY 2011-05-23 02:55:0090.0[facility] JjphwalMDGIASQQO5101-88-02 02:55:00<0.02[facility] GnyzmfvOPSENAZUG5920-79-34 02:55:0088.0[facility] KwcoukoBDUVRNCHT2129-39-72 02:55:00* Test Item Value Reference Range Interpretation Comments A/G Ratio (test code = A/G Ratio) 1.0 1 0.7-1.6 N [facility] KmbkvjtDZELGAGIO5093-93-72 02:55:0025.0[facility] HermannCHEMISTRY 2011-05-23 02:55:000.4[facility] OauubtzSPLVUASQU5906-87-57 02:55:008.9[facility] PyyzckrFEBSTYEOX6103-90-73 02:55:00* Test Item Value Reference Range Interpretation Comments B/C Ratio (test code = B/C Ratio) 18.0 1 6-25 N [facility] LvycrccTELEWUMVD6539-77-48 02:55:004.2[facility] HermannCHEMISTRY 2011-05-23 02:55:38441.0[facility] ExmshfsYOUBMVTUY6679-55-25 02:55:0011.0[facility] VmemhpcWOXRAXXVD4504-69-48 02:55:000.6[facility] LwtgybsKRSGQOGFN6953-88-12 02:55:95610.0[facility] VixrhfhOVHHCOFVO9503-19-52 02:55:0032.0[facility] ISCKHWIOR4138-81-08 02:55:85390.0[facility] EaizdxyKUJPABBYP9450-84-01 02:55:003.9 [facility] ZagcvvsMNYQYTKZA2021-85-28 02:55:009.3[facility] HermannCHEMISTRY 2011-05-23 02:55:008.5[facility] SoewcbeIKZXORBYI6248-29-16 02:55:0075.0[facility] KzhgxkhKMUTYJVHL7486-24-89 02:55:004.3[facility] VtrbuafGVYDPFNTW5135-51-14 02:55:0031.0[facility] ZaiwttzENGZEIXZFC7322-56-67 02:55:000.5[facility] MLOGCCRDSO4494-27-66 02:55:000.3[facility] IzshhvcDEYXSFXUPY8041-44-28 02:55:001.7 [facility] XfkgzhuHQIYELRBLE2178-55-20 02:55:004.3[facility] HermannHEMATOLOGY 2011-05-23 02:55:004.4[facility] HevqhjwYJZCCZXVTL1069-79-82 02:55:000.9[facility] FxzulyfTNIZWPIBJP0148-94-43 02:55:006.8[facility] CnfwnpwEZXMWZXMGX0712-29-00 02:55:0024.8[facility] StmheasFCURDNIYRC8130-85-83 02:55:0063.2[facility] RIUKABXMJW3942-89-45 02:55:000.1[facility] QolnuklYXCFRCQDUK5630-50-25 02:55:009.4 [facility] NpyvtnlCSLWFPMTKD8275-29-11 02:55:13243.0[facility] HermannHEMATOLOGY 2011-05-23 02:55:0013.2[facility] BtjohzeVNGPSMTFNP0821-22-41 02:55:00* Test Item Value Reference Range Interpretation Comments MCH (test code = [facility]) 32.1 pg 27.0-31.0 H [facility] AmczisnAYPYNMZQKN3144-28-85 02:55:0034.5[facility] HermannHEMATOLOGY 2011-05-23 02:55:0092.9[facility] RfvqhemYTTAFAZSCI7775-17-69 02:55:0013.3[facility] CpjyfzxNOWWPGGPKD2255-37-83 02:55:0038.4[facility] EuqlswkECAKVIMCJB0951-46-01 02:55:004.14[facility] KkqdhstSQBZADLVMI6420-95-08 02:55:006.9[facility] [place] SWIJOBEJPZ3500-31-24 01:40:00Negative (05/22/2011 19:40:00) ??[facility] SDKMJXATSC4036-10-38 01:40:00None Seen (05/22/2011 19:40:00) ??[facility] [place] PHOXGVLAXB3529-50-73 01:40:00Trace *ABN*(05/22/2011 19:40:00) ??[facility] [place] SAQMEPGOEP9771-88-04 01:40:00None Seen (05/22/2011 19:40:00) ??[facility] BNJMWARWQJ0086-34-70 01:40:003-5 /HPF (05/22/2011 19:40:00) ??[facility] YPLTPNKLHT4449-10-91 01:40:00Negative *NA*(05/22/2011 19:40:00) ??[facility] PhqyfwoEUJDYWVCFX4029-85-78 01:40:00Negative *NA*(05/22/2011 19:40:00) ?? [facility] MfpolhwTNLMYQHRWN0891-86-40 01:40:00Negative (05/22/2011 19:40:00) ?? [facility] GxodgihUTNEGFUXEV8200-90-13 01:40:000.2[facility] HermannURINALYSIS 2011-05-23 01:40:00None Seen (05/22/2011 19:40:00) ??[facility] HermannURINALYSIS 2011-05-23 01:40:00Negative (05/22/2011 19:40:00) ??[facility] HermannURINALYSIS 2011-05-23 01:40:00* Test Item Value Reference Range Interpretation Comments UA pH (test code = UA pH) 6.0 1 5.0-8.0 N [facility] ZxlienlFFMRPJEUAK1638-99-07 01:40:00Negative (05/22/2011 19:40:00) ?? [facility] ZoprekwQVXFMODHEN7631-21-88 01:40:00Clear (05/22/2011 19:40:00) ?? [facility] OitaiohLKDKPXMKKL1064-82-71 01:40:00* Test Item Value Reference Range Interpretation Comments UA Spec Grav (test code = UA Spec Grav) 1.01 1 N [facility] GvqzkniXCWBWJJKJS1592-25-00 01:40:00Yellow *NA*(05/22/2011 19:40:00) ?? [facility]annUS RENAL RETROPERITONEAL COMP [address] [place] [address] Patient Name: SHARLENE MOORE MR #: [id number] : 1935 Age/Sex: 82/F Req #: [id number] Adm Physician: Ordered by: JILLIAN RINCON MD Report #: [id number] Location: US Room/Bed: Procedure: [id number] US/US RENAL RETROPERITONEAL COMP Exam Date: Exam Time: REPORT STATUS: S igned PROCEDURE: US RETROPERITONEAL ( KIDNEY ). COMPARISON: Patient s [facility], US, US ABDOMEN COMPLETE, 05/24/2016, 10:15. [...] ALIN on 11/28/17 1320 COPY TO: JILLIAN RINCNO MD
[2020-04-15 20:00] LABS: BILIRUBIN,URINE NEGATIVE (NEGATIVE); CLARITY,URINE CLEAR (CLEAR); COLOR,URINE YELLOW (YELLOW); KETONES,URINE NEGATIVE (NEGATIVE); LEUKOCYTE ESTERASE ,URINE TRACE (NEGATIVE); NITRITE,URINE NEGATIVE (NEGATIVE); PROTEIN,URINE DIPSTICK NEGATIVE (NEGATIVE); URINE UROBILINOGEN 0.2 mg/dL (0.2 - 1)
[2020-04-15 20:16] LABS: WBC,URINE (MAN) 0-5 /HPF (0-5)
== END 2020-04-15 20:59 | disposition home or self-care (01) ==
LOC: ER 17:31
DX: R10.32 Left lower quadrant pain (principal); K57.90 Diverticulosis of intestine, part unspecified, without perforation or abscess without bleeding; K76.0 Fatty (change of) liver, not elsewhere classified
CPT/HCPCS: 36415; 74177; 80053; 81001; 82150; 83690; 84484; 85025; 93005; 99284; J2405; J3010; Q9967

== ENCOUNTER 2020-07-28 21:46 | Emergency (ER) | payer MEDICARE, OTHER ==
[~2020-07-28] VITALS: Ht 149.9 cm; Wt 52.2 kg
[2020-07-28] MEDS ORDERED: PANTOPRAZOLE 40 MG 10ML VIAL IV STA (22:16)
[2020-07-28 22:24] LABS: BASOPHILS # (AUTO) 0.1 (0.0-0.1); BASOPHILS % 0.9 % (0.0-1.0); EOSINOPHILS # (AUTO) 0.1 (0.0-0.4); EOSINOPHILS % 1.6 % (0.0-6.0); HEMATOCRIT 36.1 % (34.2-44.1); HEMOGLOBIN 12.1 g/dL (12.0-16.0); LYMPHOCYTES # (AUTO) 1.4 (1.0-3.2); LYMPHOCYTES % 19.9 % (18.0-39.1); MEAN CORPUSCULAR HEMOGLOBIN 31.8 pg (28-32); MEAN CORPUSCULAR HGB CONC 33.5 g/dL (31-35); MONOCYTES # (AUTO) 0.7 (0.2-0.8); MONOCYTES % 9.7 % (4.4-11.3); NEUTROPHILS # (AUTO) 4.7 (2.1-6.9); NEUTROPHILS % 67.8 % (38.7-80.0); PLATELET COUNT 258 x10e3/uL (140-360); RED CELL DISTRIBUTION WIDTH 13.2 % (11.7-14.4)
[2020-07-28 22:40] LABS: CLARITY,URINE SL CLOUDY (CLEAR); COLOR,URINE YELLOW (YELLOW); KETONES,URINE NEGATIVE (NEGATIVE); LEUKOCYTE ESTERASE ,URINE MODERATE (NEGATIVE); NITRITE,URINE NEGATIVE (NEGATIVE); PROTEIN,URINE DIPSTICK NEGATIVE (NEGATIVE); URINE UROBILINOGEN 0.2 mg/dL (0.2 - 1)
[2020-07-28 22:41] LABS: ALANINE AMINOTRANSFERASE 13 IU/L (0-55); ALBUMIN 4.2 g/dL (3.5-5.0); ALBUMIN/GLOBULIN RATIO 1.2 (0.8-2.0); ALKALINE PHOSPHATASE 75 IU/L (40-150); BLOOD UREA NITROGEN 13 mg/dL (7-26); BUN/CREATININE RATIO 18 (6-25); CALCIUM 8.9 mg/dL (8.4-10.2); CARBON DIOXIDE 23 mmol/L (22-29); CHLORIDE 101 mmol/L (98-107); CREATINE KINASE 51 IU/L (29-168); CREATININE, SERUM 0.71 mg/dL (0.57-1.11); EST GLOMERULAR FILTRATION RATE > 60 ML/MIN (60-); GLUCOSE 105 mg/dL (74-118); SODIUM 134 mmol/L (136-145)
[2020-07-28 22:46] LABS: AMYLASE 42 U/L (25-125); LIPASE 11 U/L (8-78)
[2020-07-28 22:48] LABS: BACTERIA,URINE MODERATE /HPF; EPITHELIAL CELLS,URINE FEW /LPF
[2020-07-29] MEDS ORDERED: SODIUM CHLORIDE 0.9% 50ML 50 ML ONE (07:03)
[2020-07-29] MEDS ORDERED: IOPAMIDOL 370 MG/ML 200 ML INFUS..BTL INJ ONE (07:03)
== END 2020-07-29 00:42 | disposition home or self-care (01) ==
LOC: ER 22:23
DX: R10.10 Upper abdominal pain, unspecified (principal); N39.0 Urinary tract infection, site not specified; K57.90 Diverticulosis of intestine, part unspecified, without perforation or abscess without bleeding; I10 Essential (primary) hypertension; E11.9 Type 2 diabetes mellitus without complications
CPT/HCPCS: 36415; 74177; 80053; 81001; 82150; 82550; 82553; 83690; 84484; 85025; 93005; 99284; C9113; Q9967

== ENCOUNTER 2020-08-02 20:35 | Emergency (ER) | payer MEDICARE, OTHER ==
[~2020-08-02] VITALS: Ht 149.9 cm; Wt 52.2 kg
[2020-08-02 21:07] LABS: CLARITY,URINE CLEAR (CLEAR); COLOR,URINE YELLOW (YELLOW); KETONES,URINE NEGATIVE (NEGATIVE); LEUKOCYTE ESTERASE ,URINE SMALL (NEGATIVE); NITRITE,URINE NEGATIVE (NEGATIVE); PROTEIN,URINE DIPSTICK NEGATIVE (NEGATIVE)
[2020-08-02 21:08] LABS: URINE UROBILINOGEN 0.2 mg/dL (0.2 - 1)
[2020-08-02 21:18] LABS: BACTERIA,URINE RARE /HPF; EPITHELIAL CELLS,URINE FEW /LPF; RBC,URINE 0-5 /HPF (0-5); WBC,URINE (MAN) 0-5 /HPF (0-5)
== END 2020-08-02 21:40 | disposition home or self-care (01) ==
LOC: ER 20:49
DX: R10.30 Lower abdominal pain, unspecified (principal); N39.0 Urinary tract infection, site not specified; I10 Essential (primary) hypertension; E11.9 Type 2 diabetes mellitus without complications; Z87.19 Personal history of other diseases of the digestive system
CPT/HCPCS: 81001; 87086; 99283

== ENCOUNTER → 2020-08-19 | Day surgery (SDC) | payer MEDICARE, OTHER ==
[2020-08-16 10:32] LABS: BASOPHILS # (AUTO) 0.1 (0.0-0.1); EOSINOPHILS # (AUTO) 0.1 (0.0-0.4); EOSINOPHILS % 0.9 % (0.0-6.0); HEMATOCRIT 39.2 % (34.2-44.1); HEMOGLOBIN 12.7 g/dL (12.0-16.0); LYMPHOCYTES # (AUTO) 0.9 (1.0-3.2); LYMPHOCYTES % 11.5 % (18.0-39.1); MEAN CORPUSCULAR HEMOGLOBIN 31.4 pg (28-32); MEAN CORPUSCULAR HGB CONC 32.4 g/dL (31-35); MEAN CORPUSCULAR VOLUME 96.8 fL (81-99); MONOCYTES # (AUTO) 0.6 (0.2-0.8); MONOCYTES % 6.9 % (4.4-11.3); NEUTROPHILS # (AUTO) 6.4 (2.1-6.9); NEUTROPHILS % 79.2 % (38.7-80.0); PLATELET COUNT 286 x10e3/uL (140-360); RED BLOOD COUNT 4.05 x10e6/uL (3.6-5.1); RED CELL DISTRIBUTION WIDTH 12.7 % (11.7-14.4)
[~2020-08-19] MED LIST changes: +BENTYL10 MG/1 ML PO; +CARAFATE1 GM PO; +FENTANYL CITRATE/PF 100MCG/2 ML INJ ONE; +GLUCAGON FOR INJ 1 MG VIAL ONE; +LIDOCAINE HCL 2% LOCAL INJ 5 ML SDV VIAL INJ ONE; +PROPOFOL IV EMULSION 10 MG/ML 20 ML VIAL ONE; +PROTONIX20 MG PO
[2020-08-19 09:55] VITALS: BP 171/80
== END | disposition home or self-care (01) ==
LOC: OR 06:04
PROVIDERS: ATTEND Internal Medicine Gastroenterology
DX: K29.50 Unspecified chronic gastritis without bleeding (principal); D12.8 Benign neoplasm of rectum; K31.7 Polyp of stomach and duodenum; K22.70 Barrett's esophagus without dysplasia; K31.89 Other diseases of stomach and duodenum; K59.00 Constipation, unspecified; K20.90 Esophagitis, unspecified without bleeding; K57.30 Diverticulosis of large intestine without perforation or abscess without bleeding; K64.8 Other hemorrhoids; I10 Essential (primary) hypertension; E11.9 Type 2 diabetes mellitus without complications; G89.4 Chronic pain syndrome; N39.0 Urinary tract infection, site not specified; N89.8 Other specified noninflammatory disorders of vagina; Z88.6 Allergy status to analgesic agent; Z88.1 Allergy status to other antibiotic agents; Z01.812 Encounter for preprocedural laboratory examination; Z20.822 Contact with and (suspected) exposure to COVID-19; Z79.84 Long term (current) use of oral hypoglycemic drugs
CPT/HCPCS: 36415 ×2; 43239; 45380; 82948; 85025; J1610; J2001; J2704; J3010; U0002; 45378; 45384

== ENCOUNTER 2020-08-27 21:54 | Emergency (ER) | payer MEDICARE, OTHER ==
[~2020-08-27] VITALS: Ht 149.9 cm; Wt 52.2 kg
[~2020-08-27 21:54] MED LIST changes: -FENTANYL CITRATE/PF 100MCG/2 ML INJ ONE; -GLUCAGON FOR INJ 1 MG VIAL ONE; -LIDOCAINE HCL 2% LOCAL INJ 5 ML SDV VIAL INJ ONE; -PROPOFOL IV EMULSION 10 MG/ML 20 ML VIAL ONE
[2020-08-27 22:38] LABS: ALANINE AMINOTRANSFERASE 13 IU/L (0-55); ALBUMIN 4.1 g/dL (3.5-5.0); ALBUMIN/GLOBULIN RATIO 1.2 (0.8-2.0); ALKALINE PHOSPHATASE 91 IU/L (40-150); ANION GAP 13.8 mmol/L (8-16); BLOOD UREA NITROGEN 13 mg/dL (7-26); BUN/CREATININE RATIO 17 (6-25); CALCIUM 9.1 mg/dL (8.4-10.2); CARBON DIOXIDE 24 mmol/L (22-29); CHLORIDE 100 mmol/L (98-107); CLARITY,URINE SL CLOUDY (CLEAR); COLOR,URINE YELLOW (YELLOW); CREATINE KINASE 55 IU/L (29-168); CREATININE, SERUM 0.76 mg/dL (0.57-1.11); EST GLOMERULAR FILTRATION RATE > 60 ML/MIN (60-); GLUCOSE 106 mg/dL (74-118); KETONES,URINE NEGATIVE (NEGATIVE); LEUKOCYTE ESTERASE ,URINE SMALL (NEGATIVE); NITRITE,URINE NEGATIVE (NEGATIVE); POTASSIUM 3.8 mmol/L (3.5-5.1); PROTEIN,URINE DIPSTICK NEGATIVE (NEGATIVE); SODIUM 134 mmol/L (136-145); URINE UROBILINOGEN 0.2 mg/dL (0.2 - 1)
[2020-08-27 22:39] LABS: BASOPHILS # (AUTO) 0.1 (0.0-0.1); BASOPHILS % 0.8 % (0.0-1.0); EOSINOPHILS # (AUTO) 0.1 (0.0-0.4); EOSINOPHILS % 1.3 % (0.0-6.0); HEMOGLOBIN 12.5 g/dL (12.0-16.0); LYMPHOCYTES # (AUTO) 1.2 (1.0-3.2); LYMPHOCYTES % 19.1 % (18.0-39.1); MEAN CORPUSCULAR HEMOGLOBIN 32.4 pg (28-32); MEAN CORPUSCULAR HGB CONC 33.8 g/dL (31-35); MEAN CORPUSCULAR VOLUME 95.9 fL (81-99); MONOCYTES # (AUTO) 0.6 (0.2-0.8); NEUTROPHILS # (AUTO) 4.3 (2.1-6.9); NEUTROPHILS % 68.5 % (38.7-80.0); PLATELET COUNT 249 x10e3/uL (140-360); RED BLOOD COUNT 3.86 x10e6/uL (3.6-5.1); RED CELL DISTRIBUTION WIDTH 12.5 % (11.7-14.4)
[2020-08-27 22:51] LABS: BACTERIA,URINE FEW /HPF; EPITHELIAL CELLS,URINE MODERATE /LPF; RBC,URINE 0-5 /HPF (0-5)
== END 2020-08-28 00:27 | disposition home or self-care (01) ==
LOC: ER 22:00
DX: I10 Essential (primary) hypertension (principal); N39.0 Urinary tract infection, site not specified; R51.9 Headache, unspecified; R19.7 Diarrhea, unspecified; E11.9 Type 2 diabetes mellitus without complications; Z87.19 Personal history of other diseases of the digestive system
CPT/HCPCS: 36415; 71046; 80053; 81001; 82550; 82553; 84484; 85025; 93005; 99284

== ENCOUNTER 2020-10-08 15:20 | Emergency (ER) | payer MEDICARE, OTHER ==
[~2020-10-08] VITALS: Ht 149.9 cm; Wt 52.2 kg
[2020-10-08] MEDS ORDERED: ULTRAM 50MG50 MG PO (15:44)
== END 2020-10-08 16:00 | disposition home or self-care (01) ==
LOC: ER 15:38
DX: G89.29 Other chronic pain (principal); M79.10 Myalgia, unspecified site; I10 Essential (primary) hypertension; E11.9 Type 2 diabetes mellitus without complications
CPT/HCPCS: 99282

== ENCOUNTER → 2020-10-13 | Outpatient (CLI) | payer MEDICARE, OTHER | LOC: US 07:17 | PROVIDERS: ATTEND Urology | DX: N39.0 Urinary tract infection, site not specified (principal) | CPT/HCPCS: 76700; 76856 ==

== ENCOUNTER 2020-10-14 15:46 | Emergency (ER) | payer MEDICARE, OTHER ==
[~2020-10-14] VITALS: Ht 157.5 cm; Wt 72.6 kg
[2020-10-14 16:26] LABS: BASOPHILS # (AUTO) 0.1 (0.0-0.1); BASOPHILS % 0.7 % (0.0-1.0); EOSINOPHILS # (AUTO) 0.1 (0.0-0.4); HEMATOCRIT 39.5 % (34.2-44.1); HEMOGLOBIN 13.3 g/dL (12.0-16.0); LYMPHOCYTES # (AUTO) 1.1 (1.0-3.2); LYMPHOCYTES % 16.3 % (18.0-39.1); MEAN CORPUSCULAR HEMOGLOBIN 31.7 pg (28-32); MEAN CORPUSCULAR HGB CONC 33.7 g/dL (31-35); MEAN CORPUSCULAR VOLUME 94.3 fL (81-99); MONOCYTES # (AUTO) 0.6 (0.2-0.8); NEUTROPHILS # (AUTO) 5.1 (2.1-6.9); NEUTROPHILS % 73.6 % (38.7-80.0); PLATELET COUNT 269 x10e3/uL (140-360); RED BLOOD COUNT 4.19 x10e6/uL (3.6-5.1); RED CELL DISTRIBUTION WIDTH 12.4 % (11.7-14.4)
[2020-10-14 16:28] LABS: CLARITY,URINE CLEAR (CLEAR); COLOR,URINE YELLOW (YELLOW); KETONES,URINE NEGATIVE (NEGATIVE); LEUKOCYTE ESTERASE ,URINE SMALL (NEGATIVE); NITRITE,URINE NEGATIVE (NEGATIVE); PROTEIN,URINE DIPSTICK NEGATIVE (NEGATIVE); URINE UROBILINOGEN 0.2 mg/dL (0.2 - 1)
[2020-10-14 16:39] LABS: RBC,URINE 0-5 /HPF (0-5)
[2020-10-14 16:42] LABS: ALANINE AMINOTRANSFERASE 18 IU/L (0-55); ALBUMIN 4.3 g/dL (3.5-5.0); ALBUMIN/GLOBULIN RATIO 1.1 (0.8-2.0); ALKALINE PHOSPHATASE 90 IU/L (40-150); ANION GAP 14.2 mmol/L (8-16); BLOOD UREA NITROGEN 16 mg/dL (7-26); BUN/CREATININE RATIO 21 (6-25); CALCIUM 9.3 mg/dL (8.4-10.2); CARBON DIOXIDE 22 mmol/L (22-29); CHLORIDE 97 mmol/L (98-107); CREATININE, SERUM 0.77 mg/dL (0.57-1.11); EST GLOMERULAR FILTRATION RATE > 60 ML/MIN (60-); GLUCOSE 112 mg/dL (74-118); POTASSIUM 4.2 mmol/L (3.5-5.1); SODIUM 129 mmol/L (136-145)
[2020-10-14 17:23] VITALS: BP 124/78
== END 2020-10-14 17:43 | disposition home or self-care (01) ==
LOC: ER 16:18
DX: R53.83 Other fatigue (principal); I10 Essential (primary) hypertension; E11.9 Type 2 diabetes mellitus without complications; Z87.19 Personal history of other diseases of the digestive system
CPT/HCPCS: 36415; 80053; 81001; 83880; 84484; 85025; 93005; 99284

== ENCOUNTER 2020-12-03 15:05 | Emergency (ER) | payer MEDICARE, OTHER ==
[~2020-12-03] VITALS: Ht 157.5 cm; Wt 72.6 kg
[2020-12-03] MEDS ORDERED: PANTOPRAZOLE 40 MG 10ML VIAL IV ONE (15:42)
[2020-12-03] MEDS ORDERED: ONDANSETRON HCL INJ 2MG/ML 2ML 2 MG/ML VIAL IV ONE (15:42)
[2020-12-03] MEDS ORDERED: SODIUM CHLORIDE 0.9% 1000ML 1,000 ML IV STA (15:42)
[2020-12-03 16:12] LABS: BASOPHILS # (AUTO) 0.1 (0.0-0.1); BASOPHILS % 0.8 % (0.0-1.0); EOSINOPHILS # (AUTO) 0.1 (0.0-0.4); EOSINOPHILS % 1.2 % (0.0-6.0); HEMATOCRIT 40.8 % (34.2-44.1); HEMOGLOBIN 13.4 g/dL (12.0-16.0); LYMPHOCYTES # (AUTO) 0.9 (1.0-3.2); LYMPHOCYTES % 11.9 % (18.0-39.1); MEAN CORPUSCULAR HEMOGLOBIN 31.7 pg (28-32); MEAN CORPUSCULAR HGB CONC 32.8 g/dL (31-35); MEAN CORPUSCULAR VOLUME 96.5 fL (81-99); MONOCYTES # (AUTO) 0.5 (0.2-0.8); MONOCYTES % 6.2 % (4.4-11.3); NEUTROPHILS # (AUTO) 5.9 (2.1-6.9); NEUTROPHILS % 79.6 % (38.7-80.0); PLATELET COUNT 276 x10e3/uL (140-360); RED BLOOD COUNT 4.23 x10e6/uL (3.6-5.1); RED CELL DISTRIBUTION WIDTH 12.6 % (11.7-14.4)
[2020-12-03 16:14] LABS: CLARITY,URINE CLEAR (CLEAR); COLOR,URINE YELLOW (YELLOW)
[2020-12-03 16:15] LABS: KETONES,URINE NEGATIVE (NEGATIVE); LEUKOCYTE ESTERASE ,URINE MODERATE (NEGATIVE); NITRITE,URINE NEGATIVE (NEGATIVE); PROTEIN,URINE DIPSTICK NEGATIVE (NEGATIVE); URINE UROBILINOGEN 0.2 mg/dL (0.2 - 1)
[2020-12-03 16:25] LABS: BACTERIA,URINE RARE /HPF; EPITHELIAL CELLS,URINE FEW /LPF; RBC,URINE 0-5 /HPF (0-5)
[2020-12-03 16:34] LABS: INR 0.82; PROTHROMBIN TIME 11.9 seconds (11.9-14.5)
[2020-12-03 16:35] LABS: PARTIAL THROMBOPLASTIN TIME 30.1 seconds (23.8-35.5)
[2020-12-03 16:58] LABS: ALANINE AMINOTRANSFERASE 19 IU/L (0-55); ALBUMIN 4.6 g/dL (3.5-5.0); ALBUMIN/GLOBULIN RATIO 1.2 (0.8-2.0); ALKALINE PHOSPHATASE 75 IU/L (40-150); ANION GAP 15.2 mmol/L (8-16); BLOOD UREA NITROGEN 13 mg/dL (7-26); BUN/CREATININE RATIO 17 (6-25); CALCIUM 9.9 mg/dL (8.4-10.2); CARBON DIOXIDE 23 mmol/L (22-29); CHLORIDE 102 mmol/L (98-107); CREATINE KINASE 42 IU/L (29-168); CREATININE, SERUM 0.76 mg/dL (0.57-1.11); EST GLOMERULAR FILTRATION RATE > 60 ML/MIN (60-); GLUCOSE 108 mg/dL (74-118); LIPASE 16 U/L (8-78); MAGNESIUM 2.2 MG/DL (1.3-2.1); POTASSIUM 4.2 mmol/L (3.5-5.1); SODIUM 136 mmol/L (136-145)
[2020-12-03] MEDS ORDERED: CEFTRIAXONE SOD 1 GM VIAL IV ONE (17:00)
[2020-12-03] MEDS ORDERED: CEFTRIAXONE SOD 1 GM in SODIUM CHLORIDE 0.9% 50ML 50 ML IV ONE (17:15)
[2020-12-03] MEDS ORDERED: IOPAMIDOL 370 MG/ML 200 ML INFUS..BTL INJ ONE (17:35)
[2020-12-03] MEDS ORDERED: SODIUM CHLORIDE 0.9% 50ML 50 ML ONE (17:35)
[2020-12-03] MEDS ORDERED: FLAGYL500 MG PO (19:07)
[2020-12-03] MEDS ORDERED: ULTRAM50 MG PO (19:07)
[2020-12-03] MEDS ORDERED: CIPRO500 MG PO (19:07)
[2020-12-03 19:25] VITALS: BP 176/86
== END 2020-12-03 19:29 | disposition home or self-care (01) ==
LOC: ER 15:27
DX: K57.92 Diverticulitis of intestine, part unspecified, without perforation or abscess without bleeding (principal); Z88.5 Allergy status to narcotic agent; Z88.8 Allergy status to other drugs, medicaments and biological substances; E66.9 Obesity, unspecified; Z68.30 Body mass index [BMI] 30.0-30.9, adult
CPT/HCPCS: 36415; 71045; 74177; 80053; 81001; 82550; 82553; 83690; 83735; 84484; 85025; 85610; 85730; 87086; 99284; C9113; J0696; J2405; J7030; Q9967

== ENCOUNTER → 2020-12-23 | Outpatient (CLI) | payer MEDICARE, OTHER ==
[~2020-12-23] MED LIST changes: +CIPRO500 MG PO; +FLAGYL500 MG PO
== END ==
LOC: US 07:38
PROVIDERS: ATTEND Internal Medicine Gastroenterology
DX: R10.2 Pelvic and perineal pain (principal)
CPT/HCPCS: 76856

== ENCOUNTER 2020-12-28 14:35 | Emergency (ER) | payer MEDICARE, OTHER ==
[~2020-12-28] VITALS: Ht 157.5 cm; Wt 72.6 kg
[2020-12-28 15:32] LABS: BASOPHILS # (AUTO) 0.1 (0.0-0.1); EOSINOPHILS # (AUTO) 0.1 (0.0-0.4); EOSINOPHILS % 1.5 % (0.0-6.0); HEMATOCRIT 37.8 % (34.2-44.1); HEMOGLOBIN 12.4 g/dL (12.0-16.0); LYMPHOCYTES # (AUTO) 1.3 (1.0-3.2); LYMPHOCYTES % 20.6 % (18.0-39.1); MEAN CORPUSCULAR HEMOGLOBIN 31.6 pg (28-32); MEAN CORPUSCULAR HGB CONC 32.8 g/dL (31-35); MEAN CORPUSCULAR VOLUME 96.4 fL (81-99); MONOCYTES # (AUTO) 0.7 (0.2-0.8); NEUTROPHILS # (AUTO) 3.9 (2.1-6.9); NEUTROPHILS % 64.4 % (38.7-80.0); PLATELET COUNT 289 x10e3/uL (140-360); RED BLOOD COUNT 3.92 x10e6/uL (3.6-5.1); RED CELL DISTRIBUTION WIDTH 12.7 % (11.7-14.4)
[2020-12-28 15:38] LABS: CLARITY,URINE CLEAR (CLEAR); COLOR,URINE YELLOW (YELLOW); KETONES,URINE NEGATIVE (NEGATIVE); LEUKOCYTE ESTERASE ,URINE SMALL (NEGATIVE); NITRITE,URINE NEGATIVE (NEGATIVE); PROTEIN,URINE DIPSTICK NEGATIVE (NEGATIVE); URINE UROBILINOGEN 0.2 mg/dL (0.2 - 1)
[2020-12-28 15:50] LABS: ALBUMIN/GLOBULIN RATIO 1.1 (0.8-2.0); ANION GAP 14.3 mmol/L (8-16); CALCIUM 8.8 mg/dL (8.4-10.2); CREATININE, SERUM 0.75 mg/dL (0.57-1.11); POTASSIUM 4.3 mmol/L (3.5-5.1)
[2020-12-28 15:52] LABS: BACTERIA,URINE FEW /HPF; EPITHELIAL CELLS,URINE RARE /LPF; RENAL EPITHELIAL CELLS,URINE RARE; WBC,URINE (MAN) 0-5 /HPF (0-5)
== END 2020-12-28 18:17 | disposition home or self-care (01) ==
LOC: ER 15:04
DX: R10.32 Left lower quadrant pain (principal); I10 Essential (primary) hypertension; E11.9 Type 2 diabetes mellitus without complications; Z87.19 Personal history of other diseases of the digestive system
CPT/HCPCS: 36415; 80053; 81001; 85025; 99284

== ENCOUNTER 2021-02-07 18:55 | Emergency (ER) | payer MEDICARE, OTHER ==
[~2021-02-07] VITALS: Ht 157.5 cm; Wt 72.6 kg
[2021-02-07 20:22] LABS: BASOPHILS # (AUTO) 0.1 (0.0-0.1); BASOPHILS % 0.8 % (0.0-1.0); EOSINOPHILS % 0.4 % (0.0-6.0); HEMATOCRIT 38.8 % (34.2-44.1); HEMOGLOBIN 13.1 g/dL (12.0-16.0); LYMPHOCYTES # (AUTO) 0.8 (1.0-3.2); LYMPHOCYTES % 9.5 % (18.0-39.1); MEAN CORPUSCULAR HEMOGLOBIN 31.8 pg (28-32); MEAN CORPUSCULAR HGB CONC 33.8 g/dL (31-35); MEAN CORPUSCULAR VOLUME 94.2 fL (81-99); MONOCYTES # (AUTO) 0.6 (0.2-0.8); MONOCYTES % 6.8 % (4.4-11.3); NEUTROPHILS # (AUTO) 6.8 (2.1-6.9); PLATELET COUNT 286 x10e3/uL (140-360); RED BLOOD COUNT 4.12 x10e6/uL (3.6-5.1); RED CELL DISTRIBUTION WIDTH 12.2 % (11.7-14.4)
[2021-02-07 20:38] LABS: ANION GAP 16.5 mmol/L (8-16); CALCIUM 9.2 mg/dL (8.4-10.2); CREATININE, SERUM 0.71 mg/dL (0.57-1.11); POTASSIUM 4.5 mmol/L (3.5-5.1)
[2021-02-07] MEDS ORDERED: SODIUM CHLORIDE 0.9% 50ML 50 ML ONE (21:55)
[2021-02-07] MEDS ORDERED: IOPAMIDOL 370 MG/ML 200 ML INFUS..BTL INJ ONE (21:55)
[2021-02-07] MEDS ORDERED: DEXAMETHASONE 4 MG TAB PO STA (23:03)
== END 2021-02-07 23:59 | disposition home or self-care (01) ==
LOC: ER 18:55
DX: J02.9 Acute pharyngitis, unspecified (principal); I10 Essential (primary) hypertension; E11.9 Type 2 diabetes mellitus without complications
CPT/HCPCS: 36415; 70491; 80048; 84484; 85025; 93005; 99283; J8540; Q9967

== ENCOUNTER 2021-02-26 11:03 | Emergency (ER) | payer MEDICARE, OTHER ==
[~2021-02-26] VITALS: Ht 152.4 cm; Wt 59.0 kg
[2021-02-26] MEDS ORDERED: SODIUM CHLORIDE 0.9% 1000ML 1,000 ML IV STA (12:09)
[2021-02-26] MEDS ORDERED: ONDANSETRON HCL INJ 2MG/ML 2ML 2 MG/ML VIAL IV NR ×2 (12:15→16:30)
[2021-02-26 12:35] LABS: BASOPHILS % 0.6 % (0.0-1.0); EOSINOPHILS # (AUTO) 0.1 (0.0-0.4); EOSINOPHILS % 0.7 % (0.0-6.0); HEMATOCRIT 40.7 % (34.2-44.1); HEMOGLOBIN 13.4 g/dL (12.0-16.0); LYMPHOCYTES # (AUTO) 0.9 (1.0-3.2); LYMPHOCYTES % 13.1 % (18.0-39.1); MEAN CORPUSCULAR HEMOGLOBIN 31.5 pg (28-32); MEAN CORPUSCULAR HGB CONC 32.9 g/dL (31-35); MEAN CORPUSCULAR VOLUME 95.8 fL (81-99); MONOCYTES # (AUTO) 0.5 (0.2-0.8); MONOCYTES % 6.8 % (4.4-11.3); NEUTROPHILS # (AUTO) 5.3 (2.1-6.9); NEUTROPHILS % 78.5 % (38.7-80.0); PLATELET COUNT 275 x10e3/uL (140-360); RED BLOOD COUNT 4.25 x10e6/uL (3.6-5.1); RED CELL DISTRIBUTION WIDTH 12.7 % (11.7-14.4)
[2021-02-26 12:44] LABS: BACTERIA,URINE RARE /HPF; CLARITY,URINE CLEAR (CLEAR); COLOR,URINE YELLOW (YELLOW); EPITHELIAL CELLS,URINE FEW /LPF; KETONES,URINE 2+ (NEGATIVE); LEUKOCYTE ESTERASE ,URINE TRACE (NEGATIVE); NITRITE,URINE NEGATIVE (NEGATIVE); PROTEIN,URINE DIPSTICK NEGATIVE (NEGATIVE); URINE UROBILINOGEN 0.2 mg/dL (0.2 - 1)
[2021-02-26 12:56] LABS: ALANINE AMINOTRANSFERASE 19 IU/L (0-55); ALBUMIN 4.4 g/dL (3.5-5.0); ALBUMIN/GLOBULIN RATIO 1.1 (0.8-2.0); ALKALINE PHOSPHATASE 69 IU/L (40-150); AMYLASE 45 U/L (25-125); BLOOD UREA NITROGEN 9 mg/dL (7-26); BUN/CREATININE RATIO 12 (6-25); CALCIUM 9.3 mg/dL (8.4-10.2); CARBON DIOXIDE 21 mmol/L (22-29); CHLORIDE 99 mmol/L (98-107); CREATINE KINASE 39 IU/L (29-168); CREATININE, SERUM 0.76 mg/dL (0.57-1.11); EST GLOMERULAR FILTRATION RATE 72 ML/MIN (60-); GLUCOSE 103 mg/dL (74-118); LIPASE 12 U/L (8-78); MAGNESIUM 2.4 MG/DL (1.3-2.1); SODIUM 134 mmol/L (136-145)
[2021-02-26] MEDS ORDERED: SODIUM CHLORIDE 0.9% 50ML 50 ML ONE (14:10)
[2021-02-26] MEDS ORDERED: IOPAMIDOL 370 MG/ML 200 ML INFUS..BTL INJ ONE (14:11)
[2021-02-26] MEDS ORDERED: ONDANSETRON HCL INJ 2MG/ML 2ML 2 MG/ML VIAL ONE (15:36)
[2021-02-26] MEDS ORDERED: SODIUM CHLORIDE 0.9% 1000ML 1,000 ML ONE (15:36)
[2021-02-26 19:15] VITALS: BP 142/65
== END 2021-02-26 19:16 | disposition home or self-care (01) ==
LOC: ER 11:27
DX: R10.9 Unspecified abdominal pain (principal); R11.2 Nausea with vomiting, unspecified; N39.0 Urinary tract infection, site not specified; R19.7 Diarrhea, unspecified; I10 Essential (primary) hypertension; E11.9 Type 2 diabetes mellitus without complications; Z20.822 Contact with and (suspected) exposure to COVID-19; G89.29 Other chronic pain
CPT/HCPCS: 36415; 74177; 80053; 81001; 82150; 82550; 82553; 83690; 83735; 84484; 85025; 87086; 99284; C9113; J2405; J7030; Q9967; U0002

== ENCOUNTER 2021-03-31 18:11 | Emergency (ER) | payer MEDICARE, OTHER ==
[~2021-03-31] VITALS: Ht 157.5 cm; Wt 59.0 kg
[2021-03-31 19:10] LABS: CLARITY,URINE CLEAR (CLEAR); COLOR,URINE YELLOW (YELLOW); KETONES,URINE NEGATIVE (NEGATIVE); LEUKOCYTE ESTERASE ,URINE SMALL (NEGATIVE); NITRITE,URINE NEGATIVE (NEGATIVE); PROTEIN,URINE DIPSTICK NEGATIVE (NEGATIVE); URINE UROBILINOGEN 0.2 mg/dL (0.2 - 1)
[2021-03-31 19:22] LABS: BACTERIA,URINE RARE /HPF
[2021-03-31] MEDS ORDERED: CEFDINIR300 MG PO (20:39)
[2021-03-31] MEDS ORDERED: AZO URINARY P99.5 MG PO (20:39)
[2021-03-31 20:41] VITALS: BP 170/87
[2021-03-31] MEDS ORDERED: PHENAZOPYRIDINE HCL 100 MG TAB PO ONE (21:00)
[2021-03-31] MEDS ORDERED: CEFTRIAXONE 1 GM VIAL IM ONE (21:00)
[2021-03-31] MEDS ORDERED: PHENAZOPYRIDINE HCL 100 MG TAB ONE (21:01)
[2021-03-31] MEDS ORDERED: CEFTRIAXONE 1 GM VIAL ONE (21:01)
== END 2021-03-31 21:10 | disposition home or self-care (01) ==
LOC: ER 18:32
DX: R10.30 Lower abdominal pain, unspecified (principal); N39.0 Urinary tract infection, site not specified; I10 Essential (primary) hypertension; E11.9 Type 2 diabetes mellitus without complications
CPT/HCPCS: 81001; 87086; 99283; J0696

== ENCOUNTER 2021-07-17 16:43 | Emergency (ER) | payer MEDICARE, OTHER ==
[~2021-07-17] VITALS: Ht 157.5 cm; Wt 59.0 kg
[~2021-07-17 16:43] MED LIST changes: +AZO URINARY P99.5 MG PO; +CEFDINIR300 MG PO
[2021-07-17] MEDS ORDERED: CLONIDINE HCL 0.2 MG TAB PO ONE (17:15)
[2021-07-17] MEDS ORDERED: CLONIDINE HCL 0.1 MG TAB PO ONE (17:30)
[2021-07-17 17:44] LABS: BASOPHILS # (AUTO) 0.1 (0.0-0.1); BASOPHILS % 1.3 % (0.0-1.0); EOSINOPHILS # (AUTO) 0.1 (0.0-0.4); EOSINOPHILS % 1.6 % (0.0-6.0); HEMATOCRIT 36.7 % (34.2-44.1); HEMOGLOBIN 12.1 g/dL (12.0-16.0); LYMPHOCYTES # (AUTO) 0.9 (1.0-3.2); LYMPHOCYTES % 13.6 % (18.0-39.1); MEAN CORPUSCULAR HEMOGLOBIN 32.2 pg (28-32); MEAN CORPUSCULAR VOLUME 97.6 fL (81-99); MONOCYTES # (AUTO) 0.6 (0.2-0.8); MONOCYTES % 9.1 % (4.4-11.3); NEUTROPHILS # (AUTO) 4.6 (2.1-6.9); NEUTROPHILS % 74.1 % (38.7-80.0); PLATELET COUNT 256 x10e3/uL (140-360); RED BLOOD COUNT 3.76 x10e6/uL (3.6-5.1); RED CELL DISTRIBUTION WIDTH 11.9 % (11.7-14.4)
[2021-07-17 17:55] LABS: CLARITY,URINE CLEAR (CLEAR); COLOR,URINE YELLOW (YELLOW); KETONES,URINE NEGATIVE (NEGATIVE); LEUKOCYTE ESTERASE ,URINE TRACE (NEGATIVE); NITRITE,URINE NEGATIVE (NEGATIVE); PROTEIN,URINE DIPSTICK NEGATIVE (NEGATIVE)
[2021-07-17 17:56] LABS: URINE UROBILINOGEN 0.2 mg/dL (0.2 - 1)
[2021-07-17 18:01] LABS: ANION GAP 13.3 mmol/L (8-16); CALCIUM 9.4 mg/dL (8.4-10.2); CREATININE, SERUM 0.75 mg/dL (0.57-1.11); POTASSIUM 4.3 mmol/L (3.5-5.1)
[2021-07-17] MEDS ORDERED: SODIUM CHLORIDE 0.9% 500ML 500 ML IV ONE (18:15)
[2021-07-17 18:21] LABS: BACTERIA,URINE RARE /HPF; EPITHELIAL CELLS,URINE RARE /LPF; RBC,URINE 0-5 /HPF (0-5)
== END 2021-07-17 19:49 | disposition home or self-care (01) ==
LOC: ER 17:05
DX: R53.1 Weakness (principal); I10 Essential (primary) hypertension; E87.1 Hypo-osmolality and hyponatremia; N39.0 Urinary tract infection, site not specified; E11.9 Type 2 diabetes mellitus without complications; R94.31 Abnormal electrocardiogram [ECG] [EKG]; R53.83 Other fatigue; Z20.822 Contact with and (suspected) exposure to COVID-19
CPT/HCPCS: 36415; 80048; 81001; 85025; 93005; 99284; J7040; U0002

== ENCOUNTER 2021-10-20 11:24 | Emergency (ER) | payer MEDICARE, OTHER ==
[~2021-10-20] VITALS: Ht 157.5 cm; Wt 59.0 kg
[2021-10-20 12:19] LABS: BASOPHILS # (AUTO) 0.1 (0.0-0.1); BASOPHILS % 1.4 % (0.0-1.0); EOSINOPHILS # (AUTO) 0.1 (0.0-0.4); EOSINOPHILS % 1.4 % (0.0-6.0); HEMATOCRIT 38.8 % (34.2-44.1); HEMOGLOBIN 13.3 g/dL (12.0-16.0); LYMPHOCYTES # (AUTO) 0.8 (1.0-3.2); MEAN CORPUSCULAR HEMOGLOBIN 32.2 pg (28-32); MEAN CORPUSCULAR HGB CONC 34.3 g/dL (31-35); MEAN CORPUSCULAR VOLUME 93.9 fL (81-99); MONOCYTES # (AUTO) 0.4 (0.2-0.8); MONOCYTES % 8.6 % (4.4-11.3); NEUTROPHILS # (AUTO) 3.1 (2.1-6.9); NEUTROPHILS % 71.1 % (38.7-80.0); PLATELET COUNT 282 x10e3/uL (140-360); RED BLOOD COUNT 4.13 x10e6/uL (3.6-5.1)
[2021-10-20 12:26] LABS: CLARITY,URINE CLEAR (CLEAR); COLOR,URINE YELLOW (YELLOW); KETONES,URINE NEGATIVE (NEGATIVE); LEUKOCYTE ESTERASE ,URINE NEGATIVE (NEGATIVE); NITRITE,URINE NEGATIVE (NEGATIVE); PROTEIN,URINE DIPSTICK NEGATIVE (NEGATIVE); URINE UROBILINOGEN 0.2 mg/dL (0.2 - 1)
[2021-10-20 12:34] LABS: ALBUMIN/GLOBULIN RATIO 1.1 (0.8-2.0); ANION GAP 12.3 mmol/L (8-16); CALCIUM 9.1 mg/dL (8.4-10.2); CREATININE, SERUM 0.79 mg/dL (0.57-1.11); POTASSIUM 4.3 mmol/L (3.5-5.1)
[2021-10-20 12:41] LABS: RBC,URINE 0-5 /HPF (0-5); WBC,URINE (MAN) 0-5 /HPF (0-5)
[2021-10-20] MEDS ORDERED: DICYCLOMINE HCL 20 MG/2 ML VIAL IM ONE (13:00)
[2021-10-20] MEDS ORDERED: DICYCLOMINE HCL20 MG PO (13:18)
[2021-10-20 13:58] VITALS: BP 138/76
== END 2021-10-20 13:59 | disposition home or self-care (01) ==
LOC: ER 11:50
DX: R10.30 Lower abdominal pain, unspecified (principal); E11.65 Type 2 diabetes mellitus with hyperglycemia; I10 Essential (primary) hypertension; Z87.19 Personal history of other diseases of the digestive system
CPT/HCPCS: 36415; 74018; 80053; 81001; 83690; 85025; 99284; J0500

== ENCOUNTER 2021-12-15 13:56 | Emergency (ER) | payer MEDICARE, OTHER ==
[~2021-12-15] VITALS: Ht 157.5 cm; Wt 59.0 kg
[~2021-12-15 13:56] MED LIST changes: +DICYCLOMINE HCL20 MG PO
[2021-12-15 14:54] LABS: CLARITY,URINE SL CLOUDY (CLEAR); COLOR,URINE YELLOW (YELLOW); KETONES,URINE NEGATIVE (NEGATIVE); LEUKOCYTE ESTERASE ,URINE NEGATIVE (NEGATIVE); NITRITE,URINE NEGATIVE (NEGATIVE); PROTEIN,URINE DIPSTICK NEGATIVE (NEGATIVE); URINE UROBILINOGEN 0.2 mg/dL (0.2 - 1)
[2021-12-15] MEDS ORDERED: DICYCLOMINE HCL10 MG PO (15:00)
[2021-12-15 15:08] LABS: BACTERIA,URINE RARE /HPF; RBC,URINE 0-5 /HPF (0-5)
== END 2021-12-15 15:05 | disposition home or self-care (01) ==
LOC: ER 14:11
DX: R10.30 Lower abdominal pain, unspecified (principal); G89.29 Other chronic pain; I10 Essential (primary) hypertension; E11.9 Type 2 diabetes mellitus without complications
CPT/HCPCS: 81001; 99283

== ENCOUNTER 2022-01-08 20:49 | Emergency (ER) | payer MEDICARE, OTHER ==
[~2022-01-08] VITALS: Ht 157.5 cm; Wt 59.0 kg
[~2022-01-08 20:49] MED LIST changes: +DICYCLOMINE HCL10 MG PO
[2022-01-08 21:32] LABS: CLARITY,URINE CLEAR (CLEAR); COLOR,URINE YELLOW (YELLOW); KETONES,URINE NEGATIVE (NEGATIVE); LEUKOCYTE ESTERASE ,URINE 1+ (NEGATIVE); NITRITE,URINE NEGATIVE (NEGATIVE); PROTEIN,URINE DIPSTICK NEGATIVE (NEGATIVE); URINE UROBILINOGEN 0.2 mg/dL (0.2 - 1)
[2022-01-08 21:37] LABS: BACTERIA,URINE FEW /HPF; EPITHELIAL CELLS,URINE FEW /LPF; RBC,URINE 0-5 /HPF (0-5); TRANSITIONAL EPI CELLS,URINE FEW
[2022-01-08] MEDS ORDERED: CIPRO500 MG PO (22:40)
[2022-01-08] MEDS ORDERED: DIFLUCAN150 MG PO (23:37)
[2022-01-08] MEDS ORDERED: ACETAMINOPHEN 325 MG TAB PO ONE (23:45)
[2022-01-13] MEDS ORDERED: LISINOPRIL10 MG PO (16:13)
== END 2022-01-08 23:40 | disposition home or self-care (01) ==
LOC: ER 21:02
DX: R10.2 Pelvic and perineal pain (principal); I10 Essential (primary) hypertension; E11.9 Type 2 diabetes mellitus without complications; Z88.5 Allergy status to narcotic agent; Z88.8 Allergy status to other drugs, medicaments and biological substances
CPT/HCPCS: 81001; 99282

== ENCOUNTER 2022-01-11 16:32 | Inpatient (IN) | payer MEDICARE, OTHER ==
[~2022-01-11] VITALS: Ht 157.5 cm; Wt 59.0 kg
[~2022-01-11 16:32] MED LIST changes: +DIFLUCAN150 MG PO
[2022-01-11] MEDS ORDERED: HYDROCODONE/APAP 5MG-325MG TAB PO ONE (17:00)
[2022-01-11 17:20] LABS: BASOPHILS # (AUTO) 0.1 (0.0-0.1); BASOPHILS % 0.6 % (0.0-1.0); EOSINOPHILS # (AUTO) 0.1 (0.0-0.4); EOSINOPHILS % 1.1 % (0.0-6.0); HEMOGLOBIN 11.8 g/dL (12.0-16.0); LYMPHOCYTES # (AUTO) 0.8 (1.0-3.2); LYMPHOCYTES % 8.2 % (18.0-39.1); MEAN CORPUSCULAR HEMOGLOBIN 31.5 pg (28-32); MEAN CORPUSCULAR HGB CONC 31.9 g/dL (31-35); MEAN CORPUSCULAR VOLUME 98.7 fL (81-99); MONOCYTES % 10.4 % (4.4-11.3); NEUTROPHILS # (AUTO) 7.9 (2.1-6.9); NEUTROPHILS % 79.4 % (38.7-80.0); PLATELET COUNT 245 x10e3/uL (140-360); RED BLOOD COUNT 3.75 x10e6/uL (3.6-5.1)
[2022-01-11 17:21] LABS: CLARITY,URINE CLEAR (CLEAR); COLOR,URINE YELLOW (YELLOW); KETONES,URINE NEGATIVE (NEGATIVE); LEUKOCYTE ESTERASE ,URINE TRACE (NEGATIVE); NITRITE,URINE NEGATIVE (NEGATIVE); PROTEIN,URINE DIPSTICK 2+ (NEGATIVE); URINE UROBILINOGEN 0.2 mg/dL (0.2 - 1)
[2022-01-11 17:34] LABS: BACTERIA,URINE FEW /HPF; EPITHELIAL CELLS,URINE MODERATE /LPF; RBC,URINE 0-5 /HPF (0-5); WBC,URINE (MAN) 0-5 /HPF (0-5)
[2022-01-11 17:35] LABS: ALBUMIN 3.7 g/dL (3.5-5.0); ALBUMIN/GLOBULIN RATIO 1.1 (0.8-2.0); ANION GAP 16.1 mmol/L (8-16); CALCIUM 8.1 mg/dL (8.4-10.2); CREATININE, SERUM 1.22 mg/dL (0.57-1.11); POTASSIUM 4.1 mmol/L (3.5-5.1)
[2022-01-11] MEDS ORDERED: SODIUM CHLORIDE 0.9% 1000ML 500 ML IV ONE (18:00)
[2022-01-11] MEDS ORDERED: IOPAMIDOL 370 MG/ML 100 ML INFUS..BTL INJ ONE (18:06)
[2022-01-11] MEDS ORDERED: ONDANSETRON HCL INJ 2MG/ML 2ML 2 MG/ML VIAL IV PRN (20:15)
[2022-01-11] MEDS ORDERED: SODIUM CHLORIDE FLUSH 10 ML SYR INJ PRN (20:15)
[2022-01-11] MEDS ORDERED: Morphine 4mg INJECTION 4 MG/ML INJ IV PRN (20:15)
[2022-01-11 21:54] VITALS: BP 153/84
[2022-01-11 22:04] VITALS: BP 154/84
[2022-01-11 22:12] VITALS: BP 154/84
[2022-01-11] MEDS: SODIUM CHLORIDE 0.9% 1000ML 1,000 ML IV SCH (22:21)
[2022-01-12] VITALS (12 sets, daily range): BP systolic 125–183; BP diastolic 58–116
[2022-01-12 05:36] LABS: BASOPHILS # (AUTO) 0.1 (0.0-0.1); BASOPHILS % 0.6 % (0.0-1.0); EOSINOPHILS # (AUTO) 0.2 (0.0-0.4); EOSINOPHILS % 2.1 % (0.0-6.0); HEMATOCRIT 35.6 % (34.2-44.1); HEMOGLOBIN 11.4 g/dL (12.0-16.0); LYMPHOCYTES % 13.5 % (18.0-39.1); MEAN CORPUSCULAR HEMOGLOBIN 31.5 pg (28-32); MEAN CORPUSCULAR VOLUME 98.3 fL (81-99); MONOCYTES % 13.5 % (4.4-11.3); NEUTROPHILS # (AUTO) 5.4 (2.1-6.9); PLATELET COUNT 198 x10e3/uL (140-360); RED BLOOD COUNT 3.62 x10e6/uL (3.6-5.1); RED CELL DISTRIBUTION WIDTH 13.2 % (11.7-14.4)
[2022-01-12 06:17] LABS: ANION GAP 12.9 mmol/L (8-16); CALCIUM 7.7 mg/dL (8.4-10.2); CREATININE, SERUM 1.47 mg/dL (0.57-1.11); POTASSIUM 3.9 mmol/L (3.5-5.1)
[2022-01-12] MEDS: SODIUM CHLORIDE 0.9% 1000ML 1,000 ML IV SCH ×2 (09:03→16:20)
[2022-01-12] MEDS ORDERED: DEXTROSE 50% SYRINGE 50 ML IV PRN (10:00)
[2022-01-12] MEDS: INSULIN LISPRO 100 UNIT/1 ML 3ML VIAL SQ SCH ×3 (11:30→20:32)
[2022-01-12] MEDS: PANTOPRAZOLE SOD 40 MG TABEC PO SCH (11:53)
[2022-01-12] MEDS: LISINOPRIL 20 MG TAB PO SCH (11:54)
[2022-01-12] MEDS: ENOXAPARIN 30 MG/0.3 ML SYR SC SCH (17:05)
[2022-01-12] MEDS: HYDRALAZINE HCL 20 MG/ML VIAL IV PRN (20:30)
[2022-01-12] MEDS ORDERED: MELATONIN 3 MG TAB PO PRN (23:15)
[2022-01-13] VITALS (9 sets, daily range): BP systolic 129–178; BP diastolic 50–74
[2022-01-13] MEDS: SODIUM CHLORIDE 0.9% 1000ML 1,000 ML IV SCH (04:36)
[2022-01-13] MEDS: INSULIN LISPRO 100 UNIT/1 ML 3ML VIAL SQ SCH ×4 (07:30→21:00)
[2022-01-13] MEDS: PANTOPRAZOLE SOD 40 MG TABEC PO SCH (08:20)
[2022-01-13] MEDS: LISINOPRIL 20 MG TAB PO SCH (08:20)
[2022-01-13] MEDS: (Linagliptin (Tradjenta) 5 MG) PO SCH (09:00)
[2022-01-13] MEDS: HYDRALAZINE HCL 20 MG/ML VIAL IV PRN (13:44)
[2022-01-13] MEDS ORDERED: LISINOPRIL10 MG PO (16:13)
[2022-01-13] MEDS ORDERED: TRAMADOL HCL 50 MG TAB PO PRN (16:15)
[2022-01-13] MEDS: ENOXAPARIN 30 MG/0.3 ML SYR SC SCH (17:16)
[2022-01-14] MEDS: SODIUM CHLORIDE 0.9% 1000ML 1,000 ML IV SCH ×2 (00:15→01:29)
[2022-01-14 05:03] VITALS: BP 165/58
[2022-01-14] MEDS: INSULIN LISPRO 100 UNIT/1 ML 3ML VIAL SQ SCH ×4 (07:30→21:00)
[2022-01-14 08:07] VITALS: BP 155/51
[2022-01-14] MEDS: (Linagliptin (Tradjenta) 5 MG) PO SCH (09:00)
[2022-01-14] MEDS: LISINOPRIL 20 MG TAB PO SCH ×3 (09:12→22:00)
[2022-01-14] MEDS: PANTOPRAZOLE SOD 40 MG TABEC PO SCH (09:13)
[2022-01-14 11:56] VITALS: BP 122/53
[2022-01-14 15:52] VITALS: BP 169/78
[2022-01-14] MEDS: DICYCLOMINE HCL 20 MG TAB PO SCH ×2 (17:00→21:44)
[2022-01-14] MEDS: ENOXAPARIN 30 MG/0.3 ML SYR SC SCH (17:00)
[2022-01-14 20:00] VITALS: BP 141/65
[2022-01-14 21:40] VITALS: BP 141/65
[2022-01-15] VITALS: BP 174/75
[2022-01-15] MEDS ORDERED: BENZONATATE 100 MG CAP PO PRN (00:30)
[2022-01-15 04:00] VITALS: BP 135/47
[2022-01-15] MEDS: INSULIN LISPRO 100 UNIT/1 ML 3ML VIAL SQ SCH ×2 (07:30→11:30)
[2022-01-15 08:25] VITALS: BP 148/57
[2022-01-15] MEDS: LISINOPRIL 20 MG TAB PO SCH (08:37)
[2022-01-15] MEDS: (Linagliptin (Tradjenta) 5 MG) PO SCH (08:37)
[2022-01-15] MEDS: DICYCLOMINE HCL 20 MG TAB PO SCH ×2 (08:37→11:22)
[2022-01-15] MEDS: PANTOPRAZOLE SOD 40 MG TABEC PO SCH (08:38)
[2022-01-15 09:03] VITALS: BP 148/57
[2022-01-15 11:15] VITALS: BP 127/58
[2022-01-15] MEDS ORDERED: CEPHALEXIN250 MG PO (13:01)
== END 2022-01-15 14:38 | disposition home or self-care (01) | DRG 690 ==
LOC: ER 16:37 → ERHOLD 20:11 → MED/SURG3 21:37
PROVIDERS: ADMIT Internal Medicine; ATTEND Internal Medicine
DX: N10 Acute pyelonephritis (principal); E87.1 Hypo-osmolality and hyponatremia; E83.51 Hypocalcemia; E11.9 Type 2 diabetes mellitus without complications; K21.9 Gastro-esophageal reflux disease without esophagitis; E66.9 Obesity, unspecified; R53.81 Other malaise; I12.9 Hypertensive chronic kidney disease with stage 1 through stage 4 chronic kidney disease, or unspecified chronic kidney disease; R10.13 Epigastric pain; R31.29 Other microscopic hematuria; N18.9 Chronic kidney disease, unspecified; Z90.49 Acquired absence of other specified parts of digestive tract; Z88.5 Allergy status to narcotic agent; Z88.8 Allergy status to other drugs, medicaments and biological substances; Z68.23 Body mass index [BMI] 23.0-23.9, adult; Z20.822 Contact with and (suspected) exposure to COVID-19
CPT/HCPCS: 36415; 74177; 80048; 80053; 81001; 82948; 85025; 87086; 99251; 99284; J0360; J0696; J1650; J7030; Q9967

== ENCOUNTER 2022-01-25 16:52 | Emergency (ER) | payer MEDICARE, OTHER ==
[~2022-01-25] VITALS: Ht 157.5 cm; Wt 59.0 kg
[~2022-01-25 16:52] MED LIST changes: +CEPHALEXIN250 MG PO; +LISINOPRIL10 MG PO; +SODIUM CHLORIDE FLUSH 10 ML SYR IV PRN
[2022-01-25] MEDS ORDERED: ONDANSETRON HCL INJ 2MG/ML 2ML 2 MG/ML VIAL IV STA (17:23)
[2022-01-25] MEDS ORDERED: SODIUM CHLORIDE 0.9% 1000ML 1,000 ML IV ONE (17:30)
[2022-01-25 17:39] LABS: BASOPHILS % 0.3 % (0.0-1.0); EOSINOPHILS # (AUTO) 0.1 (0.0-0.4); EOSINOPHILS % 1.5 % (0.0-6.0); HEMOGLOBIN 11.6 g/dL (12.0-16.0); LYMPHOCYTES # (AUTO) 0.9 (1.0-3.2); MEAN CORPUSCULAR HGB CONC 33.1 g/dL (31-35); MEAN CORPUSCULAR VOLUME 93.6 fL (81-99); MONOCYTES # (AUTO) 0.6 (0.2-0.8); MONOCYTES % 9.6 % (4.4-11.3); NEUTROPHILS # (AUTO) 4.2 (2.1-6.9); NEUTROPHILS % 72.1 % (38.7-80.0); PLATELET COUNT 258 x10e3/uL (140-360); RED BLOOD COUNT 3.74 x10e6/uL (3.6-5.1); RED CELL DISTRIBUTION WIDTH 12.7 % (11.7-14.4)
[2022-01-25 17:59] LABS: ALBUMIN 3.8 g/dL (3.5-5.0); ALBUMIN/GLOBULIN RATIO 1.1 (0.8-2.0); ANION GAP 15.4 mmol/L (8-16); CALCIUM 8.1 mg/dL (8.4-10.2); CREATININE, SERUM 0.78 mg/dL (0.57-1.11); POTASSIUM 3.4 mmol/L (3.5-5.1)
[2022-01-25 19:01] LABS: CLARITY,URINE CLEAR (CLEAR); COLOR,URINE YELLOW (YELLOW)
[2022-01-25 19:02] LABS: KETONES,URINE NEGATIVE (NEGATIVE); LEUKOCYTE ESTERASE ,URINE 1+ (NEGATIVE); NITRITE,URINE NEGATIVE (NEGATIVE); PROTEIN,URINE DIPSTICK NEGATIVE (NEGATIVE); URINE UROBILINOGEN 0.2 mg/dL (0.2 - 1)
[2022-01-25 19:19] LABS: BACTERIA,URINE FEW /HPF; EPITHELIAL CELLS,URINE FEW /LPF; RBC,URINE 0-5 /HPF (0-5)
[2022-01-25 19:20] LABS: TRANSITIONAL EPI CELLS,URINE FEW
[2022-01-25] MEDS ORDERED: METRONIDAZOLE500 MG PO (19:58)
[2022-01-25] MEDS ORDERED: CIPRO500 MG PO (19:58)
[2022-01-25 20:07] VITALS: BP 131/70
== END 2022-01-25 20:10 | disposition home or self-care (01) ==
LOC: ER 17:12
DX: R10.30 Lower abdominal pain, unspecified (principal); N39.0 Urinary tract infection, site not specified; R19.7 Diarrhea, unspecified; I10 Essential (primary) hypertension
CPT/HCPCS: 36415; 74176; 80053; 81001; 83690; 85025; 99284; J2405; J7030

== ENCOUNTER 2022-02-02 15:44 | Emergency (ER) | payer MEDICARE, OTHER ==
[~2022-02-02] VITALS: Ht 157.5 cm; Wt 59.0 kg
[~2022-02-02 15:44] MED LIST changes: +METRONIDAZOLE500 MG PO; -SODIUM CHLORIDE FLUSH 10 ML SYR IV PRN
[2022-02-02 19:32] VITALS: BP 172/82
== END 2022-02-02 19:42 | disposition home or self-care (01) ==
LOC: ER 16:39
DX: R07.0 Pain in throat (principal); U07.1 COVID-19; I10 Essential (primary) hypertension; E11.9 Type 2 diabetes mellitus without complications; F03.90 Unspecified dementia, unspecified severity, without behavioral disturbance, psychotic disturbance, mood disturbance, and anxiety; Z87.11 Personal history of peptic ulcer disease
CPT/HCPCS: 83518; 87070; 99283; U0002

== ENCOUNTER 2022-08-16 18:45 | Emergency (ER) | payer MEDICARE, OTHER ==
[~2022-08-16] VITALS: Ht 157.5 cm; Wt 59.0 kg
[2022-08-16] MEDS ORDERED: SODIUM CHLORIDE 0.9% 1000ML 1,000 ML IV STA (19:27)
[2022-08-16 19:46] LABS: BASOPHILS # (AUTO) 0.1 (0.0-0.1); BASOPHILS % 0.9 % (0.0-1.0); EOSINOPHILS # (AUTO) 0.1 (0.0-0.4); EOSINOPHILS % 1.2 % (0.0-6.0); HEMATOCRIT 42.9 % (34.2-44.1); HEMOGLOBIN 13.4 g/dL (12.0-16.0); LYMPHOCYTES # (AUTO) 1.2 (1.0-3.2); LYMPHOCYTES % 17.3 % (18.0-39.1); MEAN CORPUSCULAR HEMOGLOBIN 31.8 pg (28-32); MEAN CORPUSCULAR HGB CONC 31.2 g/dL (31-35); MEAN CORPUSCULAR VOLUME 101.7 fL (81-99); MONOCYTES # (AUTO) 0.6 (0.2-0.8); MONOCYTES % 8.5 % (4.4-11.3); NEUTROPHILS # (AUTO) 4.8 (2.1-6.9); NEUTROPHILS % 71.7 % (38.7-80.0); PLATELET COUNT 264 x10e3/uL (140-360); RED BLOOD COUNT 4.22 x10e6/uL (3.6-5.1)
[2022-08-16 19:47] LABS: CLARITY,URINE CLEAR (CLEAR); COLOR,URINE YELLOW (YELLOW)
[2022-08-16 19:48] LABS: KETONES,URINE NEGATIVE (NEGATIVE); LEUKOCYTE ESTERASE ,URINE TRACE (NEGATIVE); NITRITE,URINE NEGATIVE (NEGATIVE); PROTEIN,URINE DIPSTICK NEGATIVE (NEGATIVE); URINE UROBILINOGEN 0.2 mg/dL (0.2 - 1)
[2022-08-16 19:58] LABS: EPITHELIAL CELLS,URINE FEW /LPF; WBC,URINE (MAN) 0-5 /HPF (0-5)
[2022-08-16 20:07] LABS: ALBUMIN 4.4 g/dL (3.5-5.0); ANION GAP 13.8 mmol/L (8-16); CALCIUM 9.5 mg/dL (8.4-10.2); CREATININE, SERUM 0.8 mg/dL (0.57-1.11); POTASSIUM 4.8 mmol/L (3.5-5.1)
[2022-08-16] MEDS ORDERED: IOPAMIDOL 370 MG/ML 100 ML INFUS..BTL INJ ONE (20:28)
[2022-08-16] MEDS ORDERED: PYRIDIUM100 MG PO (22:20)
[2022-08-16] MEDS ORDERED: CIPRO500 MG PO (22:20)
[2022-08-16 22:37] VITALS: BP 175/80
== END 2022-08-16 22:32 | disposition home or self-care (01) ==
LOC: ER 19:22
DX: R33.9 Retention of urine, unspecified (principal); N13.4 Hydroureter; R10.30 Lower abdominal pain, unspecified; N28.1 Cyst of kidney, acquired; I10 Essential (primary) hypertension; E11.9 Type 2 diabetes mellitus without complications; F03.90 Unspecified dementia, unspecified severity, without behavioral disturbance, psychotic disturbance, mood disturbance, and anxiety; Z87.11 Personal history of peptic ulcer disease
CPT/HCPCS: 36415; 74177; 80053; 81001; 85025; 99284; J7030; Q9967

== ENCOUNTER 2022-10-14 20:12 | Emergency (ER) | payer MEDICARE, OTHER ==
[~2022-10-14] VITALS: Ht 157.5 cm; Wt 59.0 kg
[~2022-10-14 20:12] MED LIST changes: +PYRIDIUM100 MG PO
[2022-10-14] MEDS ORDERED: SODIUM CHLORIDE 0.9% 1000ML 1,000 ML IV STA (20:22)
[2022-10-14 21:07] LABS: BASOPHILS % 0.7 % (0.0-1.0); EOSINOPHILS # (AUTO) 0.1 (0.0-0.4); EOSINOPHILS % 1.3 % (0.0-6.0); HEMATOCRIT 34.1 % (34.2-44.1); HEMOGLOBIN 11.4 g/dL (12.0-16.0); LYMPHOCYTES # (AUTO) 0.8 (1.0-3.2); LYMPHOCYTES % 13.2 % (18.0-39.1); MEAN CORPUSCULAR HEMOGLOBIN 31.8 pg (28-32); MEAN CORPUSCULAR HGB CONC 33.4 g/dL (31-35); MONOCYTES # (AUTO) 0.6 (0.2-0.8); MONOCYTES % 9.2 % (4.4-11.3); NEUTROPHILS # (AUTO) 4.5 (2.1-6.9); NEUTROPHILS % 75.3 % (38.7-80.0); PLATELET COUNT 213 x10e3/uL (140-360); RED BLOOD COUNT 3.59 x10e6/uL (3.6-5.1); RED CELL DISTRIBUTION WIDTH 12.1 % (11.7-14.4)
[2022-10-14 21:29] LABS: BACTERIA,URINE FEW /HPF; CLARITY,URINE CLEAR (CLEAR); COLOR,URINE COLORLESS (YELLOW); EPITHELIAL CELLS,URINE FEW /LPF; KETONES,URINE NEGATIVE (NEGATIVE); LEUKOCYTE ESTERASE ,URINE SMALL (NEGATIVE); NITRITE,URINE NEGATIVE (NEGATIVE); PROTEIN,URINE DIPSTICK NEGATIVE (NEGATIVE); RBC,URINE 0-5 /HPF (0-5); URINE UROBILINOGEN 0.2 mg/dL (0.2 - 1)
[2022-10-14 21:32] LABS: ALANINE AMINOTRANSFERASE 12 IU/L (0-55); ALBUMIN 3.6 g/dL (3.5-5.0); ALBUMIN/GLOBULIN RATIO 1.1 (0.8-2.0); ALKALINE PHOSPHATASE 73 IU/L (40-150); ANION GAP 12.6 mmol/L (8-16); BLOOD UREA NITROGEN 11 mg/dL (7-26); BUN/CREATININE RATIO 14 (6-25); CALCIUM 8.7 mg/dL (8.4-10.2); CARBON DIOXIDE 25 mmol/L (22-29); CHLORIDE 102 mmol/L (98-107); CREATINE KINASE 54 IU/L (29-168); CREATININE, SERUM 0.79 mg/dL (0.57-1.11); GLUCOSE 110 mg/dL (74-118); POTASSIUM 3.6 mmol/L (3.5-5.1); SODIUM 136 mmol/L (136-145)
== END 2022-10-14 22:50 | disposition home or self-care (01) ==
LOC: ER 20:16
DX: I16.0 Hypertensive urgency (principal); F41.9 Anxiety disorder, unspecified
CPT/HCPCS: 36415; 70450; 80053; 81001; 82550; 82553; 84484; 85025; 93005; 99284; J7030

== ENCOUNTER 2022-11-06 21:48 | Emergency (ER) | payer MEDICARE, OTHER ==
[~2022-11-06] VITALS: Ht 157.5 cm; Wt 59.0 kg
[2022-11-06] MEDS ORDERED: AUGMENTIN 500-1 EACH PO (22:26)
== END 2022-11-06 22:35 | disposition home or self-care (01) ==
LOC: ER 22:00
DX: H10.9 Unspecified conjunctivitis (principal)
CPT/HCPCS: 99282

== ENCOUNTER 2022-11-15 22:01 | Emergency (ER) | payer MEDICARE, OTHER ==
[~2022-11-15] VITALS: Ht 157.5 cm; Wt 59.0 kg
[~2022-11-15 22:01] MED LIST changes: +AUGMENTIN 500-1 EACH PO
[2022-11-15 22:32] LABS: CLARITY,URINE SL CLOUDY (CLEAR); COLOR,URINE YELLOW (YELLOW); KETONES,URINE NEGATIVE (NEGATIVE); LEUKOCYTE ESTERASE ,URINE SMALL (NEGATIVE); NITRITE,URINE NEGATIVE (NEGATIVE); PROTEIN,URINE DIPSTICK NEGATIVE (NEGATIVE); URINE UROBILINOGEN 0.2 mg/dL (0.2 - 1)
[2022-11-15 22:36] LABS: BACTERIA,URINE FEW /HPF; EPITHELIAL CELLS,URINE MANY /LPF; RBC,URINE 0-5 /HPF (0-5)
[2022-11-15] MEDS ORDERED: CIPRO500 MG PO (23:03)
[2022-11-15 23:31] VITALS: O2SAT 100
== END 2022-11-15 23:34 | disposition home or self-care (01) ==
LOC: ER 22:04
DX: R30.0 Dysuria (principal); N39.0 Urinary tract infection, site not specified; R19.7 Diarrhea, unspecified; I10 Essential (primary) hypertension; E11.9 Type 2 diabetes mellitus without complications; F03.90 Unspecified dementia, unspecified severity, without behavioral disturbance, psychotic disturbance, mood disturbance, and anxiety; Z87.11 Personal history of peptic ulcer disease
CPT/HCPCS: 81001; 99283